=== PATIENT | female | born 1995 | race Caucasian/White ===

== ENCOUNTER 2023-03-14 11:54 | Emergency (ER) | payer OTHER, SELFPAY ==
[2023-03-14 11:55] VITALS: BP 116/66; PULSE 100; RESP 16; TEMP 36.4; O2SAT 100; BMI 26.6
--- NOTE | 2023-03-14 12:27 | CT_ITS ---
STUDY: CT ABDOMEN AND PELVIS WITH CONTRAST REASON FOR EXAM: Female, 28 years old. Right lower quadrant pain RADIATION DOSAGE (If Supplied By Facility): CTDIvol = ( 10.32 ) mGy, DLP = ( 720.09 ) mGycm TECHNIQUE: IV 100mL Isovue-370 was administered. Transaxial images were obtained from the dome of the diaphragm to the symphysis pubis. Multiplanar coronal and sagittal images were reformatted. Individualized Dose Optimization Techniques Were Used For This CT. COMPARISON: No relevant prior comparison study available FINDINGS: The visualized lung bases are unremarkable. The visualized portions of the heart are within normal limits. Normal liver. Normal gallbladder and extrahepatic biliary system. Normal spleen. Normal pancreas. Normal bilateral adrenal glands. Normal visualized stomach. Nonspecific fluid-filled small bowel loops. Mildly dilated bowel loop in the left upper abdomen. No evidence of bowel obstruction. Mild sigmoid diverticulosis without evidence of acute diverticulitis. The appendix is visualized and appears normal. Normal abdominal aorta. No retroperitoneal adenopathy. No evidence of hydronephrosis. Right ureter is slightly prominent without evidence of ureteral stones. Normal urinary bladder. IUD in place. Normal abdominal wall. Unremarkable osseous structures. CT/Abdomen/Pelvis W IV Cont ONLY IMPRESSION: 1. Nonspecific fluid-filled small bowel loops without evidence of bowel obstruction. Enteritis is possible. 2. Otherwise no focal acute inflammatory process. 3. IUD in place. Electronically Signed: Bal Gillis MD at 13:59 EST ,
--- NOTE | 2023-03-14 12:28 | ED.VIS.GI ---
HPI HPI - GI History of Present Illness Chief Complaint: Abd Pain Narrative Narrative: 28-year-old female with history of IBS presenting with right lower quadrant abdominal pain. States started yesterday. States is been pretty constant. Describes it as sharp and aching. Yesterday she had some nausea and vomiting today she has not. She admits to diarrhea today. No fevers or chills at home. Patient states her only abdominal surgery was a suction. Patient states she just finished her menstrual cycle and does not believe she is . No history of abdominal trauma. Denies urinary or vaginal complaints. Patient also notes she is having some tingling in the bilateral hands and around her mouth. Denies history of anxiety. PFSH PFS Medical History (Updated 03/14/23 @ 12:40 by Monisha Robb RN) Gastroenteritis IBS (irritable bowel syndrome) Von Willebrand disease Home Medications alprazolam 0.5 mg tablet (Xanax) 0.5 mg PO TID PRN abdominal pain 3 days #12 tabs 03/14/23 [Rx Last Taken Unknown] dicyclomine 20 mg tablet 20 mg PO TID PRN abdominal pain #30 tabs 03/14/23 [Rx Last Taken Unknown] ondansetron 4 mg disintegrating tablet 4 mg PO Q8H PRN PRN Nausea #14 tabs 03/14/23 [Rx Last Taken Unknown] ondansetron 8 mg disintegrating tablet 8 mg PO Q12H PRN nausea and vomiting 03/14/23 [History Last Taken Unknown] venlafaxine 37.5 mg capsule,extended release 24 hr 37.5 mg PO DAILY 03/14/23 [History Last Taken 03/14/23] Allergy/AdvReac Type Severity Reaction Status Date / Time aspirin AdvReac Severe Bleeding Verified 02/10/21 11:13 ibuprofen AdvReac Severe Bleeding Verified 02/10/21 11:13 naproxen AdvReac Severe Bleeding Verified 02/10/21 11:13 Surgical History (Updated 03/14/23 @ 12:40 by Monisha Robb RN) Hx of section Hx of tonsillectomy Social History Smoking Status: Never smoker ROS ROS ED Review of Systems ROS Unobtainable: Denies due to encephalopathy Constitutional Constitutional ED: Denies chills or fever(s) ENT ENT ED: Denies rhinorrhea or sore throat Cardiovascular Cardiovascular: Denies chest pain or palpitations Respiratory/Chest Respiratory/Chest: Denies cough or dyspnea Gastrointestinal Gastrointestinal: Reports abdominal pain, diarrhea, nausea and vomiting Genitourinary Genitourinary ED: Denies dysuria or hematuria Musculoskeletal Musculoskeletal: Denies arthralgias Integumentary Denies abscess or Abrasions Neurologic Neurologic: Denies headache(s) Psychiatric Psychiatric: Denies anxiety or depression EXAM Physical Exam Const Vital Signs: 03/14/23 11:55 Temperature 97.5 F L Temperature Source Temporal Pulse Rate 100 Respiratory Rate 16 Blood Pressure 116/66 Blood Pressure Mean 82 Pulse Ox 100 Oxygen Delivery Method Room Air Positive well nourished General Appearance ED: NAD; Negative for pallor HEENT Reports moist mucous membranes normocephalic and atraumatic Eyes PERRL and EOMs intact bilaterally Resp normal respiratory effort Effort and Inspection: Negative for respiratory distress Cardio regular rate and regular rhythm GI Palpation: tender RLQ Back/Spine no CVA tenderness Neuro CN's II-XII intact bilaterally Psych mental status grossly normal and thought process normal Skin no wounds General Skin Exam: Negative for jaundice or pallor MDM MDM MDM Narrative Medical decision making narrative: Patient presenting with right flank pain. Differential includes colitis, diverticulitis, gastritis, pancreatitis, acute cholecystitis, constipation, appendicitis, UTI, pyelonephritis, calculi, ureteral calculi, obstruction, malignancy, dehydration, electrolyte abnormalities, ovarian torsion, ovarian cyst, ectopic . CBC will be obtained to assess white blood cell count, hemoglobin, platelets. CMP to assess liver function, renal function, electrolytes. Lipase to assess for pancreatitis. Urinalysis to assess for UTI. hCG to assess for . Medicated with morphine, Zofran, IV fluids. CBC shows no leukocytosis. Hemoglobin stable at 14.8. Platelet count normal at 277. Renal function and electrolytes within normal limits. LFTs are normal. Lipase is normal. hCG is negative. Urinalysis negative. CT of the abdomen pelvis with IV contrast was obtained and shows nonspecific enteritis. Patient had return of pain after been given morphine initially. She states that she does see a GI doctor where she is at [facility] and has had recent endoscopy. She states has been on venlafaxine amitriptyline therapy without any relief. She states she is treated by her primary care physician because her GI doctor is not helpful in her mind. Discussed with Dr. Mcmillan who is on-call who recommended that if the patient is still having this kind of pain to give her a dose of Ativan here in the ED. She will be put on Xanax 0.5 mg 3 times daily per GI. He stated that he does have openings in GI office that may become available this week if the patient calls the office. Patient also given ZoanHenryyl for home. Return precautions were discussed. Impression: 1. 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 2. History of IBS 3. Enteritis Lab Data Attestation: I reviewed the patient's lab results. Labs: Laboratory Results - last 24 hr 03/14/23 03/14/23 12:35 13:10 WBC 8.2 RBC 5.29 Hgb 15.8 H Hct 45.5 MCV 86.0 MCH 29.9 MCHC 34.7 RDW Std Deviation 37.0 RDW Coeff of Johnny 11.8 Plt Count 277 MPV 11.0 Immature Gran % (Auto) 0.200 Neut % (Auto) 64.3 Lymph % (Auto) 26.0 [place] % (Auto) 7.1 Eos % (Auto) 2.0 Baso % (Auto) 0.4 Absolute Neuts (auto) 5.3 Absolute Lymphs (auto) 2.13 Nucleated RBC % 0 Sodium 139 Potassium 3.2 L Chloride 103 Carbon Dioxide 29.0 Anion Gap 7 BUN 8 Creatinine 0.91 Estim Creat Clear Calc 76.82 Est GFR (MDRD) Af Amer 95 Est GFR (MDRD) Non-Af 79 BUN/Creatinine Ratio 8.8 L Glucose 93 Calcium 9.6 Total Bilirubin 0.70 Direct Bilirubin 0.19 AST 13 L ALT 16 Alkaline Phosphatase 66 Total Protein 8.6 H Albumin 4.4 Globulin 4.2 Lipase 57 Serum , Qual NEGATIVE Urine Color Yellow Urine Clarity Clear Urine pH 8.0 Ur Specific [place] 1.010 Urine Protein Negative Urine Glucose (UA) Normal Urine Ketones 15 H Urine Occult Blood Negative Urine Nitrite Negative Urine Bilirubin Negative Urine Urobilinogen Normal Ur Leukocyte Esterase Negative Urine RBC 0 SEEN Urine WBC 0 SEEN Ur Squamous Epith Cells 0-5 SEEN Urine Bacteria 0 SEEN Urine Mucus 0 SEEN Radiography Diagnostic Testing: Clinical Impression(s) from Imaging Studies Abdomen/Pelvis CT 03/14/23 12:27 IMPRESSION: 1. Nonspecific fluid-filled small bowel loops without evidence of bowel obstruction. Enteritis is possible. 2. Otherwise no focal acute inflammatory process. 3. IUD in place. Electronically Signed: Bal Gillis MD at 13:59 EST , Discharge Plan Triage Chief Complaint: Abd Pain ED Provider: Ventura Bah Dx/Rx/DC Orders Instructions: ED Abdominal Pain Unkn Cause Fem Prescriptions: New dicyclomine 20 mg tablet 20 mg PO TID PRN (Reason: abdominal pain) Qty: 30 0RF ondansetron 4 mg tablet,disintegrating 4 mg PO Q8H PRN PRN (Reason: Nausea) Qty: 14 0RF alprazolam [Xanax] 0.5 mg tablet 0.5 mg PO TID PRN (Reason: abdominal pain) 3 Days Qty: 12 0RF No Action venlafaxine 37.5 mg capsule,extended release 24hr 37.5 mg PO DAILY ondansetron 8 mg tablet,disintegrating 8 mg PO Q12H PRN (Reason: nausea and vomiting) Primary Care Provider: Marlene Lara Referrals: Jagjit Mcmillan DO [Med Staff - Active Staff] - As soon as possible Marlene Lara MD [Primary Care Provider] - Disposition Disposition: Home, Self Care
[2023-03-14] MEDS: Ondansetron 4 MG/2 ML Vial IV (12:43)
[2023-03-14] MEDS: 0.9% Normal Saline (1000mL) 1,000 ML 1000 ML IV (12:43)
[2023-03-14] MEDS: Morphine 4 MG/ML Syringe IV (12:45)
[2023-03-14 12:51] LABS: Internal QC Validated? YES +Cl - CLEAR BKGD; Pregnancy, Serum, hCG Quali. NEGATIVE Negative
[2023-03-14 12:52] LABS: Absolute Lymphocyte Count 2.13 X10^3/uL (0.83-4.51); Absolute Neutrophil Count 5.3 X10^3/uL (2.0-7.7); Basophil# 0.03 X10^3/uL; Basophil% 0.4 % (0-1); Eosinophil# 0.16 X10^3/uL; Hematocrit 45.5 % (37-47); Hemoglobin 15.8 g/dL (12.0-15.0); Lymphocyte # 2.13 X10^3/ul (0.83-4.51); Mean Corp Hgb Conc 34.7 g/dL (32-36); Mean Corpuscular Hgb 29.9 pg (27.0-32.0); Monocyte# 0.58 X10^3/uL; Monocyte% 7.1 % (0-10); NRBC Flagged by Analyzer 0 % (0-5); Neutrophil # 5.28 X10^3/uL (2.7-7.7); Neutrophil % 64.3 % (47-70); Platelet Count 277 K/mm3 (150-450); RBC Distribution Width CV 11.8 % (11.6-14.6); Red Blood Count 5.29 M/mm3 (4.2-5.4); White Blood Count 8.2 K/mm3 (4.4-11.0)
[2023-03-14 12:59] LABS: AST(SGOT) 13 U/L (15-37); Alanine Aminotransfer ALT/SGPT 16 U/L (13-56); Albumin, Serum 4.4 g/dL (3.2-5.0); Alkaline Phosphatase 66 U/L (45-117); Anion Gap 7 (5-15); BUN 8 mg/dL (7-18); BUN/Creat Ratio 8.8 RATIO (10-20); Bilirubin, Direct 0.19 mg/dL (0.00-0.30); Calcium,Total 9.6 mg/dL (8.5-10.1); Chloride 103 mmol/L (98-107); Creatinine, Serum 0.91 mg/dL (0.55-1.02); EST Glomerular Filtration Rate 79 mL/min (>60); Est Glom Filt Rate - Afr Amer 95 mL/min (>60); Estimated Creatinine Clearance 76.82 ml/min; Globulin 4.2 g/dL (2.2-4.2); Glucose 93 mg/dL (74-106); Lipase 57 U/L (13-75); Potassium 3.2 mmol/L (3.5-5.1); Protein, Total 8.6 g/dL (6.4-8.2); Sodium Level 139 mmol/L (136-145)
[2023-03-14 13:15] LABS: Bacteria 0 SEEN /hpf (None Seen); Mucous, Urine 0 SEEN /hpf (<or=2+); Red Blood Cells-Urine 0 SEEN /hpf (0-5); White Blood Cells 0 SEEN /hpf (0-5)
[2023-03-14 13:25] LABS: Color, Urine Yellow (Yellow); Glucose, Dipstick Normal (Normal); Ketone-Dipstick 15 mg/dl (Negative); Leukocyte Esterase-Dipstick Negative /ul (Negative); Nitrite-Dipstick Negative (Negative); Occult Blood-Urine Negative /ul (Negative); Protein-Dipstick Negative (Negative); Urine Bilirubin Dipstick Negative (Negative); Urine Clarity Clear (Clear); Urine Urobilinogen Normal (Normal)
[2023-03-14 13:36] LABS: Squamous Epithelial Cells - UA 0-5 SEEN /hpf (5-10)
[2023-03-14 16:00] VITALS: BP 116/64; PULSE 86; RESP 16; O2SAT 99
[2023-03-14] MEDS: LORazepam 2 MG/ML Syringe 0.5 MG IV (16:12)
[2023-03-14 16:19] VITALS: BP 116/64; PULSE 86; RESP 16; O2SAT 99
== END 2023-03-14 16:30 | disposition home or self-care (01) ==
PROVIDERS: Emergency Provider Student in an Organized Health Care Education/Training Program; PCP Family Medicine; Visit Provider Student in an Organized Health Care Education/Training Program
DX: K52.9 Noninfective gastroenteritis and colitis, unspecified (principal); Z87.19 Personal history of other diseases of the digestive system
CPT/HCPCS: 74177; 80048; 80076; 81001; 83690; 84703; 85025; 96361; 96374; 96375; 99283; J7030; Q9967; A4216; J2405

== ENCOUNTER 2023-06-16 11:04 | Emergency (ER) | payer OTHER, SELFPAY ==
[2023-06-16 11:04] VITALS: BP 119/85; PULSE 135; RESP 18; TEMP 36.3; O2SAT 100; BMI 28.2
[2023-06-16] MEDS: 0.9% Normal Saline (1000mL) 1,000 ML 1000 ML IV (11:30)
--- NOTE | 2023-06-16 11:56 | ED.VIS.GI ---
HPI HPI - GI History of Present Illness Chief Complaint: Abd Pain Detail of Chief Complaint: Nausea, vomiting and diarrhea. Informant: patient Abdominal Pain/Flank Pain Onset: Month(s) Context: Gradual Onset Timing: Intermittent Location: Epigastric Current Severity: Mild Maximum Severity: Mild Worsened by: Nothing Nausea/Vomiting/Emesis GI Symptom: Positive for Nausea and Vomiting Onset: Days and Month(s) Severity: Mild Diarrhea/Melena/Hematochezia GI Symptom: Positive for Diarrhea; Negative for Melena or Hematochezia Onset: Today Stool Quality: Positive for Watery Severity: Moderate Associated Symptoms Associated Symptoms: Negative for Dysuria, Frequency, Hematuria or Urgency Narrative Narrative: 28-year-old female history of IBS has had extensive workup by GI doctors at the [facility] and also currently seeing GI at [facility]. She had a CAT scan here in February that showed enteritis. She has had upper and lower endoscopy through the [facility] but was unremarkable with a biopsy. She had a recent gastric emptying study at [facility] which was negative and has a pending HIDA scan next week. Patient states she has had nausea and vomiting since Wednesday as her diarrhea today. No fever. Over the last 6 months she has had a 53 pound weight loss. She has Zofran at home and Phenergan for nausea. Her only prior abdominal surgery was ureter reimplantation at a very young age and a prior 7 years ago. Prior similar symptoms: Yes Recent Illness/Hospitalization: No PFSH [facility] Medical History Gastroenteritis IBS (irritable bowel syndrome) Von Willebrand disease Home Medications alprazolam 0.5 mg tablet (Xanax) 0.5 mg PO TID PRN abdominal pain 3 days #12 tabs 03/14/23 [Rx Last Taken Unknown] dicyclomine 20 mg tablet 20 mg PO TID PRN abdominal pain #30 tabs 03/14/23 [Rx Last Taken Unknown] ondansetron 4 mg disintegrating tablet 4 mg PO Q8H PRN PRN Nausea #14 tabs 03/14/23 [Rx Last Taken Unknown] ondansetron 8 mg disintegrating tablet 8 mg PO Q12H PRN nausea and vomiting 03/14/23 [History Last Taken Unknown] venlafaxine 37.5 mg capsule,extended release 24 hr 37.5 mg PO DAILY 03/14/23 [History Last Taken 03/14/23] Allergy/AdvReac Type Severity Reaction Status Date / Time dicyclomine Allergy Mild palpitation Verified 06/16/23 12:03 s aspirin AdvReac Severe Bleeding Verified 06/16/23 11:06 ibuprofen AdvReac Severe Bleeding Verified 06/16/23 11:06 naproxen AdvReac Severe Bleeding Verified 06/16/23 11:06 Surgical History Hx of section Hx of tonsillectomy Social History Smoking Status: Never smoker ROS ROS ED ROS Narrative Nausea, vomiting and diarrhea. Abdominal cramping. Review of Systems ROS Unobtainable: Denies due to encephalopathy Constitutional Constitutional ED: Denies chills or fever(s) ENT ENT ED: Denies ear pain Cardiovascular Cardiovascular: Denies chest pain Respiratory/Chest Respiratory/Chest: Denies cough or dyspnea Gastrointestinal Gastrointestinal: Reports abdominal pain, constipation, diarrhea, nausea and vomiting; Denies melena Genitourinary Genitourinary ED: Denies dysuria or hematuria Musculoskeletal Musculoskeletal: Denies arthralgias Integumentary Denies abscess Neurologic Neurologic: Denies headache(s) Psychiatric Psychiatric: Denies anxiety Endocrine Endocrinology: Denies polydipsia Hematologic/Lymphatic Hematologic/Lymphatic: Denies easy bleeding Allergic/Immunologic Allergic/Immunologic ED: Denies tongue swelling or urticaria EXAM Physical Exam Narrative Exam Narrative: Well-appearing 28-year-old female. Vital signs stable she is tachycardic 135. H EENT exam unremarkable. Moist with membranes. Neck nontender. Lungs clear to auscultation bilaterally. Heart tachycardic rate about 110 on my exam no murmur. Chest wall nontender. Abdomen soft, nontender nondistended normal bowel sounds no peritoneal signs. No hernia or mass. No obstruction. No right upper or right lower quadrant tenderness. Extremities moves all 4. Nontender no edema. Neurologically awake alert no focal motor deficits. Back nontender. Neurologically she is awake and alert. She is a very benign exam. She has a totally benign abdominal exam. She is already received almost a liter of IV normal saline. Const Vital Signs: 06/16/23 11:04 06/16/23 12:11 Temperature 97.4 F L Temperature Source Temporal Pulse Rate 135 H 89 Respiratory Rate 18 18 Blood Pressure 119/85 H 115/65 Blood Pressure Mean 96 81 Pulse Ox 100 100 Oxygen Delivery Method Room Air Room Air Positive well nourished and well developed; Negative for cachectic, contractures or unkempt General Appearance ED: well developed; Negative for unkempt, cachectic, contractures or pallor Nutritional Appearance: Negative for cachectic HEENT Reports moist mucous membranes; Denies dry mucous membranes normocephalic and atraumatic; Negative for trauma or tenderness Mouth ED: No dry mucous membranes Mouth: No dry mucous membranes Eyes PERRL and EOMs intact bilaterally General Eye ED: Negative for pale conjunctiva, scleral icterus or other Neck supple and no JVD General: Negative for tenderness Carotids: Negative for other Lymph Lymphatic: Negative for other Resp normal respiratory effort and clear to auscultation bilaterally Effort and Inspection: Negative for respiratory distress Auscultation: Negative for rales, rhonchi or wheezes Cardio regular rhythm, S1 normal heart sound, S2 normal heart sound and no murmurs; Negative for regular rate Rate: tachycardic GI non-tender, non-distended and no masses Inspection: Negative for abdominal distention Auscultation: normoactive bowel sounds Palpation: soft; Negative for tender, guarding or rebound tenderness present Back/Spine no CVA tenderness General Back: Negative for CVA tenderness Cervical Spine: Negative for cervical spine tenderness Thoracic Spine / Upper Back: Negative for thoracic spinal tenderness Lumbar Spine / Lower Back: Negative for lumbar spinal tenderness Coccyx: Negative for other Extremity full ROM General Extremety ED: Negative for edema, tenderness or other findings General Extremity: Negative for edema or other findings Neuro CN's II-XII intact bilaterally and moves all extremities Sensorium / Orientation: alert, oriented to person, oriented to place and oriented to time; Negative for orientation impaired, confused, lethargic or stuporous Motor Exam: strength 5/5 throughout Psych mental status grossly normal and thought process normal Appearance: Negative for unkempt Attitude: No agitated Mood & Affect: Negative for depressed, anxious or tearful Skin no wounds General Skin Exam: Negative for jaundice or pallor Lesions: no lesions Rashes: no rashes Trauma: Negative for abrasion Nails: Negative for discolored MDM MDM MDM Narrative Medical decision making narrative: Well-appearing 28-year-old female history of IBS and undergoing significant workup through GI at 2 other hospitals that currently has not found any other diagnoses. Complaining of nausea vomiting and diarrhea today. Treated with IV fluids. Screening labs to be obtained. She understands that we probably will not make any new diagnoses today. Continue outpatient follow-up. She will be given Zofran for nausea and Bentyl for pain. Patient was initially written for Bentyl which she said it does not help her and did not want to take it. She was given 4 mg IV morphine. Repeat exam she is doing well at 1:43 PM. She will be discharged to home. Follow-up with her primary care physician and her GI doctors at [facility]. History & Record Review Discussion w/independent historian: Patient Additional record(s) reviewed:: Prior inpatient record, Prior outpatient record, Prior ED visit and Prior labs Lab Data Attestation: I reviewed the patient's lab results. Lab results narrative: CBC normal. White count 10. H&H 15 and 44. Platelets 260. Electrolytes show sodium 139 gap of 2. Normal BUN and creatinine. Liver enzymes unremarkable. Lipase normal at 26. Labs: Laboratory Results - last 24 hr 06/16/23 11:20 WBC 10.2 RBC 5.00 Hgb 15.2 H Hct 44.7 MCV 89.4 MCH 30.4 MCHC 34.0 RDW Std Deviation 38.6 RDW Coeff of Johnny 11.9 Plt Count 260 MPV 10.9 Immature Gran % (Auto) 0.400 Neut % (Auto) 74.1 H Lymph % (Auto) 16.4 L [place] % (Auto) 5.7 Eos % (Auto) 2.8 Baso % (Auto) 0.6 Absolute Neuts (auto) 7.5 Absolute Lymphs (auto) 1.66 Nucleated RBC % 0 Sodium 139 Potassium 3.6 Chloride 108 H Carbon Dioxide 29.0 Anion Gap 2 L BUN 9 Creatinine 0.65 Estim Creat Clear Calc 114.49 Est GFR (MDRD) Af Amer 140 Est GFR (MDRD) Non-Af 116 BUN/Creatinine Ratio 13.8 Glucose 86 Calcium 8.9 Total Bilirubin 0.50 AST 18 ALT 21 Alkaline Phosphatase 68 Total Protein 7.6 Albumin 3.8 Globulin 3.8 Albumin/Globulin Ratio 1.0 Lipase 26 Discharge Plan Triage Chief Complaint: Abd Pain ED Provider: Branden Huang Dx/Rx/DC Orders Clinical Impression: Nausea, vomiting, and diarrhea, History of IBS, History of von Willebrand's disease, 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 Instructions: ED Abdominal Pain Unkn Cause Fem Prescriptions: No Action venlafaxine 37.5 mg capsule,extended release 24hr 37.5 mg PO DAILY ondansetron 8 mg tablet,disintegrating 8 mg PO Q12H PRN (Reason: nausea and vomiting) dicyclomine 20 mg tablet 20 mg PO TID PRN (Reason: abdominal pain) Qty: 30 0RF ondansetron 4 mg tablet,disintegrating 4 mg PO Q8H PRN PRN (Reason: Nausea) Qty: 14 0RF alprazolam [Xanax] 0.5 mg tablet 0.5 mg PO TID PRN (Reason: abdominal pain) 3 Days Qty: 12 0RF Primary Care Provider: Marlene Lara Referrals: Marlene Lara MD [Primary Care Provider] - As Needed Activity Restrictions/Additional Instructions: Use your nausea medication at home as needed. Plenty of fluids and rest. Follow-up with your GI doctors at [facility] for further evaluation and your HIDA scan next week. Disposition Disposition: Home, Self Care
[2023-06-16] MEDS: Ondansetron 4 MG/2 ML Vial IV (12:03)
[2023-06-16 12:11] VITALS: BP 115/65; PULSE 89; RESP 18; O2SAT 100
[2023-06-16 12:22] LABS: Absolute Lymphocyte Count 1.66 X10^3/uL (0.83-4.51); Absolute Neutrophil Count 7.5 X10^3/uL (2.0-7.7); Basophil# 0.06 X10^3/uL; Basophil% 0.6 % (0-1); Eosinophil# 0.28 X10^3/uL; Eosinophils% 2.8 % (0-5); Hematocrit 44.7 % (37-47); Hemoglobin 15.2 g/dL (12.0-15.0); Lymphocyte # 1.66 X10^3/ul (0.83-4.51); Lymphocyte % 16.4 % (19-41); Mean Corpuscular Hgb 30.4 pg (27.0-32.0); Mean Corpuscular Volume 89.4 fL (81-99); Mean Platelet Vol. 10.9 fl (6.2-12.0); Monocyte# 0.58 X10^3/uL; Monocyte% 5.7 % (0-10); NRBC Flagged by Analyzer 0 % (0-5); Neutrophil # 7.53 X10^3/uL (2.7-7.7); Neutrophil % 74.1 % (47-70); Platelet Count 260 K/mm3 (150-450); RBC Distribution Width CV 11.9 % (11.6-14.6); RBC Distribution Width SD 38.6 fl (35.1-43.9); White Blood Count 10.2 K/mm3 (4.4-11.0)
[2023-06-16 12:23] LABS: AST(SGOT) 18 U/L (15-37); Alanine Aminotransfer ALT/SGPT 21 U/L (13-56); Albumin, Serum 3.8 g/dL (3.2-5.0); Alkaline Phosphatase 68 U/L (45-117); Anion Gap 2 (5-15); BUN 9 mg/dL (7-18); BUN/Creat Ratio 13.8 RATIO (10-20); Calcium,Total 8.9 mg/dL (8.5-10.1); Chloride 108 mmol/L (98-107); Creatinine, Serum 0.65 mg/dL (0.55-1.02); EST Glomerular Filtration Rate 116 mL/min (>60); Est Glom Filt Rate - Afr Amer 140 mL/min (>60); Estimated Creatinine Clearance 114.49 ml/min; Globulin 3.8 g/dL (2.2-4.2); Glucose 86 mg/dL (74-106); Lipase 26 U/L (13-75); Potassium 3.6 mmol/L (3.5-5.1); Protein, Total 7.6 g/dL (6.4-8.2); Sodium Level 139 mmol/L (136-145)
[2023-06-16] MEDS: Morphine 4 MG/ML Syringe IV (13:10)
[2023-06-16 13:54] VITALS: BP 115/65; PULSE 89; RESP 18; TEMP 36.3; O2SAT 100
== END 2023-06-16 14:02 | disposition home or self-care (01) ==
PROVIDERS: Emergency Provider Emergency Medicine; PCP Family Medicine; Visit Provider Emergency Medicine
DX: R11.2 Nausea with vomiting, unspecified (principal); D68.00 Von Willebrand disease, unspecified; Z87.19 Personal history of other diseases of the digestive system; K59.00 Constipation, unspecified; R19.7 Diarrhea, unspecified; R10.9 Unspecified abdominal pain
CPT/HCPCS: 80053; 83690; 85025; 96361; 96374; 96375; 99283; J7030; A4216; J2405

== ENCOUNTER 2024-05-31 09:03 | Emergency (ER) | payer OTHER, SELFPAY ==
[2024-05-31 09:04] VITALS: BP 118/84; PULSE 98; RESP 18; TEMP 37.2; O2SAT 99; BMI 30.2
--- NOTE | 2024-05-31 09:18 | ED.VIS.GI ---
HPI HPI - GI History of Present Illness Chief Complaint: Abd Pain Narrative Narrative: History of irritable syndrome status post cholecystectomy August 2023 presents with nausea vomiting diarrhea for last couple days. She does have history of von Willebrand's disease. Intermittent bloody stools. Pain across her upper abdomen. No urinary symptoms. No fevers. States had 3 loose stools today. She has been vomiting only in the mornings. She has seen GI with upper and lower scopes along with gastric emptying test has been negative. She was doing better post her cholecystectomy. No recent antibiotics. Zofran taken at 4 in the morning, still currently nauseated. Last menstrual period the 17th of last month, she does have an IUD. Prior similar symptoms: Yes PFSH PFSH Medical History IBS (irritable bowel syndrome) Von Willebrand disease Gastroenteritis Home Medications ?Medication ?Instructions ?Recorded ?Last Taken ?Type alprazolam 0.5 mg tablet (Xanax) 0.5 mg PO TID PRN abdominal pain 3 03/14/23 Unknown Rx days #12 tabs dicyclomine 20 mg tablet 20 mg PO TID PRN abdominal pain 03/14/23 Unknown Rx #30 tabs ondansetron 4 mg disintegrating 4 mg PO Q8H PRN PRN Nausea #14 tabs 03/14/23 Unknown Rx tablet ondansetron 8 mg disintegrating 8 mg PO Q12H PRN nausea and 03/14/23 Unknown History tablet vomiting venlafaxine 37.5 mg 37.5 mg PO DAILY 03/14/23 03/14/23 History capsule,extended release 24 hr fluconazole 150 mg tablet 150 mg PO X1 PRN yeast 2 doses #2 05/31/24 Unknown Rx tabs nitrofurantoin 100 mg PO Q12 #10 CAPSULES 05/31/24 Unknown Rx monohydrate/macrocrystals 100 mg capsule Allergy/AdvReac Type Severity Reaction Status Date / Time dicyclomine Allergy Mild palpitation Verified 05/31/24 09:04 s aspirin AdvReac Severe Bleeding Verified 05/31/24 09:04 ibuprofen AdvReac Severe Bleeding Verified 05/31/24 09:04 naproxen AdvReac Severe Bleeding Verified 05/31/24 09:04 Family History no significant family his Surgical History Hx of section Hx of tonsillectomy Social History Smoking Status: Former smoker ROS ROS ED Constitutional Constitutional ED: Denies chills, fever(s) or sweats ENT ENT ED: Denies sore throat Cardiovascular Cardiovascular: Denies chest pain, leg edema, palpitations or racing heartbeat Respiratory/Chest Respiratory/Chest: Denies cough, dyspnea or dyspnea on exertion Gastrointestinal Gastrointestinal: Reports abdominal pain, diarrhea, nausea and vomiting Genitourinary Genitourinary ED: Denies dysuria, hematuria or urinary frequency Musculoskeletal Musculoskeletal: Denies back pain, extremity pain or neck pain Integumentary Denies rash or wounds Neurologic Neurologic: Denies headache(s), paresthesias or weakness EXAM Physical Exam Const Vital Signs: 05/31/24 09:04 05/31/24 11:03 05/31/24 13:00 Temperature 98.9 F Temperature Source Oral Pulse Rate 98 77 72 Respiratory Rate 18 18 Blood Pressure 118/84 H 109/65 107/59 L Blood Pressure Mean 95 79 75 Pulse Ox 99 100 100 Oxygen Delivery Method Room Air Room Air Room Air 05/31/24 13:51 Temperature Temperature Source Pulse Rate Respiratory Rate Blood Pressure 107/59 L Blood Pressure Mean 75 Pulse Ox Oxygen Delivery Method Positive well nourished and well developed General Appearance ED: well developed and NAD HEENT Reports moist mucous membranes normocephalic and atraumatic Eyes General Eye ED: Yes normal appearance of both eyes Neck full ROM Chest Wall Chest: Negative for tenderness Resp normal respiratory effort and normal air movement Effort and Inspection: symmetric chest movement; Negative for respiratory distress Cardio regular rate, regular rhythm and no murmurs Peripheral Pulses: pulses 2+ throughout GI normal to inspection, nondistended, normoactive bowel sounds GI Narrative: Minimal mid abdominal tenderness. Negative Nava's or McBurney's tenderness. No guarding or rebound. Palpation: Negative for guarding or rebound tenderness present Extremity normal to inspection General Extremety ED: Negative for edema or tenderness General Extremity: Negative for edema Neuro oriented x3 and no sensory deficits noted Sensorium / Orientation: awake and alert Skin no rashes or lesions noted and no wounds MDM MDM MDM Narrative Medical decision making narrative: Interventions / MDM: Differential diagnosis: Vomiting diarrhea, abdominal pain, history of IBS, UTI Diagnosis considered but do not suspect: Bowel obstruction however CT negative. No clinical ileus. C. difficile however labs normal. My EKG interpretation: N/A Imaging independently reviewed and interpreted by myself: CT abdomen pelvis: Questionable ileus per radiology. External documents reviewed: N/A Test considered but not ordered:N/A ED course: Vital stable nonsurgical abdomen. IV established for labs urine will be sent. Will give fluids and Zofran. Stool studies ordered. Will reevaluate. 1110: Abdominal labs normal. Nausea improved however still complains of abdominal pain. She cannot do Bentyl due to palpitations. Will dose IV Pepcid. Discussed further workup with CT scan for which she would like to pursue. She did give us stool samples which is being sent to the lab at this time. 1345: C. difficile negative culture pending. Urine did note leukocytes 2+ bacteria 5-10 squamous cells. For patient history of ureteral reflux repair as a child she states any signs of infection she is treated as it can lead to pyelonephritis. Her CT scan possible ileus per radiology however she is having loose stools, therefore less likely ileus concerns. She is able tolerate p.o. fluids, oral antibiotics was started. She has Pepcid Zofran at home to use. Prescription antibiotics and Diflucan sent to her pharmacy. Return precautions. All questions were answered. Re-evaluation: stable Disposition discussed with patient/family/significant other: Patient Case discussed with consulting clinician: N/A This note was generated with [employer] dictation software. It may contain incorrect words, spelling, and punctuation that were not noted in checking the note before signing. Lab Data Attestation: I reviewed the patient's lab results. Labs: Laboratory Results - last 24 hr 05/31/24 05/31/24 09:10 09:22 WBC 7.7 RBC 4.99 Hgb 15.3 H Hct 44.6 MCV 89.4 MCH 30.7 MCHC 34.3 RDW Std Deviation 38.7 RDW Coeff of Johnny 11.9 Plt Count 250 MPV 10.2 Immature Gran % (Auto) 0.500 Neut % (Auto) 53.2 Lymph % (Auto) 29.5 [place] % (Auto) 8.4 Eos % (Auto) 7.6 H Baso % (Auto) 0.8 Absolute Neuts (auto) 4.1 Absolute Lymphs (auto) 2.26 Nucleated RBC % 0 Sodium 138 Potassium 3.5 Chloride 105 Carbon Dioxide 27.0 Anion Gap 6 BUN 8 Creatinine 0.71 Estim Creat Clear Calc 111.87 Est GFR (MDRD) Af Amer 125 Est GFR (MDRD) Non-Af 103 BUN/Creatinine Ratio 11.2 Glucose 88 Calcium 9.0 Total Bilirubin 0.60 Direct Bilirubin 0.11 AST 17 ALT 22 Alkaline Phosphatase 63 Total Protein 7.7 Albumin 3.8 Globulin 3.9 Albumin/Globulin Ratio 1.0 Lipase 24 Urine Color Yellow Urine Clarity Sl. Cloudy Urine pH 7.0 Ur Specific [place] 1.010 Urine Protein 15 H Urine Glucose (UA) Normal Urine Ketones Negative Urine Occult Blood 25 H Urine Nitrite Negative Urine Bilirubin Negative Urine Urobilinogen Normal Ur Leukocyte Esterase 25 H Urine RBC 0-5 SEEN Urine WBC 0-5 SEEN Ur Squamous Epith Cells 5-10 SEEN Urine Bacteria 2+ Urine Mucus 0 SEEN Urine Test Negative Radiography Diagnostic Testing: Clinical Impression(s) from Imaging Studies Abdomen/Pelvis CT 05/31/24 11:06 IMPRESSION: Mild distended fluid-filled small bowel loops in left upper quadrant. Fluid and fecal material seen in the right hemicolon. The patient is status post cholecystectomy. One or more dose reduction techniques were used (e.g., Automated exposure control, adjustment of the mA and/or kV according to patient size, use of iterative reconstruction technique). Reading Location: [place] [address] Discharge Plan Triage Chief Complaint: Abd Pain ED Provider: Alonzo Argueta Dx/Rx/DC Orders Clinical Impression: Vomiting, Diarrhea, 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, History of IBS, UTI (urinary tract infection) Instructions: Abdominal Pain, ED Diarrhea, Unknown Cause, ED Vomiting (Adult) Prescriptions: New nitrofurantoin monohyd/m-cryst 100 mg capsule 100 mg PO Q12 Qty: 10 0RF fluconazole 150 mg tablet 150 mg PO X1 PRN (Reason: yeast) Qty: 2 0RF Rx Instructions: take if you develop yeast, repeat in 1 week if needed No Action venlafaxine 37.5 mg capsule,extended release 24hr 37.5 mg PO DAILY ondansetron 8 mg tablet,disintegrating 8 mg PO Q12H PRN (Reason: nausea and vomiting) dicyclomine 20 mg tablet 20 mg PO TID PRN (Reason: abdominal pain) Qty: 30 0RF ondansetron 4 mg tablet,disintegrating 4 mg PO Q8H PRN PRN (Reason: Nausea) Qty: 14 0RF alprazolam [Xanax] 0.5 mg tablet 0.5 mg PO TID PRN (Reason: abdominal pain) 3 Days Qty: 12 0RF Stand Alone Forms: ED Work / School Excuse Primary Care Provider: Marlene Lara Referrals: Marlene Lara MD [Primary Care Provider] - Activity Restrictions/Additional Instructions: C. difficile negative. Stool culture pending results. Urine with signs of bacteria with cultures pending. You are started on antibiotic. Your CT abdomen pelvis possible ileus, clinically no ileus as you are having diarrhea. Continue oral fluids for hydration. Continue your Zofran and Pepcid. Use Diflucan as needed if you develop yeast. Follow-up with your doctor. You develop worsening symptoms not controlled medications, return to ED for reevaluation. Print Language: Serbian Disposition Disposition: Home, Self Care
[2024-05-31 09:25] LABS: Mucous, Urine 0 SEEN /hpf (<or=2+)
[2024-05-31 09:31] LABS: Absolute Lymphocyte Count 2.26 X10^3/uL (0.83-4.51); Absolute Neutrophil Count 4.1 X10^3/uL (2.0-7.7); Basophil# 0.06 X10^3/uL; Basophil% 0.8 % (0-1); Eosinophil# 0.58 X10^3/uL; Eosinophils% 7.6 % (0-5); Hematocrit 44.6 % (37-47); Hemoglobin 15.3 g/dL (12.0-15.0); Lymphocyte # 2.26 X10^3/ul (0.83-4.51); Lymphocyte % 29.5 % (19-41); Mean Corp Hgb Conc 34.3 g/dL (32-36); Mean Corpuscular Hgb 30.7 pg (27.0-32.0); Mean Corpuscular Volume 89.4 fL (81-99); Mean Platelet Vol. 10.2 fl (6.2-12.0); Monocyte# 0.64 X10^3/uL; Monocyte% 8.4 % (0-10); NRBC Flagged by Analyzer 0 % (0-5); Neutrophil # 4.07 X10^3/uL (2.7-7.7); Neutrophil % 53.2 % (47-70); Platelet Count 250 K/mm3 (150-450); RBC Distribution Width CV 11.9 % (11.6-14.6); RBC Distribution Width SD 38.7 fl (35.1-43.9); Red Blood Count 4.99 M/mm3 (4.2-5.4); White Blood Count 7.7 K/mm3 (4.4-11.0)
[2024-05-31 09:38] LABS: Color, Urine Yellow (Yellow); Glucose, Dipstick Normal (Normal); Ketone-Dipstick Negative (Negative); Leukocyte Esterase-Dipstick 25 /ul (Negative); Nitrite-Dipstick Negative (Negative); Occult Blood-Urine 25 /ul (Negative); Protein-Dipstick 15 mg/dl (Negative); Urine Bilirubin Dipstick Negative (Negative); Urine Clarity Sl. Cloudy (Clear); Urine Urobilinogen Normal (Normal)
[2024-05-31] MEDS: Ondansetron 4 MG/2 ML Vial IV (09:39)
[2024-05-31] MEDS: 0.9% Normal Saline (1000mL) 1,000 ML 1000 ML IV (09:40)
[2024-05-31 09:45] LABS: Bacteria 2+ /hpf (None Seen); Squamous Epithelial Cells - UA 5-10 SEEN /hpf (5-10)
[2024-05-31 09:46] LABS: Internal QC Validated? YES +Cl - CLEAR BKGD; Pregnancy, Urine Negative Negative; Red Blood Cells-Urine 0-5 SEEN /hpf (0-5); White Blood Cells 0-5 SEEN /hpf (0-5)
[2024-05-31 09:51] LABS: AST(SGOT) 17 U/L (15-37); Alanine Aminotransfer ALT/SGPT 22 U/L (13-56); Albumin, Serum 3.8 g/dL (3.2-5.0); Alkaline Phosphatase 63 U/L (45-117); Anion Gap 6 (5-15); BUN 8 mg/dL (7-18); BUN/Creat Ratio 11.2 RATIO (10-20); Bilirubin, Direct 0.11 mg/dL (0.00-0.30); Chloride 105 mmol/L (98-107); Creatinine, Serum 0.71 mg/dL (0.55-1.02); EST Glomerular Filtration Rate 103 mL/min (>60); Est Glom Filt Rate - Afr Amer 125 mL/min (>60); Estimated Creatinine Clearance 111.87 ml/min; Globulin 3.9 g/dL (2.2-4.2); Glucose 88 mg/dL (74-106); Potassium 3.5 mmol/L (3.5-5.1); Protein, Total 7.7 g/dL (6.4-8.2); Sodium Level 138 mmol/L (136-145)
[2024-05-31 10:35] LABS: Lipase 24 U/L (13-75)
[2024-05-31 11:03] VITALS: BP 109/65; PULSE 77; O2SAT 100
--- NOTE | 2024-05-31 11:06 | CT_ITS ---
PROCEDURE: ABDOMEN/PELVIS W IV CONT ONLY REASON FOR EXAM: Nausea and vomiting and diarrhea since Wednesday. TECHNIQUE: Abdomen and pelvis CT with intravenous contrast. Oral contrast was also used. IV CONTRAST: 100 cc of Isovue-300. COMPARISON: Comparison is made with prior study dated March 14, 2023. FINDINGS: Lung bases: Clear Liver: Unremarkable. Gallbladder: Surgically absent. Spleen: Unremarkable. Pancreas: Unremarkable. Adrenals: Unremarkable. Kidneys: Unremarkable. Bladder: Unremarkable. Reproductive Organs: IUD is seen within the uterus. Bowel: Fluid and fecal material seen in the right hemicolon. Mildly distended fluid-filled small bowel loops in the left upper quadrant. This may represent localized ileus. Appendix: Normal. Lymph nodes: No suspicious lymph node enlargement. Vasculature: Major vascular structures are unremarkable. Peritoneum / Retroperitoneum: No ascites. No free air. Bones: Unremarkable. CT/Abdomen/Pelvis W IV Cont ONLY IMPRESSION: Mild distended fluid-filled small bowel loops in left upper quadrant. Fluid and fecal material seen in the right hemicolon. The patient is status post cholecystectomy. One or more dose reduction techniques were used (e.g., Automated exposure contr ol, adjustment of the mA and/or kV according to patient size, use of iterative reconstruction technique). Reading Location: [place] [address]
[2024-05-31] MEDS: Famotidine 200 MG/20 ML MDV 20 MG in 0.9% Normal Saline (Pres. free 8 ML 300 MG IV (11:42)
[2024-05-31 13:00] VITALS: BP 107/59; PULSE 72; RESP 18; O2SAT 100
[2024-05-31] MEDS: Nitrofurantoin Macrocrystals 100 MG Capsule PO (13:30)
[2024-05-31 13:51] VITALS: BP 107/59
== END 2024-05-31 14:23 | disposition home or self-care (01) ==
PROVIDERS: Emergency Provider Emergency Medicine; PCP Family Medicine; Visit Provider Emergency Medicine
DX: R11.2 Nausea with vomiting, unspecified (principal); D68.00 Von Willebrand disease, unspecified; R00.2 Palpitations; Z87.891 Personal history of nicotine dependence; Z90.49 Acquired absence of other specified parts of digestive tract; R19.7 Diarrhea, unspecified; R10.9 Unspecified abdominal pain; N39.0 Urinary tract infection, site not specified; K58.9 Irritable bowel syndrome, unspecified
CPT/HCPCS: 74177; 80053; 80076; 81001; 81025; 83690; 85025; 87086; 87088; 87493; 87506; 96361; 96374; 96375; 99283; Q9967; A4216; J2405

== ENCOUNTER 2024-08-31 13:35 | Emergency (ER) | payer OTHER, SELFPAY ==
[2024-08-31 13:36] VITALS: BP 116/79; PULSE 109; RESP 15; TEMP 36.9; O2SAT 97; BMI 31.8
[2024-08-31 14:18] LABS: Absolute Lymphocyte Count 3.11 X10^3/uL (0.83-4.51); Absolute Neutrophil Count 5.7 X10^3/uL (2.0-7.7); Basophil# 0.07 X10^3/uL; Basophil% 0.7 % (0-1); Eosinophil# 0.28 X10^3/uL; Eosinophils% 2.8 % (0-5); Hematocrit 44.4 % (37-47); Hemoglobin 15.7 g/dL (12.0-15.0); Lymphocyte # 3.11 X10^3/ul (0.83-4.51); Lymphocyte % 31.1 % (19-41); Mean Corp Hgb Conc 35.4 g/dL (32-36); Mean Corpuscular Hgb 30.4 pg (27.0-32.0); Mean Platelet Vol. 10.5 fl (6.2-12.0); Monocyte# 0.83 X10^3/uL; Monocyte% 8.3 % (0-10); NRBC Flagged by Analyzer 0 % (0-5); Neutrophil # 5.69 X10^3/uL (2.7-7.7); Neutrophil % 56.8 % (47-70); Platelet Count 260 K/mm3 (150-450); RBC Distribution Width CV 11.8 % (11.6-14.6); RBC Distribution Width SD 37.3 fl (35.1-43.9); Red Blood Count 5.16 M/mm3 (4.2-5.4)
[2024-08-31 14:30] LABS: Internal QC Validated? YES +Cl - CLEAR BKGD; Pregnancy, Serum, hCG Quali. NEGATIVE Negative; Record Kit Lot#, Serum Preg. 929381
[2024-08-31 14:35] LABS: ALB/GLOB Ratio 1.4 RATIO (0.9-2.4); AST(SGOT) 24 U/L (<=31); Alanine Aminotransfer ALT/SGPT 18 U/L (<=34); Albumin, Serum 4.6 g/dL (3.5-5.0); Alkaline Phosphatase 68 U/L (35-104); Anion Gap 11 (5-15); BUN 7 mg/dL (4-19); BUN/Creat Ratio 9.1 RATIO (10-20); Calcium,Total 9.2 mg/dL (7.6-11.0); Carbon Dioxide 26.4 mmol/L (21.0-32.0); Chloride 101 mmol/L (98-108); Creatinine, Serum 0.72 mg/dL (0.70-1.20); EST Glomerular Filtration Rate 117 (>60); Estimated Creatinine Clearance 113.18 ml/min (50-250); Globulin 3.3 g/dL (2.2-4.2); Glucose 80 mg/dL (70-99); Lipase 253 U/L (13-75); Potassium 3.4 mmol/L (3.3-5.1); Protein, Total 7.9 g/dL (5.9-8.4); Sodium Level 138 mmol/L (133-145); Total Bilirubin 0.59 mg/dL (0.00-1.30)
[2024-08-31 15:35] VITALS: BP 103/63; PULSE 89; O2SAT 98
--- NOTE | 2024-08-31 15:47 | ED.VIS.GI ---
HPI HPI - GI History of Present Illness Chief Complaint: GI Bleed Detail of Chief Complaint: 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 and rectal bleeding Informant: patient Narrative Narrative: Patient presents with abdominal pain and rectal bleeding that started 2 days ago. She also has history of IBS and history of of von Willebrand's disease type I. She called her lab courier 2 days ago who told her to take her DDAVP which she did in the bleeding seemed to slow down a little bit. Patient also complaining of a headache which she states is a side effect of taking the DDAVP. She has had watery stools that have been bloody. She states that her last colonoscopy was about a year ago and she was told she had diverticulosis and some inflammation of the colon but not totally consistent with Crohn's. Patient denies any fevers. She denies urinary symptoms. She has had no nausea or vomiting. [facility] Medical History IBS (irritable bowel syndrome) Von Willebrand disease Gastroenteritis Home Medications ?Medication ?Instructions ?Recorded ?Last Taken ?Type alprazolam 0.5 mg tablet (Xanax) 0.5 mg PO TID PRN abdominal pain 3 03/14/23 Unknown Rx days #12 tabs ondansetron 8 mg disintegrating 8 mg PO Q12H PRN nausea and 03/14/23 Unknown History tablet vomiting alprazolam 0.5 mg tablet (Xanax) 0.5 mg PO BID PRN anxiety #10 tabs 08/31/24 Unknown Rx amoxicillin 875 mg-potassium 1 tab PO BID #20 tabs 08/31/24 Unknown Rx clavulanate 125 mg tablet escitalopram oxalate 20 mg tablet 20 mg PO QHS 08/31/24 08/30/24 History hyoscyamine sulfate 0.125 mg 0.125 - 0.25 mg sublingual TID PRN 08/31/24 Unknown History sublingual tablet dyspepsia promethazine 12.5 mg tablet 12.5 mg PO TID PRN nausea and 08/31/24 Unknown History vomiting Allergy/AdvReac Type Severity Reaction Status Date / Time dicyclomine Allergy Mild palpitation Verified 08/31/24 13:41 s aspirin AdvReac Severe Bleeding Verified 08/31/24 13:41 ibuprofen AdvReac Severe Bleeding Verified 08/31/24 13:41 naproxen AdvReac Severe Bleeding Verified 08/31/24 13:41 Family History no significant family his Surgical History Hx of section Hx of tonsillectomy Social History Smoking Status: Former smoker ROS ROS ED Review of Systems ROS Unobtainable: other Constitutional Constitutional ED: Reports lethargy; Denies chills, fever(s), sweats or weight loss Eyes Eyes: Denies blurry vision, change in vision or diplopia ENT ENT ED: Denies rhinorrhea or sore throat Cardiovascular Cardiovascular: Denies chest pain, orthopnea or racing heartbeat Respiratory/Chest Respiratory/Chest: Denies cough, dyspnea, dyspnea on exertion, orthopnea or sputum Gastrointestinal Gastrointestinal: Reports abdominal pain and other Details: Bright red blood per rectum ; Denies diarrhea, nausea or vomiting Genitourinary Genitourinary ED: Denies dysuria, hematuria or urinary frequency Musculoskeletal Musculoskeletal: Denies arthralgias, back pain, myalgias or neck pain Integumentary Denies abscess, Abrasions or rash Neurologic Neurologic: Denies headache(s) or weakness Psychiatric Psychiatric: Denies anxiety, depression or suicidal thoughts Endocrine Endocrinology: Denies polydipsia, polyphagia or polyuria Hematologic/Lymphatic Hematologic/Lymphatic: Denies easy bleeding, easy bruising or lymphadenopathy Allergic/Immunologic Allergic/Immunologic ED: Denies mouth swelling, tongue swelling or urticaria EXAM Physical Exam Const Vital Signs: 08/31/24 13:36 08/31/24 15:35 08/31/24 16:36 Temperature 98.4 F Temperature Source Oral Pulse Rate 109 H 89 Pulse Rate [Lying] 87 Pulse Rate [Sitting (for 1 minute prior to obtaining)] 90 Pulse Rate [Standing (for 1 minute prior to obtaining)] 106 H Respiratory Rate 15 Blood Pressure 116/79 103/63 Blood Pressure [Lying] 103/63 Blood Pressure [Sitting (for 1 minute prior to obtaining)] 110/74 Blood Pressure [Standing (for 1 minute prior to obtaining)] 107/68 Blood Pressure Mean 91 76 Blood Pressure Mean [Lying] 76 Blood Pressure Mean [Sitting (for 1 minute prior to obtaining)] 86 Blood Pressure Mean [Standing (for 1 minute prior to obtaining)] 81 Pulse Ox 97 98 Oxygen Delivery Method Room Air 08/31/24 17:00 08/31/24 17:03 Temperature 98.7 F Temperature Source Oral Pulse Rate 89 Pulse Rate [Lying] Pulse Rate [Sitting (for 1 minute prior to obtaining)] Pulse Rate [Standing (for 1 minute prior to obtaining)] Respiratory Rate 16 Blood Pressure 127/79 H 127/79 H Blood Pressure [Lying] Blood Pressure [Sitting (for 1 minute prior to obtaining)] Blood Pressure [Standing (for 1 minute prior to obtaining)] Blood Pressure Mean 95 95 Blood Pressure Mean [Lying] Blood Pressure Mean [Sitting (for 1 minute prior to obtaining)] Blood Pressure Mean [Standing (for 1 minute prior to obtaining)] Pulse Ox 95 Oxygen Delivery Method Room Air Positive well nourished and well developed General Appearance ED: well developed and NAD HEENT Reports TM's clear and moist mucous membranes normocephalic and atraumatic; Negative for trauma or tenderness Tympanic Membrane ED: Yes TM's clear Eyes PERRL and EOMs intact bilaterally General Eye ED: Negative for pale conjunctiva or scleral icterus Neck no lymphadenopathy, supple and no JVD General: Negative for tenderness Chest Wall inspection of chest normal and palpation of chest normal Chest: Negative for tenderness Resp normal respiratory effort and clear to auscultation bilaterally Effort and Inspection: Negative for respiratory distress or pain with movement Auscultation: Negative for rhonchi, wheezes or diminished lung sounds Cardio regular rate, regular rhythm, S1 normal heart sound, S2 normal heart sound and no murmurs Peripheral Pulses: pulses 2+ throughout GI normal to inspection, nondistended, normoactive bowel sounds, soft to palpation, non-distended and no masses GI Narrative: Mild diffuse tenderness. There is no rebound, rigidity, peritoneal signs. No mass palpated. Rectal exam-patient refused rectal exam and understands I cannot rule out fissure or hemorrhoid or rectal masses. Patient is adamant that there is no such issue going on in does not want to have a rectal exam performed. Back/Spine no CVA tenderness and no thoracic nor lumbar tenderness Extremity normal to inspection General Extremety ED: Negative for edema General Extremity: Negative for edema Neuro oriented x3, CN's II-XII intact bilaterally, no sensory deficits noted and gait normal Sensorium / Orientation: awake, alert, oriented to person, oriented to place and oriented to time Motor Exam: strength 5/5 throughout and strength abnormal Psych mental status grossly normal Skin no rashes or lesions noted and no wounds MDM MDM MDM Narrative Medical decision making narrative: Patient presents with rectal bleeding and history of von Willebrand type I. Clinically looks well. Patient refused rectal exam. Understands I cannot rule out fissure or hemorrhoid or rectal mass or other process. I will establish. CBC with differential obtained showed white count of 10.0 with hemoglobin 15.7 and platelet count of 260. Chemistries unremarkable. Lactate was less than 1. LFTs were normal. hCG was negative. CT scan of the abdomen pelvis obtained showed descending and rectosigmoid colon wall thickening with mild submucosal hyperemia and mesenteric soft tissue stranding concerning for acute infectious colitis. Patient was medicated with morphine and Zofran initially. Discussed case with GI Dr. Mcmillan. Will start patient on Augmentin. Will also write a prescription for a few Xanax as she states sometimes this helps her more than narcotic pain medication for the pain she will follow-up with Dr. Mcmillan's office. Lab Data Attestation: I reviewed the patient's lab results. Labs: Laboratory Results - last 24 hr 08/31/24 08/31/24 14:05 17:00 WBC 10.0 RBC 5.16 Hgb 15.7 H Hct 44.4 MCV 86.0 MCH 30.4 MCHC 35.4 RDW Std Deviation 37.3 RDW Coeff of Johnny 11.8 Plt Count 260 MPV 10.5 Immature Gran % (Auto) 0.300 Neut % (Auto) 56.8 Lymph % (Auto) 31.1 [place] % (Auto) 8.3 Eos % (Auto) 2.8 Baso % (Auto) 0.7 Absolute Neuts (auto) 5.7 Absolute Lymphs (auto) 3.11 Nucleated RBC % 0 Sodium 138 Potassium 3.4 Chloride 101 Carbon Dioxide 26.4 Anion Gap 11 BUN 7 Creatinine 0.72 Estim Creat Clear Calc 113.18 Est GFR (MDRD) Non-Af 117 BUN/Creatinine Ratio 9.1 L Glucose 80 Lactic Acid < 1.0 Calcium 9.2 Total Bilirubin 0.59 AST 24 ALT 18 Alkaline Phosphatase 68 Total Protein 7.9 Albumin 4.6 Globulin 3.3 Albumin/Globulin Ratio 1.4 Lipase 253 H Serum , Qual NEGATIVE Radiography Diagnostic Testing: Clinical Impression(s) from Imaging Studies Abdomen/Pelvis CT 08/31/24 15:58 IMPRESSION: Descending and rectosigmoid colon, wall thickening, mild submucosal hyperemia and mesenteric soft tissue stranding, concerning for acute infectious colitis. [facility] T[facility] Chief Complaint: GI Bleed ED Provider: Tom Garcia Dx/Rx/DC Orders Clinical Impression: Colitis, Acute lower GI bleeding Instructions: ED Understanding Colitis, ED Lower GI Bleeding (Stable) Prescriptions: New alprazolam [Xanax] 0.5 mg tablet 0.5 mg PO BID PRN (Reason: anxiety) Qty: 10 0RF amoxicillin-pot clavulanate 875-125 mg tablet 1 tab PO BID Qty: 20 0RF No Action ondansetron 8 mg tablet,disintegrating 8 mg PO Q12H PRN (Reason: nausea and vomiting) alprazolam [Xanax] 0.5 mg tablet 0.5 mg PO TID PRN (Reason: abdominal pain) 3 Days Qty: 12 0RF hyoscyamine sulfate 0.125 mg tablet, sublingual 0.125 - 0.25 mg sublingual TID PRN (Reason: dyspepsia) escitalopram oxalate 20 mg tablet 20 mg PO QHS promethazine 12.5 mg tablet 12.5 mg PO TID PRN (Reason: nausea and vomiting) Primary Care Provider: Marlene Lara Referrals: Jagjit Mcmillan DO [Med Staff - Active Staff] - 3-5 Days Marlene Lara MD [Primary Care Provider] - Print Language: Armenian Disposition Disposition: Home, Self Care
--- NOTE | 2024-08-31 15:58 | CT_ITS ---
PROCEDURE: ABDOMEN/PELVIS W IV CONT ONLY 08/31/2024 REASON FOR EXAM: ABDOMINAL PAIN, RECTAL BLEEDING TECHNIQUE: Abdomen and pelvis CT with intravenous contrast. Coronal and Sagittal reconstruction series were provided. PATIENT PREPARATION: Per protocol ORAL CONTRAST TYPE: None. AMOUNT: mL CONTRAST: Omnipaque 350 VOLUME: 100 mL Not Provided Gauge IV One or more dose reduction techniques were used (e.g., Automated exposure control, adjustment of the mA and/or kV according to patient size, use of iterative reconstruction technique. COMPARISON: CT abdomen and pelvis 05/31/2019 FINDINGS: Lung bases: Unremarkable Liver: Normal size. No mass. Gallbladder: Surgically absent. No ductal dilation. Spleen: Normal size. Pancreas: Normal size without evidence of mass surrounding inflammation or ductal dilation. Adrenals: Unremarkable. Kidneys: Normal renal sizes. No hydronephrosis. Bladder: Urinary bladder is unremarkable. Reproductive Organs: IUD is noted a normal position. Bowel: Stomach is unremarkable. No bowel dilation. Descending and rectosigmoid wall thickening with mild submucosal hyperemia and surrounding mesenteric soft tissue stranding. Findings concerning for infectious colitis.. Appendix: Normal appendix. Lymph nodes: No suspicious lymph node enlargement. Vasculature: The abdominal aorta and IVC are normal. Peritoneum / Retroperitoneum: No ascites. No pneumoperitoneum. Bones: Unremarkable. CT/Abdomen/Pelvis W IV Cont ONLY IMPRESSION: Descending and rectosigmoid colon, wall thickening, mild submucosal hyperemia a nd mesenteric soft tissue stranding, concerning for acute infectious colitis. Reading Location: [facility]
[2024-08-31] MEDS: Ondansetron 4 MG/2 ML Vial IV (16:30)
[2024-08-31] MEDS: Morphine 4 MG/ML Syringe IV (16:32)
[2024-08-31 16:36] VITALS: BP 103/63; BP 107/68; BP 110/74; PULSE 106; PULSE 87; PULSE 90
[2024-08-31 17:00] VITALS: BP 127/79
[2024-08-31 17:03] VITALS: BP 127/79; PULSE 89; RESP 16; TEMP 37.1; O2SAT 95
[2024-08-31 17:50] LABS: Lactic Acid < 1.0 mmol/L (0.0-2.0)
[2024-08-31] MEDS: Amox/Clavulanate 875 MG Tablet PO (18:47)
[2024-08-31] MEDS: ALPRAZolam 0.5 MG Tablet PO (18:48)
[2024-08-31 18:49] VITALS: BP 117/73; PULSE 84; RESP 16; TEMP 37.1; O2SAT 97
== END 2024-08-31 18:54 | disposition home or self-care (01) ==
PROVIDERS: Emergency Provider Emergency Medicine; PCP Family Medicine; Referring Provider Emergency Medicine; Visit Provider Emergency Medicine
DX: K52.9 Noninfective gastroenteritis and colitis, unspecified (principal); D68.01 Von Willebrand disease, type 1; Z87.891 Personal history of nicotine dependence; R51.9 Headache, unspecified
CPT/HCPCS: 74177; 80053; 83605; 83690; 84703; 85025; 96374; 99284; Q9967; A4216; J2405

== ENCOUNTER 2024-10-23 06:48 | Day surgery (SDC) | payer OTHER, SELFPAY ==
--- NOTE | 2024-10-20 13:55 | PAT.ANE_ITS ---
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 When Was Last Pacemaker Check QUESTION #4 FULL TEXT: You/Your Family Experience fever (hyperthermia) with Anesthesia Last Oral Intake Last Oral intake: Last Oral Intake NPO since Meds taken in AM with sips of water? Meds patient instructed to take am of surgery PONV PONV - call centre supervisor: PONV - call centre supervisor Female Yes 10/20/24 10:36 HX of Motion Sickness Yes 10/20/24 10:36 HX of N/V After Surgery Yes 10/20/24 10:36 Non-Smoker Yes 10/20/24 10:36 Duration of Surgery greater No 10/20/24 10:36 than 60 minutes Number of Risk Factors 4 10/20/24 10:36 PONV Score Severe Risk 10/20/24 10:36 Height & Weight Height & Weight: Anesthesia: Height & Weight Height 5 ft 2 in 08/31/24 13:36 Respiratory Assessment Respiratory Assessment - call centre supervisor: Respiratory Tract Infection Hx - call centre supervisor Hx Respiratory Tract Infection No 10/20/24 10:36 STOP Sleep Apnea STOP Sleep Apnea - call centre supervisor: STOP Sleep Apnea - call centre supervisor Hx Hypertension No 10/20/24 10:36 Hx Sleep Apnea No 10/20/24 10:36 CPAP BIPAP Do you snore loudly (louder No 10/20/24 10:36 than talking or can be heard Do you often feel tired/ Yes 10/20/24 10:36 fatigued/ sleepy during daytime? Has anyone observed you stop No 10/20/24 10:36 breathing during sleep? STOP Results Negative 10/20/24 10:36 QUESTION #5 FULL TEXT : Do you snore loudly (louder than talking or can be heard through closed doors)? 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 confused, unrespo /Reproduction History /Reproductive History - call centre supervisor: /Reproductive Hx- call centre supervisor Hx Now No 10/20/24 10:36 Gestational Age (in weeks): EDC: Hx Hx Para Hx Section SAB No 10/20/24 10:36 Active Medications Active Medications: Current Medications Generic Name Dose Route Start Last Admin Trade Name Freq PRN Reason Stop Dose Admin Desmopressin Acetate 20 mcg 10/23/24 07:00 Desmopressin Acetate 40 Mcg/10 Ml Vial IV 10/23/24 07:01 PREOP ONE Tranexamic Acid 2,000 mg/ 120 mls @ 280 mls/hr 10/23/24 07:00 Sodium Chloride IV X1 MARYLU PFSH Medical History (Updated 10/20/24 @ 10:51 by Alyx Membreno) PTSD (post-traumatic stress disorder) Anxiety Marijuana use Anemia Dietary restriction History of GI bleed History of diverticulitis Gastric reflux Former smoker Tachycardia Vesico-ureteral reflux IBS (irritable bowel syndrome) Von Willebrand disease Gastroenteritis Home Medications ?Medication ?Instructions ?Recorded ?Last Taken ?Type ondansetron 8 mg disintegrating 8 mg PO Q12H PRN nause a and 03/14/23 Unknown History tablet vomiting escitalopram oxalate 20 mg tablet 20 mg PO QHS 5 08/30/24 History hyoscyamine sulfate 0.125 mg 0.125 - 0.25 mg sublingua l TID PRN 08/31/24 Unknown History sublingual tablet dyspepsia promethazine 12.5 mg tablet 12.5 mg PO TID PRN nausea and 08/31/24 Unknown History vomiting alprazolam 0.5 mg tablet (Xanax) 0.5 mg PO ONCE PRN an xiety 09/04/24 Unknown History aminocaproic acid 250 mg/mL (25 %) 5,000 mg PO Q6H PRN PRN FOR 10/20/24 Unknown History oral solution BLEEDING Allergy/AdvReac Type Severity Reaction Status Date / Time acetaminophen (From Vicodin) Allergy Intermediate Hives Verified 10/20/24 10:33 hydrocodone (From Vicodin) Allergy Intermediate Hives Verified 10/20/24 10:33 dicyclomine Allergy Mild palpitation Verified 10/20/24 10:33 s aspirin AdvReac Severe Bleeding Verified 10/20/24 10:33 ibuprofen AdvReac Severe Bleeding Verified 10/20/24 10:33 naproxen AdvReac Severe Bleeding Verified 10/20/24 10:33 Surgical History (Updated 10/20/24 @ 10:51 by Alyx Membreno) History of esophagogastroduodenoscopy (EGD) Hx of nevus excision Hx laparoscopic cholecystectomy H/O adenoidectomy Hx of section Hx of tonsillectomy Social History Smoking Status: Former smoker Audit: Pertinent Findings Pertinent Findings Additional pertinent findings: Patient has von Willebrand's disease. Dr. Mcmillan has ordered transischemic acid and desmopressin to be given IV preop. Recommendation Anesthesia Recommendation Anesthesia recommendation: OPTIMIZED for anesthesia
--- NOTE | 2024-10-20 13:55 | PAT.ANE_ITS ---
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 When Was Last Pacemaker Check QUESTION #4 FULL TEXT: You/Your Family Experience fever (hyperthermia) with Anesthesia Last Oral Intake Last Oral intake: Last Oral Intake NPO since Meds taken in AM with sips of water? Meds patient instructed to take am of surgery PONV PONV - autocad technician: PONV - autocad technician Female Yes 10/20/24 10:36 HX of Motion Sickness Yes 10/20/24 10:36 HX of N/V After Surgery Yes 10/20/24 10:36 Non-Smoker Yes 10/20/24 10:36 Duration of Surgery greater No 10/20/24 10:36 than 60 minutes Number of Risk Factors 4 10/20/24 10:36 PONV Score Severe Risk 10/20/24 10:36 Height & Weight Height & Weight: Anesthesia: Height & Weight Height 5 ft 2 in 08/31/24 13:36 Respiratory Assessment Respiratory Assessment - autocad technician: Respiratory Tract Infection Hx - autocad technician Hx Respiratory Tract Infection No 10/20/24 10:36 STOP Sleep Apnea STOP Sleep Apnea - autocad technician: STOP Sleep Apnea - autocad technician Hx Hypertension No 10/20/24 10:36 Hx Sleep Apnea No 10/20/24 10:36 CPAP BIPAP Do you snore loudly (louder No 10/20/24 10:36 than talking or can be heard Do you often feel tired/ Yes 10/20/24 10:36 fatigued/ sleepy during daytime? Has anyone observed you stop No 10/20/24 10:36 breathing during sleep? STOP Results Negative 10/20/24 10:36 QUESTION #5 FULL TEXT : Do you snore loudly (louder than talking or can be heard through closed doors)? 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 confused, unrespo /Reproduction History /Reproductive History - autocad technician: /Reproductive Hx- autocad technician Hx Now No 10/20/24 10:36 Gestational Age (in weeks): EDC: Hx Hx Para Hx Section SAB No 10/20/24 10:36 Active Medications Active Medications: Current Medications Generic Name Dose Route Start Last Admin Trade Name Freq PRN Reason Stop Dose Admin Desmopressin Acetate 20 mcg 10/23/24 07:00 Desmopressin Acetate 40 Mcg/10 Ml Vial IV 10/23/24 07:01 PREOP ONE Tranexamic Acid 2,000 mg/ 120 mls @ 280 mls/hr 10/23/24 07:00 Sodium Chloride IV X1 MARYLU PFSH Medical History (Updated 10/20/24 @ 10:51 by Alyx Membreno) PTSD (post-traumatic stress disorder) Anxiety Marijuana use Anemia Dietary restriction History of GI bleed History of diverticulitis Gastric reflux Former smoker Tachycardia Vesico-ureteral reflux IBS (irritable bowel syndrome) Von Willebrand disease Gastroenteritis Home Medications ?Medication ?Instructions ?Recorded ?Last Taken ?Type ondansetron 8 mg disintegrating 8 mg PO Q12H PRN nause a and 03/14/23 Unknown History tablet vomiting escitalopram oxalate 20 mg tablet 20 mg PO QHS 5 08/30/24 History hyoscyamine sulfate 0.125 mg 0.125 - 0.25 mg sublingua l TID PRN 08/31/24 Unknown History sublingual tablet dyspepsia promethazine 12.5 mg tablet 12.5 mg PO TID PRN nausea and 08/31/24 Unknown History vomiting alprazolam 0.5 mg tablet (Xanax) 0.5 mg PO ONCE PRN an xiety 09/04/24 Unknown History aminocaproic acid 250 mg/mL (25 %) 5,000 mg PO Q6H PRN PRN FOR 10/20/24 Unknown History oral solution BLEEDING Allergy/AdvReac Type Severity Reaction Status Date / Time acetaminophen (From Vicodin) Allergy Intermediate Hives Verified 10/20/24 10:33 hydrocodone (From Vicodin) Allergy Intermediate Hives Verified 10/20/24 10:33 dicyclomine Allergy Mild palpitation Verified 10/20/24 10:33 s aspirin AdvReac Severe Bleeding Verified 10/20/24 10:33 ibuprofen AdvReac Severe Bleeding Verified 10/20/24 10:33 naproxen AdvReac Severe Bleeding Verified 10/20/24 10:33 Surgical History (Updated 10/20/24 @ 10:51 by Alyx Membreno) History of esophagogastroduodenoscopy (EGD) Hx of nevus excision Hx laparoscopic cholecystectomy H/O adenoidectomy Hx of section Hx of tonsillectomy Social History Smoking Status: Former smoker Audit: Pertinent Findings Pertinent Findings Additional pertinent findings: Patient has von Willebrand's disease. Dr. Mcmillan has ordered transischemic acid and desmopressin to be given IV preop. Recommendation Anesthesia Recommendation Anesthesia recommendation: OPTIMIZED for anesthesia
[2024-10-23] VITALS (8 sets, daily range): BP systolic 84–104; BP diastolic 56–70; PULSE 86–94; RESP 16; TEMP 36.3–37.6; O2SAT 97–100; BMI 32.2
--- OUTSIDE RECORDS SUMMARY | 2024-10-23 06:52 | XMS RPT_ITS | CCD ---
Author Organization [facility] CliniSyme Care Team Providers Care Tooler Name Role Phone REHMUS, MIKAYLA H Unavailable Unavailable IMCA Unavailable Unavailable LINNEADACIA M Unavailable Unavailable [facility] Unavailable Unavailable [facility] Unavailable Unavailable LINNEA, DACIA M Unavailable Unavailable [facility] Unavailable Unavailable DEPERRO, GORDON J Unavailable Unavailable REHMUS, MIKAYLA H Unavailable Unavailable REHMUS, MIKAYLA H Unavailable Unavailable DEPERRO, GORDON J Unavailable Unavailable Deperro, Gordon Unavailable Unavailable Deperro, Gordon Unavailable Unavailable Fannie Ordonez Unavailable Unavailable Deperro, Gordon Unavailable Unavailable Deperro, Gordon Unavailable Unavailable Ramses Motta Unavailable Unavailable Deperro, Gordon Unavailable Unavailable Deperro, Gordon Unavailable Unavailable Rowdy Redding Unavailable Unavailable Nur, Gordon Fernandez Unavailable [phone] Gordon Nur Primary Care Provider [phone] Gordon Nur Sr. Unavailable uNnu Cortez MD Primary Care Provider Jeff Purvis MD Unavailable Nunu Cortez MD Primary Care Provider Jeff Purvis MD Unavailable Nunu Cortez MD Primary Care Provider NO PRIMARY CARE, Primary Care Unavailable JARVIS CASAS Attending Unavailable REFERRED, SELF Referring Unavailable Bakari Silva MD Unavailable Jeff Purvis MD Unavailable Bakari Silva MD Unavailable Melvin Posey Unavailable [phone] Nunu Cortez MD Primary Care Provider MELVIN POSEY Attending Unavailable MELVIN POSEY Admitting Unavailable CORTEZ, NUNU Primary Care Unavailable CORTEZ, NUNU Primary Care Unavailable FORESTER, MARIO Attending Unavailable FORESTER, MARIO Referring Unavailable CORTEZ, NUNU Primary Care Unavailable FORESTER, MARIO Attending Unavailable FORESTER, MARIO Referring Unavailable CORTEZ, NUNU Primary Care Unavailable CORTEZ, NUNU Primary Care Unavailable BJ, REBECCA Attending Unavailable COCIERSON Arshad Attending Unavailable BJ, REBECCA Referring Unavailable CORTEZ, NUNU Primary Care Unavailable MELVIN POSEY Attending Unavailable JOSE JACINTO Referring Unavailable CORTEZ, NUNU Primary Care Unavailable MELVIN POSEY Attending Unavailable CORTEZ, NUNU Primary Care Unavailable BJ, REBECCA Attending Unavailable BJ, REBECCA Referring Unavailable CORTEZ, NUNU Primary Care Unavailable COCIERSON Arshad Attending Unavailable COCIERU, SON Referring Unavailable CORTEZ, NUNU Primary Care Unavailable BAKARI SILVA Referring Unavailable CORTEZ, NUNU N Primary Care Unavailable DMITRY GALVAN Referring Unavailable CORTEZ, NUNU N Primary Care Unavailable CORTEZ, NUNU N Primary Care Unavailable Cortez Dr. AL Nunu Primary Care Provider Dr. Alonzo Argueta DO Attending Provider Dr. Alonzo Argueta DO Emergency Provider Dr. Tom Garcia DO Referring Provider [phone] Dr. Tom Garcia DO Emergency Provider Tom Garcia Attending Unavailable UngTom bueno Referring Unavailable Cortez, Nunu Primary Care Unavailable OOTDR SERGIO Attending Unavailable OOTDR SERGIO Referring Unavailable Cortez, Nunu Primary Care Unavailable Mayra Reno Attending Unavailable Cortez, Nunu Primary Care Unavailable Cortez, Nunu Referring Unavailable RowdyMayra casey Attending Unavailable Cortez, Nunu Referring Unavailable Cortez, Nunu Primary Care Unavailable Hipolito, Jagjit Attending Unavailable Cortez, Nunu Referring Unavailable Cortez, Nunu Primary Care Unavailable Alonzo Argueta Attending Unavailable Cortez, Nunu Primary Care Unavailable Allergies Allergy Classification Reported Allergen(s) Allergy Type Date of Onset Reaction(s) Facility (20 sources) acetaminophen / HYDROcodone; Translations: [HYDROCODONE-ACET AMINOPHEN] Drug Allergy 3 Unknown, Itching [facility] (20 sources) aspirin; Translations: [ASPIRIN] Drug Allergy 2 Other: See Comments, Other [facility] (20 sources) NSAIDs; Translations: [NSAIDS (NON-STEROIDAL ANTI-INFLAMMATORY DRUG)] Propensity to adverse reactions (disorder) 3 Other: See Comments [facility] (20 sources) Ibuprofen; Translations: [IBUPROFEN] Drug Allergy 2 Other, Unknown, Other: See Comments [facility] (20 sources) Non-steroidal anti-inflammatory agent; Translations: [NSAIDS] Drug Allergy 3 Other [facility] (20 sources) Aluminum aspirin; Translations: [ALUMINUM ASPIRIN] Drug Allergy 2 Other: See Comments [facility] (20 sources) Dicyclomine; Translations: [DICYCLOMINE] Drug Allergy 4 Palpitations, Other: See Comments [facility] (20 sources) Naproxen Drug Allergy [address] [facility] (7 sources) HYDROcodone Drug Allergy 4 Itching [facility] (1 source) Acetaminophen Drug Allergy 5 [facility] (1 source) Dicyclomine Drug Allergy 5 [facility] (1 source) HYDROcodone Drug Allergy 5 [facility] (1 source) Ibuprofen Drug Allergy 5 [facility] (1 source) Naproxen Drug Allergy 5 [facility] Medications Current Medications Medication Drug Class(es) Dates Sig (Normalized) Sig (Original) 6-aminocaproic acid 250 mg/ml oral solution (20 sources) Antifibrinolytic Agent Start: 09-26-2024 take 5 g by mouth every six hours as needed aminocaproic acid (AMICAR) 250 mg/mL (25 %) solution Take 20 mL by mouth every 6 hours as needed (bleeding). 473 mL 5 09/26/2024 Active Start: 10-08-2022 End: 09-26-2024 take 5 g by mouth every six hours as needed aminocaproic acid (AMICAR) 250 mg/mL (25 %) solution Take 20 mL by mouth every 6 hours as needed (bleeding). 473 mL 1 06/22/2024 09/26/2024 Discontinued Start: 09-22-2022 End: 09-29-2022 take 20 mL by mouth every six hours as needed aminocaproic acid (AMICAR) 250 mg/mL (25 %) solution Indications: Von Willebrand disease (HCC) Take 20 mL by mouth every 6 hours as needed for up to 7 days. 560 mL 0 09/22/2022 09/29/2022 Active Start: 02-22-2018 End: 09-22-2022 take 20 mL by mouth every hour aminocaproic acid (AMIC AR) 250 mg/mL (25 %) solution Indications: Von Willebrand disease (HCC) Take 20 mL by mouth every hour for 8 doses. 160 mL 0 02/22/2018 09/22/2022 Discontinued Comment on above: Take 20 mL by mouth every hour for 8 doses. Take 20 mL by mouth every 6 hours as needed for up to 7 days. Take 20 mL by mouth every 6 hours as needed (bleeding). [id number] 200 actuat albuterol 0.09 mg/actuat metered dose inhaler (5 sources) beta2-Adrenergic Agonist Start: 04-10-20 take 2 puff(s) by inhalation every six hours as needed for wheezing albuterol HFA (PROVENTIL HFA, VENTOLIN HFA) 90 mcg/actuation inhaler Inhale 2 Puffs as instructed every 6 hours as needed for wheezing/shortness of breath. 8 g 04/10/2024 Active ALPRAZolam 0.5 mg oral tablet (20 sources) Benzodiazepine Start: 09-01-19 take 1 tablet by mouth twice daily as needed for anxiety Alprazolam (Xanax) 0.5 mg tablet Active 0.5 mg PO TWICE A DAY as needed for anxiety August 31, 2024 12:00am Start: 09-03-2023 End: 09-04-2023 take 1 tablet by mouth every twenty-four hours as needed for anxiety 0.25 mg, Oral, Daily PRN, anxiety, Starting on Wed09/03/23 at 1403, Phase II/On Unit Start: 07-01-2023 take 1 tablet by [facility] once daily as needed for anxiety Xanax 0.25 MG tablet 1 tablet Orally daily prn anxiety for 30 days 07/01/2023 Active Start: 03-14-2023 take 1 tablet by [facility] th three times daily as needed for pain Alprazolam (Xanax) 0.5 mg tablet Active 0.5 mg PO THREE TIMES A DAY as needed for abdominal pain 12 March 14, 2023 1:00am aluminum chloride 200 mg/ml topical solution (20 sources) Start: 02-16-2022 aluminum chloride (DRYSOL) 20 % external solution 02/16/2022 Active amoxicillin 875 mg / clavulanate 125 mg oral tablet (1 source) Penicillin-class Antibacterial Start: 08-31-2024 Amoxicillin-Pot Clavulanate 875-125 mg tablet Active 1 {tbl} PO TWICE A DAY August 31, 2024 12:00am doxycycline hyclate 100 mg oral capsule (6 sources) Tetracycline-class Drug Start: 04-05-2024 take 1 capsule by mouth every twelve hours doxycycline hyclate (VIBRAMYCIN) 100 mg capsule Take 1 capsule by mouth every 12 hours. 04/05/2024 Active escitalopram 20 mg oral tablet (7 sources) Serotonin Reuptake Inhibitor Start: 08-31-2024 take 1 tablet by mouth at bedtime Escitalopram Oxalate 20 mg tablet Active 20 mg PO AT BEDTIME August 31, 2024 12:00am Start: 03-15-2024 take 1 tablet by mouth once es citalopram oxalate (LEXAPRO) 20 mg tablet Take 1 tablet by mouth every afternoon. 03/15/2024 Active hyoscyamine sulfate 0.125 mg sublingual tablet (20 sources) Start: 08-31-2024 take 0.125-0.25 mg under the tongue three times daily as needed Hyoscyamine Sulfate 0.125 mg tablet, sublingual Active 0.125 - 0.25 mg SL THREE TIMES A DAY as needed for dyspepsia August 31, 2024 12:00am Start: 06-09-2022 take 1 tablet under the tongue every four hours as needed hyoscyamine sublingual (LEVSIN/SL) 0.125 mg Indications: Generalized abdominal pain , Diarrhea, unspecified type Dissolve 1 tablet under the tongue every 4 hours as needed. 60 tablet 2 06/09/2022 Active Start: 06-09-2022 End: 07-05-2023 hyoscyamine (Levsin) 0.125 M G SL tablet DISSOLVE 1 TABLET UNDER THE TONGUE EVERY 4 HOURS NEEDED. 0 06/09/2022 07/05/2023 Discontinued (Therapy completed) Comment on above: Dissolve 1 tablet un keenan the tongue every 4 hours as needed. levonorgestrel 0.481812 mg/hr intrauterine system (3 sources) Progestin, Progestin-containing Intrauterine Device levonorgestrel (Maribell na, 52 MG,) 20 MCG/DAY IUD 1 each by IntraUTERine route Once. Active Multiple Vitamin (multivitamin) capsule (20 sources) take 1 capsule by mouth once daily Multiple Vitamin (multivitamin) capsule Take 1 capsule by mouth daily. Active take 1 capsule by mouth once dick ly Multiple Vitamin (multivitamin) capsule Take 1 capsule by mouth daily. 0 Active omeprazole 20 mg delayed release oral capsule (14 sources) Proton Pump Inhibitor Start: 10-01-2022 take 1 capsule by mouth once daily omeprazole (PRILOSEC) 20 mg capsule Indications: Nausea , Bilateral upper abdominal pain , Bilious vomiting with nausea Take 1 capsule by mouth once daily. 30 capsule 2 10/01/2022 Active Comment on above: Take 1 capsule by [facility] once daily. promethazine hydrochloride 12.5 mg oral tablet (20 sources) Phenothiazine Start: 08-31-2024 take 1 tablet by mouth three times daily as needed for nausea and vomiting Promethazine 12.5 mg tablet Active 12.5 mg PO THREE TIMES A DAY as needed for nausea and vomiting August 31, 2024 12:00am Start: 09-03-2023 End: 09-04-2023 take 1 tablet by mouth every six hours as needed for nausea and vomiting promethazine (Phenergan) tablet 12.5 mg Start: 07-06-2022 End: 07-06-2022 promethazine (Phenergan) inj ection 25 mg Start: 07-06-2022 End: 07-09-2022 take 25 mg rectal route every six hours as needed for nausea and vomiting promethazine (Phenergan) 25 MG suppository Insert 1 suppository (25 mg) into the rectum every 6 hours as needed for nausea or vomiting for up to 3 days. 12 suppository 0 07/06/2022 07/09/2022 Active Start: 06-09-2022 take 1 tablet by [facility] every six hours as needed promethazine (PHENERGAN) 12.5 mg tablet Indications: Bilious vomiting with nausea Take 1 tablet by mouth every 6 hours as needed. 60 tablet 1 06/09/2022 Active Comment on above: Take 1 tablet by [facility] every 6 hours as needed. tranexamic acid 650 mg oral tablet (13 sources) Antifibrinolytic Agent Start: 09-23-19 End: 09-30-19 take 2 tablets by mouth every eight hours as needed, then take 2 tablets by mouth every eight hours as needed tranexamic acid (LYSTEDA) 650 mg tablet Take 2 tablets by mouth every 8 hours for 3 days, THEN 2 tablets every 8 hours as needed (Visible GI bleeding) for up to 4 days. 13 tablet 09/22/2022 Active Comment on above: Take 2 tablets by mo [facility] every 8 hours for 3 days, THEN 2 tablets every 8 hours as needed (Visible GI bleeding) for up to 4 days. 24 hr venlafaxine 150 mg extended release oral capsule (20 sources) Serotonin and Norepinephrine Reuptake Inhibitor Start: 05-08-19 venlafaxine ER (EFFEXOR XR) 150 mg 24 hr capsule 05/08/2023 Active Start: 05-08-2023 End: 09-04-2023 venlafaxine XR (Effexor XR) 150 MG 24 hr capsule Nightly. 05/08/2023 Active Start: 03-14-2023 End: 05-31-2024 take 1 capsule by mouth once daily Venlafaxine 37.5 mg capsule,extended release 24hr Discontinued 37.5 mg PO DAILY March 14, 2023 1:00am May 31, 2024 3:22pm take 1 capsule by mo [facility] every twenty-four hours venlafaxine ER (EFFEXOR XR) 37.5 mg 24 hr capsule Take 37.5 mg by mouth. Active Comment on above: Take 37.5 mg by mout h. Completed/Discontinued Medications Medication Drug Class(es) Dates Sig (Normalized) Sig (Original) acetaminophen 500 mg oral tablet (20 sources) Start: 09-03-2023 End: 09-04-2023 take 1 tablet by mouth every eight hours as needed for pain 1,000 mg, Oral, Every 8 hours PRN, mild pain (1-3), Starting on Wed09/03/23 at 1403, Phase II/On Unit, Maximum dose of acetaminophen is 4000 mg from all sources in 24 hours. acetaminophen (T YLENOL) 325 mg tablet Take by mouth as directed. Active Comment on above: Take by mouth as dir ected. acetaminophen 300 mg / codeine phosphate 30 mg oral tablet (2 sources) Opioid Agonist Start: End: take 1 tablet by mouth every four hours as needed acetaminophen-codeine (TYLENOL-COD #3) 300-30 mg per tablet Take 1 tablet by mouth every 4 hours as needed. 5 tablet 0 04/05/2017 06/02/2022 Discontinued Comment on above: Take 1 tablet by [facility] every 4 hours as needed. amoxicillin 500 mg oral capsule (2 sources) Penicillin-class Antibacterial End: take 1 capsule by mouth twice daily amoxicillin (POLYMOX, AMOXIL) 500 mg capsule Take 500 mg by mouth twice daily. 0 06/02/2022 Discontinued Comment on above: Take 500 mg by mouth twice daily. calcium chloride 0.0014 meq/ml / potassium chloride 0.004 meq/ml / sodium chloride 0.103 meq/ml / sodium lactate 0.028 meq/ml injectable solution (2 sources) Start: End: lactated Ringer's (LR) infusion cyclobenzaprine hydrochloride 10 mg oral tablet (2 sources) Muscle Relaxant Start: 013 End: take 5 mg by mouth every eight hours as needed cyclobenzaprine 10 mg tablet Take 0.5 tablets by mouth every 8 hours as needed for Muscle Spasm (or pain). 10 tablet 0 12/05/2012 06/02/2022 Discontinued Comment on above: Take 0.5 tablets by mouth every 8 hours as needed for Muscle Spasm (or pain). dicyclomine hydrochloride 20 mg oral tablet (20 sources) Anticholinergic Start: End: take 1 tablet by mouth three times daily as needed for pain Dicyclomine 20 mg tablet Discontinued 20 mg PO THREE TIMES A DAY as needed for abdominal pain March 14, 2023 4:33pm August 31, 2024 6:12pm Start: 02-10-2021 End: 03-14-2023 take 1 capsule by mouth twice daily as needed Dicyclomine 10 mg capsule Discontinued 10 mg PO TWICE A DAY as needed for abdominal cramping February 10, 2021 12:00am March 14, 2023 1:41pm Comment on above: Take 1 tablet by [facility] th three times daily. 1 ml diphenhydrAMINE hydrochloride 50 mg/ml cartridge (2 sources) Histamine-1 Receptor Antagonist Start: 06-25-2023 End: 06-25-2023 diphenhydrAMINE (BENADryl) injection 25 mg factor viii, human 1 unt / von willebrand factor, human 1 unt injection (2 sources) Human Antihemophilic Factor, Human Blood Coagulation Factor Start: 09-04-2023 End: 09-04-2023 antihemophilic factor-vwf (AlphaNATE) injection (dosed in VWF) 1,920 VWF:RCo Units Start: 09-04-2023 End: 09-04-2023 antihemophilic factor-vwf (A lphaNATE) injection (dosed in VWF) 1,920 VWF:RCo Units fluconazole 150 mg oral tablet (1 source) Azole Antifungal Start: 05-31-2024 End: 08-31-2024 take 1 tablet by mouth once as needed Fluconazole 150 mg tablet Discontinued 150 mg PO ONE TIME as needed for yeast May 31, 2024 2:56pm August 31, 2024 6:13pm take if you develop yeast, repeat in 1 week if needed gabapentin 100 mg oral capsule (2 sources) Anti-epileptic Agent Start: 09-03-2023 End: 09-03-2023 gabapentin (Neurontin) capsule 100 mg gadobutrol (Gadavist) injection 7 mL (2 sources) Start: 07-28-2023 End: 07-28-2023 gadobutrol (Gadavist) injection 7 mL gadobutrol (Gadavist) injection 7.6 mL (2 sources) Start: 12-07-2022 End: 12-07-2022 gadobutrol (Gadavist) injection 7.6 mL 1 ml HYDROmorphone hydrochloride 1 mg/ml cartridge (4 sources) Opioid Agonist Start: 09-03-2023 End: 09-03-2023 HYDROmorphone (Dilaudid) injection 0.5 mg Start: 09-03-2023 End: 09-03-2023 HYDROmorphone (Dilaudid) 1 M G/ML injection - Pyxis ADS Override Pull HYDROmorphone (Dilaudid) injection 0.25 mg (2 sources) Start: 09-03-2023 End: 09-04-2023 HYDROmorphone (Dilaudid) injection 0.25 mg iopamidol (Isovue-370) 76 % injection 100 mL (2 sources) Start: 06-24-2023 End: 06-24-2023 iopamidol (Isovue-370) 76 % injection 100 mL LEVONORGESTREL-ETH ESTRADIOL (SEASONALE CONTRACEPTIVE ORAL) (2 sources) End: 06-02-2022 LEVONORGESTREL-ETH ESTRADIOL (SEASONALE CONTRACEPTIVE ORAL) Take by mouth. 0 06/02/2022 Discontinued LEVONORGESTREL-E TH ESTRADIOL (SEASONALE CONTRACEPTIVE ORAL) Take by mouth. 0 Active Comment on above: Take by mouth. 1 ml LORazepam 2 mg/ml injection (2 sources) Benzodiazepine Start: End: LORazepam (Ativan) injection 0.5 mg 2 ml metoclopramide 5 mg/ml prefilled syringe (2 sources) Dopamine-2 Receptor Antagonist Start: End: metoclopramide (Reglan) injection 10 mg 1 ml morphine sulfate 4 mg/ml cartridge (2 sources) Opioid Agonist Start: End: morphine injection 4 mg mupirocin 0.02 mg/mg topical ointment (20 sources) RNA Synthetase Inhibitor Antibacterial Start: End: mupirocin (Bactroban) 2 % ointment every 12 hours. 0 01/05/2022 09/15/2023 Discontinued 1 ml naloxone hydrochloride 0.4 mg/ml injection (2 sources) Opioid Antagonist Start: End: naloxone (Narcan) injection 0.4 mg nitrofurantoin, macrocrystals 25 mg / nitrofurantoin, monohydrate 75 mg oral capsule (1 source) Nitrofuran Antibacterial Start: End: take 1 capsule by mouth every twelve hours Nitrofurantoin Monohyd/M-Cryst 100 mg capsule Discontinued 100 mg PO EVERY 12 HOURS May 31, 2024 1:00am August 31, 2024 6:13pm ondansetron 4 mg oral tablet (20 sources) Serotonin-3 Receptor Antagonist Start: End: take 2 tablets by mouth every eight hours as needed for nausea and vomiting ondansetron (Zofran) 4 MG tablet Take 2 tablets (8 mg) by mouth every 8 hours as needed for nausea or vomiting for up to 7 days. 20 tablet 0 09/04/2023 09/17/2023 Discontinued (Therapy completed) Start: 09-03-2023 End: 09-03-2023 ondansetron (Zofran) injecti on 4 mg Start: 06-24-2023 End: 06-24-2023 ondansetron (Zofran) injecti on 4 mg Start: 03-14-2023 End: 05-31-2024 take 1 tablet by mouth every eight hours as needed for nausea Ondansetron 4 mg tablet,disintegrating Discontinued 4 mg PO EVERY 8 HOURS NEEDED as needed for Nausea March 14, 2023 1:00am May 31, 2024 3:22pm Start: 07-06-2022 End: 07-06-2022 ondansetron (Zofran) injecti on 4 mg Start: 06-02-2022 End: 10-01-2022 take 1 tablet by mouth every eight hours as needed for nausea ondansetron orally disintegrating (ZOFRAN ODT) 8 mg disintegrating tablet Indications: Nausea , Bilious vomiting with nausea Take 1 tablet by mouth every 8 hours as needed for nausea/vomiting. 60 tablet 1 10/01/2022 Active Start: 06-02-2022 take 1 tablet by [facility] th every twelve hours as needed for nausea and vomiting Ondansetron 8 mg tablet,disintegrating Active 8 mg PO Q12H as needed for nausea and vomiting March 14, 2023 1:00am Start: 01-24-2022 End: 06-09-2022 ondansetron (ZOFRAN) 4 mg ta blet Comment on above: Take 1 tablet by [facility] th every 8 hours as needed for nausea/vomiting. ondansetron ODT (Zofran-ODT) disintegrating tablet 4 mg (2 sources) Start: End: take 1 tablet by mouth every eight hours as needed for nausea and vomiting ondansetron ODT (Zofran-ODT) disintegrating tablet 4 mg oxyCODONE hydrochloride 5 mg oral tablet (5 sources) Opioid Agonist Start: End: take 1 tablet by mouth every six hours as needed for pain oxyCODONE (Roxicodone) 5 MG immediate release tablet Indications: Epigastric pain Take 1 tablet (5 mg) by mouth every 6 hours as needed for severe pain (7-10) for up to 5 days. 10 tablet 0 09/04/2023 09/17/2023 Discontinued (Therapy completed) Start: 09-03-2023 End: 09-04-2023 take 1 tablet by mouth every four hours as needed for pain oxyCODONE (Roxicodone) immediate release tablet 5 mg penicillin v potassium 500 m g oral tablet (2 sources) Start: 11-19-2016 End: 06-02-2022 penicillin V potassium (V-CILLIN, VEETIDS) 500 mg tablet sincalide (Kinevac) 1.4 mcg in sodium chloride 0.9 % 100 mL infusion (2 sources) Start: 06-23-2023 End: 06-23-2023 sincalide (Kinevac) 1.4 mcg in sodium chloride 0.9 % 100 mL infusion 50 ml sodium chloride 9 mg/m l injection (4 sources) Start: 06-24-2023 End: 06-24-2023 sodium chloride 0.9 % bolus 1,000 mL Start: 07-06-2022 End: 07-06-2022 sodium chloride 0.9 % bolus 1,000 mL technetium Tc-99m mebrofenin (Choletec) radio-isotope injection 3.5 millicurie (2 sources) Start: 06-23-2023 End: 06-23-2023 technetium Tc-99m mebrofenin (Choletec) radio-isotope injection 3.5 millicurie technetium Tc-99m sulfur col loid (Nycomed-SC) radio-isotope solution 1.1 millicurie (2 sources) Start: 06-08-2023 End: 06-08-2023 technetium Tc-99m sulfur colloid (Nycomed-SC) radio-isotope solution 1.1 millicurie Problems Active Problems Problem Classification Problem Date Documented Da te Episodic/Chronic Allergic reactions (4 sources) Allergy status to analgesic agent status; Translations: [Allergy status to narcotic agent status] Onset: 04-26-2018 Episodic Anxiety disorders (7 sources) Anxiety about treatment; Translations: [Generalized anxiety disorder] Onset: 08-30-2023 08-30-2023 Chronic Coagulation and hemorrhagic disorders (20 sources) Von Willebrand's disease; Translations: [Von Willebrand's disease] Onset: 04-14-2012 02-24-2017 Chronic Disorders of teeth and jaw (2 sources) Other specified disorders of teeth and supporting structures; Translations: [Other specified disorders of teeth and supporting structures] Onset: 01-12-2018 Gastrointestinal hemorrhage (7 sources) Rectal hemorrhage; Translations: [Hemorrhage of anus and rectum] Episodic Nausea and vomiting (20 sources) Bilious vomiting; Translations: [Bilious vomiting] Onset: 05-04-2012 Resolved: 09-17-2023 Episodic Noninfectious gastroenteritis (20 sources) Gastroenteritis; Translations: [Noninfective gastroenteritis and colitis, unspecified] Onset: 06-30-2023 02-10-2021 Episodic Other aftercare (1 source) Postoperative visit; Translations: [Encounter for other specified surgical aftercare] 09-17-2023 Episodic Other gastrointestinal disorders (1 source) Irritable bowel syndrome; Translations: [Mixed irritable bowel syndrome] 05-26-2023 Chronic Other gastrointestinal disorders (9 sources) Diarrhea; Translations: [Diarrhea, unspecified] Episodic Other gastrointestinal disorders (3 sources) History of irritable bowel syndrome; Translations: [Personal history of other diseases of the digestive system] 06-16-2023 Episodic Other hematologic conditions (2 sources) H/O: blood disorder; Translations: [Personal history of diseases of the blood and blood-forming organs and certain disorders involving the immune mechanism] 06-16-2023 Episodic Other liver diseases (7 sources) High lipase level in serum; Translations: [Abnormal levels of other serum enzymes] 06-24-2023 Episodic Other lower respiratory disease (2 sources) Cough; Translations: [Cough] Onset: 04-26-2018 Episodic Other lower respiratory disease (1 source) Cough; Translations: [Acute cough] 04-10-2024 Episodic Other nervous system disorders (2 sources) Other chronic pain; Translations: [Other chronic pain] Onset: 06-24-2023 Chronic Other nervous system disorders (3 sources) Anesthesia of skin; Translations: [Anesthesia of skin] 12-07-2022 Episodic Other nervous system disorders (3 sources) Paresthesia; Translations: [Paresthesia of skin] 12-07-2022 Episodic Other nutritional; endocrine; and metabolic disorders (1 source) Unintentional weight loss; Translations: [Abnormal weight loss] 05-26-2023 Episodic Other nutritional; endocrine; and metabolic disorders (2 sources) Weight loss; Translations: [Abnormal weight loss] 07-05-2023 Episodic Other upper respiratory infections (2 sources) Acute upper respiratory infection, unspecified; Translations: [Acute upper respiratory infection, unspecified] Onset: 04-26-2018 Episodic Substance-related disorders (2 sources) Nicotine dependence, cigarettes, uncomplicated; Translations: [Nicotine dependence, cigarettes, uncomplicated] Onset: 01-12-2018 Chronic Unclassified (1 source) Unknown / UNK(Unknown) Onset: 02-24-2017 Unclassified (2 sources) Post-op; Translations: [Post-op] Onset: 09-15-2023 Unclassified (1 source) Von Willebrand disease, unspecified (HCC); Translations: [Von Willebrand disease, unspecified (HCC)] Onset: 06-30-2023 Unclassified (1 source) Von Willebrand disease (HCC); Translations: [Von Willebrand disease (HCC)] Onset: 09-22-2022 Unclassified (1 source) Acute cough; Translations: [Acute cough] Onset: 04-10-2024 Urinary tract infections (1 source) Urinary tract infectious disease; Translations: [Urinary tract infection, site not specified] 06-08-2024 Episodic Past or Other Problems Problem Classification Problem Date Documented Date Episodic/Chronic 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 (20 sources) Generalized abdominal pain; Translations: [Generalized abdominal pain] Onset: 03-19-2023 Resolved: 09-17-2023 Episodic Cardiac dysrhythmias (20 sources) Tachycardia, unspecified; Translations: [Palpitations] Onset: 06-18-2016 02-05-2022 Episodic Disorders of teeth and jaw (4 sources) Dental caries, unspecified; Translations: [Periapical abscess without sinus] Onset: 01-12-2018 Episodic Fluid and electrolyte disorders (4 sources) Hypokalemia; Translations: [Dehydration] Onset: 04-26-2018 Episodic Headache; including migraine (20 sources) Chronic daily headache; Translations: [Chronic daily headache] Onset: 03-20-2013 06-30-2023 Episodic Other diseases of kidney and ureters (2 sources) Vesicoureteral-reflux , unspecified; Translations: [Vesicoureteral-reflu x, unspecified] Onset: 01-12-2018 Episodic Other diseases of kidney and ureters (20 sources) Vesicoureteric reflux; Translations: [Vesicoureteral-reflu x, unspecified] Onset: 11-20-2015 02-05-2022 Episodic Other liver diseases (2 sources) Abnormal levels of other serum enzymes; Translations: [Abnormal levels of other serum enzymes] Onset: 06-24-2023 Episodic Other nutritional; endocrine; and metabolic disorders (2 sources) Abnormal weight loss; Translations: [Abnormal weight loss] Onset: 07-05-2023 Episodic Pancreatic disorders (not diabetes) (7 sources) Disorder of pancreas; Translations: [Disease of pancreas, unspecified] Onset: 07-07-2023 07-05-2023 Episodic Screening and history of mental health and substance abuse codes (2 sources) Personal history of nicotine dependence; Translations: [Personal history of nicotine dependence] Onset: 12-24-2017 Episodic Skin and subcutaneous tissue infections (2 sources) Cellulitis of face; Translations: [Cellulitis of face] Onset: 01-12-2018 Episodic Skull and face fractures (2 sources) Fracture of tooth (traumatic), initial encounter for open fracture; Translations: [Fracture of tooth (traumatic), init encntr for open fracture] Onset: 01-12-2018 Episodic Unclassified (1 source) Von Willebrand disease, unspecified (HCC); Translations: [Von Willebrand disease, unspecified (HCC)] Onset: 09-03-2023 Viral infection (20 sources) Genital warts; Translations: [Anogenital (venereal) warts] Onset: 04-09-2016 02-05-2022 Episodic Results Test Name Value Interpretation Reference Range Facility /YUMIon 10-20-2024 MR/PAT.SANNA RAMÍREZ [facility] Medical Records Department [address] [place] [address] PAT - Anesthesia 10/20/24 1355 MR#: [id number] Acct: [id number] Name: JERRICA SUGGS Rep #: [id number] : 1995 29 From: Kwame Donaldson MD PCP: Dr. 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 - core blower: Anesthesia History - core blower Hx Hospitalization No 10/20/24 10:36 Any Problems With Anesthesia Yes: N,V 10/20/24 10:36 Cholinesterase deficiency No 10/20/24 10:36 You/Your Family Experience No 10/20/24 10:36 fever (hyperthermia) with Relationship Recent Exposure to Contagious Disease Does patient have nerve No 10/20/24 10:36 stimulator Patient instructed to have device shut off --Does patient have Pacemaker or ICD? When Was Last Pacemaker Check QUESTION #4 FULL TEXT: You/Your Family Experience fever (hyperthermia) with Anesthesia Last Oral Intake Last Oral intake: Last Oral Intake NPO since Meds taken in AM with sips of water? Meds patient instructed to take am of surgery PONV PONV - core blower: PONV - core blower Female Yes 10/20/24 10:36 HX of Motion Sickness Yes 10/20/24 10:36 HX of N/V After Surgery Yes 10/20/24 10:36 Non-Smoker Yes 10/20/24 10:36 Duration of Surgery greater No 10/20/24 10:36 than 60 minutes Number of Risk Factors 4 10/20/24 10:36 PONV Score Severe Risk 10/20/24 10:36 Height Weight Height Weight: Anesthesia: Height Weight Height 5 ft 2 in 08/31/24 13:36 Respiratory Assessment Respiratory Assessment - core blower: Respiratory Tract Infection Hx - core blower Hx Respiratory Tract Infection No 10/20/24 10:36 STOP Sleep Apnea STOP Sleep Apnea - core blower: STOP Sleep Apnea - core blower Hx Hypertension No 10/20/24 10:36 Hx Sleep Apnea No 10/20/24 10:36 CPAP BIPAP Do you snore loudly (louder No 10/20/24 10:36 than talking or can be heard Do you often feel tired/ Yes 10/20/24 10:36 fatigued/ sleepy during daytime? Has anyone observed you stop No 10/20/24 10:36 breathing during sleep? STOP Results Negative 10/20/24 10:36 QUESTION #5 FULL TEXT : Do you snore loudly (louder than talking or can be heard through closed doors)? Tobacco Use History Tobacco Use History - core blower: Tobacco Use History - core blower Tobacco Use Smoking Status Former smoker 10/20/24 10:36 Hx Tobacco Use No 10/20/24 10:36 Years Smoking Packs Smoked per Day Smoking Cessation Date was Yes - quit smoking within 15 10/20/24 10:36 within the last 15 years years Hx Smoking Cessation Date 04/26/21 10/20/24 10:36 Hx Smoking Cessation No 10/20/24 10:36 Counseling Hematologic Medial History Hematologic Hx - core blower: Hematologic Medical Hx - manager case management Hx of Blood Transfusion No 10/20/24 10:36 Hx of Transfusion in last 3 No 10/20/24 10:36 Months Date of Last Transfusion (if within last 3 months) Ever experience any problems No 10/20/24 10:36 with transfusion(s)? Specify any problems Hx of Preganancy in last 3 No 10/20/24 10:36 Months Nurse Filling Out Transfusion DSCHRIBER 10/20/24 10:36 Questions: Date: 10/20/24 10/20/24 10:36 Time: 10:38 10/20/24 10:36 Patient unable to answer at this time (ie. confused, unrespo /Reproduction History /Reproductive History - core blower: /Reproductive Hx- core blower Hx Now No 10/20/24 10:36 Gestational Age (in weeks): EDC: Hx Hx Para Hx Section SAB No 10/20/24 10:36 Active Medications Active Medications: Current Medications Generic Name Dose Route Start Last Admin Trade Name Freq PRN Reason Stop Dose Admin Desmopressin Acetate 20 mcg 10/23/24 07:00 Desmopressin Acetate 40 Mcg/10 Ml Vial IV 10/23/24 07:01 PREOP ONE Tranexamic Acid 2,000 mg/ 120 mls @ 280 mls/hr 10/23/24 07:00 Sodium Chloride IV X1 MARYLU PFSH Medical History (Updated 10/20/24 @ 10:51 by Alyx Membreno) PTSD (post-traumatic stress disorder) Anxiety Marijuana use Anemia Dietary restriction History of GI bleed History of diverticulitis Gastric reflux Former smoker Tachycardia Vesico-ureteral reflux IBS (irritable bowel syndrome) Von Willebrand disease Gastroenteritis Home Medications ???Medication ???Instructions ???Recorded ???Last Taken ???Type ondansetron 8 mg disintegrating 8 mg PO Q12H PRN nausea and Unknown History (more content not included)... Normal [facility] CNCOon 09-26-2024 CNCO Letter Text Normal [facility] CNPNon 09-26-2024 CNPN Telephone (HEMAPOB) JERRICA SUGGS ([id number]) 1995 F Date Time Provider Department 09/26/24 BAKARI SILVA HEMAPOB During your visit today, we recorded the following information about you: Bakari Silva MD 09/26/2024 7:06 AM Signed Jerrica called the Answering Service and explained that she has had rectal bleeding since yesterday. I will prescribe Amicar again. She still has DDAVP. She will call the GI office today for an appointment. Bushra Zamora RN 09/26/2024 12:41 PM Signed [facility] made aware. NEYMAR Randle Kristine 10/03/2024 11:49 AM Signed Received faxed clearance for scheduled 10/23/2024 colonoscopy with MAC sedation at [facility]. Allergies As of Date: 09/26/2024 Noted Allergy Reaction ALUMINUM ASPIRIN 03/25/2012 14 - Other: See Comments IBUPROFEN 03/25/2012 16 - Unknown 14 - Other: See Comments Comments: Due to having a bleeding disorder ASPIRIN 12/05/2012 14 - Other: See Comments Comments: Bleeding disorder HYDROCODONE-ACETAMINOPHEN 02/15/2017 16 - Unknown NSAIDS (NON-STEROIDAL ANTI-INFLAM*12/05/2012 14 - Other: See Comments Comments: Bleeding disorder DICYCLOMINE 06/16/2023 14 - Other: See Comments Date Reviewed: 04/10/2024 Reviewed by: Dmitry Galvan APRN.CHILD DAY CARE TEACHER - Fully Assessed Order(s):aminocaproic acid (AMICAR) 250 mg/mL (25 %) solutionTake 20 mL by mouth every 6 hours as needed (bleeding).Disp: 473 mLRfl: 5 Prescriptions as of 10/03/2024 - aminocaproic acid (AMICAR) 250 mg/mL (25 %) solution Take 20 mL by mouth every 6 hours as needed (bleeding). - doxycycline hyclate (VIBRAMYCIN) 100 mg capsule Take 1 capsule by mouth every 12 hours. - escitalopram oxalate (LEXAPRO) 20 mg tablet Take 1 tablet by mouth every afternoon. - albuterol HFA (PROVENTIL HFA, VENTOLIN HFA) 90 mcg/actuation inhaler Inhale 2 Puffs as instructed every 6 hours as needed for wheezing/shortness of breath. - venlafaxine ER (EFFEXOR XR) 150 mg 24 hr capsule - venlafaxine ER (EFFEXOR XR) 37.5 mg 24 hr capsule Take 37.5 mg by mouth. - omeprazole (PRILOSEC) 20 mg capsule Take 1 capsule by mouth once daily. - ondansetron orally disintegrating (ZOFRAN ODT) 8 mg disintegrating tablet Take 1 tablet by mouth every 8 hours as needed for nausea/vomiting. - tranexamic acid (LYSTEDA) 650 mg tablet Take 2 tablets by mouth every 8 hours for 3 days, THEN 2 tablets every 8 hours as needed (Visible GI bleeding) for up to 4 days. - acetaminophen (TYLENOL) 325 mg tablet Take by mouth as directed. - aluminum chloride (DRYSOL) 20 % external solution - hyoscyamine sublingual (LEVSIN/SL) 0.125 mg Dissolve 1 tablet under the tongue every 4 hours as needed. - promethazine (PHENERGAN) 12.5 mg tablet Take 1 tablet by mouth every 6 hours as needed. Problem List As Of Date 09/26/2024 Noted Resolved Von Willebrand disease Type I [D68.00] Encounter for preoperative assessment [Z01.818] 09/04/2022 Prescriptions ordered this encounter Disp Refills Start End AMINOCAPROIC ACID 250 MG/ML (25 %) O* 473 * 5 09/26/2024 Route: PO Sig: Take 20 mL by mouth every 6 hours as needed (bleeding). Medications Discontinued During This Encounter Prescriptions - aminocaproic acid (AMICAR) 250 mg/mL (25 %) solution (Discontinued) Take 20 mL by mouth every 6 hours as needed (bleeding). Encounter Status:Closed by BAKARI SILVA on 09/26/24 Normal [facility] CBC (INCLUDES DIFF/PLT)on Basophils (Bld) [#/Vol] 0.052 10*3/uL Normal 0-200 [facility] Comment on above: Performed By: #### 6 399, [id number] #### [facility] [place] [address] Machine Oiler: Rafael Lundberg MD Basophils/100 WBC (Bld) 0.6 % Normal [facility] Comment on above: Performed By: #### 6 399, [id number] #### [facility] [place] [address] Machine Oiler: Rafael Lundberg MD Eosinophils (Bld) [#/Vol] 0.461 10*3/uL Normal 15-500 [facility] Comment on above: Performed By: #### 6 399, [id number] #### [facility] [place] [address] Machine Oiler: Rafael Lundberg MD Eosinophils/100 WBC (Bld) 5.3 % Normal [facility] Comment on above: Performed By: #### 6 399, 26867 #### [facility] [place] [address] Machine Oiler: Rafael Lundberg MD Erythrocyte distribution width (RBC) [Ratio] 12.8 % Normal 11.0-15.0 [facility] Comment on above: Performed By: #### 6 399, 93207 #### [facility] of [address], [address] [place] [address] Machine Oiler: Rafael Lundberg MD Hematocrit (Bld) [Volume fraction] 44.3 % Normal 35.0-45.0 [facility] Comment on above: Performed By: #### 6 399, 64173 #### [facility] of [address], [address] [place] [address] Machine Oiler: Rafael Lundberg MD Hemoglobin (Bld) [Mass/Vol] 14.6 g/dL Normal 11.7-15.5 [facility] Comment on above: Performed By: #### 6 399, 19119 #### [facility] of [address], [address] [place] [address] Machine Oiler: Rafael Lundberg MD Lymphocytes (Bld) [#/Vol] 2.488 10*3/uL Normal 850-3900 [facility] Comment on above: Performed By: #### 6 399, 03742 #### [facility] of [address], [address] [place] [address] Machine Oiler: Rafael Lundberg MD Lymphocytes/100 WBC (Bld) 28.6 % Normal [facility] Comment on above: Performed By: #### 6 399, 37593 #### [facility] of [address], [address] [place] [address] Machine Oiler: Rafael Lundberg MD MCH (RBC) [Entitic mass] 30.6 pg Normal 27.0-33.0 [facility] Comment on above: Performed By: #### 6 399, 64229 #### [facility] of [place] [address] Machine Oiler: Rafael Lundberg MD MCHC (RBC) [Mass/Vol] 33.0 g/dL Normal 32.0-36.[address] [facility] Comment on above: Result Comment: For adults, a slight decrease in the calculated MCHC value (in the range of 30 to 32 g/dL) is most likely not clinically significant; however, it should be interpreted with caution in correlation with other red cell parameters and the patient's clinical condition. Performed By: #### 6 399, 68671 #### [facility] of [place] [address] Machine Oiler: Rafael Lundberg MD MCV (RBC) [Entitic vol] 92.9 fL Normal 80.0-100.0 [facility] Comment on above: Performed By: #### 6 399, 52741 #### [facility] of [address], [address] [place] [address] Machine Oiler: Rafael Lundberg MD Monocytes (Bld) [#/Vol] 0.609 10*3/uL Normal 200-950 [facility] Comment on above: Performed By: #### 6 399, 97631 #### [facility] of [place] [address] Machine Oiler: Rafael Lundberg MD Monocytes/100 WBC (Bld) 7.0 % Normal [facility] Comment on above: Performed By: #### 6 399, 31060 #### [facility] of [place] [address] Machine Oiler: Rafael Lundberg MD Neutrophils (Bld) [#/Vol] 5.09 10*3/uL Normal 0865-5966 [facility] Comment on above: Performed By: #### 6 399, 43753 #### [facility] of [place] [address] Machine Oiler: Rafael Lundberg MD Neutrophils/100 WBC (Bld) 58.5 % Normal [facility] Comment on above: Performed By: #### 6 399, 55999 #### [facility] of [place] [address] Machine Oiler: Rafael Lundberg MD Platelet mean volume (Bld) [Entitic vol] 10.9 fL Normal 7.5-12.5 [facility] Comment on above: Performed By: #### 6 399, 50493 #### [facility] of [address] [place] [address] Machine Oiler: Rafael Lundberg MD Platelets (Bld) [#/Vol] 270 10*3/uL Normal 140-400 [facility] Comment on above: Performed By: #### 6 399, 24956 #### [facility] of [address], [address] [place] [address] Machine Oiler: Rafael Lundberg MD RBC (Bld) [#/Vol] 4.77 10*6/uL Normal 3.80-5.10 [facility] Comment on above: Performed By: #### 6 399, 73331 #### [facility] of [address], [address] [place] [address] Machine Oiler: Rafael Lundberg MD WBC (Bld) [#/Vol] 8.7 10*3/uL Normal 3.8-10.8 [facility] Comment on above: Performed By: #### 6 399, 44012 #### [facility] of [address], [address] [place] [address] Machine Oiler: Rafael Lundberg MD [facility] METABOLIC [facility] 09-16-2024 ALBUMIN Normal [facility] Comment on above: Order Comment: 0; 0; 0 FASTING:NO FASTING: NO Performed By: #### 6 399, 37503 #### [facility] of [address], [address] [place] [address] Machine Oiler: Rafael Lundberg MD ALBUMIN/GLOBULIN RATIO Normal [facility] Comment on above: Order Comment: 0; 0; 0 FASTING:NO FASTING: NO Performed By: #### 6 399, 54867 #### [facility] of [address], [address] [place] [address] Machine Oiler: Rafael Lundberg MD ALKALINE PHOSPHATASE [facility] Comment on above: Order Comment: 0; 0; 0 FASTING:NO FASTING: NO Performed By: #### 6 399, 24943 #### [facility] of [place] [address] Machine Oiler: Rafael Lundberg MD ALT Normal [facility] Comment on above: Order Comment: 0; 0; 0 FASTING:NO FASTING: NO Performed By: #### 6 399, 96155 #### [facility] of [place] [address] Machine Oiler: Rafael Lundberg MD AST Normal [facility] Comment on above: Order Comment: 0; 0; 0 FASTING:NO FASTING: NO Performed By: #### 6 399, 83318 #### [facility] of [place] [address] Machine Oiler: Rafael Lundberg MD BILIRUBIN, TOTAL Normal [facility] Comment on above: Order Comment: 0; 0; 0 FASTING:NO FASTING: NO Performed By: #### 6 399, 45662 #### [facility] of [place] [address] Machine Oiler: Rafael Lundberg MD BUN/CREATININE RATIO [facility] Comment on above: Order Comment: 0; 0; 0 FASTING:NO FASTING: NO Performed By: #### 6 399, 25059 #### [facility] of [address], [address] [place] [address] Machine Oiler: Rafael Lundberg MD CALCIUM Normal [facility] Comment on above: Order Comment: 0; 0; 0 FASTING:NO FASTING: NO Performed By: #### 6 399, 45313 #### [facility] of [place] [address] Machine Oiler: Rafeal Lundberg MD CARBON DIOXIDE Normal [facility] Comment on above: Order Comment: 0; 0; 0 FASTING:NO FASTING: NO Performed By: #### 6 399, 35392 #### [facility] of [place] [address] Machine Oiler: Rafael Lundberg MD CHLORIDE Normal [facility] Comment on above: Order Comment: 0; 0; 0 FASTING:NO FASTING: NO Performed By: #### 6 399, 02399 #### [facility] of [address], [address] [place] [address] Machine Oiler: Rafael Lundberg MD CREATININE Normal [facility] Comment on above: Order Comment: 0; 0; 0 FASTING:NO FASTING: NO Performed By: #### 6 399, 78237 #### [facility] of [address], [address] [place] [address] Machine Oiler: Rafael Lundberg MD EGFR Normal [facility] Comment on above: Order Comment: 0; 0; 0 FASTING:NO FASTING: NO Performed By: #### 6 399, 54798 #### [facility] of [address], [address] [place] [address] Machine Oiler: Rafael Lundberg MD GLOBULIN Normal [facility] Comment on above: Order Comment: 0; 0; 0 FASTING:NO FASTING: NO Performed By: #### 6 399, 06376 #### [facility] of [address], [address] [place] [address] Machine Oiler: Rafael Lundberg MD GLUCOSE Normal [facility] Comment on above: Order Comment: 0; 0; 0 FASTING:NO FASTING: NO Performed By: #### 6 399, 60352 #### [facility] of [address], [address] [place] [address] Machine Oiler: Rafael Lundberg MD POTASSIUM Normal [facility] Comment on above: Order Comment: 0; 0; 0 FASTING:NO FASTING: NO Performed By: #### 6 399, 48748 #### [facility] of [address], [address] [place] [address] Machine Oiler: Rafael Lundberg MD PROTEIN, TOTAL Normal [facility] Comment on above: Order Comment: 0; 0; 0 FASTING:NO FASTING: NO Performed By: #### 6 399, 78487 #### [facility] of [address], [address] [place] [address] Machine Oiler: Rafael Lundberg MD SODIUM Normal [facility] Comment on above: Order Comment: 0; 0; 0 FASTING:NO FASTING: NO Performed By: #### 6 399, 47577 #### [facility] of [address], [address] [place] [address] Machine Oiler: Rafael Lundberg MD UREA NITROGEN (BUN) Normal [facility] Comment on above: Order Comment: 0; 0; 0 FASTING:NO FASTING: NO Performed By: #### 6 399, 42862 #### [facility] [address] [place] [address], [address] Machine Oiler: Rafael Lundberg MD LIPASEon 09-16-2024 LIPASE Normal [facility] Comment on above: Performed By: #### 6 399, 09359 #### [facility] [address], [address] [place] [address] Machine Oiler: Rafael Lundberg MD Gastroenterology Visit [facility] 09-04-[address] [facility] [address] [place] [address] OFFICE VISIT Date of Service: 09/04/24 MR#: [id number] Acct: [id number] Name: JERRICA SUGGS Rep #: [id number] : 1995 Provider: SANDRA delarosa Age/Sex: 29/F Location: [facility] Status: Signed Intake Vital Signs 08/31/24 13:36 09/04/24 13:18 Height 5 ft 2 in Weight: 176 lb 6 oz BP 113/76 Blood Pressure Location Lt brachial Position Sitting Respiration 17 Pulse 92 Pulse Source Monitor Pulse Oximetry (%) 97 Oxygen Delivery Method room air Intake Visit Reasons: ER FU-IBS DIARRHEA/VONMOLBRANS Chief Complaint: ER F/U Allergies dicyclomine Allergy (Mild, Verified 09/04/24 13:21) palpitations aspirin Adverse Reaction (Severe, Verified 09/04/24 13:21) Bleeding ibuprofen Adverse Reaction (Severe, Verified 09/04/24 13:21) Bleeding naproxen Adverse Reaction (Severe, Verified 09/04/24 13:21) Bleeding Medications ???Medication ???Instructions ???Recorded ???Confirmed ???Type ondansetron 8 mg disintegrating 8 mg PO Q12H PRN nausea and 09/04/24 History tablet vomiting amoxicillin 875 mg-potassium 1 tab PO BID #20 tabs 08/31/2404/19 Rx clavulanate 125 mg tablet escitalopram oxalate 20 mg tablet 20 mg PO QHS 08/31/24 09/04/24 Hi story hyoscyamine sulfate 0.125 mg 0.125 - 0.25 mg sublingual TID PRN 08/31/24 09/04/24 History sublingual tablet dyspepsia promethazine 12.5 mg tablet 12.5 mg PO TID PRN nausea and 12/1809/04/24 History vomiting alprazolam 0.5 mg tablet (Xanax) 0.5 mg PO ONCE PRN anxiety 5 History Nurse's Note: Pt states she was referred here from the hospital. She had her gallbladder removed and was told it would solve all of her issues. Recently its all started back up and she has Colitis. She was told it could potentially be IBS but then the doctor who talked to was told it wasn't. Abdomen pain and nausea vomiting. PFSH Medical History Vesico-ureteral reflux IBS (irritable bowel syndrome) Von Willebrand disease Gastroenteritis Surgical History H/O adenoidectomy Hx of section Hx of tonsillectomy Social History Smoking Status: Former smoker HPI HPI Chief Complaint: ER F/U Details: JERRICA SUGGS, is a 29 F who presents to the office today for 29-year-old female presents for initial consultation after being seen in the emergency department on 08/31/2024 with complaints of abdominal pain and rectal bleeding. PMH is significant for IBS and von Willebrand's disease type I. She did speak with her chrome polisher who told her to take DDAVP which she did and the bleeding seemed to slow down a bit. Labs reveal normal WBC, hemoglobin of 15.7, normal transaminases and lipase 253. CT scan with IV contrast revealed descending and rectosigmoid wall thickening with mild submucosal hyperemia and surrounding mesenteric soft tissue stranding. Findings concerning for infectious colitis. No stool studies were performed. She was prescribed Augmentin twice daily for 10 days and Xanax 0.5 mg twice daily as needed anxiety. ED workup included: Labs: WBC normal, hemoglobin 15.7, normal transaminases, lipase elevated 253 CT abdomen and pelvis with IV contrast revealed wall thickening of the descending and rectosigmoid colon, mild to moderate submucosal hyperemia, and mesenteric soft tissue stranding, concerning for infectious colitis No stool studies performed Treatment initiated: Augmentin twice daily x 10 days Xanax 0.5 mg twice daily as needed for anxiety HISTORICAL IMAGING: CT 05/31/2024 Mild distended fluid-filled small bowel loops in left upper quadrant. Fluid and fecal material seen in the right hemicolon. CT 03/14/2023 1. Nonspecific fluid-filled small bowel loops without evidence of bowel obstruction. Enteritis is possible. CT 07/02/2023 1.2 cm ovoid hypodense nodule inferior to the mid pancreatic body - she is in [employer] - Wednesday when at school she had BRB - left school and called chrome polisher took DDAVP - reports her stomach has been hurting bad worse than normal - seen in ED on 08/31 - reports she was laying on the bathroom floor due to pain - has chronic pain, comes in waves of intensity, can double her over - prior to onset of bleeding she did not have any onset of severe pain, cramping - reports she typically has soft/loose stools, several times a day - diarrhea is no worse post CCX - pain never resolved with CCX - hyoscyamine PRN - does not slow down stools, slightly decreases abdominal pain to a more tolerable level - Xanax is the only thi (more content not included)... Normal [facility] Abdomen/Pelvis W IV Cont ONL Yon 08-31-2024 Abdomen/Pelvis W IV Cont ONLY [facility] Imaging Services [address], [place] [id number] Abdomen/Pelvis W IV Cont ONLY MR#: [id number] Acct: [id number] Name: JERRICA SUGGS Rep #: [id number] : 1995 F 29 From: Quincy hernandez MD PCP: Dr. Nunu Cortez MD Status: REG ER Study: Abdomen/Pelvis W IV Cont ONLY Date of Exam: Exam# [id number] Ordering Dr: Tom Garcia DO PROCEDURE: ABDOMEN/PELVIS W IV CONT ONLY 08/31/2024 REASON FOR EXAM: ABDOMINAL PAIN, RECTAL BLEEDING TECHNIQUE: Abdomen and pelvis CT with intravenous contrast. Coronal and Sagittal reconstruction series were provided. PATIENT PREPARATION: Per protocol ORAL CONTRAST TYPE: None. AMOUNT: mL CONTRAST: Omnipaque 350 VOLUME: 100 mL Not Provided Gauge IV One or more dose reduction techniques were used (e.g., Automated exposure control, adjustment of the mA and/or kV according to patient size, use of iterative reconstruction technique. COMPARISON: CT abdomen and pelvis 05/31/2019 FINDINGS: Lung bases: Unremarkable Liver: Normal size. No mass. Gallbladder: Surgically absent. No ductal dilation. Spleen: Normal size. Pancreas: Normal size without evidence of mass surrounding inflammation or ductal dilation. Adrenals: Unremarkable. Kidneys: Normal renal sizes. No hydronephrosis. Bladder: Urinary bladder is unremarkable. Reproductive Organs: IUD is noted a normal position. Bowel: Stomach is unremarkable. No bowel dilation. Descending and rectosigmoid wall thickening with mild submucosal hyperemia and surrounding mesenteric soft tissue stranding. Findings concerning for infectious colitis.. Appendix: Normal appendix. Lymph nodes: No suspicious lymph node enlargement. Vasculature: The abdominal aorta and IVC are normal. Peritoneum / Retroperitoneum: No ascites. No pneumoperitoneum. Bones: Unremarkable. CT/Abdomen/Pelvis W IV Cont ONLY IMPRESSION: Descending and rectosigmoid colon, wall thickening, mild submucosal hyperemia and mesenteric soft tissue stranding, concerning for acute infectious colitis. Reading Location: [facility] CC: Dr. Nunu Cortez MD; Dr. Tom Garcia DO Roll Tension Tester: Signed Normal [facility] Absolute lymphocyte countOrd ered By: ED PROVIDER on 08-31-2024 Lymphocytes Auto (Unsp spec) [#/Vol] 3.11 10*3/uL 0.83-4.51 [facility] Absolute neutrophil countOrd ered By: ED PROVIDER on 08-31-2024 Neutrophils (Bld) [#/Vol] 5.7 10*3/uL 2.0-7.7 [facility] Anion gap in Serum or Plasma Ordered By: ED PROVIDER on 08-31-2024 Anion gap [Moles/Vol] 11 mmol/L 5-15 [facility] Automated lymphocyte count a s percentage of total leukocytesOrdered By: ED PROVIDER on 08-31-2024 Lymphocytes/100 WBC Auto (Unsp spec) 31.1 % 19-41 [facility] BUN/creatinine ratioOrdered By: ED PROVIDER on 08-31-2024 Urea nitrogen/Creatinine [Mass ratio] 9.1 mg/mg Low 10-20 [facility] Basophil percentageOrdered B y: ED PROVIDER on 08-31-2024 Basophils/100 WBC (Bld) 0.7 % 0-1 [facility] Bilirubin, totalOrdered By: ED PROVIDER on 08-31-2024 Bilirubin [Mass/Vol] 0.59 mg/dL 0.00-1.30 [facility] CBC W/Diff, Automatedon Absolute Lymph 3.11 X10 3/uL Normal 0.83-4.51 [facility] Comment on above: Performed By: #### L 100.0100, L501.2450, L500.4050, L700.6800 #### [facility] [address] [place], [address] Absolute Neut 5.7 X10 3/uL Normal 2.0-7.7 [facility] Comment on above: Performed By: #### L 100.0100, L501.2450, L500.4050, L700.6800 #### [facility] [address] [place], [address] Basophils/100 WBC (Bld) 0.7 % Normal 0-1 [facility] Comment on above: Performed By: #### L 100.0100, L501.2450, L500.4050, L700.6800 #### [facility] [address] [place], [address] Eosinophils/100 WBC (Bld) 2.8 % Normal 0-5 [facility] Comment on above: Performed By: #### L 100.0100, L501.2450, L500.4050, L700.6800 #### [facility] [address] [place], [address] Erythrocyte distribution width (RBC) [Ratio] 11.8 % Normal 11.6-14.6 [facility] Comment on above: Performed By: #### L 100.0100, L501.2450, L500.4050, L700.6800 #### [facility] [address] [place], [address] Hematocrit (Bld) [Volume fraction] 44.4 % Normal 37-47 [facility] Comment on above: Performed By: #### L 100.0100, L501.2450, L500.4050, L700.6800 #### [facility] [address] [place], [address] Hemoglobin (Bld) [Mass/Vol] 15.7 g/dL High 12.0-15.0 [facility] Comment on above: Performed By: #### L 100.0100, L501.2450, L500.4050, L700.6800 #### [facility] [address] [place], [address] IG% 0.300 Normal 0.0-0.9 [facility] Comment on above: Result Comment: IG% - Immature Granulocytes (promyelocytes, myelocytes and metamyelocytes) > 1% indicates that a LEFT SHIFT is Present. Performed By: #### L 100.0100, L501.2450, L500.4050, L700.6800 #### [facility] [address] [place], [address] Lymphocytes/100 WBC (Bld) 31.1 % Normal 19-41 [facility] Comment on above: Performed By: #### L 100.0100, L501.2450, L500.4050, L700.6800 #### [facility] [address] [place], [address] MCH (RBC) [Entitic mass] 30.4 pg Normal 27.0-32.0 [facility] Comment on above: Performed By: #### L 100.0100, L501.2450, L500.4050, L700.6800 #### [facility] [address] [place], [address] MCHC (RBC) [Mass/Vol] 35.4 g/dL Normal 32-36 [facility] Comment on above: Performed By: #### L 100.0100, L501.2450, L500.4050, L700.6800 #### [facility] [address] [place], [address] MCV (RBC) [Entitic vol] 86.0 fL Normal 81-99 [facility] Comment on above: Performed By: #### L 100.0100, L501.2450, L500.4050, L700.6800 #### [facility] [address] [place], [address] Monocytes/100 WBC (Bld) 8.3 % Normal 0-10 [facility] Comment on above: Performed By: #### L 100.0100, L501.2450, L500.4050, L700.6800 #### [facility] [address] [place], [address] Neutrophils/100 WBC (Bld) 56.8 % Normal 47-70 [facility] Comment on above: Performed By: #### L 100.0100, L501.2450, L500.4050, L700.6800 #### [facility] [address] [place], [address] Nucleated RBC (Bld) [#/Vol] 0 10*3/uL Normal 0-5 [facility] Comment on above: Performed By: #### L 100.0100, L501.2450, L500.4050, L700.6800 #### [facility] [address] [place], [address] Platelet mean volume (Bld) [Entitic vol] 10.5 fL Normal 6.2-12.0 [facility] Comment on above: Performed By: #### L 100.0100, L501.2450, L500.4050, L700.6800 #### [facility] [address] [place], [address] Platelets (Bld) [#/Vol] 260 10*3/uL Normal 150-450 [facility] Comment on above: Performed By: #### L 100.0100, L501.2450, L500.4050, L700.6800 #### [facility] [address] [place], [address] RBC (Bld) [#/Vol] 5.16 10*6/uL Normal 4.2-5.4 [facility] Comment on above: Performed By: #### L 100.0100, L501.2450, L500.4050, L700.6800 #### [facility] [address] [place], [address] RDW SD 37.3 fl Normal 35.1-43.9 [facility] Comment on above: Performed By: #### L 100.0100, L501.2450, L500.4050, L700.6800 #### [facility] [address] [place], [address] WBC (Bld) [#/Vol] 10.0 10*3/uL Normal 4.4-11.0 [facility] Comment on above: Performed By: #### L 100.0100, L501.2450, L500.4050, L700.6800 #### [facility] [address] [place], [address] Carbon dioxide, total [Moles /volume] in Central venous bloodOrdered By: ED PROVIDER on 08-31-2024 CO2 [Moles/Vol] 26.4 mmol/L 21.0-32.0 [facility] Chloride assayOrdered By: ED PROVIDER on 08-31-2024 Chloride [Moles/Vol] 101 mmol/L 98-108 [facility] Comprehensive Metabolic Prof ilon 08-31-2024 Albumin [Mass/Vol] 4.6 g/dL Normal 3.5-5.0 [facility] Comment on above: Performed By: #### M 100.637, M100.96 #### [facility] [address] [place], [address] Albumin/Globulin [Mass ratio] 1.4 {ratio} Normal 0.9-2.4 [facility] Comment on above: Performed By: #### M 100.637, M1.96 #### [facility] [address] [place], [address] ALK PHOS 68 U/L Normal 35-104 [facility] Comment on above: Performed By: #### M 100.637, M100.96 #### [facility] [address] [place], [address] ALT [Catalytic activity/Vol] 18 U/L Normal <=34 [facility] Comment on above: Performed By: #### M 100.637, M100.96 #### [facility] [address] [place], [address] AST [Catalytic activity/Vol] 24 U/L Normal <=31 [facility] Comment on above: Performed By: #### M 100.637, M100.6796 #### [facility] [address] [place], [address] Bilirubin [Mass/Vol] 0.59 mg/dL Normal 0.00-1.30 [facility] Comment on above: Performed By: #### M 100.637, M100.96 #### [facility] [address] [place], [address] BUN/CRE 9.1 RATIO Low 10-20 [facility] Comment on above: Performed By: #### M 100.637, M1.96 #### [facility] [address] [place], [address] Calcium [Mass/Vol] 9.2 mg/dL Normal 7.6-11.0 [facility] Comment on above: Performed By: #### M 100.637, M1.96 #### [facility] [address] [place], [address] Chloride [Moles/Vol] 101 mmol/L Normal 98-108 [facility] Comment on above: Performed By: #### M 100.637, M1.96 #### [facility] [address] [place], [address] CO2 [Moles/Vol] 26.4 mmol/L Normal 21.0-32.0 [facility] Comment on above: Performed By: #### M 100.637, M1.96 #### [facility] [address] [place], [address] Creatinine [Mass/Vol] 0.72 mg/dL Normal 0.70-1.20 [facility] Comment on above: Performed By: #### M 100.637, M1.96 #### [facility] [address] [place], [address] ECRCL 113.18 ml/min Normal 50-250 [facility] Comment on above: Performed By: #### M 100.637, M1.96 #### [facility] [address] [place], [address] GAP 11 Normal 5-15 [facility] Comment on above: Performed By: #### M 100.637, M1.96 #### [facility] [address] [place], [address] GFR/1.73 sq M.predicted among non-blacks MDRD (S/P/Bld) [Vol rate/Area] 117 mL/min/{1.73_m2} Normal >60 [facility] Comment on above: Result Comment: mL/m in/1.73m2 CKD-EPI Creatinine Equation (2020) Performed By: #### M 100.637, M1.96 #### [facility] [address] [place], [address] Globulin (S) [Mass/Vol] 3.3 g/dL Normal 2.2-4.2 [facility] Comment on above: Performed By: #### M 100.637, .96 #### [facility] [address] [place], [address] Glucose [Mass/Vol] 80 mg/dL Normal 70-99 [facility] Comment on above: Performed By: #### M 100.637, M1.96 #### [facility] [address] [place], [address] Potassium [Moles/Vol] 3.4 mmol/L Normal 3.3-5.1 [facility] Comment on above: Performed By: #### M 100.637, M1.96 #### [facility] [address] [place], [address] Sodium [Moles/Vol] 138 mmol/L Normal 133-145 [facility] Comment on above: Performed By: #### M 100.637, M1.96 #### [facility] [address] [place], [address] T PROT 7.9 g/dL Normal 5.9-8.4 [facility] Comment on above: Performed By: #### M 100.637, M100.6796 #### [facility] [address] [place], [address] Urea nitrogen [Mass/Vol] 7 mg/dL Normal 4-19 [facility] Comment on above: Performed By: #### M 100.637, M100.6796 #### [facility] [address] [place], [address] Emergency Department Summary on 08-31-2024 Emergency Department Summary [facility] Medical Records Department [address] [place] [address] Emergency Department Summary 08/31/24 MR#: [id number] Acct: [id number] Name: JERRICA SUGGS Rep #: [id number] : 1995 29 From: Tom Garcia DO PCP: Dr. Nunu Cortez MD Status:DEP ER Location: ED HPI HPI - GI History of Present Illness Chief Complaint: GI Bleed Detail of Chief Complaint: 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 and rectal bleeding Informant: patient Narrative Narrative: Patient presents with abdominal pain and rectal bleeding that started 2 days ago. She also has history of IBS and history of of von Willebrand's disease type I. She called her chrome polisher 2 days ago who told her to take her DDAVP which she did in the bleeding seemed to slow down a little bit. Patient also complaining of a headache which she states is a side effect of taking the DDAVP. She has had watery stools that have been bloody. She states that her last colonoscopy was about a year ago and she was told she had diverticulosis and some inflammation of the colon but not totally consistent with Crohn's. Patient denies any fevers. She denies urinary symptoms. She has had no nausea or vomiting. [facility] Medical History IBS (irritable bowel syndrome) Von Willebrand disease Gastroenteritis Home Medications ???Medication ???Instructions ???Recorded ???Last Taken ???Type alprazolam 0.5 mg tablet (Xanax) 0.5 mg PO TID PRN abdominal pain 3 03/14/23 Unknown Rx days #12 tabs ondansetron 8 mg disintegrating 8 mg PO Q12H PRN nausea and Unknown History tablet vomiting alprazolam 0.5 mg tablet (Xanax) 0.5 mg PO BID PRN anxiety #10 tabs 08/31/24 Unknown Rx amoxicillin 875 mg-potassium 1 tab PO BID #20 tabs 08/31/24 Unk nown Rx clavulanate 125 mg tablet escitalopram oxalate 20 mg tablet 20 mg PO QHS 08/31/24 08/30/24 Hi story hyoscyamine sulfate 0.125 mg 0.125 - 0.25 mg sublingual TID PRN 08/31/24 Unknown History sublingual tablet dyspepsia promethazine 12.5 mg tablet 12.5 mg PO TID PRN nausea and 12/18 Unknown History vomiting Allergy/AdvReac Type Severity Reaction Status Date / Time dicyclomine Allergy Mild palpitation Verified 08/31/24 13:41 s aspirin AdvReac Severe Bleeding Verified 08/31/24 13:41 ibuprofen AdvReac Severe Bleeding Verified 08/31/24 13:41 naproxen AdvReac Severe Bleeding Verified 08/31/24 13:41 Family History no significant family his Surgical History Hx of section Hx of tonsillectomy Social History Smoking Status: Former smoker ROS ROS ED Review of Systems ROS Unobtainable: other Constitutional Constitutional ED: Reports lethargy; Denies chills, fever(s), sweats or weight loss Eyes Eyes: Denies blurry vision, change in vision or diplopia ENT ENT ED: Denies rhinorrhea or sore throat Cardiovascular Cardiovascular: Denies chest pain, orthopnea or racing heartbeat Respiratory/Chest Respiratory/Chest: Denies cough, dyspnea, dyspnea on exertion, orthopnea or sputum Gastrointestinal Gastrointestinal: Reports abdominal pain and other Details: Bright red blood per rectum ; Denies diarrhea, nausea or vomiting Genitourinary Genitourinary ED: Denies dysuria, hematuria or urinary frequency Musculoskeletal Musculoskeletal: Denies arthralgias, back pain, myalgias or neck pain Integumentary Denies abscess, Abrasions or rash Neurologic Neurologic: Denies headache(s) or weakness Psychiatric Psychiatric: Denies anxiety, depression or suicidal thoughts Endocrine Endocrinology: Denies polydipsia, polyphagia or polyuria Hematologic/Lymphatic Hematologic/Lymphatic: Denies easy bleeding, easy bruising or lymphadenopathy Allergic/Immunologic Allergic/Immunologic ED: Denies mouth swelling, tongue swelling or urticaria EXAM Physical Exam Const Vital Signs: 08/31/24 13:36 08/31/24 15:35 08/31/24 16:36 Temperature 98.4 F Temperature Source Oral Pulse Rate 109 H 89 Pulse Rate [Lying] 87 Pulse Rate [Sitting (for 1 minute prior to obtaining)] 90 Pulse Rate [Standing (for 1 minute prior to obtaining)] 106 H Respiratory Rate 15 Blood Pressure 116/79 103/63 Blood Pressure [Lying] 103/63 Blood Pressure [Sitting (for 1 minute prior to obtaining)] 110/74 Blood Pressure [Standing (for 1 minute prior to obtaining)] 107/68 Blood Pressure Mean 91 76 Blood Pressure Mean [Lying] 76 Blood Pressure Mean [Sitting (for 1 minute prior to obtaining)] 86 Blood Pressure Mean [Standing (for 1 minute prior to obtaining)] 81 Pulse Ox 97 98 Oxygen Delivery Method Room Air 08/31/24 17:00 08/31/24 17:03 Temperature 98.7 F (more content not included)... Normal [facility] Eosinophil percentageOrdered By: ED PROVIDER on 08-31-2024 Eosinophils/100 WBC (Bld) 2.8 % 0-5 [facility] Erythrocyte distribution wid th ratioOrdered By: ED PROVIDER on 08-31-2024 Erythrocyte distribution width (RBC) [Ratio] 11.8 % 11.6-14.6 [facility] Erythrocyte distribution wid th standard deviationOrdered By: ED PROVIDER on 08-31-2024 Erythrocyte distribution width (RBC) [Ratio] 37.3 fl 35.1-43.9 [facility] Glomerular filtration rate ( GFR) estimation/1.73 sq m using serum, plasma, or whole bOrdered By: ED PROVIDER on 08-31-2024 GFR/1.73 sq M.predicted among non-blacks MDRD (S/P/Bld) [Vol rate/Area] 117 mL/min/{1.73_m2} >60 [facility] Comment on above: mL/min/1.73m2 CKD-EP I Creatinine Equation (2020) Hematocrit Auto (Bld) [Volum e fraction]Ordered By: ED PROVIDER on 08-31-2024 Hematocrit (Bld) [Volume fraction] 44.4 % 37-47 [facility] Hemoglobin measurementOrdere d By: ED PROVIDER on 08-31-2024 Hemoglobin (Bld) [Mass/Vol] 15.7 g/dL High 12.0-15.0 [facility] Immature granulocytes/100 WB C Auto (Bld)Ordered By: ED PROVIDER on 08-31-2024 Immature granulocytes/100 WBC (Bld) 0.300 % 0.0-0.9 [facility] Comment on above: IG% - Immature Granu locytes (promyelocytes, myelocytes and metamyelocytes) > 1% indicates that a LEFT SHIFT is Present. Laboratory - Chemistry and C hemistry - challengeOrdered By: ED PROVIDER on 08-31-2024 AST [Catalytic activity/Vol] 24 U/L <32 [facility] Lactic acid measurementOrder ed By: Tom Garcia on 08-31-2024 Lactate [Moles/Vol] mmol/L Normal 0.0-2.0 [facility] Comment on above: Order Comment: Y Performed By: #### L 503.6005 #### [facility] [address] [place], [address] Lipaseon 08-31-2024 Lipase [Catalytic activity/Vol] 253 U/L High 13-75 [facility] Comment on above: Result Comment: Lorraine marmolejo note: LIPASE revised reference range effective 22. New Lipase methodology. Expected to produce lower values than the previous assay method. NEW Reference Range: 13 - 75 U/L Performed By: #### M 100.637, M100.6796 #### [facility] [address] [place], [place], [address] Lipase measurementOrdered By : ED PROVIDER on 08-31-2024 Lipase [Catalytic activity/Vol] 253 U/L High 13-75 [facility] Comment on above: Please note:LIPASE r evised reference range effective 22. New Lipase methodology. Expected to produce lower values than the previous assay method. NEW Reference Range: 13 - 75 U/L MCV (mean corpuscular volume ) determinationOrdered By: ED PROVIDER on 08-31-2024 MCV (RBC) [Entitic vol] 86.0 fL 81-99 [facility] Mean corpuscular hemoglobin (MCH) determinationOrdered By: ED PROVIDER on 08-31-2024 MCH (RBC) [Entitic mass] 30.4 pg 27.0-32.0 [facility] Mean corpuscular hemoglobin concentration (MCHC) determinationOrdered By: ED PROVIDER on 08-31-2024 MCHC (RBC) [Mass/Vol] 35.4 g/dL 32-36 [facility] Mean platelet volume determi nationOrdered By: ED PROVIDER on 08-31-2024 Platelet mean volume (Bld) [Entitic vol] 10.5 fL 6.2-12.0 [facility] Monocyte percentageOrdered B y: ED PROVIDER on 08-31-2024 Monocytes/100 WBC (Bld) 8.3 % 0-10 [facility] Neutrophil percentageOrdered By: ED PROVIDER on 08-31-2024 Neutrophils/100 WBC (Bld) 56.8 % 47-70 [facility] Nucleated red blood cell per centageOrdered By: ED PROVIDER on 08-31-2024 Nucleated RBC/100 WBC (Bld) [Ratio] 0 % 0-5 [facility] Platelet countOrdered By: ED PROVIDER on 08-31-2024 Platelets (Bld) [#/Vol] 260 10*3/uL 150-450 [facility] Potassium measurement (mass/ volume)Ordered By: ED PROVIDER on 08-31-2024 Potassium (Unsp spec) [Mass/Vol] 3.4 mmol/L 3.3-5.1 [facility] ,Serum,hCG Quali.on 08-31-2024 HCG, SERUM QUAL Negative Normal [facility] Comment on above: Performed By: #### L 100.0100, L501.2450, L500.4050, L700.6800 #### [facility] [place], [address] RBC Auto (Bld) [#/Vol]Ordere d By: ED PROVIDER on 08-31-2024 RBC (Bld) [#/Vol] 5.16 10*6/uL 4.2-5.4 [facility] Serum beta-hCG test, qualita tiveOrdered By: ED PROVIDER on 08-31-2024 Beta HCG ( test) Ql Negative [facility] Serum creatinine measurement (mass/volume)Ordered By: ED PROVIDER on 08-31-2024 Creatinine [Mass/Vol] 0.72 mg/dL 0.70-1.20 [facility] Serum globulin measurementOr dered By: ED PROVIDER on 08-31-2024 Globulin (S) [Mass/Vol] 3.3 g/dL 2.2-4.2 [facility] Serum glucose measurement (m ass/volume)Ordered By: ED PROVIDER on 08-31-2024 Glucose [Mass/Vol] 80 mg/dL 70-99 [facility] Serum or plasma alanine gtz otransferase (ALT) measurementOrdered By: ED PROVIDER on 08-31-2024 ALT [Catalytic activity/Vol] 18 U/L <35 [facility] Serum or plasma albumin eran urement (mass/volume)Ordered By: ED PROVIDER on 08-31-2024 Albumin [Mass/Vol] 4.6 g/dL 3.5-5.0 [facility] Serum or plasma albumin/glob ulin mass ratioOrdered By: ED PROVIDER on 08-31-2024 Albumin/Globulin [Mass ratio] 1.4 {ratio} 0.9-2.4 [facility] Serum or plasma alkaline demetrius sphatase measurementOrdered By: ED PROVIDER on 08-31-2024 ALP [Catalytic activity/Vol] 68 U/L 35-104 [facility] Serum or plasma calcium eran urement (mass/volume)Ordered By: ED PROVIDER on 08-31-2024 Calcium [Mass/Vol] 9.2 mg/dL 7.6-11.0 [facility] Serum or plasma urea nitroge n measurement (mass/volume)Ordered By: ED PROVIDER on 08-31-2024 Urea nitrogen [Mass/Vol] 7 mg/dL 4-19 [facility] Sodium levelOrdered By: PASCUAL SIMS on 08-31-2024 Sodium [Moles/Vol] 138 mmol/L 133-145 [facility] Total proteinOrdered By: ED PROVIDER on 08-31-2024 Protein [Mass/Vol] 7.9 g/dL 5.9-8.4 [facility] White blood cell (WBC) count Ordered By: ED PROVIDER on 08-31-2024 WBC (Bld) [#/Vol] 10.0 10*3/uL [facility] CNCOon 08-30-2024 CNCO Letter Text Normal [facility] CNPNon 08-30-2024 CNPN Telephone (HEMAPOB) JERRICA SUGGS ([id number]) 1995 F Date Time Provider Department 08/30/24 BAKARI SILVA HEMANG During your visit today, we recorded the following information about you: Tamie Whitney MA 08/30/2024 9:54 AM Signed 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 She states that she will go home and dose her DDAVP to help control this but it gives her massive headaches and unable to drive while doing this. Can we get a letter for today, since Dr Silva is out of office this week? UZMA Castellon Sherry L, PA-C 08/30/2024 10:09 AM Signed I sent letter to your inbox. Thanks Tamie Whitney MA 08/30/2024 10:46 AM Signed Letter sent to patients MyChart via her request. UZMA Castellon Katelyn, RN 08/31/2024 8:49 AM Signed Patient called in, she took the DDAVP and the bleeding has lessened but not stopped. She said its still a decent amount of blood when she is having diarrhea, she has had 5 bouts in the last 24 hours. What are the next steps? NEYMAR Randle Sherry L, PA-C 08/31/2024 9:26 AM Signed Addended by: JANET FERRELL on: 08/31/2024 09:26 AM Modules accepted: Orders Janet Ferrell PA-C 08/31/2024 9:28 AM Signed I discussed with Dr Oconnor and we reviewed her panel from May that was normal. Lets have her get another panel drawn, orders have placed. She needs to follow up with [facility] and please give her an appointment to see Dr Silva in about 2 weeks when the panel will be reported. thanks Bushra Zamora RN 08/31/2024 10:18 AM Addendum Patient said that she has spoke with GI about this and they say its just irritation from IBS causing the bleeding. She is concerned about waiting to see Dr. Oconnor d/t the bleeding that she continues to have. 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 Patient needs to get blood work done at [facility], faxed lab order fo [phone] NEYMAR Randle Sherry L, PA-C 08/31/2024 10:36 AM Signed Again, her last levels were normal. We have to wait for her new levels to come back, if they are abnormal then we may have to give her IV infusion here but we can not make that decision without the labs. This is per Bushra Kasper RN 08/31/2024 10:44 AM Signed Can you write her another excuse note for school.? NEYMAR Randle Sherry L, PA-C 08/31/2024 11:24 AM Signed How many days does she need? Bushra Zamora RN 08/31/2024 11:26 AM Signed She said for today and tomorrow. NEYMAR Randle Sherry L, PA-C 08/31/2024 11:58 AM Signed I sent the letter to your inbox. Allergies As of Date: 08/30/2024 Noted Allergy Reaction ALUMINUM ASPIRIN 03/25/2012 14 - Other: See Comments IBUPROFEN 03/25/2012 16 - Unknown 14 - Other: See Comments Comments: Due to having a bleeding disorder ASPIRIN 12/05/2012 14 - Other: See Comments Comments: Bleeding disorder HYDROCODONE-ACETAMINOPHEN 02/15/2017 16 - Unknown NSAIDS (NON-STEROIDAL ANTI-INFLAM*12/05/2012 14 - Other: See Comments Comments: Bleeding disorder DICYCLOMINE 06/16/2023 14 - Other: See Comments Date Reviewed: 04/10/2024 Reviewed by: Dmitry Galvan APRN.CHILD DAY CARE TEACHER - Fully Assessed Primary Visit Diagnosis:Von Willebrand disease (HCC) [D68.00] Other Visit Diagnosis:Rectal bleeding [K62.5] Order(s):VON WILLEBRAND DX PANEL [SQVWFPN] Order #: [id number] FUTURE Prescriptions as of 08/31/2024 - aminocaproic acid (AMICAR) 250 mg/mL (25 %) solution Take 20 mL by mouth every 6 hours as needed (bleeding). - doxycycline hyclate (VIBRAMYCIN) 100 mg capsule Take 1 capsule by mouth every 12 hours. - escitalopram oxalate (LEXAPRO) 20 mg tablet Take 1 tablet by mouth every afternoon. - albuterol HFA (PROVENTIL HFA, VENTOLIN HFA) 90 mcg/actuation inhaler Inhale 2 Puffs as instructed every 6 hours as needed for wheezing/shortness of breath. - venlafaxine ER (EFFEXOR XR) 150 mg 24 hr capsule - venlafaxine ER (EFFEXOR XR) 37.5 mg 24 hr capsule Take 37.5 mg by mouth. - omeprazole (PRILOSEC) 20 mg capsule Take 1 capsule by mouth once daily. - ondansetron orally disintegrating (ZOFRAN ODT) 8 mg disintegrating tablet Take 1 tablet by mouth every 8 hours as needed for nausea/vomiting. - tranexamic acid (LYSTEDA) 650 mg tablet Take 2 tablets by mouth every 8 hours for 3 days, THEN 2 tablets every 8 hours as needed (Visible GI bleeding) for up to 4 days. - acetaminophen (TYLENOL) 325 mg tablet Take by mouth as directed. - aluminum chloride (DRYSOL) 20 % external solution - hyoscyamine sublingual (LEVSIN/SL) 0.125 mg Dissolve 1 tablet under the tongue every 4 hours as needed. - promethazine (PHENERGAN) 12.5 mg tablet Take 1 (more content not included)... Normal [facility] CULTURE, URINE, ROUTINEon CULTURE, URINE, ROUTINE SEE NOTE Normal [facility] Comment on above: Order Comment: 0 Result Comment: CULTURE, URINE, ROUTINE Micro Number: [id number] Test Status: Final Specimen Source: Urine, clean catch Specimen Quality: Adequate Result: No Growth Performed By: #### 3 95 #### [facility] [address] [place] [address], [address] [place] [address] Machine Oiler: Rafael Austin 07-06-2024 TREVN Telephone (AGGASTW) JERRICA SUGGS ([id number]) 1995 F Date Time Provider Department 07/06/24 ESTEBAN SARMIENTO AGGASTRobert During your visit today, we recorded the following information about you: Hiren Mendez 07/06/2024 2:33 PM Signed Called to get pt booked based on referral pt wants near [facility] lives Hiren Mendez Allergies As of Date: 07/06/2024 Noted Allergy Reaction ALUMINUM ASPIRIN 03/25/2012 14 - Other: See Comments IBUPROFEN 03/25/2012 16 - Unknown 14 - Other: See Comments Comments: Due to having a bleeding disorder ASPIRIN 12/05/2012 14 - Other: See Comments Comments: Bleeding disorder HYDROCODONE-ACETAMINOPHEN 02/15/2017 16 - Unknown NSAIDS (NON-STEROIDAL ANTI-INFLAM*12/05/2012 14 - Other: See Comments Comments: Bleeding disorder DICYCLOMINE 06/16/2023 14 - Other: See Comments Date Reviewed: 04/10/2024 Reviewed by: Dmitry Galvan APRN.CHILD DAY CARE TEACHER - Fully Assessed Reason for Visit: Appointment [186] Prescriptions as of 07/06/2024 - aminocaproic acid (AMICAR) 250 mg/mL (25 %) solution Take 20 mL by mouth every 6 hours as needed (bleeding). - doxycycline hyclate (VIBRAMYCIN) 100 mg capsule Take 1 capsule by mouth every 12 hours. - escitalopram oxalate (LEXAPRO) 20 mg tablet Take 1 tablet by mouth every afternoon. - albuterol HFA (PROVENTIL HFA, VENTOLIN HFA) 90 mcg/actuation inhaler Inhale 2 Puffs as instructed every 6 hours as needed for wheezing/shortness of breath. - venlafaxine ER (EFFEXOR XR) 150 mg 24 hr capsule - venlafaxine ER (EFFEXOR XR) 37.5 mg 24 hr capsule Take 37.5 mg by mouth. - omeprazole (PRILOSEC) 20 mg capsule Take 1 capsule by mouth once daily. - ondansetron orally disintegrating (ZOFRAN ODT) 8 mg disintegrating tablet Take 1 tablet by mouth every 8 hours as needed for nausea/vomiting. - tranexamic acid (LYSTEDA) 650 mg tablet Take 2 tablets by mouth every 8 hours for 3 days, THEN 2 tablets every 8 hours as needed (Visible GI bleeding) for up to 4 days. - acetaminophen (TYLENOL) 325 mg tablet Take by mouth as directed. - aluminum chloride (DRYSOL) 20 % external solution - hyoscyamine sublingual (LEVSIN/SL) 0.125 mg Dissolve 1 tablet under the tongue every 4 hours as needed. - promethazine (PHENERGAN) 12.5 mg tablet Take 1 tablet by mouth every 6 hours as needed. Problem List As Of Date 07/06/2024 Noted Resolved Von Willebrand disease Type I [D68.00] Encounter for preoperative assessment [Z01.818] 09/04/2022 Encounter Status:Closed by HIREN MENDEZ on 07/06/24 [facility] CBC W Auto Differential pane l (Bld)on 06-19-2024 Basophils (Bld) [#/Vol] 0.05 10*3/uL [facility] Basophils/100 WBC (Bld) 0.7 % [facility] Differential cell count method Nom (Bld) Auto [facility] Eosinophils (Bld) [#/Vol] 0.66 10*3/uL High [facility] Eosinophils/100 WBC (Bld) 8.8 % [facility] Erythrocyte distribution width (RBC) [Ratio] 11.9 % 11.5 - 15.0 % [facility] Hematocrit (Bld) [Volume fraction] 42.1 % 36.0 - 46.0 % [facility] Hemoglobin (Bld) [Mass/Vol] 14.4 g/dL 11.5 - 15.5 g/dL [facility] Immature granulocytes (Bld) [#/Vol] [facility] Immature granulocytes/100 WBC (Bld) 0.3 % [facility] Interpretation and review of laboratory results Abnormal [facility] Lymphocytes (Bld) [#/Vol] 2.34 10*3/uL [facility] Lymphocytes/100 WBC (Bld) 31 % [facility] MCH (RBC) [Entitic mass] 30 pg 26.0 - 34.0 pg [facility] MCHC (RBC) [Mass/Vol] 34.2 g/dL 30.5 - 36.0 g/dL [facility] MCV (RBC) [Entitic vol] 87.7 fL 80.0 - 100.0 fL [facility] Monocytes (Bld) [#/Vol] 0.6 10*3/uL [facility] Monocytes/100 WBC (Bld) 8 % [facility] Neutrophils (Bld) [#/Vol] 3.87 10*3/uL [facility] Neutrophils/100 WBC (Bld) 51.2 % [facility] Nucleated RBC (Bld) [#/Vol] [facility] Nucleated RBC/100 WBC (Bld) [Ratio] 0 % /100 WBC [facility] Platelet mean volume (Bld) [Entitic vol] 10.4 fL 9.0 - 12.7 fL [facility] Platelets (Bld) [#/Vol] 279 10*3/uL [facility] RBC (Bld) [#/Vol] 4.8 10*6/uL 3.90 - 5.20 m/uL [facility] WBC (Bld) [#/Vol] 7.54 10*3/uL [facility] Basophils (Bld) [#/Vol] 0.05 10*3/uL Normal <0.11 [facility] Comment on above: Order Comment: Speci men Type: BLOOD SPECIMEN Ordering Facility: [facility] Address: [address] [place] [address] Performed By: #### 5 7021-8 #### [facility] CLIA [id number] [address] [place] [address] [place] Basophils/100 WBC (Bld) 0.7 % Normal [facility] Comment on above: Order Comment: Speci men Type: BLOOD SPECIMEN Ordering Facility: [facility] Address: [address] [place] [address] Performed By: #### 5 7021-8 #### [facility] CLIA [id number] [address] [place] [address] [place] Differential cell count method Nom (Bld) Auto Normal [facility] Comment on above: Order Comment: Speci men Type: BLOOD SPECIMEN Ordering Facility: [facility] Address: [address] [place] [address] Performed By: #### 5 7021-8 #### [facility] CLIA [id number] [address] [place] [address] [place] Eosinophils (Bld) [#/Vol] 0.66 10*3/uL High <0.46 [facility] Comment on above: Order Comment: Speci men Type: BLOOD SPECIMEN Ordering Facility: [facility] Address: [address] [place] [address] Performed By: #### 5 7021-8 #### [facility] CLIA [id number] [address] [place] [address] [place] Eosinophils/100 WBC (Bld) 8.8 % Normal [facility] Comment on above: Order Comment: Speci men Type: BLOOD SPECIMEN Ordering Facility: [facility] Address: [address] [place] [address] Performed By: #### 5 7021-8 #### [facility] CLIA [id number] [address] [place] [address] [place] Erythrocyte distribution width (RBC) [Ratio] 11.9 % Normal 11.5-15.0 [facility] Comment on above: Order Comment: Speci men Type: BLOOD SPECIMEN Ordering Facility: [facility] Address: [address] [place] [address] Performed By: #### 5 7021-8 #### [facility] CLIA [id number] [address] [place] [address] [place] Hematocrit (Bld) [Volume fraction] 42.1 % Normal 36.0-46.0 [facility] Comment on above: Order Comment: Speci men Type: BLOOD SPECIMEN Ordering Facility: [facility] Address: [address] [place] [address] Performed By: #### 5 7021-8 #### [facility] CLIA [id number] [address] [place] [address] [place] Hemoglobin (Bld) [Mass/Vol] 14.4 g/dL Normal 11.5-15.5 [facility] Comment on above: Order Comment: Speci men Type: BLOOD SPECIMEN Ordering Facility: [facility] Address: [address] [place] [address] Performed By: #### 5 7021-8 #### [facility] CLIA [id number] [address] [place] [address] [place] Immature granulocytes (Bld) [#/Vol] 10*3/uL Normal <0.10 [facility] Comment on above: Order Comment: Speci men Type: BLOOD SPECIMEN Ordering Facility: [facility] Address: [address] [place] [address] Performed By: #### 5 7021-8 #### [facility] CLIA [id number] [address] [place] [address] [place] Immature granulocytes/100 WBC (Bld) 0.3 % Normal [facility] Comment on above: Order Comment: Speci men Type: BLOOD SPECIMEN Ordering Facility: [facility] Address: [address] [place] [address] Performed By: #### 5 7021-8 #### [facility] CLIA [id number] [address] [place] [address] [place] Lymphocytes (Bld) [#/Vol] 2.34 10*3/uL Normal 1.00-4.00 [facility] Comment on above: Order Comment: Speci men Type: BLOOD SPECIMEN Ordering Facility: [facility] Address: [address] [place] [address] Performed By: #### 5 7021-8 #### [facility] CLIA [id number] [address] [place] [address] [place] Lymphocytes/100 WBC (Bld) 31.0 % Normal [facility] Comment on above: Order Comment: Speci men Type: BLOOD SPECIMEN Ordering Facility: [facility] Address: [address] [place] [address] Performed By: #### 5 7021-8 #### [facility] CLIA [id number] [address] [place] [address] [place] MCH (RBC) [Entitic mass] 30.0 pg Normal 26.0-34.0 [facility] Comment on above: Order Comment: Speci men Type: BLOOD SPECIMEN Ordering Facility: [facility] Address: [address] [place] [address] Performed By: #### 5 7021-8 #### [facility] CLIA [id number] [address] [place] [address] [place] MCHC (RBC) [Mass/Vol] 34.2 g/dL Normal 30.5-36.0 [facility] Comment on above: Order Comment: Speci men Type: BLOOD SPECIMEN Ordering Facility: [facility] Address: [address] [place] [address] Performed By: #### 5 7021-8 #### [facility] CLIA [id number] [address] [place] [address] [place] MCV (RBC) [Entitic vol] 87.7 fL Normal 80.0-100.0 [facility] Comment on above: Order Comment: Speci men Type: BLOOD SPECIMEN Ordering Facility: [facility] Address: [address] [place] [address] Performed By: #### 5 7021-8 #### [facility] CLIA [id number] [address] [place] [address] [place] Monocytes (Bld) [#/Vol] 0.60 10*3/uL Normal <0.87 [facility] Comment on above: Order Comment: Speci men Type: BLOOD SPECIMEN Ordering Facility: [facility] Address: [address] [place] [address] Performed By: #### 5 7021-8 #### [facility] CLIA [id number] [address] [place] [address] [place] Monocytes/100 WBC (Bld) 8.0 % Normal [facility] Comment on above: Order Comment: Speci men Type: BLOOD SPECIMEN Ordering Facility: [facility] Address: [address] [place] [address] Performed By: #### 5 7021-8 #### [facility] CLIA [id number] [address] [place] [address] [place] Neutrophils (Bld) [#/Vol] 3.87 10*3/uL Normal 1.45-7.50 [facility] Comment on above: Order Comment: Speci men Type: BLOOD SPECIMEN Ordering Facility: [facility] Address: [address] [place] [address] Performed By: #### 5 7021-8 #### [facility] CLIA [id number] [address] [place] [address] [place] Neutrophils/100 WBC (Bld) 51.2 % Normal [facility] Comment on above: Order Comment: Speci men Type: BLOOD SPECIMEN Ordering Facility: [facility] Address: [address] [place] [address] Performed By: #### 5 7021-8 #### [facility] CLIA [id number] [address] [place] [address] [place] Nucleated RBC (Bld) [#/Vol] 10*3/uL Normal <0.01 [facility] Comment on above: Order Comment: Speci men Type: BLOOD SPECIMEN Ordering Facility: [facility] Address: [address] [place] [address] Performed By: #### 5 7021-8 #### [facility] CLIA [id number] [address] [place] [address] [place] Nucleated RBC/100 WBC (Bld) [Ratio] 0.0 /100 WBC Normal [facility] Comment on above: Order Comment: Speci men Type: BLOOD SPECIMEN Ordering Facility: [facility] Address: [address] [place] [address] Performed By: #### 5 7021-8 #### [facility] CLIA [id number] [address] [place] [address] [place] Platelet mean volume (Bld) [Entitic vol] 10.4 fL Normal 9.0-12.7 [facility] Comment on above: Order Comment: Speci men Type: BLOOD SPECIMEN Ordering Facility: [facility] Address: [address] [place] [address] Performed By: #### 5 7021-8 #### [facility] CLIA [id number] [address] [place] [address] [place] Platelets (Bld) [#/Vol] 279 10*3/uL Normal 150-400 [facility] Comment on above: Order Comment: Speci men Type: BLOOD SPECIMEN Ordering Facility: [facility] Address: [address] [place] [address] Performed By: #### 5 7021-8 #### [facility] CLIA [id number] [address] [place] [address] [place] RBC (Bld) [#/Vol] 4.80 10*6/uL Normal 3.90-5.20 [facility] Comment on above: Order Comment: Speci men Type: BLOOD SPECIMEN Ordering Facility: [facility] Address: [address] [place] [address] Performed By: #### 5 7021-8 #### [facility] CLIA [id number] [address] [place] [address] [place] WBC (Bld) [#/Vol] 7.54 10*3/uL Normal 3.70-11.00 [facility] Comment on above: Order Comment: Speci men Type: BLOOD SPECIMEN Ordering Facility: [facility] Address: [address] [place] [address] Performed By: #### 5 7021-8 #### [facility] CLIA [id number] [address] [place] [address] [place] CNCOon 06-19-2024 CNCO Letter Text Normal [facility] CNPNon 06-19-2024 CNPN Telephone (HEMAGRE) JERRICA SUGGS ([id number]) 1995 F Date Time Provider Department 06/19/24 BAKARI SILVA During your visit today, we recorded the following information about you: Bushra Zamora, RN 06/19/2024 10:42 AM Signed patient called in this morning reporting rectal bleeding, bright red, she said its a decent amount of blood. happens with and without bowel movements. she [place] PCP [place], please advise (she is sending a picture of the toilet in a min, its a pic from yesterday) she does not have a GI doctor either. Message sent to Dr. Silva on bubble chat. NEYMAR Randle Judy, MD 06/19/2024 10:31 AM Signed From a hematological perspective, I have ordered repeat von willebrand levels and CBC which I would advise her to have drawn. If the levels are low, we can arrange for factor infusion, but not before the results come back. Would she like a refill of Amicar or Lysteda to take as needed for bleeding? Even if PCP is out of state, there should be a PCP covering- please advise to see if she can see the covering provider in the interim. I can refer her to GI but the wait time will be weeks before she can see someone for endoscopic evaluation. She was seen by GI (see note 10/01/22) previously , can she call them for a follow-up? How long has she had rectal bleeding for, and when was the last time she experienced bleeding before this episode? Last I heard about rectal bleeding from Jerrica was in 09/2022. Bushra Zamora RN 06/19/2024 10:42 AM Signed Called patient, she will get lab work drawn, she would like medication for bleeding and GI consult. NEYMAR Randle Judy, MD 06/22/2024 6:40 AM Signed I cannot tell based on the last note in this message thread whether she prefers Amicar or Lysteda, so I will renew the latest which was Amicar. Please let patient know that a GI consult has been placed. Please let her know that her labs show normal von Willebrand level, so I would not prescribe factors at this time. Please make sure to ask the questions I mentioned on 06/19- when was the last rectal bleeding episode before this week? The GI referral will be back to the group at [facility]- is she able to call them also to expedite (a follow-up appointment may be easier to obtain than a new referral)? Bushra Zamora RN 06/22/2024 8:34 AM Addendum She started with the rectal bleeding last Wednesday and last episode was yesterday. She will reach out to GI to schedule. She will also miner pick the amicar. GI consult faxed. Bushra Zamora RN Allergies As of Date: 06/19/2024 Noted Allergy Reaction ALUMINUM ASPIRIN 03/25/2012 14 - Other: See Comments IBUPROFEN 03/25/2012 16 - Unknown 14 - Other: See Comments Comments: Due to having a bleeding disorder ASPIRIN 12/05/2012 14 - Other: See Comments Comments: Bleeding disorder HYDROCODONE-ACETAMINOPHEN 02/15/2017 16 - Unknown NSAIDS (NON-STEROIDAL ANTI-INFLAM*12/05/2012 14 - Other: See Comments Comments: Bleeding disorder DICYCLOMINE 06/16/2023 14 - Other: See Comments Date Reviewed: 04/10/2024 Reviewed by: Dmitry Galvan APRN.CHILD DAY CARE TEACHER - Fully Assessed Primary Visit Diagnosis:Von Willebrand disease (HCC) [D68.00] Other Visit Diagnosis:Rectal bleeding [K62.5] Order(s):VON WILLEBRAND DX PANEL [SQVWFPN] Order #: [id number] FUTURE COMPLETE BLOOD COUNT AND DIFFERENTIAL [SQCBCDIF] Order #: [id number] FUTURE VON WILLEBRAND DX PNL (LIMITED) [SQVWFPR] Order #: [id number] FUTURE aminocaproic acid (AMICAR) 250 mg/mL (25 %) solutionTake 20 mL by mouth every 6 hours as needed (bleeding).Disp: 473 mLRfl: 1 CONSULT TO GASTROENTEROLOGY [9010] Order #: [id number]: 1 FUTURE Prescriptions as of 06/22/2024 - aminocaproic acid (AMICAR) 250 mg/mL (25 %) solution Take 20 mL by mouth every 6 hours as needed (bleeding). - doxycycline hyclate (VIBRAMYCIN) 100 mg capsule Take 1 capsule by mouth every 12 hours. - escitalopram oxalate (LEXAPRO) 20 mg tablet Take 1 tablet by mouth every afternoon. - albuterol HFA (PROVENTIL HFA, VENTOLIN HFA) 90 mcg/actuation inhaler Inhale 2 Puffs as instructed every 6 hours as needed for wheezing/shortness of breath. - venlafaxine ER (EFFEXOR XR) 150 mg 24 hr capsule - venlafaxine ER (EFFEXOR XR) 37.5 mg 24 hr capsule Take 37.5 mg by mouth. - omeprazole (PRILOSEC) 20 mg capsule Take 1 capsule by mouth once daily. - ondansetron orally disintegrating (ZOFRAN ODT) 8 mg disintegrating tablet Take 1 tablet by mouth every 8 hours as needed for nausea/vomiting. - tranexamic acid (LYSTEDA) 650 mg tablet Take 2 tablets by mouth every 8 hours for 3 days, THEN 2 tablets every 8 hours as needed (Visible GI bleeding) for up to 4 days. - acetaminophen (TYLENOL) 325 mg tablet Take by mouth as directed. - aluminum chloride (DRYSOL) 20 % external solution - hyoscyamine sublingual (more content not included)... [facility] [facility] PT panel Coag (PPP)on 2024 INR Coag (PPP) [Relative time] 1.0 {INR} Normal 0.9-1.3 [facility] Comment on above: Order Comment: Speci men Type: BLOOD SPECIMEN Ordering Facility: [facility] Address: [address] [place] [address] Result Comment: Dea min K Antagonist (VKA) Therapeutic Range: INR 2 to 3 (Target INR of 2.5) Note: For patients treated with VKA drugs, such as warfarin, the [place] [employer] 2012 Guideline recommends a therapeutic INR range of 2 to 3 (target INR of 2.5). This recommendation includes high-risk patients with antiphospholipid syndrome with previous arterial or venous thromboembolism, current-generation mechanical or bioprosthetic aortic heart valve replacement. Note: Patients with mechanical aortic valve replacement and additional risk factors for thromboembolic events (atrial fibrillation, previous thromboembolism, LV dysfunction, hypercoagulable conditions) or an older generation mechanical AVR (i.e., ball in-Cage) or any mechanical MVR should have a INR therapeutic range of 2.5 to 3.5 (target INR of 3). Ramonita GH, et al. Chest 2012, 141:7S-47S Brant RA, et al. JAC 2017, 70: 252-289 Performed By: #### 3 4528-0, 75387-4 #### [facility] CLIA [id number] [address] [place] [address] [place] PT Coag (PPP) [Time] 11.0 s Normal 9.7-13.0 [facility] Comment on above: Order Comment: Gian cornell Type: BLOOD SPECIMEN Ordering Facility: [facility] Address: [address] [place] [address] Performed By: #### 3 4528-0, 46049-6 #### [facility] CLIA [id number] [address] [place] [address] [place] VON WILLEBRAND DX PNL REFon 06-19-2024 Bound rFVIII/vWf Ag IA (P) [Relative ratio] 0.8 Normal >=0.5 [facility] Comment on above: Order Comment: Gian cornell Type: BLOOD SPECIMEN Ordering Facility: [facility] Address: [address] [place] [address] Performed By: #### V CAROLINE, [id number] #### [facility] CLIA [id number] [address] [place] [address] [place] Coagulation factor VIII activity actual/normal Coag (PPP) [Relative time] 60 % Normal 50-173 [facility] Comment on above: Order Comment: Gian cornell Type: BLOOD SPECIMEN Ordering Facility: [facility] Address: [address] [place] [address] Performed By: #### Kenrick VELAZQUEZ, [id number] #### [facility] CLIA [id number] [address] [place] [address] [place] GPIBM ACTIVITY 72 % Normal 44-156 [facility] Comment on above: Order Comment: Gian cornell Type: BLOOD SPECIMEN Ordering Facility: [facility] Address: [address] [place] [address] Result Comment: This test was developed, and its performance characteristics determined by the [facility] Department of Pathology and Laboratory Medicine. It has not been cleared or approved by the FDA. The [facility] Department of Pathology and Laboratory Medicine is regulated under CLIA as qualified to perform high-complexity testing. This test is used for clinical purposes. It should not be regarded as investigational or for research. Performed By: #### V OLIVERP, [id number] #### [facility] CLIA [id number] [address] [place] [address] [place] vWf Ag actual/normal IA (PPP) [Relative mass conc] 74 % Normal 50-173 [facility] Comment on above: Order Comment: Speci kraig Type: BLOOD SPECIMEN Ordering Facility: [facility] Address: [address] [place] [address] Performed By: #### Kenrick VELAZQUEZ [id number] #### [facility] CLIA [id number] [address] [place] [address] [place] vWf multimers Ql (PPP) Normal [facility] Comment on above: Order Comment: Speci men Type: BLOOD SPECIMEN Ordering Facility: [facility] Address: [address] [place] [address] Result Comment: Assa y of von Willebrand multimers was performed by an agarose gel electrophoresis followed by immunofixation with anti-von Willebrand factor antiserum. There is a normal multimer distribution with low intensity of bands. Reviewed by Lalita Figueroa M.D., Ph.D. This test was developed, and its performance characteristics determined by the [facility] Department of Pathology and Laboratory Medicine. It has not been cleared or approved by the FDA. The [facility] Department of Pathology and Laboratory Medicine is regulated under CLIA as qualified to perform high-complexity testing. This test is used for clinical purposes. It should not be regarded as investigational or for research. Performed By: #### Kenrick VELAZQUEZ [id number] #### [facility] CLIA [id number] [address] [place] [address] [place] vWf ristocetin cofactor act/vWf Ag (PPP) [Ratio] 1.0 Normal >=0.5 [facility] Comment on above: Order Comment: Speci kraig Type: BLOOD SPECIMEN Ordering Facility: [facility] Address: [address] [place] [address] Performed By: #### Kenrick VELAZQUEZ [id number] #### [facility] CLIA [id number] [address] [place] [address] [place] vWf.collagen binding activity actual/normal IA (PPP) [Relative ratio] 60 % Normal 41-161 [facility] Comment on above: Order Comment: Gian cornell Type: BLOOD SPECIMEN Ordering Facility: [facility] Address: [address] [place] [address] Result Comment: This test was developed, and its performance characteristics determined by the [facility] Department of Pathology and Laboratory Medicine. It has not been cleared or approved by the FDA. The [facility] Department of Pathology and Laboratory Medicine is regulated under CLIA as qualified to perform high-complexity testing. This test is used for clinical purposes. It should not be regarded as investigational or for research. Performed By: #### Kenrick VELAZQUEZ, [id number] #### [facility] CLIA [id number] [address] [place] [address] [place] vWf.collagen binding activity/vWf Ag IA (PPP) [Ratio] 0.8 Normal >=0.6 [facility] Comment on above: Order Comment: Gian cornell Type: BLOOD SPECIMEN Ordering Facility: [facility] Address: [address] [place] [address] Performed By: #### Kenrick VELAZQUEZ, [id number] #### [facility] CLIA [id number] [address] [place] [address] [place] VWF DX PNL (VWFPR) INTERPon 06-19-2024 Pathologist name Reviewed by Elidia lane DO, MPH Normal [facility] Comment on above: Order Comment: Gian cornell Type: BLOOD SPECIMEN Ordering Facility: [facility] Address: [address] [place] [address] Performed By: #### Kenrick BOYDP, [id number] #### [facility] CLIA [id number] [address] [place] [address] [place] von Willebrand evaluation (PPP) [Interp] Normal [facility] Comment on above: Order Comment: Gian cornell Type: BLOOD SPECIMEN Ordering Facility: [facility] Address: [address] [place] [address] Result Comment: Godfrey al - see comment below. Laboratory testing was performed to evaluate the presence of von Willebrand disease. The PT and APTT values are both within the normal range. VON WILLEBRAND TESTING: The von Willebrand factor (VWF) antigen, VWF functional activity (GpIbM and collagen binding activity) and factor VIII results are normal and proportional. The von Willebrand multimer assay was performed by an agarose gel electrophoresis followed by immunofixation with anti-von Willebrand factor antiserum. There is a normal multimer distribution with low intensity of bands. SUMMARY: There is no laboratory evidence for von Willebrand disease at this time. If there is a high clinical suspicion for Von Willebrand Disease, suggest repeating the von Willebrand panel in one to two months, as VWF levels may fluctuate. Corrected results: Previously reported on 06/27/2024 at 7:04 AM EST. Performed By: #### V [facility], [id number] #### [facility] CLIA [id number] [address] [place] [address] [place] aPTT PPPon 06-19-2024 aPTT Coag (PPP) [Time] 31.9 s Normal 23.0-32.4 [facility] Comment on above: Order Comment: Speci men Type: BLOOD SPECIMEN Ordering Facility: [facility] Address: [address] [place] [address] Result Comment: Froz en Plasma Aliquot Performed By: #### 3 4528-0, 66142-9 #### [facility] CLIA [id number] [address] [place] [address] [place] CULTURE, URINE, ROUTINEon CULTURE, URINE, ROUTINE SEE NOTE Normal [facility] Comment on above: Order Comment: 0 Result Comment: CULTURE, URINE, ROUTINE Micro Number: [id number] Test Status: Final Specimen Source: Urine Specimen Quality: Adequate Result: No Growth Performed By: #### 3 95 #### [facility] [address] [place] [address], [address] [place] [address] Machine Oiler: Rafael Lundberg MD 36on 06-05-2024 36 S: Patient spoke wit h CAC nurse regarding Flank Pain, low grade fever, Frequent urination -Callback B: Onset of symptoms/concern Unknown A: No answer upon callback. Message left for patient to return call to office for further questions or concerns. R: No contact call. RN will send TE to office for follow up. Reason for Disposition Message left on unidentified voice mail. Phone number verified. Protocols used: No Contact or Duplicate Contact Oygq-CFHGI-YD [facility] Urine Cultureon 06-02-2024 [facility] Mixed Gram Positive Organisms Perry Count 11,000-25,000 MIXC Mixed contaminants. Submit a new specimen if indicated. Normal [facility] Comment on above: Performed By: #### M 100.2200 #### [facility] [address] [facility] [address] [place], [place], [address] Abdomen/Pelvis W IV Cont ONL Yon 05-31-2024 Abdomen/Pelvis W IV Cont ONLY [facility] Services [address] [place], [place] [address] Abdomen/Pelvis W IV Cont ONLY MR#: [id number] Acct: [id number] Name: JERRICA SUGGS Rep #: [id number] : 1995 F 29 From: Saroj deal MD PCP: Dr. Nunu Cortez MD Status: REG ER Study: Abdomen/Pelvis W IV Cont ONLY Date of Exam: Exam# [id number] Ordering Dr: Alonzo Argueta DO PROCEDURE: ABDOMEN/PELVIS W IV CONT ONLY REASON FOR EXAM: Nausea and vomiting and diarrhea since Wednesday. TECHNIQUE: Abdomen and pelvis CT with intravenous contrast. Oral contrast was also used. IV CONTRAST: 100 cc of Isovue-300. COMPARISON: Comparison is made with prior study dated March 14, 2023. FINDINGS: Lung bases: Clear Liver: Unremarkable. Gallbladder: Surgically absent. Spleen: Unremarkable. Pancreas: Unremarkable. Adrenals: Unremarkable. Kidneys: Unremarkable. Bladder: Unremarkable. Reproductive Organs: IUD is seen within the uterus. Bowel: Fluid and fecal material seen in the right hemicolon. Mildly distended fluid-filled small bowel loops in the left upper quadrant. This may represent localized ileus. Appendix: Normal. Lymph nodes: No suspicious lymph node enlargement. Vasculature: Major vascular structures are unremarkable. Peritoneum / Retroperitoneum: No ascites. No free air. Bones: Unremarkable. CT/Abdomen/Pelvis W IV Cont ONLY IMPRESSION: Mild distended fluid-filled small bowel loops in left upper quadrant. Fluid and fecal material seen in the right hemicolon. The patient is status post cholecystectomy. One or more dose reduction techniques were used (e.g., Automated exposure control, adjustment of the mA and/or kV according to patient size, use of iterative reconstruction technique). Reading Location: [place] [address] CC: Dr. Nunu Cortez MD; Dr. Alonzo Argueta DO Roll Tension Tester: Signed Normal [facility] Absolute lymphocyte countOrd ered By: Alonzo Argueta on 05-31-2024 Lymphocytes Auto (Unsp spec) [#/Vol] 2.26 10*3/uL 0.83-4.51 [facility] Absolute neutrophil countOrd ered By: Alonzo Argueta on 05-31-2024 Neutrophils (Bld) [#/Vol] 4.1 10*3/uL 2.0-7.7 [facility] Albumin to globulin ratioOrd ered By: Alonzo Argueta on 05-31-2024 Albumin/Globulin [Mass ratio] 1.0 {ratio} 0.9-2.4 [facility] Automated lymphocyte count a s percentage of total leukocytesOrdered By: Alonzo Argueta on 05-31-2024 Lymphocytes/100 WBC Auto (Unsp spec) 29.5 % 19-41 [facility] Basophil percentageOrdered B y: Alonzo Argueta on 05-31-2024 Basophils/100 WBC (Bld) 0.8 % 0-1 [facility] Bilirubin Test strip Ql (U)O rdered By: Alonzo Argueta on 05-31-2024 Bilirubin Ql (U) Negative Negative [facility] Bilirubin directOrdered By: Alonzo Argueta on 05-31-2024 Bilirubin.direct [Mass/Vol] 0.11 mg/dL 0.00-0.30 [facility] Bilirubin, totalOrdered By: Alonzo Argueta on 05-31-2024 Bilirubin [Mass/Vol] 0.60 mg/dL 0.20-1.00 [facility] Comment on above: For patients on eltr ombopag therapy, use of Dimension [place] TBIL is not recommended. Blood urea nitrogen (BUN)/cr eatinine ratioOrdered By: Alonzo Argueta on 05-31-2024 Urea nitrogen/Creatinine [Mass ratio] 11.2 mg/mg 10-20 [facility] CBC W/Diff, Automatedon Absolute Lymph 2.26 X10 3/uL Normal 0.83-4.51 [facility] Comment on above: Performed By: #### M 100.637, M1.96 #### [facility] [address] [place], [address] Absolute Neut 4.1 X10 3/uL Normal 2.0-7.7 [facility] Comment on above: Performed By: #### M 100.637, M196 #### [facility] [address] [place], [address] Basophils/100 WBC (Bld) 0.8 % Normal 0-1 [facility] Comment on above: Performed By: #### M 100.637, M1.96 #### [facility] [address] [place], [address] Eosinophils/100 WBC (Bld) 7.6 % High 0-5 [facility] Comment on above: Performed By: #### M 100.637, M1.96 #### [facility] [address] [place], [address] Erythrocyte distribution width (RBC) [Ratio] 11.9 % Normal 11.6-14.6 [facility] Comment on above: Performed By: #### M 100.637, M1.96 #### [facility] [address] [place], [address] Hematocrit (Bld) [Volume fraction] 44.6 % Normal 37-47 [facility] Comment on above: Performed By: #### M 100.637, M196 #### [facility] [address] [place], [address] Hemoglobin (Bld) [Mass/Vol] 15.3 g/dL High 12.0-15.0 [facility] Comment on above: Performed By: #### M 100.637, 96 #### [facility] [address] [place], [address] IG% 0.500 Normal 0.0-0.9 [facility] Comment on above: Result Comment: IG% - Immature Granulocytes (promyelocytes, myelocytes and metamyelocytes) > 1% indicates that a LEFT SHIFT is Present. Performed By: #### M 100.637, #### [facility] [address] [place], [address] Lymphocytes/100 WBC (Bld) 29.5 % Normal 19-41 [facility] Comment on above: Performed By: #### M 100.637, #### [facility] [address] [place], [address] MCH (RBC) [Entitic mass] 30.7 pg Normal 27.0-32.0 [facility] Comment on above: Performed By: #### M 100.637, #### [facility] [address] [place], [address] MCHC (RBC) [Mass/Vol] 34.3 g/dL Normal 32-36 [facility] Comment on above: Performed By: #### M 100.637, 96 #### [facility] [address] [place], [address] MCV (RBC) [Entitic vol] 89.4 fL Normal 81-99 [facility] Comment on above: Performed By: #### M 100.637, #### [facility] [address] [place], [address] Monocytes/100 WBC (Bld) 8.4 % Normal 0-10 [facility] Comment on above: Performed By: #### M 100.637, 96 #### [facility] [address] [place], [address] Neutrophils/100 WBC (Bld) 53.2 % Normal 47-70 [facility] Comment on above: Performed By: #### M 100.637, 96 #### [facility] [address] [place], [address] Nucleated RBC (Bld) [#/Vol] 0 10*3/uL Normal 0-5 [facility] Comment on above: Performed By: #### M 100.637, #### [facility] [address] [place], [address] Platelet mean volume (Bld) [Entitic vol] 10.2 fL Normal 6.2-12.0 [facility] Comment on above: Performed By: #### M 100.637, 96 #### [facility] [address] [place], [address] Platelets (Bld) [#/Vol] 250 10*3/uL Normal 150-450 [facility] Comment on above: Performed By: #### M 100.637, 96 #### [facility] [address] [place], [address] RBC (Bld) [#/Vol] 4.99 10*6/uL Normal 4.2-5.4 [facility] Comment on above: Performed By: #### M 100.637, 96 #### [facility] [address] [place], [address] RDW SD 38.7 fl Normal 35.1-43.9 [facility] Comment on above: Performed By: #### M 100.637, M100.96 #### [facility] [address] [place], [address] WBC (Bld) [#/Vol] 7.7 10*3/uL Normal 4.4-11.0 [facility] Comment on above: Performed By: #### M 100.637, M1.96 #### [facility] [address] [place], [address] CDIFF (PCR)on 05-31-2024 CDIFF Is the patient recei ving laxatives? N New/unexplained onset of 3 or more stools in past 24 hrs? Y Pending 027 027 NAP1-B1 Presumptive Negative *for epidemiolologic???use C. Diff PCR Negative- No toxigenic C. Diff Detected Normal [facility] Comment on above: Performed By: #### M 100.637, M196 #### [facility] [address] [place], [address] Carbon dioxide measurementOr dered By: Alonzo Argueta on 05-31-2024 CO2 [Moles/Vol] 27.0 mmol/L 21.0-32.0 [facility] Chloride measurementOrdered By: Alonzo Argueta on 05-31-2024 Chloride [Moles/Vol] 105 mmol/L 98-107 [facility] Clostridium difficile detect ion by polymerase chain reactionOrdered By: Alonzo Argueta on 05-31-2024 C. difficile DNA MACIEL+probe Ql (Unsp spec) [facility] Comprehensive Metabolic Prof ilon 05-31-2024 Albumin/Globulin [Mass ratio] 1.0 {ratio} Normal 0.9-2.4 [facility] Comment on above: Performed By: #### M 100.637, M100.6796 #### [facility] [address] [place], [address] BUN/CRE 11.2 RATIO Normal 10-20 [facility] Comment on above: Performed By: #### M 100.637, M1.96 #### [facility] [address] [place], [address] CA,Total 9.0 mg/dL Normal 8.5-10.1 [facility] Comment on above: Performed By: #### M 100.637, M1.96 #### [facility] [address] [place], [address] Chloride [Moles/Vol] 105 mmol/L Normal 98-107 [facility] Comment on above: Performed By: #### M 100.637, M196 #### [facility] [address] [place], [address] CO2 [Moles/Vol] 27.0 mmol/L Normal 21.0-32.0 [facility] Comment on above: Performed By: #### M 100.637, 96 #### [facility] [address] [place], [address] Creatinine [Mass/Vol] 0.71 mg/dL Normal 0.55-1.02 [facility] Comment on above: Result Comment: The validity of the calculated GFR GFRAA in patients over 70 years has not been determined. Clinical correlation is essential. Performed By: #### M 100.637, 96 #### [facility] [address] [place], [address] ECRCL 111.87 ml/min Normal [facility] Comment on above: Performed By: #### M 100.637, M196 #### [facility] [address] [place], [address] EST GFR - AA 125 mL/min Normal >60 [facility] Comment on above: Result Comment: Afri can [place] GFR Calc Performed By: #### M 100.637, M196 #### [facility] [address] [place], [address] GAP 6 Normal 5-15 [facility] Comment on above: Performed By: #### M 100.637, M1.96 #### [facility] [address] [place], [address] GFR/1.73 sq M.predicted among non-blacks MDRD (S/P/Bld) [Vol rate/Area] 103 mL/min/{1.73_m2} Normal >60 [facility] Comment on above: Result Comment: Non- GFR Calc Performed By: #### M 100.637, M1.96 #### [facility] [address] [place], [address] Glucose [Mass/Vol] 88 mg/dL Normal 74-106 [facility] Comment on above: Performed By: #### M 100.637, M1.96 #### [facility] [address] [place], [address] Potassium [Moles/Vol] 3.5 mmol/L Normal 3.5-5.1 [facility] Comment on above: Performed By: #### M 100.637, M100.96 #### [facility] [address] [place], [address] Sodium [Moles/Vol] 138 mmol/L Normal 136-145 [facility] Comment on above: Performed By: #### M 100.637, M1.96 #### [facility] [address] [place], [address] Urea nitrogen [Mass/Vol] 8 mg/dL Normal 7-18 [facility] Comment on above: Performed By: #### M 100.637, M100.6796 #### [facility] [address] [place], [address] ENTERIC PATHOGEN PANEL STOOL on 02-05-2025 EP PANEL Is the patient recei ving laxatives? N New/unexplained onset of 3 or more stools in past 24 hrs? Y Normal Reference Range = Not Detected Nucleic acid amplification test method Not detected for Campylobacter group, Salmonella species, Shigella species, Vibrio Group, Yersinia enterocolitica, EHEC (Shiga Toxin 1, Shiga Toxin 2), Norovirus Gl/Gll, and Rotavirus A. Other common stool pathogens are not detected on this panel include: Aeromonas/Plesiomonas or parasites. Order testing for these organisms separately if suspected. This is an amplified DNA test which makes it both specific and sensitive. CAMPYLOBACTER Not Detected Norovirus Not Detected Rotavirus Not Detected Salmonella Not Detected Shiga Toxin Not Detected Shigella sp. Not Detected VIBRIO Not Detected Yersinia Not Detected Normal [facility] Comment on above: Performed By: #### M 100.637, M100.6796 #### [facility] [address] [facility], [address] Emergency Department Summary on 05-31-2024 Emergency Department Summary [facility] Medical Records Department [address] [place] [address] Emergency Department Summary 05/31/24 MR#: [id number] Acct: [id number] Name: JERRICA SUGGS Rep #: [id number] : 1995 29 From: Alonzo [place] PCP: Dr. Nunu Cortez MD Status:REG ER Location: ED HPI HPI - GI History of Present Illness Chief Complaint: Abd Pain Narrative Narrative: History of irritable syndrome status post cholecystectomy August 2023 presents with nausea vomiting diarrhea for last couple days. She does have history of von Willebrand's disease. Intermittent bloody stools. Pain across her upper abdomen. No urinary symptoms. No fevers. States had 3 loose stools today. She has been vomiting only in the mornings. She has seen GI with upper and lower scopes along with gastric emptying test has been negative. She was doing better post her cholecystectomy. No recent antibiotics. Zofran taken at 4 in the morning, still currently nauseated. Last menstrual period the 17th of last month, she does have an IUD. Prior similar symptoms: Yes PFSH PFS Medical History IBS (irritable bowel syndrome) Von Willebrand disease Gastroenteritis Home Medications ???Medication ???Instructions ???Recorded ???Last Taken ???Type alprazolam 0.5 mg tablet (Xanax) 0.5 mg PO TID PRN abdominal pain 3 03/14/23 Unknown Rx days #12 tabs dicyclomine 20 mg tablet 20 mg PO TID PRN abdominal pain Unknown Rx #30 tabs ondansetron 4 mg disintegrating 4 mg PO Q8H PRN PRN Nausea #14 tab s 03/14/23 Unknown Rx tablet ondansetron 8 mg disintegrating 8 mg PO Q12H PRN nausea and Unknown History tablet vomiting venlafaxine 37.5 mg 37.5 mg PO DAILY 03/14/23 03/14/23 History capsule,extended release 24 hr fluconazole 150 mg tablet 150 mg PO X1 PRN yeast 2 doses #2 05/31/24 Unknown Rx tabs nitrofurantoin 100 mg PO Q12 #10 CAPSULES 5 Unknown Rx monohydrate/macrocrystals 100 mg capsule Allergy/AdvReac Type Severity Reaction Status Date / Time dicyclomine Allergy Mild palpitation Verified 05/31/24 09:04 s aspirin AdvReac Severe Bleeding Verified 05/31/24 09:04 ibuprofen AdvReac Severe Bleeding Verified 05/31/24 09:04 naproxen AdvReac Severe Bleeding Verified 05/31/24 09:04 Family History no significant family his Surgical History Hx of section Hx of tonsillectomy Social History Smoking Status: Former smoker ROS ROS ED Constitutional Constitutional ED: Denies chills, fever(s) or sweats ENT ENT ED: Denies sore throat Cardiovascular Cardiovascular: Denies chest pain, leg edema, palpitations or racing heartbeat Respiratory/Chest Respiratory/Chest: Denies cough, dyspnea or dyspnea on exertion Gastrointestinal Gastrointestinal: Reports abdominal pain, diarrhea, nausea and vomiting Genitourinary Genitourinary ED: Denies dysuria, hematuria or urinary frequency Musculoskeletal Musculoskeletal: Denies back pain, extremity pain or neck pain Integumentary Denies rash or wounds Neurologic Neurologic: Denies headache(s), paresthesias or weakness EXAM Physical Exam Const Vital Signs: 05/31/24 09:04 05/31/24 11:03 05/31/24 13:00 Temperature 98.9 F Temperature Source Oral Pulse Rate 98 77 72 Respiratory Rate 18 18 Blood Pressure 118/84 H 109/65 107/59 L Blood Pressure Mean 95 79 75 Pulse Ox 99 100 100 Oxygen Delivery Method Room Air Room Air Room Air 05/31/24 13:51 Temperature Temperature Source Pulse Rate Respiratory Rate Blood Pressure 107/59 L Blood Pressure Mean 75 Pulse Ox Oxygen Delivery Method Positive well nourished and well developed General Appearance ED: well developed and NAD HEENT Reports moist mucous membranes normocephalic and atraumatic Eyes General Eye ED: Yes normal appearance of both eyes Neck full ROM Chest Wall Chest: Negative for tenderness Resp normal respiratory effort and normal air movement Effort and Inspection: symmetric chest movement; Negative for respiratory distress Cardio regular rate, regular rhythm and no murmurs Peripheral Pulses: pulses 2+ throughout GI normal to inspection, nondistended, normoactive bowel sounds GI Narrative: Minimal mid abdominal tenderness. Negative Nava's or McBurney's tenderness. No guarding or rebound. Palpation: Negative for guarding or rebound tenderness present Extremity normal to inspection General Extremety ED: Negative for edema or tenderness General Extremity: Negative for edema Neuro oriented x3 and no sensory deficits noted Sensorium / Orientation: awake and alert Skin (more content not included)... Normal [facility] Eosinophil percentageOrdered By: Alonzo Argueta on 05-31-2024 Eosinophils/100 WBC (Bld) 7.6 % High 0-5 [facility] Erythrocyte distribution wid th ratioOrdered By: Alonzo Argueta on 05-31-2024 Erythrocyte distribution width (RBC) [Ratio] 11.9 % 11.6-14.6 [facility] Erythrocyte distribution wid th standard deviationOrdered By: Alonzo Argueta on 05-31-2024 Erythrocyte distribution width (RBC) [Ratio] 38.7 fl 35.1-43.9 [facility] Glomerular filtration rate ( GFR) estimationOrdered By: Alonzo Argueta on 05-31-2024 GFR/1.73 sq M.predicted among non-blacks MDRD (S/P/Bld) [Vol rate/Area] 103 mL/min/{1.73_m2} >60 [facility] Comment on above: Non- GFR Calc Glucose measurementOrdered B y: Alonzo Ellie on 05-31-2024 Glucose [Mass/Vol] 88 mg/dL 74-106 [facility] Hematocrit Auto (Bld) [Volum e fraction]Ordered By: Alonzo Argueta on 05-31-2024 Hematocrit (Bld) [Volume fraction] 44.6 % 37-47 [facility] Hemoglobin measurementOrdere d By: Alonzo Argueta on 05-31-2024 Hemoglobin (Bld) [Mass/Vol] 15.3 g/dL High 12.0-15.0 [facility] Immature granulocytes/100 WB C Auto (Bld)Ordered By: Alonzo Argueta on 05-31-2024 Immature granulocytes/100 WBC (Bld) 0.500 % 0.0-0.9 [facility] Comment on above: IG% - Immature Granu locytes (promyelocytes, myelocytes and metamyelocytes) > 1% indicates that a LEFT SHIFT is Present. Ketones Test strip Ql (U)Ord ered By: Alonzo Argueta on 05-31-2024 Ketones Ql (U) Negative Negative [facility] - Chemistry and C hemistry - challengeOrdered By: Alonzo Argueta on 05-31-2024 AST [Catalytic activity/Vol] 17 U/L 15-37 [facility] Lipaseon 05-31-2024 Lipase [Catalytic activity/Vol] 24 U/L Normal 13-75 [facility] Comment on above: Result Comment: Lorraine marmolejo note: LIPASE revised reference range effective 22. New Lipase methodology. Expected to produce lower values than the previous assay method. NEW Reference Range: 13 - 75 U/L Performed By: #### M 100.637, M100.6796 #### [facility] [address] [place], [address] Lipase measurementOrdered By : Alonzo Argueta on 05-31-2024 Lipase [Catalytic activity/Vol] 24 U/L 13-75 [facility] Comment on above: Please note:LIPASE r evised reference range effective 22. New Lipase methodology. Expected to produce lower values than the previous assay method. NEW Reference Range: 13 - 75 U/L Liver Profileon 05-31-2024 Albumin [Mass/Vol] 3.8 g/dL Normal 3.2-5.0 [facility] Comment on above: Performed By: #### M 100.637, M100.96 #### [facility] [address] [place], [address] ALK P 63 U/L Normal 45-117 [facility] Comment on above: Performed By: #### M 100.637, M1.96 #### [facility] [address] [place], [address] ALT [Catalytic activity/Vol] 22 U/L Normal 13-56 [facility] Comment on above: Performed By: #### M 100.637, M1.96 #### [facility] [address] [place], [address] AST [Catalytic activity/Vol] 17 U/L Normal 15-37 [facility] Comment on above: Performed By: #### M 100.637, M1.96 #### [facility] [address] [place], [address] Bilirubin [Mass/Vol] 0.60 mg/dL Normal 0.20-1.00 [facility] Comment on above: Result Comment: For patients on eltrombopag therapy, use of Dimension [place] TBIL is not recommended. Performed By: #### M 100.637, M1.96 #### [facility] [address] [place], [address] Bilirubin.direct [Mass/Vol] 0.11 mg/dL Normal 0.00-0.30 [facility] Comment on above: Performed By: #### M 100.637, M100.6796 #### [facility] [address] [place], [address] Globulin (S) [Mass/Vol] 3.9 g/dL Normal 2.2-4.2 [facility] Comment on above: Performed By: #### M 100.637, M100.6796 #### [facility] [address] [place], [address] T PROT 7.7 g/dL Normal 6.4-8.2 [facility] Comment on above: Performed By: #### M 100.637, M100.6796 #### [facility] [address] [place], [address] MCV (mean corpuscular volume ) determinationOrdered By: Alonzo Argueta on 05-31-2024 MCV (RBC) [Entitic vol] 89.4 fL 81-99 [facility] Mean corpuscular hemoglobin (MCH) determinationOrdered By: Alonzo Argueta on 05-31-2024 MCH (RBC) [Entitic mass] 30.7 pg 27.0-32.0 [facility] Mean corpuscular hemoglobin concentration (MCHC) determinationOrdered By: Alonzo Argueta on 05-31-2024 MCHC (RBC) [Mass/Vol] 34.3 g/dL 32-36 [facility] Mean platelet volume determi nationOrdered By: Alonzo Argueta on 05-31-2024 Platelet mean volume (Bld) [Entitic vol] 10.2 fL 6.2-12.0 [facility] Microscopic analysis of urin e for red blood cells (RBC)Ordered By: Alonzo Argueta on 05-31-2024 Microscopic analysis of urine for red blood cells (RBC) 0-5 SEEN /hpf 0-5 [facility] Monocyte percentageOrdered B y: Alonzo Argueta on 05-31-2024 Monocytes/100 WBC (Bld) 8.4 % 0-10 [facility] Mucus LM Ql (Urine sed)Order ed By: Alonzo Argueta on 05-31-2024 Mucus Ql (Urine sed) 0 SEEN /hpf [facility] Neutrophil percentageOrdered By: Alonzo Argueta on 05-31-2024 Neutrophils/100 WBC (Bld) 53.2 % 47-70 [place] [facility] Nitrite Test strip Ql (U)Ord ered By: Alonzo Argueta on 05-31-2024 Nitrite Ql (U) Negative Negative [facility] Nucleated red blood cell per centageOrdered By: Alonzo Argueta on 05-31-2024 Nucleated RBC/100 WBC (Bld) [Ratio] 0 % 0-5 [facility] Platelet countOrdered By: Lele Argueta on 05-31-2024 Platelets (Bld) [#/Vol] 250 10*3/uL 150-450 [facility] Potassium measurementOrdered By: Alonzo Argueta on 05-31-2024 Potassium [Moles/Vol] 3.5 mmol/L 3.5-5.1 [facility] ,Urineon 05-31-2024 Beta HCG ( test) Ql (U) Negative Normal [facility] Comment on above: Order Comment: Result Comment: Very dilute urine specimens, as indicated by a low specific gravity, may not contain contact representative levels of hCG. If is still suspected, a first morning urine specimen should be collected 48 hours later and tested. Performed By: #### M 100.637, M100.6796 #### [facility] [address] [place] [address]. [place], [address] Protein Test strip Ql (U)Ord ered By: Alonzo Argueta on 05-31-2024 Protein Ql (U) 15 mg/dl High Negative [facility] RBC Auto (Bld) [#/Vol]Ordere d By: Alonzo Argueta on 05-31-2024 RBC (Bld) [#/Vol] 4.99 10*6/uL 4.2-5.4 [facility] Serum anion gap measurementO rdered By: Alonzo Argueta on 05-31-2024 Anion gap [Moles/Vol] 6 mmol/L 5-15 [facility] Serum globulin measurementOr dered By: Alonzo Argueta on 05-31-2024 Globulin (S) [Mass/Vol] 3.9 g/dL 2.2-4.2 [facility] Serum or plasma alanine gtz otransferase (ALT) measurementOrdered By: Alonzo Argueta on 05-31-2024 ALT [Catalytic activity/Vol] 22 U/L 13-56 [facility] Serum or plasma albumin eran urement (mass/volume)Ordered By: Alonzo Argueta on 05-31-2024 Albumin [Mass/Vol] 3.8 g/dL 3.2-5.0 [facility] Serum or plasma alkaline demetrius sphatase measurementOrdered By: Alonzo Argueta on 05-31-2024 ALP [Catalytic activity/Vol] 63 U/L 45-117 [facility] Serum or plasma calcium eran urement (mass/volume)Ordered By: Alonzo Argueta on 05-31-2024 Calcium [Mass/Vol] 9.0 mg/dL 8.5-10.1 [facility] Serum or plasma creatinine m easurement (mass/volume)Ordered By: Alonzo Argueta on 05-31-2024 Creatinine [Mass/Vol] 0.71 mg/dL 0.55-1.02 [facility] Comment on above: The validity of the calculated GFR & GFRAA in patients over 70 years has not been determined. Clinical correlation is essential. Serum or plasma urea nitroge n measurement (mass/volume)Ordered By: Alonzo Argueta on 05-31-2024 Urea nitrogen [Mass/Vol] 8 mg/dL 7-18 [facility] Sodium levelOrdered By: Alonzo Argueta on 05-31-2024 Sodium [Moles/Vol] 138 mmol/L 136-145 [facility] Squamous epithelial cells de tection in urine sediment by light microscopyOrdered By: Alonzo Argueta on 05-31-2024 Epithelial cells.squamous LM Ql (Urine sed) 5-10 SEEN /hpf 5-10 [facility] Total proteinOrdered By: Dong Argueta on 05-31-2024 Protein [Mass/Vol] 7.7 g/dL 6.4-8.2 [facility] Urinalysis, Completeon 05-31 RBC 0-5 SEEN Normal 0-5 [facility] Comment on above: Order Comment: CLEAN CATCH Performed By: #### M 100.637, M100.7082 #### [facility] [address] [place], [address] WBC 0-5 SEEN Normal 0-5 [facility] Comment on above: Order Comment: CLEAN CATCH Performed By: #### M 100.637, [id number] #### [facility] [address] [place], [address] BACTERIA 2+ /hpf Normal None Seen [facility] Comment on above: Order Comment: CLEAN CATCH Performed By: #### M 100.637, [id number] #### [facility] [address] [place], [address] EPI,SQUAMOUS 5-10 SEEN Normal 5-10 [facility] Comment on above: Order Comment: CLEAN CATCH Performed By: #### M 100.637, [id number] #### [facility] [address] [place], [address] Mucus Ql (Urine sed) 0 SEEN Normal [facility] Comment on above: Order Comment: CLEAN CATCH Performed By: #### M 100.637, [id number] #### [facility] [address] [place], [address] Urine clarityOrdered By: Dong Argueta on 05-31-2024 Clarity (U) Sl. Cloudy Clear [facility] Urine color determinationOrd ered By: Alonzo Argueta on 05-31-2024 Color (U) Yellow Yellow [facility] Urine cultureOrdered By: Dong Argueta on 05-31-2024 Bacteria identified Cx Nom (U) Positive Abnormal [facility] Urine glucose detectionOrder ed By: Alonzo Argueta on 05-31-2024 Glucose Ql (U) Normal mg/dl Normal [facility] Urine leukocyte esterase det ection by dipstickOrdered By: Alonzo Argueta on 05-31-2024 Leukocyte esterase Test strip Ql (U) 25 /ul High Negative [facility] Urine pHOrdered By: Alonzo Argueta on 05-31-2024 pH (U) 7.0 [pH] 5.0 - 8.0 [facility] Urine testOrdered By: Alonzo Argueta on 05-31-2024 HCG ( test) Ql (U) Negative [facility] Comment on above: Very dilute urine sp ecimens, as indicated by a low specificgravity, may not contain contact representative levels of hCG. If is still suspected, a first morning urinespecimen should be collected 48 hours later and tested. Urine sediment bacteria coun t by microscopy (number/high power field)Ordered By: Alonzo Argueta on 05-31-2024 Bacteria LM.HPF (Urine sed) [#/Area] 2 /[HPF] None Seen [facility] Urine specific gravity measu rementOrdered By: Alonzo Argueta on 05-31-2024 Specific gravity (U) [Rel density] 1.010 1.002-1.[address] [facility] Urine urobilinogen measureme ntOrdered By: Alonzo Argueta on 05-31-2024 Urobilinogen Ql (U) Normal mg/dl Normal [facility] White blood cell (WBC) count Ordered By: Alonzo Argueta on 05-31-2024 WBC (Bld) [#/Vol] 7.7 10*3/uL 4.4-11.0 [facility] White blood cell countOrdere d By: Alonzo Argueta on 05-31-2024 White blood cell count 0-5 SEEN /hpf 0-5 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 Duration of symptoms 1 week. Associated symptoms cough chest congestion body aches chills wheezing headache sore throat. Most prominent symptom today is cough. Cough is productive. Is on day 5 of doxycycline from PCP. Does not feel like this is improving. 2 negative home COVID test. Denies any hemoptysis pleuritic pain chest pain. Denies chance of . Is not breast-feeding. Past medical history prescription medications allergies reviewed. BP 122/72 Pulse 93 Temp 36.9 ?C (98.5 ?F) Resp 16 Wt 77.5 kg (170 lb 13.7 oz) LMP 08/02/2023 (Exact Date) SpO2 98% BMI 31.76 kg/m? .Patient presents with: Sinus Problem: sinus pressure, drainage, wheezing, headache and sore throat on doxycycline x 6 days PAST MEDICAL HISTORY Diagnosis Date Encounter for preoperative assessment 09/04/2022 H/O removal of cyst from back of head Ureteral reflux with re-implantation at 9 months Vesico-ureteral reflux Von Willebrand disease Type I diagnosed at age 17. PAST SURGICAL HISTORY Procedure Laterality Date COLONOSCOPY 09/22/2022 EGD W/O BRSH SPEC VARICIES INJ 09/22/2022 OTHER ureteral-reimplantation TONSILLECTOMY HX TOOTH EXTRACTION ALLERGIES Aluminum Aspirin, Ibuprofen, Aspirin, Hydrocodone-Acetaminophen, Nsaids (Non-Steroidal Anti-Inflammatory Drug), and Dicyclomine MEDICATIONS doxycycline hyclate (VIBRAMYCIN) 100 mg capsule Take 1 capsule by mouth every 12 hours. escitalopram oxalate (LEXAPRO) 20 mg tablet Take 1 tablet by mouth every afternoon. aminocaproic acid (AMICAR) 250 mg/mL (25 %) solution Take 20 mL by mouth every 6 hours as needed (bleeding). ondansetron orally disintegrating (ZOFRAN ODT) 8 mg disintegrating tablet Take 1 tablet by mouth every 8 hours as needed for nausea/vomiting. acetaminophen (TYLENOL) 325 mg tablet Take by mouth as directed. promethazine (PHENERGAN) 12.5 mg tablet Take 1 tablet by mouth every 6 hours as needed. venlafaxine ER (EFFEXOR XR) 150 mg 24 hr capsule (Patient not taking: Reported on 04/10/2024) venlafaxine ER (EFFEXOR XR) 37.5 mg 24 hr capsule Take 37.5 mg by mouth. (Patient not taking: Reported on 04/10/2024) omeprazole (PRILOSEC) 20 mg capsule Take 1 capsule by mouth once daily. tranexamic acid (LYSTEDA) 650 mg tablet Take 2 tablets by mouth every 8 hours for 3 days, THEN 2 tablets every 8 hours as needed (Visible GI bleeding) for up to 4 days. aluminum chloride (DRYSOL) 20 % external solution hyoscyamine sublingual (LEVSIN/SL) 0.125 mg Dissolve 1 tablet under the tongue every 4 hours as needed. FAMILY HISTORY Problem Relation Age of Onset other (MS) Mother other (Diverticulosis) Mother other (Other) Father Multiple Sclerosis Paternal Grandmother other (Limted information; brother; mother, grandmother don't want to be tested.) Other Social History Tobacco Use Smoking status: Former Smokeless tobacco: Never Vaping Use Vaping status: Never Used Substance Use Topics Alcohol use: No Drug use: No Review of Systems Constitutional: Positive for malaise/fatigue. Negative for chills and fever. HENT: Positive for congestion and sore throat. Negative for ear discharge, ear pain and sinus pain. Eyes: Negative for blurred vision, pain, discharge and redness. Respiratory: Positive for cough and sputum production. Negative for hemoptysis, shortness of breath, wheezing and stridor. Cardiovascular: Negative for chest pain. Gastrointestinal: Negative for abdominal pain, diarrhea, nausea and vomiting. Musculoskeletal: Positive for myalgias. Skin: Negative for itching and rash. Neurological: Positive for headaches. Negative for dizziness. Objective Physical Exam Constitutional: General: She is not in acute distress. Appearance: She is not diaphoretic. HENT: Head: Normocephalic. Jaw: No trismus, tenderness, swelling or pain on movement. Mouth/Throat: Mouth: Mucous membranes are moist. Pharynx: Oropharynx is clear. Uvula midline. No pharyngeal swelling, oropharyngeal exudate, posterior oropharyngeal erythema or uvula swelling. Eyes: Conjunctiva/sclera: Conjunctivae normal. Pupils: Pupils are equal, round, and reactive to light. Cardiovascular: Rate and Rhythm: Normal rate and regular rhythm. Heart sounds: Normal heart sounds. Pulmonary: Effort: Pulmonary effort is normal. No tachypnea, accessory muscle usage or respiratory dist (more content not included)... Normal [facility] XR CHEST 2V FRONTAL/LATon XR CHEST 2V FRONTAL/LAT * * *Final Report* * * DATE OF EXAM: Apr 10 2024 8:55AM WOX [id number] - XR CHEST 2V FRONTAL/LAT / PROCEDURE REASON: Acute cough * * * * Physician Interpretation * * * * EXAMINATION: CHEST RADIOGRAPH (2 VIEW FRONTAL and LATERAL) PATIENT/TECHNOLOGIST PROVIDED HISTORY: Acute cough CLINICAL HISTORY: 29 years old Female with Acute cough MQ: XC2_6 EXAM DATE/TIME: 04/10/2024 8:55 AM COMPARISON: Chest radiograph(s) dated 12/05/2012 RESULT: Lines, tubes, and devices: None. Lungs and pleura: Patchy anterior RIGHT upper lobe opacities best seen on the lateral radiograph which project in the RIGHT hilar region on the frontal radiograph suggestive of pneumonia. No pleural effusion or pneumothorax. Cardiomediastinal silhouette: Normal cardiomediastinal silhouette. Bones and soft tissues: Unremarkable. IMPRESSION: Patchy anterior RIGHT upper lobe opacities suggestive of pneumonia. Roll Tension Tester: GURPREET Transcribe Date/Time: Apr 10 2024 8:56A Dictated by : MARK JUAREZ DO This examination was interpreted and the report reviewed and electronically signed by: MARK JUAREZ DO on Apr 10 2024 9:02AM EST [id number] Normal [facility] XR Chest PA and Lateralon IMPRESSION: Patchy anterior RIGHT upper lobe opacities suggestive of pneumonia. Roll Tension Tester: GURPREET Transcribe Date/Time: Apr 10 2024 8:56A Dictated by : MARK JUAREZ DO This examination was interpreted and the report reviewed and electronically signed by: MARK JUAREZ DO on Apr 10 2024 9:02AM EST DIVISION OF RADIOLOGY * * *Final Report* * * DATE OF EXAM: Apr 10 2024 8:55AM WOX [id number] - XR CHEST 2V FRONTAL/LAT / PROCEDURE REASON: Acute cough * * * * Physician Interpretation * * * * EXAMINATION: CHEST RADIOGRAPH (2 VIEW FRONTAL & LATERAL) PATIENT/TECHNOLOGIST PROVIDED HISTORY: Acute cough CLINICAL HISTORY: 29 years old Female with Acute cough MQ: XC2_6 EXAM DATE/TIME: 04/10/2024 8:55 AM COMPARISON: Chest radiograph(s) dated 12/05/2012 RESULT: Lines, tubes, and devices: None. Lungs and pleura: Patchy anterior RIGHT upper lobe opacities best seen on the lateral radiograph which project in the RIGHT hilar region on the frontal radiograph suggestive of pneumonia. No pleural effusion or pneumothorax. Cardiomediastinal silhouette: Normal cardiomediastinal silhouette. Bones and soft tissues: Unremarkable. DIVISION OF RADIOLOGY Provider, Pan Brown [facility] - 04/10/2024 * * *Final Report* * * DATE OF EXAM: Apr 10 2024 8:55AM WOX [id number] - XR CHEST 2V FRONTAL/LAT / PROCEDURE REASON: Acute cough * * * * Physician Interpretation * * * * EXAMINATION: CHEST RADIOGRAPH (2 VIEW FRONTAL & LATERAL) PATIENT/TECHNOLOGIST PROVIDED HISTORY: Acute cough CLINICAL HISTORY: 29 years old Female with Acute cough MQ: XC2_6 EXAM DATE/TIME: 04/10/2024 8:55 AM COMPARISON: Chest radiograph(s) dated 12/05/2012 RESULT: Lines, tubes, and devices: None. Lungs and pleura: Patchy anterior RIGHT upper lobe opacities best seen on the lateral radiograph which project in the RIGHT hilar region on the frontal radiograph suggestive of pneumonia. No pleural effusion or pneumothorax. Cardiomediastinal silhouette: Normal cardiomediastinal silhouette. Bones and soft tissues: Unremarkable. IMPRESSION IMPRESSION: Patchy anterior RIGHT upper lobe opacities suggestive of pneumonia. Roll Tension Tester: GURPREET Transcribe Date/Time: Apr 10 2024 8:56A Dictated by : MARK JUAREZ DO This examination was interpreted and the report reviewed and electronically signed by: MARK JUAREZ DO on Apr 10 2024 9:02AM EST [facility] Radiology Study observation (narrative) [facility] XR Chest PA and LateralOrder ed By: [facility] Provider on 04-10-2024 [facility] 36on 12-17-2023 36 Jerrica called in re garding appointment scheduled 12/20/23 for her vaccination. States she was unaware while scheduling appointment it was being scheduled in [place] office opposed to [place]. Asked if it was possible to be completed in [place]. Please advise. Normal [facility] Office Visiton 09-15-2023 Follow-up visit [id number] Shelli Suggs 1995 F Date Provider Department Center 09/15/2023 [id number] [facility] ALS None Family History Problem Relation Age of Onset High Blood Pressure Mother Multiple sclerosis Mother Cancer Paternal Grandmother Family Status - Relation Status Age at Mother Alive Father Alive Maternal Grandmother Alive Maternal Grandfather Paternal Grandmother Paternal Grandfather Alive Level of Service:25572 [place] POSTOP FOLLOW UP VISIT RELATED TO ORIGINAL PX Reason for Visit and Comments: Post-op [483] - ALS PO LAP HUYEN 09/03/23 Normal [facility] Progress Noteon 09-15-2023 Progress Note [facility] Laparoscopic Surgery Patient Name: Jerrica Suggs Date: 09/17/23 S: Jerrica Suggs follows up for a post operative visit after undergoing a laparoscopic cholecystectomy with Dr. Posey on 09/03/23. She is doing well without any major postoperative complications. Her pain control is well controlled and she is not asking for narcotic refills. Her bowel function has returned to normal without constipation or diarrhea. Her appetite is returning to normal and she does not report any dysphagia, nausea or vomiting. Overall, she states that she's doing well. Had no issues with postop bleeding with her von Willebrand disease. States that she still has some mild RUQ discomfort, but improved. Denies significant issues with PO intake or bowel movements. Otherwise, no major concerns today. Allergies Allergen Reactions Aspirin Other Due to having a bleeding disorder Other reaction(s): Bleeding Ibuprofen Other Due to having a bleeding disorder Nsaids Other Due to bleeding disorder. Hydrocodone Itching OKAY TO TAKE JUST TYLENOL Naproxen Due to bleeding disorder Dicyclomine Palpitations Current Outpatient Medications Medication Sig Dispense Refill acetaminophen (Tylenol) 325 MG tablet Take by mouth every 4 hours as needed. levonorgestrel (Mirena, 52 MG,) 20 MCG/DAY IUD 1 each by IntraUTERine route Once. Multiple Vitamin (multivitamin) capsule Take 1 capsule by mouth daily. ondansetron ODT (Zofran-ODT) 8 MG disintegrating tablet every 8 hours as needed. promethazine (Phenergan) 12.5 MG tablet Take 12.5 mg by mouth every 6 hours as needed. venlafaxine XR (Effexor XR) 150 MG 24 hr capsule Nightly. venlafaxine XR (Effexor XR) 37.5 MG 24 hr capsule Take 37.5 mg by mouth Nightly. Do not crush or chew. Xanax 0.25 MG tablet 1 tablet Orally daily prn anxiety for 30 days No current facility-administered medications for this visit. Past Medical History: Diagnosis Date Acid reflux Disease of blood and blood forming organ IBS (irritable bowel syndrome) Vesicoureteral reflux Von Willebrand disease (HCC) Past Surgical History: Procedure Laterality Date SECTION (HISTORICAL) 2017 CHOLECYSTECTOMY 09/03/2023 Taty; lap KIDNEY SURGERY re implanted ureters at the age of 9 months old TONSILLECTOMY (HISTORICAL) O: BP 102/59 (BP Location: Right arm, Patient Position: Sitting, BP Cuff Size: Adult) Pulse 107 Temp 36.6 ?C (97.8 ?F) (Temporal) Ht 5' 2 (1.575 m) Wt 161 lb (73 kg) LMP 08/09/2023 Comment: MIRENA IUD BMI 29.45 kg/m? Physical Exam: The wounds are healing well. There is no evidence of infection, seroma, erythema or hernia; abdomen soft, non-tender Pathology: Final Diagnosis GALLBLADDER, CHOLECYSTECTOMY: - MILD CHRONIC CHOLECYSTITIS WITH CHOLESTEROLOSIS Assessment/Plan Jerrica was seen today for post-op. Diagnoses and all orders for this visit: Encounter for postoperative care (Primary) Jerrica Suggs is a 28 y.o. female presenting for postoperative evaluation after undergoing laparoscopic cholecystectomy on 09/03/23. She may advance diet as tolerated. She may increase their activity to a normal level yet refrain from lifting greater than 15# for one month after surgery. Follow-up PRN. The patient was seen and examined independently and relevant data reviewed by myself. A full chart review was performed. Patient Care Team: Nunu Cortez MD as PCP - General (Family Medicine) Bakari Silva MD (Hematology and Oncology) [facility] BASIC METABOLIC PANELon 05- Anion gap [Moles/Vol] 10 mmol/L Normal 3-13 [facility] Comment on above: Performed By: #### L [id number] ####Machine Oiler: ALEXX JAY ([id number])[facility] [place] [address] Calcium [Mass/Vol] 9.5 mg/dL Normal 8.4-10.4 [facility] Comment on above: Performed By: #### L [id number] ####Machine Oiler: ALEXX JAY ([id number])[facility] ([facility])[address] [place] [address] Chloride [Moles/Vol] 105 mmol/L Normal 98-107 [facility] Comment on above: Performed By: #### L [id number] ####Machine Oiler: ALEXX JAY ([id number])[facility] ([facility])[address] [place] [address] CO2 [Moles/Vol] 22 mmol/L Normal 22-30 [facility] Comment on above: Performed By: #### L [id number] ####Machine Oiler: ALEXX JAY ([id number])[facility] ([facility])[address] [place] [address] Creatinine [Mass/Vol] 0.52 mg/dL Normal 0.52-1.04 [facility] Comment on above: Performed By: #### L [id number] ####Machine Oiler: ALEXX JAY ([id number])[facility])[address] [place] [address] GLOMERULAR FILTRATION RATE ML/MIN/1.73 SQ M.PREDICTED >90.0 Normal >60.0 [facility] Comment on above: Result Comment: Calc ulation based on the Chronic Kidney Disease Epidemiology Collaboration (CKD-EPI) equation refit without adjustment for race Performed By: #### L [id number] ####Machine Oiler: ALEXX JAY ([id number])[facility] ([facility])[address] [place] [address] [place] Glucose [Mass/Vol] 156 mg/dL High 70-100 [facility] Comment on above: Performed By: #### L [id number] ####Machine Oiler: ALEXX JAY ([id number])[facility] ([facility])[address] [place] [address] [place] Potassium [Moles/Vol] 4.4 mmol/L Normal 3.5-5.1 [facility] Comment on above: Performed By: #### L [id number] ####Machine Oiler: ALEXX JAY ([id number])[facility] ([facility])[address] [place] [address] Sodium [Moles/Vol] 137 mmol/L Normal 135-145 [facility] Comment on above: Performed By: #### L [id number] ####Machine Oiler: ALEXX JAY ([phone])[facility] ([facility])[address] [place] [address] Urea nitrogen [Mass/Vol] 5 mg/dL Low 7-17 [facility] Comment on above: Performed By: #### L [id number] ####Machine Oiler: ALEXX JAY ([id number])[facility] ([facility])[address] [place] [address] Basic metabolic 1998 panelon 09-04-2023 Anion gap [Moles/Vol] 10 mmol/L 3 - 13 mmol/L [facility] Calcium [Mass/Vol] 9.5 mg/dL 8.4 - 10. 4 mg/dL [facility] Chloride [Moles/Vol] 105 mmol/L 98 - 10 7 mmol/L [facility] CO2 [Moles/Vol] 22 mmol/L 22 - 30 mmol/L [facility] Creatinine [Mass/Vol] 0.52 mg/dL 0.52 - 1.04 mg/dL [facility] GFR/1.73 sq M.predicted MDRD (S/P/Bld) [Vol rate/Area] - PINF [facility] Comment on above: Calculation based on the Chronic Kidney Disease Epidemiology Collaboration (CKD-EPI) equation refit without adjustment for race Glucose [Mass/Vol] 156 mg/dL High 70 - 100 mg/dL [facility] Interpretation and review of laboratory results Abnormal [facility] Potassium [Moles/Vol] 4.4 mmol/L 3.5 - 5.1 mmol/L [facility] Sodium [Moles/Vol] 137 mmol/L 135 - 145 mmol/L [facility] Urea nitrogen [Mass/Vol] 5 mg/dL Low 7 - 17 mg/dL [facility] CBC W Auto Differential pane l (Bld)on 09-04-2023 Basophils (Bld) [#/Vol] 0.0 10*3/uL 0.0 - 0.2 10*3/uL [facility] Basophils/100 WBC (Bld) 0.2 % 0.0 - 2.0 % [facility] Eosinophils (Bld) [#/Vol] 0.0 10*3/uL 0.0 - 0.5 10*3/uL [facility] Eosinophils/100 WBC (Bld) 0.0 % 0.0 - 6.0 % [facility] Erythrocyte distribution width (RBC) [Ratio] 11.7 % 11.5 - 15.0 % [facility] Hematocrit (Bld) [Volume fraction] 42.3 % 35.0 - 47.0 % [facility] Hemoglobin (Bld) [Mass/Vol] 14.5 g/dL 11.7 - 16.0 g/dL [facility] Immature granulocytes (Bld) [#/Vol] 0.1 10*3/uL High NINF - 0.1 10*3/uL [facility] Immature granulocytes/100 WBC (Bld) 0.5 % 0.0 - 2.0 % [facility] Interpretation and review of laboratory results Abnormal [facility] Lymphocytes (Bld) [#/Vol] 0.9 10*3/uL Low 1.0 - 4.3 10*3/uL [facility] Lymphocytes/100 WBC (Bld) 6.8 % Low 15.0 - 45.0 % [facility] MCH (RBC) [Entitic mass] 30.1 pg 26.0 - 34.0 pg [facility] MCHC (RBC) [Mass/Vol] 34.3 % 30.5 - 36.0 % [facility] MCV (RBC) [Entitic vol] 87.8 fL 77.0 - 99.0 fL [facility] Monocytes (Bld) [#/Vol] 0.7 10*3/uL 0.0 - 0.9 10*3/uL [facility] Monocytes/100 WBC (Bld) 5.1 % 5.0 - 13.0 % [facility] Neutrophils (Bld) [#/Vol] 11.3 10*3/uL High 1.8 - 7.5 10*3/uL [facility] Neutrophils/100 WBC (Bld) 87.4 % High 38.0 - 82.0 % [facility] Nucleated RBC/100 WBC (Bld) [Ratio] 0.0 % [facility] Platelet mean volume (Bld) [Entitic vol] 10.7 fL 9.0 - 12.7 fL [facility] Platelets (Bld) [#/Vol] 260 10*3/uL 140 - 440 10*3/uL [facility] RBC (Bld) [#/Vol] 4.82 10*6/uL 3.80 - 5.20 10*6/uL [facility] WBC (Bld) [#/Vol] 12.9 10*3/uL High 3.6 - 10.7 10*3/uL [facility] CBC WITH AUTO DIFFERENTIALon 09-04-2023 Basophils (Bld) [#/Vol] 0.0 10*3/uL Normal 0.0-0.2 [facility] Comment on above: Performed By: #### L [id number] ####Machine Oiler: ALEXX JAY ([id number])[facility])[address] [place] [address] Basophils/100 WBC (Bld) 0.2 % Normal 0.0-2.0 [facility] Comment on above: Performed By: #### L [id number] ####Machine Oiler: ALEXX JAY ([id number])[facility])[address] [place] [address] Eosinophils (Bld) [#/Vol] 0.0 10*3/uL Normal 0.0-0.5 [facility] Comment on above: Performed By: #### L [id number] ####Machine Oiler: ALEXX JAY ([id number])[facility])[address] [place] [address] Eosinophils/100 WBC (Bld) 0.0 % Normal 0.0-6.0 [facility] Comment on above: Performed By: #### L [id number] ####Machine Oiler: ALEXX JAY ([id number])[facility])[address] [place] [address] Erythrocyte distribution width (RBC) [Ratio] 11.7 % Normal 11.5-15.0 [facility] Comment on above: Performed By: #### L [id number] ####Machine Oiler: ALEXX JAY ([id number])[facility])[address] [place] [address] Hematocrit (Bld) [Volume fraction] 42.3 % Normal 35.0-47.0 [facility] Comment on above: Performed By: #### L [id number] ####Machine Oiler: ALEXX JAY ([id number])[facility])[address] [place] [address] Hemoglobin (Bld) [Mass/Vol] 14.5 g/dL Normal 11.7-16.0 [facility] Comment on above: Performed By: #### L [id number] ####Machine Oiler: ALEXX JAY ([id number])[facility])[address] [place] [address] IMMATURE GRANS % 0.5 % Normal 0.0-2.0 [facility] Comment on above: Performed By: #### L [id number] ####Machine Oiler: ALEXX JAY ([id number])[facility])[address] [place] [address] IMMATURE GRANS ABSOLUTE 0.1 10*3/uL High <0.1 [facility] Comment on above: Performed By: #### L [id number] ####Machine Oiler: ALEXX JAY ([id number])[facility])[address] [place] [address] Lymphocytes (Bld) [#/Vol] 0.9 10*3/uL Low 1.0-4.3 [facility] Comment on above: Performed By: #### L [id number] ####Machine Oiler: ALEXX JAY ([id number])[facility])[address] [place] [address] Lymphocytes/100 WBC (Bld) 6.8 % Low 15.0-45.0 [facility] Comment on above: Performed By: #### L [id number] ####Machine Oiler: ALEXX JAY ([id number])[facility])[address] [place] [address] MCH (RBC) [Entitic mass] 30.1 pg Normal 26.0-34.0 [facility] Comment on above: Performed By: #### L [id number] ####Machine Oiler: ALEXX JAY ([id number])[facility])[address] [place] [address] MCHC 34.3 % Normal 30.5-36.0 [facility] Comment on above: Performed By: #### L [id number] ####Machine Oiler: ALEXX JAY ([id number])[facility])[address] [place] [address] MCV (RBC) [Entitic vol] 87.8 fL Normal 77.0-99.0 [facility] Comment on above: Performed By: #### L [id number] ####Machine Oiler: ALEXX JAY ([id number])[facility])[address] [place] [address] Monocytes (Bld) [#/Vol] 0.7 10*3/uL Normal 0.0-0.9 [facility] Comment on above: Performed By: #### L [id number] ####Machine Oiler: ALEXX JYA ([id number])[facility])[address] [place] [address] Monocytes/100 WBC (Bld) 5.1 % Normal 5.0-13.0 [facility] Comment on above: Performed By: #### L [id number] ####Machine Oiler: ALEXX JAY ([id number])[facility])[address] [place] [address] NEUTROPHILS ABSOLUTE 11.3 10*3/uL High 1.8-7.5 [facility] Comment on above: Performed By: #### L [id number] ####Machine Oiler: ALEXX JAY ([id number])[facility] [place] [address] Neutrophils/100 WBC (Bld) 87.4 % High 38.0-82.0 [facility] Comment on above: Performed By: #### L [id number] ####Machine Oiler: ALEXX JAY ([id number])[facility] ([facility])[address] [place] [address] NRBC 0.0 /100 WBCs Normal 0.0-2.0 [facility] Comment on above: Performed By: #### L [id number] ####Machine Oiler: ALEXX JAY ([id number])[facility] ([facility])[address] [place] [address] Platelet mean volume (Bld) [Entitic vol] 10.7 fL Normal 9.0-12.7 [facility] Comment on above: Performed By: #### L [id number] ####Machine Oiler: ALEXX JAY ([id number])[facility] ([facility])[address] [place] [address] Platelets (Bld) [#/Vol] 260 10*3/uL Normal 140-440 [facility] Comment on above: Performed By: #### L [id number] ####Machine Oiler: ALEXX JAY ([id number])[facility] ([facility])[address] [place] [address] RBC (Bld) [#/Vol] 4.82 10*6/uL Normal 3.80-5.20 [facility] Comment on above: Performed By: #### L [id number] ####Machine Oiler: ALEXX JAY ([id number])[facility] ([facility])[address] [place] [address] WBC (Bld) [#/Vol] 12.9 10*3/uL High 3.6-10.7 [facility] Comment on above: Performed By: #### L [id number] ####Machine Oiler: ALEXX JAY ([id number])[facility] ([facility])[address] [place] [address] Laboratory - Coagulationon 0 09-04-2023 aPTT Coag (PPP) [Time] 28.0 s 20.0 - 30.5 s [facility] INR Coag (PPP) [Relative time] 1.0 {INR} 0.9 - 1.1 [facility] Comment on above: Recommended Anticoag ulant Therapy: SEE BELOW ----- INR of 2.0 - 3.0 : - Prophylaxis of Venous Thrombosis (high-risk surgery) - Treatment of Venous Thrombosis - Treatment of Pulmonary Embolism (Includes tissue heart valves, Acute Myocardial Infarction to prevent systemic embolism, Valvular Heart Disease, and Atrial Fibrillation) ----- INR of 2.5 - 3.5 : - Mechanical Prosthetic Valves (high risk) - If oral anticoagulant therapy is used to prevent Myocardial Infarction PT Coag (Bld) [Time] 11.1 s 9.0 - 1 2.0 s [facility] No Panel Informationon 09-03 Interpretation and review of laboratory results Normal [facility] PROTIME AND APTTon aPTT Coag (Bld) [Time] 28.0 s Normal 20.0-30.5 [facility] Comment on above: Performed By: #### Rickey [id number] #### Machine Oiler: ALEXX JAY ([id number]) [address] INR Coag (PPP) [Relative time] 1.0 {INR} Normal 0.9-1.1 [facility] Comment on above: Result Comment: Bharathi mmended Anticoagulant Therapy: SEE BELOW ----- INR of 2.0 - 3.0 : - Prophylaxis of Venous Thrombosis (high-risk surgery) - Treatment of Venous Thrombosis - Treatment of Pulmonary Embolism (Includes tissue heart valves, Acute Myocardial Infarction to prevent systemic embolism, Valvular Heart Disease, and Atrial Fibrillation) ----- INR of 2.5 - 3.5 : - Mechanical Prosthetic Valves (high risk) - If oral anticoagulant therapy is used to prevent Myocardial Infarction Performed By: #### L [id number] #### Machine Oiler: ALEXX JAY ([id number]) [facility] ([facility]) [address] [place] [address] PT Coag (PPP) [Time] 11.1 s Normal 9.0-12.0 [facility] Comment on above: Performed By: #### L [id number] #### Machine Oiler: ALEXX JAY ([id number]) [facility] ([facility]) [address] [place] [address] HCG ( test) Ql (U)o n 09-03-2023 Beta HCG ( test) Ql (U) [id number] [facility] Interpretation and review of laboratory results Normal [facility] NEGATIVE QC Pass [facility] POSITIVE QC Pass [facility] Preg Test, Ur Negative Negative [facility] Radiology Study observation (narrative) [facility] IDNon 09-03-2023 IDN Problem: Knowledge D eficit Goal: Patient/family/caregiver demonstrates understanding of disease process, treatment plan, medications, and discharge instructions 09/03/2023 1430 by Kyara Gaines RN Outcome: Progressing 09/03/2023 1430 by Kyara Gaines RN Outcome: Progressing Problem: Potential for Compromised Skin Integrity Goal: Skin Integrity is Maintained or Improved 09/03/2023 1430 by Kyara Gaines RN Outcome: Progressing 09/03/2023 1430 by Kyara Gaines RN Outcome: Progressing Goal: Nutritional status is improving 09/03/2023 1430 by Kyara Gaines RN Outcome: Progressing 09/03/2023 1430 by Kyara Gaines RN Outcome: Progressing Problem: Urinary Incontinence Goal: Perineal skin integrity is maintained or improved 09/03/2023 1430 by Kyara Gaines RN Outcome: Progressing 09/03/2023 1430 by Kyara Gaines RN Outcome: Progressing The patient is Moderately Stable - Low risk of patient condition declining or worsening Normal [facility] Nursing Noteon 09-03-2023 Nursing Note Called report to H5 RN. Called and updated patient's mother. Normal [facility] Nursing Note Mother updated and a waiting a room assignment Normal [facility] Op Noteon 09-03-2023 Op Note Date: 09/03/2023 Loca tion: [facility] OR Name: Jerrica Suggs, : 1995, Diagnosis Pre-op Diagnosis * Epigastric pain [R10.13] Post-op Diagnosis * Epigastric pain [R10.13] Procedures LAPAROSCOPIC CHOLECYSTECTOMY 75695 - [place] LAPAROSCOPY SURG CHOLECYSTECTOMY Surgeons * Melvin Posey - Primary Procedure Summary Anesthesia: General ASA: II Estimated Blood Loss: 5 mL Drains: * None in log * Specimens ID Source Type Tests Collected By Collected At Frozen? Priority Lab ID 1 Gallbladder Tissue TISSUE EXAM Melvin Posey MD 09/03/23 1111 No Routine Description: GALLBLADDER Staff: Head Athletic Trainer: Brenda Thompson RN Relief Head Athletic Trainer: Sayra Najera RN Scrub Person: Andreea Fantasmasusiekaiden Findings: chronic cholecystitis Complications: None; patient tolerated the procedure well. Specimens Collected: Order Name Source Comment Collection Info Order Time POTASSIUM WITH MG REFLEX For patients on dialysis to draw potassium day of surgery 09/03/2023 9:44 AM PROTHROMBIN TIME If patient on coumadin within 4 days prior. 09/03/2023 9:44 AM TISSUE EXAM Gallbladder Pre-op diagnosis: EPIGASTRIC PAIN Collected By: Melvin Posey MD 09/03/2023 11:11 AM Wound Class: Class II: Clean-Contaminated Blood Products: None Prophylactic Antibiotics: Procedure appropriate prophylactic antibiotic(s) given within 1 hour of surgical incision (two hours if receiving Vancomycin or flouroquinolone) Normal [facility] Op Note MELVIN POSEY MD , F [facility] MINIMALLY INVASIVE & METABOLIC / BARIATRIC SURGERY [facility] OPERATIVE REPORT 09/03/2023 PATIENT: Jerrica Suggs DATE OF : 1995 PROCEDURE: 1. LAPAROSCOPIC CHOLECYSTECTOMY (95255) SURGEON: Melvin Posey MD GYN PHYSICIAN: Tawny Leija MD PRE-OPERATIVE DIAGNOSES: Chronic cholecystitis Right upper quadrant pain POST-OPERATIVE DIAGNOSES: Same ANESTHESIA: General endotracheal Transversus Abdominis plane block FLUIDS: Crystalloid ESTIMATED BLOOD LOSS: Minimal URINE OUTPUT: Not recorded PREOPERATIVE MEDICATIONS: Pre-operative IV antibiotics INDICATIONS FOR PROCEDURE: The patient is a 28 y.o. female with symptomatic gallbladder disease. The patient was evaluated and laparoscopic cholecystectomy was recommended. The risks, benefits and options of the procedure and additional possible interventions were reviewed and all questions were answered to the patient's satisfaction. DESCRIPTION OF PROCEDURE: The patient was transported to the operating room and identified by name and number. The patient was placed on the operating room table in the supine position and general endotracheal anesthesia was administered by members of the anesthesia team. Following placement of sequential compression devices, the patients extremities were positioned and protected. The abdomen was prepped and draped in standard surgical fashion. An operating room team time out was performed confirming the identity of the patient and the planned procedure. The abdominal cavity was accessed in the left upper quadrant at John's point using a 5-mm optical trocar. Pneumoperitoneum was established and a brief exploration of the abdominal cavity was performed. Additional trocars were carefully placed under direct visualization. Two 5-mm trocars were placed in the right upper quadrant and one 10-mm trocar near the umbilicus. Graspers were introduced, and the gallbladder was grasped and retracted cephalad and laterally exposing the triangle of Calot. Careful dissection using L-hook electrocautery and [place] dissectors was performed isolating the cystic duct and the cystic artery. These structures were clipped twice on the patient side and once on the specimen side and divided using the laparoscopic scissors. The remainder of the gallbladder was carefully taken off the liver bed using L-hook electrocautery. Following this, it was placed in a specimen bag and removed through the periumbilical incision. At the end of the operation, the trocars were carefully removed under direct visualization and the pneumoperitoneum was evacuated. Fascial defect were closed using 0-Vycril suture for 10-mm trocar sites and the skin incisions were closed using 4-0 Vycril suture in subcuticular fashion. This was followed by steri strips and sterile dressings. The needle, sponge and instrument counts were correct. The patient tolerated the procedure and the anesthesia well without any major complications. The patients was transported to the post-anesthesia care unit in stable condition. I was present for the entire duration of the procedure. Normal [facility] 36on 08-31-[address] Silva's note on 08/27/23. Discussed with Drs. Posey, Jorge, Oniel, Timmy. - We discussed plan for potential von willebrand factor replacement prior to surgery, and repeating the factor infusion every 24 hours out of caution, as patient carries a prior diagnosis of VWD. - Please infuse 50 VWF:RCo IU/kg on the morning of surgery (09/03/23), then infuse a second dose at 30 VWF: RCo IU/kg on POD #2 (09/04/23). - If unexpected/ significant bleeding is seen, the VWF can be repeated at 30 VWF: RCo IU /kg every 12 to 24 hours, and IV DDAVP can also be administered at 20 mcg daily x 2 days - Please make available aminocaproic acid or tranexamic acid 25 mg/kg PO every 6 hours as needed for bleeding post-surgery - I would recommend repeating CBC with differential on POD#2 to ensure hemodynamic stability, as well as monitoring PTT and PT. Note patient's PTT at baseline is elevated. Normal [facility] [id number] 08-30-2023 [id number] Labs obtained on 1 a ttempt with 22 gauge needle at [facility] site. Patient tolerated well, site benign. Normal [facility] HEPATIC FUNCTION PANELon Albumin [Mass/Vol] 4.5 g/dL Normal 3.5-5.0 [facility] Comment on above: Performed By: #### L AB20 ####Machine Oiler: ALEXX JAY ([id number])[facility] ([facility])[address] [place] [address] ALP [Catalytic activity/Vol] 59 U/L Normal 38-126 [facility] Comment on above: Performed By: #### L AB20 ####Machine Oiler: ALEXX JAY ([id number])[facility] ([facility])[address] [place] [address] ALT [Catalytic activity/Vol] 21 U/L Normal 0-34 [facility] Comment on above: Performed By: #### L AB20 ####Machine Oiler: ALEXX JAY ([id number])[facility])[address] [place] [address] AST [Catalytic activity/Vol] 32 U/L Normal 15-46 [facility] Comment on above: Performed By: #### L AB20 ####Machine Oiler: ALEXX JAY ([id number])[facility])[address] [place] [address] Bilirubin [Mass/Vol] 0.4 mg/dL Normal 0.2-1.3 [facility] Comment on above: Performed By: #### L AB20 ####Machine Oiler: ALEXX JAY ([id number])[facility])[address] [place] [address] Bilirubin.indirect [Mass/Vol] 0.0 mg/dL Normal 0.0-0.3 [facility] Comment on above: Performed By: #### L AB20 ####Machine Oiler: ALEXX JAY ([id number])[facility])[address] [place] [address] Protein [Mass/Vol] 7.7 g/dL Normal 6.3-8.2 [facility] Comment on above: Performed By: #### L AB20 ####Machine Oiler: ALEXX JAY ([id number])[address] PREPROCINSon 08-30-2023 PREPROCINS Medication List Accurate as of August 30, 2023 1:18 PM. Always use your most recent med list. acetaminophen 325 MG tablet Commonly known as: Tylenol Medication Adjustments for Surgery: Take morning of surgery Notes to patient: IF NEEDED * Effexor XR 150 MG 24 hr capsule Generic drug: venlafaxine XR Medication Adjustments for Surgery: Take night before surgery * venlafaxine XR 37.5 MG 24 hr capsule Commonly known as: Effexor XR Medication Adjustments for Surgery: Take night before surgery Mirena (52 MG) 20 MCG/DAY IUD Generic drug: levonorgestrel multivitamin capsule Medication Adjustments for Surgery: Hold morning of surgery mupirocin 2 % ointment Commonly known as: Bactroban Medication Adjustments for Surgery: Other (Comment) Notes to patient: Pt states, no longer using this medication ondansetron ODT 8 MG disintegrating tablet Commonly known as: Zofran-ODT Medication Adjustments for Surgery: Take morning of surgery Notes to patient: IF NEEDED promethazine 12.5 MG tablet Commonly known as: Phenergan Medication Adjustments for Surgery: Take night before surgery Xanax 0.25 MG tablet Generic drug: ALPRAZolam Medication Adjustments for Surgery: Take morning of surgery Notes to patient: IF NEEDED * This list has 2 medication(s) that are the same as other medications prescribed for you. Read the directions carefully, and ask your doctor or other care provider to review them with you. Additional Instructions: You may take your prescription pain medication. You may take Tylenol for pain. NO Motrin, ibuprofen or Advil for 24 hours prior to surgery or longer if instructed by your surgeon. NO Aleve or Naprosyn for 5 days prior to surgery or longer if instructed by your surgeon. IF YOU TAKE BLOOD THINNERS OR ASPIRIN: DO NOT TAKE ASPIRIN OR ANY MEDICATIONS THAT MAY CONTAIN ASPIRIN 5 DAYS PRIOR TO SURGERY. Follow any instructions given to you by Dr. TATY Massey with an antibacterial soap such as Dial or Safeguard or shower kit provided to you before coming to the hospital. No makeup, lotion, powder, deodorant or body spays. No hair products. Remove all jewelry and leave it at home. Wear loose comfortable clothing to go home in. You may brush your teeth morning of surgery. Do not wear contacts day of surgery. No marijuana (THC), smoking or alcohol for 24 hours prior to surgery. Please arrange for a responsible adult to drive you home after your surgery and that there is a responsible adult with you for 24 hours post discharge. If you have specific questions, please call your surgeon. You will receive a call the day before your surgery to verify your arrival time and date. You will be asked to arrive at least two hours prior to your scheduled surgery time. Please bring your [facility] Surgical folder and medication list with you day of surgery. We encourage you to write down any questions you may have for the surgeon, anesthesiologist, or other members of the surgical team and bring it with you the day of surgery. Please bring photo ID and insurance information. Pre-operative information - Control and Anesthesia Drug Interactions During your upcoming anesthesia care, you may receive one of a few drugs that may reduce the effectiveness of your control medications. Possible medications given may include Emend? and/or Sugammadex. You need to be aware of this if you are on any type of hormonal contraceptive control medication as this could be affected. If you have any further questions about this information, including which type of control is best for you, please speak with your MINE UTILITY OPERATOR provider. [facility] PREPROCINS Medication List Accurate as of August 30, 2023 1:13 PM. Always use your most recent med list. acetaminophen 325 MG tablet Commonly known as: Tylenol Medication Adjustments for Surgery: Take morning of surgery Notes to patient: IF NEEDED * Effexor XR 150 MG 24 hr capsule Generic drug: venlafaxine XR Medication Adjustments for Surgery: Take night before surgery * venlafaxine XR 37.5 MG 24 hr capsule Commonly known as: Effexor XR Medication Adjustments for Surgery: Take night before surgery Mirena (52 MG) 20 MCG/DAY IUD Generic drug: levonorgestrel multivitamin capsule Medication Adjustments for Surgery: Hold morning of surgery mupirocin 2 % ointment Commonly known as: Bactroban Medication Adjustments for Surgery: Other (Comment) Notes to patient: Pt states, no longer using this medication ondansetron ODT 8 MG disintegrating tablet Commonly known as: Zofran-ODT Medication Adjustments for Surgery: Take morning of surgery Notes to patient: IF NEEDED promethazine 12.5 MG tablet Commonly known as: Phenergan Medication Adjustments for Surgery: Take night before surgery Xanax 0.25 MG tablet Generic drug: ALPRAZolam Medication Adjustments for Surgery: Take morning of surgery Notes to patient: IF NEEDED * This list has 2 medication(s) that are the same as other medications prescribed for you. Read the directions carefully, and ask your doctor or other care provider to review them with you. Additional Instructions: You may take your prescription pain medication. You may take Tylenol for pain. NO Motrin, ibuprofen or Advil for 24 hours prior to surgery or longer if instructed by your surgeon. NO Aleve or Naprosyn for 5 days prior to surgery or longer if instructed by your surgeon. IF YOU TAKE BLOOD THINNERS OR ASPIRIN: DO NOT TAKE ASPIRIN OR ANY MEDICATIONS THAT MAY CONTAIN ASPIRIN 5 DAYS PRIOR TO SURGERY. Follow any instructions given to you by Dr. TATY Massey with an antibacterial soap such as Dial or Safeguard or shower kit provided to you before coming to the hospital. No makeup, lotion, powder, deodorant or body spays. No hair products. Remove all jewelry and leave it at home. Wear loose comfortable clothing to go home in. You may brush your teeth morning of surgery. Do not wear contacts day of surgery. No marijuana (THC), smoking or alcohol for 24 hours prior to surgery. Please arrange for a responsible adult to drive you home after your surgery and that there is a responsible adult with you for 24 hours post discharge. If you have specific questions, please call your surgeon. You will receive a call the day before your surgery to verify your arrival time and date. You will be asked to arrive at least two hours prior to your scheduled surgery time. Please bring your [facility] Surgical folder and medication list with you day of surgery. We encourage you to write down any questions you may have for the surgeon, anesthesiologist, or other members of the surgical team and bring it with you the day of surgery. Please bring photo ID and insurance information. Normal [facility] Progress Noteon 08-30-2023 Progress Note ADVANCED CARE PLANMEI QUANG Suggs : 1995 Primary Care Physician: Nunu Cortez MD The patient and/or family/surrogate voluntarily agreed to participate in ACP services. Patient?s cognitive capacity: A+Ox3 Code Status: [x] [FULL CODE - Continue all advanced life support: CPR,intubation,invasive procedures] [_] [DNR-CCA - DO NOT do CPR, intubation] [_] [DNR-STUNNER - Comfort care only] [_] DNR form [was/was not] signed Summary of discussion: The patient health care POA/ surrogate is the following: not assigned. [Condition that instigated the ACP on this DOS, relevant PMH, functional status, goals of care, and whom this was discussed with including names and relationship to the patient, and any relevant advance care documentation discussion] I answered all the patient/family questions that I could within the range and scope of the current medical situation. We discussed the medical conditions, risks, benefits, outcomes, and goals of care at this time for the patient's medical issues at hand in the face of the patient's chronic issues and current presentation. Total time spent: 5 minutes were spent discussing the patient's resuscitation status, advance care planning, and end of life care, with patient and/or family/surrogate. Nasima Honeycutt APRN - CHILD DAY CARE TEACHER Acute care [facility] 08/30/2023, 1:[address] 08-27-[address] Silva's office updating of patient's schedule lap huyen on 09/02 with plans to keep her for observation. Requesting specific preop medications and dosing and specific postop recommendations for blood work/treatment. I spoke to our hematology department who recommends orders from patient's primary chrome polisher and would only recommend referral to our hematology in light of concerns or complications. LVM requesting callback to office with recommendations. [address] 08-13-[address] Posey and Dr. Umaña - plan will be to keep patient in the hospital for observation. I will contact Dr. Silva next week for specific instructions regarding preop dosing, etc. Spoke to patient and relayed the plan. She states that she required further treatment after a colonoscopy and is comfortable staying overnight in the hospital for obs. [address] 08-12-2023 36 I will contact her o nce I have a plan from hematology. [facility] 36 Patient called . She spoke to Dr Luke and is confused. She states the Dr Luke told her that we wanted her to see a [facility]. And that this may prolong her surgery date. I read the notes to her but she wants to speak to [place] to get a clear picture of what the game plan is. She wants surgery soon and does not want for it to be prolonged [address] 08-10-2023 36 Call from patient - concerned with note in this call She needs to have repeated MRI for surveillance of pancreatic cyst in 1 year- cancer be with her PCP if she does not want to travel for office visits. Patient states she was unaware of any concern for cancer. Explained to patient that cancer was a typo- should read CAN be with her PCP. Patient expressed understanding. [place] [address] Called and lvm statt ing that we are waiting on a surgery date from Dr Posey [facility] 36 Jo, please conta ct patient and schedule lap huyen. I am still coordinating with heme/onc regarding perioperative management, but this should not prohibit scheduling. Thanks. [place] [address] Name of caller: Ginger griffin Contact phone number: [phone] Relationship to Patient: patient Provider: Dr. Posey Practice: [facility] Chief Complaint/Reason for Call: Patient states that she has been waiting to hear from the office and noticed a note in her Mychart stating Patient would like a call back with status of surgery and admission. Please call patient. Patient states that she would like to receive a call back to discuss scheduling. Please advise. Best time of day caller can be reached: Any Patient advised that office/PCP has 24-48 business hours to return their call: No [place] [id number] 36 Patient would like a call back with status of surgery and admission. Please call patient [place] [address]on 08-05-[address] Posey's desk for date [place] [address] Dr[address] Silva's office no te - received and in your box for review. [place] [address]on 08-04-[address] Silva's office note - please obtain for review. Spoke to Dr. Posey. Will plan to place her as first case of the day to allow for longer stay for repeat testing postop. Hopefully this will not result in an overnight stay, but we can keep her overnight if needed. Will plan to treat preop and consult hematology for postop evaluation. Please let the patient know and work with Dr. Posey to schedule. Thanks! [place] [address] Rosario 's recommendations. Patient expressed understanding. Requests for Dr. Rosario to see her again if her PCP is unable to order testing. Patient instructed to call with any future questions. [place] [address] Son Rosario MD Y ou She is cleared to have surgery. 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 [facility] 36on 08-03-2023 36 Call from patient. Javier gr she already saw results and unclear why she needs to come in for appointment with Dr. Rosario when it says it is benign. Patient states she lives far away (30 minutes). Patient would just like clearance to have surgery with Dr. Posey. [facility] 36 Spoke with patient. Scheduled appt for 08/04/2023 [facility] MD Astrid Coe MA Let see her in clinic. [facility] ----- Message from A kylee Rosario MD sent at 08/02/2023 11:58 AM EDT ----- Let see her in clinic. [facility] 36on 08-02-2023 36 Patient called in the medical center that her Dr Bakari Silva [facility] spoke with her regarding surgery with us. Due to her bleeding disorder Dr Silva asked her to ask us if she could stay for an overnight observation for her surgery (Lap Huyen w Dr Posey) for medication purposes. Patient also was in question about if she may have to have a Hematology Dr here at [facility] since her other is at [facility] if problems arise. DP [facility] No Panel InformationOrdered By: Anthony Ratliff on 07-16-2023 Ao prox AP 79.4 cm [facility] Work Phone: Ao prox PSV 79.4 cm/s [facility] Work Phone: Celiac Artery Inspiration PSV 223.1 cm/s [facility] Phone: Celiac PSV 225.1 cm/s [facility] Work Phone: Common Hepatic PSV 161.9 cm/s [facility] Work Phone: BUZZ PSV 100.2 cm/s [facility] Work Phone: Mid SMA PSV 57.4 cm/s [facility] Work Phone: Origin SMA PSV 220.0 cm/s [facility] Work Phone: Prox SMA PSV 176.0 cm/[facility] Work Phone: Splenic PSV 43.2 cm/s [facility] Work Phone: No Panel Informationon 07-15 Mesenteric arteries are without evidence of significant stenosis. Limitations as described below. Mesenteric Mesenteric arteries are without evidence of significant stenosis. Music Box Mechanic Details A hassan scale, color Doppler imaging and spectral Doppler analysis ultrasound was performed. During the study longitudinal and transverse views were obtained. Pulsed wave doppler was performed. The exam was performed with the patient in the supine and decubitus position. Overall the study quality was technically difficult. Study was technically difficult due to: bowel gas. CV CPACS Office Visiton 07-07-2023 Follow-up visit [id number] Shelli Suggs michael Hernandez 1995 F Date Provider Department Center 07/07/2023 [id number], SON MG ACH HEP None Family History Problem Relation Age of Onset High Blood Pressure Mother Multiple sclerosis Mother Cancer Paternal Grandmother Family Status - Relation Status Age at Mother Alive Father Alive Maternal Grandmother Alive Maternal Grandfather Paternal Grandmother Paternal Grandfather Alive Level of Service:94990 [place] OFFICE/OUTPATIENT NEW MODERATE MDM 45 MINUTES Reason for Visit and Comments: abdominal mass [Other] - Abdominal mass Normal [facility] Office Visiton 07-05-2023 Follow-up visit [id number] Shelli Suggs michael Hernandez 1995 F Date Provider Department Center 07/05/2023 [id number] SANDERS MG ACH ALS None Family History Problem Relation Age of Onset High Blood Pressure Mother Multiple sclerosis Mother Cancer Paternal Grandmother Family Status - Relation Status Age at Mother Alive Father Alive Maternal Grandmother Alive Maternal Grandfather Paternal Grandmother Paternal Grandfather Alive Level of Service:59105 [place] OFFICE/OUTPATIENT NEW LOW MDM 30 MINUTES Reason for Visit and Comments: 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 female who presents to our general surgery office today for evaluation of chronic postprandial epigastric pain that radiates to the RUQ. She states that she suffered from significant heartburn & nausea while in 2017. After giving , her heartburn persisted and has worsened into postprandial epigastric pain. Attributed this to lactose intolerance, however pain occurs with all PO intake at this time. Has suffered from associated diarrhea until a few month ago, and is now experiencing constipation. Additionally, she she experiences her severe abdominal pain, she also experiences numbness/tingling of her fingers and face, as well as locking of herfingers & hands, which resolves after a short period of time and massaging. Has been evaluated by ER, MRI with no obvious findings. Also reports associated ~40# weight loss over the past few years with these symptoms. Has undergone workup as below. Of note, she did have provoked abdominal cramping and hand cramping during her HIDA scan. PMH significant for von Willebrand's - follows with Dr. Silva at [facility]. FHx significant for MS in her mother and paternal grandmother, who also of pancreatic cancer. PSH significant for open anti-ureteral reflux surgery at 9 months old, . Former smoker. Notes Reviewed: - ER, 06/24/23 - Charlee Fernando APRN, 05/26/23 Data reviewed: - CT abd/pel, 06/24/23: personally interpreted, 1.2cm peripancreatic hypodense focus stable since 06/2022 - Abd US, 06/24/23: unremarkable - HIDA, 06/24/23: EF 80%, severe reproduction of symptoms - GES, 06/08/23: normal gastric emptying - EGD w/ Dr. Begum, 09/22/22: unremarkable, small bowel biopsies unremarkable - Colonoscopy w/ Dr. 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 IBS (irritable bowel syndrome) Vesicoureteral reflux Von Willebrand disease (HCC) Past Surgical History: Procedure Laterality Date SECTION (HISTORICAL) 2017 KIDNEY SURGERY TONSILLECTOMY (HISTORICAL) Family History Problem Relation Name Age of Onset High Blood Pressure Mother Multiple sclerosis Mother Cancer Paternal Grandmother Social History Tobacco Use Smoking status: Former Packs/day: .5 Types: Cigarettes Quit date: 2018 Years since quittin.1 Smokeless tobacco: Never Substance Use Topics Alcohol use: No Current Outpatient Medications Medication Sig Dispense Refill acetaminophen (Tylenol) 325 MG tablet Take by mouth. mupirocin (Bactroban) 2 % ointment every 12 hours. ondansetron ODT (Zofran-ODT) 8 MG disintegrating tablet promethazine (Phenergan) 12.5 MG tablet Take 12.5 mg by mouth every 6 hours as needed. venlafaxine XR (Effexor XR) 150 MG 24 hr capsule venlafaxine XR (Effexor XR) 37.5 MG 24 hr capsule Take 37.5 mg by mouth daily. Do not crush or chew. Xanax 0.25 MG tablet 1 tablet Orally daily prn anxiety for 30 days No current facility-administered medications for this visit. Allergies Allergen Reactions Aspirin Other Due to having a bleeding disorder Other reaction(s): Bleeding Ibuprofen Other Due to having a bleeding disorder Nsaids Other Due to bleeding disorder. Hydrocodone-Acetaminophen Itching Makes face itch. Naproxen Dicyclomine Palpitations PHYSICAL EXAM BP 107/75 (BP Location: Left arm, Patient Position: Sitting, BP Cuff Size: Adult) Pulse (!) 116 Temp 36.9 ?C (98.5 ?F) (Temporal) Ht 5' 2 (1.575 m) Wt 151 lb (68.5 kg) LMP 06/13/2023 (Exact Date) BMI 27.62 kg/m? Physical Exam Constitutional: Appearance: Normal appearance. Not ill-appearing. Pulmonary: Effort: Pulmonary effort is normal. Breath sounds: Grossly normal breath sounds. No stridor. Chest: Chest wall: No tenderness. Abdominal: General: There is no distension. Palpation: Abdomen is soft. There is no mass. Tenderness: There is no rebound. Hernia: no obvious hernia on exam Musculoskeletal: General: No tenderness. Normal range of motion. Right lower leg: No edema. Skin: General: Skin is warm and dry. ASSESSMENT 1. Postprandial epigastric pain 2. Elevated lipase 3. Pancreatic lesion 4. Weight loss Based on today's evaluation, the patient is a candidate for laparoscopic cholecystectomy. PLAN I have recommended referral to Dr. Rosario for evaluation of pancreatic le (more content not included)... [facility] Progress Note Vascular US Mesenter ic Artery Duplex Complete is scheduled for: Date: 07/14/2023 Time: 8:20 am Location: [place] Information relayed to patient via mail, phone and [employer]. Orders in EPIC. Auth NAN [facility] CT ABDOMEN PELVIS W CONTRAST on 07-02-2023 CT ABDOMEN PELVIS W CONTRAST Patient Name: JERRICA SUGGS : 1995 Exam Date/Time: 06/24/2023 23:57 Procedure: CT ABDOMEN PELVIS W CONTRAST Ordering Provider: FONSECA DANIEL Reason For Exam: Pancreatitis, acute, severe --------ADDENDUM #1 -------- Addendum: Recommend 6 month follow up MRCP exam to assess the stability of 1.2 cm peripancreatic hypodense focus. This hypodensity favors a benign process i.e. peripancreatic cyst, enteric cyst or lymph node. Report Dictated on Electronically Signed By: Esvin Brower DO Electronically Signed Date/Time: 07/02/2023 8:51 AM EST --------ORIGINAL REPORT -------- CT ABDOMEN AND PELVIS WITH CONTRAST CLINICAL INDICATION: 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. Leg paresthesias. TECHNIQUE: Multi-axial 3mm sections through the abdomen and pelvis following 75 mL of Isoview contrast media. No oral contrast was administered. Coronal and sagittal reconstructions were reviewed. Dose reduction was employed with automated exposure control. COMPARISON: 07/06/2022. Correlation is made with HIDA scan dated 06/15/2023 FINDINGS: Lung bases: Minimal bibasilar atelectasis Liver: Normal size and contours. No focal lesion. Biliary tree: The gallbladder is unremarkable. No biliary dilatation. Spleen: Normal. Adrenals: Normal. Pancreas: Normal. 1.2 cm ovoid hypodense nodule inferior to the mid pancreatic body, unchanged from prior exam. Kidneys: Symmetric contrast enhancement without evidence of hydronephrosis. No focal renal lesion is identified. Free air or fluid: None. Mesenteric/retroperitoneal: No adenopathy or inflammation. Aorta: Normal caliber. Bowel: Appendix is normal in caliber . No dilatation is noted. Abdominal wall: No ventral hernia is evident. Pelvic organs/viscera: No mass identified. Uterus is anteverted and contains IUD in the uterine endometrial fundus/body. Inguinal lymphadenopathy: None. Osseous structures: No osseous abnormality. IMPRESSION: No acute abdominal or pelvic findings to explain symptoms. 1.2 cm ovoid hypodense focus inferior to the mid pancreatic body, unchanged from prior exam. This may represent a prominent lymph node or peripancreatic cyst. Report Dictated on Electronically Signed By: Esvin Brower DO Electronically Signed Date/Time: 06/25/2023 12:15 AM EST [facility] 1995 [id number] Exam Date/Time: 06/24/2023 23:57 Procedure: CT ABDOMEN PELVIS W CONTRAST Ordering Provider: FONSECA DANIEL Reason For Exam: Pancreatitis, acute, severe CT ABDOMEN AND PELVIS WITH CONTRAST CLINICAL INDICATION: 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. Leg paresthesias. TECHNIQUE: Multi-axial 3mm sections through the abdomen and pelvis following 75 mL of Isoview contrast media. No oral contrast was administered. Coronal and sagittal reconstructions were reviewed. Dose reduction was employed with automated exposure control. COMPARISON: 07/06/2022. Correlation is made with HIDA scan dated 06/15/2023 FINDINGS: Lung bases: Minimal bibasilar atelectasis Liver: Normal size and contours. No focal lesion. Biliary tree: The gallbladder is unremarkable. No biliary dilatation. Spleen: Normal. Adrenals: Normal. Pancreas: Normal. 1.2 cm ovoid hypodense nodule inferior to the mid pancreatic body, unchanged from prior exam. Kidneys: Symmetric contrast enhancement without evidence of hydronephrosis. No focal renal lesion is identified. Free air or fluid: None. Mesenteric/retroperitoneal: No adenopathy or inflammation. Aorta: Normal caliber. Bowel: Appendix is normal in caliber . No dilatation is noted. Abdominal wall: No ventral hernia is evident. Pelvic organs/viscera: No mass identified. Uterus is anteverted and contains IUD in the uterine endometrial fundus/body. Inguinal lymphadenopathy: None. Osseous structures: No osseous abnormality. IMPRESSION: No acute abdominal or pelvic findings to explain symptoms. 1.2 cm ovoid hypodense focus inferior to the mid pancreatic body, unchanged from prior exam. This may represent a prominent lymph node or peripancreatic cyst. Report Dictated on Electronically Signed By: Esvin Brower DO Electronically Signed Date/Time: 06/25/2023 12:15 AM EST Patient presents to the ED due to abdominal pain and other strange symptoms after having a HIDA scan at [facility] yesterday. Patient states that since the scan her extremities have been falling asleep. Patient is mostly complaining of abdominal pain, but wants to get the other strange symptoms checked out. Patient also states I feel like I have been getting electrocuted through my body today and that started this morning. Patient ambulatory through triage. [facility] CT ABDOMEN PELVIS WO IV CONT [facility] 07-02-2023 CT ABDOMEN PELVIS WO IV CONTRAST Patient Name: JERRICA SUGGS : 1995 Exam Date/Time: 07/06/2022 16:24 Procedure: CT ABDOMEN PELVIS WO IV CONTRAST Ordering Provider: DAVE GREGORY Reason For Exam: 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, acute, nonlocalized --------ADDENDUM #1 -------- Examination from 06/24/2023 reviewed. 1.2 cm ovoid hypodense lesion is unchanged compared to 07/06/2022. Findings again could relate either to a prominent lymph node or peripancreatic cyst. Report Dictated on Electronically Signed By: Mendez Mathis MD Electronically Signed Date/Time: 07/02/2023 5:54 PM EST --------ORIGINAL REPORT -------- EXAMINATION: CT of the abdomen and pelvis without contrast. EXAM DATE AND TIME: 07/06/2022 4:24 PM EDT INDICATION: 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, acute, nonlocalized ADDITIONAL INFORMATION: 27-year-old female with acute abdominal pain presents for evaluation COMPARISON: None LIMITATIONS: Evaluation of the vasculature as well as the solid and hollow viscera is limited due to the lack of intravenous and oral contrast. TECHNIQUE: Contiguous multiplanar 3 mm images were obtained from the levels of the lung bases through the pelvis without contrast. Images were reformatted in coronal and sagittal projections using the raw CT data and were interpreted in conjunction with the axial images to render the findings listed below. Dose reduction was employed with automated exposure control. FINDINGS: Included images of the lower thorax: No focal lung consolidation or pleural effusion. Hepatobiliary: Unremarkable liver without biliary dilation evident. Gallbladder appears normal. Spleen: Unremarkable. Pancreas: Unremarkable. Adrenal glands: Unremarkable. Kidneys, ureters and bladder: No hydronephrosis or nephrolithiasis. The urinary bladder is unremarkable in appearance. Abdominal and pelvic vasculature: Unremarkable. Gastrointestinal: No evidence of obstruction. The appendix is within normal limits. Peritoneum, retroperitoneum and mesentery: No inflammatory change, pneumoperitoneum, free fluid or abnormal mass is shown. Lymph nodes: No abdominal or pelvic lymphadenopathy is evident. Solid pelvic viscera: An IUD is present within the endometrium. Visualized musculoskeletal structures: No acute fracture or destructive osseous lesion is identified. Some soft tissue stranding is present in the right gluteal region. A couple of small specks of gas are noted in this area as well (series 2, image 107). IMPRESSION: 1. No acute intra-abdominal process. 2. Soft tissue stranding and some specks of gas noted in the right gluteal region. Clinical correlation for a history of injection is recommended. Report Dictated on Electronically Signed By: Mendez Mathis Electronically Signed Date/Time: 07/06/2022 4:38 PM EDT Patient Name: [facility] SUGG[facility] 1995 [id number] Exam Date/Time: 07/06/2022 16:24 Procedure: CT ABDOMEN PELVIS WO IV CONTRAST Ordering Provider: DAVE GREGORY Reason For Exam: 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, acute, nonlocalized EXAMINATION: CT of the abdomen and pelvis without contrast. EXAM DATE AND TIME: 07/06/2022 4:24 PM EDT INDICATION: 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, acute, nonlocalized ADDITIONAL INFORMATION: 27-year-old female with acute abdominal pain presents for evaluation COMPARISON: None LIMITATIONS: Evaluation of the vasculature as well as the solid and hollow viscera is limited due to the lack of intravenous and oral contrast. TECHNIQUE: Contiguous multiplanar 3 mm images were obtained from the levels of the lung bases through the pelvis without contrast. Images were reformatted in coronal and sagittal projections using the raw CT data and were interpreted in conjunction with the axial images to render the findings listed below. Dose reduction was employed with automated exposure control. FINDINGS: Included images of the lower thorax: No focal lung consolidation or pleural effusion. Hepatobiliary: Unremarkable liver without biliary dilation evident. Gallbladder appears normal. Spleen: Unremarkable. Pancreas: Unremarkable. Adrenal glands: Unremarkable. Kidneys, ureters and bladder: No hydronephrosis or nephrolithiasis. The urinary bladder is unremarkable in appearance. Abdominal and pelvic vasculature: Unremarkable. Gastrointestinal: No evidence of obstruction. The appendix is within normal limits. Peritoneum, retroperitoneum and mesentery: No inflammatory change, pneumoperitoneum, free fluid or abnormal mass is shown. Lymph nodes: No abdominal or pelvic lymphadenopathy is evident. Solid pelvic viscera: An IUD is present within the endometrium. Visualized musculoskeletal structures: No acute fracture or destructive osseous lesion is identified. Some soft tissue stranding is present in the right gluteal region. A couple of small (more content not included)... Normal [facility] 36on 06-28-2023 36 Pt seen a results vi a MyChart Thank you Normal [facility] 36 ----- Message from Home Jacinto PA-C sent at 06/23/2023 2:40 PM EST ----- HIDA scan shows normal biliary function in response to CCK. Normal [facility] CT Abdomen and Pelvis W cont rast Heather 06-25-2023 No acute abdominal o r pelvic findings to explain symptoms. 1.2 cm ovoid hypodense focus inferior to the mid pancreatic body, unchanged from prior exam. This may represent a prominent lymph node or peripancreatic cyst. Report Dictated on Electronically Signed By: Esvin Brower DO Electronically Signed Date/Time: 06/25/2023 12:15 AM [facility] RADIOLOGY SYSTEM Patient Name: JERRICA CEE : 1995 Exam Date/Time: 06/24/2023 23:57 Procedure: CT ABDOMEN PELVIS W CONTRAST Ordering Provider: FONSECA DANIEL Reason For Exam: Pancreatitis, acute, severe CT ABDOMEN AND PELVIS WITH CONTRAST CLINICAL INDICATION: 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. Leg paresthesias. TECHNIQUE: Multi-axial 3mm sections through the abdomen and pelvis following 75 mL of Isoview contrast media. No oral contrast was administered. Coronal and sagittal reconstructions were reviewed. Dose reduction was employed with automated exposure control. COMPARISON: 07/06/2022. Correlation is made with HIDA scan dated 06/15/2023 FINDINGS: Lung bases: Minimal bibasilar atelectasis Liver: Normal size and contours. No focal lesion. Biliary tree: The gallbladder is unremarkable. No biliary dilatation. Spleen: Normal. Adrenals: Normal. Pancreas: Normal. 1.2 cm ovoid hypodense nodule inferior to the mid pancreatic body, unchanged from prior exam. Kidneys: Symmetric contrast enhancement without evidence of hydronephrosis. No focal renal lesion is identified. Free air or fluid: None. Mesenteric/retroperitoneal: No adenopathy or inflammation. Aorta: Normal caliber. Bowel: Appendix is normal in caliber . No dilatation is noted. Abdominal wall: No ventral hernia is evident. Pelvic organs/viscera: No mass identified. Uterus is anteverted and contains IUD in the uterine endometrial fundus/body. Inguinal lymphadenopathy: None. Osseous structures: No osseous abnormality. [facility] RADIOLOGY SYSTEM Esvin Brower DO - 06/25/2023 Patient Name: JERRICA SUGGS : 1995 Exam Date/Time: 06/24/2023 23:57 Procedure: CT ABDOMEN PELVIS W CONTRAST Ordering Provider: FONSECA DANIEL Reason For Exam: Pancreatitis, acute, severe CT ABDOMEN AND PELVIS WITH CONTRAST CLINICAL INDICATION: 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. Leg paresthesias. TECHNIQUE: Multi-axial 3mm sections through the abdomen and pelvis following 75 mL of Isoview contrast media. No oral contrast was administered. Coronal and sagittal reconstructions were reviewed. Dose reduction was employed with automated exposure control. COMPARISON: 07/06/2022. Correlation is made with HIDA scan dated 06/15/2023 FINDINGS: Lung bases: Minimal bibasilar atelectasis Liver: Normal size and contours. No focal lesion. Biliary tree: The gallbladder is unremarkable. No biliary dilatation. Spleen: Normal. Adrenals: Normal. Pancreas: Normal. 1.2 cm ovoid hypodense nodule inferior to the mid pancreatic body, unchanged from prior exam. Kidneys: Symmetric contrast enhancement without evidence of hydronephrosis. No focal renal lesion is identified. Free air or fluid: None. Mesenteric/retroperitoneal: No adenopathy or inflammation. Aorta: Normal caliber. Bowel: Appendix is normal in caliber . No dilatation is noted. Abdominal wall: No ventral hernia is evident. Pelvic organs/viscera: No mass identified. Uterus is anteverted and contains IUD in the uterine endometrial fundus/body. Inguinal lymphadenopathy: None. Osseous structures: No osseous abnormality. IMPRESSION: No acute abdominal or pelvic findings to explain symptoms. 1.2 cm ovoid hypodense focus inferior to the mid pancreatic body, unchanged from prior exam. This may represent a prominent lymph node or peripancreatic cyst. Report Dictated on Electronically Signed By: Esvin Brower DO Electronically Signed Date/Time: 06/25/2023 12:15 AM EST [employer] CT Abdomen and Pelvis W cont rast IVOrdered By: Esvin Brower on 06-25-2023 [employer] Work Phone: 36on 06-24-2023 36 Called and spoke wit h patient. She has already reached out to [facility] and was told someone will call her with 48hrs. Thank you Normal [employer] [facility] 36 Name of caller: Ginger griffin Contact phone number: [phone] (V) Relationship to Patient: patient Provider: Dr. Posey Practice: [facility] Chief Complaint/Reason for Call: Jerrica is requesting a call back to schedule a new patient appointment with 06/24/23 referral for Dx: Postprandial RUQ pain. Please contact Jerrica and advise. Best time of day caller can be reached: Any Patient advised that office/PCP has 24-48 business hours to return their call: Yes Normal [employer] [facility] CBC (HEMOGRAM)on 06-24-2023 Erythrocyte distribution width (RBC) [Ratio] 11.9 % Normal 11.5-15.0 [facility] Comment on above: Performed By: #### L [id number] ####Machine Oiler: RADHA ANDRECER ([id number])[facility] (SBHLAB)[address] Hematocrit (Bld) [Volume fraction] 43.0 % Normal 35.0-47.0 [facility] Comment on above: Performed By: #### L [id number] ####Machine Oiler: RADHA CLAIRE ([id number])[facility] (SBAB)[address] Hemoglobin (Bld) [Mass/Vol] 14.6 g/dL Normal 11.7-16.0 [facility] Comment on above: Performed By: #### L [id number] ####Machine Oiler: RADHA CLAIRE ([id number])[facility] (SBAB)[address] MCH (RBC) [Entitic mass] 30.4 pg Normal 26.0-34.0 [facility] Comment on above: Performed By: #### L [id number] ####Machine Oiler: RADHA MCLEANMARÍA ELENA ([id number])[facility] EL[facility] (SBHLAB)[address] [place] [address] MCHC 34.0 % Normal 30.5-36.0 [facility] Comment on above: Performed By: #### L AB294 ####Machine Oiler: RADHA CLAIRE ([id number])[facility] (SBHLAB)[address] MCV (RBC) [Entitic vol] 89.6 fL Normal 77.0-99.0 [facility] Comment on above: Performed By: #### L AB294 ####Machine Oiler: RADHA CLAIRE ([id number])[facility] (SBAB)[address] Platelet mean volume (Bld) [Entitic vol] 10.1 fL Normal 9.0-12.7 [facility] Comment on above: Performed By: #### L AB294 ####Machine Oiler: RADHA CLAIRE ([id number])[facility]ITALIla PIPERDIGN[facility] (SBHLAB)[address] Platelets (Bld) [#/Vol] 259 10*3/uL Normal 140-440 [facility] Comment on above: Performed By: #### L AB294 ####Machine Oiler: RADHA CLAIRE ([id number])[facility] ([facility] RBC (Bld) [#/Vol] 4.80 10*6/uL Normal 3.80-5.20 [facility] Comment on above: Performed By: #### L AB294 ####Machine Oiler: RADHA CLAIRE ([id number])[facility] ([facility] [place] [address] WBC (Bld) [#/Vol] 8.7 10*3/uL Normal 3.6-10.7 [facility] Comment on above: Performed By: #### L AB294 ####Machine Oiler: RADHA CLAIRE ([id number])[facility] ([facility])[address] [place] [address] CBC panel Auto (Bld)on Erythrocyte distribution width (RBC) [Ratio] 11.9 % 11.5 - 15.0 % [facility] Hematocrit (Bld) [Volume fraction] 43.0 % 35.0 - 47.0 % [facility] Hemoglobin (Bld) [Mass/Vol] 14.6 g/dL 11.7 - 16.0 g/dL [facility] Interpretation and review of laboratory results Normal [facility] MCH (RBC) [Entitic mass] 30.4 pg 26.0 - 34.0 pg [facility] MCHC (RBC) [Mass/Vol] 34.0 % 30.5 - 36.0 % [facility] MCV (RBC) [Entitic vol] 89.6 fL 77.0 - 99.0 fL [facility] Platelet mean volume (Bld) [Entitic vol] 10.1 fL 9.0 - 12.7 fL [facility] Platelets (Bld) [#/Vol] 259 10*3/uL 140 - 440 10*3/uL [facility] RBC (Bld) [#/Vol] 4.80 10*6/uL 3.80 - 5.20 10*6/uL [facility] WBC (Bld) [#/Vol] 8.7 10*3/uL 3.6 - 10.7 10*3/uL [facility] COMPLETE URINALYSISon 2023 BILIRUBIN, TOTAL PRESENCE IN URINE Negative Normal Negative [facility] Comment on above: Performed By: #### L [id number] ####Machine Oiler: RADHA CLAIRE ([id number])[facility] ([facility])[address] [place] [address] Clarity (U) Clear Normal Clear [facility] Comment on above: Performed By: #### L AB347 ####Machine Oiler: RADHA CLAIRE ([id number])[facility] ([facility])[address] [place] [address] [place] Color (U) Light Yellow Normal Lt. Yellow [facility] Comment on above: Performed By: #### L AB347 ####Machine Oiler: RADHA CLAIRE ([id number])[facility] ([facility] [place] [address] [place] GLUCOSE (MG/DL) IN URINE Normal Normal Normal (<70) [facility] Comment on above: Performed By: #### L AB347 ####Machine Oiler: RADHA CLAIRE ([id number])[facility] ([facility] [place] [address] HEMOGLOBIN PRESENCE IN URINE Negative Normal Negative [facility] Comment on above: Performed By: #### L AB347 ####Machine Oiler: RADHA CLAIRE ([id number])[facility] (SBHLAB)[address] Ketones Ql (U) Negative Normal Negative [facility] Comment on above: Performed By: #### L AB347 ####Machine Oiler: RADHA CLAIRE ([id number])[facility]ITAL[facility]la MABRYRafal (SBHLAB)[address] LEUKOCYTE ESTERASE PRESENCE IN URINE BY TEST STRIP Negative Normal Negative [facility] Comment on above: Performed By: #### L AB347 ####Machine Oiler: RADHA CLAIRE ([id number])[facility] (SBHLAB)[address] NITRITE PRESENCE IN URINE Negative Normal Negative [facility] Comment on above: Performed By: #### L AB347 ####Machine Oiler: RADHA MCLEANMARÍA ELENA ([id number])[facility] ([facility] pH (U) 7.0 [pH] Normal 5.0-8.0 [facility] Comment on above: Performed By: #### L AB347 ####Machine Oiler: RADHA CLAIRE ([id number])[facility] ([facility] Protein (U) [Mass/Vol] Negative Normal Negative [facility] Comment on above: Performed By: #### L AB347 ####Machine Oiler: RADHA CLAIRE ([id number])[facility] ([facility])[address] Specific gravity (U) [Rel density] 1.014 Normal 1.005-1.03 0 [facility] Comment on above: Performed By: #### L AB347 ####Machine Oiler: RADHA CLAIRE ([id number])[facility] ([facility])[address] UROBILINOGEN (MG/DL) IN URINE Normal Normal Normal (0-1) [facility] Comment on above: Performed By: #### L [id number] ####Machine Oiler: RADHA CLAIRE ([id number])[facility]ITALA [facility] (SBHLAB)[address] COMPREHENSIVE METABOLIC PANE Ray 06-24-2023 Albumin [Mass/Vol] 4.0 g/dL Normal 3.5-5.0 [facility] Comment on above: Performed By: #### L AB143, LAB17, [id number], LAB99 ####Machine Oiler: RADHA CLAIRE ([id number])[facility]ITALA [place] (SBHLAB)[address] ALP [Catalytic activity/Vol] 70 U/L Normal 38-126 [facility] Comment on above: Performed By: #### L AB143, LAB17, [id number], LAB99 ####Machine Oiler: RADHA CLAIRE ([id number])[facility] (SBHLAB)[address] ALT [Catalytic activity/Vol] 36 U/L High 0-34 [facility] Comment on above: Performed By: #### L AB143, LAB17, UNC341, LAB99 ####Machine Oiler: RADHA CLAIRE ([id number])[facility] (SBHLAB)[address] Anion gap [Moles/Vol] 9 mmol/L Normal 3-13 [facility] Comment on above: Performed By: #### L AB143, LAB17, OZF048, LAB99 ####Machine Oiler: RADHA CLAIRE ([id number])[facility] [place] (SBHLAB)[address] AST [Catalytic activity/Vol] 30 U/L Normal 15-46 [facility] Comment on above: Performed By: #### L AB143, LAB17, OFG116, LAB99 ####Machine Oiler: RADHA CLAIRE ([id number])[facility]ELIZDIGN[facility] (SBHLAB)[address] Bilirubin [Mass/Vol] 0.1 mg/dL Low 0.2-1.3 [facility] Comment on above: Performed By: #### L AB143, LAB17, EQU900, LAB99 ####Machine Oiler: RADHA MCLEANMARÍA ELENA ([id number])[facility]ITAL[facility]la MABRYN (SBHLAB)[address] Calcium [Mass/Vol] 9.2 mg/dL Normal 8.4-10.4 [facility] Comment on above: Performed By: #### L AB143, LAB17, GGJ076, LAB99 ####Machine Oiler: RADHA CLAIRE ([id number])[facility]ITAL[facility] MABRYN (SBHLAB)[address] Chloride [Moles/Vol] 102 mmol/L Normal 98-107 [facility] Comment on above: Performed By: #### Rickey AB143, LAB17, NCK458, LAB99 ####Machine Oiler: RADHA CLAIRE ([id number])[facility]ITAL[facility] [place] (SBHLAB)[address] CO2 [Moles/Vol] 28 mmol/L Normal 22-30 [facility] Comment on above: Performed By: #### L AB143, LAB17, WTM724, LAB99 ####Machine Oiler: RADHA CLAIRE ([id number])[facility]ITAL[facility] MABRYN (SBHLAB)[address] Creatinine [Mass/Vol] 0.74 mg/dL Normal 0.52-1.04 [facility] Comment on above: Performed By: #### L AB143, LAB17, OHV480, LAB99 ####Machine Oiler: RADHA CLAIRE ([id number])[facility]ITAL[facility] [place] (SBHLAB)[address] GLOMERULAR FILTRATION RATE ML/MIN/1.73 SQ M.PREDICTED >90.0 Normal >60.0 [facility] Comment on above: Result Comment: Calc ulation based on the Chronic Kidney Disease Epidemiology Collaboration (CKD-EPI) equation refit without adjustment for race Performed By: #### L AB143, LAB17, GZH567, LAB99 ####Machine Oiler: RADHA CLAIRE ([id number])[facility]ITAL[facility] [place] (SBHLAB)[address] Glucose [Mass/Vol] 123 mg/dL High 70-100 [facility] Comment on above: Performed By: #### L AB143, LAB17, MDT147, LAB99 ####Machine Oiler: RADHA CLAIRE ([id number])[facility]ITALIla PIPERDIGNITY [facility] (SBHLAB)[address] Potassium [Moles/Vol] 3.5 mmol/L Normal 3.5-5.1 [facility] Comment on above: Performed By: #### L AB143, LAB17, PVF395, LAB99 ####Machine Oiler: RADHA MCLEANMARÍA ELENA ([id number])[facility] ([facility]HLAB)[address] Protein [Mass/Vol] 7.1 g/dL Normal 6.3-8.2 [facility] Comment on above: Performed By: #### L [id number], LAB17, [id number], LAB99 ####Machine Oiler: RADHA CLAIRE ([id number])[facility] ([facility])[address] Sodium [Moles/Vol] 139 mmol/L Normal 135-145 [facility] Comment on above: Performed By: #### L [id number], LAB17, [id number], LAB99 ####Machine Oiler: RADHA CLAIRE ([id number])[facility] (SB[facility]AB)155 [place] [address] [place] Urea nitrogen [Mass/Vol] 8 mg/dL Normal 7-17 [facility] Comment on above: Performed By: #### L AB143, LAB17, [id number], LAB99 ####Machine Oiler: RADHA CLAIRE ([id number])[facility] ([facility])[address] Abdomen and Pelvis W cont rast Heather 06-24-2023 Radiology Study observation (narrative) [facility] Comprehensive metabolic 1998 panelon 06-24-2023 Albumin [Mass/Vol] 4.0 g/dL 3.5 - 5.0 g/dL [facility] ALP [Catalytic activity/Vol] 70 U/L 38 - 126 U/L [facility] ALT [Catalytic activity/Vol] 36 U/L High 0 - 34 U/L [facility] Anion gap [Moles/Vol] 9 mmol/L 3 - 13 mmol/L [facility] AST [Catalytic activity/Vol] 30 U/L 15 - 46 U/L [facility] Bilirubin [Mass/Vol] 0.1 mg/dL Low 0.2 - 1 .3 mg/dL [facility] Calcium [Mass/Vol] 9.2 mg/dL 8.4 - 10. 4 mg/dL [facility] Chloride [Moles/Vol] 102 mmol/L 98 - 10 7 mmol/L [facility] CO2 [Moles/Vol] 28 mmol/L 22 - 30 mmol/L [facility] Creatinine [Mass/Vol] 0.74 mg/dL 0.52 - 1.04 mg/dL [facility] GFR/1.73 sq M.predicted MDRD (S/P/Bld) [Vol rate/Area] - PINF [facility] Comment on above: Calculation based on the Chronic Kidney Disease Epidemiology Collaboration (CKD-EPI) equation refit without adjustment for race Glucose [Mass/Vol] 123 mg/dL High 70 - 100 mg/dL [facility] Potassium [Moles/Vol] 3.5 mmol/L 3.5 - 5.1 mmol/L [facility] Protein [Mass/Vol] 7.1 g/dL 6.3 - 8.2 g/dL [facility] Sodium [Moles/Vol] 139 mmol/L 135 - 145 mmol/L [facility] Urea nitrogen [Mass/Vol] 8 mg/dL 7 - 17 mg/dL [facility] ED Nursing Noteon 06-24-2023 ED Nursing Note Per ED reg, patient states that the doctor is trying to poison her. Anyi Ruelas RN 06/24/23 2200 Normal [facility] ED Nursing Note Patient presents to the ED due to abdominal pain and other strange symptoms after having a HIDA scan at [facility] yesterday. Patient states that since the scan her extremities have been falling asleep. Patient is mostly complaining of abdominal pain, but wants to get the other strange symptoms checked out. Patient also states I feel like I have been getting electrocuted through my body today and that started this morning. Patient ambulatory through triage. [facility] ED Provider Noteon ED Provider Note EMERGENCY DEPARTMENT ENCOUNTER Pt Name: Jerrica Suggs Birthdate 1995 Date of evaluation: 06/24/2023 ED Provider: Ayad Fonseca APRN - CHILD DAY CARE TEACHER I have evaluated this patient on my own, per my scope of practice with an attending physician available for consultation. CHIEF COMPLAINT Chief Complaint Patient presents with Abdominal Pain HISTORY OF PRESENT ILLNESS (Location/Symptom, Timing/Onset, Context/Setting, Quality, Duration, Modifying Factors, Severity) Note limiting factors. I wore appropriate PPE for the entirety of this encounter. HPI Jerrica Suggs is a 28 y.o. who presents to the emergency department with chief complaint of with a year and a half of abdominal pain patient states worsening symptoms since getting a HIDA scan 2 days ago. She complains of right upper quadrant abdominal pain states pain waxes and wanes in severity states when he gets severe her hands will cramp up and she will get muscle spasming in various locations. She has had an extensive workup as an outpatient that showed normal HIDA scan, she had an ultrasound over a year ago she had an EGD and a colonoscopy that were normal. Nursing Notes were reviewed. Limitations to history: None Outside historians: None REVIEW OF SYSTEMS Review of Systems Constitutional: Negative for activity change, appetite change, chills and fever. HENT: Negative for congestion, nosebleeds, sinus pain and trouble swallowing. Eyes: Negative for pain and visual disturbance. Respiratory: Negative for cough, chest tightness and shortness of breath. Cardiovascular: Negative for chest pain and palpitations. Gastrointestinal: Positive for abdominal pain. Negative for abdominal distention, blood in stool, diarrhea, nausea and vomiting. Genitourinary: Negative for dysuria, hematuria, pelvic pain, vaginal bleeding, vaginal discharge and vaginal pain. Musculoskeletal: Negative for arthralgias, back pain and myalgias. Skin: Negative for rash and wound. Neurological: Negative for syncope, weakness, light-headedness and headaches. Hematological: Negative for adenopathy. Psychiatric/Behavioral: Negative for agitation and confusion. All other systems reviewed and are negative. Pertinent positives and negatives as per HPI. 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 DICYCLOMINE (BENTYL) 20 MG TABLET HYOSCYAMINE (LEVSIN) 0.125 MG SL TABLET DISSOLVE 1 TABLET UNDER THE TONGUE EVERY 4 HOURS NEEDED. MUPIROCIN (BACTROBAN) 2 % OINTMENT every 12 hours. ONDANSETRON ODT (ZOFRAN-ODT) 8 MG DISINTEGRATING TABLET PROMETHAZINE (PHENERGAN) 12.5 MG TABLET Take 12.5 mg by mouth every 6 hours as needed. VENLAFAXINE XR (EFFEXOR XR) 150 MG 24 HR CAPSULE ALLERGIES Aspirin, Ibuprofen, Nsaids, Hydrocodone-acetaminophen, and Dicyclomine FAMILY HISTORY Family History Problem Relation Name Age of Onset High Blood Pressure Mother Multiple sclerosis Mother Cancer Paternal Grandmother SOCIAL HISTORY Social History Socioeconomic History Marital status: Tobacco Use Smoking status: Former Packs/day: .5 Types: Cigarettes Quit date: 2019 Years since quittin.1 Smokeless tobacco: Never Vaping Use Vaping Use: Never used Substance and Sexual Activity Alcohol use: No Drug use: No SCREENINGS PHYSICAL EXAM ED Triage Vitals [06/24/238] Temp Heart Rate Resp BP 36.9 ?C (98.5 ?F) 110 18 125/84 SpO2 Temp Source Heart Rate Source Patient Position 100 % Temporal Monitor -- BP Location FiO2 (%) -- -- Physical Exam Vitals and nursing note reviewed. Constitutional: General: She is not in acute distress. Appearance: Normal appearance. She is normal weight. She is not ill-appearing or toxic-appearing. HENT: Head: Normocephalic and atraumatic. Right Ear: External ear normal. Left Ear: External ear normal. Mouth/Throat: Mouth: Mucous membranes are moist. Pharynx: Oropharynx is clear. Eyes: Extraocular Movements: Extraocular movements intact. Conjunctiva/sclera: Conjunctivae normal. Pupils: Pupils are equal, round, and reactive to light. Cardiovascular: Comments: Regular rate and rhythm, normal S1-S2, no murmurs noted. Radial pulses 2+ and symmetric. Pulmonary: Effort: Pulmonary effort is normal. No respiratory distress. Breath sounds: Normal breath sounds. No stridor. No wheezing or rhonchi. Abdominal: Comments: Abdomen is soft and nondistended there is tenderness in the right upper quadrant without guarding or rebound tenderness, bowel sounds are normal. M (more content not included)... Normal [facility] HCG QUANTITATIVE BLOODon HCG QUANTITATIVE <2 Normal Females <=5 [facility] Comment on above: Result Comment: ORDE R COMMENTS: Values in should double every 2 to 3 days for the first 6 weeks. Elevated concentrations of human chorionic gonadotropin (hCG) measured in the first trimester of are observed in normal , but may serve as an indication of chorionic carcinoma, hydatiform mole, or multiple . Decreasing hCG concentrations indicate threatened or missed , recent termination of , ectopic , gestosis or intrauterine . Tyra- and postmenopausal females may have detectable hCG concentrations (< or = to 14 mIU/mL) due to pituitary production of hCG. Serum follicle-stimulating hormone measurement may aid in ruling-out in this population. Cutoffs of greater than 20 to 45 mIU/mL have been suggested and are method dependent. False-elevations (called phantom human chorionic gonadotropin: hCG) may occur with patients who have human antianimal or heterophilic antibodies. Some specimens may not dilute linearly due to abnormal forms of hCG. Elevated hCG concentrations not associated with are found in patients with other diseases such as tumors of the germ cells, ovaries, bladder, pancreas, stomach, lungs, and liver. This test is not intended to detect or monitor tumors or gestational trophoblastic disease. Performed By: #### L AB143, LAB17, [id number], LAB99 ####Machine Oiler: RADHA CLAIRE ([id number])[facility] ([facility])[address] [place] [address] LACTIC ACID WITH REFLEXon Lactate [Moles/Vol] 1.5 mmol/L Normal 0.7-2.0 [facility] Comment on above: Performed By: #### L [id number] ####Machine Oiler: RADHA CLAIRE ([id number])[facility] ([facility])[address] LIPASEon 06-24-2023 Lipase [Catalytic activity/Vol] 405 U/L High 23-300 [facility] Comment on above: Performed By: #### L AB143, LAB17, [id number], LAB99 ####Machine Oiler: RADHA CLAIRE ([id number])[facility] ([facility])[address] Laboratory - Chemistry and C hemistry - challengeon 06-24-2023 HCG.beta subunit Qn Females <=5 mIU/mL [facility] Lipase [Catalytic activity/Vol] 405 U/L High 23 - 300 U/L [facility] Magnesium [Mass/Vol] 1.9 mg/dL 1.6 - 2 .3 mg/dL [facility] Lactate [Moles/Vol] 1.5 mmol/L 0.7 - 2. 0 mmol/L [facility] MAGNESIUMon 06-24-2023 Magnesium [Mass/Vol] 1.9 mg/dL Normal 1.6-2.3 [facility] Comment on above: Performed By: #### L AB143, LAB17, [id number], LAB99 ####Machine Oiler: RADHA CLAIRE ([id number])[facility] ([facility])[address] [place] [address] Magnesium [Mass/Vol]on Interpretation and review of laboratory results Normal [facility] No Panel Informationon Values in should double every 2 to 3 days for the first 6 weeks. Elevated concentrations of human chorionic gonadotropin (hCG) measured in the first trimester of are observed in normal , but may serve as an indication of chorionic carcinoma, hydatiform mole, or multiple . Decreasing hCG concentrations indicate threatened or missed , recent termination of , ectopic , gestosis or intrauterine . Tyra- and postmenopausal females may have detectable hCG concentrations (< or = to 14 mIU/mL) due to pituitary production of hCG. Serum follicle-stimulating hormone measurement may aid in ruling-out in this population. Cutoffs of greater than 20 to 45 mIU/mL have been suggested and are method dependent. False-elevations (called phantom human chorionic gonadotropin: hCG) may occur with patients who have human antianimal or heterophilic antibodies. Some specimens may not dilute linearly due to abnormal forms of hCG. Elevated hCG concentrations not associated with are found in patients with other diseases such as tumors of the germ cells, ovaries, bladder, pancreas, stomach, lungs, and liver. This test is not intended to detect or monitor tumors or gestational trophoblastic disease. [facility] Interpretation and review of laboratory results Abnormal [facility] Interpretation and review of laboratory results Normal [facility] US ABDOMEN LIMITEDon 024 US ABDOMEN LIMITED Patient Name: JERRICA CEE : 1995 Exam Date/Time: 06/24/2023 22:55 Procedure: US ABDOMEN LIMITED Ordering Provider: FONSECA DANIEL Reason For Exam: RUQ pain ULTRASOUND OF THE RIGHT UPPER QUADRANT CLINICAL INDICATION: RUQ pain TECHNIQUE: Real-time ultrasound of the right upper quadrant of the abdomen. COMPARISON: None FINDINGS: Mid and distal abdominal aorta are normal caliber. IVC appears patent. Proximal aorta not seen. Pancreas is obscured by bowel gas. Normal liver, gallbladder, and biliary tree. Common bile duct is normal at 3 mm. Normal right kidney measuring 9.2 x 4.8 x 4.3 cm. Negative Nava sign. IMPRESSION: 1. No abnormality seen. Report Dictated on Electronically Signed By: Jeff James MD Electronically Signed Date/Time: 06/24/2023 11:03 PM EST Normal [facility] US Abdomen limitedon 024 1. No abnormality seen. Report Dictated on Electronically Signed By: Jeff James MD Electronically Signed Date/Time: 06/24/2023 11:03 PM EST [facility] EMERGENCY DEPARTMENT RADIOLOGY SYSTEM Patient Name: JERRICA CEE : 1995 Exam Date/Time: 06/24/2023 22:55 Procedure: US ABDOMEN LIMITED Ordering Provider: FONSECA DANIEL Reason For Exam: RUQ pain ULTRASOUND OF THE RIGHT UPPER QUADRANT CLINICAL INDICATION: RUQ pain TECHNIQUE: Real-time ultrasound of the right upper quadrant of the abdomen. COMPARISON: None FINDINGS: Mid and distal abdominal aorta are normal caliber. IVC appears patent. Proximal aorta not seen. Pancreas is obscured by bowel gas. Normal liver, gallbladder, and biliary tree. Common bile duct is normal at 3 mm. Normal right kidney measuring 9.2 x 4.8 x 4.3 cm. Negative Nava sign. [facility] Jeff James MD - 06/24/2023 [facility] 1995 [id number] Exam Date/Time: 06/24/2023 22:55 Procedure: US ABDOMEN LIMITED Ordering Provider: FONSECA DANIEL Reason For Exam: RUQ pain ULTRASOUND OF THE RIGHT UPPER QUADRANT CLINICAL INDICATION: RUQ pain TECHNIQUE: Real-time ultrasound of the right upper quadrant of the abdomen. COMPARISON: None FINDINGS: Mid and distal abdominal aorta are normal caliber. IVC appears patent. Proximal aorta not seen. Pancreas is obscured by bowel gas. Normal liver, gallbladder, and biliary tree. Common bile duct is normal at 3 mm. Normal right kidney measuring 9.2 x 4.8 x 4.3 cm. Negative Nava sign. IMPRESSION: 1. No abnormality seen. Report Dictated on Electronically Signed By: Jeff Jmaes MD Electronically Signed Date/Time: 06/24/2023 11:03 PM EST [facility] Radiology Study observation (narrative) [facility] US Abdomen limitedOrdered By : Jeff James on 06-24-2023 [employer] Work Phone: Urinalysis complete panel (U )on 06-24-2023 Bilirubin Ql (U) Negative Negative mg/dL [facility] Clarity (U) Clear Clear [employer] Color (U) Light Yellow Lt. Yellow [facility] Glucose Ql (U) Normal Normal (<70) mg/dL [facility] Hemoglobin Ql (U) Negative Negative mg/dL [facility] Interpretation and review of laboratory results Normal [facility] Ketones (U) [Mass/Vol] Negative Negative mg/dL [facility] Leukocyte esterase Test strip Ql (U) Negative Negative Jeimy/uL [facility] Nitrite Ql (U) Negative Negative [facility] th pH (U) 7.0 [pH] 5.0 - 8.0 pH [facility] Protein (U) [Mass/Vol] Negative Negative mg/dL [facility] Specific gravity (U) [Rel density] 1.014 1.005 - 1.030 [facility] Urobilinogen (U) [Mass/Vol] Normal Normal (0-1) mg/dL [facility] 36on 06-23-2023 36 Please advise Normal [facility] 36 Name of caller: Ginger griffin Contact phone number: [phone] Relationship to Patient: patient Provider: TREV Fernando [place] [facility] Chief Complaint/Reason for Call: Pt states that she saw on My Chart that from [facility] Jacinto that HIDA scan shows normal biliary function. Pt states that she would like to know if she can speak to someone in the office regarding this. Pt states of the last 30 minutes of the scan she felt severe pain, numbness, tingling, locked joints and that she had slurred speech. Pt states she looked at the results of the scan and would like to discuss the possibility of hyperkinetic gallbladder due to ejection fraction . Please advise. Best time of day caller can be reached: any Patient advised that office/PCP has 24-48 business hours to return their call: No Normal [facility] NM Gallbladder Views W huyen cystokinin and W radionuclide Heather 06-23-2023 Normal biliary funct ion in response to CCK. Report Dictated on Electronically Signed By: Jeff Hart MD Electronically Signed Date/Time: 06/23/2023 2:33 PM [facility] EMERGENCY DEPARTMENT RADIOLOGY SYSTEM Patient Name: JERRICA CEE : 1995 Exam Date/Time: 06/23/2023 11:43 Procedure: NM HEPATOBILIARY SCAN WITH PHARM AGENT W/CCK Ordering Provider: FERNANDO MOIRA Reason For Exam: Biliary colic, recurrent, gallbladder dyskinesia suspected Study: HEPATOBILIARY SCANwith CCK CLINICAL INDICATION: abdominal pain TECHNIQUE: Following the intravenous administration of 3.5 mCi Tc-99m Choletec a hepatobiliary study was performed. Images were then acquired over the abdomen in the anterior projection for approximately one hour. COMPARISON: None FINDINGS: Normal radiopharmaceutical uptake is demonstrated within the liver, with excretion into the biliary tree. Activity is demonstrated within the gallbladder within 60 minutes. Tracer also passes into the small bowel. The gallbladder ejection fraction is 80 percent. The normal range is 35 percent or greater. [facility] Jeff Hart MD - 06/23/2023 Patient Name: [facility]GGS [facility] 1995 [id number] Exam Date/Time: 06/23/2023 11:43 Procedure: NM HEPATOBILIARY SCAN WITH PHARM AGENT W/CCK Ordering Provider: FERNANDO MOIRA Reason For Exam: Biliary colic, recurrent, gallbladder dyskinesia suspected Study: HEPATOBILIARY SCANwith CCK CLINICAL INDICATION: abdominal pain TECHNIQUE: Following the intravenous administration of 3.5 mCi Tc-99m Choletec a hepatobiliary study was performed. Images were then acquired over the abdomen in the anterior projection for approximately one hour. COMPARISON: None FINDINGS: Normal radiopharmaceutical uptake is demonstrated within the liver, with excretion into the biliary tree. Activity is demonstrated within the gallbladder within 60 minutes. Tracer also passes into the small bowel. The gallbladder ejection fraction is 80 percent. The normal range is 35 percent or greater. IMPRESSION: Normal biliary function in response to CCK. Report Dictated on Electronically Signed By: Jeff Hart MD Electronically Signed Date/Time: 06/23/2023 2:33 PM EST [facility] Radiology Study observation (narrative) [facility] NM Gallbladder Views W huyen cystokinin and W radionuclide IVOrdered By: Jeff Hart on 06-23-2023 [employer] Work Phone: Progress Noteon 06-23-2023 Progress Note HIDA scan shows norm al biliary function in response to CCK. Normal [facility] Absolute lymphocyte countOrd ered By: Branden Huang on 06-16-2023 Lymphocytes Auto (Unsp spec) [#/Vol] 1.66 10*3/uL 0.83-4.51 [facility] Automated lymphocyte count a s percentage of total leukocytesOrdered By: Branden Huang on 06-16-2023 Lymphocytes/100 WBC Auto (Unsp spec) 16.4 % 19-41 [facility] Basophil percentageOrdered B y: Branden Huang on 06-16-2023 Basophils/100 WBC (Bld) 0.6 % 0-1 [facility] Bilirubin [Mass/Vol] 0.50 mg/dL 0.20-1.00 [facility] Comment on above: For patients on eltr ombopag therapy, use of Dimension [place] TBIL is not recommended. Chloride [Moles/Vol] 108 mmol/L 98-107 [facility] Eosinophils/100 WBC (Bld) 2.8 % 0-5 [facility] Glucose [Mass/Vol] 86 mg/dL 74-106 [facility] Hemoglobin (Bld) [Mass/Vol] 15.2 g/dL 12.0-15.0 [facility] Monocytes/100 WBC (Bld) 5.7 % 0-10 [facility] Neutrophils (Bld) [#/Vol] 7.5 10*3/uL 2.0-7.7 [facility] Neutrophils/100 WBC (Bld) 74.1 % 47-70 [facility] Potassium [Moles/Vol] 3.6 mmol/L 3.5-5.1 [facility] Protein [Mass/Vol] 7.6 g/dL 6.4-8.2 [facility] Sodium [Moles/Vol] 139 mmol/L 136-145 [facility] WBC (Bld) [#/Vol] 10.2 10*3/uL 4.4-11.0 [facility] Determination of erythrocyte mean corpuscular volume (MCV)Ordered By: Branden Huang on 06-16-2023 MCV (RBC) [Entitic vol] 89.4 fL 81-99 [facility] Erythrocyte distribution wid th ratioOrdered By: Branden Huang on 06-16-2023 Erythrocyte distribution width (RBC) [Ratio] 11.9 % 11.6-14.6 [facility] Erythrocyte distribution wid th standard deviationOrdered By: Branden Huang on 06-16-2023 Erythrocyte distribution width (RBC) [Entitic vol] 38.6 fL 35.1-43.9 [facility] Hematocrit Auto (Bld) [Volum e fraction]Ordered By: Branden Huang on 06-16-2023 Hematocrit (Bld) [Volume fraction] 44.7 % 37-47 [facility] Immature granulocytes/100 WB C Auto (Bld)Ordered By: Branden Huang on 06-16-2023 Immature granulocytes/100 WBC (Bld) 0.400 % 0.0-0.9 [facility] Comment on above: IG% - Immature Granu locytes (promyelocytes, myelocytes and metamyelocytes) > 1% indicates that a LEFT SHIFT is Present. Laboratory - Chemistry and C hemistry - challengeOrdered By: Branden Huang on 06-16-2023 Albumin/Globulin [Mass ratio] 1.0 {ratio} 0.9-2.4 [facility] ALP [Catalytic activity/Vol] 68 U/L 45-117 [facility] ALT [Catalytic activity/Vol] 21 U/L 13-56 [facility] CO2 [Moles/Vol] 29.0 mmol/L 21.0-32.0 [facility] Globulin (S) [Mass/Vol] 3.8 g/dL 2.2-4.2 [facility] Lipase [Catalytic activity/Vol] 26 U/L 13-75 [facility] Comment on above: Please note:LIPASE r evised reference range effective 22. New Lipase methodology. Expected to produce lower values than the previous assay method. NEW Reference Range: 13 - 75 U/L Urea nitrogen/Creatinine [Mass ratio] 13.8 mg/mg 10-20 [facility] Laboratory - Hematology and Cell countsOrdered By: Branden Huang on 06-16-2023 MCH (RBC) [Entitic mass] 30.4 pg 27.0-32.0 [facility] MCHC (RBC) [Mass/Vol] 34.0 g/dL 32-36 [facility] Nucleated RBC/100 WBC (Bld) [Ratio] 0 % 0-5 [facility] Platelet mean volume (Bld) [Entitic vol] 10.9 fL 6.2-12.0 [facility] Platelets (Bld) [#/Vol] 260 10*3/uL 150-450 [facility] No Panel InformationOrdered By: Branden Huang on 06-16-2023 Estimated Creatinine Clearance Calc 114.49 ml/min [facility] Estimated GFR (MDRD) Amer 140 mL/min >60 [facility] Comment on above: GFR Calc Estimated GFR (MDRD) Non-Af Amer 116 mL/min >60 [facility] Comment on above: Non- GFR Calc RBC Auto (Bld) [#/Vol]Ordere d By: Branden Huang on 06-16-2023 RBC (Bld) [#/Vol] 5.00 10*6/uL 4.2-5.4 [facility] Serum or plasma calcium eran urement (mass/volume)Ordered By: Branden Huang on 06-16-2023 Calcium [Mass/Vol] 8.9 mg/dL 8.5-10.1 [facility] Serum or plasma creatinine m easurement (mass/volume)Ordered By: Branden Huang on 06-16-2023 Creatinine [Mass/Vol] 0.65 mg/dL 0.55-1.02 [facility] Comment on above: The validity of the calculated GFR & GFRAA in patients over 70 years has not been determined. Clinical correlation is essential. Serum or plasma urea nitroge n measurement (mass/volume)Ordered By: Branden Huang on 06-16-2023 Urea nitrogen [Mass/Vol] 9 mg/dL 7-18 [facility] Thin prep Papanicolaou smear with manual screeningOrdered By: Branden Huang on 06-16-2023 Thin prep Papanicolaou smear with manual screening 3.8 g/dL 3.2-5.0 [facility] Thin prep Papanicolaou smear with manual screening 18 U/L 15-37 [facility] Thin prep Papanicolaou smear with manual screening 2 5-15 [facility] NM Stomach Views for gastric emptying solid phase W radionuclide Justino 06-08-2023 Normal gastric emptying with solid meal. Report Dictated on Electronically Signed By: Jose Hurst MD Electronically Signed Date/Time: 06/08/2023 12:38 PM [facility] [employer] SYSTEM Patient Name: JERRICA CEE : 1995 Exam Date/Time: 06/08/2023 12:21 Procedure: NM GASTRIC EMPTYING SOLID Ordering Provider: FERNANDO MOIRA Reason For Exam: Gastroparesis suspected SOLID PHASE GASTRIC EMPTYING STUDY CLINICAL INDICATION: Gastroparesis suspected The patient was given a standard meal of 1.1 millicurie of technetium-99m sulfur colloid prepared with egg. Anterior and posterior images over the abdomen were obtained up to four hours after ingestion. ALANA activity curves over the stomach were then calculated. COMPARISON: None FINDINGS: At one hour, there is 71 percent of original activity within the stomach (normal between 30-90% retention). At two hours after ingestion, 33 percent of original activity remains within the stomach (normal 60% or less). At four hours after ingestion, 3 percent of original activity remains within the stomach (normal 10 percent or less). [facility] Jose Hurst MD - 06/08/2023 Patient Name: JERRICA SUGGS : 1995 Exam Date/Time: 06/08/2023 12:21 Procedure: NM GASTRIC EMPTYING SOLID Ordering Provider: FERNANDO MOIRA Reason For Exam: Gastroparesis suspected SOLID PHASE GASTRIC EMPTYING STUDY CLINICAL INDICATION: Gastroparesis suspected The patient was given a standard meal of 1.1 millicurie of technetium-99m sulfur colloid prepared with egg. Anterior and posterior images over the abdomen were obtained up to four hours after ingestion. ALANA activity curves over the stomach were then calculated. COMPARISON: None FINDINGS: At one hour, there is 71 percent of original activity within the stomach (normal between 30-90% retention). At two hours after ingestion, 33 percent of original activity remains within the stomach (normal 60% or less). At four hours after ingestion, 3 percent of original activity remains within the stomach (normal 10 percent or less). IMPRESSION: Normal gastric emptying with solid meal. Report Dictated on Electronically Signed By: Jose Hurst MD Electronically Signed Date/Time: 06/08/2023 12:38 PM EST [facility] Radiology Study observation (narrative) [facility] NM Stomach Views for gastric emptying solid phase W radionuclide POOrdered By: Jose Hrust on 06-08-2023 [facility] Absolute lymphocyte countOrd ered By: Ventura Bah on 03-14-2023 Lymphocytes Auto (Unsp spec) [#/Vol] 2.13 10*3/uL 0.83-4.51 [facility] Basophil percentageOrdered B y: Ventura Bah on 03-14-2023 Basophil percentage 0 SEEN /hpf 0-5 [facility] Basophils/100 WBC (Bld) 0.4 % 0-1 [facility] Bilirubin [Mass/Vol] 0.70 mg/dL 0.20-1.00 [facility] Comment on above: For patients on eltr ombopag therapy, use of Dimension [place] TBIL is not recommended. Chloride [Moles/Vol] 103 mmol/L 98-107 [facility] Eosinophils/100 WBC (Bld) 2.0 % 0-5 [facility] Glucose [Mass/Vol] 93 mg/dL 74-106 [facility] Neutrophils (Bld) [#/Vol] 5.3 10*3/uL 2.0-7.7 [facility] Neutrophils/100 WBC (Bld) 64.3 % 47-70 [facility] Potassium [Moles/Vol] 3.2 mmol/L 3.5-5.1 [facility] Protein [Mass/Vol] 8.6 g/dL 6.4-8.2 [facility] Sodium [Moles/Vol] 139 mmol/L 136-145 [facility] WBC (Bld) [#/Vol] 8.2 10*3/uL 4.4-11.0 [facility] Beta hCG serum qualOrdered B y: Ventura Bah on 03-14-2023 Beta HCG ( test) Ql Negative [facility] Bilirubin Test strip Ql (U)O rdered By: Ventura Bah on 03-14-2023 Bilirubin Ql (U) Negative Negative [facility] Blood erythrocytes count (nu mber/volume)Ordered By: Ventura Bah on 03-14-2023 RBC (Bld) [#/Vol] 5.29 10*6/uL 4.2-5.4 [facility] Blood hemoglobin measurement (mass/volume)Ordered By: Ventura Bah on 03-14-2023 Hemoglobin (Bld) [Mass/Vol] 15.8 g/dL 12.0-15.0 [facility] Blood lymphocytes/100 leukoc ytesOrdered By: Ventura Bah on 03-14-2023 Lymphocytes/100 WBC (Bld) 26.0 % 19-41 [facility] Blood monocytes/100 leukocyt esOrdered By: Ventura Bah on 03-14-2023 Monocytes/100 WBC (Bld) 7.1 % 0-10 [facility] Blood platelet mean volumeOr dered By: Ventura Bah on 03-14-2023 Platelet mean volume (Bld) [Entitic vol] 11.0 fL 6.2-12.0 [facility] Determination of erythrocyte mean corpuscular volume (MCV)Ordered By: Ventura Bah on 03-14-2023 MCV (RBC) [Entitic vol] 86.0 fL 81-99 [facility] Direct bilirubinOrdered By: Ventura Bah on 03-14-2023 Bilirubin.direct [Mass/Vol] 0.19 mg/dL 0.00-0.30 [facility] Hematocrit Auto (Bld) [Volum e fraction]Ordered By: Ventura Bah on 03-14-2023 Hematocrit (Bld) [Volume fraction] 45.5 % 37-47 [facility] Ketones Test strip Ql (U)Ord ered By: Ventura Bah on 03-14-2023 Ketones Ql (U) 15 mg/dl Negative [facility] Laboratory - Chemistry and C hemistry - challengeOrdered By: Ventura Bah on 03-14-2023 ALP [Catalytic activity/Vol] 66 U/L 45-117 [facility] ALT [Catalytic activity/Vol] 16 U/L 13-56 [facility] CO2 [Moles/Vol] 29.0 mmol/L 21.0-32.0 [facility] Globulin (S) [Mass/Vol] 4.2 g/dL 2.2-4.2 [facility] Lipase [Catalytic activity/Vol] 57 U/L 13-75 [facility] Comment on above: Please note:LIPASE r evised reference range effective 22. New Lipase methodology. Expected to produce lower values than the previous assay method. NEW Reference Range: 13 - 75 U/L Urea nitrogen/Creatinine [Mass ratio] 8.8 mg/mg 10-20 [facility] - Hematology and Cell countsOrdered By: Ventura Bah on 03-14-2023 Erythrocyte distribution width (RBC) [Entitic vol] 37.0 fL 35.1-43.9 [facility] Erythrocyte distribution width (RBC) [Ratio] 11.8 % 11.6-14.6 [facility] Immature granulocytes/100 WBC (Bld) 0.200 % 0.0-0.9 [facility] Comment on above: IG% - Immature Granu locytes (promyelocytes, myelocytes and metamyelocytes) > 1% indicates that a LEFT SHIFT is Present. MCH (RBC) [Entitic mass] 29.9 pg 27.0-32.0 [facility] Nucleated RBC/100 WBC (Bld) [Ratio] 0 % 0-5 [facility] MCHC Auto (RBC) [Mass/Vol]Or dered By: Ventura Bah on 03-14-2023 MCHC (RBC) [Mass/Vol] 34.7 g/dL 32-36 [facility] Mucus LM Ql (Urine sed)Order ed By: Ventura Bah on 03-14-2023 Mucus Ql (Urine sed) 0 SEEN /hpf [facility] Nitrite Test strip Ql (U)Ord ered By: Ventura Bah on 03-14-2023 Nitrite Ql (U) Negative Negative [facility] No Panel InformationOrdered By: Ventura Bah on 03-14-2023 Estimated Creatinine Clearance Calc 76.82 ml/min [facility] Estimated GFR (MDRD) Amer 95 mL/min >60 [facility] Comment on above: GFR Calc Estimated GFR (MDRD) Non-Af Amer 79 mL/min >60 [facility] Comment on above: Non- GFR Calc Platelets bldOrdered By: Vernon Bah on 03-14-2023 Platelets (Bld) [#/Vol] 277 10*3/uL 150-450 [facility] Protein Test strip Ql (U)Ord ered By: Ventura Bah on 03-14-2023 Protein Ql (U) Negative Negative [facility] Serum or plasma albumin eran urement (mass/volume)Ordered By: Ventura Bah on 03-14-2023 Albumin [Mass/Vol] 4.4 g/dL 3.2-5.0 [facility] Serum or plasma calcium eran urement (mass/volume)Ordered By: Ventura Bah on 03-14-2023 Calcium [Mass/Vol] 9.6 mg/dL 8.5-10.1 [facility] Serum or plasma creatinine m easurement (mass/volume)Ordered By: Ventura Bah on 03-14-2023 Creatinine [Mass/Vol] 0.91 mg/dL 0.55-1.02 [facility] Comment on above: The validity of the calculated GFR & GFRAA in patients over 70 years has not been determined. Clinical correlation is essential. Serum or plasma urea nitroge n measurement (mass/volume)Ordered By: Ventura Bah on 03-14-2023 Urea nitrogen [Mass/Vol] 8 mg/dL 7-18 [facility] Squamous epithelial cells de tection in urine sediment by light microscopyOrdered By: Ventura Bah on 03-14-2023 Epithelial cells.squamous LM Ql (Urine sed) 0-5 SEEN /hpf 5-10 [facility] Thin prep Papanicolaou smear with manual screeningOrdered By: Ventura Bah on 03-14-2023 Thin prep Papanicolaou smear with manual screening 13 U/L 15-37 [facility] Thin prep Papanicolaou smear with manual screening 7 5-15 [facility] Urine blood detectionOrdered By: Ventura Bah on 03-14-2023 RBC Ql (U) Negative Negative [facility] RBC Ql (U) 0 SEEN /hpf 0-5 [facility] Urine clarityOrdered By: Vernon Bah on 03-14-2023 Clarity (U) Clear Clear [facility] Urine color determinationOrd ered By: Ventura Bah on 03-14-2023 Color (U) Yellow Yellow [facility] Urine glucose detectionOrder ed By: Ventura Bah on 03-14-2023 Glucose Ql (U) Normal mg/dl Normal [facility] Urine leukocyte esterase det ection by dipstickOrdered By: Ventura Bah on 11-19-2023 Leukocyte esterase Test strip Ql (U) Negative Negative [facility] Urine pHOrdered By: Ventura solitario on 03-14-2023 pH (U) 8.0 [pH] 5.0 - 8.0 [facility] Urine sediment bacteria coun t by microscopy (number/high power field)Ordered By: Ventura Bah on 03-14-2023 Bacteria LM.HPF (Urine sed) [#/Area] 0 /[HPF] None Seen [facility] Urine specific gravity measu rementOrdered By: Ventura Bah on 03-14-2023 Specific gravity (U) [Rel density] 1.010 1.002-1.[address] [facility] Urobilinogen Auto test strip Ql (U)Ordered By: Ventura Bah on 03-14-2023 Urobilinogen Ql (U) Normal mg/dl Normal [facility] MR Brain WO and W contrast I Von 12-07-2022 Normal MRI examinati on of the brain. Report Dictated on Electronically Signed By: Surya Mathis MD Electronically Signed Date/Time: 12/07/2022 2:25 PM EDT [facility] EMERGENCY DEPARTMENT [employer] SYSTEM [facility] 1995 [id number] Exam Date/Time: 12/07/2022 11:38 Procedure: MR BRAIN W AND WO CONTRAST Ordering Provider: CORTEZ RACHEL Reason For Exam: r20.0 r20.2 MRI BRAIN WITHOUT AND WITH CONTRAST: CLINICAL INDICATION: Headaches, paresthesias TECHNIQUE: Multiplanar multi sequential MRI images of the brain were obtained pre and post intravenous administration of 10.6ml gadolinium based contrast. COMPARISON: None. FINDINGS: Ventricular system and Extra-axial spaces: Normal in size and morphology for the patient's age. No extracerebral collection with mass effect. Cerebral and cerebellar parenchyma: Normal. No focus of restricted diffusion. Brainstem: Normal. Sella turcica and pituitary: Normal. Vascular system: Normal signal void is noted within the major intracranial vessels. Paranasal sinuses: Mucosal polyp versus retention cyst noted in the inferior posterior right maxillary sinus.. Mastoid air cells: Normal. Orbits: Normal. [facility] EMERGENCY DEPARTMENT [employer] SYSTEM Surya Mathis MD - 12/07/2022 Patient Name: [facility]ERRICA SUGGS [facility] 1995 [id number] Exam Date/Time: 12/07/2022 11:38 Procedure: MR BRAIN W AND WO CONTRAST Ordering Provider: CORTEZ RACHEL Reason For Exam: r20.0 r20.2 MRI BRAIN WITHOUT AND WITH CONTRAST: CLINICAL INDICATION: Headaches, paresthesias TECHNIQUE: Multiplanar multi sequential MRI images of the brain were obtained pre and post intravenous administration of 10.6ml gadolinium based contrast. COMPARISON: None. FINDINGS: Ventricular system and Extra-axial spaces: Normal in size and morphology for the patient's age. No extracerebral collection with mass effect. Cerebral and cerebellar parenchyma: Normal. No focus of restricted diffusion. Brainstem: Normal. Sella turcica and pituitary: Normal. Vascular system: Normal signal void is noted within the major intracranial vessels. Paranasal sinuses: Mucosal polyp versus retention cyst noted in the inferior posterior right maxillary sinus.. Mastoid air cells: Normal. Orbits: Normal. IMPRESSION: Normal MRI examination of the brain. Report Dictated on Electronically Signed By: Surya Mathis MD Electronically Signed Date/Time: 12/07/2022 2:25 PM EDT [facility] Radiology Study observation (narrative) [facility] MR Brain WO and W contrast I VOrdered By: Surya Mathis on 12-07-2022 [facility] Work Phone: CBC W Auto Differential pane l (Bld)on 09-23-2022 Basophils (Bld) [#/Vol] <0.11 k/uL [facility] Basophils/100 WBC (Bld) 0.3 % [facility] Differential cell count method Nom (Bld) Auto [facility] Eosinophils (Bld) [#/Vol] 0.27 10*3/uL <0.46 k/uL [facility] Eosinophils/100 WBC (Bld) 3.4 % [facility] Erythrocyte distribution width (RBC) [Ratio] 11.7 % 11.5 - 15.0 % [facility] Hematocrit (Bld) [Volume fraction] 43.3 % 36.0 - 46.0 % [facility] Hemoglobin (Bld) [Mass/Vol] 15.3 g/dL 11.5 - 15.5 g/dL [facility] Immature granulocytes (Bld) [#/Vol] <0.10 k/uL [facility] Immature granulocytes/100 WBC (Bld) 0.3 % [facility] Lymphocytes (Bld) [#/Vol] 2.06 10*3/uL 1.00 - 4.00 k/uL [facility] Lymphocytes/100 WBC (Bld) 26.1 % [facility] MCH (RBC) [Entitic mass] 30.9 pg 26.0 - 34.0 pg [facility] MCHC (RBC) [Mass/Vol] 35.3 g/dL 30.5 - 36.0 g/dL [facility] MCV (RBC) [Entitic vol] 87.5 fL 80.0 - 100.0 fL [facility] Monocytes (Bld) [#/Vol] 0.61 10*3/uL <0.87 k/uL [facility] Monocytes/100 WBC (Bld) 7.7 % [facility] Neutrophils (Bld) [#/Vol] 4.92 10*3/uL 1.45 - 7.50 k/uL [facility] Neutrophils/100 WBC (Bld) 62.2 % [facility] Nucleated RBC (Bld) [#/Vol] <0.01 k/uL [facility] Nucleated RBC/100 WBC (Bld) [Ratio] 0.0 /100 WBC [facility] Platelet mean volume (Bld) [Entitic vol] 10.7 fL 9.0 - 12.7 fL [facility] Platelets (Bld) [#/Vol] 228 10*3/uL 150 - 400 k/uL [facility] RBC (Bld) [#/Vol] 4.95 10*6/uL 3.90 - 5.20 m/uL [facility] WBC (Bld) [#/Vol] 7.90 10*3/uL 3.70 - 11.00 k/uL [facility] Comprehensive metabolic 2000 panelon 09-23-2022 Albumin [Mass/Vol] 4.8 g/dL 3.9 - 4.9 g/dL [facility] ALP [Catalytic activity/Vol] 59 U/L 34 - 123 U/L [facility] ALT With P-5'-P [Catalytic activity/Vol] 16 U/L 7 - 38 U/L [facility] Anion gap [Moles/Vol] 13 mmol/L 9 - 18 mmol/L [facility] AST With P-5'-P [Catalytic activity/Vol] 20 U/L 13 - 35 U/L [facility] Bilirubin [Mass/Vol] 0.7 mg/dL 0.2 - 1 .3 mg/dL [facility] Calcium [Mass/Vol] 9.6 mg/dL 8.5 - 10. 2 mg/dL [facility] Chloride [Moles/Vol] 100 mmol/L 97 - 10 5 mmol/L [facility] CO2 [Moles/Vol] 25 mmol/L 22 - 30 mmol/L [facility] Creatinine [Mass/Vol] 0.78 mg/dL 0.58 - 0.96 mg/dL [facility] Estimated Glomerular Filtration Rate 108 mL/min/1.73m >=60 mL/min/1.7 3m [facility] Glucose [Mass/Vol] 104 mg/dL High 74 - 99 mg/dL [facility] Potassium [Moles/Vol] 3.3 mmol/L Low 3.7 - 5.1 mmol/L [facility] Protein [Mass/Vol] 7.9 g/dL 6.3 - 8.0 g/dL [facility] Sodium [Moles/Vol] 138 mmol/L 136 - 144 mmol/L [facility] Urea nitrogen [Mass/Vol] 7 mg/dL 7 - 21 mg/dL [facility] PLATELET FUNCTION SCon 09-23 Platelet function (closure time) collagen+ADP induced (Bld) [Time] 100 CT (seconds) <118 CT (seconds) [facility] Platelet function (closure time) collagen+EPINEPHrine induced (Bld) [Time] 122 CT (seconds) <194 CT (seconds) [facility] HCG ( test) Ql (U)o n 09-22-2022 Specific gravity (U) [Rel density] 1.025 1.005 - 1.030 [facility] HCG QUAL URon 09-22-2022 HCG ( test) Ql (U) Negative Negative [facility] ACTIVATED PTTon 08-28-2022 aPTT Coag (PPP) [Time] 36.1 s High 23.0 - 32.4 sec [facility] CBC W Auto Differential pane l (Bld)on 08-28-2022 Basophils (Bld) [#/Vol] 0.05 10*3/uL <0.11 k/uL [facility] Basophils/100 WBC (Bld) 0.6 % [facility] Differential cell count method Nom (Bld) Auto [facility] Eosinophils (Bld) [#/Vol] 0.52 10*3/uL High <0.46 k/uL [facility] Eosinophils/100 WBC (Bld) 5.8 % [facility] Erythrocyte distribution width (RBC) [Ratio] 11.8 % 11.5 - 15.0 % [facility] Hematocrit (Bld) [Volume fraction] 44.6 % 36.0 - 46.0 % [facility] Hemoglobin (Bld) [Mass/Vol] 15.5 g/dL 11.5 - 15.5 g/dL [facility] Immature granulocytes (Bld) [#/Vol] <0.10 k/uL [facility] Immature granulocytes/100 WBC (Bld) 0.2 % [facility] Lymphocytes (Bld) [#/Vol] 2.67 10*3/uL 1.00 - 4.00 k/uL [facility] Lymphocytes/100 WBC (Bld) 29.7 % [facility] MCH (RBC) [Entitic mass] 30.9 pg 26.0 - 34.0 pg [facility] MCHC (RBC) [Mass/Vol] 34.8 g/dL 30.5 - 36.0 g/dL [facility] MCV (RBC) [Entitic vol] 88.8 fL 80.0 - 100.0 fL [facility] Monocytes (Bld) [#/Vol] 0.61 10*3/uL <0.87 k/uL [facility] Monocytes/100 WBC (Bld) 6.8 % [facility] Neutrophils (Bld) [#/Vol] 5.12 10*3/uL 1.45 - 7.50 k/uL [facility] Neutrophils/100 WBC (Bld) 56.9 % [facility] Nucleated RBC (Bld) [#/Vol] <0.01 k/uL [facility] Nucleated RBC/100 WBC (Bld) [Ratio] 0.0 /100 WBC [facility] Platelet mean volume (Bld) [Entitic vol] 10.4 fL 9.0 - 12.7 fL [facility] Platelets (Bld) [#/Vol] 233 10*3/uL 150 - 400 k/uL [facility] RBC (Bld) [#/Vol] 5.02 10*6/uL 3.90 - 5.20 m/uL [facility] WBC (Bld) [#/Vol] 8.99 10*3/uL 3.70 - 11.00 k/uL [facility] Comprehensive metabolic 2000 panelon 08-28-2022 Albumin [Mass/Vol] 4.7 g/dL 3.9 - 4.9 g/dL [facility] ALP [Catalytic activity/Vol] 62 U/L 34 - 123 U/L [facility] ALT With P-5'-P [Catalytic activity/Vol] 13 U/L 7 - 38 U/L [facility] Anion gap [Moles/Vol] 10 mmol/L 9 - 18 mmol/L [facility] AST With P-5'-P [Catalytic activity/Vol] 19 U/L 13 - 35 U/L [facility] Bilirubin [Mass/Vol] 0.5 mg/dL 0.2 - 1 .3 mg/dL [facility] Calcium [Mass/Vol] 9.7 mg/dL 8.5 - 10. 2 mg/dL [facility] Chloride [Moles/Vol] 101 mmol/L 97 - 10 5 mmol/L [facility] CO2 [Moles/Vol] 28 mmol/L 22 - 30 mmol/L [facility] Creatinine [Mass/Vol] 0.74 mg/dL 0.58 - 0.96 mg/dL [facility] Estimated Glomerular Filtration Rate 115 mL/min/1.73m >=60 mL/min/1.7 3m [facility] Glucose [Mass/Vol] 93 mg/dL 74 - 99 mg/dL [facility] Potassium [Moles/Vol] 3.8 mmol/L 3.7 - 5.1 mmol/L [facility] Protein [Mass/Vol] 7.6 g/dL 6.3 - 8.0 g/dL [facility] Sodium [Moles/Vol] 139 mmol/L 136 - 144 mmol/L [facility] Urea nitrogen [Mass/Vol] 7 mg/dL 7 - 21 mg/dL [facility] FIBRINOGENon 08-28-2022 Fibrinogen Coag (PPP) [Mass/Vol] 285 mg/dL 200 - 400 mg/dL [facility] PT panel Coag (PPP)on 2022 INR Coag (PPP) [Relative time] 1.0 {INR} 0.9 - 1.3 [facility] PT Coag (PPP) [Time] 10.7 s 9.7 - 1 3.0 sec [facility] CBC W Auto Differential pane l (Bld)on 07-06-2022 Basophils (Bld) [#/Vol] 0.0 10*3/uL 0.0 - 0.2 10*3/uL [facility] Basophils/100 WBC (Bld) 0.4 % 0.0 - 2.0 % [facility] Eosinophils (Bld) [#/Vol] 0.2 10*3/uL 0.0 - 0.5 10*3/uL [facility] Eosinophils/100 WBC (Bld) 2.6 % 1.0 - 6.0 % [facility] Erythrocyte distribution width (RBC) [Ratio] 11.6 % 11.5 - 14.5 % [facility] Hematocrit (Bld) [Volume fraction] 42.7 % 35.0 - 47.0 % [facility] Hemoglobin (Bld) [Mass/Vol] 15.3 g/dL 11.7 - 16.0 g/dL [facility] Immature granulocytes (Bld) [#/Vol] 0.0 10*3/uL NINF - 0.0 10*3/uL [facility] Immature granulocytes/100 WBC (Bld) 0.3 % High NINF - 0.0 % [facility] Interpretation and review of laboratory results Abnormal [facility] Lymphocytes (Bld) [#/Vol] 2.6 10*3/uL 1.0 - 4.3 10*3/uL [facility] Lymphocytes/100 WBC (Bld) 27.8 % 20.0 - 40.0 % [facility] MCH (RBC) [Entitic mass] 30.9 pg 26.0 - 34.0 pg [facility] MCHC (RBC) [Mass/Vol] 35.8 % 32.0 - 36.0 % [facility] MCV (RBC) [Entitic vol] 86.3 fL 80.0 - 98.0 fL [facility] Monocytes (Bld) [#/Vol] 0.6 10*3/uL 0.0 - 0.8 10*3/uL [facility] Monocytes/100 WBC (Bld) 6.8 % 2.0 - 10.0 % [facility] Neutrophils (Bld) [#/Vol] 5.7 10*3/uL 1.8 - 7.0 10*3/uL [facility] Neutrophils/100 WBC (Bld) 62.1 % 40.0 - 80.0 % [facility] Platelet mean volume (Bld) [Entitic vol] 10.4 fL 7.4 - 12.4 fL [facility] Comment on above: MPV is a calculated measurement using platelet volume ratio Platelets (Bld) [#/Vol] 248 10*3/uL 140 - 440 10*3/uL [facility] RBC (Bld) [#/Vol] 4.95 10*6/uL 3.8 - 5.20 10*6/uL [facility] WBC (Bld) [#/Vol] 9.2 10*3/uL 3.6 - 10.7 10*3/uL [facility] CT Abdomen WO contraston 1. No acute intra-ab dominal process. 2. Soft tissue stranding and some specks of gas noted in the right gluteal region. Clinical correlation for a history of injection is recommended. Report Dictated on Electronically Signed By: Mendez Mathis Electronically Signed Date/Time: 07/06/2022 4:38 PM EDT [facility] EMERGENCY DEPARTMENT RADIOLOGY SYSTEM Patient Name: [facility]EE [facility] 1995 [id number] Exam Date/Time: 07/06/2022 16:24 Procedure: CT ABDOMEN PELVIS WO IV CONTRAST Ordering Provider: DAVE GREGORY Reason For Exam: 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, acute, nonlocalized EXAMINATION: CT of the abdomen and pelvis without contrast. EXAM DATE & TIME: 07/06/2022 4:24 PM EDT INDICATION: 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, acute, nonlocalized ADDITIONAL INFORMATION: 27-year-old female with acute abdominal pain presents for evaluation COMPARISON: None LIMITATIONS: Evaluation of the vasculature as well as the solid and hollow viscera is limited due to the lack of intravenous and oral contrast. TECHNIQUE: Contiguous multiplanar 3 mm images were obtained from the levels of the lung bases through the pelvis without contrast. Images were reformatted in coronal and sagittal projections using the raw CT data and were interpreted in conjunction with the axial images to render the findings listed below. Dose reduction was employed with automated exposure control. FINDINGS: Included images of the lower thorax: No focal lung consolidation or pleural effusion. Hepatobiliary: Unremarkable liver without biliary dilation evident. Gallbladder appears normal. Spleen: Unremarkable. Pancreas: Unremarkable. Adrenal glands: Unremarkable. Kidneys, ureters and bladder: No hydronephrosis or nephrolithiasis. The urinary bladder is unremarkable in appearance. Abdominal and pelvic vasculature: Unremarkable. Gastrointestinal: No evidence of obstruction. The appendix is within normal limits. Peritoneum, retroperitoneum and mesentery: No inflammatory change, pneumoperitoneum, free fluid or abnormal mass is shown. Lymph nodes: No abdominal or pelvic lymphadenopathy is evident. Solid pelvic viscera: An IUD is present within the endometrium. Visualized musculoskeletal structures: No acute fracture or destructive osseous lesion is identified. Some soft tissue stranding is present in the right gluteal region. A couple of small specks of gas are noted in this area as well (series 2, image 107). [facility] EMERGENCY DEPARTMENT RADIOLOGY SYSTEM Mendez Mathis MD - 07/06/2022 [facility] 1995 [id number] Exam Date/Time: 07/06/2022 16:24 Procedure: CT ABDOMEN PELVIS WO IV CONTRAST Ordering Provider: DAVE GREGORY Reason For Exam: 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, acute, nonlocalized EXAMINATION: CT of the abdomen and pelvis without contrast. EXAM DATE & TIME: 07/06/2022 4:24 PM EDT INDICATION: 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, acute, nonlocalized ADDITIONAL INFORMATION: 27-year-old female with acute abdominal pain presents for evaluation COMPARISON: None LIMITATIONS: Evaluation of the vasculature as well as the solid and hollow viscera is limited due to the lack of intravenous and oral contrast. TECHNIQUE: Contiguous multiplanar 3 mm images were obtained from the levels of the lung bases through the pelvis without contrast. Images were reformatted in coronal and sagittal projections using the raw CT data and were interpreted in conjunction with the axial images to render the findings listed below. Dose reduction was employed with automated exposure control. FINDINGS: Included images of the lower thorax: No focal lung consolidation or pleural effusion. Hepatobiliary: Unremarkable liver without biliary dilation evident. Gallbladder appears normal. Spleen: Unremarkable. Pancreas: Unremarkable. Adrenal glands: Unremarkable. Kidneys, ureters and bladder: No hydronephrosis or nephrolithiasis. The urinary bladder is unremarkable in appearance. Abdominal and pelvic vasculature: Unremarkable. Gastrointestinal: No evidence of obstruction. The appendix is within normal limits. Peritoneum, retroperitoneum and mesentery: No inflammatory change, pneumoperitoneum, free fluid or abnormal mass is shown. Lymph nodes: No abdominal or pelvic lymphadenopathy is evident. Solid pelvic viscera: An IUD is present within the endometrium. Visualized musculoskeletal structures: No acute fracture or destructive osseous lesion is identified. Some soft tissue stranding is present in the right gluteal region. A couple of small specks of gas are noted in this area as well (series 2, image 107). IMPRESSION: 1. No acute intra-abdominal process. 2. Soft tissue stranding and some specks of gas noted in the right gluteal region. Clinical correlation for a history of injection is recommended. Report Dictated on Electronically Signed By: Mendez Mathis Electronically Signed Date/Time: 07/06/2022 4:38 PM EDT [facility] Radiology Study observation (narrative) [facility] CT Abdomen WO contrastOrdere d By: Mendez Mathis on 07-06-2022 [facility] Work Phone: Comprehensive metabolic 1998 panelon 07-06-2022 Albumin [Mass/Vol] 4.6 g/dL 3.5 - 5.0 g/dL [facility] ALP [Catalytic activity/Vol] 64 U/L 38 - 126 U/L [facility] ALT [Catalytic activity/Vol] 30 U/L 0 - 34 U/L [facility] Anion gap [Moles/Vol] 5 mmol/L 3 - 13 mmol/L [facility] AST [Catalytic activity/Vol] 35 U/L 15 - 46 U/L [facility] Bilirubin [Mass/Vol] 0.6 mg/dL 0.2 - 1 .3 mg/dL [facility] Calcium [Mass/Vol] 9.3 mg/dL 8.4 - 10. 4 mg/dL [facility] Chloride [Moles/Vol] 104 mmol/L 98 - 10 7 mmol/L [facility] CO2 [Moles/Vol] 29 mmol/L 22 - 30 mmol/L [facility] Creatinine [Mass/Vol] 0.70 mg/dL 0.52 - 1.04 mg/dL [facility] GFR/1.73 sq M.predicted MDRD (S/P/Bld) [Vol rate/Area] - PINF [facility] Comment on above: Calculation based on the Chronic Kidney Disease Epidemiology Collaboration (CKD-EPI) equation refit without adjustment for race Glucose [Mass/Vol] 80 mg/dL 70 - 100 mg/dL [facility] Interpretation and review of laboratory results Abnormal [facility] Potassium [Moles/Vol] 3.4 mmol/L Low 3.5 - 5.1 mmol/L [facility] Protein [Mass/Vol] 8.2 g/dL 6.3 - 8.2 g/dL [facility] Sodium [Moles/Vol] 139 mmol/L 135 - 145 mmol/L [facility] Urea nitrogen [Mass/Vol] 11 mg/dL 7 - 17 mg/dL [facility] Laboratory - Chemistry and C hemistry - challengeon 07-06-2022 Lipase [Catalytic activity/Vol] 38 U/L 23 - 300 U/L [facility] Laboratory - Chemistry and C hemistry - challengeOrdered By: Michelle Martell on 07-06-2022 Beta HCG ( test) Ql Negative Negative [facility] Comment on above: Please note: Very di lute urine specimens, as indicated by a low specific gravity, may not contain contact representative levels of hCG. If is still suspected, a first morning urine specimen should be collected 48 hours later and tested. Beta HCG ( test) Ql (U) is the most common reason for HCG in urine, although choriocarcinoma, hydatidiform mole, and certain nontrophoblastic malignancies also result in detectable urinary HCG levels. Sensitivity = 20mIU/mL. [facility] Lipase [Catalytic activity/V ol]on 07-06-2022 Interpretation and review of laboratory results Normal [facility] No Panel Informationon 07-06 [facility] No Panel InformationOrdered By: Michelle Martell on 07-06-2022 [facility] Urinalysis complete panel (U )on 07-06-2022 Bacteria LM.HPF (Urine sed) [#/Area] Negative Negative /HPF [facility] Bilirubin Ql (U) Negative Negative mg/dL [facility] Clarity (U) Clear Clear [facility] Color (U) Yellow Lt. Yellow [facility] Epithelial cells.squamous LM.HPF (Urine sed) [#/Area] 0-2 [facility] Glucose Ql (U) Normal Normal (<70) mg/dL [facility] Hemoglobin Ql (U) Negative Negative mg/dL [facility] Interpretation and review of laboratory results Abnormal [facility] Ketones (U) [Mass/Vol] mg/dL Abnormal Negative mg/dL [facility] Leukocyte esterase Test strip Ql (U) Negative Negative Jeimy/uL [facility] Nitrite Ql (U) Negative Negative [facility] th pH (U) 6.0 [pH] 5.0 - 8.0 pH [facility] Protein (U) [Mass/Vol] 20 mg/dL Abnormal Negative [facility] RBC LM.HPF (Urine sed) [#/Area] Negative [facility] Specific gravity (U) [Rel density] 1.028 1.005 - 1.030 [facility] Urobilinogen (U) [Mass/Vol] Normal Normal (0-1) mg/dL [facility] Volume, Urine 12 mL [facility] WBC LM.HPF (Urine sed) [#/Area] 0-2 [facility] US ABD RT UPPER QUADRANTon 0 06-10-2022 [facility] VWF GP1bM ACTIVITYon 021 VWF GP1bM ACTIVITY 76 IU/dL Normal 52 - 180 [facility] Comment on above: Result Comment: Inte rpretation and Comments The VWF GPIbM activity result is above the level that the NHLBI expert panel associated with increased bleeding risk. Correlation with Factor VIII activity, other VWF assays and clinical history is suggested. Interpretive Comments: VWF and Factor VIII are acute phase reactants. Levels will be elevated postoperatively, with inflammation, stress, physical activity, , estrogen therapy and hyperthyroidism. Levels vary with ABO blood group (group O individuals having approximately 25% lower levels)#, but ABO group is not taken into account for diagnosis of von Willebrand disease (VWD). VWF levels may be artifactually reduced as a consequence of improper sample handling. If any of these factors are felt to be obscuring a diagnosis of VWD, repeat testing should be considered. The NHLBI guidelines indicate that clinical history of bleeding (in both the patient and family) should be incorporated into the diagnostic criteria for VWD. Quantitative VWF levels less than 50 IU/dL are associated with increased bleeding risk, while levels less than 30 IU/dL are more likely to indicate VWD. These recommendations allow treatment of patients with VWF levels between 30 and 50 IU/dL who are at increased risk for bleeding. The VWF GPIbM activity assay is a measure of VWF activity, quantifying the interaction of VWF with recombinant platelet GPIb without using ristocetin to drive that interaction. Unlike the VWF ristocetin cofactor assay, the VWF GPIbM assay does not report falsely low values in individuals who possess the common [id number] polymorphism, and may report higher levels than the VWF ristocetin cofactor assay in patients with type 2B VWD. # Saeed DELAROSA, et al. Haemophilia 2008; 14:171-232 This test was developed and its performance characteristics determined by [employer]. It has not been cleared or approved by the [place] Food and Drug Administration. This test is used for clinical purposes. It should not be regarded as investigational or for research. This laboratory is certified under the Clinical Laboratory Improvement Amendments (CLIA) as qualified to perform high complexity clinical laboratory testing. Performed By: #### V WF #### [employer] [address] [address] [place], [place] [id number] RISTOCETIN COFACTORon 2020 RISTOCETIN COFACTOR 57 % Normal 50-200 [facility] Comment on above: Performed By: #### R ISTC #### [facility] [place], [place] [id number] PLATELET AGGREGATIONon 07-27 ADP 20 :ATP RELEASE 1.0 nM Normal 0.2 - 1.6 [facility] Comment on above: Performed By: #### P LAGG ####[id number] [address] ADP 20 MAX AGGREG 85 % MAX Normal 70 - 100 [facility] Comment on above: Performed By: #### P LAGG ####[id number] [id number], [place] [address] ADP MAX AGGREG 47 % MAX Low 70 - 100 [facility] Comment on above: Performed By: #### P LAGG ####[id number] [id number], [place] [address] ADP:ATP RELEASE 0.2 nM Normal 0.2 - 1.6 [facility] Comment on above: Performed By: #### P LAGG ####[id number] [id number], [place] [address] ARACH MAX AGGREG 89 % MAX Normal 66 - 100 [facility] Comment on above: Performed By: #### P LAGG ####[id number] [id number], [place] [address] ARACH:ATP RELEASE 1.90 nM High 0.00 - 1.30 [facility] Comment on above: Performed By: #### P LAGG ####[id number] [id number], [place] [address] COLLAGEN MAX AGGREG 98 % MAX Normal 70 - 100 [facility] Comment on above: Performed By: #### P LAGG ####[id number] [address] COLLAGEN:ATP RELEASE 1.30 nM Normal 0.40 - 1.90 [facility] Comment on above: Performed By: #### P LAGG ####[id number] [id number], [place] [address] EPINEPH 100 MAX AGGREG 9 % MAX Low 67 - 95 [facility] Comment on above: Performed By: #### P LAGG ####[id number] [id number], [place] [address] EPINEPH 100:ATP RELEASE 0.00 nM Low 0.30 - 1.70 [facility] Comment on above: Performed By: #### P LAGG ####[id number] [id number], [place] [address] EPINEPH MAX AGGREG 10 % MAX Low 67 - 95 [facility] Comment on above: Performed By: #### P LAGG ####[id number] [id number], [place] [address] EPINEPH:ATP RELEASE 0.00 nM Low 0.30 - 1.70 [facility] Comment on above: Performed By: #### P LAGG ####[facility] [place], [place] [address] [address] [address] INTERPRETATION ABNORMAL Normal [facility] Comment on above: Result Comment: SIGN IFICANT FINDINGS: 1) DECREASED PLATELET AGGREGATION RESPONSE TO LOW DOSE ADP (5 uM) AND EPINEPHRINE (10 AND 100 uM) 2) DECREASED DENSE GRANULE RELEASE WITH EPINEPHRINE (10 AND 100 uM) A LABORATORY STUDY OF PLATELET AGGREGATION AND STIMULATED GRANULE RELEASE WAS PERFORMED. THE PLATELET COUNT AND PLATELET MORPHOLOGY IS NORMAL. THE PLATELET AGGREGATION STUDY IS ABNORMAL. THE PLATELET AGGREGATION RESPONSE TO LOW DOSE ADP (5 uM) AND EPINEPHRINE (10 AND 100 uM) IS DECREASED. THE AGGREGATION RESPONSE WHIT HIGH DOSE ADP (20 uM) COLLAGEN AND ARACHIDONIC ACID A IS NORMAL. THE ATP GRANULE RELEASE WITH EPINEPHRINE ((10 AND 100 uM) IS ESSENTIALLY ABSENT WHEREAS REMAINING AGENTS (COLLAGEN, ARACHIDONIC ACID, ADP) ARE NORMAL. THE RISTOCETIN INDUCED PLATELET AGGREGATION AT 600, 900 AND 1500 ug/mL SHOWS A NORMAL DOSE RESPONSE. SUMMARY: THE PATTERN OF PLATELET REACTIVITY IS NONSPECIFIC, BUT THERE IS A HISTORY OF VWD TYPE 1 PER OUR ELECTRONIC MEDICAL RECORD SYSTEM. THESE FINDINGS ARE COMPATIBLE WITH THAT HISTORY, BUT NOT CONFIRMATORY OF A DIAGNOSIS OF TYPE 1 VWD. IF VON WILLEBRAND DISEASE EVALUATION IS INDICATED, SUGGEST ORDERING A VON WILLEBRAND PANEL FOR FURTHER EVALUATION. THIS INTERPRETATION IS RENDERED IN THE ABSENCE OF A MEDICATION HISTORY. PLEASES CORRELATE THESE LABORATORY RESULTS WITH CLINICAL FINDINGS AND MEDICATION HISTORY Performed By: #### P LAGG ####[id number] [address] PLT AGGREG REVIEW SEE BELOW Normal [facility] Comment on above: Result Comment: PERF ORMING PATHOLOGIST: DR KAE SILVA, Performed By: #### P LAGG ####[id number] [facility] [address] [address] RISTO 1200 MAX AGG Canceled Normal [facility] Comment on above: Performed By: #### P LAGG ####[id number] [address] RISTO 1500 MAX AGG 87.0 % MAX Normal 75.0 - 100.0 [facility] Comment on above: Performed By: #### P LAGG ####[id number] [id number], [place] [address] RISTO 600 MAX AGG 5.0 % MAX Normal 0.0 - 26.0 [facility] Comment on above: Performed By: #### P LAGG ####[id number] [id number], [place] [address] RISTO 900 MAX AGG 83.0 % MAX Normal 0.0 - 90.0 [facility] Comment on above: Performed By: #### P LAGG ####[id number] [place] [address] FACTOR VIIon 07-26-2020 FACTOR VII 101 % Normal 50 - 150 [facility] Comment on above: Performed By: #### F AC7 #### [facility] [address] [place] [address] VON WILLEBRAND ANTIGENon VON WILLEBRAND ANTIGEN 76 % Normal 50 - 220 [facility] Comment on above: Performed By: #### V WFAC ####[id number] [place] [address] Clinic Note - Heme Onc-Benig n Heme New Visiton 07-25-2020 Clinic Note - Heme Onc-Benign Heme New Visit Patient Visit Information: Visit Type: Benign Heme New Visit History of Present Illness: ID Statement: JERRICA HERNANDEZ is a 25 year old Female Chief Complaint: Von Willebrand's Dx Type 1 Interval History: She was referred to benign hematology for consultation of VWD dx at age 17. She has seen Dr. Martinez from [facility] and [facility] for her VWD. Diagnosed with Von Willebrand's dx Type 1 at age 17 at [facility]. Was getting pre-op labs for T&A with abnormal coags. Bleeding history - bruised easily. As child broken bones (4) and multiple stitches from small accidents like falling off bike, got Pinky toe caught in door. Heavy periods and prolonged (one over a month). For T&A surgery was given Amicar and Stimate (DDAVP) - had hard time healing and Amicar (old formula) caused vomiting. In 2017, for was given Humate P. Normally uses Stimate 2-4 times a year. Normally for accidents and used to take for heavy menses before IUD. Has IUD now which regulates periods and no longer heavy. Takes Amicar as needed for dental work. Needs dental work again - does not know what exactly yet as she has not make an appt but has a couple broken teeth. Also, talking about having another child in the future though has an IUD in place. Family History: son with vonWillebrands Review of Systems: Review of Systems: System Review-All other systems including Neurologic, Cardiac, Gastrointestinal, Endocrine, Dermatologic, ENT, Respiratory, Infectious, Urologic, Musculoskeletal have been reviewed and are negative for complaint outside of events noted below and within the assessment. Lauren IUD -- didn't help initially. Now it's better DDAVP is not used regularly for menstrual issues. Some dental bleeding NO nose bleeds. Still has bruising. She has slow healing. She is in the midst of dental work -- hoping to have this done before she has another baby Uses both DDAvp and amicar before dental work. No recent issues with renal status. Allergies and Intolerances: Allergies: aspirin: Drug, Bleeding, Active Outpatient Medication Profile: * Patient Currently Takes Medications as of 25-Jul-2020 19:31 documented in Structured Notes Stimate 0.15 mg/inh nasal spray: 1 spray(s) nasal each nostril before dental procedures, Start Date: 25-Jul-2020 aminocaproic acid 1000 mg oral tablet: 5 tab(s) orally every 6 hours , Start Date: 25-Jul-2020 Medical History: Bruising: ICD-10: T14.8XXA, Status: Active Von Willebrand disease, type 1a: ICD-10: D68.0, Status: Active Family History: Family history of von Willebrand disease: ICD-10: Z83.2, Status: Active, Relationship to Patient: Son (Age at Diagnosis: Age Unknown) Family History: Family history of von Willebrand disease (Son Age Unknown) Social History: Social Substance History Smoking Statusformer smoker Tobacco Usedenies Alcohol Useoccasionally Drug Usedenies Additional History Lives with spouse and 4 yo son Performance: ECOG Performance Status: 0 Fully Active Vitals and Measurements: Vitals: Temp: 36.5 HR: 99 RR: 18 BP: 134/90 SPO2%: 100 Measurements: HT(cm): 158.2 WT(kg): 92.8 BSA: 2.01 BMI: 37 Last 3 Weights & Heights: Date: Weight/Scale Type:Height: 25-Jul-2020 08:4092.8 kg / standing sxuuj783.2 cm 04-Jul-2020 10:0391.5 kg / standing mudtk010.2 cm Physical Exam: Constitutional: Looks well. awake/alert/oriented x3, no distress, cooperative Eyes: PER clear sclera Head/Neck: Neck supple, no apparent injury, thyroid without mass or tenderness, No JVD, trachea midline, Respiratory/Thorax: Patent airways, normal breath sounds with good chest expansion, thorax symmetric No wheezing, rhonchi or rales. Cardiovascular: Regular, rate and rhythm, normal S 1and S 2 .no significant murmurs Gastrointestinal: soft, non-tender, no rebound tenderness or guarding, no masses palpable, no organomegaly, +BS, Extremities: normal extremities, no edema, no contusions or wounds, no clubbing Neurological: alert and oriented x3, normal gait Lymphatic: No significant lymphadenopathy Psychological: Appropriate mood and behavior Skin: Warm and dry, no lesions, no rashes resolving ecchymoses UE. Lab Results Results I have reviewed these laboratory results: Comprehensive Metabolic Panel 04-Jul-2020 10:50:00 ResultValue Glucose, Serum 96 NA 137 K 4.5 CL 106 Bicarbonate, Serum 28 Anion Gap, Serum 8 L BUN 7 CREAT 0.63 GFR-Non >60 GFR- >60 Calcium, Serum 9.2 ALB 4.4 ALKP 62 T Pro 6.9 T Bili 0.3 Alanine Aminotransferase, Serum 17 Aspartate Transaminase, Serum 17 Complete Blood Count + Differential 04-Jul-2020 10:50:00 ResultValue White Blood Cell Count 8.6 Red Blood Cell Count 5.08 HGB 15.3 HCT 46.1 H MCV 91 MCHC 33.2 PLT 236 RDW-CV 12.5 Neutrophil % 57.1 Lymphocyte (more content not included)... Normal [facility] Clinic Note - Intakeon 07-25 Clinic Note - Intake Patient Visit Infor mation: Visit TypeFollow Up Visit Source of Informationpatient Admission Information: Admission Since Last VisitNo Vital Signs: Temp (degrees C)36.5 degrees C Temperaturecore Heart Rate (beats/min)99 beats per minute Respiration (breaths/min)18 breath per minute BP Systolic (mm Hg)134 mmHg BP Diastolic (mm Hg)90 mmHg BP Mean (mm Hg)104 mmHg Height in cm158.2 centimeter(s) Height Methodstated per last note Heightstanding Weight in kg92.8 kilogram(s) Weight Methodstanding scale BMI (kg/m2)37 kg/M2 BSA (m2)2.01 M2 Last 3 Weights & HeightsDate: Weight/Scale Type:Height: 04-Jul-2020 10:0391.5 kg / standing .2 cm SpO2 (%)100 % SpO2 Patient Onroom air Pain Screening: Patient States Painno (0) Allergies: aspirin: Drug, Bleeding, Active Outpatient Medication Profile: * No Current Medications as of 25-Jul-2020 09:07 documented in Structured Notes Notification: NotificationsAll annual screens currently due. Travel History: COVID-19 Screening Completedno exposure or symptoms Falls: Have you fallen in the last 6 monthsno Do you have a fear of fallingno Do you feel you need assistanceno Is the patient using an assistive deviceno Not a falls riskimplement environmental risk factors interventions Electronic Signatures: Nola Harvey) (Signed 25-Jul-2020 09:07) Authored: Patient Visit Information, Vital Signs, Allergies, Outpatient Medication Profile, Notification, Travel History, Falls Last Updated: 25-Jul-2020 09:07 by Nola Harvey) Normal [facility] COMPREHENSIVE PANELon 2020 Albumin [Mass/Vol] 4.4 g/dL Normal 3.4 - 5.0 [facility] Comment on above: Performed By: #### C MP #### [facility] [address] [place] [address] ALP [Catalytic activity/Vol] 62 U/L Normal 33 - 110 [facility] Comment on above: Performed By: #### C MP #### [facility] [address] [place] [address] ALT [Catalytic activity/Vol] 17 U/L Normal 7 - 45 [facility] Comment on above: Result Comment: Joann ents treated with Sulfasalazine may generate falsely decreased results for ALT. Performed By: #### C MP #### [facility] [address] [place] [address] Anion gap [Moles/Vol] 8 mmol/L Low 10 - 20 [facility] Comment on above: Performed By: #### C MP #### [facility] [address] [place] [address] AST [Catalytic activity/Vol] 17 U/L Normal 9 - 39 [facility] Comment on above: Performed By: #### C MP #### [facility] [address] [place] [address] Bilirubin [Mass/Vol] 0.3 mg/dL Normal 0.0 - 1.2 [facility] Comment on above: Performed By: #### C MP #### [facility] [address] [place] [address] Calcium [Mass/Vol] 9.2 mg/dL Normal 8.6 - 10.6 [facility] Comment on above: Performed By: #### C MP #### [facility] [address] [place] [address] Chloride [Moles/Vol] 106 mmol/L Normal 98 - 107 [facility] Comment on above: Performed By: #### C MP #### [facility] [address] [place] [address] Creatinine [Mass/Vol] 0.63 mg/dL Normal 0.50 - 1.05 [facility] Comment on above: Performed By: #### C MP #### [facility] [address] [place] [address] GFR- AM. >60 Normal >60 [facility] Comment on above: Result Comment: CALC ULATIONS OF ESTIMATED GFR ARE PERFORMED USING THE MDRD STUDY EQUATION FOR THE IDMS-TRACEABLE CREATININE METHODS. CLIN CHEM 2007;53:766-72 Performed By: #### C MP #### [facility] [address] [place] [address] GFR-NON AM. >60 Normal >60 [facility] Comment on above: Performed By: #### C MP #### [facility] [address] [place] [address] Glucose [Mass/Vol] 96 mg/dL Normal 74 - 99 [facility] Comment on above: Performed By: #### C MP #### [facility] [address] [place] [address] HCO3 (Bld) [Moles/Vol] 28 mmol/L Normal 21 - 32 [facility] Comment on above: Performed By: #### C MP #### [facility] [address] [place] [address] Potassium [Moles/Vol] 4.5 mmol/L Normal 3.5 - 5.3 [facility] Comment on above: Performed By: #### C MP #### [facility] [address] [place] [address] Protein [Mass/Vol] 6.9 g/dL Normal 6.4 - 8.2 [facility] Comment on above: Performed By: #### C MP #### [facility] [address] [place] [address] Sodium [Moles/Vol] 137 mmol/L Normal 136 - 145 [facility] Comment on above: Performed By: #### C MP #### [facility] [address] [place] [address] Urea nitrogen [Mass/Vol] 7 mg/dL Normal 6 - 23 [facility] Comment on above: Performed By: #### C MP #### [facility] [address] [place] [address] FERRITINon 07-05-2020 FERRITIN 43 ug/L Normal 8 - 150 [facility] Comment on above: Performed By: #### F ERRI #### [facility] [address] [place] [address] IRON + TIBCon 07-05-2020 % SATURATION 21 % Low 25 - 45 [facility] Comment on above: Performed By: #### I RONT #### [facility] [address] [place] [address] Iron [Mass/Vol] 71 ug/dL Normal 35 - 150 [facility] Comment on above: Performed By: #### I SANTA #### [facility] [address] [place] [address] TIBC 336 ug/dL Normal 240 - 445 [facility] Comment on above: Performed By: #### I SANTA #### [facility] [address] [place] [address] CBC AND DIFFERENTIALon 07-04 Basophils (Bld) [#/Vol] 0.04 10*3/uL Normal 0.00 - 0.10 [facility] Comment on above: Performed By: #### C BCDF #### [address] [address] Basophils/100 WBC (Bld) 0.5 % Normal 0.0 - 2.0 [facility] Comment on above: Performed By: #### C BCDF #### [address] [address] Eosinophils (Bld) [#/Vol] 0.35 10*3/uL Normal 0.00 - 0.70 [facility] Comment on above: Performed By: #### C BCDF #### [address] [address] Eosinophils/100 WBC (Bld) 4.1 % Normal 0.0 - 6.0 [facility] Comment on above: Performed By: #### C BCDF #### [address] [address] Erythrocyte distribution width (RBC) [Ratio] 12.5 % Normal 11.5 - 14.5 [facility] Comment on above: Performed By: #### C BCDF #### [address] [address] Hematocrit (Bld) [Volume fraction] 46.1 % High 36.0 - 46.0 [facility] Comment on above: Performed By: #### C BCDF #### [address] [address] Hemoglobin (Bld) [Mass/Vol] 15.3 g/dL Normal 12.0 - 16.0 [facility] Comment on above: Performed By: #### C BCDF #### [address] [address] Lymphocytes (Bld) [#/Vol] 2.59 10*3/uL Normal 1.20 - 4.80 [facility] Comment on above: Performed By: #### C BCDF #### [address] [address] Lymphocytes/100 WBC (Bld) 30.0 % Normal 13.0 - 44.0 [facility] Comment on above: Performed By: #### C BCDF #### [address] [address] MCHC (RBC) [Mass/Vol] 33.2 g/dL Normal 32.0 - 36.0 [facility] Comment on above: Performed By: #### C BCDF #### [address] [address] MCV (RBC) [Entitic vol] 91 fL Normal 80 - 100 [facility] Comment on above: Performed By: #### C BCDF #### [address] [address] Monocytes (Bld) [#/Vol] 0.72 10*3/uL Normal 0.10 - 1.00 [facility] Comment on above: Performed By: #### C BCDF #### [address] [address] Monocytes/100 WBC (Bld) 8.3 % Normal 2.0 - 10.0 [facility] Comment on above: Performed By: #### C BCDF #### [address] [address] Neutrophils (Bld) [#/Vol] 4.94 10*3/uL Normal 1.20 - 7.70 [facility] Comment on above: Result Comment: Perc ent differential counts (%) should be interpreted in the context of the absolute cell counts (cells/L). Performed By: #### C BCDF #### [address] [address] Neutrophils/100 WBC (Bld) 57.1 % Normal 40.0 - 80.0 [facility] Comment on above: Performed By: #### C BCDF #### [address] [address] Platelets (Bld) [#/Vol] 236 10*3/uL Normal 150 - 450 [facility] Comment on above: Performed By: #### C BCDF #### [address] [address] RBC 5.08 x10E12/L Normal 4.00 - 5.20 [facility] Comment on above: Performed By: #### C BCDF #### [address] [address] WBC (Bld) [#/Vol] 8.6 10*3/uL Normal 4.4 - 11.3 [facility] Comment on above: Performed By: #### C BCDF #### [address] [address] Clinic Note - Heme Onc-Benig n Heme New Visiton 07-04-2020 Clinic Note - Heme Onc-Benign Heme New Visit Patient Visit Information: Visit Type: Benign Heme New Visit, Consult History of Present Illness: ID Statement: JERRICA HERNANDEZ is a 25 year old Female Chief Complaint: Von Willebrand's Dx Type 1 Interval History: Patient is a 25 yo female with a PMH of VWD, iron def, menorrhagia, Vessico uretal reflux and was referred to benign hematology for consultation of VWD. She self-referred. Used to see Dr. Martinez from [facility] and [facility] for her VWD. Sees Dr Chávez with [facility] for kidney issues. Today, patient presents for initial consultation. Diagnosed with Von Willebrand's dx Type 1 at age 17 at [facility]. Was getting pre-op labs for T&A. Bleeding history - bruised easily. As child broken bones (4) and multiple stitches from small accidents like falling off bike, got Pinky toe caught in door. Heavy periods and prolonged (one over a month). For T&A surgery was given Amicar and Stimate (DDAVP) - had hard time healing and Amicar (old formula) caused vomiting. In 2016, for was given Humate P. Normally uses Stimate 2-4 times a year. Normally for accidents and used to take for heavy menses before IUD. Has IUD now which regulates periods and no longer heavy. Takes Amicar as needed for dental work. Needs dental work again - does not know what exactly yet as she has not make an appt but has a couple broken teeth. Also, talking about having another child in the future. Denies abnormal weight loss, night sweats, fever. Denies fatigue, chills, sob, cp, n/v/d, n/t. No PICA. Denies any current abnormal bleeding or bruising. No recurrent infections or lymphadenopathy. No joint/body pain. Never had blood/blood products. Denies NSAID use. SH: . Diet - regular, Tobacco - no, ETOH - rarely, Rec drug use - no. . Age 5 son PSH: ureter reimplantation 1996, T&A 2012, 2016 FH: VWD (her son has it), Multiple Sclerosis, Both grandmothers had bleeding issues (menstrual) Meds: IUD- Mirena. Stimate Review of Systems: Review of Systems: 10 point review of systems negative except as state in HPI. Allergies and Intolerances: Allergies: aspirin: Drug, Bleeding, Active Outpatient Medication Profile: * No Current Medications as of 04-Jul-2020 10:09 documented in Structured Notes Family History: No Family History items are recorded in the problem list. Social History: Social Substance History: Smoking Statusnever smoker Tobacco Usedenies Alcohol Useoccasionally Drug Usedenies Vitals and Measurements: Vitals: Temp: 36.6 HR: 96 RR: 18 BP: NA/NA SPO2%: 100 Measurements: HT(cm): 158.2 WT(kg): 91.5 BSA: 2 BMI: 36.5 Last 3 Weights & Heights: Date: Weight/Scale Type:Height: 04-Jul-2020 10:0391.5 kg / standing rihwp106.2 cm Physical Exam: Constitutional: Well developed, awake/alert/oriented x3, no distress, alert and cooperative Eyes: PERRL, EOMI, clear sclera ENMT: mucous membranes moist, no apparent injury, no lesions seen Head/Neck: Neck supple, no apparent injury, trachea midline Respiratory/Thorax: Patent airways, CTAB, normal breath sounds with good chest expansion, thorax symmetric Cardiovascular: Regular, rate and rhythm, no murmurs, 2+ equal pulses of the extremities, normal S 1and S 2 Gastrointestinal: Abdomen soft nontender, nondistended, + bowel sounds. No organomegaly Musculoskeletal: ROM intact, no joint swelling, normal strength Extremities: normal extremities, no cyanosis, no clubbing, no edema Neurological: Patient is alert and oriented x3. Nonfocal exam. No myoclonus Lymphatic: No significant lymphadenopathy Psychological: Pleasant, appropriate, and easily engaged Skin: Warm and dry, no lesions, no rashes Lab Results: Results CBC date/time WBC HGB HCT PLT Neut 04-Jul-2020 10:50 8.6 15.3 46.1(H) 236 4.94 BMP date/time NA K CL CO2 BUN CREAT 24-Jul-2012 18:48 141 3.9 103 N/A 6 0.70 I have reviewed these laboratory results: Complete Blood Count + Differential 04-Jul-2020 10:50:00 ResultValue White Blood Cell Count 8.6 Red Blood Cell Count 5.08 HGB 15.3 HCT 46.1 H MCV 91 MCHC 33.2 PLT 236 RDW-CV 12.5 Neutrophil % 57.1 Lymphocyte % 30.0 Monocyte % 8.3 Eosinophil % 4.1 Basophil % 0.5 Neutrophil Count 4.94 Lymphocyte Count 2.59 Monocyte Count 0.72 Eosinophil Count 0.35 Basophil Count 0.04 Assessment and Plan: Assessment and Plan: Assessment: Patient is a 25 yo female with a PMH of VWD, iron def, menorrhagia, Vessico uretal reflux and was referred to benign hematology for consultation of VWD. She self-referred. Used to see Dr. Martinez from [facility] and [facility] for her VWD. Sees Dr Chávez with [facility] for kidney issues. Today, patient presents for initial consultation/to establish care. Diagnosed with Von Willebrand's dx Type 1 at age 17 at [facility]. I reviewed patient's chart including bu (more content not included)... Normal [facility] Clinic Note - Intakeon 07-04 Clinic Note - Intake Patient Visit Infor mation: Visit TypeNew Visit Patient StatesNPV Source of Informationpatient Admission Information: Admission Since Last VisitNo Vital Signs: Temp (degrees C)36.6 degrees C Temperaturecore Heart Rate (beats/min)96 beats per minute Respiration (breaths/min)18 breath per minute Height in cm158.2 centimeter(s) Height Methodmeasured 07/04/20 BAREFOOT Heightstanding Weight in kg91.5 kilogram(s) Weight Methodstanding scale BMI (kg/m2)36.5 kg/M2 BSA (m2)2 M2 SpO2 (%)100 % SpO2 Patient Onroom air Pain Screening: Patient States Painno (0) Allergies: aspirin: Drug, Bleeding, Active Outpatient Medication Profile: * No Current Medications as of 04-Jul-2020 10:09 documented in Structured Notes Notification: NotificationsAll annual screens currently due. Travel History: COVID-19 Screening Completedno exposure or symptoms Falls: Have you fallen in the last 6 monthsno Do you have a fear of fallingno Do you feel you need assistanceno Is the patient using an assistive deviceno Electronic Signatures: Wandy Mathews) (Signed 04-Jul-2020 10:10) Authored: Patient Visit Information, Vital Signs, Allergies, Notification, Travel History, Falls Last Updated: 04-Jul-2020 10:10 by Wandy Mathews) Normal [facility] Add on test from HISon 04-27 Add on test from HIS Accepted Normal [facility] Comment on above: Result Comment: Spec imen available & acceptable for analysis. Performed By: #### H EMDF, BMP3, QWAL ####[facility] [place] [address] Add on test from HIS Accepted Normal [facility] Comment on above: Result Comment: Spec imen available & acceptable for analysis. Performed By: #### H EMDF, BMP3, QWAL ####[facility] [place] [address] Basic Metabolic Panelon Calcium mass conc 10.1 mg/dL Normal 8.4-10.4 [facility] Comment on above: Performed By: #### B MP3, QWAL, HEMDF, MDIFF, MG3, TSH5, TROPN ####[facility] [place] [address] Glucose mass conc 159 mg/dL High 70-100 [facility] Comment on above: Performed By: #### B MP3, QWAL, HEMDF, MDIFF, MG3, TSH5, TROPN ####[facility] [address] [place] [facility] [place] [address] Urea nitrogen mass conc 6 mg/dL Low 7-20 [facility] Comment on above: Performed By: #### B MP3, QWAL, HEMDF, MDIFF, MG3, TSH5, TROPN ####[place] [address] [place] [address] Anion gap 3 molar conc 16 Normal [facility] Comment on above: Performed By: #### B MP3, QWAL, HEMDF, MDIFF, MG3, TSH5, TROPN ####[place] [address] [place] [address] CO2 molar conc 25 mmol/L Normal 22-30 [facility] Comment on above: Performed By: #### B MP3, QWAL, HEMDF, MDIFF, MG3, TSH5, TROPN ####[facility] [place] [address] [place] [address] Creatinine mass conc 0.62 mg/dL Normal 0.52-1.25 [facility] Comment on above: Performed By: #### B MP3, QWAL, HEMDF, MDIFF, MG3, TSH5, TROPN ####[place] [address] [place] [facility] [place] [address] GFR/1.73 sq M predicted among blacks MDRD vol rate/area (S/P/Bld) mL/min/{1.73_m2} Normal >60 [facility] Comment on above: Performed By: #### B MP3, QWAL, HEMDF, MDIFF, MG3, TSH5, TROPN ####[facility] [address] [place] [address] GFR/1.73 sq M predicted among non-blacks MDRD vol rate/area (S/P/Bld) mL/min/{1.73_m2} Normal >60 [facility] Comment on above: Result Comment: Sour ce- MDRD equation with creatinine calibration to IDMS(NKDEP) eGFR not recommended for drug dose adjustment Performed By: #### B MP3, QWAL, HEMDF, MDIFF, MG3, TSH5, TROPN ####[facility] [facility] [place] [address] Potassium molar conc 2.9 mmol/L Low 3.5-5.1 [facility] Comment on above: Performed By: #### B MP3, QWAL, HEMDF, MDIFF, MG3, TSH5, TROPN ####[facility] [place] [address] Chloride molar conc 101 mmol/L Normal 98-107 [facility] Comment on above: Performed By: #### B MP3, QWAL, HEMDF, MDIFF, MG3, TSH5, TROPN ####[facility] [facility] [place] [address] Sodium molar conc 142 mmol/L Normal 135-145 [facility] Comment on above: Performed By: #### B MP3, QWAL, HEMDF, MDIFF, MG3, TSH5, TROPN ####[facility] [address] CR Chest PA/LATon 04-27-2018 CR Chest PA/LAT Patient Name: JERRICA HERNANDEZ Diagnostic Radiology Exam Date/Time 04/26/2018 22:59:53 EST Exam CR Chest PA/LAT Ordering Physician KRYS DUMONT RYAN Accession Number [id number] CPT4 Codes 61376 () Reason For Exam cough Report CHEST X-RAY TWO VIEWS CLINICAL INDICATION: cough TECHNIQUE: Frontal and lateral views of the chest. COMPARISON: None FINDINGS: Lungs are clear. No pleural effusion or pneumothorax. No vascular congestion. Heart size normal. IMPRESSION: 1. No acute finding. Report Dictated on Final Dictating Physician: MD JAMES JOHN R Signed Date and Time: 04/26/2018 11:06 pm Signed by: MD JAMES JOHN R Transcribed Date and Time: 04/26/2018 11:07 Normal [facility] D-Dimer, Innovanceon 04-27-2 019 D-Dimer, Innovance 0.33 mg/L Normal 0.00-0.50 [facility] Comment on above: Result Comment: Inno hong D-Dimer values of <0.50 mg/L FEU can be used incombination with a pre-test probability model (e.g. Well's)to exclude pulmonary embolism (PE) disease, as well as dario in the diagnosis of deep vein thrombosis (DVT). Performed By: #### H EMDF, BMP3, QWAL ####[place] [address] [place] [address] Drugs of Abuseon 04-27-2018 Phencyclidine (PCP), Ur Negative Normal [facility] Comment on above: Result Comment: The expected value for all of the drugs listedabove is Negative.The following drugs or drug groups have been screenedfor by Immunoassay at the following thresholds:Amphetamine class (1000 ng/mL), Barbiturates (200 ng/mL),Benzodiazepines (200 ng/mL), Cocaine (300 ng/mL),Methadone (300 ng/mL), Opiates (300 ng/mL),Oxycodone (100 ng/mL), and PCP (25 ng/mL).NOTE: These results are for medical treatment only.Analysis performed using non-forensic procedures.POSITIVE results are NOT confirmed by a more specificalternative method unless requested. If confirmation isneeded, request confirmation under separate order. Performed By: #### H EMDF, BMP3, QWAL ####[place] [address] [place] [address] Cocaine, Ur Negative Normal [facility] Comment on above: Performed By: #### H EMDF, BMP3, QWAL ####[facility] [place] [address] Opiates, Ur Negative Normal [facility] Comment on above: Performed By: #### H EMDF, BMP3, QWAL ####[place] [address] [place] [address] Amphetamines, Ur Negative Normal [facility] Comment on above: Performed By: #### H EMDF, BMP3, QWAL ####[place] [address] [place] [address] Methadone, Ur Negative Normal [facility] Comment on above: Performed By: #### H EMDF, BMP3, QWAL ####[place] [address] [place] [address] Benzodiazepines, Ur Negative Normal [facility] Comment on above: Performed By: #### H EMDF, BMP3, QWAL ####[place] [address] [place] [address] Barbiturates, Ur Negative Normal [facility] Comment on above: Performed By: #### H EMDF, BMP3, QWAL ####[place] [address] [place] [address] Oxycodone/Oxymorphine ,Ur Negative Normal [facility] Comment on above: Performed By: #### H EMDF, BMP3, QWAL ####[address] [place] [address] Hemogram w/ Autodiffon 04-27 Erythrocyte distribution width Auto Ratio (RBC) 13.1 % Normal 11.5-14.5 [facility] Comment on above: Performed By: #### B MP3, QWAL, HEMDF, MDIFF, MG3, TSH5, TROPN ####[address] [place] [address] Hematocrit Auto Volume Fraction (Bld) 45.8 % Normal 35.0-47.0 [facility] Comment on above: Performed By: #### B MP3, QWAL, HEMDF, MDIFF, MG3, TSH5, TROPN ####[address] [place] [address] Hemoglobin mass conc (Bld) 15.5 g/dL Normal 11.7-16.0 [facility] Comment on above: Performed By: #### B MP3, QWAL, HEMDF, MDIFF, MG3, TSH5, TROPN ####[address] [place] [address] MCH Auto Entitic mass (RBC) 29.4 pg Normal 26.0-34.0 [facility] Comment on above: Performed By: #### B MP3, QWAL, HEMDF, MDIFF, MG3, TSH5, TROPN ####[place] [address] [place] [address] MCHC Auto mass conc (RBC) 33.9 % Normal 32.0-36.0 [facility] Comment on above: Performed By: #### B MP3, QWAL, HEMDF, MDIFF, MG3, TSH5, TROPN ####[address] [place] [address] MCV Auto Entitic volume (RBC) 86.7 fL Normal 79.0-98.0 [facility] Comment on above: Performed By: #### B MP3, QWAL, HEMDF, MDIFF, MG3, TSH5, TROPN ####[address] [place] [address] Platelet mean volume Auto Entitic volume (Bld) 9.5 fL Normal 7.4-10.4 [facility] Comment on above: Performed By: #### B MP3, QWAL, HEMDF, MDIFF, MG3, TSH5, TROPN ####[address] [place] [address] Platelets Auto #/vol (Bld) 246 10*3/uL Normal 140-440 [facility] Comment on above: Performed By: #### B MP3, QWAL, HEMDF, MDIFF, MG3, TSH5, TROPN ####[address] [place] [address] RBC Auto #/vol (Bld) 5.28 10*6/uL High 3.80-5.20 [facility] Comment on above: Performed By: #### B MP3, QWAL, HEMDF, MDIFF, MG3, TSH5, TROPN ####[address] [place] [address] WBC Auto #/vol (Bld) 13.9 10*3/uL High 3.6-10.7 [facility] Comment on above: Performed By: #### B MP3, QWAL, HEMDF, MDIFF, MG3, TSH5, TROPN ####[address] [place] [address] Magnesiumon 04-27-2018 Magnesium mass conc 1.9 mg/dL Normal 1.6-2.3 [facility] Comment on above: Performed By: #### H EMDF, BMP3, QWAL ####[place] [address] [place] [address] Manual Diffon 04-27-2018 Bands 0 % Normal 0-3 [facility] Comment on above: Performed By: #### H EMDF, BMP3, QWAL ####[place] [address] [place] [address] Cells counted 100 Normal [facility] Comment on above: Performed By: #### H EMDF, BMP3, QWAL ####[facility] [place] [address] [place] [address] Abs Baso Cnt 0.1 10*3/uL Normal 0.0-0.2 [facility] Comment on above: Performed By: #### H EMDF, BMP3, QWAL ####[facility] [place] [address] [place] [address] Abs Eosin Cnt 0.0 10*3/uL Normal 0.0-0.5 [facility] Comment on above: Performed By: #### H EMDF, BMP3, QWAL ####[facility] [place] [address] [place] [address] Abs Lymph Cnt 1.1 10*3/uL Normal 1.1-4.5 [facility] Comment on above: Performed By: #### H EMDF, BMP3, QWAL ####[facility] [place] [address] [place] [address] Abs Monocyte Cnt 0.7 10*3/uL Normal 0.2-1.1 [facility] Comment on above: Performed By: #### H EMDF, BMP3, QWAL ####[facility] [place] [address] [place] [address] Abs Neutrophile Cnt 11.4 10*3/uL High 2.2-8.2 [facility] Comment on above: Performed By: #### H EMDF, BMP3, QWAL ####[facility] [place] [address] [place] [address] Atypical Lymphocytes 3 % Abnormal <1 [facility] Comment on above: Performed By: #### H EMDF, BMP3, QWAL ####[facility] [address] [facility] [place] [place] [address] Basophils 1 % Normal 0-2 [facility] Comment on above: Performed By: #### H EMDF, BMP3, QWAL ####[facility] [id number] [address] Eosinophils 0 % Low 1-6 [facility] Comment on above: Performed By: #### H EMDF, BMP3, QWAL ####[facility] [address] [facility] [place] [address] Lymphocytes 8 % Low 20-40 [facility] Comment on above: Performed By: #### H EMDF, BMP3, QWAL ####[facility] [address] [place] [address] Metamyelocytes 1 % Abnormal <1 [facility] Comment on above: Performed By: #### H EMDF, BMP3, QWAL ####[facility] [address] [place] [address] Monocytes 5 % Normal 2-10 [facility] Comment on above: Performed By: #### H EMDF, BMP3, QWAL ####[facility] [address] [place] [address] RBC Morphology NORMAL Normal [facility] Comment on above: Performed By: #### H EMDF, BMP3, QWAL ####[facility] [id number] [place] [address] Seg Neutrophils 82 % High 40-80 [facility] Comment on above: Performed By: #### H EMDF, BMP3, QWAL ####[facility] Center[facility] [address] [place] [address] RESPIRATORY PCR PANELon RESPIRATORY PCR PANEL RESPIRATORY PCR PA JAYCE --> Status: FPOSITIVE: Respiratory Syncytial Virus DETECTED.The [employer] Upper Respiratory Pathogens PCR Panel detects thefollowing targets:AdenovirusCoronavir us 229ECoronavirus NFZ5Ggfgpunqpnx KS73Kzstvapjnbu KA30Ynwxi MetapneumovirusHuman Rhinovirus/EnterovirusInflu dallas AInfluenza BParainfluenza Virus 1Parainfluenza Virus 2Parainfluenza Virus 3Parainfluenza Virus 4Respiratory Syncytial VirusBordetella pertussisBordetella parapertussisChlamydia pneumoniaeMycoplasma pneumoniaeThe [employer] Upper Respiratory Pathogens PCR Panel detects thefollowing targets:AdenovirusCoronavir us 229ECoronavirus KXA4Njnhwcwrflk PD22Gfwjzzzdoif UA70Suthh MetapneumovirusHuman Rhinovirus/EnterovirusInflu dallas AInfluenza BParainfluenza Virus 1Parainfluenza Virus 2Parainfluenza Virus 3Parainfluenza Virus 4Respiratory Syncytial VirusBordetella pertussisBordetella parapertussisChlamydia pneumoniaeMycoplasma pneumoniae Abnormal [facility] Comment on above: Order Comment: Speci men Source Comment:Nasopharyngeal Performed By: #### H EMDF, BMP3, QWAL ####[facility] CenterSa[facility] [address] [facility] [place] [address] Rapid Flu A AND B, RNAon Rapid Influenza A Not Detected Normal Not Detected [facility] Comment on above: Performed By: #### H EMDF, BMP3, QWAL ####[facility] Center[facility] [address] [place] [address] Rapid Influenza B Not Detected Normal Not Detected [facility] Comment on above: Performed By: #### H EMDF, BMP3, QWAL ####[facility] Center[facility] [address] [place] [address] Thyroid Stim. Hormoneon Thyroid Stim. Hormone 0.547 u[IU]/mL Normal 0.46 5-4.68 0 [facility] Comment on above: Performed By: #### H EMDF, BMP3, QWAL ####[facility] Center[facility] [address] [place] [address] Troponin Ion 04-27-2018 Troponin I.cardiac mass conc ng/mL Normal 0.000-0.03 4 [facility] Comment on above: Result Comment: 0.04 6 - 0.400 = Indeterminate> 0.400 = Consider Myocardial Injury Performed By: #### H EMDF, BMP3, QWAL ####[employer] [address] [place] [address] hCG Qual Pregon 04-27-2018 hCG Qual Preg Negative Normal [employer] Comment on above: Result Comment: REF RANGE:Negative .... < 3Questionable Rpt 48-72 HrPositive ..... > 10 Performed By: #### B MP3, QWAL, HEMDF, MDIFF, MG3, TSH5, TROPN ####[facility] [address] [place] [address] ED Provider Noteon 9 Protein mass conc [facility]Patient: Jerrica HernandezMRN: [id number]: 1995Date of Evaluation: 04/26/2018ED Supervising Physician: KANIKA Pastrana independently examined and evaluated Jerrica Hernandez.In brief, she is a 23 y.o. female that presented to the ED. Says 4 days ago shewoke up with sour throat. She woke up the following day with cough and chestcongestion. Since then, symptoms have worsening. She is feeling short of breathand has pleuritic chest pain. She has been coughing a lot. Cough isnonproductive. She has been taking decongestants and other OTCs without relief.No urinary symptoms. No vaginal symptoms. No diarrhea, constipation, abdominalpain. No headache. No fever, headache, nausea, vomiting.Focused exam:Appears stated age. Nontoxic. Polite. Cooperative.MM parched. Uvula midline. No nuchal rigidity. TMs NML.Lungs clear. Nonlabored breathing.Reproducible left rib pain w/o overlying rash.Abd S/NT/ND/BS+Tachycardic w/o MRG on heart auscultation. NML radial and PT pulses.Brief ED course/MDM:? Nursing notes were reviewed. Patient was evaluated. Orders placed as below.? EKG (Per Emergency Physician): sinus tachycardia, borderline repolarizationabnoramlity, no STEMI, normal intervals.? Labs reviewed. Nonspecific leukocytosis. Otherwise unremarkable.? Imaging reviewed.? Patient monitored in the ED. Tachycardia markedly improved with IVF andextended period of observation in the ED. I suspect most of this is related todecongestant use and viral syndrome. Less likely pneumonia. Discussed sendingoff a respiratory panel for further evaluation with which she was agreeable.? She is ambulatory and eating [employer] without issues.? Extensive conversation had regarding antiviral treatment for flu. Given timingof symptoms, this treatment would not likely work. I discussed this with her andwith shared decision making, it was decided this treatment would not be started.Following this emergency department visit, I have a very low suspicion for acutecoronary syndrome, pulmonary embolism, pneumothorax, hemothorax, acute cardiactamponade, pneumonia, esophageal rupture, aortic dissection, periapical abscess,peritonsillar abscess, retropharyngeal abscess, other suppurative complication,lemierre's disease, Ludgwig's angina, epiglotitis, carotid dissection, foreignbody, or similar, emergent process. I discussed this with Jerrica Hernandez anddiscussed symptoms that would warrant return to the emergency department. Idiscussed that she needs to replete her potassium and that this could be doneeating foods rich in potassium. This was reviewed on google with the patient. Iunderscored the importance of following up with Gordonrafal Orlando DO. Jerrica Kraus understood and was agreeable.Medicationsalbute rol (PROVENTIL) nebulizer solution 2.5 mg (2.5 mg Nebulization Given04/26/188)sodium chloride flush 0.9 % injection 3 mL (not administered)0.9 % sodium chloride bolus (not administered)predniSONE (DELTASONE) tablet 60 mg (60 mg Oral Given 04/26/18 2319)0.9 % sodium chloride bolus (0 mLs Intravenous Stopped 04/27/18 0033)potassium chloride (KLOR-CON M) extended release tablet 40 mEq (40 mEq OralGiven 04/27/18 0200)0.9 % sodium chloride bolus (0 mLs Intravenous Stopped 04/27/18 0250)acetaminophen (TYLENOL) tablet 650 mg (650 mg Oral Given 04/27/18 0200)Orders Placed This EncounterProcedures? Rapid influenza A/B antigens? Respiratory Virus PCR Panel? XR CHEST STANDARD (2 VW)? Hemogram (CBC) w/Auto Diff? Basic Metabolic Panel? HCG Qualitative, Serum? Manual Differential? TSH without Reflex? Add On Lab Test? Magnesium? TSH without Reflex? Magnesium? D-Dimer, Quantitative? Add On Lab Test? Urine Drug Screen? Troponin? Add On Lab Test? Troponin? Urinalysis? Vital signs per Policy? EKG 12 Lead - Chest Pain? Saline lock IVCritical Care: 0 minutes, excluding separately reportable procedures were spentdirectly caring for patient, interpreting testing, consulting, and documentingcare. There was a high probability of clinically significant/life threateningdeterioration in the patient's condition which required my urgent intervention.Impression:1. Viral URI with cough2. Tachycardia3. HypokalemiaAll diagnostic, treatment, and disposition decisions were made by myself inconjunction with the JACKELYN. For all further details of the patient's emergencydepartment visit, please see their documentation.(Please note that portions of this note may have been completed with a voicerecognition program. Efforts were made to edit the dictations but occasionallywords are mis-transcribed.)Rowdy Redding MD Acute Care SolutionsRowdy Redding MD04/27/18 0525 [facility] Protein mass conc SH[facility] DUGLAS Gupta [facility] dEPARTMENT eNCOUnterPt Name: Jerrica HernandezMRN: [id number] 1995Date of evaluation: 04/26/2018Provider: CHRIS Espinal have evaluated this patient on my own, per my scope of practice with attendingphysician available for consultationCHIEF COMPLAINTChief ComplaintPatient presents with? Cough? Nasal Congestion? OtalgiaHISTORY OF PRESENT ILLNESS(Location/Symptom, Timing/Onset,Context/Settin g, Quality, Duration, ModifyingFactors, Severity) Note limiting factors.HPIJerrica Hernandez is a 23 y.o. female who presents to the emergency departmentWith complaints of URI symptoms and a cough. Symptoms have been occurring forthe past several days. She states she was recently exposed to her nephew whohave similar illness. She describes her cough is dry and nonproductive. Deniesany fevers, chills nausea, vomiting, and pain, chest pain, shortness of breath,weakness or diaphoresis. No prior treatment for symptoms.Nursing Notes were reviewed.REVIEW OFSYSTEMS(2+ for level 4; 10+ for level 5)Review of SystemsConstitutional: Negative for chills, fatigue and fever.HENT: Positive for congestion, rhinorrhea and sinus pain. Negative for sorethroat.Eyes: Negative for redness.Respiratory: Positive for cough and wheezing. Negative for chest tightness andshortness of breath.Cardiovascular: Negative for chest pain.Gastrointestinal: Negative for abdominal pain, nausea and vomiting.Genitourinary: Negative for dysuria and flank pain.Musculoskeletal: Negative for arthralgias, back pain and myalgias.Skin: Negative for rash.Allergic/Immunologic: Negative for environmental allergies.Neurological: Negative for dizziness, weakness and headaches.Psychiatric/Behav ioral: Negative for confusion and hallucinations.PAST MEDICAL HISTORYPast Medical History:Diagnosis Date? Disease of blood and blood forming organ? ? Vesicoureteral reflux? Von Willebrand disease (HCC)SURGICAL HISTORYPast Surgical History:Procedure Laterality Date? SECTION? KIDNEY SURGERY? TONSILLECTOMYCURRENT MEDICATIONSPrevious Medications No medications on fileALLERGIESAspirin; Ibuprofen; Nsaids; and Vicodin [hydrocodone-acetaminophen] FAMILY HISTORYFamily HistoryProblem Relation Age of Onset? Mult Sclerosis Mother? High Blood Pressure MotherSOCIAL HISTORYSocial HistorySocial History? Marital status: Spouse name: N/A? Number of children: N/A? Years of education: N/ASocial History Main Topics? Smoking status: Current Every Day Smoker Packs/day: 0.50 Types: Cigarettes Last attempt to quit: 09/2015? Smokeless tobacco: Never Used? Alcohol use No? Drug use: No Comment: very little caffeine? Sexual activity: Yes Partners: MaleOther Topics Concern? NoneSocial History Narrative? NoneSCREENINGSPHYSICAL EXAM(up to 7 for level 4, 8 or more for level 5)ED Triage Vitals [04/26/18 2215]BP Temp Temp Source Pulse Resp SpO2 Height Weight(!) 147/89 98 ?F (36.7 ?C) Temporal 148 16 97 % -- 195 lb (88.5 kg)Physical ExamConstitutional: She is oriented to person, place, and time. She appearswell-developed and well-nourished. Non-toxic appearance. No distress.HENT:Head: Normocephalic and atraumatic.Eyes: Conjunctivae are normal. Right eye exhibits no discharge. Left eyeexhibits no discharge.Neck: Normal range of motion. Neck supple.Cardiovascular: Regular rhythm, normal heart sounds and intact distal pulses.Tachycardia present.Pulmonary/Chest: Effort normal. No stridor. No respiratory distress. She haswheezes.Musculoskeletal: Normal range of motion. She exhibits no edema.Lymphadenopathy: She has no cervical adenopathy.Neurological: She is alert and oriented to person, place, and time. GCS eyesubscore is 4. GCS verbal subscore is 5. GCS motor subscore is 6.Skin: Skin is warm and dry. Capillary refill takes less than 2 seconds. She isnot diaphoretic.Psychiatric: She has a normal mood and affect. Her behavior is normal. Judgmentand thought content normal.Nursing note and vitals reviewed.DIAGNOSTIC RESULTSEKG (Per Emergency Physician):RADIOLOGY (Per Emergency Physician):Interpretation per the Radiologist below, if available at the time ofthis note:Xr Chest Standard (2 Vw)Result Date: 04/26/2018Patient Name: JERRICA HERNANDEZ ---DiagnosticRadiology--- Exam Date/Time 04/26/2018 22:59:53 EST ExamCR Chest PA/LAT Ordering Physician KRYS DUMONT RYANAccession Number [id number] CPT4 Codes 17276 () ReasonFor Exam cough Report CHEST X-RAY TWO VIEWS CLINICAL INDICATION: coughTECHNIQUE: Frontal and lateral views of the chest. COMPARISON: None FINDINGS:Lungs are clear. No pleural effusion or pneumothorax. No vascular congestion.Heart size normal. IMPRESSION: 1. No acute finding. Report Dictated onWorkstation: [id number] --- Final --- Dictating Physician: MD JAMES JOHNR Signed Date and Time: 04/26/2018 11:06 pm Signed by: MD JAMES JOHN RTranscribed Date and Time: 04/26/2018 11:07ED BEDSIDE ULTRASOUND:Performed by ED Physician - noneLABS:Labs ReviewedCBC WITH AUTO DIFFERENTIAL - Abnormal; Notable for the following: Result Value WBC 13.9 (*) RBC 5.28 (*) All other components within normal limits Narrative: Test Performed by [facility], [address] [place], [place], [id number] METABOLIC PANEL - Abnormal; Notable for the following: Potassium 2.9 (*) Glucose 159 (*) BUN 6 (*) All other components within normal limits Narrative: Test Performed by [facility], [address] [place] [id number] DIFFERENTIAL - Abnormal; Notable for the following: Seg Neutrophils 82 (*) Lymphocytes 8 (*) Atypical Lymphocytes 3 (*) Eosinophils 0 (*) Metamyelocytes 1 (*) Absolute Neut # 11.4 (*) All other components within normal limits Narrative: Test Performed by [facility], [address] [place] [id number] INFLUENZA A/B ANTIGENS Narrative: Test Performed by [facility], [address] [place] [id number] VIRUS PCR PANELHCG, SERUM, QUALITATIVE Narrative: Test Performed by [facility], [address] [place] [id number] ON LAB TEST Narrative: Test Performed by [facility], [address] [place] [id number] WITHOUT REFLEX Narrative: Test Performed by [facility], [address] [place] [id number] Narrative: Test Performed by [facility], [address] [place] [id number], QUANTITATIVE Narrative: Test Performed by [facility], [address] [place] [id number] Narrative: Test Performed by [facility], [address] [place] [id number] WITHOUT REFLEXMAGNESIUMADD ON LAB TEST Narrative: CHECK COMMENTS FOR ORDERED TESTURINE DRUG SCREENTROPONINADD ON LAB TESTAll other labs were within normal range or not returned as of this dictation.EMERGENCY DEPARTMENT COURSE and DIFFERENTIAL DIAGNOSIS/MDM:Vitals:Vitals : 04/26/18 2215 04/26/18 2252 04/27/18 0022 04/27/18 0234BP: (!) 147/89 110/84 103/61Pulse: 148 142 138 120Resp: 16 18 20 20Temp: 98 ?F (36.7 ?C)TempSrc: Temporal TemporalSpO2: 97% 96% 97% 97%Weight: 88.5 kg (195 lb)Medicationsalbuterol (PROVENTIL) nebulizer solution 2.5 mg (2.5 mg Nebulization Given04/26/182307)sodium chloride flush 0.9 % injection 3 mL (not administered)potassium chloride (KLOR-CON M) extended release tablet 40 mEq (notadministered)acetaminop hen (TYLENOL) tablet 650 mg (not administered)predniSONE (DELTASONE) tablet 60 mg (60 mg Oral Given 04/26/182318)0.9 % sodium chloride bolus (0 mLs Intravenous Stopped 04/27/1832)0.9 % sodium chloride bolus (1,000 mLs Intravenous New Bag 04/27/1832)MDM.Patient is a 23-year-old female presenting with URI symptoms and cough. Oninitial evaluation she was found to be extremely tachycardic in the upper 140sis not having any chest pain. She did have some shortness of breath and wasdiffusely wheezy. She is given aerosols and steroids and improved. She is givenIV hydration, we obtain basic labs and chest x-ray. Pertinent abnormal labsincluded WBC 13.9, potassium 2.9, glucose 159. Chest x-ray is negative asinterpreted by radiology. After IV fluids she did remain tachycardic. She isgiven further fluids we obtained further testing, all of which was essentiallynegative. Patient remained tachycardic in the mid 120s. This is of unclearetiology. She does have a history of von Willebrand's, pulmonary and was monthsunlikely, we did obtain a d-dimer which is normal. Do not feel CTA of the chestis warranted at this time. Influenza test negative. Urine drug screen pending atthis time however patient denies any illicit drug use. She does appear to have aviral respiratory infection, testing is pending and patient is pending furthertreatments, she was signed out to ED physician, Dr. Redding at approximately2:46 AM. She likely will need to be admitted for further evaluation of thistachycardia oversee his note for further details and disposition status.REVAL:CRITICAL CARE TIMETotal Critical Care time was 0 minutes, excluding separately reportableprocedures.There was a high probability of clinically significant/life threateningdeteriorationin the patient's condition which required my urgent intervention.CONSULTS:NoneP ROCEDURES:Unless otherwise noted below, noneProceduresFINAL IMPRESSION1. Viral URI with cough2. Tachycardia3. HypokalemiaDISPOSITION/PLAN DISPOSITIONPATIENT REFERRED TO:No follow-up provider specified.DISCHARGE MEDICATIONS:New Prescriptions No medications on file(Please note: Portions of this note were completed with a voice recognitionprogram. Efforts were made to edit the dictations but occasionally words andphrases are mis-transcribed.)Form [id number] Dumont APRN - CHILD DAY CARE TEACHER (electronically signed)Emergency Medicine ProviderAttila Dumont APRN - TREV04/27/18 [address] [facility] [address] Maxillofacial w/ Contrast on 02-03-2018 CT Maxillofacial w/ Contrast Patient Name: JERRICA HERNANDEZ CT Exam Date/Time 01/12/2018 02:45:[address] Maxillofacial w/ Contrast Ordering Physician CAROLYNN NEVAREZ CHARLES G Accession Number [id number] CPT4 Codes 43051 (), Q9967 () Reason For Exam facial swelling (right low) Addendum Addendum: CT FACIAL BONES WITH CONTRAST: CONTRAST: 75 mL of Isovue-370. No abnormal enhancement is seen within the administration of contrast. Report Dictated on Final Addendum Addendum Dictating Physician: DO MEJIA ALFRED Signed Date and Time: 02/03/2018 1:38 pm Signed by: DO MEJIA ALFRED Transcribed Date and Time: 02/03/2018 1:[address] FACIAL BONES WITHOUT CONTRAST: INDICATION: Facial swelling, dental caries COMPARISON: No previous studies are available for comparison. TECHNIQUE: Transaxial sequence through the facial bones. Multiplanar reconstruction imaging was performed along with three-dimensional imaging by the radiologist on an independent workstation. Evaluation of the facial bones and orbits demonstrates osseous structures appear intact. The nasal bones to the extent of visualization are intact. The paranasal sinuses are clear without evidence of mucosal thickening nor air fluid levels. There is mild nasal septal deviation to the right. Extensive dental caries is noted. The mandible appears to be grossly intact without evidence of osseous erosions. There is extensive soft tissue swelling to the right of and inferior to the mandible. The facial soft tissues are unremarkable. A review of the orbits demonstrates no evidence of orbital mass or fluid collection. The globes exhibit a normal appearance. IMPRESSION: Dental caries. No osseous erosions. Soft tissue swelling and infiltration to the right of and inferior to the mandible . Report Dictated on Workstation: [id number] Final Dictating Physician: DO MEJIA ALFRED Signed Date and Time: 01/12/2018 3:26 am Signed by: DO MEJIA ALFRED Transcribed Date and Time: 01/12/2018 3:28 Normal [facility] Add on test from HISon 01-12 Add on test from HIS Accepted Normal [facility] Comment on above: Result Comment: Spec imen available & acceptable for analysis. Performed By: #### A DDON ####[place] [address] [facility] [place] [address] Basic Metabolic Panelon 12-25 Anion gap 3 molar conc 9 Normal [facility] Comment on above: Performed By: #### H EMDF, BMP3, QWAL ####[place] [address] [facility] [place] [address] Calcium mass conc 9.2 mg/dL Normal 8.4-10.4 [facility] Comment on above: Performed By: #### H EMDF, BMP3, QWAL ####[place] [address] [facility] [place] [address] CO2 molar conc 25 mmol/L Normal 22-30 [facility] Comment on above: Performed By: #### H EMDF, BMP3, QWAL ####[place] [address] [place] [address] Glucose mass conc 100 mg/dL Normal 70-100 [facility] Comment on above: Performed By: #### H EMDF, BMP3, QWAL ####[place] [address] [facility] [place] [address] Urea nitrogen mass conc 12 mg/dL Normal 7-20 [facility] Comment on above: Performed By: #### H EMDF, BMP3, QWAL ####[place] [address] [place] [facility] [place] [address] Creatinine mass conc 0.67 mg/dL Normal 0.52-1.25 [facility] Comment on above: Performed By: #### H MINERVA WILSON3, QWAL ####[facility] Center[facility] [place] [address] [place] [address] GFR/1.73 sq M predicted among blacks MDRD vol rate/area (S/P/Bld) mL/min/{1.73_m2} Normal >60 [facility] Comment on above: Performed By: #### H MINERVA WILSON3, QWAL ####[employer] [place] [address] [place] [address] GFR/1.73 sq M predicted among non-blacks MDRD vol rate/area (S/P/Bld) mL/min/{1.73_m2} Normal >60 [facility] Comment on above: Result Comment: Sour ce- MDRD equation with creatinine calibration to IDMS(NKDEP) eGFR not recommended for drug dose adjustment Performed By: #### H MINERVA WILSON3, QWAL ####[facility] Center[facility] [place] [address] [place] [address] Chloride molar conc 104 mmol/L Normal 98-107 [facility] Comment on above: Performed By: #### H MINERVA WILSON3, QWAL ####[facility] [address] [place] [address] Potassium molar conc 4.1 mmol/L Normal 3.5-5.1 [facility] Comment on above: Performed By: #### H MINERVA WILSON3, QWAL ####[facility] [address] [address] Sodium molar conc 139 mmol/L Normal 137-145 [facility] Comment on above: Performed By: #### H MINERVA WILSON3, QWAL ####[facility] [address] [address] ED Provider Noteon 8 Protein mass conc WENDIEB DUGLAS Gupta GENCY dEPARTMENT eNCOUnterPt Name: Jerrica HernandezMRN: [id number] 1995Date of evaluation: 01/11/2018Provider: Octavio SOMMER was seen with and under the supervision of Dr. Poole COMPLAINTChief ComplaintPatient presents with? Dental PainHISTORY OF PRESENT ILLNESS(Location/Symptom, Timing/Onset, Context/Setting, Quality, Duration, ModifyingFactors, Severity) Note limiting factors.Raad Hernandez is a 22 y.o. female who presents to the emergency departmentWith a chief complaint of right-sided facial swelling that started earliertoday. Patient had a problem with a tooth in the lower aspect of her RIGHT jawand she went into dental services for it. Patient has von Willebrand disease andis on multiple medications for that. Patient states that she was concerned abouthaving the tooth pulled given the von Willebrand's. Patient was discharged homeon amoxicillin but has had continued swelling worse over the last 24 hours.Patient states this is 10 out of 10 painful in her lower RIGHT jaw withoutradiation states that she has been taking the antibiotics without fail andwithout relief. She notes that speaking or motion of her mouth aggravates herpain she notes no alleviating factors states pain is burning and worsening.Nursing Notes were reviewed.REVIEW OF SYSTEMS(2+ for level 4; 10+ for level 5)Review of SystemsConstitutional: Negative for diaphoresis and fever.HENT: Positive for dental problem and facial swelling. Negative for congestion,ear pain, mouth sores, postnasal drip, sore throat, trouble swallowing and voicechange.Eyes: Negative for discharge.Respiratory: Negative for cough, shortness of breath, wheezing and stridor.Cardiovascular: Negative for chest pain, palpitations and leg swelling.Gastrointestinal: Negative for abdominal pain, constipation, diarrhea, nauseaand vomiting.Genitourinary: Negative for dysuria and hematuria.Musculoskeletal: Negative for gait problem and neck pain.Skin: Negative for color change.Neurological: Negative for light-headedness and headaches.Psychiatric/Behav ioral: Negative for behavioral problems, confusion and sleepdisturbance.PAST MEDICAL HISTORYPast Medical History:Diagnosis Date? Disease of blood and blood forming organ? ? Vesicoureteral reflux? Von Willebrand disease (HCC)SURGICAL HISTORYPast Surgical History:Procedure Laterality Date? SECTION? KIDNEY SURGERY? TONSILLECTOMYCURRENT MEDICATIONSPrevious Medications FERROUS SULFATE 325 (65 FE) MG TABLET Take 325 mg by mouth 2 times daily METHYLERGONOVINE (METHERGINE) 0.2 MG TABLET Take 1 tablet by mouth 3 timesdaily VIT-FE FUMARATE-FA ( VITAMINS PLUS) 27-1 MG TABS TABLET Take1 tablet by mouth daily PROPRANOLOL (INDERAL LA) 60 MG EXTENDED RELEASE CAPSULE Take 1 capsule bymouth dailyALLERGIESAspirin; Ibuprofen; Nsaids; and Vicodin [hydrocodone-acetaminophen] FAMILY HISTORYFamily HistoryProblem Relation Age of Onset? Mult Sclerosis Mother? High Blood Pressure MotherSOCIAL HISTORYSocial HistorySocial History? Marital status: Spouse name: N/A? Number of children: N/A? Years of education: N/ASocial History Main Topics? Smoking status: Current Every Day Smoker Packs/day: 0.50 Types: Cigarettes Last attempt to quit: 09/2015? Smokeless tobacco: Never Used? Alcohol use No? Drug use: No Comment: very little caffeine? Sexual activity: Yes Partners: MaleOther Topics Concern? NoneSocial History Narrative? NoneSCREENINGSPHYSICAL EXAM(up to 7 for level 4, 8 or more for level 5)ED Triage Vitals [01/11/18 2225]BP Temp Temp Source Pulse Resp SpO2 Height Kwjxlo664/83 98.2 ?F (36.8 ?C) Temporal 114 18 100 % -- --Physical ExamConstitutional: She is oriented to person, place, and time. She appearswell-developed and well-nourished.HENT:Head: Normocephalic and atraumatic.Right Ear: Hearing, tympanic membrane, external ear and ear canal normal.Left Ear: Hearing, tympanic membrane, external ear and ear canal normal.Nose: No rhinorrhea. No epistaxis.Mouth/Throat: Mucous membranes are not pale and not dry. Abnormal dentition. Nooropharyngeal exudate, posterior oropharyngeal edema, posterior oropharyngealerythema or tonsillar abscesses.Tooth 28 is fractured on the mesial labile aspect with exposure of the nervepulp. There is moderate nonfluctuant swelling below this tooth near the angle ofthe jaw without overlying erythema. Airway patent.Eyes: Pupils are equal, round, and reactive to light. Conjunctivae are normal.Neck: Normal range of motion. Neck supple. No tracheal deviation present.Cardiovascular: Normal rate and regular rhythm.Pulmonary/Chest: No respiratory distress.Musculoskeletal: Normal range of motion.Neurological: She is alert and oriented to person, place, and time.Skin: Skin is warm and dry.Psychiatric: She has a normal mood and affect. Judgment and thought contentnormal.DIAGNOSTIC RESULTSEKG (Per Emergency Physician):RADIOLOGY (Per Emergency Physician):Interpretation per the Radiologist below, if available at the time of this note:No results found.ED BEDSIDE ULTRASOUND:Performed by ED Physician - noneLABS:Labs ReviewedCBC WITH AUTO DIFFERENTIAL - Abnormal; Notable for the following: Result Value Lymphocyte % 15.6 (*) Absolute Neut # 7.5 (*) Absolute [place] # 0.9 (*) All other components within normal limits Narrative: Test Performed by [facility], [address] [place] [id number] METABOLIC PANEL Narrative: Test Performed by [facility], [address] [place] [id number] ON LAB TEST Narrative: Test Performed by [facility], [address] [place] [id number], SERUM, QUALITATIVE Narrative: [facility], [address] [place] [id number] other labs were within normal range or not returned as of this dictation.EMERGENCY DEPARTMENT COURSE and DIFFERENTIAL DIAGNOSIS/MDM:Vitals:Vitals : 01/11/18 2225BP: 137/83Pulse: 114Resp: 18Temp: 98.2 ?F (36.8 ?C)TempSrc: TemporalSpO2: 100%Medicationsampicillin-s ulbactam(UNASYN) 1.5gm IVPB 100ml add-vantage NS (0 g IntravenousStopped 01/12/18 0155)morphine (PF) injection 4 mg (4 mg Intravenous Given 01/12/18 0106)ondansetron (ZOFRAN) injection 4 mg (4 mg Intravenous Given 01/12/18 010)iopamidol (ISOVUE-370) 76 % injection 75 mL (75 mLs Intravenous Given )MDM.My attending attempted to daniele this abscess but was unsuccessful given patientparticipation and no real return of pus. Basic labs were drawn and there is nosign of leukocytosis. Patient is having maxillofacial CAT scan and we awaitresults. Patient care transitioned to my attending at shift change.REVAL:CRITICAL CARE TIMETotal Critical Care time was 0 minutes, excluding separately reportableprocedures.There was a high probability of clinically significant/life threateningdeterioration in the patient's condition which required my urgent intervention.CONSULTS:NoneP ROCEDURES:Unless otherwise noted below, noneProceduresFINAL IMPRESSION1. Dental abscessDISPOSITION/PLANDISP OSITIONPATIENT REFERRED TO:No follow-up provider specified.DISCHARGE MEDICATIONS:New Prescriptions No medications on file(Please note: Portions of this note were completed with a voice recognitionprogram. Efforts were made to edit the dictations but occasionally words andphrases are mis-transcribed.)Form [id number] REDDY (electronically signed)Emergency Medicine ProviderChaCAROLYNN Moser01/12/18 0250 Normal [facility] Hemogram w/ Autodiffon 01-12 Abs Baso Cnt 0.0 10*3/uL Normal 0.0-0.2 [facility] Comment on above: Performed By: #### H EMDF, BMP3, QWAL ####[facility] [place] [address] Abs Neutrophile Cnt 7.5 10*3/uL High 1.8-7.0 [facility] Comment on above: Performed By: #### H EMDF, BMP3, QWAL ####[facility] [place] [address] Basophils/100 WBC Auto (Bld) 0.4 % Normal 0.0-2.0 [facility] Comment on above: Performed By: #### H EMDF, BMP3, QWAL ####[facility] [place] [address] Eosinophils Auto #/vol (Bld) 0.3 10*3/uL Normal 0.0-0.5 [facility] Comment on above: Performed By: #### H EMDF, BMP3, QWAL ####[facility] [place] [address] Eosinophils/100 WBC Auto (Bld) 2.6 % Normal 1.0-6.0 [facility] Comment on above: Performed By: #### H EMDF, BMP3, QWAL ####[place] [address] [place] [address] Erythrocyte distribution width Auto Ratio (RBC) 13.7 % Normal 11.5-14.5 [facility] Comment on above: Performed By: #### H EMDF, BMP3, QWAL ####[place] [address] [place] [address] Granulocytes/100 WBC (Bld) 72.5 % Normal 40.0-80.0 [facility] Comment on above: Performed By: #### H EMDF, BMP3, QWAL ####[place] [address] [place] [address] Hematocrit Auto Volume Fraction (Bld) 42.2 % Normal 35.0-47.0 [facility] Comment on above: Performed By: #### H EMDF, BMP3, QWAL ####[place] [address] [place] [address] Hemoglobin mass conc (Bld) 14.3 g/dL Normal 11.7-16.0 [facility] Comment on above: Performed By: #### H EMDF, BMP3, QWAL ####[place] [address] [place] [address] Lymphocytes Auto #/vol (Bld) 1.6 10*3/uL Normal 1.0-4.3 [facility] Comment on above: Performed By: #### H EMDF, BMP3, QWAL ####[place] [address] [place] [address] Lymphocytes/100 WBC Auto (Bld) 15.6 % Low 20.0-40.0 [facility] Comment on above: Performed By: #### H EMDF, BMP3, QWAL ####[place] [address] [place] [address] MCH Auto Entitic mass (RBC) 29.8 pg Normal 26.0-34.0 [facility] Comment on above: Performed By: #### H EMDF, BMP3, QWAL ####[place] [address] [place] [address] MCHC Auto mass conc (RBC) 34.0 % Normal 32.0-36.0 [facility] Comment on above: Performed By: #### H EMDF, BMP3, QWAL ####[place] [address] [place] [address] MCV Auto Entitic volume (RBC) 87.5 fL Normal 79.0-98.0 [facility] Comment on above: Performed By: #### H EMDF, BMP3, QWAL ####[place] [address] [place] [address] Monocytes Auto #/vol (Bld) 0.9 10*3/uL High 0.0-0.8 [facility] Comment on above: Performed By: #### H EMDF, BMP3, QWAL ####[address] [place] [address] Monocytes/100 WBC Auto (Bld) 8.9 % Normal 2.0-10.0 [facility] Comment on above: Performed By: #### H EMDF, BMP3, QWAL ####[address] [place] [address] Platelet mean volume Auto Entitic volume (Bld) 9.1 fL Normal 7.4-10.4 [facility] Comment on above: Performed By: #### H EMDF, BMP3, QWAL ####[address] [place] [address] Platelets Auto #/vol (Bld) 206 10*3/uL Normal 140-440 [facility] Comment on above: Performed By: #### H EMDF, BMP3, QWAL ####[place] [address] [place] [address] RBC Auto #/vol (Bld) 4.82 10*6/uL Normal 3.80-5.20 [facility] Comment on above: Performed By: #### H EMDF, BMP3, QWAL ####[place] [address] [place] [address] WBC Auto #/vol (Bld) 10.4 10*3/uL Normal 3.6-10.7 [facility] Comment on above: Performed By: #### H EMDF, BMP3, QWAL ####[facility] [place] [address] hCG Qual Pregon 01-12-2018 hCG Qual Preg Negative Normal [facility] Comment on above: Result Comment: REF RANGE:Negative .... < 3Questionable Rpt 48-72 HrPositive ..... > 10 Performed By: #### H EMDF, BMP3, QWAL ####[facility] [place] [address] TOE AP/LAT/OBL RIGHTon 04-05 TOE AP/LAT/OBL RIGHT Performed at [facility] APPROVED BY: Demetrio Lawton MD EXAM TITLE: TOE AP/LAT/OBL RIGHT DATE: 04/05/2017 17:49 COMPARISON: None. CLINICAL INDICATION/HISTORY: Injury, pain and bruising of the right second toe TECHNIQUE: AP, lateral and oblique views of the right second toe FINDINGS:As seen only on the lateral view, there appears to be a small fracture involving the volar base of the second middle phalanx. Correlate to the patient's region of pain. No other suspected fracture is identified. No dislocation, bone destruction or significant arthritic change. No bony erosion. IMPRESSION: There appears to be a small fracture along the volar base of the second middle phalanx as seen on the lateral view only. Normal [facility] Factor VIII Assayon 02-26-20 Factor VIII Interp See below Normal [facility] Comment on above: Performed By: #### F VIII ####[address] [address] Interp. by: See below Normal [facility] Comment on above: Result Comment: Ale Ritter M.D., PathologistNormal factor VIII activity. Performed By: #### F VIII ####[address] [address] von Willebrand Agon 02-26-20 17 von Willebrand Ag SEE BELOW Normal [facility] Comment on above: Result Comment: von Willebrand Ag 68 50-173 %Performing Laboratory:[facility] [place] [address] Performed By: #### V WAGX ####[address] [place] [address] Factor VIII Assayon 02-25-20 17 Factor VIII Assay 94.3 %Activity Normal 50.0-150.0 [facility] Comment on above: Performed By: #### F VIII ####[address] [address] Oncology Hemogram/Diffon Basophils Auto #/vol (Bld) 0.03 thou/cmm Normal 0.00-0.08 [facility] Comment on above: Result Comment: Test ing performed at: [facility], [address] [place] [address] Performed By: #### O CBCD ####[address] [address] Basophils/100 WBC Auto (Bld) 0.3 % Normal [facility] Comment on above: Performed By: #### O CBCD ####[address] [address] Eosinophils 0.24 thou/cmm Normal 0.00-0.36 [facility] Comment on above: Performed By: #### O CBCD ####[address] [address] Eosinophils/100 leukocytes 2.7 % Normal [facility] Comment on above: Performed By: #### O CBCD ####[address] [address] Erythrocyte distribution width Auto Ratio (RBC) 13.8 % Normal 11.8-14.5 [facility] Comment on above: Performed By: #### O CBCD ####[address] [address] Erythrocytes (RBC) 5.10 mil/cmm High 3.79-4.93 [facility] Comment on above: Performed By: #### O CBCD ####[address] [address] Hematocrit (HCT) 42.2 % Normal 34.7-43.3 [facility] Comment on above: Performed By: #### O CBCD ####[address] [address] Hemoglobin mass conc (Bld) 14.1 g/dL Normal 11.7-14.7 [facility] Comment on above: Performed By: #### O CBCD ####[facility] [place], [place] [address] Lymphocytes 2.72 thou/cmm Normal 0.68-2.93 [facility] Comment on above: Performed By: #### O CBCD ####[address] [address] Lymphocytes/100 leukocytes 30.2 % Normal [facility] Comment on above: Performed By: #### O CBCD ####[place] [address] MCH 27.6 pg Normal 27.4-32.8 [facility] Comment on above: Performed By: #### O CBCD ####[place] [address] MCHC mass conc (RBC) 33.4 % Normal 31.9-35.6 [facility] Comment on above: Performed By: #### O CBCD ####[place] [address] MCV 82.7 fL Normal 82.1-97.4 [facility] Comment on above: Performed By: #### O CBCD ####[address] [address] Monocytes 0.79 thou/cmm Normal 0.19-0.80 [facility] Comment on above: Performed By: #### O CBCD ####[place] [address] Monocytes/100 leukocytes 8.8 % Normal [facility] Comment on above: Performed By: #### O CBCD ####[place] [address] Platelet mean volume (PMV) 10.8 fL Normal 8.8-12.1 [facility] Comment on above: Performed By: #### O CBCD ####[place] [address] Platelets 259 thou/cmm Normal 150-370 [facility] Comment on above: Performed By: #### O CBCD ####[facility] [place], [place] [address] Seg Neutrophil 58.0 % Normal [facility] Comment on above: Performed By: #### O CBCD ####[facility] [place], [place] [address] Seg. Neut.# 5.22 thou/cmm Normal 1.35-7.21 [facility] Comment on above: Performed By: #### O CBCD ####[facility] [place], [place] [address] WBC (Leukocytes) 9.0 thou/cmm Normal 4.4-9.7 [facility] Comment on above: Performed By: #### O CBCD ####[address] [address] Vital Signs Date Time Vital Sign Value Performing Clinician Facility 08-31-2024 18:49-0400 Body temperature 98.7 [degF] Dr. Nunu Cortez MD Work Phone: [facility] 08-31-2024 18:49-0400 Diastolic blood pressure 73 mm[Hg] Dr. Nunu Cortez MD Work Phone: [facility] 08-31-2024 18:49-0400 Heart rate 84 /min Dr. Nunu Cortez MD Work Phone: [facility] 08-31-2024 18:49-0400 Respiratory rate 16 /min Dr. Nunu Cortez MD Work Phone: [facility] 08-31-2024 18:49-0400 SaO2% (BldA) [Mass fraction] 97 % Dr. Nunu Cortez MD Work Phone: [facility] 08-31-2024 18:49-0400 Systolic blood pressure 117 mm[Hg] Dr. Nunu Cortez MD Work Phone: [facility] 08-31-2024 13:36-0400 Body height 157.[address] Nunu Cortez MD Work Phone: [facility] 08-31-2024 13:36-0400 Body mass index (BMI) [Ratio] 31.8 kg/m2 Dr. Nunu Cortez MD Work Phone: [facility] 08-31-2024 13:36-0400 Body weight 78.[address] Nunu Cortez MD Work Phone: [facility] 05-31-2024 13:51-0500 Diastolic blood pressure 59 mm[Hg] Dr. Nunu Cortez MD Work Phone: [facility] 05-31-2024 13:51-0500 Systolic blood pressure 107 mm[Hg] Dr. Nunu Cortez MD Work Phone: [facility] 05-31-2024 13:00-0500 Heart rate 72 /min Dr. Nunu Cortez MD Work Phone: [facility] 05-31-2024 13:00-0500 Respiratory rate 18 /min Dr. Nunu Cortez MD Work Phone: [facility] 05-31-2024 13:00-0500 SaO2% (BldA) [Mass fraction] 100 % Dr. Nunu Cortez MD Work Phone: [facility] 05-31-2024 09:04-0500 Body mass index (BMI) [Ratio] 30.2 kg/m2 Dr. Nunu Cortez MD Work Phone: [facility] 05-31-2024 09:04-0500 Body temperature 98.9 [degF] Dr. Nunu Cortez MD Work Phone: [facility] 05-31-2024 09:04-0500 Body weight 75.[address] Nunu Cortez MD Work Phone: [facility] 09-15-2023 10:49-0400 Body height 157.5 cm Rebecca Lorenzo PA-C Work Phone: [employer] 09-15-2023 10:49-0400 Body mass index (BMI) [Ratio] 29.45 kg/m2 Rebecca Bj PA-C Work Phone: [facility] 09-15-2023 10:49-0400 Body temperature 97.81 [degF] Rebecca Bj PA-C Work Phone: [facility] 09-15-2023 10:49-0400 Body weight 73.03 kg Rebecca Bj PA-C Work Phone: [facility] 09-15-2023 10:49-0400 Diastolic blood pressure 59 mm[Hg] Rebecca Bj PA-C Work Phone: [facility] 09-15-2023 10:49-0400 Heart rate 107 /min Rebecca Bj PA-C Work Phone: [facility] 09-15-2023 10:49-0400 Systolic blood pressure 102 mm[Hg] Rebecca Bj PA-C Work Phone: [facility] 09-04-2023 09:31-0400 Body temperature 98.8 [degF] Melvin Posey MD Work Phone: [facility] 09-04-2023 09:31-0400 Diastolic blood pressure 80 mm[Hg] Melvin Posey MD Work Phone: [facility] 09-04-2023 09:31-0400 Heart rate 90 /min Melvin Posey MD Work Phone: [facility] 09-04-2023 09:31-0400 Respiratory rate 14 /min Melvin Posey MD Work Phone: [facility] 09-04-2023 09:31-0400 SaO2% (BldA) [Mass fraction] 96 % Melvin Posey MD Work Phone: [facility] 09-04-2023 09:31-0400 Systolic blood pressure 117 mm[Hg] Melvin Posey MD Work Phone: [facility] 09-03-2023 14:32-0400 Body height 157.5 cm Melvin Posey MD Work Phone: [facility] 09-03-2023 14:32-0400 Body mass index (BMI) [Ratio] 28.53 kg/m2 Melvin Posey MD Work Phone: [facility] 09-03-2023 14:32-0400 Body weight 70.76 kg Melvin Posey MD Work Phone: [facility] 08-02-2023 11:17-0400 Body height 156.2 cm Bakari Silva MD Work Phone: [facility] 08-02-2023 11:17-0400 Body temperature 97.2 [degF] Bakari Silva MD Work Phone: [facility] 08-02-2023 11:17-0400 Body weight 69.85 kg Bakari Silva MD Work Phone: [facility] 08-02-2023 11:17-0400 Diastolic blood pressure 72 mm[Hg] Bakari Silva MD Work Phone: [facility] 08-02-2023 11:17-0400 Heart rate 72 /min Bakari Silva MD Work Phone: [facility] 08-02-2023 11:17-0400 Respiratory rate 16 /min Bakari Silva MD Work Phone: [facility] 08-02-2023 11:17-0400 SaO2% (BldA) [Mass fraction] 100 % Bakari Silva MD Work Phone: [facility] 08-02-2023 11:17-0400 Systolic blood pressure 112 mm[Hg] Bakari Silva MD Work Phone: [facility] 07-05-2023 12:59-0400 Body height 157.5 cm Melvin Posey MD Work Phone: [facility] 07-05-2023 12:59-0400 Body mass index (BMI) [Ratio] 27.62 kg/m2 Melvin Posey MD Work Phone: [facility] 07-05-2023 12:59-0400 Body temperature 98.49 [degF] Melvin Posey MD Work Phone: [facility] 07-05-2023 12:59-0400 Body weight 68.49 kg Melvin Posey MD Work Phone: [facility] 07-05-2023 12:59-0400 Diastolic blood pressure 75 mm[Hg] Melvin Posey MD Work Phone: [facility] 07-05-2023 12:59-0400 Heart rate 116 /min Melvin Posey MD Work Phone: [facility] 07-05-2023 12:59-0400 Systolic blood pressure 107 mm[Hg] Melvin Posey MD Work Phone: [facility] 06-25-2023 00:02-0500 Diastolic blood pressure 58 mm[Hg] Jeff Purvis MD Work Phone: [facility] 06-25-2023 00:02-0500 Heart rate 106 /min Jeff Purvis MD Work Phone: [facility] 06-25-2023 00:02-0500 SaO2% (BldA) [Mass fraction] 97 % Jeff Purvis MD Work Phone: [facility] 06-25-2023 00:02-0500 Systolic blood pressure 106 mm[Hg] Jeff Purvis MD Work Phone: [facility] 06-24-2023 21:28-0500 Body temperature 98.49 [degF] Jeff Purvis MD Work Phone: [facility] 06-24-2023 21:28-0500 Respiratory rate 18 /min Jeff Purvis MD Work Phone: [facility] 06-23-2023 09:55-0500 Body height 160 cm [place] [employer] Work Phone: [facility] 06-23-2023 09:55-0500 Body mass index (BMI) [Ratio] 26.58 kg/m2 [place] [employer] Work Phone: [facility] 06-23-2023 09:55-0500 Body weight 68.04 kg [place] Scotter [employer]IV[employer] INVESTIGATOR - CHILD DAY CARE TEACHER Work Phone: [facility] 06-16-2023 13:54-0500 Body temperature 97.4 [degF] [facility] 06-16-2023 13:54-0500 Diastolic blood pressure 65 mm[Hg] [facility] 06-16-2023 13:54-0500 Heart rate 89 /min [facility] 06-16-2023 13:54-0500 Respiratory rate 18 /min [facility] 06-16-2023 13:54-0500 SaO2% (BldA) [Mass fraction] 100 % [facility] 06-16-2023 13:54-0500 Systolic blood pressure 115 mm[Hg] [facility] 06-16-2023 11:04-0500 Body height 154.94 cm [facility] 06-16-2023 11:04-0500 Body mass index (BMI) [Ratio] 28.2 kg/m2 [facility] 06-16-2023 11:04-0500 Body weight 67.76 kg [facility] 05-26-2023 09:57-0500 Body height 154.9 cm [place] Tylerer [employer]IV[employer]S INVESTIGATOR - CHILD DAY CARE TEACHER Work Phone: [facility] 05-26-2023 09:57-0500 Body mass index (BMI) [Ratio] 28 kg/m2 [facility] [employer] INVESTIGATOR - CHILD DAY CARE TEACHER Work Phone: [facility] 05-26-2023 09:57-0500 Body weight 67.22 kg [place] Forester [employer]IVIL [employer]S INVESTIGATOR - CHILD DAY CARE TEACHER Work Phone: [facility] 05-26-2023 09:57-0500 Diastolic blood pressure 73 mm[Hg] [place] Forester [employer]IVIL [employer] INVESTIGATOR - CHILD DAY CARE TEACHER Work Phone: [facility] 05-26-2023 09:57-0500 Heart rate 73 /min [place] Tylerer [employer]IVIL [employer]S INVESTIGATOR - CHILD DAY CARE TEACHER Work Phone: [facility] 05-26-2023 09:57-0500 Systolic blood pressure 104 mm[Hg] [place] Tylerer [employer]IV[employer] INVESTIGATOR - CHILD DAY CARE TEACHER Work Phone: [facility] 03-14-2023 16:19-0500 Diastolic blood pressure 64 mm[Hg] [facility] 03-14-2023 16:19-0500 Heart rate 86 /min [facility] 03-14-2023 16:19-0500 Respiratory rate 16 /min [facility] 03-14-2023 16:19-0500 SaO2% (BldA) [Mass fraction] 99 % [facility] 03-14-2023 16:19-0500 Systolic blood pressure 116 mm[Hg] [facility] 03-14-2023 11:55-0500 Body mass index (BMI) [Ratio] 26.6 kg/m2 [facility] 03-14-2023 11:55-0500 Body temperature 97.5 [degF] [facility] 03-14-2023 11:55-0500 Body weight 68.22 kg [facility] 09-23-2022 10:56-0400 Body temperature 97 [degF] [facility] 09-23-2022 10:56-0400 Body weight 73.85 kg [facility] 09-23-2022 10:56-0400 Diastolic blood pressure 71 mm[Hg] [facility] 09-23-2022 10:56-0400 Heart rate 121 /min [facility] 09-23-2022 10:56-0400 Respiratory rate 18 /min [facility] 09-23-2022 10:56-0400 Systolic blood pressure 126 mm[Hg] [facility] 09-22-2022 11:26-0400 Diastolic blood pressure 82 mm[Hg] Lyubov Begum MD Work Phone: [facility] 09-22-2022 11:26-0400 Heart rate 89 /min Lyubov Begum MD Work Phone: [facility] 09-22-2022 11:26-0400 Respiratory rate 20 /min Lyubov Begum MD Work Phone: [facility] 09-22-2022 11:26-0400 SaO2% (BldA) [Mass fraction] 100 % Lyubov Begum MD Work Phone: [facility] 09-22-2022 11:26-0400 Systolic blood pressure 121 mm[Hg] Lyubov Begum MD Work Phone: [facility] 09-22-2022 11:01-0400 Body temperature 97.3 [degF] Lyubov Begum MD Work Phone: [facility] 09-22-2022 07:39-0400 Body height 157.5 cm Lyubov Begum MD Work Phone: [facility] 09-22-2022 07:39-0400 Body weight 72.58 kg Lyubov Begum MD Work Phone: [facility] 08-24-2022 10:53-0400 Body height 157.5 cm Bakari Silva MD Work Phone: [facility] 08-24-2022 10:53-0400 Body temperature 98.8 [degF] Bakari Silva MD Work Phone: [facility] 08-24-2022 10:53-0400 Body weight 76.66 kg Bakari Silva MD Work Phone: [facility] 08-24-2022 10:53-0400 Diastolic blood pressure 75 mm[Hg] Bakari Silva MD Work Phone: [facility] 08-24-2022 10:53-0400 Heart rate 93 /min Bakari Silva MD Work Phone: [facility] 08-24-2022 10:53-0400 SaO2% (BldA) [Mass fraction] 99 % Bakari Silva MD Work Phone: [facility] 08-24-2022 10:53-0400 Systolic blood pressure 112 mm[Hg] Bakari Silva MD Work Phone: [facility] 07-06-2022 17:50-0400 Diastolic blood pressure 68 mm[Hg] Jay Dave MD Work Phone: [facility] 07-06-2022 17:50-0400 Heart rate 88 /min Jay Dave MD Work Phone: [employer] 07-06-2022 17:50-0400 Respiratory rate 14 /min Jay Dave MD Work Phone: [facility] 07-06-2022 17:50-0400 SaO2% (BldA) [Mass fraction] 100 % Jay Dave MD Work Phone: [facility] 07-06-2022 17:50-0400 Systolic blood pressure 104 mm[Hg] Jay Dave MD Work Phone: [facility] 07-06-2022 14:18-0400 Body temperature 99 [degF] Jay Dave MD Work Phone: [facility] 06-23-2022 11:17-0500 Body height 158.8 cm Jeff Purvis MD Work Phone: [employer] 06-23-2022 11:17-0500 Body mass index (BMI) [Ratio] 31.23 kg/m2 Jeff Purvis MD Work Phone: [employer] 06-23-2022 11:17-0500 Body temperature 96.8 [degF] Jeff Purvis MD Work Phone: [employer] 06-23-2022 11:17-0500 Body weight 78.7 kg Jeff Purvis MD Work Phone: [employer] 06-23-2022 11:17-0500 Diastolic blood pressure 73 mm[Hg] Jeff Purvis MD Work Phone: [employer] 06-23-2022 11:17-0500 Heart rate 90 /min Jeff Purvis MD Work Phone: [employer] 06-23-2022 11:17-0500 SaO2% (BldA) [Mass fraction] 100 % Jeff Purvis MD Work Phone: [employer] 06-23-2022 11:17-0500 Systolic blood pressure 116 mm[Hg] Jeff Purvis MD Work Phone: [employer] 06-02-2022 11:04-0500 Body height 157.5 cm Danyell Glenn PA-C Work Phone: [facility] 06-02-2022 11:04-0500 Body weight 74.84 kg Danyell Glenn PA-C Work Phone: [facility] 06-02-2022 11:04-0500 Diastolic blood pressure 78 mm[Hg] Danyell Glenn PA-C Work Phone: [facility] 06-02-2022 11:04-0500 Heart rate 104 /min Danyell Glenn PA-C Work Phone: [facility] 06-02-2022 11:04-0500 Systolic blood pressure 118 mm[Hg] Danyell Glenn PA-C Work Phone: [facility] Encounters Encounter Date Encounter Type Care Provider Facility Start: 10-23-2024 ambulatory [facility] Facility :[facility] Start: 10-20-2024 Encounter for other preprocedural examination [facility] Start: 09-26-2024 End: 09-26-2024 Telephone encounter Bakari Silva MD Work Phone: [facility] Start: 09-25-2024 End: 09-26-2024 ambulatory Bakari Silva MD Work Phone: [facility] Comment on above: GI Bleed Start: 09-20-2024 ambulatory Mayra Saeed ty:LEELA Start: 09-04-2024 End: 09-04-2024 ambulatory Mayra Reno Facility:[facility] Start: 09-01-2024 ambulatory MIKE HILL Facility:[facility] Start: 08-31-2024 End: 08-31-2024 Emergency department patient visit Dr. Nunu Cortez MD Work Phone: -Emergency Department Work Phone: Start: 08-30-2024 End: 08-30-2024 Telephone encounter Bakari Silva MD Work Phone: [facility] Start: 07-06-2024 End: 07-06-2024 Telephone encounter Esteban Sarmiento MD Work Phone: [facility] Comment on above: Appointment Start: 06-19-2024 End: 06-22-2024 Telephone encounter Bakari Silva MD Work Phone: [facility] Start: 06-19-2024 End: 06-19-2024 ambulatory BAKARI SILVA Facility:[facility] Start: 06-05-2024 End: 06-05-2024 [facility] Start: 06-05-2024 End: 06-05-2024 Patient encounter procedure [facility] Start: 05-31-2024 End: 05-31-2024 Emergency department patient visit Dr. Alonzo [place] -Emergency Department Work Phone: Start: 04-10-2024 End: 04-10-2024 Subsequent hospital visit by physician Izzy [facility] Ursula Work Phone: Radiology Comment on above: Acute cough [R05.1] Start: 04-10-2024 End: 04-10-2024 ambulatory NUNU Rafal [facility] Facility:[facility] Start: 12-17-2023 End: 12-17-2023 Telephone encounter Nunu Cortez MD Work Phone: [facility] Clinical Communication Comment on above: Appointment Start: 09-15-2023 End: 09-15-2023 ambulatory NUNU [facility] Start: 09-15-2023 End: 09-15-2023 Postop follow up visit related to original px Rebecca Lorenzo PA-C Work Phone: [facility] Advanced Laproscopic Surgery Comment on above: Encounter for postop erative care (Primary Dx) Start: 09-03-2023 End: 09-04-2023 Subsequent hospital visit by physician Melvin Posey MD Work Phone: [facility] Medical Surgical Unit MSU H5 Comment on above: Epigastric pain (Geri tray Dx); Von Willebrand disease (HCC) Start: 09-03-2023 End: 09-04-2023 Unknown MELVIN POSEY [facility] Start: 08-30-2023 End: 08-30-2023 ambulatory MELVIN POSEY [facility] Start: 08-27-2023 End: 08-27-2023 ambulatory Bakari Silva MD Work Phone: [facility] Hematology/Oncology Comment on above: Von Willebrand disea se Type I (Primary Dx); Encounter for preoperative assessment Start: 08-27-2023 End: 08-27-2023 Patient encounter status Bakari Silva MD Work Phone: [facility] Start: 08-27-2023 End: 08-27-2023 Telemedicine consultation with patient Bakari Silva MD Work Phone: [facility] Hematology/Oncology Start: 08-27-2023 Telephone encounter Bakari Silva MD Work Phone: [facility] General Hematology and Oncology Start: 08-18-2023 Admission to [facility] Rebecca Lorenzo PA-C Work Phone: [facility] Advanced Laproscopic Surgery Comment on above: Preop testing (Prima ry Dx) Start: 08-18-2023 ambulatory Rebecca kauffman PA-C Work Phone: [facility] Advanced Laproscopic Surgery Start: 08-18-2023 Patient encounter status Rebecca Lorenzo PA-C Work Phone: [facility] Work Phone: Start: 08-10-2023 ambulatory Bakari Silva MD Work Phone: [facility] General Hematology and Oncology Start: 08-10-2023 Patient encounter procedure Bakari Silva MD Work Phone: [facility] Hematology and Oncology Comment on above: Pre OP blood work Start: 08-10-2023 Patient encounter status Bakari Silva MD Work Phone: [facility] Start: 08-10-2023 Telephone encounter Melvin muniz MD Work Phone: [facility] Advanced Laproscopic Surgery Comment on above: Appointment Start: 08-03-2023 Telephone encounter Son ma MD Work Phone: [facility] General Surgery Comment on above: Results (MRI) Start: 08-02-2023 Telephone encounter Alyx Thorpe [facility] Advanced Laproscopic Surgery Comment on above: Question Start: 08-02-2023 End: 08-02-2023 ambulatory Bakari Silva MD Work Phone: [facility] Hematology and Oncology Comment on above: Von Willebrand disea se (HCC) (Primary Dx) Start: 08-02-2023 End: 08-02-2023 Patient encounter procedure Bakari Silva MD Work Phone: [facility] Start: 07-28-2023 End: 07-28-2023 Subsequent hospital visit by physician Son Rosario MD Work Phone: [facility] [address] MRI Comment on above: Postprandial epigast stewart pain; Elevated lipase; Pancreatic lesion Start: 07-28-2023 End: 07-28-[facility] Start: 07-19-[facility]23 ambulatory Bakari Silva MD Work Phone: [facility] Hematology/Oncology Comment on above: Gallbladder removal Start: 07-16-2023 End: 07-16-2023 Subsequent hospital visit by physician Rebecca Lorenzo PA-C Work Phone: [facility] Vascular Lab Comment on above: Postprandial epigast stewart pain Start: 07-16-2023 End: 07-16-2023 ambulatory REBECCA LORENZO [facility] Start: 07-07-2023 End: 07-07-2023 Office outpatient new 45 minutes Son Rosario MD Work Phone: [facility] General Surgery Comment on above: Postprandial epigast stewart pain; Elevated lipase; Pancreatic lesion Start: 07-07-2023 End: 07-07-2023 [facility] Start: 07-05-2023 End: 07-05-2023 Office outpatient new 30 minutes Melvin Posey MD Work Phone: [facility] Advanced Laproscopic Surgery Comment on above: Postprandial epigast stewart pain (Primary Dx); Elevated lipase; Pancreatic lesion; Weight loss Start: 07-05-2023 End: 07-05-2023 ambulatory MELVIN POSEY [facility] Start: 06-24-2023 End: 06-25-2023 Emergency department patient visit NUNU CORTEZ [facility] ED Comment on above: 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, 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, 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); Elevated lipase; Nausea and vomiting, unspecified vomiting type Start: 06-24-2023 Telephone encounter Melvin muniz MD Work Phone: [facility] Advanced Laproscopic Surgery Comment on above: Appointment Request (06/24/23 referral for Dx: Postprandial RUQ pain) Start: 06-23-2023 End: 06-23-2023 Subsequent hospital visit by physician Mario Fernando APRN - [employer] Work Phone: [facility] Nuclear Medicine Comment on above: Postprandial RUQ kati n Start: 06-23-2023 End: 06-23-2023 ambulatory [facility] Start: 06-18-2023 Telephone encounter Bakari Silva MD Work Phone: [facility] Hematology/Oncology Start: 06-16-2023 End: 06-16-2023 Emergency department patient visit [facility]Emergency Department Work Phone: Start: 06-08-2023 End: 06-08-2023 Subsequent hospital visit by physician Mario Fernando APRN - [employer] Work Phone: [facility] Nuclear Medicine Comment on above: Nausea and vomiting, unspecified vomiting type Start: 06-08-2023 End: 06-08-2023 ambulatory [facility] Start: 06-01-2023 Telephone encounter Mi Thorpe [facility] Gastroenterology Comment on above: Release of Informati on Start: 05-26-2023 End: 05-26-2023 Office outpatient new 45 minutes Mario Emmettnimo CIVIL RIGHTS INVESTIGATOR - [employer] Work Phone: [facility] Gastroenterology Comment on above: Nausea and vomiting, unspecified vomiting type (Primary Dx); Postprandial RUQ pain; Irritable bowel syndrome with both constipation and diarrhea; Unintentional weight loss Start: 04-22-2023 Telephone encounter Mario hodges CIVIL RIGHTS INVESTIGATOR - CHILD DAY CARE TEACHER Work Phone: [facility] Gastroenterology Comment on above: New Patient (New Pt appt scheduled for 05/26 at [facility] with Mignon Fernando. ) Start: 03-14-2023 End: 03-14-2023 Emergency department patient visit [facility]Emergency Department Work Phone: Start: 03-13-2023 ambulatory Jeanine Ring RN [facility] Clinical Communication Start: 03-13-2023 Patient encounter procedure Jeanine Ring RN [facility] Communication Start: 02-13-2023 ambulatory Alyssa Covington RN [facility] Communication Start: 02-13-2023 Patient encounter procedure Alyssa Covington RN [facility] Clinical Communication Start: 02-03-2023 ambulatory Bakari Silva MD Work Phone: [facility] Hematology/Oncology Comment on above: Future Dental Work Start: 01-25-2023 End: 01-25-2023 ambulatory MD NO PRIMARY CARE [facility] Start: 01-25-2023 Telephone encounter Morenita HERNANDEZ [facility] Clinical Communication Comment on above: Records Start: 12-07-2022 End: 12-07-2022 Subsequent hospital visit by physician Nunu Cortez MD Work Phone: [facility] MRI Comment on above: Canceled (Other: Eloise m/Resource Maintenance) Start: 12-07-2022 End: 12-07-2022 Subsequent hospital visit by physician Nunu Cortez MD Work Phone: [facility] MRI Comment on above: Anesthesia of skin; Paresthesia of skin Start: 11-26-2022 Transcribe Orders uNnu Cortez MD Work Phone: [facility] Scheduling Comment on above: Anesthesia of skin ( Primary Dx); Paresthesia of skin Start: 09-23-2022 End: 09-23-2022 ambulatory Chair 1 [facility] Hematology/Oncology Comment on above: Von Willebrand disea se (HCC) (Primary Dx); Encounter for preoperative assessment; Von Willebrand disease Type I Von Willebrand disea se Type I (Primary Dx) Start: 09-23-2022 End: 09-23-2022 Patient encounter procedure Bakari Silva MD Work Phone: [facility] Start: 09-23-2022 End: 09-23-2022 Patient encounter status Chair [place] [facility] Start: 09-22-2022 Telephone encounter Bakari Silva MD Work Phone: [facility] Hematology/Oncology Comment on above: Patient Update Start: 09-22-2022 End: 09-22-2022 Subsequent hospital visit by physician Lyubov Begum MD Work Phone: [facility] Comment on above: Bilious vomiting wit hout nausea [R11.14] Start: 09-04-2022 Preoperative state Xr Ursula Work Phone: [facility] Start: 09-04-2022 End: 09-04-2022 ambulatory Bakari Silva MD Work Phone: [facility] Hematology/Oncology Comment on above: Encounter for preope rative assessment; Von Willebrand disease Type I Start: 09-04-2022 End: 09-04-2022 Patient encounter status Bakari Silva MD Work Phone: [facility] Hematology/Oncology Start: 09-04-2022 End: 09-04-2022 Telemedicine consultation with patient Bakari Silva MD Work Phone: [facility] Start: 08-24-2022 Telephone encounter Bakrai Silva MD Work Phone: [facility] Hematology and Oncology Comment on above: Appointment; Orders Start: 08-24-2022 End: 08-24-2022 ambulatory Bakari Silva MD Work Phone: [facility] Hematology and Oncology Comment on above: Von Willebrand disea se Type I Start: 08-24-2022 End: 08-24-2022 Patient encounter procedure Bakari Silva MD Work Phone: [facility] Start: 08-05-2022 Telephone encounter Danyell Elizabeth PA-C Work Phone: [facility] [place] Comment on above: Orders; Patient Ques tion Start: 07-23-2022 E-mail encounter chelle lion caregiver Danyell Elizabeth PA-C Work Phone: [facility] Start: 07-23-2022 Follow-up encounter Danyell Elizabeth PA-C Work Phone: [facility] Comment on above: Follow up Start: 07-07-2022 End: 07-07-2022 Office outpatient visit 15 minutes Jeff Purvis MD Work Phone: [facility] Oncology Comment on above: Von Willebrand disea se (Primary Dx) Start: 07-06-2022 End: 07-06-2022 Subsequent hospital visit by physician 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 Purvis's office at [facility] regarding scheduling patient for EGD & colon after IV infusion of DDAVP for Von Willebrand. Dr. Purvis's office will call to coordinate schedules.) Start: 06-29-2022 Telephone encounter Danyell Elizabeth PA-C Work Phone: [facility] Comment on above: Orders OTHER Start: 06-25-2022 Refill Danyell lyles PA-C Work Phone: [facility] Comment on above: Refill Request Start: 06-23-2022 End: 06-23-2022 Office outpatient new 60 minutes Jeff Purvis MD Work Phone: [facility] Oncology Comment on above: Von Willebrand disea se (Primary Dx) Start: 06-10-2022 End: 06-10-2022 Subsequent hospital visit by physician [facility] [employer] [facility] Work Phone: Radiology Comment on above: Bilious vomiting wit h nausea [R11.14] Start: 06-08-2022 ambulatory Dnayell Baig rafal PERSON Work Phone: [facility] [place] Comment on above: New medicines Start: 06-02-2022 End: 06-02-2022 Patient encounter procedure Danyell Glenn PERSON [facility] [place] Comment on above: Bilious vomiting wit h nausea (Primary Dx); Generalized abdominal pain; Diarrhea, unspecified type; Rectal bleeding Start: 01-15-2020 End: 01-15-2020 Telephone encounter Dacia Mignon (Machine Designer Working Second Hand) Linnea Work Phone: [facility] Hematology/Oncology Comment on above: Trauma Start: 04-26-2018 Emergency department patient visit [facility] Start: 01-12-2018 Emergency department patient visit [facility] Start: 12-24-2017 Emergency department patient visit [facility] Start: 09-27-2017 Ambulatory MIKAYLA H REHMUS Facilit y:[facility] Start: 04-05-2017 End: 04-05-2017 Emergency department patient visit GORDON BANUELOS Facility:[facility] Start: 02-24-2017 End: 02-25-2017 Ambulatory DACIA YARBROUGH Facility:[facility] Start: 02-19-2017 Ambulatory MIKAYLA H REHMUS Facilit y:[facility] Procedures Date Procedure Procedure Detail Performing Clinician Start: 08-31-2024 Computed tomography of abdomen and pelvis with intravenous contrast Dr. Nunu Cortez MD Work Phone: Start: 08-31-[address] Nunu Cortez MD Work Phone: Start: 05-31-20[address] e detection Dr. Nunu Cortez MD Work Phone: Start: 05-31-[address] Nunu Cortez MD Work Phone: Start: 05-31-[address] Rosy Cortez MD Work Phone: Start: 05-31-2024 Computed tomography of abdomen and pelvis with intravenous contrast Dr. Nunu Cortez MD Work Phone: Start: 05-31-2024 End: 05-31-2024 Iadna-dna/rna gi pthgn multiplex probe tq 6-11 Dr. Nunu Cortez MD Work Phone: Start: 05-31-[address] Nunu Cortez MD Work Phone: Start: 05-31-2024 Measurement of renal function Dr. Nunu Cortez MD Work Phone: Comment on above: GFR Calc Start: 04-10-2024 Radiologic exam ches t 2 views Dmitry Galvan CIVIL RIGHTS INVESTIGATOR.CHILD DAY CARE TEACHER Work Phone: Start: 09-04-2023 Basic metabolic pane l calcium total Tawny Leija MD Work Phone: Start: 09-03-2023 End: 09-03-2023 Laparoscopy surg cholecystectomy Melvin Posey MD Work Phone: Start: 09-03-2023 Urine test visual color cmprsn meths Pushpa Capone CIVIL RIGHTS INVESTIGATOR - CHILD DAY CARE TEACHER Work Phone: Start: 07-16-2023 Dup-scan artl nirmala abdl/pel/scrot&/rpr orgn lmt Rebecca Lorenzo PA-C Work Phone: Start: 06-24-2023 Ct abdomen & pelvis w/contrast material Ayad Fonseca CIVIL RIGHTS INVESTIGATOR - CHILD DAY CARE TEACHER Work Phone: Start: 06-24-2023 Us abdominal real ti me w/image limited Ayad Fonseca CIVIL RIGHTS INVESTIGATOR - CHILD DAY CARE TEACHER Work Phone: Start: 06-24-2023 Urinalysis complete panel - Urine Ayad Fonseca CIVIL RIGHTS INVESTIGATOR - CHILD DAY CARE TEACHER Work Phone: Start: 06-24-2023 Urnls dip stick/tabl et rgnt auto w/o microscopy Ayad Fonseca CIVIL RIGHTS INVESTIGATOR - CHILD DAY CARE TEACHER Work Phone: Start: 06-24-2023 Comprehensive metabo lic panel Ayad Fonseca CIVIL RIGHTS INVESTIGATOR - [facility] Work Phone: Start: 06-23-2023 Hepatobil syst imag inc gb w/pharma intervenj Mario Fernando CIVIL RIGHTS INVESTIGATOR - [facility] Work Phone: Start: 06-08-2023 [facility]astric [facility]ying buzz [facility] Work [facility]: Start: 03-14-2023 Computed tomography of abdomen and pelvis with intravenous contrast Start: 12-07-2022 Mri brain brain stem w/o w/contrast material Nunu Cortez MD Work Phone: Start: 09-23-2022 Blood count complete auto&auto difrntl wbc Bakari Silva MD Work Phone: Start: 09-22-2022 Urine test visual color cmprsn meths Anthony Mitchell MD Work Phone: Start: 07-06-2022 Ct abdomen & pelvis w/o contrast material Jay Dave MD Work Phone: Start: 07-06-2022 Comprehensive metabo lic panel Jay Dave MD Work Phone: Start: 07-06-2022 Urinalysis complete panel - Urine Jay Dave MD Work Phone: Start: 07-06-2022 Urine test visual color cmprsn meths Jay Dave MD Work Phone: Start: 07-06-2022 Urnls dip stick/tabl et reagent auto microscopy Jay Dave MD Work Phone: Start: 06-10-2022 Us abdominal real ti me w/image limited Danyell Gann PA-C Work Phone: Start: 05-02-2012 H/O: surgery S/P T&A (statu s post tonsillectomy and adenoidectomy) Melvin Posey MD Work Phone: Plan of Treatment Date Care Activity Detail Author Start: 01-31-2071 RSV Immunization for Adults (1 - 1-dose 75+ series) RSV Immunization for Adults (1 - 1-dose 75+ series) [facility] Start: 2056 RSV Immunization aged 60 or older (1 - 1-dose 60+ series) RSV Immunization aged 60 or older (1 - 1-dose 60+ series) [facility] Start: 01-31-2046 Zoster Vaccines (1 of 2) Zoster Vaccines (1 of 2) [facility] Start: 05-11-2026 DTaP/Tdap/Td Vaccines (2 - Td or Tdap) DTaP/Tdap/Td Vaccines (2 - Td or Tdap) [facility] Start: 05-11-2026 Urine microalbumin profile DTaP,Tdap,Td Vaccine (2 - Td or Tdap) [facility] Start: 12-25-2024 Influenza vaccination Influenza Vaccine (Season Ended) [facility] Start: 06-19-2024 End: 09-18-2024 VON WILLEBRAND DX PANEL VON WILLEBRAND DX PANEL Lab Routine Von Willebrand disease (HCC) Expected: 06/19/2024, Expires: 09/18/2024 [facility] Work Phone: Comment on above: Expected: 06/19/2024, Expires: Start: 06-19-2024 End: 09-18-2024 VON WILLEBRAND DX PNL (LIMITED) [facility] Comment on above: Expected: 06/19/2024, Expires: Start: 05-31-2024 [facility] Start: 05-31-[address] [facility] Start: 12-26-2023 Covid-19 Vaccine ( season) Covid-19 Vaccine ( season) [facility] Start: 12-26-2023 Influenza vaccination Influenza Vaccine (#1) [facility] Start: 09-15-2023 End: 09-15-2023 Patient encounter procedure 09/15/2023 1:30 PM EDT Office Visit [facility] Advanced Laproscopic Surgery [address] [place] [address] [facility]roscopic [facility] Start: 09-03-2023 End: 09-03-2023 Admission to same day surgery center 09/03/2023 11:30 AM EDT - 09/03/2023 1:00 PM EDT Surgery [facility] MAIN [place] [address] [place] [id number] Melvin Posey MD [address] [facility] [address] [place], [place] [id number] LAPAROSCOPIC CHOLECYSTECTOMY POSSIBLE OPEN [40880 (CPT )] [facility] Comment on above: LAPAROSCOPIC CHOLECYSTECTOMY POSSIBLE OP EN [43983 (CPT )] Start: 09-03-2023 End: 09-03-2023 Anesthesia consultation 09/03/2023 11:30 AM EDT Anesthesia Event [facility] [address] [place] [id number] Nasima Honeycutt, CIVIL RIGHTS INVESTIGATOR - CHILD DAY CARE TEACHER [address] [place] [address] [facility] OR Start: 09-03-2023 End: 09-03-2023 Laparoscopy surg cholecystectomy LAPAROSCOPIC CHOLECYSTECTOMY Epigastric pain 09/03/2023 11:30 AM EDT [facility] Operating Room Start: 09-03-2023 Subsequent hospital visit by physician 09/03/2023 9:30 AM EDT Hospital Encounter [facility] MA[facility] OR [address] [place] [phone] Melvin Posey MD [address] [place] [phone] [facility] MA[facility] OR Start: 08-30-2023 End: 08-30-2023 Admission to establishment [facility] Pre-Admit Testing Start: 08-27-2023 End: 08-27-2023 ambulatory 08/27/2023 2:15 PM EDT Visit (SP) Office [facility] [address] [place], [place] [phone] Bakari Silva MD [address], [address] [place], [place] [id number] pre surgical, results labs [facility] Comment on above: pre surgical, results labs Start: 08-20-2023 End: 11-19-2023 CBC W Auto Differential panel - Blood COMPLETE BLOOD COUNT AND DIFFERENTIAL Lab STAT Von Willebrand disease (HCC) Encounter for preoperative assessment Expected: 08/20/2023, Expires: 11/19/2023 [facility] Comment on above: Expected: 08/20/2023, Expires: Start: 08-20-2023 End: 11-19-2023 VON WILLEBRAND DX PANEL VON WILLEBRAND DX PANEL Lab Routine Von Willebrand disease (HCC) Encounter for preoperative assessment Expected: 08/20/2023, Expires: 11/19/2023 [facility] Work Phone: Comment on above: Expected: 08/20/2023, Expires: Start: 08-18-2023 End: 08-17-2024 Hepatic function 2000 panel - Serum or Plasma Hepatic function panel Lab Routine Preop testing Expected: 08/18/2023 (Approximate), Expires: 08/17/2024 [facility] Work Phone: Comment on above: Expected: 08/18/2023 (Approximate), Expi res: 08/17/2024 Start: 08-04-2023 End: 08-04-2023 Patient encounter procedure 08/04/2023 11:00 AM EDT Office Visit [facility] [address] [place] [phone] Son Rosario MD [address] [place] [id number] [facility] Start: 08-02-2023 End: 11-01-2023 CBC W Auto Differential panel - Blood CBC + DIFF Lab STAT Von Willebrand disease (HCC) Expected: 08/02/2023, Expires: 11/01/2023 [facility] Work Phone: Comment on above: Expected: 08/02/2023, Expires: Start: 08-02-2023 End: 11-01-2023 VON WILLEBRAND DX PANEL VON WILLEBRAND DX PANEL Lab Routine Von Willebrand disease (HCC) Expected: 08/02/2023, Expires: 11/01/2023 [facility] Work Phone: Comment on above: Expected: 08/02/2023, Expires: Start: 07-28-2023 End: 07-28-2023 Patient encounter procedure 07/28/2023 2:00 PM EDT Appointment [facility] [address] [place] [phone] Son Rosario MD [address] [place] [address] [facility] [address] Start: 07-16-2023 End: 07-16-2023 Patient encounter procedure 07/16/2023 9:20 AM EDT Appointment [facility] Vascular Lab [address] [place] [phone] Rebecca Lorenzo PA-C [address] [place] [address] [facility] Start: 07-14-2023 End: 07-14-2023 Patient encounter procedure 07/14/2023 8:20 AM EDT Appointment [facility] Lab [address] [place] [phone] Rebecca Lorenzo PA-C [address] [address] [place] [address] [facility] Start: 07-07-2023 End: 07-06-2024 MR Abdomen WO and W contrast IV MR abdomen w and wo contrast Imaging Routine Postprandial epigastric pain Elevated lipase Pancreatic lesion Expected: 07/07/2023 (Approximate), Expires: 07/06/2024 [facility] Work Phone: Comment on above: Expected: 07/07/2023 (Approximate), Expi res: 07/06/2024 Start: 06-23-2023 End: 06-23-2023 Patient encounter procedure 06/23/2023 9:30 AM EST Appointment [facility] Nuclear Medicine [address] [place] [phone] Mario Fernando APRN - CNP [address] [place] [address] [facility] Nuclear Medicine Start: 06-16-2023 [facility] Start: 06-08-2023 End: 06-08-2023 Patient encounter procedure 06/08/2023 8:00 AM EST Appointment [facility] Nuclear Medicine [address] [place] [phone] Mario Fernando APRN - CHILD DAY CARE TEACHER [address] [facility] [facility] [address] [place] [address] [facility] Nuclear Medicine Start: 05-26-2023 End: 05-26-2024 NM Gallbladder Views W cholecystokinin and W radionuclide IV NM hepatobiliary scan with pharm agent w/cck Imaging Routine Postprandial RUQ pain Expected: 05/26/2023, Expires: 05/26/2024 [facility] Comment on above: Expected: 05/26/2023, Expires: Start: 05-26-2023 End: 05-26-2024 NM Stomach Views for gastric emptying solid phase W radionuclide PO NM gastric emptying solid Imaging Routine Nausea and vomiting, unspecified vomiting type Expected: 05/26/2023, Expires: 05/26/2024 [facility] Work Phone: Comment on above: Expected: 05/26/2023, Expires: 5 Start: 05-26-2023 End: 05-26-2023 Patient encounter procedure 05/26/2023 10:00 AM EST Office Visit [facility] [address] [place] [address] Mario Fernando, CIVIL RIGHTS INVESTIGATOR - CHILD DAY CARE TEACHER [address] [place] [address] [facility] Start: 04-26-2023 Behavioral Health Screening Behavioral Health Screening [facility] Start: 04-26-2023 Depression Assessment Depression Assessment [facility] Start: 03-14-2023 [facility] Start: 12-25-2022 Covid-19 Vaccine ( season) Covid-19 Vaccine ( season) [facility] Start: 12-25-2022 Influenza vaccination [facility] Start: 07-07-2022 End: 07-07-2022 Patient encounter procedure 07/07/2022 Office Visit Hematology and Oncology Jeff Purvis MD [address] [address] [facility] Start: 04-26-2022 DEPRESSION ASSESSMENT DEPRESSION ASSESSMENT [facility] Start: 11-20-2020 COVID-19 VACCINE (3 - Booster for Moderna series) COVID-19 VACCINE (3 - Booster for Moderna series) [facility] Start: 11-20-2020 COVID-19 VACCINE (3 - Moderna series) COVID-19 VACCINE (3 - Moderna series) [facility] Start: 12-26-2019 Influenza vaccination INFLUENZA (#1) [facility] Start: 01-31-2017 PAP TESTING PAP TESTING [facility] Start: 01-31-2017 Screening for malignant neoplasm of cervix [facility] Start: 01-31-2015 Hepatitis B Vaccine (1 of 3 - 19+ 3-dose series) Hepatitis B Vaccine (1 of 3 - 19+ 3-dose series) [facility] Start: 01-31-2015 Hepatitis B Vaccines (1 of 3 - 19+ 3-dose series) Hepatitis B Vaccines (1 of 3 - 19+ 3-dose series) [facility] Start: 01-31-2015 Urine microalbumin profile [facility] Start: 01-31-2014 Anxiety Screening Anxiety Screening [facility] Start: 01-31-2014 CHLAMYDIA SCREENING (18-24) CHLAMYDIA SCREENING (18-24) [facility] Start: 01-31-2014 Depression Screening Depression Screening [facility] Start: 01-31-2014 GC (GONORRHEA) SCREENING (18-24) GC (GONORRHEA) SCREENING (18-24) [facility] Start: 01-31-2014 HEPATITIS C SCREENING HEPATITIS C SCREENING [facility] Start: 01-31-2014 Hepatitis C screening Hepatitis C Screening [facility] Start: 01-31-2014 HIV SCREENING HIV SCREENING [facility] Start: 01-31-2014 HIV screening HIV Screening [facility] Start: 01-31-2010 PEDS TO ADULT TRANSITION ANNUAL ASSESSMENT PEDS TO ADULT TRANSITION ANNUAL ASSESSMENT [facility] Start: 01-31-2009 Varicella vaccination Varicella Vaccines (1 of 2 - 13+ 2-dose series) [facility] Start: 2008 Depression Screening Depression Screening [facility] Start: 2008 PEDS TO ADULT TRANSITION INITIAL DISCUSSION PEDS TO ADULT TRANSITION INITIAL DISCUSSION [facility] Start: 01-31-2007 HPV VACCINE (1 - 2-dose series) HPV VACCINE (1 - 2-dose series) [facility] Start: 01-31-2007 HPV Vaccines (1 - 2-dose series) HPV Vaccines (1 - 2-dose series) [facility] Start: 01-31-2006 Diabetic foot examination Diabetes: Foot Exam [facility] Start: 01-31-2006 Glaucoma screening Diabetes: Retinopathy Screening [facility] Start: 01-31-2006 Preventive dental service Diabetes: Dental Exam [facility] Start: 01-31-2005 HPV VACCINE (1 - 2-dose series) HPV VACCINE (1 - 2-dose series) [facility] Start: 01-31-1997 MMR Vaccines (1 of 1 - Standard series) MMR Vaccines (1 of 1 - Standard series) [facility] Start: 01-31-1997 Varicella vaccination Varicella Vaccines (1 of 2 - 2-dose childhood series) [facility] Start: 1996 Hemoglobin A1c measurement Diabetes: Hemoglobin A1C [facility] Start: 1996 HEPATITIS B (1 of 3 - 3-dose series) HEPATITIS B (1 of 3 - 3-dose series) [facility] Start: 1996 Hepatitis B Vaccine (1 of 3 - 3-dose series) Hepatitis B Vaccine (1 of 3 - 3-dose series) [facility] Start: 1996 Hepatitis B Vaccines (1 of 3 - 3-dose series) Hepatitis B Vaccines (1 of 3 - 3-dose series) [facility] Start: 1996 HIV screening HIV Screening [facility] Start: 1996 Lipid panel Lipid Panel [facility] aPTT in Platelet poo r plasma by Coagulation assay ACTIVATED PTT Lab STAT Von Willebrand disease (HCC) 09/23/2022 11:09 AM EDT [facility] Work Phone: Calprotectin [Mass/mass] in Stool CALPROTECTIN,FECAL Lab Routine Generalized abdominal pain Diarrhea, unspecified type Ordered: 06/09/2022 [facility] Work Phone: Comment on above: Ordered: 06/09/2022 Clostridioides difficile toxin genes [Presence] in Stool by MACIEL with probe detection C. DIFFICILE PCR Lab Routine Generalized abdominal pain Diarrhea, unspecified type Ordered: 06/09/2022 [facility] Work Phone: Comment on above: Ordered: 06/09/2022 End: 06-02-2023 COLONOSCOPY DIAGNOSTIC COLONOSCOPY DIAGNOSTIC Endoscopy Routine Generalized abdominal pain Diarrhea, unspecified type Rectal bleeding 1 Occurrences starting 06/02/2022 until 06/02/2023 [facility] Work Phone: Comment on above: 1 Occurrences starting 06/02/2022 until 06/02/2023 End: 06-30-2023 COLONOSCOPY DIAGNOSTIC COLONOSCOPY DIAGNOSTIC Endoscopy Routine Generalized abdominal pain Diarrhea, unspecified type Rectal bleeding 1 Occurrences starting 06/29/2022 until 06/30/2023 [facility] Work Phone: Comment on above: 1 Occurrences starting 06/29/2022 until 06/30/2023 End: 08-25-2023 COLONOSCOPY DIAGNOSTIC COLONOSCOPY DIAGNOSTIC Endoscopy Routine Generalized abdominal pain Diarrhea, unspecified type Rectal bleeding 1 Occurrences starting 08/24/2022 until 08/25/2023 [facility] Work Phone: Comment on above: 1 Occurrences starting 08/24/2022 until 08/25/2023 End: 09-22-2022 COLONOSCOPY DIAGNOSTIC COLONOSCOPY DIAGNOSTIC Endoscopy Routine Generalized abdominal pain Diarrhea, unspecified type Rectal bleeding 1 Occurrences starting 09/22/2022 until 09/22/2022 [facility] Work Phone: Comment on above: 1 Occurrences starting 09/22/2022 until 09/22/2022 End: 06-02-2023 EGD DIAGNOSTIC EGD DIAGNOSTIC Endoscopy Routine Bilious vomiting with nausea Generalized abdominal pain 1 Occurrences starting 06/02/2022 until 06/02/2023 [facility] Work Phone: Comment on above: 1 Occurrences starting 06/02/2022 until 06/02/2023 End: 06-30-2023 EGD DIAGNOSTIC EGD DIAGNOSTIC Endoscopy Routine Generalized abdominal pain Bilious vomiting with nausea 1 Occurrences starting 06/29/2022 until 06/30/2023 [facility] Work Phone: Comment on above: 1 Occurrences starting 06/29/2022 until 06/30/2023 End: 08-25-2023 EGD DIAGNOSTIC EGD DIAGNOSTIC Endoscopy Routine Bilious vomiting without nausea Generalized abdominal pain 1 Occurrences starting 08/24/2022 until 08/25/2023 [facility] Work Phone: Comment on above: 1 Occurrences starting 08/24/2022 until 08/25/2023 End: 09-22-2022 EGD DIAGNOSTIC EGD DIAGNOSTIC Endoscopy Routine Bilious vomiting without nausea Generalized abdominal pain 1 Occurrences starting 09/22/2022 until 09/22/2022 [facility] Work Phone: Comment on above: 1 Occurrences starting 09/22/2022 until 09/22/2022 ENTERIC BACTERIAL PA JAYCE BY PCR ENTERIC BACTERIAL PANEL BY PCR Lab Routine Generalized abdominal pain Diarrhea, unspecified type Ordered: 06/09/2022 [facility] Work Phone: Comment on above: Ordered: 06/09/2022 Giardia lamblia+Cryptosporidium sp Ag [Presence] in Stool by Immunoassay CRYPTOSPORIDIUM AND GIARDIA ANTIGENS BY EIA Microbiology Routine Generalized abdominal pain Diarrhea, unspecified type Ordered: 06/09/2022 [facility] Work Phone: Comment on above: Ordered: 06/09/2022 End: 07-28-2023 MR Abdomen WO and W contrast IV [facility] Work Phone: Comment on above: Once for 1 Occurrences starting 07/28/19 24 until 07/28/2023 OUTSIDE PROCEDURE SCAN OUTSIDE P ROCEDURE SCAN Procedures Ordered: 12/04/2022 [facility] Comment on above: Ordered: 12/04/2022 PANC ELASTASE, FECAL PANC ELASTA SE, FECAL Lab Routine Generalized abdominal pain Diarrhea, unspecified type Ordered: 06/09/2022 [facility] Work Phone: Comment on above: Ordered: 06/09/2022 Patient Education [facility] Work Phone: Patient referral [facility] Work Phone: PT panel - Platelet poor plasma by Coagulation assay PROTHROMBIN TIME/PT Lab STAT Von Willebrand disease (HCC) 09/23/2022 11:09 AM EDT [facility] Work Phone: SURGICAL PATHOLOGY [facility] Work Phone: Comment on above: Release Upon Ordering for 1 Occurrences starting 09/22/2022, 1 completed Tissue exam [facility] Work Phone: Comment on above: Release Upon Ordering for 1 Occurrences starting 09/03/2023 End: 07-02-2023 Us abdominal real time w/image limited US ABD RT UPPER QUADRANT Radiology Routine Bilious vomiting with nausea Generalized abdominal pain Diarrhea, unspecified type 1 Occurrences starting 06/02/2022 until 07/02/2023 [facility] Work Phone: Comment on above: 1 Occurrences starting 06/02/2022 until 07/02/2023 VON WILLEBRAND DX PANEL VON WILL EBRAND DX PANEL Lab STAT Von Willebrand disease (HCC) 09/23/2022 11:09 AM EDT [facility] Work Phone: VON WILLEBRAND PNL (VWFPN) VON WILLEBRAND PNL (VWFPN) Lab STAT Von Willebrand disease (HCC) 09/23/2022 11:09 AM EDT [facility] Work Phone: VWF PANEL (VWFPN) INTERP VWF PANEL (VWFPN) INTERP Lab STAT Von Willebrand disease (HCC) 09/23/2022 11:09 AM T [facility] Work Phone: [facility] Immunizations Immunization Date Immunization Notes Care Provider [facility] 01-25-2023 Influenza, injectabl e, quadrivalent, preservative free Melvin Posey MD Work Phone: [facility] 01-25-2023 influenza virus vacc ine, unspecified formulation Nunu Cortez MD Work Phone: [facility] 02-16-2022 Influenza, injectabl e, quadrivalent, preservative free Melvin Posey MD Work Phone: [facility] 02-16-2022 influenza virus vacc ine, unspecified formulation Nunu Cortez MD Work Phone: [facility] 01-03-2020 Influenza, injectabl e, Ruddy Lopez Canine Kidney, preservative free, quadrivalent Melvin Posey MD Work Phone: [facility] 02-24-2017 influenza, injectabl e, quadrivalent, preservative free [facility] 05-11-2016 tetanus toxoid, redu gabino diphtheria toxoid, and acellular pertussis vaccine, adsorbed Jeff Purvis MD Work Phone: [facility] 03-05-2016 Influenza, injectabl e, quadrivalent, preservative free Melvin Posey MD Work Phone: [facility] 02-19-2013 influenza, seasonal, injectable Melvin Posey MD Work Phone: [facility] 04-05-2003 influenza, seasonal, injectable Melvin Posey MD Work Phone: [facility] Payers Date Payer Category Payer Self-pay [id number] 2022 Commercial Managed [facility] [id number] 2022 Private Health Insurance [id number] 2022 Private Health Insurance [id number] 2017 Medicaid [employer] [id number] 2017-Present Medicaid [id number] 1996 Unknown [id number] 1996 Unknown [id number] 1996 Unknown [id number] 1996 Unknown [id number] Medicaid [id number] Private Health Insurance [employer] [id number] Unknown Unknown [id number] Unknown [id number] Unknown [id number] Unknown [id number] Unknown [id number] Unknown [id number] Unknown [id number] Social History Date Type Detail Facility Start: 04-05-2017 End: 06-02-2022 Tobacco smoking status NHIS Former smoker [facility] Start: 04-05-2017 End: 06-02-2022 Tobacco use and exposure Never used [facility] Start: 04-05-2017 End: 04-10-2024 Alcohol intake Current non-drinker of alcohol (finding) [facility] Start: 1995 Sex Assigned At Not on file [facility] Start: 04-26-2016 End: 04-26-2018 History of tobacco use Current smoker [facility] Start: 1995 Sex Assigned At Female [facility] Start: 04-26-2016 End: 04-26-2018 History of tobacco use Cigarette Smoker [facility] Start: 06-23-2022 End: 09-04-2022 Cigarettes smoked current (pack per day) - Reported 0.5 [facility] Start: 06-26-2022 End: 07-06-2022 Exposure to SARS-CoV-2 (event) Not sure [facility] Start: 06-23-2022 End: 09-04-2022 Tobacco use panel [facility] Adult Depression Screening Assessment 0 [facility] Start: 06-01-2022 Gender identity Identifies as female gender (finding) [facility] Start: 06-01-2022 Sexual orientation Heterosexual (fin ding) [facility] Start: 06-16-2023 Tobacco smoking stat us NHIS Unknown if ever smoked [facility] Has the electric, [employer], oil, or water company threatened to shut off services in your home in past 12Mo No [facility] (I/We) worried wheth er (my/our) food would run out before (I/we) got money to buy more. Never true [facility] Start: 11-24-2021 Sex Female (finding) [facility] Clinical Notes 06-02-2022 to 09-26-2024 Telephone Encounter - Bakari Sivla MD - 09/26/2024 7:06 AM EDTTelephone Encounter - Bakari Silva MD - 09/26/2024 7:06 AM EDTTelephone Encounter - Bakari Silva MD - 09/26/2024 7:01 AM EDTAttachments Note Date & Type Note Facility 09-26-2024 Telephone encounter Note I spoke to Jerrica in the morning of 09/26/24 (see separate phone encounter). Oncology staff, please write a letter for Jerrica excusing her from school for 09/25 and 09/26/24. Thank you. [facility] 09-26-2024 Miscellaneous Notes I spoke to Jerrica in the morning of 09/26/24 (see separate phone encounter). Oncology staff, please write a letter for Jerrica excusing her from school for 09/25 and 09/26/24. Thank you. documented in this encounter [facility] 09-26-2024 Telephone encounter Note Jerrica called the Answering Service and explained that she has had rectal bleeding since yesterday. I will prescribe Amicar again. She still has DDAVP. She will call the GI office today for an appointment. [facility] 09-26-2024 Miscellaneous Notes Jerrica called the Answering Service and explained that she has had rectal bleeding since yesterday. I will prescribe Amicar again. She still has DDAVP. She will call the GI office today for an appointment. documented in this encounter [facility] 08-31-2024 Radiology Diagnostic study note [facility] Imaging Services [address] [place] [id number] Abdomen/Pelvis W IV Cont ONLY MR#: [id number] Acct: [id number] Name: JERRICA SUGGS Rep #: [id number] : 1995 F 29 From: [place] Carlson MD PCP: Dr. Nunu Cortez MD Status: REG E R Study:Abdomen/Pelvis W IV Cont ONLY Date of E xam: 08/31/24 Exam# [id number] Ordering Dr: Bettina Garcia DO PROCEDURE: ABDOMEN/PELVIS W IV CONT ONLY 08/31/2024 REASON FOR EXAM: ABDOMINAL PAIN, RECTAL BLEEDING TECHNIQUE: Abdomen and pelvis CT with intravenous contrast. Coronal and Sagittal reconstruction series were provided. PATIENT PREPARATION: Per protocol ORAL CONTRAST TYPE: None. AMOUNT: mL CONTRAST: Omnipaque 350 VOLUME: 100 mL Not Provided Gauge IV One or more dose reduction techniques were used (e.g., Automated exposure control, adjustment of the mA and/or kV according to patient size, use of iterative reconstruction technique. COMPARISON: CT abdomen and pelvis 05/31/2019 FINDINGS: Lung bases: Unremarkable Liver: Normal size. No mass. Gallbladder: Surgically absent. No ductal dilation. Spleen: Normal size. Pancreas: Normal size without evidence of mass surrounding inflammation or ductal dilation. Adrenals: Unremarkable. Kidneys: Normal renal sizes. No hydronephrosis. Bladder: Urinary bladder is unremarkable. Reproductive Organs: IUD is noted a normal position. Bowel: Stomach is unremarkable. No bowel dilation. Descending and rectosigmoidwall thickening with mild submucosal hyperemia and surrounding mesenteric soft tissue stranding. Findings concerning for infectious colitis.. Appendix: Normal appendix. Lymph nodes: No suspicious lymph node enlargement. Vasculature: The abdominal aorta and IVC are normal. Peritoneum / Retroperitoneum: No ascites. No pneumoperitoneum. Bones: Unremarkable. CT/Abdomen/Pelvis W IV Cont ONLY IMPRESSION: Descending and rectosigmoid colon, wall thickening, mild submucosal hyperemia and mesenteric soft tissue stranding, concerning for acute infectious colitis. [facility] CC: Dr. Nunu Cortez MD; Dr. Tom Garcia, DO ~ Roll Tension Tester: Signed [facility] 08-30-2024 Telephone encounter Note Letter sent to patients [facility] via her request. Tamie Whitney MA [facility] 08-30-2024 Miscellaneous Notes Letter sent to patients [facility] via her request. Tamie Whitney MA I sent letter to your inbox. 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 She states that she will go home and dose her DDAVP to help control this but it gives her massive headaches and unable to drive while doing this. Can we get a letter for today, since Dr Silva is out of office this week? Tamie Whitney MA documented in this encounter [facility] 08-30-2024 Telephone encounter Note I sent letter to your inbox. 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 She states that she will go home and dose her DDAVP to help control this but it gives her massive headaches and unable to drive while doing this. Can we get a letter for today, since Dr Silva is out of office this week? Tamie Whitney MA [facility] 07-06-2024 Telephone encounter Note Called to get pt booked based on referral pt wants near [facility] where lives Hiren Mendez [facility] [facility] Miscellaneous Notes Called to get pt booked based on referral pt wants near [facility] where lives Hiren Irene documented in this encounter [facility] 06-22-2024 Miscellaneous Notes She started with the rectal bleeding last Wednesday and last episode was yesterday. She will reach out to GI to schedule. She will also miner pick the amicar. GI consult faxed. Bushra Zamora RN I cannot tell based on the last note in this message thread whether she prefers Amicar or Lysteda, so I will renew the latest which was Amicar. Please let patient know that a GI consult has been placed. Please let her know that her labs show normal von Willebrand level, so I would not prescribe factors at this time. Please make sure to ask the questions I mentioned on 06/19- when was the last rectal bleeding episode before this week? The GI referral will be back to the group at [facility]- is she able to call them also to expedite (a follow-up appointment may be easier to obtain than a new referral)? Called patient, she will get lab work drawn, she would like medication for bleeding and GI consult. Bushra Zamora RN From a hematological perspective, I have ordered repeat von willebrand levels and CBC which I would advise her to have drawn. If the levels are low, we can arrange for factor infusion, but not before the results come back. Would she like a refill of Amicar or Lysteda to take as needed for bleeding? Even if PCP is out of state, there should be a PCP covering- please advise to see if she can see the covering provider in the interim. I can refer her to GI but the wait time will be weeks before she can see someone for endoscopic evaluation. She was seen by GI (see note 10/01/22) previously , can she call them for a follow-up? How long has she had rectal bleeding for, and when was the last time she experienced bleeding before this episode? Last I heard about rectal bleeding from Jerrica was in 09/2022. patient called in this morning reporting rectal bleeding, bright red, she said its a decent amount of blood. happens with and without bowel movements. she called her PCP she is out of the state, please advise (she is sending a picture of the toilet in a min, its a pic from yesterday) she does not have a GI doctor either. Message sent to Dr. Silva on [employer] chat. Bushra Zamora RN documented in this encounter [facility] 06-22-2024 Telephone encounter Note She started with the rectal bleeding last Wednesday and last episode was yesterday. She will reach out to GI to schedule. She will also miner pick the amicar. GI consult faxed. Bushra Zamora RN [facility] 06-22-2024 Telephone encounter Note I cannot tell based on the last note in this message thread whether she prefers Amicar or Lysteda, so I will renew the latest which was Amicar. Please let patient know that a GI consult has been placed. Please let her know that her labs show normal von Willebrand level, so I would not prescribe factors at this time. Please make sure to ask the questions I mentioned on 06/19- when was the last rectal bleeding episode before this week? The GI referral will be back to the group at [facility]- is she able to call them also to expedite (a follow-up appointment may be easier to obtain than a new referral)? [facility] 06-19-2024 Telephone encounter Note Called patient, she will get lab work drawn, she would like medication for bleeding and GI consult. Bushra Zamora RN [facility] 06-19-2024 Telephone encounter Note From a hematological perspective, I have ordered repeat von willebrand levels and CBC which I would advise her to have drawn. If the levels are low, we can arrange for factor infusion, but not before the results come back. Would she like a refill of Amicar or Lysteda to take as needed for bleeding? Even if PCP is out of state, there should be a PCP covering- please advise to see if she can see the covering provider in the interim. I can refer her to GI but the wait time will be weeks before she can see someone for endoscopic evaluation. She was seen by GI (see note 10/01/22) previously , can she call them for a follow-up? How long has she had rectal bleeding for, and when was the last time she experienced bleeding before this episode? Last I heard about rectal bleeding from Jerrica was in 09/2022. [facility] 06-19-2024 Telephone encounter Note patient called in this morning reporting rectal bleeding, bright red, she said its a decent amount of blood. happens with and without bowel movements. she called her PCP she is out of the state, please advise (she is sending a picture of the toilet in a min, its a pic from yesterday) she does not have a GI doctor either. Message sent to Dr. Silva on [employer] chat. Bushra Zamora RN [facility] 06-05-2024 Telephone encounter Note S: Patient spoke with CAC nurse regarding Flank Pain, low grade fever, Frequent urination -Callback B: Onset of symptoms/concern Unknown A: No answer upon callback. Message left for patient to return call to office for further questions or concerns. R: No contact call. RN will send TE to office for follow up. Reason for Disposition Message left on unidentified voice mail. Phone number verified. Protocols used: No Contact or Duplicate Contact [id number] [facility] 06-05-2024 Miscellaneous Notes S: Patient spoke with CAC nurse regarding Flank Pain, low grade fever, Frequent urination -Callback B: Onset of symptoms/concern Unknown A: No answer upon callback. Message left for patient to return call to office for further questions or concerns. R: No contact call. RN will send TE to office for follow up. Reason for Disposition Message left on unidentified voice mail. Phone number verified. Protocols used: No Contact or Duplicate Contact [id number] documented in this encounter [facility] 04-10-2024 History of Presen t illness Narrative Radiology Service Progress Note PATIENT NAME: Jerrica Suggs DATE OF SERVICE: April 10, 2024 TIME: 8:48 AM PATIENT IDENTITY VERIFICATION COMPLETED USING TWO (2) IDENTIFIERS: Name and Date of confirmed by patient verbally. FALL SCREENING: Has the patient had 2 falls in the last year or 1 fall with injury or currently using an Ambulatory Assistive Device (Walker, Cane, Wheelchair, Crutches, etc.)? No PATIENT GENDER DATA: Female. status: : No status: NO. PATIENT RELEVANT IMPLANT DATA REVIEWED: Yes PATIENT PRESENTS WITH AN IMPLANTABLE OR ATTACHED CLINICAL DATA RESEARCH: No RADIOLOGY DEPARTMENT: General X-ray: Exam(s) Completed: Chest X-Ray PERIPHERAL IV DATA: Not applicable SIGNED BY: RT Wanda(R) April 10, 2024 8:48 AM documented in this encounter [facility] 04-10-2024 Note HNO ID: [id number] Author: GAGE CARABALLO RT(R) Service: ? Author Type: Securities Vault Supervisor Type: Progress Notes Filed: 04/10/2024 08:55 Note Text: Radiology Service Progress Note PATIENT NAME: Jerrica Suggs DATE OF SERVICE: April 10, 2024 TIME: 8:48 AM PATIENT IDENTITY VERIFICATION COMPLETED USING TWO (2) IDENTIFIERS: Name and Date of confirmed by patient verbally. FALL SCREENING: Has the patient had 2 falls in the last year or 1 fall with injury or currently using an Ambulatory Assistive Device (Walker, Cane, Wheelchair, Crutches, etc.)? No PATIENT GENDER DATA: Female. status: : No status: NO. PATIENT RELEVANT IMPLANT DATA REVIEWED: Yes PATIENT PRESENTS WITH AN IMPLANTABLE OR ATTACHED CLINICAL DATA RESEARCH: No RADIOLOGY DEPARTMENT: General X-ray: Exam(s) Completed: Chest X-Ray PERIPHERAL IV DATA: Not applicable SIGNED BY: RT Wanda(Gil) April 10, 2024 8:48 AM [facility] 04-10-2024 Note HNO ID: [id number] Author: DMITRY GALVAN APRN.CHILD DAY CARE TEACHER Service: ? Author Type: Nurse Practitioner Type: Progress Notes Filed: 04/10/2024 09:18 Note Text: Subjective HPI Nontoxic appearing female presents urgent care chief plaint cough chest congestion. Duration of symptoms 1 week. Associated symptoms cough chest congestion body aches chills wheezing headache sore throat. Most prominent symptom today is cough. Cough is productive. Is on day 5 of doxycycline from PCP. Does not feel like this is improving. 2 negative home COVID test. Denies any hemoptysis pleuritic pain chest pain. Denies chance of . Is not breast-feeding. Past medical history prescription medications allergies reviewed. BP 122/72 Pulse 93 Temp 36.9 ?C (98.5 ?F) Resp 16 Wt 77.5 kg (170 lb 13.7 oz) LMP 08/02/2023 (Exact Date) SpO2 98% BMI 31.76 kg/m? .Patient presents with: Sinus Problem: sinus pressure, drainage, wheezing, headache and sore throat on doxycycline x 6 days PAST MEDICAL HISTORY Diagnosis Date Encounter for preoperative assessment 09/04/2022 H/O removal of cyst from back of head Ureteral reflux with re-implantation at 9 months Vesico-ureteral reflux Von Willebrand disease Type I diagnosed at age 17. PAST SURGICAL HISTORY Procedure Laterality Date COLONOSCOPY 09/22/2022 EGD W/O BRSH SPEC VARICIES INJ 09/22/2022 OTHER ureteral-reimplantation TONSILLECTOMY HX TOOTH EXTRACTION ALLERGIES Aluminum Aspirin, Ibuprofen, Aspirin, Hydrocodone-Acetaminophen, Nsaids (Non-Steroidal Anti-Inflammatory Drug), and Dicyclomine MEDICATIONS doxycycline hyclate (VIBRAMYCIN) 100 mg capsule Take 1 capsule by mouth every 12 hours. escitalopram oxalate (LEXAPRO) 20 mg tablet Take 1 tablet by mouth every afternoon. aminocaproic acid (AMICAR) 250 mg/mL (25 %) solution Take 20 mL by mouth every 6 hours as needed (bleeding). ondansetron orally disintegrating (ZOFRAN ODT) 8 mg disintegrating tablet Take 1 tablet by mouth every 8 hours as needed for nausea/vomiting. acetaminophen (TYLENOL) 325 mg tablet Take by mouth as directed. promethazine (PHENERGAN) 12.5 mg tablet Take 1 tablet by mouth every 6 hours as needed. venlafaxine ER (EFFEXOR XR) 150 mg 24 hr capsule (Patient not taking: Reported on 04/10/2024) venlafaxine ER (EFFEXOR XR) 37.5 mg 24 hr capsule Take 37.5 mg by mouth. (Patient not taking: Reported on 04/10/2024) omeprazole (PRILOSEC) 20 mg capsule Take 1 capsule by mouth once daily. tranexamic acid (LYSTEDA) 650 mg tablet Take 2 tablets by mouth every 8 hours for 3 days, THEN 2 tablets every 8 hours as needed (Visible GI bleeding) for up to 4 days. aluminum chloride (DRYSOL) 20 % external solution hyoscyamine sublingual (LEVSIN/SL) 0.125 mg Dissolve 1 tablet under the tongue every 4 hours as needed. FAMILY HISTORY Problem Relation Age of Onset other (MS) Mother other (Diverticulosis) Mother other (Other) Father Multiple Sclerosis Paternal Grandmother other (Limted information; brother; mother, grandmother don't want to be tested.) Other Social History Tobacco Use Smoking status: Former Smokeless tobacco: Never Vaping Use Vaping status: Never Used Substance Use Topics Alcohol use: No Drug use: No Review of Systems Constitutional: Positive for malaise/fatigue. Negative for chills and fever. HENT: Positive for congestion and sore throat. Negative for ear discharge, ear pain and sinus pain. Eyes: Negative for blurred vision, pain, discharge and redness. Respiratory: Positive for cough and sputum production. Negative for hemoptysis, shortness of breath, wheezing and stridor. Cardiovascular: Negative for chest pain. Gastrointestinal: Negative for abdominal pain, diarrhea, nausea and vomiting. Musculoskeletal: Positive for myalgias. Skin: Negative for itching and rash. Neurological: Positive for headaches. Negative for dizziness. Objective Physical Exam Constitutional: General: She is not in acute distress. Appearance: She is not diaphoretic. HENT: Head: Normocephalic. Jaw: No trismus, tenderness, swelling or pain on movement. Mouth/Throat: Mouth: Mucous membranes are moist. Pharynx: Oropharynx is clear. Uvula midline. No pharyngeal swelling, oropharyngeal exudate, posterior oropharyngeal erythema or uvula swelling. Eyes: Conjunctiva/sclera: Conjunctivae normal. Pupils: Pupils are equal, round, and reactive to light. Cardiovascular: Rate and Rhythm: Normal rate and regular rhythm. Heart sounds: Normal heart sounds. Pulmonary: Effort: Pulmonary effort is normal. No tachypnea, accessory muscle usage or respiratory distress. Breath sounds: No stridor. Wheezing and rhonchi present. No rales. Abdominal: General: There is no distension. Palpations: Abdomen is soft. Tenderness: There is no abdominal tenderness. There is no guarding or rebound. Musculoskeletal: Cervical back: Normal range of motion and (more content not included)... [facility] 12-17-2023 Telephone encounter Note Jerrica called in regarding appointment scheduled 12/20/23 for her vaccination. States she was unaware while scheduling appointment it was being scheduled in [place] office opposed to [place]. Asked if it was possible to be completed in [place]. Please advise. [facility] 12-17-2023 Miscellaneous Notes Jerrica called in regarding appointment scheduled 12/20/23 for her vaccination. States she was unaware while scheduling appointment it was being scheduled in [place] office opposed to [place]. Asked if it was possible to be completed in [place]. Please advise. documented in this encounter [facility] 09-15-2023 History of Presen t illness Narrative Images from the original note were not included. [facility] Laparoscopic Surgery Patient Name: Jerrica Suggs Date: 09/17/23 S: Jerrica Suggs follows up for a post operative visit after undergoing a laparoscopic cholecystectomy with Dr. Posey on 09/03/23. She is doing well without any major postoperative complications. Her pain control is well controlled and she is not asking for narcotic refills. Her bowel function has returned to normal without constipation or diarrhea. Her appetite is returning to normal and she does not report any dysphagia, nausea or vomiting. Overall, she states that she's doing well. Had no issues with postop bleeding with her von Willebrand disease. States that she still has some mild RUQ discomfort, but improved. Denies significant issues with PO intake or bowel movements. Otherwise, no major concerns today. Allergies Allergen Reactions Aspirin Other Due to having a bleeding disorder Other reaction(s): Bleeding Ibuprofen Other Due to having a bleeding disorder Nsaids Other Due to bleeding disorder. Hydrocodone Itching OKAY TO TAKE JUST TYLENOL Naproxen Due to bleeding disorder Dicyclomine Palpitations Current Outpatient Medications Medication Sig Dispense Refill acetaminophen (Tylenol) 325 MG tablet Take by mouth every 4 hours as needed. levonorgestrel (Mirena, 52 MG,) 20 MCG/DAY IUD 1 each by IntraUTERine route Once. Multiple Vitamin (multivitamin) capsule Take 1 capsule by mouth daily. ondansetron ODT (Zofran-ODT) 8 MG disintegrating tablet every 8 hours as needed. promethazine (Phenergan) 12.5 MG tablet Take 12.5 mg by mouth every 6 hours as needed. venlafaxine XR (Effexor XR) 150 MG 24 hr capsule Nightly. venlafaxine XR (Effexor XR) 37.5 MG 24 hr capsule Take 37.5 mg by mouth Nightly. Do not crush or chew. Xanax 0.25 MG tablet 1 tablet Orally daily prn anxiety for 30 days No current facility-administered medications for this visit. Past Medical History: Diagnosis Date Acid reflux Disease of blood and blood forming organ IBS (irritable bowel syndrome) Vesicoureteral reflux Von Willebrand disease (HCC) Past Surgical History: Procedure Laterality Date SECTION (HISTORICAL) 2017 CHOLECYSTECTOMY 09/03/2023 Taty; lap KIDNEY SURGERY re implanted ureters at the age of 9 months old TONSILLECTOMY (HISTORICAL) O: BP 102/59 (BP Location: Right arm, Patient Position: Sitting, BP Cuff Size: Adult) Pulse 107 Temp 36.6 C (97.8 F) (Temporal) Ht 5' 2 (1.575 m) Wt 161 lb (73 kg) LMP 08/09/2023 Comment: MIRENA IUD BMI 29.45 kg/m Physical Exam: The wounds are healing well. There is no evidence of infection, seroma, erythema or hernia; abdomen soft, non-tender Pathology: Final Diagnosis GALLBLADDER, CHOLECYSTECTOMY: - MILD CHRONIC CHOLECYSTITIS WITH CHOLESTEROLOSIS Assessment/Plan Jerrica was seen today for post-op. Diagnoses and all orders for this visit: Encounter for postoperative care (Primary) Jerrica Suggs is a 28 y.o. female presenting for postoperative evaluation after undergoing laparoscopic cholecystectomy on 09/03/23. She may advance diet as tolerated. She may increase their activity to a normal level yet refrain from lifting greater than 15# for one month after surgery. Follow-up PRN. The patient was seen and examined independently and relevant data reviewed by myself. A full chart review was performed. Patient Care Team: Nunu Cortez MD as PCP - General (Family Medicine) Bakari Silva MD (Hematology and Oncology) documented in this encounter [facility] 09-04-2023 Note Discharge Summary Jerrica Suggs : 1995 ADMIT DATE: 09/03/2023 DISCHARGE DATE: 09/04/2023 PRIMARY CARE PHYSICIAN: Nunu Cortez VISIT STATUS: Observation CODE STATUS: Full Code DISCHARGE DIAGNOSES: Principal Problem: Epigastric pain HOSPITAL COURSE: Jerrica Suggs underwent laparoscopic cholecystectomy on 09/03/2023 and tolerated the procedure well. She has a hx of von willebrand's disease so her chrome polisher's recommendations were followed, given pre-op vWF and post op was well. She was discharged home on 09/04/23 in good condition. SIGNIFICANT DIAGNOSTIC STUDIES: Pathology CONSULTANTS: Heme/onc RECOMMENDED NEXT STEPS: Follow up DISCHARGE MEDICATIONS: Medication List START taking these medications ondansetron 4 MG tablet Commonly known as: Zofran Take 2 tablets (8 mg) by mouth every 8 hours as needed for nausea or vomiting for up to 7 days. oxyCODONE 5 MG immediate release tablet Commonly known as: Roxicodone Take 1 tablet (5 mg) by mouth every 6 hours as needed for severe pain (7-10) for up to 5 days. CONTINUE taking these medications acetaminophen 325 MG tablet Commonly known as: Tylenol * Effexor XR 150 MG 24 hr capsule Generic drug: venlafaxine XR * venlafaxine XR 37.5 MG 24 hr capsule Commonly known as: Effexor XR Mirena (52 MG) 20 MCG/DAY IUD Generic drug: levonorgestrel multivitamin capsule mupirocin 2 % ointment Commonly known as: Bactroban ondansetron ODT 8 MG disintegrating tablet Commonly known as: Zofran-ODT promethazine 12.5 MG tablet Commonly known as: Phenergan Xanax 0.25 MG tablet Generic drug: ALPRAZolam * This list has 2 medication(s) that are the same as other medications prescribed for you. Read the directions carefully, and ask your doctor or other care provider to review them with you. Where to Get Your Medications These medications were sent to [facility]/pharmacy #[id number] - [place] [phone] ondansetron 4 MG tablet oxyCODONE 5 MG immediate release tablet DIET: Adult diet Regular ACTIVITY: No heavy lifting. COMPLEXITY OF FOLLOW UP: [] Moderate Complexity: follow up within 7-14 calendar days (51675) [] Severe Complexity: follow up within 7 calendar days (78408) FOLLOW UP TESTING, PENDING RESULTS OR REFERRALS AT TRANSITIONAL CARE VISIT: [] Yes [] No PENDING STUDIES: Pathology DISPOSITION: Home FACILITY/HOME CARE AGENCY NAME: n/a Follow up with Melvin Posey MD [address] [place] [address] [address] [facility] [address] Follow up in 2 week(s) INSTRUCTIONS TO MA/SW: Please call patient on day after discharge (must document patient contacted within 2 business days of discharge). FOLLOW UP QUESTIONS FOR MA/SW: 1. Did you get medications filled and taking them as instructed from discharge? 2. Are you following your discharge instructions from your hospital stay? 3. Please confirm patient is scheduled for a follow up appointment within the above time frame. DISCHARGE TIME: > 30 minutes SIGNED: Angelica Warner MD 09/04/2023, 9:15 AM [facility] 09-04-2023 Hospital Discharg e instructions Angelica Warner MD - 09/04/2023 9:07 AM EDT Discharge Instructions Call your surgeon in 1 to 2 days to schedule a follow-up appointment in 1-2 weeks. OK to shower. OK for activity as tolerated. No lifting over 10 pounds. Wound Care: keep wound clean and dry, reinforce dressing PRN and ice to area for comfort. If you have steri-strips, you may remove them 5 days after your surgery. If your steri-strips fall off sooner, you may leave them off. If you have lyndsay, they can be removed in 14 days after your surgery by your surgeon or PCP. If you have a drain, please record daily output amounts and bring the recordings with you to your office follow up. No driving while taking narcotic/sedating medications. You may take an over the counter stool softener while on narcotics for constipation as needed (colace, miralax, etc). Continue your diet as currently ordered. Call your Physician or return to the Emergency Room if you experience: -New or increased pain. -New or increased bleeding. -Nausea & vomitting. -Fever & chills. -Shortness of breath. -Chest pain. -Abdominal distention. Post-Operative Pain Reduction Strategy to Minimize Opioid Use Please take acetaminophen (Tylenol) and/or NSAIDS (Advil, Motrin) for postoperative pain control before taking opioid prescriptions for pain. You can alternate between the two or stagger them to achieve a more durable pain control regimen. -Do not exceed more than 4g (4000 mg) of acetaminophen within 24 hours -Do not exceed more than 3200 mg NSAIDs in 24 hours -Do not take NSAIDs or acetaminophen if you have any contraindications to them, such as ulcers, liver disease, or bleeding. If your pain is not controlled by acetaminophen and/or NSAIDS, please take your opioid prescription ([place]/vicodin/percocet have tylenol in them) as needed for pain relief and try to use the minimum amount necessary for adequate pain relief. Opioid narcotics can suppress your respiratory drive and decrease your level of alertness. It can also cause your bowel function to slow down and potentially make you constipated. -Do not drive or operate heavy machinery while on narcotic medications. -You can take Colace or MiraLAX over the counter as needed for constipation. Please properly dispose your excess opioid medications at the appropriate facility/location. An EXAMPLE schedule of how to take these medications is below. It is not necessary to wake yourself from sleep to take pain medication. 6am: 1000 mg tylenol and 1-2 oxycodone (5mg) tablets if needed 9am: 800 mg ibuprofen 12pm: 1000 mg tylenol and 1-2 oxycodone (5mg) tablets if needed 3pm: 800 mg ibuprofen 6pm: 1000 mg tylenol and 1-2 oxycodone (5mg) tablets if needed 9pm: 800 mg ibuprofen 12am: 1000 mg tylenol and 1-2 oxycodone (5mg) tablets if needed 3am: 800 mg ibuprofen 6am: 1000 mg tylenol and 1-2 oxycodone (5mg) tablets if needed documented in this encounter [facility] 09-04-2023 Note Department of [facility] l Surgery Daily Progress Note ADMIT DATE: 09/03/2023 TODAY'S DATE: 09/04/2023 SUBJECTIVE: No acute events overnight. Pain well controlled. No bleeding noted from incisions. Tolerating diet. OBJECTIVE: VITALS: BP 111/74 (BP Location: Left arm) Pulse 111 Temp 37.2 ?C (98.9 ?F) (Temporal) Resp 18 Ht 1.575 m (5' 2) Wt 70.8 kg (156 lb) SpO2 95% BMI 28.53 kg/m? INTAKE/OUTPUT: @IODETAILS@ I/O last 3 completed shifts: In: 500 (7.1 mL/kg) [I.V.:500 (7.1 mL/kg)] Out: 5 (0.1 mL/kg) [Blood:5] Weight: 70.8 kg I/O this shift: In: 250 [P.O.:250] Out: - PHYSICAL EXAM: Gen: NAD, A&Ox3, pain well controlled Heart: RRR, well perfused Lungs: symmetric chest rise, normal work of breathing, breath sounds b/l Abd: soft, appropriately ttp, incisions covered with bandaids Ext: no c/c/e no gross deformities Skin: warm, well perfused, <2 cm cap refill, no obvious rashes, cellulitis or gross discoloration LABS No results found for: CBCDIF, BMPR1A Current Inpatient Medications Scheduled Meds:antihemophilic factor-vwf, 2,070 VWF:RCo Units, IntraVENous, Once venlafaxine XR, 150 mg, Oral, Nightly venlafaxine XR, 37.5 mg, Oral, Nightly Continuous Infusions:lactated Ringer's, 50 mL/hr, Last Rate: Stopped (09/03/23 1116) PRN Meds:PRN medications: acetaminophen, ALPRAZolam, HYDROmorphone OR HYDROmorphone, naloxone, ondansetron ODT OR ondansetron, oxyCODONE OR oxyCODONE, promethazine ASSESSMENT AND PLAN: 28 y.o. female with vWD, s/p lap huyen 09/02 - Regular diet - Transfuse vWF per heme/onc - PRN pain meds - anticipate discharge home today - Will d/w Dr. Taty Warner MD General Surgery PGY-5 [facility] 09-03-2023 Consult note Formatting of th is note is different from the original. Images from the original note were not included. [facility] Hematology Oncology Inpatient Consultation [facility] Jerrica Suggs : 1995(28 y.o.) Date: September 03, 2023 Attending: Dr. Purvis Reason for consult: vWD S/P lap huyen. Consulting - Melvin Posey MD Primary Care Physician - Nunu Cortez MD Date of Admission - 09/03/2023 9:26 AM Subjective: No chief complaint on file. HPI Jerrica Suggs is a 28 y.o. woman with Type 1 Von Willebrand disease, pancreatic cyst, IBS, tonsillectomy, and who presented for an elective lap cholecystectomy. She received a dose of Alphanate 3,330 units prior to surgery as per Dr. Silva. Doing well post op. Has nausea and abdominal pain. Discussed plan per Dr. Silva. Oncology HPI: Von Willebrand disease type I, diagnosed at age 17 at [facility], when prolonged PTT was noted in preparation for tonsillectomy. In 02/2012, patient was characterized as a DDAVP responder. - In 2012, for tonsillectomy, patient recalls having been prescribed Humate-P and Amicar. - In 2016, for her son's delivery, patient recalls having used Humate before and after delivery, and Stimate as well. Jerrica declines nasal DDAVP for her procedures in 2022 due to concern for adverse effects. - On 09/22/22, Jerrica received IV DDAVP 20 mcg prior to EGD and colonoscopy, and IV tranexamic acid 1000 mg prior to discharge. She was provided with a prescription for tranexamic acid 1300 mg PO every 8 hours (due to unavailability of aminocaproic acid 5000 mg PO q6h) for a 7-day course, which she can discontinue in a few days if no persistent bleeding. She was given a second dose of IV DDAVP 20 mcg on day 2 of the procedure. 08/23/23 Von Willebrand Panel: Ristocetin Co-Factor 76% Collagen Binding (CBA) 54% Factor VIII:C Assay 53% Von Willebrand Ag 78% RistoCetin/VWF Ratio 1.0 CBA/VWF Ratio 0.7 FVIII/VWF Ratio 0.7 Normal multimer intensity with normal distribution of multimer sizes. Platelet function screen normal. PTT 36.[address] Silva with hematology/oncology [facility] and plan is per below: - Please infuse 50 VWF:RCo IU/kg on the morning of surgery (09/03/23), then infuse a second dose at 30 VWF: RCo IU/kg on POD #2 (09/04/23). 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 IBS (irritable bowel syndrome) Vesicoureteral reflux Von Willebrand disease (HCC) Past Surgical History: Procedure Laterality Date SECTION (HISTORICAL) 2017 KIDNEY SURGERY re implanted ureters at the age of 9 months old TONSILLECTOMY (HISTORICAL) Family History Problem Relation Name Age of Onset High Blood Pressure Mother Multiple sclerosis Mother Cancer Paternal Grandmother Social History Socioeconomic History Marital status: Spouse name: Not on file Number of children: Not on file Years of education: Not on file Highest education level: Not on file Occupational History Not on file Tobacco Use Smoking status: Former Packs/day: 0.50 Years: 2.00 Additional pack years: 0.00 Total pack years: 1.00 Types: Cigarettes Quit date: 2019 Years since quittin.3 Smokeless tobacco: Never Vaping Use Vaping Use: Never used Substance and Sexual Activity Alcohol use: No Drug use: No Sexual activity: Not on file Other Topics Concern Not on file Social History Narrative Not on file Social Determinants of Health Financial Resource Strain: Not on file Food Insecurity: Not on file Transportation Needs: Not on file Physical Activity: Not on file Stress: Not on file Social Connections: Not on file Intimate Partner Violence: Not on file Housing Stability: Not on file Allergies Allergen Reactions Aspirin Other Due to having a bleeding disorder Other reaction(s): Bleeding Ibuprofen Other Due to having a bleeding disorder Nsaids Other Due to bleeding disorder. Hydrocodone Itching OKAY TO TAKE JUST TYLENOL Naproxen Due to bleeding disorder Dicyclomine Palpitations Prior to Admission medications Medication Sig Start Date End Date Taking? Authorizing Provider acetaminophen (Tylenol) 325 MG tablet Take by mouth every 4 hours as needed. Yes Historical Provider, ondansetron ODT (Zofran-ODT) 8 MG disintegrating tablet every 8 hours as needed. 06/02/22 Yes Historical Provider, promethazine (Phenergan) 12.5 MG tablet Take 12.5 mg by mouth every 6 hours as needed. 06/09/22 Yes Historical Provider, venlafaxine XR (Effexor XR) 150 MG 24 hr capsule Nightly. 05/08/23 Yes Historical Provider, venlafaxine XR (Effexor XR) 37.5 MG 24 hr capsule Take 37.5 mg by mouth Nightly. Do not crush or chew. Yes Historical Provider, Xanax 0.25 MG tablet 1 tablet Orally daily prn anxiety for 30 days 07/01/23 Yes Historical Provider, levonorgestrel (Mirena, 52 MG,) 20 MCG/DAY IUD 1 each by IntraUTERine route Once. Historical Provider, Multiple Vitamin (multivitamin) capsule Take 1 capsule by mouth daily. Historical Provider, mupirocin (Bactroban) 2 % ointment every 12 hours. 01/05/22 Historical Provider, Review of Systems Constitutional: Negative for activity change, appetite change, chills, diaphoresis, fatigue, fever and unexpected weight change. HENT: Negative for dental problem, facial swelling, mouth sores, nosebleeds, trouble swallowing and voice change. Eyes: Negative for photophobia and visual disturbance. Respiratory: Negative for cough, shortness of breath and wheezing. Cardiovascular: Negative for chest pain and leg swelling. Gastrointestinal: Positive for abdominal pain. Negative for abdominal distention, blood in stool, constipation, diarrhea, nausea and vomiting. IBS Endocrine: Negative for polydipsia, polyphagia and polyuria. Genitourinary: Negative for difficulty urinating and dysuria. Musculoskeletal: Negative for arthralgias, back pain and gait problem. Skin: Negative for color change, rash and wound. Neurological: Negative for dizziness, seizures, speech difficulty, weakness and headaches. Hematological: Negative for adenopathy. Bruises/bleeds easily. Psychiatric/Behavioral: Negative for agitation and confusion. The patient is nervous/anxious. Objective: ECOG PS: 0/1 Vitals: 09/03/23 1245 09/03/23 1300 09/03/23 1315 09/03/23 1330 BP: 123/79 124/74 92/75 117/81 BP Location: Patient Position: Pulse: 89 86 94 86 Resp: 16 15 15 15 Temp: 36.3 C (97.3 F) TempSrc: Temporal SpO2: 99% 97% 98% 97% Weight: Height: Wt Readings from Last 3 Encounters: 09/03/23 71.6 kg (157 lb 13.6 oz) 08/30/23 71.6 kg (157 lb 14.4 oz) 07/05/23 68.5 kg (151 lb) Physical Exam Constitutional: Appearance: Normal appearance. She is not toxic-appearing or diaphoretic. HENT: Head: Normocephalic and atraumatic. Right Ear: External ear normal. Left Ear: External ear normal. Nose: Nose normal. No rhinorrhea. Mouth/Throat: Mouth: Mucous membranes are moist. Pharynx: No oropharyngeal exudate or posterior oropharyngeal erythema. Eyes: General: Right eye: No discharge. Left eye: No discharge. Conjunctiva/sclera: Conjunctivae normal. Pupils: Pupils are equal, round, and reactive to light. Cardiovascular: Rate and Rhythm: Normal rate and regular rhythm. Pulses: Normal pulses. Heart sounds: Normal heart sounds. No friction rub. No gallop. Pulmonary: Effort: Pulmonary effort is normal. No respiratory distress. Breath sounds: Normal breath sounds. No wheezing, rhonchi or rales. Chest: Chest wall: No tenderness. Abdominal: General: Bowel sounds are normal. There is no distension. Palpations: Abdomen is soft. There is no mass. Tenderness: There is abdominal tenderness. There is no guarding. Comments: Lap sites, covered Musculoskeletal: General: No swelling, tenderness or signs of injury. Cervical back: Neck supple. Right lower leg: No edema. Left lower leg: No edema. Lymphadenopathy: Cervical: No cervical adenopathy. Skin: General: Skin is warm and dry. Capillary Refill: Capillary refill takes less than 2 seconds. Coloration: Skin is pale. Skin is not jaundiced. Findings: No erythema or rash. Neurological: Mental Status: She is alert and oriented to person, place, and time. Cranial Nerves: No cranial nerve deficit. Psychiatric: Mood and Affect: Mood normal. Dr. Purvis deferred physical exam. INTAKE/OUTPUT: Intake/Output Summary (Last 24 hours) at 09/03/2023 1430 Last data filed at 09/03/2023 1120 Gross per 24 hour Intake 500 ml Output 5 ml Net 495 ml Labs Lab Results Component Value Date NA 139 06/24/2023 K 3.5 06/24/2023 CL 102 06/24/2023 CO2 28 06/24/2023 BUN 8 06/24/2023 CREATININE 0.74 06/24/2023 GLUCOSE 123 (H) 06/24/2023 CALCIUM 9.2 06/24/2023 PROT 7.7 08/30/2023 BILITOT 0.4 08/30/2023 ALKPHOS 59 08/30/2023 AST 32 08/30/2023 ALT 21 08/30/2023 Lab Results Component Value Date WBC 8.7 06/24/2023 HGB 14.6 06/24/2023 HCT 43.0 06/24/2023 MCV 89.6 06/24/2023 PLT 259 06/24/2023 Imaging No results found. Assessment and Plan: Von Willebrand disease Type 1. Underwent laparoscopic cholecystectomy this morning. Received 50 VWF:RCo IU/kg prior to surgery. Will order 30 VWF: RCo IU/kgfor tomorrow. Monitor for bleeding. Check CBC 09/03. Per Dr Silva-If unexpected/ significant bleeding is seen, the VWF can be repeated at 30 VWF: RCo IU /kg every 12 to 24 hours, and IV DDAVP can also be administered at 20 mcg daily x 2 days. S/P lap huyen. Surgery following. Please refer to Dr. Purvis's addendum for final recommendations. The patient was given the opportunity to ask questions and all questions were answered to the best of my ability. The patient agrees with the above noted plan. Thank you for allowing us to participate in this patient's care. Please call with any questions. I have spent 25 minutes preparing to see the patient, reviewing previous notes and test results, completing clinical documentation as well as with [id number] patient care, performing a medically appropriate examination, counseling / educating the patient/family/caregiver, and ordering medications, tests, or procedures. Electronically signed by CHRIS Rico CNP I have personally performed a face to face diagnostic evaluation on this patient. I have reviewed and agree with the care plan. My assessment/plan is the above Agree with plan. Pt will FU with Dr. Silva at [facility]. Dr. Daniel Rivera construction plumber for hematology team this weekend. 45 minutes reviewing previous notes, test results and face to face with the patient discussing the diagnosis and importance of compliance with the treatment plan as well as documenting on the day of the visit. [facility] Work Phone: 09-03-2023 Note [facility] Hematology Oncology Inpatient Consultation [facility] Jerrica Suggs : 1995(28 y.o.) Date: September 03, 2023 Attending: Dr. Purvis Reason for consult: vWD S/P lap huyen. Consulting - Melvin Posey MD Primary Care Physician - Nunu Cortez MD Date of Admission - 09/03/2023 9:26 AM Subjective: No chief complaint on file. HPI Jerrica Suggs is a 28 y.o. woman with Type 1 Von Willebrand disease, pancreatic cyst, IBS, tonsillectomy, and who presented for an elective lap cholecystectomy. She received a dose of Alphanate 3,330 units prior to surgery as per Dr. Silva. Doing well post op. Has nausea and abdominal pain. Discussed plan per Dr. Silva. Oncology HPI: Von Willebrand disease type I, diagnosed at age 17 at [facility], when prolonged PTT was noted in preparation for tonsillectomy. In 02/2012, patient was characterized as a DDAVP responder. - In 2012, for tonsillectomy, patient recalls having been prescribed Humate-P and Amicar. - In 2016, for her son's delivery, patient recalls having used Humate before and after delivery, and Stimate as well. Jerrica declines nasal DDAVP for her procedures in 2022 due to concern for adverse effects. - On 09/22/22, Jerrica received IV DDAVP 20 mcg prior to EGD and colonoscopy, and IV tranexamic acid 1000 mg prior to discharge. She was provided with a prescription for tranexamic acid 1300 mg PO every 8 hours (due to unavailability of aminocaproic acid 5000 mg PO q6h) for a 7-day course, which she can discontinue in a few days if no persistent bleeding. She was given a second dose of IV DDAVP 20 mcg on day 2 of the procedure. 08/23/23 Von Willebrand Panel: Ristocetin Co-Factor 76% Collagen Binding (CBA) 54% Factor VIII:C Assay 53% Von Willebrand Ag 78% RistoCetin/VWF Ratio 1.0 CBA/VWF Ratio 0.7 FVIII/VWF Ratio 0.7 Normal multimer intensity with normal distribution of multimer sizes. Platelet function screen normal. PTT 36.[address] Silva with hematology/oncology [facility] and plan is per below: - Please infuse 50 VWF:RCo IU/kg on the morning of surgery (09/03/23), then infuse a second dose at 30 VWF: RCo IU/kg on POD #2 (09/04/23). 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 IBS (irritable bowel syndrome) Vesicoureteral reflux Von Willebrand disease (HCC) Past Surgical History: Procedure Laterality Date SECTION (HISTORICAL) 2017 KIDNEY SURGERY re implanted ureters at the age of 9 months old TONSILLECTOMY (HISTORICAL) Family History Problem Relation Name Age of Onset High Blood Pressure Mother Multiple sclerosis Mother Cancer Paternal Grandmother Social History Socioeconomic History Marital status: Spouse name: Not on file Number of children: Not on file Years of education: Not on file Highest education level: Not on file Occupational History Not on file Tobacco Use Smoking status: Former Packs/day: 0.50 Years: 2.00 Additional pack years: 0.00 Total pack years: 1.00 Types: Cigarettes Quit date: 2018 Years since quittin.3 Smokeless tobacco: Never Vaping Use Vaping Use: Never used Substance and Sexual Activity Alcohol use: No Drug use: No Sexual activity: Not on file Other Topics Concern Not on file Social History Narrative Not on file Social Determinants of Health Financial Resource Strain: Not on file Food Insecurity: Not on file Transportation Needs: Not on file Physical Activity: Not on file Stress: Not on file Social Connections: Not on file Intimate Partner Violence: Not on file Housing Stability: Not on file Allergies Allergen Reactions Aspirin Other Due to having a bleeding disorder Other reaction(s): Bleeding Ibuprofen Other Due to having a bleeding disorder Nsaids Other Due to bleeding disorder. Hydrocodone Itching OKAY TO TAKE JUST TYLENOL Naproxen Due to bleeding disorder Dicyclomine Palpitations Prior to Admission medications Medication Sig Start Date End Date Taking? Authorizing Provider acetaminophen (Tylenol) 325 MG tablet Take by mouth every 4 hours as needed. Yes Historical Provider, ondansetron ODT (Zofran-ODT) 8 MG disintegrating tablet every 8 hours as needed. 06/02/22 Yes Historical Provider, promethazine (Phenergan) 12.5 MG tablet Take 12.5 mg by mouth every 6 hours as needed. 06/09/22 Yes Historical Provider, venlafaxine XR (Effexor XR) 150 MG 24 hr capsule Nightly. 05/08/23 Yes Historical Provider, venlafaxine XR (Effexor XR) 37.5 MG 24 (more content not included)... [facility] 09-03-2023 Plan of care note Problem: Knowledge Deficit Goal: Patient/family/caregiver demonstrates understanding of disease process, treatment plan, medications, and discharge instructions 09/03/20231429 by Kyara Gaines RN Outcome: Progressing 09/03/2023 143 by Kyara Gaines RN Outcome: Progressing Problem: Potential for Compromised Skin Integrity Goal: Skin Integrity is Maintained or Improved 09/03/2023 1430 by Kyara Gaines RN Outcome: Progressing 09/03/2023 1430 by Kyara Gaines RN Outcome: Progressing Goal: Nutritional status is improving 09/03/2023 1430 by Kyara Gaines RN Outcome: Progressing 09/03/2023 1430 by Kyara Gaines RN Outcome: Progressing Problem: Urinary Incontinence Goal: Perineal skin integrity is maintained or improved 09/03/2023 1430 by Kyara Gaines RN Outcome: Progressing 09/03/2023 1430 by Kyara Gaines RN Outcome: Progressing The patient is Moderately Stable - Low risk of patient condition declining or worsening [facility] 09-03-2023 Consult note Formatting of th is note is different from the original. Images from the original note were not included. [facility] Hematology Oncology Inpatient Consultation [facility] Jerrica Suggs : 1995(28 y.o.) Date: September 03, 2023 Attending: Dr. Purvis Reason for consult: vWD S/P lap huyen. Consulting - Melvin Posey MD Primary Care Physician - Nunu Cortez MD Date of Admission - 09/03/2023 9:26 AM Subjective: No chief complaint on file. HPI Jerrica Suggs is a 28 y.o. woman with Type 1 Von Willebrand disease, pancreatic cyst, IBS, tonsillectomy, and who presented for an elective lap cholecystectomy. She received a dose of Alphanate 3,330 units prior to surgery as per Dr. Silva. Doing well post op. Has nausea and abdominal pain. Discussed plan per Dr. Silva. Oncology HPI: Von Willebrand disease type I, diagnosed at age 17 at [facility], when prolonged PTT was noted in preparation for tonsillectomy. In 02/2012, patient was characterized as a DDAVP responder. - In 2012, for tonsillectomy, patient recalls having been prescribed Humate-P and Amicar. - In 2016, for her son's delivery, patient recalls having used Humate before and after delivery, and Stimate as well. Jerrica declines nasal DDAVP for her procedures in 2022 due to concern for adverse effects. - On 09/22/22, Jerrica received IV DDAVP 20 mcg prior to EGD and colonoscopy, and IV tranexamic acid 1000 mg prior to discharge. She was provided with a prescription for tranexamic acid 1300 mg PO every 8 hours (due to unavailability of aminocaproic acid 5000 mg PO q6h) for a 7-day course, which she can discontinue in a few days if no persistent bleeding. She was given a second dose of IV DDAVP 20 mcg on day 2 of the procedure. 08/23/23 Von Willebrand Panel: Ristocetin Co-Factor 76% Collagen Binding (CBA) 54% Factor VIII:C Assay 53% Von Willebrand Ag 78% RistoCetin/VWF Ratio 1.0 CBA/VWF Ratio 0.7 FVIII/VWF Ratio 0.7 Normal multimer intensity with normal distribution of multimer sizes. Platelet function screen normal. PTT 36.[address] Silva with hematology/oncology [facility] and plan is per below: - Please infuse 50 VWF:RCo IU/kg on the morning of surgery (09/03/23), then infuse a second dose at 30 VWF: RCo IU/kg on POD #2 (09/04/23). 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 IBS (irritable bowel syndrome) Vesicoureteral reflux Von Willebrand disease (HCC) Past Surgical History: Procedure Laterality Date SECTION (HISTORICAL) 2017 KIDNEY SURGERY re implanted ureters at the age of 9 months old TONSILLECTOMY (HISTORICAL) Family History Problem Relation Name Age of Onset High Blood Pressure Mother Multiple sclerosis Mother Cancer Paternal Grandmother Social History Socioeconomic History Marital status: Spouse name: Not on file Number of children: Not on file Years of education: Not on file Highest education level: Not on file Occupational History Not on file Tobacco Use Smoking status: Former Packs/day: 0.50 Years: 2.00 Additional pack years: 0.00 Total pack years: 1.00 Types: Cigarettes Quit date: 2018 Years since quittin.3 Smokeless tobacco: Never Vaping Use Vaping Use: Never used Substance and Sexual Activity Alcohol use: No Drug use: No Sexual activity: Not on file Other Topics Concern Not on file Social History Narrative Not on file Social Determinants of Health Financial Resource Strain: Not on file Food Insecurity: Not on file Transportation Needs: Not on file Physical Activity: Not on file Stress: Not on file Social Connections: Not on file Intimate Partner Violence: Not on file Housing Stability: Not on file Allergies Allergen Reactions Aspirin Other Due to having a bleeding disorder Other reaction(s): Bleeding Ibuprofen Other Due to having a bleeding disorder Nsaids Other Due to bleeding disorder. Hydrocodone Itching OKAY TO TAKE JUST TYLENOL Naproxen Due to bleeding disorder Dicyclomine Palpitations Prior to Admission medications Medication Sig Start Date End Date Taking? Authorizing Provider acetaminophen (Tylenol) 325 MG tablet Take by mouth every 4 hours as needed. Yes Historical Provider, ondansetron ODT (Zofran-ODT) 8 MG disintegrating tablet every 8 hours as needed. 06/02/22 Yes Historical Provider, promethazine (Phenergan) 12.5 MG tablet Take 12.5 mg by mouth every 6 hours as needed. 06/09/22 Yes Historical Provider, venlafaxine XR (Effexor XR) 150 MG 24 hr capsule Nightly. 05/08/23 Yes Historical Provider, venlafaxine XR (Effexor XR) 37.5 MG 24 hr capsule Take 37.5 mg by mouth Nightly. Do not crush or chew. Yes Historical Provider, Xanax 0.25 MG tablet 1 tablet Orally daily prn anxiety for 30 days 07/01/23 Yes Historical Provider, levonorgestrel (Mirena, 52 MG,) 20 MCG/DAY IUD 1 each by IntraUTERine route Once. Historical Provider, Multiple Vitamin (multivitamin) capsule Take 1 capsule by mouth daily. Historical Provider, mupirocin (Bactroban) 2 % ointment every 12 hours. 01/05/22 Historical Provider, Review of Systems Constitutional: Negative for activity change, appetite change, chills, diaphoresis, fatigue, fever and unexpected weight change. HENT: Negative for dental problem, facial swelling, mouth sores, nosebleeds, trouble swallowing and voice change. Eyes: Negative for photophobia and visual disturbance. Respiratory: Negative for cough, shortness of breath and wheezing. Cardiovascular: Negative for chest pain and leg swelling. Gastrointestinal: Positive for abdominal pain. Negative for abdominal distention, blood in stool, constipation, diarrhea, nausea and vomiting. IBS Endocrine: Negative for polydipsia, polyphagia and polyuria. Genitourinary: Negative for difficulty urinating and dysuria. Musculoskeletal: Negative for arthralgias, back pain and gait problem. Skin: Negative for color change, rash and wound. Neurological: Negative for dizziness, seizures, speech difficulty, weakness and headaches. Hematological: Negative for adenopathy. Bruises/bleeds easily. Psychiatric/Behavioral: Negative for agitation and confusion. The patient is nervous/anxious. Objective: ECOG PS: 0/1 Vitals: 09/03/23 1245 09/03/23 1300 09/03/23 1315 09/03/23 1330 BP: 123/79 124/74 92/75 117/81 BP Location: Patient Position: Pulse: 89 86 94 86 Resp: 16 15 15 15 Temp: 36.3 C (97.3 F) TempSrc: Temporal SpO2: 99% 97% 98% 97% Weight: Height: Wt Readings from Last 3 Encounters: 09/03/23 71.6 kg (157 lb 13.6 oz) 08/30/23 71.6 kg (157 lb 14.4 oz) 07/05/23 68.5 kg (151 lb) Physical Exam Constitutional: Appearance: Normal appearance. She is not toxic-appearing or diaphoretic. HENT: Head: Normocephalic and atraumatic. Right Ear: External ear normal. Left Ear: External ear normal. Nose: Nose normal. No rhinorrhea. Mouth/Throat: Mouth: Mucous membranes are moist. Pharynx: No oropharyngeal exudate or posterior oropharyngeal erythema. Eyes: General: Right eye: No discharge. Left eye: No discharge. Conjunctiva/sclera: Conjunctivae normal. Pupils: Pupils are equal, round, and reactive to light. Cardiovascular: Rate and Rhythm: Normal rate and regular rhythm. Pulses: Normal pulses. Heart sounds: Normal heart sounds. No friction rub. No gallop. Pulmonary: Effort: Pulmonary effort is normal. No respiratory distress. Breath sounds: Normal breath sounds. No wheezing, rhonchi or rales. Chest: Chest wall: No tenderness. Abdominal: General: Bowel sounds are normal. There is no distension. Palpations: Abdomen is soft. There is no mass. Tenderness: There is abdominal tenderness. There is no guarding. Comments: Lap sites, covered Musculoskeletal: General: No swelling, tenderness or signs of injury. Cervical back: Neck supple. Right lower leg: No edema. Left lower leg: No edema. Lymphadenopathy: Cervical: No cervical adenopathy. Skin: General: Skin is warm and dry. Capillary Refill: Capillary refill takes less than 2 seconds. Coloration: Skin is pale. Skin is not jaundiced. Findings: No erythema or rash. Neurological: Mental Status: She is alert and oriented to person, place, and time. Cranial Nerves: No cranial nerve deficit. Psychiatric: Mood and Affect: Mood normal. Dr. Purvis deferred physical exam. INTAKE/OUTPUT: Intake/Output Summary (Last 24 hours) at 09/03/2023 1430 Last data filed at 09/03/2023 1120 Gross per 24 hour Intake 500 ml Output 5 ml Net 495 ml Labs Lab Results Component Value Date NA 139 06/24/2023 K 3.5 06/24/2023 CL 102 06/24/2023 CO2 28 06/24/2023 BUN 8 06/24/2023 CREATININE 0.74 06/24/2023 GLUCOSE 123 (H) 06/24/2023 CALCIUM 9.2 06/24/2023 PROT 7.7 08/30/2023 BILITOT 0.4 08/30/2023 ALKPHOS 59 08/30/2023 AST 32 08/30/2023 ALT 21 08/30/2023 Lab Results Component Value Date WBC 8.7 06/24/2023 HGB 14.6 06/24/2023 HCT 43.0 06/24/2023 MCV 89.6 06/24/2023 PLT 259 06/24/2023 Imaging No results found. Assessment and Plan: Von Willebrand disease Type 1. Underwent laparoscopic cholecystectomy this morning. Received 50 VWF:RCo IU/kg prior to surgery. Will order 30 VWF: RCo IU/kgfor tomorrow. Monitor for bleeding. Check CBC 09/03. Per Dr Silva-If unexpected/ significant bleeding is seen, the VWF can be repeated at 30 VWF: RCo IU /kg every 12 to 24 hours, and IV DDAVP can also be administered at 20 mcg daily x 2 days. S/P lap huyen. Surgery following. Please refer to Dr. Purvis's addendum for final recommendations. The patient was given the opportunity to ask questions and all questions were answered to the best of my ability. The patient agrees with the above noted plan. Thank you for allowing us to participate in this patient's care. Please call with any questions. I have spent 25 minutes preparing to see the patient, reviewing previous notes and test results, completing clinical documentation as well as with [id number] patient care, performing a medically appropriate examination, counseling / educating the patient/family/caregiver, and ordering medications, tests, or procedures. Electronically signed by CHRIS Rico CNP I have personally performed a face to face diagnostic evaluation on this patient. I have reviewed and agree with the care plan. My assessment/plan is the above Agree with plan. Pt will FU with Dr. Silva at [facility]. Dr. Daniel iRvera construction plumber for hematology team this weekend. 45 minutes reviewing previous notes, test results and face to face with the patient discussing the diagnosis and importance of compliance with the treatment plan as well as documenting on the day of the visit. documented in this encounter [facility] 09-03-2023 Miscellaneous Notes Problem: Knowledge Deficit Goal: Patient/family/caregiver demonstrates understanding of disease process, treatment plan, medications, and discharge instructions 09/03/2023 1430 by Kyaar Gaines RN Outcome: Progressing 09/03/2023 1430 by Kyara Gaines RN Outcome: Progressing Problem: Potential for Compromised Skin Integrity Goal: Skin Integrity is Maintained or Improved 09/03/2023 1430 by Kyara Gaines RN Outcome: Progressing 09/03/2023 1430 by Kyara Gaines RN Outcome: Progressing Goal: Nutritional status is improving 09/03/2023 1430 by Kyara Gaines RN Outcome: Progressing 09/03/2023 1430 by Kyara Gaines RN Outcome: Progressing Problem: Urinary Incontinence Goal: Perineal skin integrity is maintained or improved 09/03/2023 1430 by Kyara Gaines RN Outcome: Progressing 09/03/2023 1430 by Kyara Gaines RN Outcome: Progressing The patient is Moderately Stable - Low risk of patient condition declining or worsening Called report to H5 RN. Called and updated patient's mother. Mother updated and awaiting a room assignment Images from the original note were not included. MELVIN POSEY MD , FACS, [facility] MINIMALLY INVASIVE & METABOLIC / BARIATRIC SURGERY [facility] OPERATIVE REPORT 09/03/2023 PATIENT: Jerrica Suggs DATE OF : 1995 - PROCEDURE: 1. LAPAROSCOPIC CHOLECYSTECTOMY ([id number]) SURGEON: Melvin Posey MD GYN PHYSICIAN: Tawny Leija MD PRE-OPERATIVE DIAGNOSES: Chronic cholecystitis Right upper quadrant pain POST-OPERATIVE DIAGNOSES: Same ANESTHESIA: General endotracheal Transversus Abdominis plane block FLUIDS: Crystalloid ESTIMATED BLOOD LOSS: Minimal URINE OUTPUT: Not recorded PREOPERATIVE MEDICATIONS: Pre-operative IV antibiotics INDICATIONS FOR PROCEDURE: The patient is a 28 y.o. female with symptomatic gallbladder disease. The patient was evaluated and laparoscopic cholecystectomy was recommended. The risks, benefits and options of the procedure and additional possible interventions were reviewed and all questions were answered to the patient's satisfaction. DESCRIPTION OF PROCEDURE: The patient was transported to the operating room and identified by name and number. The patient was placed on the operating room table in the supine position and general endotracheal anesthesia was administered by members of the anesthesia team. Following placement of sequential compression devices, the patients extremities were positioned and protected. The abdomen was prepped and draped in standard surgical fashion. An operating room team time out was performed confirming the identity of the patient and the planned procedure. The abdominal cavity was accessed in the left upper quadrant at John's point using a 5-mm optical trocar. Pneumoperitoneum was established and a brief exploration of the abdominal cavity was performed. Additional trocars were carefully placed under direct visualization. Two 5-mm trocars were placed in the right upper quadrant and one 10-mm trocar near the umbilicus. Graspers were introduced, and the gallbladder was grasped and retracted cephalad and laterally exposing the triangle of Calot. Careful dissection using L-hook electrocautery and [place] dissectors was performed isolating the cystic duct and the cystic artery. These structures were clipped twice on the patient side and once on the specimen side and divided using the laparoscopic scissors. The remainder of the gallbladder was carefully taken off the liver bed using L-hook electrocautery. Following this, it was placed in a specimen bag and removed through the periumbilical incision. At the end of the operation, the trocars were carefully removed under direct visualization and the pneumoperitoneum was evacuated. Fascial defect were closed using 0-Vycril suture for 10-mm trocar sites and the skin incisions were closed using 4-0 Vycril suture in subcuticular fashion. This was followed by steri strips and sterile dressings. The needle, sponge and instrument counts were correct. The patient tolerated the procedure and the anesthesia well without any major complications. The patients was transported to the post-anesthesia care unit in stable condition. I was present for the entire duration of the procedure. documented in this encounter [facility] 09-03-2023 Note Formatting of this n ote might be different from the original. Called report to H5 RN. Called and updated patient's mother. [facility] 09-03-2023 Note Formatting of this n ote might be different from the original. Called report to H5 RN. Called and updated patient's mother. [facility] 09-03-2023 Note Formatting of this n ote might be different from the original. Mother updated and awaiting a room assignment [facility] 09-03-2023 Note Formatting of this n ote might be different from the original. Mother updated and awaiting a room assignment [facility] 09-03-2023 Note Patient: Jerrica woodward Procedure Summary Date: 09/03/23 Room / Location: [address] Operating Room Anesthesia Start: 1031 Anesthesia Stop: 113 Procedure: LAPAROSCOPIC CHOLECYSTECTOMY (Abdomen) Diagnosis: Epigastric pain (EPIGASTRIC PAIN) Surgeons: Melvin Posey MD Responsible Provider: John Huang MD Anesthesia Type: general, regional ASA Status: 2 Anesthesia Type: general, regional Vitals Value Taken Time BP 126/88 09/03/23 1145 Temp 36.6 ?C (97.8 ?F) 09/03/23 1134 Pulse 92 09/03/23 1148 Resp 20 09/03/23 1134 SpO2 100 % 09/03/23 1148 Vitals shown include unfiled device data. Anesthesia Post Evaluation Patient location during evaluation: PACU Patient participation: complete - patient participated Level of consciousness: awake and alert Pain management: satisfactory to patient Airway patency: patent Dental Injury: no Cardiovascular status: acceptable, blood pressure returned to baseline and hemodynamically stable Respiratory status: acceptable and spontaneous ventilation Hydration status: euvolemic Nausea/Vomiting: controlled No notable events documented. Patient can be discharged once all PACU criteria has been met. [facility] 09-03-2023 Note Patient: Jerrica woodward Procedure Summary Date: 09/03/23 Room / Location: [facility] OR [address] [place] [address] Operating Room Anesthesia Start: 1031 Anesthesia Stop: 113 Procedure: LAPAROSCOPIC CHOLECYSTECTOMY (Abdomen) Diagnosis: Epigastric pain (EPIGASTRIC PAIN) Surgeons: Melvin Posey MD Responsible Provider: John Huang MD Anesthesia Type: general, regional ASA Status: 2 Anesthesia Type: general, regional Vitals Value Taken Time BP 126/88 09/03/23 1145 Temp 36.6 ?C (97.8 ?F) 09/03/23 1134 Pulse 92 09/03/23 1148 Resp 20 09/03/23 1134 SpO2 100 % 09/03/23 1148 Vitals shown include unfiled device data. Anesthesia Post Evaluation Patient location during evaluation: PACU Patient participation: complete - patient participated Level of consciousness: awake and alert Pain management: satisfactory to patient Multimodal analgesia pain management approach Airway patency: patent Two or more strategies used to mitigate risk of obstructive sleep apnea Cardiovascular status: acceptable and hemodynamically stable Respiratory status: acceptable Hydration status: acceptable No notable events documented. MIPS #430 PONV Patient received an inhalational anesthetic (4554F) Patient exhibits three or more risk factors for PONV (4556F) Patient received at aset 2 prophylactic Rx PONV anti-emtic agents of different classes preop and/or intraop (G9775) MIPS # 424 Perioperative Temperature Management Anesthesia time was 60 minutes or longer (4255F) Anesthesai administered was General (inhalational or TIVA) or Neuraxial block (X0424) At least one body temperature greater than 95.8F/35.5C achieved within the 30 mins immediately prior to or the 15 minutes immediately following anesthesia end time (G9771) MIPS #477 Multimodal Pain Management Not emergent case Patient was administered multimodal pain management (two or more drugs and/or interventions excluding systemic opioids) in the periopeartive period occurring at some time between 6 hours prior to anesthesia start time until discharged from PACU (G2148) MIPS #404 Anesthesiology Smoking Abstinence The patient is not a current smoker (e.g. cigarette, cigar, pipe, e-cigarette/vaping/marijuana) If no stop here (XX404) I completed my handoff to the receiving clinician during which we: 1. Identified the patient 2. Identified the responsible provider 3. Reviewed the pertinent medical history 4. Discussed the surgical course 5. Reviewed intra-op anesthesia management and issues during anesthesia 6. Set expectations for post-procedure period 7. Allowed opportunity for questions and acknowledgement of understanding. [facility] 09-03-2023 Note Airway Date/Time: 09/03/2023 10:39 AM Urgency: scheduled Airway not difficult General Information and Staff Patient location during procedure: Procedural Resident/REGULATORY INTERNSHIP: Marco Antonio Stewart CRNA Performed: REGULATORY INTERNSHIP Indications and Patient Condition Indications for airway management: airway protection and anesthesia Sedation level: Asleep Preoxygenated: yes Patient position: sniffing MILS maintained throughout Mask difficulty assessment: 1 - vent by mask Final Airway Details Final airway type: endotracheal airway Successful airway: ETT Cuffed: yes Successful intubation technique: direct laryngoscopy Endotracheal tube insertion site: oral Blade: Bustamante Blade size: #3 ETT size (mm): 7.0 Cormack-Lehane Classification: grade I - full view of glottis Placement verified by: capnometry Measured from: lips ETT to lips (cm): 21 Number of attempts at approach: 1 [facility] 09-03-2023 Note Peripheral Block Time Out: 09/03/2023 10:35 AM Patient location during procedure: Procedural Start time: 09/03/2023 10:35 AM End time: 09/03/2023 10:40 AM Reason for block: at surgeon's request and post-op pain management Staffing Performed: REGULATORY INTERNSHIP Resident/REGULATORY INTERNSHIP: CHRIS Durbin CRNA Preanesthetic Checklist Completed: patient identified, IV checked, site marked, risks and benefits discussed, surgical consent, monitors and equipment checked, pre-op evaluation and timeout performed Region: [place] Primary: TAP (Bupivacaine 0.375%/ Epi 1:200,000/ Dex 0.1mg/mL 40ml divided evenly bilateral) Secondary: Upper rectus (Bupivacaine 0.375%/ Epi 1:200,000/ Dex 0.1mg/mL 20ml divided evenly bilateral) Peripheral Block Patient position: supine Prep: ChloraPrep Patient monitoring: heart rate, shelter monitor, continuous pulse ox and continuous capnometry O2: ETT/LMA Laterality: bilateral Injection technique: single-shot Guidance: ultrasound guided -image retained in chart, tip of the needle identified by ultraound during injection. Needle Needle: 21G X 110 mm Additional Notes 09/03/2023 10:35 AM Assessment Injection assessment: negative aspiration for heme, no paresthesia on injection and incremental injection Heart rate change: no Slow fractionated injection: yes Required Documentation: Relevant anatomy identified (Nerves, Vessels, Muscles), Negative for blood on aspiration, Local anesthetic injected incrementally with intermittent aspiration every 5 mL, Normal resistance with injection, No EKG changes noted, No symptoms of toxicity, Local anesthetic spread visualized around nerves or plane. and Local anesthetic injected without difficultyMedications cqlAAHCIttlew-zmigxibswxa-grshgq hrine (TAP) syringe - Injection 60 mL - 09/03/2023 10:35:00 AM [facility] 09-03-2023 Note Formatting of this n ote might be different from the original. Images from the original note were not included. MELVIN POSEY MD , FACS, [facility] MINIMALLY INVASIVE & METABOLIC / BARIATRIC SURGERY [facility] OPERATIVE REPORT 09/03/2023 PATIENT: Jerrica Suggs DATE OF : 1995 - PROCEDURE: 1. LAPAROSCOPIC CHOLECYSTECTOMY ([id number]) SURGEON: Melvin Posey MD GYN PHYSICIAN: Tawny Leija MD PRE-OPERATIVE DIAGNOSES: Chronic cholecystitis Right upper quadrant pain POST-OPERATIVE DIAGNOSES: Same ANESTHESIA: General endotracheal Transversus Abdominis plane block FLUIDS: Crystalloid ESTIMATED BLOOD LOSS: Minimal URINE OUTPUT: Not recorded PREOPERATIVE MEDICATIONS: Pre-operative IV antibiotics INDICATIONS FOR PROCEDURE: The patient is a 28 y.o. female with symptomatic gallbladder disease. The patient was evaluated and laparoscopic cholecystectomy was recommended. The risks, benefits and options of the procedure and additional possible interventions were reviewed and all questions were answered to the patient's satisfaction. DESCRIPTION OF PROCEDURE: The patient was transported to the operating room and identified by name and number. The patient was placed on the operating room table in the supine position and general endotracheal anesthesia was administered by members of the anesthesia team. Following placement of sequential compression devices, the patients extremities were positioned and protected. The abdomen was prepped and draped in standard surgical fashion. An operating room team time out was performed confirming the identity of the patient and the planned procedure. The abdominal cavity was accessed in the left upper quadrant at John's point using a 5-mm optical trocar. Pneumoperitoneum was established and a brief exploration of the abdominal cavity was performed. Additional trocars were carefully placed under direct visualization. Two 5-mm trocars were placed in the right upper quadrant and one 10-mm trocar near the umbilicus. Graspers were introduced, and the gallbladder was grasped and retracted cephalad and laterally exposing the triangle of Calot. Careful dissection using L-hook electrocautery and [place] dissectors was performed isolating the cystic duct and the cystic artery. These structures were clipped twice on the patient side and once on the specimen side and divided using the laparoscopic scissors. The remainder of the gallbladder was carefully taken off the liver bed using L-hook electrocautery. Following this, it was placed in a specimen bag and removed through the periumbilical incision. At the end of the operation, the trocars were carefully removed under direct visualization and the pneumoperitoneum was evacuated. Fascial defect were closed using 0-Vycril suture for 10-mm trocar sites and the skin incisions were closed using 4-0 Vycril suture in subcuticular fashion. This was followed by steri strips and sterile dressings. The needle, sponge and instrument counts were correct. The patient tolerated the procedure and the anesthesia well without any major complications. The patients was transported to the post-anesthesia care unit in stable condition. I was present for the entire duration of the procedure. T [facility] 09-03-2023 Note Formatting of this n ote might be different from the original. Images from the original note were not included. MELVIN POSEY MD , FACS, [facility] MINIMALLY INVASIVE & METABOLIC / BARIATRIC SURGERY [facility] OPERATIVE REPORT 09/03/2023 PATIENT: Jerrica Suggs DATE OF : 1995 - PROCEDURE: 1. LAPAROSCOPIC CHOLECYSTECTOMY ([id number]) SURGEON: Melvin Posey MD GYN PHYSICIAN: Tawny Leija MD PRE-OPERATIVE DIAGNOSES: Chronic cholecystitis Right upper quadrant pain POST-OPERATIVE DIAGNOSES: Same ANESTHESIA: General endotracheal Transversus Abdominis plane block FLUIDS: Crystalloid ESTIMATED BLOOD LOSS: Minimal URINE OUTPUT: Not recorded PREOPERATIVE MEDICATIONS: Pre-operative IV antibiotics INDICATIONS FOR PROCEDURE: The patient is a 28 y.o. female with symptomatic gallbladder disease. The patient was evaluated and laparoscopic cholecystectomy was recommended. The risks, benefits and options of the procedure and additional possible interventions were reviewed and all questions were answered to the patient's satisfaction. DESCRIPTION OF PROCEDURE: The patient was transported to the operating room and identified by name and number. The patient was placed on the operating room table in the supine position and general endotracheal anesthesia was administered by members of the anesthesia team. Following placement of sequential compression devices, the patients extremities were positioned and protected. The abdomen was prepped and draped in standard surgical fashion. An operating room team time out was performed confirming the identity of the patient and the planned procedure. The abdominal cavity was accessed in the left upper quadrant at John's point using a 5-mm optical trocar. Pneumoperitoneum was established and a brief exploration of the abdominal cavity was performed. Additional trocars were carefully placed under direct visualization. Two 5-mm trocars were placed in the right upper quadrant and one 10-mm trocar near the umbilicus. Graspers were introduced, and the gallbladder was grasped and retracted cephalad and laterally exposing the triangle of Calot. Careful dissection using L-hook electrocautery and [place] dissectors was performed isolating the cystic duct and the cystic artery. These structures were clipped twice on the patient side and once on the specimen side and divided using the laparoscopic scissors. The remainder of the gallbladder was carefully taken off the liver bed using L-hook electrocautery. Following this, it was placed in a specimen bag and removed through the periumbilical incision. At the end of the operation, the trocars were carefully removed under direct visualization and the pneumoperitoneum was evacuated. Fascial defect were closed using 0-Vycril suture for 10-mm trocar sites and the skin incisions were closed using 4-0 Vycril suture in subcuticular fashion. This was followed by steri strips and sterile dressings. The needle, sponge and instrument counts were correct. The patient tolerated the procedure and the anesthesia well without any major complications. The patients was transported to the post-anesthesia care unit in stable condition. I was present for the entire duration of the procedure. [facility] 09-03-2023 Attending History and physical note H&P reviewed. The patient was examined and there are no changes to the H&P. Discussed with anesthesia personnel administration of blood products per hematology Source Note - Nasima Honeycutt APRN - CHILD DAY CARE TEACHER - 08/30/2023 1:00 PM EDT Comprehensive Pre Surgical History and Physical ? Name: Jerrica Suggs : 1995 (Age-28 y.o.) Date of Service: Pt seen/examined on 08/30/2023 Procedure Information Date/Time: 09/03/23 1130 Procedure: LAPAROSCOPIC CHOLECYSTECTOMY POSSIBLE OPEN (Abdomen) - 90 MIN Location: [facility] OR Operating Room Surgeons: Melvin Posey MD Chief Complaint: EPIGASTRIC PAIN ASSESSMENT/PLAN: Patient is considered low/intermediate risk for this intermediate level 1 risk procedure/surgery () with no reducible risk factors. Based on the above evaluation, the benefits of the planned procedure likely exceed the risks. The patient is medically optimized to proceed with the planned procedure without any further cardiopulmonary testing. 1) EPIGASTRIC PAIN - Managed per surgery Phenergan Zofran 2) Anxiety/ depression Xanax prn Effexor 3) Hx Von Willebrand Has needed Factor 5 and Amicar in the past after surgery Reviewed recent CBC Hepatic panel drawn per surgeon's orders in PAT Visit Type: Pre-Admission Testing Visit Labs Ordered: As ordered by surgeon Sleep Referral Ordered: NO - NEGATIVE SCREEN PER SLEEP REFERRAL PROTOCOL Total time spent (which include face to face and non face to face encounters) : 30 minutes Toxic drug monitoring/narrow therapeutic index drug monitoring : # Drug name : na # Route administered : na # Method of monitoring : na PAT Protocol referenced includes: 1. Anesthesia Lab Protocol Orders 2. Perioperative Cardiovascular Risk Assessment 3. Anesthesia Assessment 4. Pain Assessment and Acute Pain Service Consult (if appropriate) 5. Medical Clearance/Consult from Internal Medicine (IMS) 6. Shower/Wash Order (for designated surgeries) 7. ELIZABETH Screen and Sleep Clinic Referral (if appropriate) Patient did not name a surrogate decision-maker or provide an advance care plan History Of Present Illness: 28 y.o. female who we are asked to see/evaluate by Dr. Posey for pre-operative evaluation prior to above procedure . Do you have a history of chronic opioid use? NO ? Denies history of NM, CAD, CHF, TIA, CVA Past Medical History: Past Medical History: No date: Acid reflux No date: Disease of blood and blood forming organ No date: IBS (irritable bowel syndrome) No date: No date: Vesicoureteral reflux No date: Von Willebrand disease (HCC) Past Surgical History: Past Surgical History: No date: SECTION (HISTORICAL) Comment: 2016 No date: KIDNEY SURGERY Comment: re implanted ureters at the age of 9 months old No date: TONSILLECTOMY (HISTORICAL) Medications Prior to Admission: Prior to Admission medications Medication Sig Start Date End Date Taking? Authorizing Provider acetaminophen (Tylenol) 325 MG tablet Take by mouth. Historical Provider, Multiple Vitamin (multivitamin) capsule Take 1 capsule by mouth daily. Historical Provider, mupirocin (Bactroban) 2 % ointment every 12 hours. 01/05/22 Historical Provider, ondansetron ODT (Zofran-ODT) 8 MG disintegrating tablet 06/02/22 Historical ProviderMD promethazine (Phenergan) 12.5 MG tablet Take 12.5 mg by mouth every 6 hours as needed. 06/09/22 Historical Provider, venlafaxine XR (Effexor XR) 150 MG 24 hr capsule 05/08/23 Historical Provider, venlafaxine XR (Effexor XR) 37.5 MG 24 hr capsule Take 37.5 mg by mouth daily. Do not crush or chew. Historical Provider, Xanax 0.25 MG tablet 1 tablet Orally daily prn anxiety for 30 days 07/01/23 Historical Provider, CHRONIC NARCOTIC USE: No Allergies: Aspirin, Ibuprofen, Nsaids, Hydrocodone, Naproxen, and Dicyclomine If patient has opioid allergy, is it okay to take Acetaminophen: Yes Social History: TOBACCO: reports that she quit smoking about 5 years ago. Her smoking use included cigarettes. She has a 1 pack-year smoking history. She has never used smokeless tobacco. ETOH: reports no history of alcohol use. Social History Substance and Sexual Activity Drug Use No Family History: Family History Problem Relation Name Age of Onset High Blood Pressure Mother Multiple sclerosis Mother Cancer Paternal Grandmother REVIEW OF SYSTEMS: Review of Systems Constitutional: Negative for chills and fever. HENT: Negative for trouble swallowing. Respiratory: Negative for cough and shortness of breath. Cardiovascular: Negative for chest pain and leg swelling. Gastrointestinal: Negative for abdominal pain, nausea and vomiting. Skin: Negative for rash. Neurological: Negative for seizures and weakness. Physical Exam: Physical Exam Constitutional: Appearance: Normal appearance. HENT: Head: Normocephalic and atraumatic. Mouth/Throat: Mouth: Mucous membranes are moist. Pharynx: Oropharynx is clear. Eyes: Pupils: Pupils are equal, round, and reactive to light. Cardiovascular: Rate and Rhythm: Normal rate. Pulses: Normal pulses. Pulmonary: Effort: Pulmonary effort is normal. Abdominal: General: Bowel sounds are normal. Musculoskeletal: General: Normal range of motion. Cervical back: Normal range of motion. Skin: General: Skin is warm and dry. Capillary Refill: Capillary refill takes less than 2 seconds. Neurological: General: No focal deficit present. Mental Status: She is alert and oriented to person, place, and time. Psychiatric: Behavior: Behavior normal. Vitals: Vitals Value Taken Time BP 100/63 08/30/23 1304 Temp 36.6 C (97.8 F) 08/30/23 1304 Pulse 106 08/30/23 1304 Resp 16 08/30/23 1304 SpO2 97 % 08/30/23 1304 Labs: Collected in [facility] José Luis's Simple Cardiac Risk Index: JOSÉ LUIS'S SIMPLE CARDIAC RISK SCORE: 0 Interpretation: 0 Points Class I 0.5% 1 Point Class II 1.3% 2 Points Class III 3.6% 3+ Points Class IV 9.1% [facility] Pain Score: Pain Score: 5 - Moderate pain Postop Pain Management Plan (Pain consult ordered?): Pain consult not indicated at this time ? EKG: not indicated per [facility] protocol ECHO and EF:None on file No components found for: LVEF, LVEFMODE METS >4 Electronically signed by: CHRIS Hancock CNP Date: 08/30/2023 at 1:24 PM [facility]: 09-03-2023 Note H&P reviewed. The pa livan was examined and there are no changes to the H&P. Discussed with anesthesia personnel administration of blood products per hematology [facility] 09-03-2023 History and physical note H&P reviewed. The patient was examined and there are no changes to the H&P. Discussed with anesthesia personnel administration of blood products per hematology Source Note - CHIRS Hancock CNP - 08/30/2023 1:00 PM EDT Comprehensive Pre Surgical History and Physical ? Name: Jerrica Suggs : 1995 (Age-28 y.o.) Date of Service: Pt seen/examined on 08/30/2023 Procedure Information Date/Time: 09/03/23 1130 Procedure: LAPAROSCOPIC CHOLECYSTECTOMY POSSIBLE OPEN (Abdomen) - 90 MIN Location: [facility] OR Operating Room Surgeons: Melvin Posey MD Chief Complaint: EPIGASTRIC PAIN ASSESSMENT/PLAN: Patient is considered low/intermediate risk for this intermediate level 1 risk procedure/surgery () with no reducible risk factors. Based on the above evaluation, the benefits of the planned procedure likely exceed the risks. The patient is medically optimized to proceed with the planned procedure without any further cardiopulmonary testing. 1) EPIGASTRIC PAIN - Managed per surgery Phenergan Zofran 2) Anxiety/ depression Xanax prn Effexor 3) Hx Von Willebrand Has needed Factor 5 and Amicar in the past after surgery Reviewed recent CBC Hepatic panel drawn per surgeon's orders in PAT Visit Type: Pre-Admission Testing Visit Labs Ordered: As ordered by surgeon Sleep Referral Ordered: NO - NEGATIVE SCREEN PER SLEEP REFERRAL PROTOCOL Total time spent (which include face to face and non face to face encounters) : 30 minutes Toxic drug monitoring/narrow therapeutic index drug monitoring : # Drug name : na # Route administered : na # Method of monitoring : na PAT Protocol referenced includes: 1. Anesthesia Lab Protocol Orders 2. Perioperative Cardiovascular Risk Assessment 3. Anesthesia Assessment 4. Pain Assessment and Acute Pain Service Consult (if appropriate) 5. Medical Clearance/Consult from Internal Medicine (IMS) 6. Shower/Wash Order (for designated surgeries) 7. ELIZABETH Screen and Sleep Clinic Referral (if appropriate) Patient did not name a surrogate decision-maker or provide an advance care plan History Of Present Illness: 28 y.o. female who we are asked to see/evaluate by Dr. Posey for pre-operative evaluation prior to above procedure . Do you have a history of chronic opioid use? NO ? Denies history of NM, CAD, CHF, TIA, CVA Past Medical History: Past Medical History: No date: Acid reflux No date: Disease of blood and blood forming organ No date: IBS (irritable bowel syndrome) No date: No date: Vesicoureteral reflux No date: Von Willebrand disease (HCC) Past Surgical History: Past Surgical History: No date: SECTION (HISTORICAL) Comment: 2016 No date: KIDNEY SURGERY Comment: re implanted ureters at the age of 9 months old No date: TONSILLECTOMY (HISTORICAL) Medications Prior to Admission: Prior to Admission medications Medication Sig Start Date End Date Taking? Authorizing Provider acetaminophen (Tylenol) 325 MG tablet Take by mouth. Historical Provider, Multiple Vitamin (multivitamin) capsule Take 1 capsule by mouth daily. Historical Provider, mupirocin (Bactroban) 2 % ointment every 12 hours. 01/05/22 Historical Provider, ondansetron ODT (Zofran-ODT) 8 MG disintegrating tablet 06/02/22 Historical Provider, promethazine (Phenergan) 12.5 MG tablet Take 12.5 mg by mouth every 6 hours as needed. 06/09/22 Historical Provider, venlafaxine XR (Effexor XR) 150 MG 24 hr capsule 05/08/23 Historical Provider, venlafaxine XR (Effexor XR) 37.5 MG 24 hr capsule Take 37.5 mg by mouth daily. Do not crush or chew. Historical Provider, Xanax 0.25 MG tablet 1 tablet Orally daily prn anxiety for 30 days 07/01/23 Historical Provider, CHRONIC NARCOTIC USE: No Allergies: Aspirin, Ibuprofen, Nsaids, Hydrocodone, Naproxen, and Dicyclomine If patient has opioid allergy, is it okay to take Acetaminophen: Yes Social History: TOBACCO: reports that she quit smoking about 5 years ago. Her smoking use included cigarettes. She has a 1 pack-year smoking history. She has never used smokeless tobacco. ETOH: reports no history of alcohol use. Social History Substance and Sexual Activity Drug Use No Family History: Family History Problem Relation Name Age of Onset High Blood Pressure Mother Multiple sclerosis Mother Cancer Paternal Grandmother REVIEW OF SYSTEMS: Review of Systems Constitutional: Negative for chills and fever. HENT: Negative for trouble swallowing. Respiratory: Negative for cough and shortness of breath. Cardiovascular: Negative for chest pain and leg swelling. Gastrointestinal: Negative for abdominal pain, nausea and vomiting. Skin: Negative for rash. Neurological: Negative for seizures and weakness. Physical Exam: Physical Exam Constitutional: Appearance: Normal appearance. HENT: Head: Normocephalic and atraumatic. Mouth/Throat: Mouth: Mucous membranes are moist. Pharynx: Oropharynx is clear. Eyes: Pupils: Pupils are equal, round, and reactive to light. Cardiovascular: Rate and Rhythm: Normal rate. Pulses: Normal pulses. Pulmonary: Effort: Pulmonary effort is normal. Abdominal: General: Bowel sounds are normal. Musculoskeletal: General: Normal range of motion. Cervical back: Normal range of motion. Skin: General: Skin is warm and dry. Capillary Refill: Capillary refill takes less than 2 seconds. Neurological: General: No focal deficit present. Mental Status: She is alert and oriented to person, place, and time. Psychiatric: Behavior: Behavior normal. Vitals: Vitals Value Taken Time BP 100/63 08/30/23 1304 Temp 36.6 C (97.8 F) 08/30/23 1304 Pulse 106 08/30/23 1304 Resp 16 08/30/23 1304 SpO2 97 % 08/30/23 1304 Labs: Collected in [facility] José Luis's Simple Cardiac Risk Index: JOSÉ LUIS'S SIMPLE CARDIAC RISK SCORE: 0 Interpretation: 0 Points Class I 0.5% 1 Point Class II 1.3% 2 Points Class III 3.6% 3+ Points Class IV 9.1% [facility] Pain Score: Pain Score: 5 - Moderate pain Postop Pain Management Plan (Pain consult ordered?): Pain consult not indicated at this time ? EKG: not indicated per [facility] protocol ECHO and EF:None on file No components found for: LVEF, LVEFMODE METS >4 Electronically signed by: Nasima Honeycutt APRN - TREV Date: 08/30/2023 at 1:24 PM documented in this encounter [facility] 09-02-2023 Note Basic chart review c ompleted in preparation for upcoming procedure. Standard preoperative orders placed for DOS per anesthesia protocol. Allergies: Aspirin, Ibuprofen, Nsaids, Hydrocodone, Naproxen, and Dicyclomine Social History: TOBACCO: reports that she quit smoking about 5 years ago. Her smoking use included cigarettes. She has a 1 pack-year smoking history. She has never used smokeless tobacco. ETOH: reports no history of alcohol use. Social History Substance and Sexual Activity Drug Use No EK05/14/16 (Final) ECHO and EF: No results found for this or any previous visit. Labs: Lab Results Component Value Date WBC 8.7 06/24/2023 HGB 14.6 06/24/2023 HCT 43.0 06/24/2023 MCV 89.6 06/24/2023 PLT 259 06/24/2023 Lab Results Component Value Date NA 139 06/24/2023 K 3.5 06/24/2023 CL 102 06/24/2023 CO2 28 06/24/2023 BUN 8 06/24/2023 CREATININE 0.74 06/24/2023 GLUCOSE 123 (H) 06/24/2023 CALCIUM 9.2 06/24/2023 PROT 7.7 08/30/2023 BILITOT 0.4 08/30/2023 ALKPHOS 59 08/30/2023 AST 32 08/30/2023 ALT 21 08/30/2023 Past Medical History: Past Medical History: Diagnosis Date Acid reflux Disease of blood and blood forming organ IBS (irritable bowel syndrome) Vesicoureteral reflux Von Willebrand disease (HCC) Past Surgical History: Past Surgical History: Procedure Laterality Date SECTION (HISTORICAL) 2017 KIDNEY SURGERY re implanted ureters at the age of 9 months old TONSILLECTOMY (HISTORICAL) [facility] 09-02-2023 History of Presen t illness Narrative Basic chart review completed in preparation for upcoming procedure. Standard preoperative orders placed for DOS per anesthesia protocol. Allergies: Aspirin, Ibuprofen, Nsaids, Hydrocodone, Naproxen, and Dicyclomine Social History: TOBACCO: reports that she quit smoking about 5 years ago. Her smoking use included cigarettes. She has a 1 pack-year smoking history. She has never used smokeless tobacco. ETOH: reports no history of alcohol use. Social History Substance and Sexual Activity Drug Use No EK/19/17 (Final) ECHO and EF: No results found for this or any previous visit. Labs: Lab Results Component Value Date WBC 8.7 06/24/2023 HGB 14.6 06/24/2023 HCT 43.0 06/24/2023 MCV 89.6 06/24/2023 PLT 259 06/24/2023 Lab Results Component Value Date NA 139 06/24/2023 K 3.5 06/24/2023 CL 102 06/24/2023 CO2 28 06/24/2023 BUN 8 06/24/2023 CREATININE 0.74 06/24/2023 GLUCOSE 123 (H) 06/24/2023 CALCIUM 9.2 06/24/2023 PROT 7.7 08/30/2023 BILITOT 0.4 08/30/2023 ALKPHOS 59 08/30/2023 AST 32 08/30/2023 ALT 21 08/30/2023 Past Medical History: Past Medical History: Diagnosis Date Acid reflux Disease of blood and blood forming organ IBS (irritable bowel syndrome) Vesicoureteral reflux Von Willebrand disease (HCC) Past Surgical History: Past Surgical History: Procedure Laterality Date SECTION (HISTORICAL) 2017 KIDNEY SURGERY re implanted ureters at the age of 9 months old TONSILLECTOMY (HISTORICAL) documented in this encounter [facility] 08-31-2023 Telephone encounter Note Reviewed Dr. Silva's note on 08/27/23. Discussed with Jorge Roth, Oniel, Timmy. - We discussed plan for potential von willebrand factor replacement prior to surgery, and repeating the factor infusion every 24 hours out of caution, as patient carries a prior diagnosis of VWD. - Please infuse 50 VWF:RCo IU/kg on the morning of surgery (09/03/23), then infuse a second dose at 30 VWF: RCo IU/kg on POD #2 (09/04/23). - If unexpected/ significant bleeding is seen, the VWF can be repeated at 30 VWF: RCo IU /kg every 12 to 24 hours, and IV DDAVP can also be administered at 20 mcg daily x 2 days - Please make available aminocaproic acid or tranexamic acid 25 mg/kg PO every 6 hours as needed for bleeding post-surgery - I would recommend repeating CBC with differential on POD#2 to ensure hemodynamic stability, as well as monitoring PTT and PT. Note patient's PTT at baseline is elevated. [employer] Phone: 08-31-[address] Silva's note on 08/27/23: - We discussed plan for potential von willebrand factor replacement prior to surgery, and repeating the factor infusion every 24 hours out of caution, as patient carries a prior diagnosis of VWD. - Please infuse 50 VWF:RCo IU/kg on the morning of surgery (09/03/23), then infuse a second dose at 30 VWF: RCo IU/kg on POD #2 (09/04/23). - If unexpected/ significant bleeding is seen, the VWF can be repeated at 30 VWF: RCo IU /kg every 12 to 24 hours, and IV DDAVP can also be administered at 20 mcg daily x 2 days - Please make available aminocaproic acid or tranexamic acid 25 mg/kg PO every 6 hours as needed for bleeding post-surgery - I would recommend repeating CBC with differential on POD#2 to ensure hemodynamic stability, as well as monitoring PTT and PT. Note patient's PTT at baseline is elevated. LVM with Dr. Silva's office updating of patient's schedule lap huyen on 09/02 with plans to keep her for observation. Requesting specific preop medications and dosing and specific postop recommendations for blood work/treatment. I spoke to our hematology department who recommends orders from patient's primary chrome polisher and would only recommend referral to our hematology in light of concerns or complications. LVM requesting callback to office with recommendations. Spoke to Dr. Posey and Dr. Umaña - plan will be to keep patient in the hospital for observation. I will contact Dr. Silva next week for specific instructions regarding preop dosing, etc. Spoke to patient and relayed the plan. She states that she required further treatment after a colonoscopy and is comfortable staying overnight in the hospital for obs. I will contact her once I have a plan from hematology. Patient called . She spoke to Dr Luke and is confused. She states the Dr Luke told her that we wanted her to see a [facility]. And that this may prolong her surgery date. I read the notes to her but she wants to speak to Jessee to get a clear picture of what the game plan is. She wants surgery soon and does not want for it to be prolonged Called and lvm statting that we are waiting on a surgery date from Dr Posey Jo, please contact patient and schedule lap huyen. I am still coordinating with heme/onc regarding perioperative management, but this should not prohibit scheduling. Thanks. Name of caller: Jerrica Contact phone number: [phone] Relationship to Patient: patient Provider: Dr. Posey Practice: [facility] Chief Complaint/Reason for Call: Patient states that she has been waiting to hear from the office and noticed a note in her Mychart stating Patient would like a call back with status of surgery and admission. Please call patient. Patient states that she would like to receive a call back to discuss scheduling. Please advise. Best time of day caller can be reached: Any Patient advised that office/PCP has 24-48 business hours to return their call: No documented in this encounter [facility] 08-31-[address] Silva's note on 08/27/23. Discussed with Drs. Posey, Jorge, Oniel, Timmy. - We discussed plan for potential von willebrand factor replacement prior to surgery, and repeating the factor infusion every 24 hours out of caution, as patient carries a prior diagnosis of VWD. - Please infuse 50 VWF:RCo IU/kg on the morning of surgery (09/03/23), then infuse a second dose at 30 VWF: RCo IU/kg on POD #2 (09/04/23). - If unexpected/ significant bleeding is seen, the VWF can be repeated at 30 VWF: RCo IU /kg every 12 to 24 hours, and IV DDAVP can also be administered at 20 mcg daily x 2 days - Please make available aminocaproic acid or tranexamic acid 25 mg/kg PO every 6 hours as needed for bleeding post-surgery - I would recommend repeating CBC with differential on POD#2 to ensure hemodynamic stability, as well as monitoring PTT and PT. Note patient's PTT at baseline is elevated. LVM with Dr. Silva's office updating of patient's schedule lap huyen on 09/02 with plans to keep her for observation. Requesting specific preop medications and dosing and specific postop recommendations for blood work/treatment. I spoke to our hematology department who recommends orders from patient's primary chrome polisher and would only recommend referral to our hematology in light of concerns or complications. LVM requesting callback to office with recommendations. Spoke to Dr. Posey and Dr. Umaña - plan will be to keep patient in the hospital for observation. I will contact Dr. Silva next week for specific instructions regarding preop dosing, etc. Spoke to patient and relayed the plan. She states that she required further treatment after a colonoscopy and is comfortable staying overnight in the hospital for obs. I will contact her once I have a plan from hematology. Patient called . She spoke to Dr Luke and is confused. She states the Dr Luke told her that we wanted her to see a [facility]. And that this may prolong her surgery date. I read the notes to her but she wants to speak to Jessee to get a clear picture of what the game plan is. She wants surgery soon and does not want for it to be prolonged Called and lvm statting that we are waiting on a surgery date from Dr Posey Jo, please contact patient and schedule lap huyen. I am still coordinating with heme/onc regarding perioperative management, but this should not prohibit scheduling. Thanks. Name of caller: Jerrica Contact phone number: [phone] Relationship to Patient: patient Provider: Dr. Posey Practice: [facility] Chief Complaint/Reason for Call: Patient states that she has been waiting to hear from the office and noticed a note in her Mychart stating Patient would like a call back with status of surgery and admission. Please call patient. Patient states that she would like to receive a call back to discuss scheduling. Please advise. Best time of day caller can be reached: Any Patient advised that office/PCP has 24-48 business hours to return their call: No documented in this encounter [facility] 08-30-2023 Note Patient: Jerrica woodward Procedure Information Date/Time: 09/03/23 1130 Procedure: LAPAROSCOPIC CHOLECYSTECTOMY POSSIBLE OPEN (Abdomen) - 90 MIN Location: 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 Her smoking use included cigarettes. She has a 1 pack-year smoking history. She has never used smokeless tobacco. ETOH: reports no history of alcohol use. Social History Substance and Sexual Activity Drug Use No Family History: Family History Problem Relation Name Age of Onset High Blood Pressure Mother Multiple sclerosis Mother Cancer Paternal Grandmother Screening: Having periods Clinical information reviewed: Tobacco Allergies Meds Med Hx Surg Hx OB Status Fam Hx Soc Hx Physical Exam Airway Mallampati: III TM distance: >3 FB Neck ROM: full Mouth Open: normal Cardiovascular Dental Comments: Multiple broken, missing, and decayed. Nothing is loose dentition normal Pulmonary Abdominal Anesthesia Plan patient is NPO appropriate Any family history or previous problems with anesthesia no ASA 2 general and regional Any family history or previous problems with anesthesia no The patient is not a current smoker. Anesthetic plan and risks discussed with patient. Use of blood products discussed with who consented to blood products. Anesthesia Chow Considerations Hx Von Willebrand Per heme/onc note 08/27/23: - We discussed plan for potential von willebrand factor replacement prior to surgery, and repeating the factor infusion every 24 hours out of caution, as patient carries a prior diagnosis of VWD. - Please infuse 50 VWF:RCo IU/kg on the morning of surgery (09/03/23), then infuse a second dose at 30 VWF: RCo IU/kg on POD #2 (09/04/23). - If unexpected/ significant bleeding is seen, the VWF can be repeated at 30 VWF: RCo IU /kg every 12 to 24 hours, and IV DDAVP can also be administered at 20 mcg daily x 2 days - Please make available aminocaproic acid or tranexamic acid 25 mg/kg PO every 6 hours as needed for bleeding post-surgery - I would recommend repeating CBC with differential on POD#2 to ensure hemodynamic stability, as well as monitoring PTT and PT. Note patient's PTT at baseline is elevated. Patient to be admitted post-op ERAS Type Short ERAS ELIZABETH Screening negative Labs: Collected per surgeon's orders Pain Score: 5 - Moderate pain No echocardiogram results found for the past 14 days 05/14/16 (Final) [facility] 08-30-2023 Note Comprehensive Pre Small rgical History and Physical ? Name: Jerrica Suggs : 1995 (Age-28 y.o.) Date of Service: Pt seen/examined on 08/30/2023 Procedure Information Date/Time: 09/03/23 1130 Procedure: LAPAROSCOPIC CHOLECYSTECTOMY POSSIBLE OPEN (Abdomen) - 90 MIN Location: [facility] OR Operating Room Surgeons: Melvin Posey MD Chief Complaint: EPIGASTRIC PAIN ASSESSMENT/PLAN: Patient is considered low/intermediate risk for this intermediate level 1 risk procedure/surgery () with no reducible risk factors. Based on the above evaluation, the benefits of the planned procedure likely exceed the risks. The patient is medically optimized to proceed with the planned procedure without any further cardiopulmonary testing. 1) EPIGASTRIC PAIN - Managed per surgery Phenergan Zofran 2) Anxiety/ depression Xanax prn Effexor 3) Hx Von Willebrand Has needed Factor 5 and Amicar in the past after surgery Reviewed recent CBC Hepatic panel drawn per surgeon's orders in [facility] Visit Type: Pre-Admission Testing Visit Labs Ordered: As ordered by surgeon Sleep Referral Ordered: NO - NEGATIVE SCREEN PER SLEEP REFERRAL PROTOCOL Total time spent (which include face to face and non face to face encounters) : 30 minutes Toxic drug monitoring/narrow therapeutic index drug monitoring : # Drug name : na # Route administered : na # Method of monitoring : na PAT Protocol referenced includes: 1. Anesthesia Lab Protocol Orders 2. Perioperative Cardiovascular Risk Assessment 3. Anesthesia Assessment 4. Pain Assessment and Acute Pain Service Consult (if appropriate) 5. Medical Clearance/Consult from Internal Medicine (IM[facility]) 6. Shower/Wash Order (for designated surgeries) 7. ELIZABETH Screen and Sleep Clinic Referral (if appropriate) Patient did not name a surrogate decision-maker or provide an advance care plan History Of Present Illness: 28 y.o. female who we are asked to see/evaluate by Dr. Posey for pre-operative evaluation prior to above procedure . Do you have a history of chronic opioid use? NO ? Denies history of NM, CAD, CHF, TIA, CVA Past Medical History: Past Medical History: No date: Acid reflux No date: Disease of blood and blood forming organ No date: IBS (irritable bowel syndrome) No date: No date: Vesicoureteral reflux No date: Von Willebrand disease (HCC) Past Surgical History: Past Surgical History: No date: SECTION (HISTORICAL) Comment: 2016 No date: KIDNEY SURGERY Comment: re implanted ureters at the age of 9 months old No date: TONSILLECTOMY (HISTORICAL) Medications Prior to Admission: Prior to Admission medications Medication Sig Start Date End Date Taking? Authorizing Provider acetaminophen (Tylenol) 325 MG tablet Take by mouth. Historical Provider, Multiple Vitamin (multivitamin) capsule Take 1 capsule by mouth daily. Historical Provider, mupirocin (Bactroban) 2 % ointment every 12 hours. 01/05/22 Historical Provider, ondansetron ODT (Zofran-ODT) 8 MG disintegrating tablet 06/02/22 Historical Provider, promethazine (Phenergan) 12.5 MG tablet Take 12.5 mg by mouth every 6 hours as needed. 2/14/23 Historical Provider, venlafaxine XR (Effexor XR) 150 MG 24 hr capsule 05/08/23 Historical Provider, venlafaxine XR (Effexor XR) 37.5 MG 24 hr capsule Take 37.5 mg by mouth daily. Do not crush or chew. Historical Provider, Xanax 0.25 MG tablet 1 tablet Orally daily prn anxiety for 30 days 07/01/23 Historical Provider, CHRONIC NARCOTIC USE: No Allergies: Aspirin, Ibuprofen, Nsaids, Hydrocodone, Naproxen, and Dicyclomine If patient has opioid allergy, is it okay to take Acetaminophen: Yes Social History: TOBACCO: reports that she quit smoking about 5 years ago. Her smoking use included cigarettes. She has a 1 pack-year smoking history. She has never used smokeless tobacco. ETOH: reports no history of alcohol use. Social History Substance and Sexual Activity Drug Use No Family History: Family History Problem Relation Name Age of Onset High Blood Pressure Mother Multiple sclerosis Mother Cancer Paternal Grandmother REVIEW OF SYSTEMS: Review of Systems Constitutional: Negative for chills and fever. HENT: Negative for trouble swallowing. Respiratory: Negative for cough and shortness of breath. Cardiovascular: Negative for chest pain and leg swelling. Gastrointestinal: Negative for abdominal pain, nausea and vomiting. Skin: Negative for rash. Neurological: Negative for seizures and weakness. Physical Exam: Physical Exam Constitutional: Appearance: Normal appearance. HENT: Head: Normocephalic and atraumatic. Mouth/Throat: Mouth: Mucous membranes are moist. Pharynx: Oropharynx is clear. Eyes: Pupils: Pupils are equal, round, and reactive to light. (more content not included)... [facility] 08-30-2023 Note Comprehensive Pre Small rgical History and Physical ? Name: Jerrica Suggs : 1995 (Age-28 y.o.) Date of Service: Pt seen/examined on 08/30/2023 Procedure Information Date/Time: 09/03/23 1130 Procedure: LAPAROSCOPIC CHOLECYSTECTOMY POSSIBLE OPEN (Abdomen) - 90 MIN Location: [facility] OR Operating Room Surgeons: Melvin Posey MD Chief Complaint: EPIGASTRIC PAIN ASSESSMENT/PLAN: Patient is considered low/intermediate risk for this intermediate level 1 risk procedure/surgery () with no reducible risk factors. Based on the above evaluation, the benefits of the planned procedure likely exceed the risks. The patient is medically optimized to proceed with the planned procedure without any further cardiopulmonary testing. 1) EPIGASTRIC PAIN - Managed per surgery Phenergan Zofran 2) Anxiety/ depression Xanax prn Effexor 3) Hx Von Willebrand Has needed Factor 5 and Amicar in the past after surgery Reviewed recent CBC Hepatic panel drawn per surgeon's orders in [facility] Visit Type: Pre-Admission Testing Visit Labs Ordered: As ordered by surgeon Sleep Referral Ordered: NO - NEGATIVE SCREEN PER SLEEP REFERRAL PROTOCOL Total time spent (which include face to face and non face to face encounters) : 30 minutes Toxic drug monitoring/narrow therapeutic index drug monitoring : # Drug name : na # Route administered : na # Method of monitoring : na PAT Protocol referenced includes: 1. Anesthesia Lab Protocol Orders 2. Perioperative Cardiovascular Risk Assessment 3. Anesthesia Assessment 4. Pain Assessment and Acute Pain Service Consult (if appropriate) 5. Medical Clearance/Consult from Internal Medicine (IMS) 6. Shower/Wash Order (for designated surgeries) 7. ELIZABETH Screen and Sleep Clinic Referral (if appropriate) Patient did not name a surrogate decision-maker or provide an advance care plan History Of Present Illness: 28 y.o. female who we are asked to see/evaluate by Dr. Posey for pre-operative evaluation prior to above procedure . Do you have a history of chronic opioid use? NO ? Denies history of NM, CAD, CHF, TIA, CVA Past Medical History: Past Medical History: No date: Acid reflux No date: Disease of blood and blood forming organ No date: IBS (irritable bowel syndrome) No date: No date: Vesicoureteral reflux No date: Von Willebrand disease (HCC) Past Surgical History: Past Surgical History: No date: SECTION (HISTORICAL) Comment: 2016 No date: KIDNEY SURGERY Comment: re implanted ureters at the age of 9 months old No date: TONSILLECTOMY (HISTORICAL) Medications Prior to Admission: Prior to Admission medications Medication Sig Start Date End Date Taking? Authorizing Provider acetaminophen (Tylenol) 325 MG tablet Take by mouth. Historical Provider, Multiple Vitamin (multivitamin) capsule Take 1 capsule by mouth daily. Historical Provider, mupirocin (Bactroban) 2 % ointment every 12 hours. 01/05/22 Historical ProviderMD ondansetron ODT (Zofran-ODT) 8 MG disintegrating tablet 06/02/22 Historical ProviderMD promethazine (Phenergan) 12.5 MG tablet Take 12.5 mg by mouth every 6 hours as needed. 06/09/22 Historical ProviderMD venlafaxine XR (Effexor XR) 150 MG 24 hr capsule 05/08/23 Historical Provider, venlafaxine XR (Effexor XR) 37.5 MG 24 hr capsule Take 37.5 mg by mouth daily. Do not crush or chew. Historical Provider, Xanax 0.25 MG tablet 1 tablet Orally daily prn anxiety for 30 days 07/01/23 Historical Provider, CHRONIC NARCOTIC USE: No Allergies: Aspirin, Ibuprofen, Nsaids, Hydrocodone, Naproxen, and Dicyclomine If patient has opioid allergy, is it okay to take Acetaminophen: Yes Social History: TOBACCO: reports that she quit smoking about 5 years ago. Her smoking use included cigarettes. She has a 1 pack-year smoking history. She has never used smokeless tobacco. ETOH: reports no history of alcohol use. Social History Substance and Sexual Activity Drug Use No Family History: Family History Problem Relation Name Age of Onset High Blood Pressure Mother Multiple sclerosis Mother Cancer Paternal Grandmother REVIEW OF SYSTEMS: Review of Systems Constitutional: Negative for chills and fever. HENT: Negative for trouble swallowing. Respiratory: Negative for cough and shortness of breath. Cardiovascular: Negative for chest pain and leg swelling. Gastrointestinal: Negative for abdominal pain, nausea and vomiting. Skin: Negative for rash. Neurological: Negative for seizures and weakness. Physical Exam: Physical Exam Constitutional: Appearance: Normal appearance. HENT: Head: Normocephalic and atraumatic. Mouth/Throat: Mouth: Mucous membranes are moist. Pharynx: Oropharynx is clear. Eyes: Pupils: Pupils are equal, round, and reactive to light. (more content not included)... [facility] 08-28-2023 Telephone encounter Note Please fax my most recent note from 08/27/23 to the requesting office. [facility] 08-28-2023 Miscellaneous Notes Please fax my most recent note from 08/27/23 to the requesting office. CAROLYNN Tao from [facility] would like to get pre-op and post- op recommendations for medications, lab orders etc.. . She is having surgery on September [address] Posey. They will keep her for over night observation after her surgery on 09/02. Rebecca Lorenzo - [phone] documented in this encounter [facility] 08-27-2023 History of Presen t illness Narrative Images from the original note were not included. VIRTUAL VISIT PROGRESS NOTE This is a virtual visit using [employer] Zoom Video Visit. It required patient-provider interaction for the medical decision making as documented below. I have communicated my name and active licensure. The patient's identity and physical location were verified at the time of this visit. The patient has been informed of the risks and benefits of -- and alternatives to -- treatment through a remote evaluation and consents to proceed with the evaluation remotely. Name: Jerrica Suggs Date of : 1995 Date of Service: 08/27/23 Diagnosis: Von Willebrand disease type I, diagnosed at age 17 at [facility], when prolonged PTT was noted in preparation for tonsillectomy. In 02/2012, patient was characterized as a DDAVP responder. Jerrica's son has also been diagnosed with von Willebrand disease. Jerrica's mother has not presented for testing but is suspected to also have the disease. - In 2012, for tonsillectomy, patient recalls having been prescribed Humate-P and Amicar. - In 2016, for her son's delivery, patient recalls having used Humate before and after delivery, and Stimate as well. Jerrica declines nasal DDAVP for her procedures in 2022 due to concern for adverse effects. - On 09/22/22, Jerrica received IV DDAVP 20 mcg prior to EGD and colonoscopy, and IV tranexamic acid 1000 mg prior to discharge. She was provided with a prescription for tranexamic acid 1300 mg PO every 8 hours (due to unavailability of aminocaproic acid 5000 mg PO q6h) for a 7-day course, which she can discontinue in a few days if no persistent bleeding. She was given a second dose of IV DDAVP 20 mcg on day 2 of the procedure. History of Present Illness: Jerrica Suggs is a 28 year old woman with von Willebrand disease type I, previously followed by Dr. Martinez, who presents in follow-up in preparation for upcoming cholecystectomy by Dr. Posey. Her surgery is now scheduled for 09/03/23 at [facility]. Jerrica had her labs drawn on 08/23/23. Dr. Posey has kindly agreed to admit Jerrica overnight for observation, given her history of VWD. PAST MEDICAL HISTORY Diagnosis Date Encounter for preoperative assessment 09/04/2022 H/O removal of cyst from back of head Ureteral reflux with re-implantation at 9 months Vesico-ureteral reflux Von Willebrand disease Type I diagnosed at age 17. PAST SURGICAL HISTORY Procedure Laterality Date COLONOSCOPY 09/22/2022 EGD W/O [facility] SPEC VARICIES INJ 09/22/2022 OTHER ureteral-reimplantation TONSILLECTOMY HX TOOTH EXTRACTION Current Outpatient Medications Medication Sig Dispense Refill venlafaxine ER (EFFEXOR XR) 150 mg 24 hr capsule venlafaxine ER (EFFEXOR XR) 37.5 mg 24 hr capsule Take 37.5 mg by mouth. aminocaproic acid (AMICAR) 250 mg/mL (25 %) solution Take 20 mL by mouth every 6 hours as needed (bleeding). 473 mL 1 omeprazole (PRILOSEC) 20 mg capsule Take 1 capsule by mouth once daily. 30 capsule 2 ondansetron orally disintegrating (ZOFRAN ODT) 8 mg disintegrating tablet Take 1 tablet by mouth every 8 hours as needed for nausea/vomiting. 60 tablet 1 tranexamic acid (LYSTEDA) 650 mg tablet Take 2 tablets by mouth every 8 hours for 3 days, THEN 2 tablets every 8 hours as needed (Visible GI bleeding) for up to 4 days. 13 tablet 0 acetaminophen (TYLENOL) 325 mg tablet Take by mouth as directed. aluminum chloride (DRYSOL) 20 % external solution hyoscyamine sublingual (LEVSIN/SL) 0.125 mg Dissolve 1 tablet under the tongue every 4 hours as needed. 60 tablet 2 promethazine (PHENERGAN) 12.5 mg tablet Take 1 tablet by mouth every 6 hours as needed. 60 tablet 1 No current facility-administered medications for this visit. ALLERGIES Allergen Reactions Aluminum Aspirin Other: See Comments Ibuprofen Unknown, Other: See Comments Due to having a bleeding disorder Aspirin Other: See Comments Bleeding disorder Hydrocodone-Acetami* Unknown Nsaids (Non-Steroid* Other: See Comments Bleeding disorder Dicyclomine Other: See Comments FAMILY HISTORY Problem Relation Age of Onset other (MS) Mother other (Diverticulosis) Mother other (Other) Father Multiple Sclerosis Paternal Grandmother other (Limted information; brother; mother, grandmother don't want to be tested.) Other Social History Tobacco Use Smoking status: Former Smokeless tobacco: Never Vaping Use Vaping Use: Never used Substance Use Topics Alcohol use: No Drug use: No Review of Systems: With pertinent positives and/or negatives above. Laboratory Data: Latest Ref Rng & Units 08/28/2022 09/23/2022 08/23/2023 CBC WBC 3.70 - 11.00 k/uL 8.99 7.90 7.06 RBC 3.90 - 5.20 m/uL 5.02 4.95 4.80 Hemoglobin 11.5 - 15.5 g/dL 15.5 15.3 15.1 Hematocrit 36.0 - 46.0 % 44.6 43.3 43.6 MCV 80.0 - 100.0 fL 88.8 87.5 90.8 MCH 26.0 - 34.0 pg 30.9 30.9 31.5 MCHC 30.5 - 36.0 g/dL 34.8 35.3 34.6 RDW-CV 11.5 - 15.0 % 11.8 11.7 11.6 Platelet Count 150 - 400 k/uL 233 228 250 MPV 9.0 - 12.7 fL 10.4 10.7 10.6 Baso% % 0.6 0.3 0.6 Abs Neut (ANC) 1.45 - 7.50 k/uL 5.12 4.92 4.29 Abs Lymph 1.00 - 4.00 k/uL 2.67 2.06 1.89 Abs [place] <0.87 k/uL 0.61 0.61 0.46 Abs Eosin <0.46 k/uL 0.52 0.27 0.35 Abs Baso <0.11 k/uL 0.05 <0.03 0.04 NRBC /100 WBC 0.0 0.0 0.0 08/23/23 Von Willebrand Panel: Ristocetin Co-Factor 76% Collagen Binding (CBA) 54% Factor VIII:C Assay 53% Von Willebrand Ag 78% RistoCetin/VWF Ratio 1.0 CBA/VWF Ratio 0.7 FVIII/VWF Ratio 0.7 Normal multimer intensity with normal distribution of multimer sizes. Platelet function screen normal. PTT 36.3 PT 10.8 09/23/22 Repeat Von Willebrand Panel negative for VWD Platelet function screen normal PTT mildly prolonged; normal PT Factor IX:C assay 119% Factor XI: C assay 89% Factor XII:C assay 98% 08/28/22 Von Willebrand Panel: Ristocetin Co-Factor 72% Collagen Binding (CBA) 67% Factor VIII:C Assay 77% Von Willebrand Ag 79% RistoCetin/VWF Ratio 0.9 CBA/VWF Ratio 0.8 FVIII/VWF Ratio 1.0 Normal multimer intensity with normal distribution of multimer sizes. PT 10.7, PTT 36.1, fibrinogen 285 Assessment and Plan: Von Willebrand disease Type I - VWF panel with normal levels on 08/28/22, 09/23/22 and 08/23/23 - Platelet function screen panel normal on 09/23/22 and 08/23/23 - Despite prolonged PTT, normal factor IX, IX and XII levels on 09/23/22 - Characterized as DDAVP responder in the past - We discussed plan for potential von willebrand factor replacement prior to surgery, and repeating the factor infusion every 24 hours out of caution, as patient carries a prior diagnosis of VWD. - Please infuse 50 VWF:RCo IU/kg on the morning of surgery (09/03/23), then infuse a second dose at 30 VWF: RCo IU/kg on POD #2 (09/04/23). - If unexpected/ significant bleeding is seen, the VWF can be repeated at 30 VWF: RCo IU /kg every 12 to 24 hours, and IV DDAVP can also be administered at 20 mcg daily x 2 days - Please make available aminocaproic acid or tranexamic acid 25 mg/kg PO every 6 hours as needed for bleeding post-surgery - I would recommend repeating CBC with differential on POD#2 to ensure hemodynamic stability, as well as monitoring PTT and PT. Note patient's PTT at baseline is elevated. Follow-up As needed, pending outcome of surgery Bakari Silva MD Hematology and Oncology [facility], [facility] documented in this encounter [facility] 08-27-2023 Telephone encounter Note CAROLYNN Tao from [facility] would like to get pre-op and post- op recommendations for medications, lab orders etc.. . She is having surgery on September [address] Posey. They will keep her for over night observation after her surgery on 09/02. Rebecca Lorenzo - [phone] [facility] 08-27-2023 Telephone encounter Note LVM with Dr. Silva's office updating of patient's schedule lap huyen on 09/02 with plans to keep her for observation. Requesting specific preop medications and dosing and specific postop recommendations for blood work/treatment. I spoke to our hematology department who recommends orders from patient's primary chrome polisher and would only recommend referral to our hematology in light of concerns or complications. LVM requesting callback to office with recommendations. [facility] [employer] Work Phone: 08-27-2023 Miscellaneous Notes LVM with Dr. Silva's office updating of patient's schedule lap huyen on 09/02 with plans to keep her for observation. Requesting specific preop medications and dosing and specific postop recommendations for blood work/treatment. I spoke to our hematology department who recommends orders from patient's primary chrome polisher and would only recommend referral to our hematology in light of concerns or complications. LVM requesting callback to office with recommendations. Spoke to Dr. Posey and Dr. Umaña - plan will be to keep patient in the hospital for observation. I will contact Dr. Silva next week for specific instructions regarding preop dosing, etc. Spoke to patient and relayed the plan. She states that she required further treatment after a colonoscopy and is comfortable staying overnight in the hospital for obs. I will contact her once I have a plan from hematology. Patient called . She spoke to Dr Luke and is confused. She states the Dr Luke told her that we wanted her to see a [facility]. And that this may prolong her surgery date. I read the notes to her but she wants to speak to [facility] to get a clear picture of what the game plan is. She wants surgery soon and does not want for it to be prolonged Called and lvm statting that we are waiting on a surgery date from Dr Posey Jo, please contact patient and schedule lap huyen. I am still coordinating with heme/onc regarding perioperative management, but this should not prohibit scheduling. Thanks. Name of caller: Jerrica Contact phone number: [phone] Relationship to Patient: patient Provider: Dr. Posey Practice: [facility] Chief Complaint/Reason for Call: Patient states that she has been waiting to hear from the office and noticed a note in her Mychart stating Patient would like a call back with status of surgery and admission. Please call patient. Patient states that she would like to receive a call back to discuss scheduling. Please advise. Best time of day caller can be reached: Any Patient advised that office/PCP has 24-48 business hours to return their call: No documented in this encounter [facility] 08-20-2023 Telephone encounter Note Spoke with patient today. Lab work to be drawn Wednesday08/23/2023. Telemed visit scheduled 08/27/2023. [facility] 08-20-2023 Miscellaneous Notes Spoke with patient today. Lab work to be drawn Wednesday08/23/2023. Telemed visit scheduled 08/27/2023. Please schedule a virtual visit with patient (phone or video) about 3 business days after whenever patient will plan to undergo lab testing. Please offer to patient again my sincere apologies for the delay in getting back to her message. Pt calling today to ask exactly when her blood work needs completed before her gallbladder surgery by Dr. Posey on 09/03/23 at 11 am? Please advise. Shirley Parrish LPN documented in this encounter [facility] 08-20-2023 Telephone encounter Note Please schedule a virtual visit with patient (phone or video) about 3 business days after whenever patient will plan to undergo lab testing. Please offer to patient again my sincere apologies for the delay in getting back to her message. [facility] 08-17-2023 Telephone encounter Note Pt calling today to ask exactly when her blood work needs completed before her gallbladder surgery by Dr. Posey on 09/03/23 at 11 am? Please advise. Shirley aPrrish LPN [facility] 08-13-2023 Telephone encounter Note Spoke to Dr. Posey and Dr. Umaña - plan will be to keep patient in the hospital for observation. I will contact Dr. Silva next week for specific instructions regarding preop dosing, etc. Spoke to patient and relayed the plan. She states that she required further treatment after a colonoscopy and is comfortable staying overnight in the hospital for obs. [employer] Phone: 08-13-2023 Miscellaneous Notes Spoke to Dr. Posey and Dr. Umaña - plan will be to keep patient in the hospital for observation. I will contact Dr. Silva next week for specific instructions regarding preop dosing, etc. Spoke to patient and relayed the plan. She states that she required further treatment after a colonoscopy and is comfortable staying overnight in the hospital for obs. I will contact her once I have a plan from hematology. Patient called . She spoke to Dr Luke and is confused. She states the Dr Luke told her that we [facility]. And that this may prolong her surgery date. I read the notes to her but she wants to speak to [place] to get a clear picture of what the game plan is. She wants surgery soon and does not want for it to be prolonged Called and lvm statting that we are waiting on a surgery date from Dr Posey Jo, please contact patient and schedule lap huyen. I am still coordinating with heme/onc regarding perioperative management, but this should not prohibit scheduling. Thanks. Name of caller: Jerrica Contact phone number: [phone] Relationship to Patient: patient Provider: Dr. Posey Practice: [facility] Chief Complaint/Reason for Call: Patient states that she has been waiting to hear from the office and noticed a note in her Mychart stating Patient would like a call back with status of surgery and admission. Please call patient. Patient states that she would like to receive a call back to discuss scheduling. Please advise. Best time of day caller can be reached: Any Patient advised that office/PCP has 24-48 business hours to return their call: No documented in this encounter [employer] 08-12-2023 Telephone encounter Note I will contact her once I have a plan from hematology. [employer] Work Phone: 08-12-2023 Miscellaneous Notes I will contact her once I have a plan from hematology. Patient called . She spoke to Dr Luke and is confused. She states the Dr Luke told her that we wanted her [facility]. And that this may prolong her surgery date. I read the notes to her but she wants to speak to [place] to get a clear picture of what the game plan is. She wants surgery soon and does not want for it to be prolonged Called and lvm statting that we are waiting on a surgery date from Dr Posey Jo, please contact patient and schedule lap huyen. I am still coordinating with heme/onc regarding perioperative management, but this should not prohibit scheduling. Thanks. Name of caller: Jerrica Contact phone number: [phone] Relationship to Patient: patient Provider: Dr. Posey Practice: [facility] Chief Complaint/Reason for Call: Patient states that she has been waiting to hear from the office and noticed a note in her Mychart stating Patient would like a call back with status of surgery and admission. Please call patient. Patient states that she would like to receive a call back to discuss scheduling. Please advise. Best time of day caller can be reached: Any Patient advised that office/PCP has 24-48 business hours to return their call: No documented in this encounter [facility] 08-12-2023 Telephone encounter Note Patient called . She spoke to Dr Luke and is confused. She states the Dr Luke told her that we [facility] And that this may prolong her surgery date. I read the notes to her but she wants to speak to Jessee to get a clear picture of what the game plan is. She wants surgery soon and does not want for it to be prolonged [employer] 08-10-2023 Telephone encounter Note Call from patient - concerned with note in this call She needs to have repeated MRI for surveillance of pancreatic cyst in 1 year- cancer be with her PCP if she does not want to travel for office visits. Patient states she was unaware of any concern for cancer. Explained to patient that cancer was a typo- should read CAN be with her PCP. Patient expressed understanding. [employer] 08-10-2023 Miscellaneous Notes Call from patient - concerned with note in this call She needs to have repeated MRI for surveillance of pancreatic cyst in 1 year- cancer be with her PCP if she does not want to travel for office visits. Patient states she was unaware of any concern for cancer. Explained to patient that cancer was a typo- should read CAN be with her PCP. Patient expressed understanding. Reviewed Dr. Rosario's recommendations. Patient expressed understanding. Requests for Dr. Rosario to see her again if her PCP is unable to order testing. Patient instructed to call with any future questions. Images from the original note were not included. Son Rosario MD You She is cleared to have surgery. 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 Call from patient. States she already saw results and unclear why she needs to come in for appointment with Dr. Rosario when it says it is benign. Patient states she lives far away (30 minutes). Patient would just like clearance to have surgery with Dr. Posey. Spoke with patient. Scheduled appt for 08/04/2023 Images from the original note were not included. MD Casandra Coe MA Let see her in clinic. ----- Message from Son Rosario MD sent at 08/02/2023 11:58 AM EDT ----- Let see her in clinic. documented in this encounter [facility] 08-10-2023 Telephone encounter Note Called and lvm statting that we are waiting on a surgery date from Dr Posey [facility] 08-10-2023 Telephone encounter Note Jo, please contact patient and schedule lap huyen. I am still coordinating with heme/onc regarding perioperative management, but this should not prohibit scheduling. Thanks. [facility] 08-10-2023 Telephone encounter Note Name of caller: Jerrica Contact phone number: [phone] Relationship to Patient: patient Provider: Dr. Posey Practice: [facility] Chief Complaint/Reason for Call: Patient states that she has been waiting to hear from the office and noticed a note in her Mychart stating Patient would like a call back with status of surgery and admission. Please call patient. Patient states that she would like to receive a call back to discuss scheduling. Please advise. Best time of day caller can be reached: Any Patient advised that office/PCP has 24-48 business hours to return their call: No [employer] 08-06-2023 Telephone encounter Note Patient would like a call back with status of surgery and admission. Please call patient [employer] [facility] 08-06-2023 Miscellaneous Notes Patient would like a call back with status of surgery and admission. Please call patient Put on Dr Posey's desk for date Dr. Silva's office note - received and in your box for review. Awaiting Dr. Silva's office note - please obtain for review. Spoke to Dr. Posey. Will plan to place her as first case of the day to allow for longer stay for repeat testing postop. Hopefully this will not result in an overnight stay, but we can keep her overnight if needed. Will plan to treat preop and consult hematology for postop evaluation. Please let the patient know and work with Dr. Posey to schedule. Thanks! Spoke to Dr. Silva - progress note being faxed over. She states that patient reports bleeding with previous procedures. Recommend DDAVP or factor preop and 8-12 hours following procedure to recheck labs. She states that she can be kept outpatient, but would recommend consulting [facility]'s heme/onc to help coordinate f/u lab work. Otherwise, consider observation to ease f/u evaluation. Will discuss with Dr. Posey and let patient know POC. Called Dr. Silva's office and [facility] for medical records secretary, requesting recommendations for outpatient procedure, as patients usually do not require overnight stays. Please take message and let me know, thanks. Patient called in stating that her Dr Bakari Silva F Hematology Oncology spoke with her regarding surgery with us. Due to her bleeding disorder Dr Silva asked her to ask us if she could stay for an overnight observation for her surgery (Stevie Hollis w Dr Posey) for medication purposes. Patient also was in question about if she may have to have a Hematology Dr here at [facility] since her other is at [facility] if problems arise. DP documented in this encounter [facility] 08-05-2023 Telephone encounter Note Put on Dr Posey's desk for date [facility] 08-05-[address]isc[address] on Dr Posey's desk for date Dr. Silva's office note - received and in your box for review. Awaiting Dr. Silva's office note - please obtain for review. Spoke to Dr. Posey. Will plan to place her as first case of the day to allow for longer stay for repeat testing postop. Hopefully this will not result in an overnight stay, but we can keep her overnight if needed. Will plan to treat preop and consult hematology for postop evaluation. Please let the patient know and work with Dr. Posey to schedule. Thanks! Spoke to Dr. Silva - progress note being faxed over. She states that patient reports bleeding with previous procedures. Recommend DDAVP or factor preop and 8-12 hours following procedure to recheck labs. She states that she can be kept outpatient, but would recommend consulting [facility]'s heme/onc to help coordinate f/u lab work. Otherwise, consider observation to ease f/u evaluation. Will discuss with Dr. Posey and let patient know POC. Called Dr. Silva's office and [facility] for medical records secretary, requesting recommendations for outpatient procedure, as patients usually do not require overnight stays. Please take message and let me know, thanks. Patient called in stating that her Dr Bakari Silva [facility] Hematology Oncology spoke with her regarding surgery with us. Due to her bleeding disorder Dr Silva asked her to ask us if she could stay for an overnight observation for her surgery (Lap Huyen w Dr Posey) for medication purposes. Patient also was in question about if she may have to have a Hematology Dr here at [facility] since her other is at [facility] if problems arise. DP documented in this encounter [facility] 08-05-[address] Silva's office note - received and in your box for review. [facility] 08-04-2023 Telephone encounter Note Awaiting Dr. Silva's office note - please obtain for review. Spoke to Dr. Posey. Will plan to place her as first case of the day to allow for longer stay for repeat testing postop. Hopefully this will not result in an overnight stay, but we can keep her overnight if needed. Will plan to treat preop and consult hematology for postop evaluation. Please let the patient know and work with Dr. Posey to schedule. Thanks! [facility] Work Phone: 08-04-[address] Silva's office note - please obtain for review. Spoke to Dr. Posey. Will plan to place her as first case of the day to allow for longer stay for repeat testing postop. Hopefully this will not result in an overnight stay, but we can keep her overnight if needed. Will plan to treat preop and consult hematology for postop evaluation. Please let the patient know and work with Dr. Posey to schedule. Thanks! Spoke to Dr. Silva - progress note being faxed over. She states that patient reports bleeding with previous procedures. Recommend DDAVP or factor preop and 8-12 hours following procedure to recheck labs. She states that she can be kept outpatient, but would recommend consulting [facility]'s heme/onc to help coordinate f/u lab work. Otherwise, consider observation to ease f/u evaluation. Will discuss with Dr. Posey and let patient know POC. Called Dr. Silva's office and [facility] for medical records secretary, requesting recommendations for outpatient procedure, as patients usually do not require overnight stays. Please take message and let me know, thanks. Patient called in stating that her Dr Bakari Silva [facility] Hematology Oncology spoke with her regarding surgery with us. Due to her bleeding disorder Dr Silva asked her to ask us if she could stay for an overnight observation for her surgery (Lap Huyen w Dr Posey) for medication purposes. Patient also was in question about if she may have to have a Hematology Dr here at [facility] since her other is at [facility] if problems arise. DP documented in this encounter [facility] 08-04-2023 Telephone encounter Note Reviewed Dr. Rosario's recommendations. Patient expressed understanding. Requests for Dr. Rosario to see her again if her PCP is unable to order testing. Patient instructed to call with any future questions. [facility] 08-04-2023 Telephone encounter Note Images from the original note were not included. Son Rosario MD You She is cleared to have surgery. 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 [facility] 08-03-2023 Telephone encounter Note Call from patient. States she already saw results and unclear why she needs to come in for appointment with Dr. Rosario when it says it is benign. Patient states she lives far away (30 minutes). Patient would just like clearance to have surgery with Dr. Posey. [facility] 08-03-2023 Miscellaneous Notes Call from patient. States she already saw results and unclear why she needs to come in for appointment with Dr. Rosario when it says it is benign. Patient states she lives far away (30 minutes). Patient would just like clearance to have surgery with Dr. Posey. Spoke with patient. Scheduled appt for 08/04/2023 Images from the original note were not included. MD Casandra Coe MA Let see her in clinic. ----- Message from Son Rosario MD sent at 08/02/2023 11:58 AM EDT ----- Let see her in clinic. documented in this encounter [facility] 08-03-[address] uJju mccarty note being faxed over. She states that patient reports bleeding with previous procedures. Recommend DDAVP or factor preop and 8-12 hours following procedure to recheck labs. She states that she can be kept outpatient, but would recommend consulting [facility]'s heme/onc to help coordinate f/u lab work. Otherwise, consider observation to ease f/u evaluation. Will discuss with Dr. Posey and let patient know POC. [facility] 08-03-2023 Telephone encounter Note Spoke to Dr. Juju mccarty note being faxed over. She states that patient reports bleeding with previous procedures. Recommend DDAVP or factor preop and 8-12 hours following procedure to recheck labs. She states that she can be kept outpatient, but would recommend consulting [facility]'s heme/onc to help coordinate f/u lab work. Otherwise, consider observation to ease f/u evaluation. Will discuss with Dr. Posey and let patient know POC. [facility] 08-03-2023 Miscellaneous Notes I spoke to . Rebecca Bj regarding Jerrica, and discussed likely need for IV DDAVP or IV VWF prior to surgery. Because these infusions are typically repeated every 8 to 24 hours, it may be difficult, though not impossible, to coordinate care as outpatient. I also recommended referral to Hematology at [facility] so Hematology can be present within the same health care system as Dr. Posey, patient's surgeon, for factor or DDAVP replacement prior to and after surgery. I have asked our clinic staff to also fax my latest clinic note (from yesterday) to Ms. Lorenzo and Dr. Posey. Received call from [facility] Surgery department (Rebecca PRADHAN [phone]). Request to speak regarding upcoming lap huyen. Patients are not usually admitted. They can administer pre op DDAVP. Recommendation to repeat lab work prior. documented in this encounter [facility] 08-03-2023 Telephone encounter Note Spoke with patient. Scheduled appt for 08/04/2023 [facility] 08-03-2023 Telephone encounter Note Images from the original note were not included. MD Casandra Coe MA Let see her in clinic. [facility] 08-03-2023 Telephone encounter Note ----- Message from Son Rosario MD sent at 08/02/2023 11:58 AM EDT ----- Let see her in clinic. [facility] 08-02-[address] Silva's of [facility] and [facility] for medical records secretary, requesting recommendations for outpatient procedure, as patients usually do not require overnight stays. Please take message and let me know, thanks. [facility] 08-02-2023 Telephone encounter Note Called Dr. Silva's office and [facility] for medical records secretary, requesting recommendations for outpatient procedure, as patients usually do not require overnight stays. Please take message and let me know, thanks. [facility] Work Phone: 08-02-[address] Silva's office and [facility] for medical records secretary, requesting recommendations for outpatient procedure, as patients usually do not require overnight stays. Please take message and let me know, thanks. Patient called in stating that her Dr Bakari Silva [facility] Hematology Oncology spoke with her regarding surgery with us. Due to her bleeding disorder Dr Silva asked her to ask us if she could stay for an overnight observation for her surgery (Stevie Posey) for medication purposes. Patient also was in question about if she may have to have a Hematology Dr castillo at [facility] since her other is at [facility] if problems arise. DP documented in this encounter [facility] 08-02-2023 Telephone encounter Note Patient called in stating that her Dr Bakari Silva [facility] Hematology Oncology spoke with her regarding surgery with us. Due to her bleeding disorder Dr Silva asked her to ask us if she could stay for an overnight observation for her surgery (Stevie Posey) for medication purposes. Patient also was in question about if she may have to have a Hematology Dr here at [facility] since her other is at [facility] if problems arise. DP [facility] 08-02-2023 Instructions Bakari Silva MD - 08/02/2023 11:49 AM EDT Please let us know when your surgery is scheduled, and how the surgery will take place. If you are being admitted, it would be best to have levels rechecked prior to surgery and to see Hematology at [facility]. documented in this encounter [facility] 08-02-2023 History of Presen t illness Narrative Images from the original note were not included. Name: Jerrica Suggs Date of : 1995 Date of Service: 08/02/23 Diagnosis: Von Willebrand disease type I, diagnosed at age 17 at [facility], when prolonged PTT was noted in preparation for tonsillectomy. In 02/2012, patient was characterized as a DDAVP responder. Jerrica's son has also been diagnosed with von Willebrand disease. Jerrica's mother has not presented for testing but is suspected to also have the disease. - In 2012, for tonsillectomy, patient recalls having been prescribed Humate-P and Amicar. - In 2016, for her son's delivery, patient recalls having used Humate before and after delivery, and Stimate as well. Jerrica declines nasal DDAVP for her procedures in 2022 due to concern for adverse effects. - On 09/22/22, Jerrica received IV DDAVP 20 mcg prior to EGD and colonoscopy, and IV tranexamic acid 1000 mg prior to discharge. She was provided with a prescription for tranexamic acid 1300 mg PO every 8 hours (due to unavailability of aminocaproic acid 5000 mg PO q6h) for a 7-day course, which she can discontinue in a few days if no persistent bleeding. She was given a second dose of IV DDAVP 20 mcg on day 2 of the procedure. History of Present Illness: Jerrica Suggs is a 27 year old woman with von Willebrand disease type I, previously followed by Dr. Martinez, who presents in follow-up in preparation for upcoming cholecystectomy by Dr. Posey. Jerrica reports abdominal pain, which- after extensive workup- prompted decision by Dr. Posey and Dr. Rosario for potential cholecystectomy, pending MRI abdomen (not yet reviewed). Jerrica reports feeling well, without recent increase in menstrual bleeding or bruising. Her Mirena IUD remains in place. She has not needed to take tranexamic or aminocaproic acid since her EGD and colonoscopy. PAST MEDICAL HISTORY Diagnosis Date Encounter for preoperative assessment 09/04/2022 H/O removal of cyst from back of head Ureteral reflux with re-implantation at 9 months Vesico-ureteral reflux Von Willebrand disease Type I diagnosed at age 17. PAST SURGICAL HISTORY Procedure Laterality Date COLONOSCOPY 09/22/2022 EGD W/O [facility] SPEC VARICIES INJ 09/22/2022 OTHER ureteral-reimplantation TONSILLECTOMY HX TOOTH EXTRACTION Current Outpatient Medications Medication Sig Dispense Refill venlafaxine ER (EFFEXOR XR) 150 mg 24 hr capsule venlafaxine ER (EFFEXOR XR) 37.5 mg 24 hr capsule Take 37.5 mg by mouth. aminocaproic acid (AMICAR) 250 mg/mL (25 %) solution Take 20 mL by mouth every 6 hours as needed (bleeding). 473 mL 1 ondansetron orally disintegrating (ZOFRAN ODT) 8 mg disintegrating tablet Take 1 tablet by mouth every 8 hours as needed for nausea/vomiting. 60 tablet 1 acetaminophen (TYLENOL) 325 mg tablet Take by mouth as directed. promethazine (PHENERGAN) 12.5 mg tablet Take 1 tablet by mouth every 6 hours as needed. 60 tablet 1 omeprazole (PRILOSEC) 20 mg capsule Take 1 capsule by mouth once daily. 30 capsule 2 tranexamic acid (LYSTEDA) 650 mg tablet Take 2 tablets by mouth every 8 hours for 3 days, THEN 2 tablets every 8 hours as needed (Visible GI bleeding) for up to 4 days. 13 tablet 0 aluminum chloride (DRYSOL) 20 % external solution hyoscyamine sublingual (LEVSIN/SL) 0.125 mg Dissolve 1 tablet under the tongue every 4 hours as needed. 60 tablet 2 No current facility-administered medications for this visit. ALLERGIES Allergen Reactions Aluminum Aspirin Other: See Comments Ibuprofen Unknown, Other: See Comments Due to having a bleeding disorder Aspirin Other: See Comments Bleeding disorder Hydrocodone-Acetami* Unknown Nsaids (Non-Steroid* Other: See Comments Bleeding disorder Dicyclomine Other: See Comments FAMILY HISTORY Problem Relation Age of Onset other (MS) Mother other (Diverticulosis) Mother other (Other) Father Multiple Sclerosis Paternal Grandmother other (Limted information; brother; mother, grandmother don't want to be tested.) Other Social History Tobacco Use Smoking status: Former Smokeless tobacco: Never Vaping Use Vaping Use: Never used Substance Use Topics Alcohol use: No Drug use: No Review of Systems: With pertinent positives and/or negatives above. Laboratory Data: Latest Ref Rng & Units 02/24/2017 08/28/2022 09/23/2022 CBC WBC 3.70 - 11.00 k/uL 9.0 8.99 7.90 RBC 3.90 - 5.20 m/uL 5.10 5.02 4.95 HGB 11.7 - 14.7 g/dL 14.1 Hemoglobin 11.5 - 15.5 g/dL 15.5 15.3 Hematocrit 36.0 - 46.0 % 42.2 44.6 43.3 MCV 80.0 - 100.0 fL 82.7 88.8 87.5 MCH 26.0 - 34.0 pg 27.6 30.9 30.9 MCHC 30.5 - 36.0 g/dL 33.4 34.8 35.3 RDW 11.8 - 14.5 % 13.8 RDW-CV 11.5 - 15.0 % 11.8 11.7 Platelet Count 150 - 400 k/uL 259 233 228 MPV 9.0 - 12.7 fL 10.8 10.4 10.7 Baso% % 0.6 0.3 Abs Neut (ANC) 1.45 - 7.50 k/uL 5.12 4.92 Abs Lymph 1.00 - 4.00 k/uL 2.67 2.06 Abs [place] <0.87 k/uL 0.61 0.61 Abs Eosin <0.46 k/uL 0.52 0.27 Abs Baso <0.11 k/uL 0.05 <0.03 NRBC /100 WBC 0.0 0.0 09/23/22 Repeat Von Willebrand Panel negative for VWD Platelet function screen normal PTT mildly prolonged; normal PT Factor IX:C assay 119% Factor XI: C assay 89% Factor XII:C assay 98% 08/28/22 Von Willebrand Panel: Ristocetin Co-Factor 72% Collagen Binding (CBA) 67% Factor VIII:C Assay 77% Von Willebrand Ag 79% RistoCetin/VWF Ratio 0.9 CBA/VWF Ratio 0.8 FVIII/VWF Ratio 1.0 Normal multimer intensity with normal distribution of multimer sizes. PT 10.7, PTT 36.1, fibrinogen 285 Assessment and Plan: Von Willebrand disease Type I - VWF panel with normal levels on 08/28/22 and 09/23/22 - Platelet function screen panel normal on 09/23/22 - Despite prolonged PTT, normal factor IX, IX and XII levels on 09/23/22 - Characterized as DDAVP responder in the past - We discussed plan for potential von willebrand factor replacement prior to surgery, and repeating the factor infusion every 8 to 24 hours, pending her updated levels prior to surgery - It may be easiest to admit patient following cholecystectomy for overnight observation, in which case inpatient Hematology can follow patient at [facility]. If patient does not get admitted per Dr. Posey, she would benefit from outpatient referral to Hematology for VWF or DDAVP infusion prior to surgery, and close monitoring with potential additional infusions in the day(s) following surgery. - I have ordered repeat labs at this time, but Jerrica will defer until more specific plan for surgery is developed in the upcoming days to weeks. Bakari Silva MD Hematology and Oncology [facility], [facility] documented in this encounter [facility] 07-07-2023 History of Presen t illness Narrative Patient is referred for evaluation of a pancreatic lesion found incidentally on cross-sectional imaging. She is 28 years old female who is referred by another surgeon evaluating her for possible biliary dyskinesia. Patient complains of multiple GI symptoms including significant heartburn, nausea, epigastric abdominal pain, weight loss as well as ulcerating constipation and diarrhea. Patient states that had multiple studies including upper and lower GI endoscopy as well as CT scan and ultrasound which demonstrated no significant pathology and she was diagnosed with irritable bowel syndrome. She also had a HIDA scan which demonstrated normal ejection fraction however patient states that HIDA scan reproduced acute pain which she is periodically experiencing. She is being evaluated by MIS service for possible cholecystectomy as well as ruling out SMA syndrome. Small lesion along inferior border of the pancreatic body was noted on CT scan and interval MRI was recommended. [facility] 1995 [id number] Exam Date/Time: 06/24/2023 23:57 Procedure: CT ABDOMEN PELVIS W CONTRAST Ordering Provider: FONSECA DANIEL Reason For Exam: Pancreatitis, acute, severe --------ADDENDUM #1 -------- Addendum: Recommend 6 month follow up MRCP exam to assess the stability of 1.2 cm peripancreatic hypodense focus. This hypodensity favors a benign process i.e. peripancreatic cyst, enteric cyst or lymph node. Report Dictated on Electronically Signed By: Esvin Brower DO Electronically Signed Date/Time: 07/02/2023 8:51 AM EST --------ORIGINAL REPORT -------- CT ABDOMEN AND PELVIS WITH CONTRAST CLINICAL INDICATION: 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. Leg paresthesias. TECHNIQUE: Multi-axial 3mm sections through the abdomen and pelvis following 75 mL of Isoview contrast media. No oral contrast was administered. Coronal and sagittal reconstructions were reviewed. Dose reduction was employed with automated exposure control. COMPARISON: 07/06/2022. Correlation is made with HIDA scan dated 06/15/2023 FINDINGS: Lung bases: Minimal bibasilar atelectasis Liver: Normal size and contours. No focal lesion. Biliary tree: The gallbladder is unremarkable. No biliary dilatation. Spleen: Normal. Adrenals: Normal. Pancreas: Normal. 1.2 cm ovoid hypodense nodule inferior to the mid pancreatic body, unchanged from prior exam. Kidneys: Symmetric contrast enhancement without evidence of hydronephrosis. No focal renal lesion is identified. Free air or fluid: None. Mesenteric/retroperitoneal: No adenopathy or inflammation. Aorta: Normal caliber. Bowel: Appendix is normal in caliber . No dilatation is noted. Abdominal wall: No ventral hernia is evident. Pelvic organs/viscera: No mass identified. Uterus is anteverted and contains IUD in the uterine endometrial fundus/body. Inguinal lymphadenopathy: None. Osseous structures: No osseous abnormality. IMPRESSION: No acute abdominal or pelvic findings to explain symptoms. 1.2 cm ovoid hypodense focus inferior to the mid pancreatic body, unchanged from prior exam. This may represent a prominent lymph node or peripancreatic cyst. Report Dictated on Electronically Signed By: Esvin Brower DO Electronically Signed Date/Time: 06/25/2023 12:15 AM EST Addended by Esvin Brower DO on 07/02/2023 8:51 AM Study Result Narrative & Impression Patient Name: JERRICA SUGGS : 1995 Exam Date/Time: 06/24/2023 23:57 Procedure: CT ABDOMEN PELVIS W CONTRAST Ordering Provider: FONSECA DANIEL Reason For Exam: Pancreatitis, acute, severe CT ABDOMEN AND PELVIS WITH CONTRAST CLINICAL INDICATION: 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. Leg paresthesias. TECHNIQUE: Multi-axial 3mm sections through the abdomen and pelvis following 75 mL of Isoview contrast media. No oral contrast was administered. Coronal and sagittal reconstructions were reviewed. Dose reduction was employed with automated exposure control. COMPARISON: 07/06/2022. Correlation is made with HIDA scan dated 06/15/2023 FINDINGS: Lung bases: Minimal bibasilar atelectasis Liver: Normal size and contours. No focal lesion. Biliary tree: The gallbladder is unremarkable. No biliary dilatation. Spleen: Normal. Adrenals: Normal. Pancreas: Normal. 1.2 cm ovoid hypodense nodule inferior to the mid pancreatic body, unchanged from prior exam. Kidneys: Symmetric contrast enhancement without evidence of hydronephrosis. No focal renal lesion is identified. Free air or fluid: None. Mesenteric/retroperitoneal: No adenopathy or inflammation. Aorta: Normal caliber. Bowel: Appendix is normal in caliber . No dilatation is noted. Abdominal wall: No ventral hernia is evident. Pelvic organs/viscera: No mass identified. Uterus is anteverted and contains IUD in the uterine endometrial fundus/body. Inguinal lymphadenopathy: None. Osseous structures: No osseous abnormality. IMPRESSION: No acute abdominal or pelvic findings to explain symptoms. 1.2 cm ovoid hypodense focus inferior to the mid pancreatic body, unchanged from prior exam. This may represent a prominent lymph node or peripancreatic cyst. Diagnosis Date Disease of blood and blood forming organ IBS (irritable bowel syndrome) Vesicoureteral reflux Von Willebrand disease (HCC) Surgical History Past Surgical History: Procedure Laterality Date SECTION (HISTORICAL) 2017 KIDNEY SURGERY TONSILLECTOMY (HISTORICAL) Family History[]Expand by Default Family History Problem Relation Name Age of Onset High Blood Pressure Mother Multiple sclerosis Mother Cancer Paternal Grandmother Social History Tobacco Use Smoking status: Former Packs/day: .5 Types: Cigarettes Quit date: 2018 Years since quittin.1 Smokeless tobacco: Never Substance Use Topics Alcohol use: No Allergies Allergen Reactions Aspirin Other Due to having a bleeding disorder Other reaction(s): Bleeding Ibuprofen Other Due to having a bleeding disorder Nsaids Other Due to bleeding disorder. Hydrocodone-Acetaminophen Itching Makes face itch. Naproxen Dicyclomine Palpitations REVIEW OF SYSTEMS: Review of Systems Constitutional: Negative for chills and fever. HENT: Negative for trouble swallowing. Respiratory: Negative for cough and shortness of breath. Cardiovascular: Negative for chest pain and leg swelling. Gastrointestinal: Positive for abdominal pain, nausea and vomiting. Skin: Negative for rash. Neurological: Negative for seizures and weakness. Physical Exam: Physical Exam Constitutional: Appearance: Normal appearance. HENT: Head: Normocephalic and atraumatic. Mouth/Throat: Mouth: Mucous membranes are moist. Pharynx: Oropharynx is clear. Eyes: Pupils: Pupils are equal, round, and reactive to light. Cardiovascular: Rate and Rhythm: Normal rate. Pulses: Normal pulses. Pulmonary: Effort: Pulmonary effort is normal. Abdominal: General: Bowel sounds are normal. Musculoskeletal: General: Normal range of motion. Cervical back: Normal range of motion. Skin: General: Skin is warm and dry. Capillary Refill: Capillary refill takes less than 2 seconds. Neurological: General: No focal deficit present. Mental Status: She is alert and oriented to person, place, and time. Psychiatric: Behavior: Behavior normal. Impression: 28 years old female with multiple GI symptoms, currently being evaluated for possible biliary dyskinesia or SMA syndrome by MIS service who presents for evaluation of hypodense lesion inferior to the border of the pancreas. All imaging personally reviewed, lesion appears to be stable in the interim comparing to prior CT scan a year earlier. Differential includes pancreatic cysti lesion, lymph node or unrelated anatomic variation. Will proceed with pancreatic MRI to evaluate the area better. She is to continue workup for her symptoms with MIS's surgery and GI. Once MRI is done, we will contact patient with our recommendations. Patient is in agreement with the plan. All questions answered. Overall time for encounter including personal review of imaging and records was 45 minutes. documented in this encounter [facility] 07-07-2023 Note Patient is referred for evaluation of a pancreatic lesion found incidentally on cross-sectional imaging. She is 28 years old female who is referred by another surgeon evaluating her for possible biliary dyskinesia. Patient complains of multiple GI symptoms including significant heartburn, nausea, epigastric abdominal pain, weight loss as well as ulcerating constipation and diarrhea. Patient states that had multiple studies including upper and lower GI endoscopy as well as CT scan and ultrasound which demonstrated no significant pathology and she was diagnosed with irritable bowel syndrome. She also had a HIDA scan which demonstrated normal ejection fraction however patient states that HIDA scan reproduced acute pain which she is periodically experiencing. She is being evaluated by MIS service for possible cholecystectomy as well as ruling out SMA syndrome. Small lesion along inferior border of the pancreatic body was noted on CT scan and interval MRI was recommended. Patient Name[facility] 1995 [id number] Exam Date/Time: 06/24/2023 23:57 Procedure: CT ABDOMEN PELVIS W CONTRAST Ordering Provider: FONSECA DANIEL Reason For Exam: Pancreatitis, acute, severe --------ADDENDUM #1 -------- Addendum: Recommend 6 month follow up MRCP exam to assess the stability of 1.2 cm peripancreatic hypodense focus. This hypodensity favors a benign process i.e. peripancreatic cyst, enteric cyst or lymph node. Report Dictated on Electronically Signed By: Esvin Brower DO Electronically Signed Date/Time: 07/02/2023 8:51 AM EST --------ORIGINAL REPORT -------- CT ABDOMEN AND PELVIS WITH CONTRAST CLINICAL INDICATION: 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. Leg paresthesias. TECHNIQUE: Multi-axial 3mm sections through the abdomen and pelvis following 75 mL of Isoview contrast media. No oral contrast was administered. Coronal and sagittal reconstructions were reviewed. Dose reduction was employed with automated exposure control. COMPARISON: 07/06/2022. Correlation is made with HIDA scan dated 06/15/2023 FINDINGS: Lung bases: Minimal bibasilar atelectasis Liver: Normal size and contours. No focal lesion. Biliary tree: The gallbladder is unremarkable. No biliary dilatation. Spleen: Normal. Adrenals: Normal. Pancreas: Normal. 1.2 cm ovoid hypodense nodule inferior to the mid pancreatic body, unchanged from prior exam. Kidneys: Symmetric contrast enhancement without evidence of hydronephrosis. No focal renal lesion is identified. Free air or fluid: None. Mesenteric/retroperitoneal: No adenopathy or inflammation. Aorta: Normal caliber. Bowel: Appendix is normal in caliber . No dilatation is noted. Abdominal wall: No ventral hernia is evident. Pelvic organs/viscera: No mass identified. Uterus is anteverted and contains IUD in the uterine endometrial fundus/body. Inguinal lymphadenopathy: None. Osseous structures: No osseous abnormality. IMPRESSION: No acute abdominal or pelvic findings to explain symptoms. 1.2 cm ovoid hypodense focus inferior to the mid pancreatic body, unchanged from prior exam. This may represent a prominent lymph node or peripancreatic cyst. Report Dictated on Electronically Signed By: Esvin Brower DO Electronically Signed Date/Time: 06/25/2023 12:15 AM EST Addended by Esvin Brower DO on 07/02/2023 8:51 AM Study Result Narrative & Impression Patient Name: JERRICA SUGGS : 1995 Exam Date/Time: 06/24/2023 23:57 Procedure: CT ABDOMEN PELVIS W CONTRAST Ordering Provider: FONSECA DANIEL Reason For Exam: Pancreatitis, acute, severe CT ABDOMEN AND PELVIS WITH CONTRAST CLINICAL INDICATION: 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. Leg paresthesias. TECHNIQUE: Multi-axial 3mm sections through the abdomen and pelvis following 75 mL of Isoview contrast media. No oral contrast was administered. Coronal and sagittal reconstructions were reviewed. Dose reduction was employed with automated exposure control. COMPARISON: 07/06/2022. Correlation is made with HIDA scan dated 06/15/2023 FINDINGS: Lung bases: Minimal bibasilar atelectasis Liver: Normal size and contours. No focal lesion. Biliary tree: The gallbladder is unremarkable. No biliary dilatation. Spleen: Normal. Adrenals: Normal. Pancreas: Normal. 1.2 cm ovoid hypodense nodule inferior to the mid pancreatic body, unchanged from prior exam. Kidneys: Symmetric contrast enhancement without evidence of hydronephrosis. No focal renal lesion is identified. Free air or fluid: None. Mesenteric/retroperitoneal: No adenopathy or inflammation. Aorta: Normal caliber. Bowel: Appendix is normal in caliber . No dilatation is noted. Abdominal wall: No ventral hernia is evident. Pelvic organs/viscera: No mass identified. Uterus is anteverted and contains IUD in the [place] (more content not included)... [facility] 07-05-2023 History of Presen t illness Narrative Images from the original note were not included. MELVIN POSEY MD, FACS, [facility] ADVANCED LAPAROSCOPIC - ROBOTIC & BARIATRIC SURGERY [facility] HISTORY AND PHYSICAL 07/05/23 PATIENT: Jerrica Suggs DATE OF : 1995 CHIEF COMPLAINT Postprandial epigastric/RUQ pain, nausea, weight loss HISTORY OF PRESENT ILLNESS Jerrica Suggs is a 28 y.o. female who presents to our general surgery office today for evaluation of chronic postprandial epigastric pain that radiates to the RUQ. She states that she suffered from significant heartburn & nausea while in 2017. After giving , her heartburn persisted and has worsened into postprandial epigastric pain. Attributed this to lactose intolerance, however pain occurs with all PO intake at this time. Has suffered from associated diarrhea until a few month ago, and is now experiencing constipation. Additionally, she she experiences her severe abdominal pain, she also experiences numbness/tingling of her fingers and face, as well as locking of her fingers & hands, which resolves after a short period of time and massaging. Has been evaluated by ER, MRI with no obvious findings. Also reports associated ~40# weight loss over the past few years with these symptoms. Has undergone workup as below. Of note, she did have provoked abdominal cramping and hand cramping during her HIDA scan. PMH significant for von Willebrand's - follows with Dr. Silva at [facility]. FHx significant for MS in her mother and paternal grandmother, who also of pancreatic cancer. PSH significant for open anti-ureteral reflux surgery at 9 months old, . Former smoker. Notes Reviewed: - ER, 06/24/23 - Charlee Fernando C[employer]IL [employer] INVESTIGATOR, 05/26/23 Data reviewed: - CT abd/pel, 06/24/23: personally interpreted, 1.2cm peripancreatic hypodense focus stable since 06/2022 - Abd US, 06/24/23: unremarkable - HIDA, 06/24/23: EF 80%, severe reproduction of symptoms - GES, 06/08/23: normal gastric emptying - EGD w/ Dr. Begum, 09/22/22: unremarkable, small bowel biopsies unremarkable - Colonoscopy w/ Dr. 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 IBS (irritable bowel syndrome) Vesicoureteral reflux Von Willebrand disease (HCC) Past Surgical History: Procedure Laterality Date SECTION (HISTORICAL) 2017 KIDNEY SURGERY TONSILLECTOMY (HISTORICAL) Family History Problem Relation Name Age of Onset High Blood Pressure Mother Multiple sclerosis Mother Cancer Paternal Grandmother Social History Tobacco Use Smoking status: Former Packs/day: .5 Types: Cigarettes Quit date: 2019 Years since quittin.1 Smokeless tobacco: Never Substance Use Topics Alcohol use: No Current Outpatient Medications Medication Sig Dispense Refill acetaminophen (Tylenol) 325 MG tablet Take by mouth. mupirocin (Bactroban) 2 % ointment every 12 hours. ondansetron ODT (Zofran-ODT) 8 MG disintegrating tablet promethazine (Phenergan) 12.5 MG tablet Take 12.5 mg by mouth every 6 hours as needed. venlafaxine XR (Effexor XR) 150 MG 24 hr capsule venlafaxine XR (Effexor XR) 37.5 MG 24 hr capsule Take 37.5 mg by mouth daily. Do not crush or chew. Xanax 0.25 MG tablet 1 tablet Orally daily prn anxiety for 30 days No current facility-administered medications for this visit. Allergies Allergen Reactions Aspirin Other Due to having a bleeding disorder Other reaction(s): Bleeding Ibuprofen Other Due to having a bleeding disorder Nsaids Other Due to bleeding disorder. Hydrocodone-Acetaminophen Itching Makes face itch. Naproxen Dicyclomine Palpitations PHYSICAL EXAM BP 107/75 (BP Location: Left arm, Patient Position: Sitting, BP Cuff Size: Adult) Pulse (!) 116 Temp 36.9 C (98.5 F) (Temporal) Ht 5' 2 (1.575 m) Wt 151 lb (68.5 kg) LMP 06/13/2023 (Exact Date) BMI 27.62 kg/m Physical Exam Constitutional: Appearance: Normal appearance. Not ill-appearing. Pulmonary: Effort: Pulmonary effort is normal. Breath sounds: Grossly normal breath sounds. No stridor. Chest: Chest wall: No tenderness. Abdominal: General: There is no distension. Palpation: Abdomen is soft. There is no mass. Tenderness: There is no rebound. Hernia: no obvious hernia on exam Musculoskeletal: General: No tenderness. Normal range of motion. Right lower leg: No edema. Skin: General: Skin is warm and dry. ASSESSMENT 1. Postprandial epigastric pain 2. Elevated lipase 3. Pancreatic lesion 4. Weight loss Based on today's evaluation, the patient is a candidate for laparoscopic cholecystectomy. PLAN I have recommended referral to Dr. Rosario for evaluation of pancreatic lesion on CT. We also recommend proceeding with mesenteric duplex for further evaluation. Pending results and B plan of care, we discussed the option to proceed with laparoscopic cholecystectomy, however discussed that surgery may or may not improve her symptoms. She understands and will let us know if she'd like to proceed with surgical intervention after the above workup. Medical risk stratification: hematology, Dr. Silva and [facility] Additional work-up and pre-op testing: referral to HPB, mesenteric duplex Additional orders and instructions: None We reviewed the details of the recommended surgical procedure. The risks discussed included but were not limited to bleeding, infection, damage to surrounding organs, cardiovascular and pulmonary complications related to the anesthesia. We discussed the possibility of conversion from laparoscopic to an open procedure, the possible need for re-operative or endoscopic therapy and the potential for prolonged mechanical ventilation and tyra-operative . All questions were fully answered to the patient's satisfaction and they wished to proceed with surgery. ATTESTATION I personally interviewed and examined the patient. I have reviewed their past medical, surgical, medication, allergy, social and family histories. I have performed an independent physical examination and have reviewed all pertinent laboratory and imaging results. I have reviewed with the patient my assessment of their condition as well as the treatment recommendations and the associated risks, benefits and options. IN POSEY MD, FACS, [facility] - [facility] [place] [employer] [facility] - [facility] and Bariatric Surgery [facility] ---[facility]--- Patient Care Team: Nunu Cortez MD as PCP - General (Family Medicine) Bakari Silva MD (Hematology and Oncology) se documented in this encounter [facility] 07-05-2023 History of Presen t illness Narrative Images from the original note were not included. MELVIN POSEY MD, FACS, [facility] ADVANCED LAPAROSCOPIC - ROBOTIC & BARIATRIC SURGERY [facility] HISTORY AND PHYSICAL 07/05/23 PATIENT: Jerrica Suggs DATE OF : 1995 CHIEF COMPLAINT Postprandial epigastric/RUQ pain, nausea, weight loss HISTORY OF PRESENT ILLNESS Jerrica Suggs is a 28 y.o. female who presents to our general surgery office today for evaluation of chronic postprandial epigastric pain that radiates to the RUQ. She states that she suffered from significant heartburn & nausea while in 2017. After giving , her heartburn persisted and has worsened into postprandial epigastric pain. Attributed this to lactose intolerance, however pain occurs with all PO intake at this time. Has suffered from associated diarrhea until a few month ago, and is now experiencing constipation. Additionally, she she experiences her severe abdominal pain, she also experiences numbness/tingling of her fingers and face, as well as locking of her fingers & hands, which resolves after a short period of time and massaging. Has been evaluated by ER, MRI with no obvious findings. Also reports associated ~40# weight loss over the past few years with these symptoms. Has undergone workup as below. Of note, she did have provoked abdominal cramping and hand cramping during her HIDA scan. PMH significant for von Willebrand's - follows with Dr. Silva at [facility]. FHx significant for MS in her mother and paternal grandmother, who also of pancreatic cancer. PSH significant for open anti-ureteral reflux surgery at 9 months old, . Former smoker. Notes Reviewed: - ER, 06/24/23 - Charlee Fernando CIVIL RIGHTS INVESTIGATOR, 05/26/23 Data reviewed: - CT abd/pel, 06/24/23: personally interpreted, 1.2cm peripancreatic hypodense focus stable since 06/2022 - Abd US, 06/24/23: unremarkable - HIDA, 06/24/23: EF 80%, severe reproduction of symptoms - GES, 06/08/23: normal gastric emptying - EGD w/ Dr. Begum, 09/22/22: unremarkable, small bowel biopsies unremarkable - Colonoscopy w/ Dr. 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 IBS (irritable bowel syndrome) Vesicoureteral reflux Von Willebrand disease (HCC) Past Surgical History: Procedure Laterality Date SECTION (HISTORICAL) 2017 KIDNEY SURGERY TONSILLECTOMY (HISTORICAL) Family History Problem Relation Name Age of Onset High Blood Pressure Mother Multiple sclerosis Mother Cancer Paternal Grandmother Social History Tobacco Use Smoking status: Former Packs/day: .5 Types: Cigarettes Quit date: 2018 Years since quittin.1 Smokeless tobacco: Never Substance Use Topics Alcohol use: No Current Outpatient Medications Medication Sig Dispense Refill acetaminophen (Tylenol) 325 MG tablet Take by mouth. mupirocin (Bactroban) 2 % ointment every 12 hours. ondansetron ODT (Zofran-ODT) 8 MG disintegrating tablet promethazine (Phenergan) 12.5 MG tablet Take 12.5 mg by mouth every 6 hours as needed. venlafaxine XR (Effexor XR) 150 MG 24 hr capsule venlafaxine XR (Effexor XR) 37.5 MG 24 hr capsule Take 37.5 mg by mouth daily. Do not crush or chew. Xanax 0.25 MG tablet 1 tablet Orally daily prn anxiety for 30 days No current facility-administered medications for this visit. Allergies Allergen Reactions Aspirin Other Due to having a bleeding disorder Other reaction(s): Bleeding Ibuprofen Other Due to having a bleeding disorder Nsaids Other Due to bleeding disorder. Hydrocodone-Acetaminophen Itching Makes face itch. Naproxen Dicyclomine Palpitations PHYSICAL EXAM BP 107/75 (BP Location: Left arm, Patient Position: Sitting, BP Cuff Size: Adult) Pulse (!) 116 Temp 36.9 C (98.5 F) (Temporal) Ht 5' 2 (1.575 m) Wt 151 lb (68.5 kg) LMP 06/13/2023 (Exact Date) BMI 27.62 kg/m Physical Exam Constitutional: Appearance: Normal appearance. Not ill-appearing. Pulmonary: Effort: Pulmonary effort is normal. Breath sounds: Grossly normal breath sounds. No stridor. Chest: Chest wall: No tenderness. Abdominal: General: There is no distension. Palpation: Abdomen is soft. There is no mass. Tenderness: There is no rebound. Hernia: no obvious hernia on exam Musculoskeletal: General: No tenderness. Normal range of motion. Right lower leg: No edema. Skin: General: Skin is warm and dry. ASSESSMENT 1. Postprandial epigastric pain 2. Elevated lipase 3. Pancreatic lesion 4. Weight loss Based on today's evaluation, the patient is a candidate for laparoscopic cholecystectomy. PLAN I have recommended referral to Dr. Rosario for evaluation of pancreatic lesion on CT. We also recommend proceeding with mesenteric duplex for further evaluation. Pending results and HPB plan of care, we discussed the option to proceed with laparoscopic cholecystectomy, however discussed that surgery may or may not improve her symptoms. She understands and will let us know if she'd like to proceed with surgical intervention after the above workup. Medical risk stratification: hematology, Dr. Silva and [facility] clinic Additional work-up and pre-op testing: referral to HPB, mesenteric duplex Additional orders and instructions: None We reviewed the details of the recommended surgical procedure. The risks discussed included but were not limited to bleeding, infection, damage to surrounding organs, cardiovascular and pulmonary complications related to the anesthesia. We discussed the possibility of conversion from laparoscopic to an open procedure, the possible need for re-operative or endoscopic therapy and the potential for prolonged mechanical ventilation and tyra-operative . All questions were fully answered to the patient's satisfaction and they wished to proceed with surgery. ATTESTATION I personally interviewed and examined the patient. I have reviewed their past medical, surgical, medication, allergy, social and family histories. I have performed an independent physical examination and have reviewed all pertinent laboratory and imaging results. I have reviewed with the patient my assessment of their condition as well as the treatment recommendations and the associated risks, benefits and options. [place] MD, [facility], [facility] - [facility] [place] [facility] - [facility] and Bariatric Surgery Fellowship ---[facility]--- Patient Care Team: Nunu Cortez MD as PCP - General (Family Medicine) Bakari Silva MD (Hematology and Oncology) se Vascular US Mesenteric Artery Duplex Complete is scheduled for: Date: 07/14/2023 Time: 8:20 am Location: [place] Information relayed to patient via mail, phone and [employer]. Orders in EPIC. Auth NAN documented in this encounter [facility] 07-05-2023 Instructions Rebecca Lorenzo PA-C - 07/05/2023 1:00 PM EDT Referral to hepatobiliary - Dr. Rosario or Dr. Rodriguez Schedule Mesenteric Duplex US documented in this encounter [facility] 07-05-2023 Instructions Reebcca Lorenzo PA-C - 07/05/2023 1:00 PM EDT Referral to hepatobiliary - Dr. Rosario or Dr. Rodriguez Schedule Mesenteric Duplex US documented in this encounter [facility] 07-05-2023 Note Referral to hepatobi liary - Dr. Rosario or Dr. Rodriguez Schedule Mesenteric Duplex US [facility] 06-24-2023 Hospital Discharg e instructions CHRIS Butt CNP - 06/24/2023 11:17 PM EST Your lipase was slightly elevated above the normal but your CT scan does not show any reason this would be or abnormalities that explain your pain. Please follow up with your PCP and with your surgery referral. The following attachments cannot be sent through Care Everywhere.Abdominal Pain, Adult ED (Salvadorean)Nausea and Vomiting, Adult ED (Salvadorean)documented in this encounter [facility] 06-24-2023 Emergency department Note Per ED reg, patient states that the doctor is trying to poison her. Anyi Ruelas RN 06/24/232199 [facility] 06-24-2023 Emergency department Note Per ED reg, patient states that the doctor is trying to poison her. Anyi Ruelas RN 06/24/23 2200 EMERGENCY DEPARTMENT ENCOUNTER Pt Name: Jerrica Suggs Birthdate 1995 Date of evaluation: 06/24/2023 ED Provider: Ayad Fonseca APRN - TREV I have evaluated this patient on my own, per my scope of practice with an attending physician available for consultation. CHIEF COMPLAINT Chief Complaint Patient presents with Abdominal Pain HISTORY OF PRESENT ILLNESS (Location/Symptom, Timing/Onset, Context/Setting, Quality, Duration, Modifying Factors, Severity) Note limiting factors. I wore appropriate PPE for the entirety of this encounter. HPI Jerrica Suggs is a 28 y.o. who presents to the emergency department with chief complaint of with a year and a half of abdominal pain patient states worsening symptoms since getting a HIDA scan 2 days ago. She complains of right upper quadrant abdominal pain states pain waxes and wanes in severity states when he gets severe her hands will cramp up and she will get muscle spasming in various locations. She has had an extensive workup as an outpatient that showed normal HIDA scan, she had an ultrasound over a year ago she had an EGD and a colonoscopy that were normal. Nursing Notes were reviewed. Limitations to history: None Outside historians: None REVIEW OF SYSTEMS Review of Systems Constitutional: Negative for activity change, appetite change, chills and fever. HENT: Negative for congestion, nosebleeds, sinus pain and trouble swallowing. Eyes: Negative for pain and visual disturbance. Respiratory: Negative for cough, chest tightness and shortness of breath. Cardiovascular: Negative for chest pain and palpitations. Gastrointestinal: Positive for abdominal pain. Negative for abdominal distention, blood in stool, diarrhea, nausea and vomiting. Genitourinary: Negative for dysuria, hematuria, pelvic pain, vaginal bleeding, vaginal discharge and vaginal pain. Musculoskeletal: Negative for arthralgias, back pain and myalgias. Skin: Negative for rash and wound. Neurological: Negative for syncope, weakness, light-headedness and headaches. Hematological: Negative for adenopathy. Psychiatric/Behavioral: Negative for agitation and confusion. All other systems reviewed and are negative. Pertinent positives and negatives as per HPI. 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 DICYCLOMINE (BENTYL) 20 MG TABLET HYOSCYAMINE (LEVSIN) 0.125 MG SL TABLET DISSOLVE 1 TABLET UNDER THE TONGUE EVERY 4 HOURS NEEDED. MUPIROCIN (BACTROBAN) 2 % OINTMENT every 12 hours. ONDANSETRON ODT (ZOFRAN-ODT) 8 MG DISINTEGRATING TABLET PROMETHAZINE (PHENERGAN) 12.5 MG TABLET Take 12.5 mg by mouth every 6 hours as needed. VENLAFAXINE XR (EFFEXOR XR) 150 MG 24 HR CAPSULE ALLERGIES Aspirin, Ibuprofen, Nsaids, Hydrocodone-acetaminophen, and Dicyclomine FAMILY HISTORY Family History Problem Relation Name Age of Onset High Blood Pressure Mother Multiple sclerosis Mother Cancer Paternal Grandmother SOCIAL HISTORY Social History Socioeconomic History Marital status: Tobacco Use Smoking status: Former Packs/day: .5 Types: Cigarettes Quit date: 2018 Years since quittin.1 Smokeless tobacco: Never Vaping Use Vaping Use: Never used Substance and Sexual Activity Alcohol use: No Drug use: No SCREENINGS PHYSICAL EXAM ED Triage Vitals [06/24/232127] Temp Heart Rate Resp BP 36.9 C (98.5 F) 110 18 125/84 SpO2 Temp Source Heart Rate Source Patient Position 100 % Temporal Monitor -- BP Location FiO2 (%) -- -- Physical Exam Vitals and nursing note reviewed. Constitutional: General: She is not in acute distress. Appearance: Normal appearance. She is normal weight. She is not ill-appearing or toxic-appearing. HENT: Head: Normocephalic and atraumatic. Right Ear: External ear normal. Left Ear: External ear normal. Mouth/Throat: Mouth: Mucous membranes are moist. Pharynx: Oropharynx is clear. Eyes: Extraocular Movements: Extraocular movements intact. Conjunctiva/sclera: Conjunctivae normal. Pupils: Pupils are equal, round, and reactive to light. Cardiovascular: Comments: Regular rate and rhythm, normal S1-S2, no murmurs noted. Radial pulses 2+ and symmetric. Pulmonary: Effort: Pulmonary effort is normal. No respiratory distress. Breath sounds: Normal breath sounds. No stridor. No wheezing or rhonchi. Abdominal: Comments: Abdomen is soft and nondistended there is tenderness in the right upper quadrant without guarding or rebound tenderness, bowel sounds are normal. Musculoskeletal: General: No swelling, tenderness, deformity or signs of injury. Normal range of motion. Cervical back: Normal range of motion and neck supple. No rigidity or tenderness. Lymphadenopathy: Cervical: No cervical adenopathy. Skin: General: Skin is warm and dry. Capillary Refill: Capillary refill takes less than 2 seconds. Coloration: Skin is not jaundiced or pale. Findings: No bruising or erythema. Neurological: General: No focal deficit present. Mental Status: She is alert and oriented to person, place, and time. Mental status is at baseline. Cranial Nerves: No cranial nerve deficit. Sensory: No sensory deficit. Motor: No weakness. Coordination: Coordination normal. Psychiatric: Mood and Affect: Mood normal. DIAGNOSTIC RESULTS Procedures/EKG: EKG was reviewed by myself. Physician EKG interpretation can be found in [facility] RADIOLOGY (Per Emergency Physician): Interpretation per the Radiologist below, if available at the time of this note: CT abdomen pelvis w contrast Final Result No acute abdominal or pelvic findings to explain symptoms. 1.2 cm ovoid hypodense focus inferior to the mid pancreatic body, unchanged from prior exam. This may represent a prominent lymph node or peripancreatic cyst. Report Dictated on Electronically Signed By: Esvin Brower DO Electronically Signed Date/Time: 06/25/2023 12:15 AM EST US abdomen limited Final Result 1. No abnormality seen. Report Dictated on Electronically Signed By: Jeff James MD Electronically Signed Date/Time: 06/24/2023 11:03 PM EST ED BEDSIDE ULTRASOUND: Performed by ED Physician - none LABS: Labs Reviewed COMPREHENSIVE METABOLIC PANEL - Abnormal Result Value SODIUM 139 POTASSIUM 3.5 CHLORIDE 102 CARBON DIOXIDE 28 ANION GAP 9 UREA NITROGEN 8 CREATININE 0.74 GLUCOSE 123 (*) CALCIUM 9.2 AST (SGOT) 30 ALT 36 (*) ALKALINE PHOSPHATASE 70 ALBUMIN 4.0 BILIRUBIN, TOTAL 0.1 (*) TOTAL PROTEIN 7.1 eGFR >90.0 LIPASE - Abnormal LIPASE 405 (*) MAGNESIUM - Normal MAGNESIUM 1.9 CBC (HEMOGRAM) - Normal Auto WBC 8.7 RBC 4.80 Hemoglobin 14.6 Hematocrit 43.0 MCV 89.6 MCH 30.4 MCHC 34.0 RDW 11.9 Platelets 259 MPV 10.1 COMPLETE URINALYSIS - Normal Color, Urine Light Yellow Clarity, Urine Clear pH, Urine 7.0 Leukocytes, Urine Negative Nitrite, Urine Negative Protein, Urine Negative Glucose, Urine Normal Bilirubin, Urine Negative Ketones, Urine Negative Urobilinogen, Urine Normal Blood, Urine Negative SPECIFIC GRAVITY OF URINE (NUMERIC) 1.014 LACTIC ACID WITH REFLEX - Normal LACTIC ACID 1.5 COMPLETE URINALYSIS WITH REFLEX TO CULTURE Narrative: The following orders were created for panel order Urinalysis complete with reflex to Culture. Procedure Abnormality Status --------- ------ Complete Urinalysis[[id number]] Normal Final result Please view results for these tests on the individual orders. HCG QUANTITATIVE BLOOD HCG QUANTITATIVE <2 Narrative: Values in should double every 2 to 3 days for the first 6 weeks. Elevated concentrations of human chorionic gonadotropin (hCG) measured in the first trimester of are observed in normal , but may serve as an indication of chorionic carcinoma, hydatiform mole, or multiple . Decreasing hCG concentrations indicate threatened or missed , recent termination of , ectopic , gestosis or intrauterine . Tyra- and postmenopausal females may have detectable hCG concentrations (< or = to 14 mIU/mL) due to pituitary production of hCG. Serum follicle-stimulating hormone measurement may aid in ruling-out in this population. Cutoffs of greater than 20 to 45 mIU/mL have been suggested and are method dependent. False-elevations (called phantom human chorionic gonadotropin: hCG) may occur with patients who have human antianimal or heterophilic antibodies. Some specimens may not dilute linearly due to abnormal forms of hCG. Elevated hCG concentrations not associated with are found in patients with other diseases such as tumors of the germ cells, ovaries, bladder, pancreas, stomach, lungs, and liver. This test is not intended to detect or monitor tumors or gestational trophoblastic disease. All other labs were within normal range or not returned as of this dictation. EMERGENCY DEPARTMENT COURSE and DIFFERENTIAL DIAGNOSIS/MDM: Vitals: Vitals: 06/24/23 2347 06/24/23 2352 06/24/23 2357 06/25/23 0002 BP: 101/67 101/67 106/58 Pulse: 102 92 93 106 Resp: Temp: TempSrc: SpO2: 100% 100% 97% Diagnoses as of 06/25/23 0032 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, chronic, right upper quadrant Elevated lipase Nausea and vomiting, unspecified vomiting type The patient presented with chief complaint of with chief complaint of with a year and a half of abdominal pain patient states worsening symptoms since getting a HIDA scan 2 days ago. She complains of right upper quadrant abdominal pain states pain waxes and wanes in severity states when he gets severe her hands will cramp up and she will get muscle spasming in various locations. She has had an extensive workup as an outpatient that showed normal HIDA scan, she had an ultrasound over a year ago she had an EGD and a colonoscopy that were normal.. The differential diagnosis associated with this patient's presentation includes cholelithiasis, cholecystitis, pancreatitis, chronic abdominal pain. Our workup consisted of ordering/reviewing: CBC, CMP, lactate, lipase, urinalysis, hCG, magnesium, right upper quadrant ultrasound. Diagnostic tests considered but not performed: none To aid in management, I performed an independent interpretation of none. I also reviewed external records from reviewed patient's hepatobiliary scan done 2 days ago which was negative. I discussed their care with none. Consideration for escalation of care with: Likely discharged home, patient's lipase is only slightly elevated at 405 while her gallbladder appears normal and the rest of her labs are normal will obtain CT scan because the pancreas is obscured on the ultrasound by overlying bowel gas however if the CT is negative anticipate discharge home she can follow-up with her surgery referral and her PCP and I encouraged cessation of marijuana use. The patient will be discharged. Patient is in agreement with this plan. Medications sodium chloride 0.9 % bolus 1,000 mL (1,000 mL IntraVENous New Bag 06/24/232229) morphine injection 4 mg (4 mg IntraVENous Given 06/24/232234) ondansetron (Zofran) injection 4 mg (4 mg IntraVENous Given 06/24/232231) iopamidol (Isovue-370) 76 % injection 100 mL (75 mL IntraVENous Given 06/24/232355) metoclopramide (Reglan) injection 10 mg (10 mg IntraVENous Given 06/25/23 0017) diphenhydrAMINE (BENADryl) injection 25 mg (25 mg IntraVENous Given 06/25/23 0017) REVAL: CRITICAL CARE TIME None CONSULTS: None PROCEDURES: Unless otherwise noted below, none Procedures Patients symptoms are consistent with sepsis, severe sepsis, or septic shock (If yes use .sepsiscoremeasure): no FINAL IMPRESSION 1. 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, chronic, right upper quadrant 2. Elevated lipase 3. Nausea and vomiting, unspecified vomiting type DISPOSITION Discharge 06/25/2023 12:31:09 AM PATIENT REFERRED TO: Nunu Cortez MD [facility] Ernestine Roche [facility] [id number] Schedule an appointment as soon as possible for a visit in 1 week DISCHARGE MEDICATIONS: New Prescriptions No medications on file (Comment: Please note this report has been produced using speech recognition software and may contain errors related to that system including errors in grammar, punctuation, and spelling, as well as words and phrases that may be inappropriate. If there are any questions or concerns please feel free to contact the dictating provider for clarification.) CHRIS Butt CNP (electronically signed) Emergency Medicine Provider CHRIS Butt CNP 06/25/23 0032 Patient presents to the ED due to abdominal pain and other strange symptoms after having a HIDA scan at [facility] yesterday. Patient states that since the scan her extremities have been falling asleep. Patient is mostly complaining of abdominal pain, but wants to get the other strange symptoms checked out. Patient also states I feel like I have been getting electrocuted through my body today and that started this morning. Patient ambulatory through triage. documented in this encounter [facility] 06-24-2023 Emergency department Triage note Patient presents to the ED due to abdominal pain and other strange symptoms after having a HIDA scan at [facility] yesterday. Patient states that since the scan her extremities have been falling asleep. Patient is mostly complaining of abdominal pain, but wants to get the other strange symptoms checked out. Patient also states I feel like I have been getting electrocuted through my body today and that started this morning. Patient ambulatory through triage. [facility] 06-24-2023 Physician Emergency department Note EMERGENCY DEPARTMENT ENCOUNTER Pt Name: Jerrica Suggs Birthdate 1995 Date of evaluation: 06/24/2023 ED Provider: Ayad Fonseca APRN - TREV I have evaluated this patient on my own, per my scope of practice with an attending physician available for consultation. CHIEF COMPLAINT Chief Complaint Patient presents with Abdominal Pain HISTORY OF PRESENT ILLNESS (Location/Symptom, Timing/Onset, Context/Setting, Quality, Duration, Modifying Factors, Severity) Note limiting factors. I wore appropriate PPE for the entirety of this encounter. HPI Jerrica Suggs is a 28 y.o. who presents to the emergency department with chief complaint of with a year and a half of abdominal pain patient states worsening symptoms since getting a HIDA scan 2 days ago. She complains of right upper quadrant abdominal pain states pain waxes and wanes in severity states when he gets severe her hands will cramp up and she will get muscle spasming in various locations. She has had an extensive workup as an outpatient that showed normal HIDA scan, she had an ultrasound over a year ago she had an EGD and a colonoscopy that were normal. Nursing Notes were reviewed. Limitations to history: None Outside historians: None REVIEW OF SYSTEMS Review of Systems Constitutional: Negative for activity change, appetite change, chills and fever. HENT: Negative for congestion, nosebleeds, sinus pain and trouble swallowing. Eyes: Negative for pain and visual disturbance. Respiratory: Negative for cough, chest tightness and shortness of breath. Cardiovascular: Negative for chest pain and palpitations. Gastrointestinal: Positive for abdominal pain. Negative for abdominal distention, blood in stool, diarrhea, nausea and vomiting. Genitourinary: Negative for dysuria, hematuria, pelvic pain, vaginal bleeding, vaginal discharge and vaginal pain. Musculoskeletal: Negative for arthralgias, back pain and myalgias. Skin: Negative for rash and wound. Neurological: Negative for syncope, weakness, light-headedness and headaches. Hematological: Negative for adenopathy. Psychiatric/Behavioral: Negative for agitation and confusion. All other systems reviewed and are negative. Pertinent positives and negatives as per HPI. 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 DICYCLOMINE (BENTYL) 20 MG TABLET HYOSCYAMINE (LEVSIN) 0.125 MG SL TABLET DISSOLVE 1 TABLET UNDER THE TONGUE EVERY 4 HOURS NEEDED. MUPIROCIN (BACTROBAN) 2 % OINTMENT every 12 hours. ONDANSETRON ODT (ZOFRAN-ODT) 8 MG DISINTEGRATING TABLET PROMETHAZINE (PHENERGAN) 12.5 MG TABLET Take 12.5 mg by mouth every 6 hours as needed. VENLAFAXINE XR (EFFEXOR XR) 150 MG 24 HR CAPSULE ALLERGIES Aspirin, Ibuprofen, Nsaids, Hydrocodone-acetaminophen, and Dicyclomine FAMILY HISTORY Family History Problem Relation Name Age of Onset High Blood Pressure Mother Multiple sclerosis Mother Cancer Paternal Grandmother SOCIAL HISTORY Social History Socioeconomic History Marital status: Tobacco Use Smoking status: Former Packs/day: .5 Types: Cigarettes Quit date: 2019 Years since quittin.1 Smokeless tobacco: Never Vaping Use Vaping Use: Never used Substance and Sexual Activity Alcohol use: No Drug use: No SCREENINGS PHYSICAL EXAM ED Triage Vitals [06/24/232127] Temp Heart Rate Resp BP 36.9 C (98.5 F) 110 18 125/84 SpO2 Temp Source Heart Rate Source Patient Position 100 % Temporal Monitor -- BP Location FiO2 (%) -- -- Physical Exam Vitals and nursing note reviewed. Constitutional: General: She is not in acute distress. Appearance: Normal appearance. She is normal weight. She is not ill-appearing or toxic-appearing. HENT: Head: Normocephalic and atraumatic. Right Ear: External ear normal. Left Ear: External ear normal. Mouth/Throat: Mouth: Mucous membranes are moist. Pharynx: Oropharynx is clear. Eyes: Extraocular Movements: Extraocular movements intact. Conjunctiva/sclera: Conjunctivae normal. Pupils: Pupils are equal, round, and reactive to light. Cardiovascular: Comments: Regular rate and rhythm, normal S1-S2, no murmurs noted. Radial pulses 2+ and symmetric. Pulmonary: Effort: Pulmonary effort is normal. No respiratory distress. Breath sounds: Normal breath sounds. No stridor. No wheezing or rhonchi. Abdominal: Comments: Abdomen is soft and nondistended there is tenderness in the right upper quadrant without guarding or rebound tenderness, bowel sounds are normal. Musculoskeletal: General: No swelling, tenderness, deformity or signs of injury. Normal range of motion. Cervical back: Normal range of motion and neck supple. No rigidity or tenderness. Lymphadenopathy: Cervical: No cervical adenopathy. Skin: General: Skin is warm and dry. Capillary Refill: Capillary refill takes less than 2 seconds. Coloration: Skin is not jaundiced or pale. Findings: No bruising or erythema. Neurological: General: No focal deficit present. Mental Status: She is alert and oriented to person, place, and time. Mental status is at baseline. Cranial Nerves: No cranial nerve deficit. Sensory: No sensory deficit. Motor: No weakness. Coordination: Coordination normal. Psychiatric: Mood and Affect: Mood normal. DIAGNOSTIC RESULTS Procedures/EKG: EKG was reviewed by myself. Physician EKG interpretation can be found in [facility] RADIOLOGY (Per Emergency Physician): Interpretation per the Radiologist below, if available at the time of this note: CT abdomen pelvis w contrast Final Result No acute abdominal or pelvic findings to explain symptoms. 1.2 cm ovoid hypodense focus inferior to the mid pancreatic body, unchanged from prior exam. This may represent a prominent lymph node or peripancreatic cyst. Report Dictated on Electronically Signed By: Esvin Brower DO Electronically Signed Date/Time: 06/25/2023 12:15 AM EST US abdomen limited Final Result 1. No abnormality seen. Report Dictated on Electronically Signed By: Jeff James MD Electronically Signed Date/Time: 06/24/2023 11:03 PM EST ED BEDSIDE ULTRASOUND: Performed by ED Physician - none LABS: Labs Reviewed COMPREHENSIVE METABOLIC PANEL - Abnormal Result Value SODIUM 139 POTASSIUM 3.5 CHLORIDE 102 CARBON DIOXIDE 28 ANION GAP 9 UREA NITROGEN 8 CREATININE 0.74 GLUCOSE 123 (*) CALCIUM 9.2 AST (SGOT) 30 ALT 36 (*) ALKALINE PHOSPHATASE 70 ALBUMIN 4.0 BILIRUBIN, TOTAL 0.1 (*) TOTAL PROTEIN 7.1 eGFR >90.0 LIPASE - Abnormal LIPASE 405 (*) MAGNESIUM - Normal MAGNESIUM 1.9 CBC (HEMOGRAM) - Normal Auto WBC 8.7 RBC 4.80 Hemoglobin 14.6 Hematocrit 43.0 MCV 89.6 MCH 30.4 MCHC 34.0 RDW 11.9 Platelets 259 MPV 10.1 COMPLETE URINALYSIS - Normal Color, Urine Light Yellow Clarity, Urine Clear pH, Urine 7.0 Leukocytes, Urine Negative Nitrite, Urine Negative Protein, Urine Negative Glucose, Urine Normal Bilirubin, Urine Negative Ketones, Urine Negative Urobilinogen, Urine Normal Blood, Urine Negative SPECIFIC GRAVITY OF URINE (NUMERIC) 1.014 LACTIC ACID WITH REFLEX - Normal LACTIC ACID 1.5 COMPLETE URINALYSIS WITH REFLEX TO CULTURE Narrative: The following orders were created for panel order Urinalysis complete with reflex to Culture. Procedure Abnormality Status --------- ------ Complete Urinalysis[[id number]] Normal Final result Please view results for these tests on the individual orders. HCG QUANTITATIVE BLOOD HCG QUANTITATIVE <2 Narrative: Values in should double every 2 to 3 days for the first 6 weeks. Elevated concentrations of human chorionic gonadotropin (hCG) measured in the first trimester of are observed in normal , but may serve as an indication of chorionic carcinoma, hydatiform mole, or multiple . Decreasing hCG concentrations indicate threatened or missed , recent termination of , ectopic , gestosis or intrauterine . Tyra- and postmenopausal females may have detectable hCG concentrations (< or = to 14 mIU/mL) due to pituitary production of hCG. Serum follicle-stimulating hormone measurement may aid in ruling-out in this population. Cutoffs of greater than 20 to 45 mIU/mL have been suggested and are method dependent. False-elevations (called phantom human chorionic gonadotropin: hCG) may occur with patients who have human antianimal or heterophilic antibodies. Some specimens may not dilute linearly due to abnormal forms of hCG. Elevated hCG concentrations not associated with are found in patients with other diseases such as tumors of the germ cells, ovaries, bladder, pancreas, stomach, lungs, and liver. This test is not intended to detect or monitor tumors or gestational trophoblastic disease. All other labs were within normal range or not returned as of this dictation. EMERGENCY DEPARTMENT COURSE and DIFFERENTIAL DIAGNOSIS/MDM: Vitals: Vitals: 06/24/23 2347 06/24/23 2352 06/24/23 2357 06/25/23 0002 BP: 101/67 101/67 106/58 Pulse: 102 92 93 106 Resp: Temp: TempSrc: SpO2: 100% 100% 97% Diagnoses as of 06/25/23 0032 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, chronic, right upper quadrant Elevated lipase Nausea and vomiting, unspecified vomiting type The patient presented with chief complaint of with chief complaint of with a year and a half of abdominal pain patient states worsening symptoms since getting a HIDA scan 2 days ago. She complains of right upper quadrant abdominal pain states pain waxes and wanes in severity states when he gets severe her hands will cramp up and she will get muscle spasming in various locations. She has had an extensive workup as an outpatient that showed normal HIDA scan, she had an ultrasound over a year ago she had an EGD and a colonoscopy that were normal.. The differential diagnosis associated with this patient's presentation includes cholelithiasis, cholecystitis, pancreatitis, chronic abdominal pain. Our workup consisted of ordering/reviewing: CBC, CMP, lactate, lipase, urinalysis, hCG, magnesium, right upper quadrant ultrasound. Diagnostic tests considered but not performed: none To aid in management, I performed an independent interpretation of none. I also reviewed external records from reviewed patient's hepatobiliary scan done 2 days ago which was negative. I discussed their care with none. Consideration for escalation of care with: Likely discharged home, patient's lipase is only slightly elevated at 405 while her gallbladder appears normal and the rest of her labs are normal will obtain CT scan because the pancreas is obscured on the ultrasound by overlying bowel gas however if the CT is negative anticipate discharge home she can follow-up with her surgery referral and her PCP and I encouraged cessation of marijuana use. The patient will be discharged. Patient is in agreement with this plan. Medications sodium chloride 0.9 % bolus 1,000 mL (1,000 mL IntraVENous New Bag 06/24/232229) morphine injection 4 mg (4 mg IntraVENous Given 06/24/232234) ondansetron (Zofran) injection 4 mg (4 mg IntraVENous Given 06/24/232231) iopamidol (Isovue-370) 76 % injection 100 mL (75 mL IntraVENous Given 06/24/236) metoclopramide (Reglan) injection 10 mg (10 mg IntraVENous Given 06/25/23 0017) diphenhydrAMINE (BENADryl) injection 25 mg (25 mg IntraVENous Given 06/25/237) REVAL: CRITICAL CARE TIME None CONSULTS: None PROCEDURES: Unless otherwise noted below, none Procedures Patients symptoms are consistent with sepsis, severe sepsis, or septic shock (If yes use .sepsiscoremeasure): no FINAL IMPRESSION 1. 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, chronic, right upper quadrant 2. Elevated lipase 3. Nausea and vomiting, unspecified vomiting type DISPOSITION Discharge 06/25/2023 12:31:09 AM PATIENT REFERRED TO: Nunu Cortez MD [facility] [place] [address] Schedule an appointment as soon as possible for a visit in 1 week DISCHARGE MEDICATIONS: New Prescriptions No medications on file (Comment: Please note this report has been produced using speech recognition software and may contain errors related to that system including errors in grammar, punctuation, and spelling, as well as words and phrases that may be inappropriate. If there are any questions or concerns please feel free to contact the dictating provider for clarification.) CHRIS Butt CNP (electronically signed) Emergency Medicine Provider CHRIS Butt CNP 06/25/2331 [facility] 06-24-2023 Telephone encounter Note Name of caller: Jerrica Contact phone number: [phone] (J) Relationship to Patient: patient Provider: Dr. Posey Practice: [facility] Chief Complaint/Reason for Call: Jerrica is requesting a call back to schedule a new patient appointment with 06/24/23 referral for Dx: Postprandial RUQ pain. Please contact Jerrica and advise. Best time of day caller can be reached: Any Patient advised that office/PCP has 24-48 business hours to return their call: Yes [facility] 06-24-2023 Miscellaneous Notes Name of caller: Jerrica Contact phone number: [phone] (Q) Relationship to Patient: patient Provider: Dr. Posey Practice: [facility] Chief Complaint/Reason for Call: Jerrica is requesting a call back to schedule a new patient appointment with 06/24/23 referral for Dx: Postprandial RUQ pain. Please contact Jerrica and advise. Best time of day caller can be reached: Any Patient advised that office/PCP has 24-48 business hours to return their call: Yes documented in this encounter [facility] 06-24-2023 Note Talked with Jerrica. Wanting evaluation by surgeon as imaging as not found clear etiology of symptoms. Will place referral to ALS. [facility] 06-23-2023 Miscellaneous Notes HIDA scan shows normal biliary function in response to CCK. documented in this encounter [facility] 06-23-2023 Progress note Formatting of t his note might be different from the original. HIDA scan shows normal biliary function in response to CCK. [facility] Work Phone: 06-18-2023 Miscellaneous Notes Faxed clearance form. Will await dental extraction date and schedule DDAVP at [place]. The oral hygienist office ([facility]) sent a form requesting advice for management of Jerrica's von Willebrand disease in setting of upcoming dental extractions under IV sedation. I would recommend: Amicar 5 grams (20 mL) every 6 hours for 4 doses (1 day) starting as soon as dental procedure is done, and continuing every 6 hours for additional bleeding as needed would be reasonable. Intravenous DDAVP (desmopressin) 0.3 mcg/kg dose once prior to dental extraction. We can repeat the dose the next day if bleeding is severe. Would Jerrica like to be set up for IV DDAVP? Does she need a new prescription for Amicar? Would she like to come in for an in-person, or be scheduled for a video, visit? Thank you. documented in this encounter [facility] 06-16-2023 Discharge summary Note Date/Time June 16, 2023 12:03pm [facility] Medical Records Department [address] [place] [address] Emergency Department Summary 06/16/23 MR#: [id number] Acct: [id number] Name: JERRICA SUGGS Rep #:[id number] : 1995 28 From: Branden Huang MD PCP: Dr. Nunu Cortez MD Status:REG E R Location: ED HPI HPI - GI History of Present Illness Chief Complaint: Abd Pain Detail of Chief Complaint: Nausea, vomiting and diarrhea. Informant: patient Abdominal Pain/Flank Pain Onset: Month(s) Context: Gradual Onset Timing: Intermittent Location: Epigastric Current Severity: Mild Maximum Severity: Mild Worsened by: Nothing Nausea/Vomiting/Emesis GI Symptom: Positive for Nausea and Vomiting Onset: Days and Month(s) Severity: Mild Diarrhea/Melena/Hematochezia GI Symptom: Positive for Diarrhea; Negative for Melena or Hematochezia Onset: Today Stool Quality: Positive for Watery Severity: Moderate Associated Symptoms Associated Symptoms: Negative for Dysuria, Frequency, Hematuria or Urgency Narrative Narrative: 28-year-old female history of IBS has had extensive workup by GI doctors at the [facility] and also currently seeing GI at [facility]. She had a CAT scan herein February that showed enteritis. She has had upper and lower endoscopy through the [facility] but was unremarkable with a biopsy. She had a recent gastric emptying study at [facility] which was negative and has a pending HIDAscan next week. Patient states she has had nausea and vomiting since Wednesday as her diarrhea today. No fever. Over the last 6 months she has had a 53 pound weight loss. She has Zofran at home and Phenergan for nausea. Her only prior abdominal surgery was ureter reimplantation at a very young age and a prior 7 years ago. Prior similar symptoms: Yes Recent Illness/Hospitalization: No PFSH PFSH Medical History Gastroenteritis IBS (irritable bowel syndrome) Von Willebrand disease Home Medications alprazolam 0.5 mg tablet (Xanax) 0.5 mg PO TID PRN abdominal pain 3 days #12 tabs 03/14/23 [Rx Last Taken Unknown] dicyclomine 20 mg tablet 20 mg PO TID PRN abdominal pain #30 tabs 03/14/23 [Rx Last Taken Unknown] ondansetron 4 mg disintegrating tablet 4 mg PO Q8H PRN PRN Nausea #14 tabs 03/14/23 [Rx Last Taken Unknown] ondansetron 8 mg disintegrating tablet 8 mg PO Q12H PRN nausea and vomiting 03/14/23 [History Last Taken Unknown] venlafaxine 37.5 mg capsule,extended release 24 hr 37.5 mg PO DAILY 03/14/23 [History Last Taken 03/14/23] Allergy/AdvReac Type Severity Reaction Status Date / Time dicyclomine Allergy Mild palpitation Verified 06/16/23 12:03 s aspirin AdvReac Severe Bleeding Verified 06/16/23 11:06 ibuprofen AdvReac Severe Bleeding Verified 06/16/23 11:06 naproxen AdvReac Severe Bleeding Verified 06/16/23 11:06 Surgical History Hx of section Hx of tonsillectomy Social History Smoking Status: Never smoker ROS ROS ED ROS Narrative Nausea, vomiting and diarrhea. Abdominal cramping. Review of Systems ROS Unobtainable: Denies due to encephalopathy Constitutional Constitutional ED: Denies chills or fever(s) ENT ENT ED: Denies ear pain Cardiovascular Cardiovascular: Denies chest pain Respiratory/Chest Respiratory/Chest: Denies cough or dyspnea Gastrointestinal Gastrointestinal: Reports abdominal pain, constipation, diarrhea, nausea and vomiting; Denies melena Genitourinary Genitourinary ED: Denies dysuria or hematuria Musculoskeletal Musculoskeletal: Denies arthralgias Integumentary Denies abscess Neurologic Neurologic: Denies headache(s) Psychiatric Psychiatric: Denies anxiety Endocrine Endocrinology: Denies polydipsia Hematologic/Lymphatic Hematologic/Lymphatic: Denies easy bleeding Allergic/Immunologic Allergic/Immunologic ED: Denies tongue swelling or urticaria EXAM Physical Exam Narrative Exam Narrative: Well-appearing 28-year-old female. Vital signs stable she is tachycardic 135. H EENT exam unremarkable. Moist with membranes. Neck nontender. Lungs clear to auscultation bilaterally. Heart tachycardic rate about 110 on my exam no murmur. Chest wall nontender. Abdomen soft, nontender nondistended normal bowel sounds no peritoneal signs. No hernia or mass. No obstruction. No rightupper or right lower quadrant tenderness. Extremities moves all 4. Nontender no edema. Neurologically awake alert no focal motor deficits. Back nontender. Neurologically she is awake and alert. She is a very benign exam. She has a totally benign abdominal exam. She is already received almost a liter of IV normal saline. Const Vital Signs: 06/16/23 11:04 06/16/23 12:11 Temperature 97.4 F L Temperature Source Temporal Pulse Rate 135 H 89 Respiratory Rate 18 18 Blood Pressure 119/85 H 115/65 Blood Pressure Mean 96 81 Pulse Ox 100 100 Oxygen Delivery Method Room Air Room Air Positive well nourished and well developed; Negative for cachectic, contracturesor unkempt General Appearance ED: well developed; Negative for unkempt, cachectic, contractures or pallor Nutritional Appearance: Negative for cachectic HEENT Reports moist mucous membranes; Denies dry mucous membranes normocephalic and atraumatic; Negative for trauma or tenderness Mouth ED: No dry mucous membranes Mouth: No dry mucous membranes Eyes PERRL and EOMs intact bilaterally General Eye ED: Negative for pale conjunctiva, scleral icterus or other Neck supple and no JVD General: Negative for tenderness Carotids: Negative for other Lymph Lymphatic: Negative for other Resp normal respiratory effort and clear to auscultation bilaterally Effort and Inspection: Negative for respiratory distress Auscultation: Negative for rales, rhonchi or wheezes Cardio regular rhythm, S1 normal heart sound, S2 normal heart sound and no murmurs; Negative for regular rate Rate: tachycardic GI non-tender, non-distended and no masses Inspection: Negative for abdominal distention Auscultation: normoactive bowel sounds Palpation: soft; Negative for tender, guarding or rebound tenderness present Back/Spine no CVA tenderness General Back: Negative for CVA tenderness Cervical Spine: Negative for cervical spine tenderness Thoracic Spine / Upper Back: Negative for thoracic spinal tenderness Lumbar Spine / Lower Back: Negative for lumbar spinal tenderness Coccyx: Negative for other Extremity full ROM General Extremety ED: Negative for edema, tenderness or other findings General Extremity: Negative for edema or other findings Neuro CN's II-XII intact bilaterally and moves all extremities Sensorium / Orientation: alert, oriented to person, oriented to place and oriented to time; Negative for orientation impaired, confused, lethargic or stuporous Motor Exam: strength 5/5 throughout Psych mental status grossly normal and thought process normal Appearance: Negative for unkempt Attitude: No agitated Mood & Affect: Negative for depressed, anxious or tearful Skin no wounds General Skin Exam: Negative for jaundice or pallor Lesions: no lesions Rashes: no rashes Trauma: Negative for abrasion Nails: Negative for discolored MDM MDM MDM Narrative Medical decision making narrative: Well-appearing 28-year-old female history of IBS and undergoing significant workup through GI at 2 other hospitals that currently has not found any other diagnoses. Complaining of nausea vomiting and diarrhea today. Treated with IV fluids. Screening labs to be obtained. She understands that we probably will not make any new diagnoses today. Continue outpatient follow-up. She will be given Zofran for nausea and Bentyl for pain. Patient was initially written for Bentyl which she said it does not help her anddid not want to take it. She was given 4 mg IV morphine. Repeat exam she is doing well at 1:43 PM. She will be discharged to home. Follow-up with her primary care physician and her GI doctors at [facility]. History & Record Review Discussion w/independent historian: Patient Additional record(s) reviewed:: Prior inpatient record, Prior outpatient record,Prior ED visit and Prior labs Lab Data Attestation: I reviewed the patient's lab results. Lab results narrative: CBC normal. White count 10. H&H 15 and 44. Platelets 260. Electrolytes show sodium 139 gap of 2. Normal BUN and creatinine. Liver enzymes unremarkable. Lipase normal at 26. Labs: Laboratory Results - last 24 hr 06/16/23 11:20 WBC 10.2 RBC 5.00 Hgb 15.2 H Hct 44.7 MCV 89.4 MCH 30.4 MCHC 34.0 RDW Std Deviation 38.6 RDW Coeff of Johnny 11.9 Plt Count 260 MPV 10.9 Immature Gran % (Auto) 0.400 Neut % (Auto) 74.1 H Lymph % (Auto) 16.4 L [place] % (Auto) 5.7 Eos % (Auto) 2.8 Baso % (Auto) 0.6 Absolute Neuts (auto) 7.5 Absolute Lymphs (auto) 1.66 Nucleated RBC % 0 Sodium 139 Potassium 3.6 Chloride 108 H Carbon Dioxide 29.0 Anion Gap 2 L BUN 9 Creatinine 0.65 Estim Creat Clear Calc 114.49 Est GFR (MDRD) Af Amer 140 Est GFR (MDRD) Non-Af 116 BUN/Creatinine Ratio 13.8 Glucose 86 Calcium 8.9 Total Bilirubin 0.50 AST 18 ALT 21 Alkaline Phosphatase 68 Total Protein 7.6 Albumin 3.8 Globulin 3.8 Albumin/Globulin Ratio 1.0 Lipase 26 Discharge Plan Triage Chief Complaint: Abd Pain ED Provider: Branden Huang Dx/Rx/DC Orders Clinical Impression: Nausea, vomiting, and diarrhea, History of IBS, History of von Willebrand's disease, 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 Instructions: ED Abdominal Pain Unkn Cause Fem Prescriptions: No Action venlafaxine 37.5 mg capsule,extended release 24hr 37.5 mg PO DAILY ondansetron 8 mg tablet,disintegrating 8 mg PO Q12H PRN (Reason: nausea and vomiting) dicyclomine 20 mg tablet 20 mg PO TID PRN (Reason: abdominal pain) Qty: 30 0RF ondansetron 4 mg tablet,disintegrating 4 mg PO Q8H PRN PRN (Reason: Nausea) Qty: 14 0RF alprazolam [Xanax] 0.5 mg tablet 0.5 mg PO TID PRN (Reason: abdominal pain) 3 Days Qty: 12 0RF Primary Care Provider: Nunu Cortez Referrals: Nunu Cortez MD [Primary Care Provider] - As Needed Activity Restrictions/Additional Instructions: Use your nausea medication at home as needed. Plenty of fluids and rest. Follow-up with your GI doctors at [facility] for further evaluation [facility]. Disposition Disposition: Home, Self Care What to do if you have Problems For any increased pain, shortness of breath, bleeding, nausea or vomiting, chestpain, or any unexpected problems, contact your Primary Care Provider. Call [facility] ([phone]) or report to the closest Emergency Room. Call 911 if necessary. 06/16/23 1346 <Electronically signed by Branden Huang MD> Cosigner Signature (if applicable): CC: Dr. Nunu Cortez MD ~ Signed [facility] Work Phone: [phone]) 173-454302-06-2024 Telephone encounter Note* Telephone Encounter - CHRIS Mcmanus CNP - 06/01/2023 1:06 PM EST Reviewed. Thank you! [id number] Miscellaneous Notes* Telephone Encounter - CHRIS Mcmanus CNP - 06/01/2023 1:06 PM EST Reviewed. Thank you! * Telephone Encounter - Mi Anaya MA - 06/01/2023 11:37 AM EST Received records of CT patient had completed at [facility] Scanned into media for provider to review. Thank you! documented in this [facility]02-06-2024 Telephone encounter Note* Telephone Encounter - Mi Anaya MA - 06/01/2023 11:37 AM EST Received records of CT patient had completed at [facility] Scanned into media for provider to review. Thank you! [id number] History of Present illness Narrative* Mario Fernando, CHRIS - TREV - 05/26/2023 10:00 AM EST Images from the original note were not included. [facility] [address] [place] [facility] [address] Dept: [phone] Dept Loc: [phone] Visit type: New Reason for Visit: New Patient, Abdominal Pain, and Irritable Bowel Syndrome (States she has a current diagnosis/) Assessment and Plan Problem List Items Addressed This Visit None Visit Diagnoses Nausea and vomiting, unspecified vomiting type - Primary Relevant Orders NM gastric emptying solid Postprandial RUQ pain Relevant Orders NM hepatobiliary scan with pharm agent w/cck Irritable bowel syndrome with both constipation and diarrhea Unintentional weight loss --patient with multiple GI symptoms ongoing ~ 5 years, progressively worsening; symptoms affecting OQL and she has had significant associated reported weight- loss of ~ 50# --prior work-up at [facility] 2022-EGD, colonoscopy, RUQ US without findings to explain symptoms --request CT report from [facility] (CT A/P 02/2023) --04/20/2023 CBC, CMP, sed rate, and TSH-WNL --patient has tried numerous medications for IBS without improvement in sx- amitriptyline, nortriptyline, dicyclomine, levsin; most recently started Effexor with PCP --currently using zofran and phenergan for n/v --recommend 4 hour GES to r/o gastroparesis; if positive will refer to Gastroparesis clinic; patient does not want trial of metoclopramide --recommend HIDA to r/o biliary dyskinesia due to postprandial RUQ pain and intermittent flare ups of more severe pain, ?biliary colic --patient dissatisfied today's appointment is not with physician; discussed scheduling in [place] office with MD, patient prefers not to go to [place]; discussed alternative referral to [facility] vs [facility] main, patient declined at this time Advised patient to call office with new or worsening symptoms, questions, or concerns. Patient verbalized understanding and agreement of plan. Follow up in about 6 weeks (around 07/07/2023). Subjective HPI Patient is referred by Dr. Cortez, re: unspecified abdominal pain. Patient with pmhx Von Willebrand disease type 1-DDAVP responder. She is accompanied to visit by her mother. Patient with multiple GI symptoms ongoing for ~ 5 years, progressively worsening. Patient wanting to see MD, not JACKELYN. Expressed frustration no MD clinic in [place] office. She has previously been evaluated at [facility]-RUQ US, EGD and colonoscopy 2022 without findings to explain symptoms. Most recent GI visit at [facility] 10/01/22. HIDA ordered but not completed.Patient expresses frustration with lack of findings on prior testing and incurred cost. She had related ED visit at [facility] February 2023-CT A/P with contrast completed (report unavailable, but she provides impression on phone-dilated small bowel loops LUQ- possible enteritis-no obstruction). [facility] at [place] was consulted while in ED and capsule test was suggested. Presently patient reports nausea, vomiting, and abdominal pain. 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 is often post-prandial, more recently has been localized to RUQ. Symptoms are daily. Symptoms are interfering with sleepand affecting QOL. Patient often unable to participate in family events due to symptoms. Has early satiety, feels disproportionately full after eating small amount. Using zofran daily. Uses phenerganor Xanax 5 out of 7 nights per week. States she lost 50# over the past year due to symtpoms. Previously was having diarrhea, for the past couple months has been primarily having constipation. No hematochezia or melena. Has metamucil and Miralax at home-has not yet tried consistently-notes she had adverse reaction to prior laxative so is hesitant. Prior treatments: No improvement in amitriptyline or nortriptyline. Recently started on Effexor. Dicyclomine caused palpitations. Levsin lost efficacy. Does not think she took previously prescribed omeprazole-denies GERD/reflux sx. Cut out lactose-no change in sx. Tried low FODMAP-no change in sx. No family hx IBD or colon cancer. No NSAID use. No tobacco use. No marijuana use. Review of Systems Constitutional: Positive for appetite change and unexpected weight change. HENT: Negative for trouble swallowing and voice change. Respiratory: Negative for shortness of breath. Cardiovascular: Negative for chest pain. Gastrointestinal: Positive for abdominal pain, constipation, nausea and vomiting. Negative for abdominal distention, anal bleeding, blood in stool, diarrhea and rectal pain. Genitourinary: Negative for difficulty urinating. Skin: Negative for color change. Neurological: Negative for weakness. Allergies Allergen Reactions Aspirin Other Due to having a bleeding disorder Ibuprofen Other Due to having a bleeding disorder Nsaids Other Due to bleeding disorder. Hydrocodone-Acetaminophen Itching Makes face itch. Outpatient Medications Prior to Visit Medication Sig Dispense Refill acetaminophen (Tylenol) 325 MG tablet Take by mouth. ondansetron ODT (Zofran-ODT) 8 MG disintegrating tablet promethazine (Phenergan) 12.5 MG tablet Take 12.5 mg by mouth every 6 hours as needed. venlafaxine XR (Effexor XR) 150 MG 24 hr capsule dicyclomine (Bentyl) 20 MG tablet hyoscyamine (Levsin) 0.125 MG SL tablet DISSOLVE 1 TABLET UNDER THE TONGUE EVERY 4 HOURS NEEDED. mupirocin (Bactroban) 2 % ointment every 12 hours. No facility-administered medications prior to visit. Patient Active Problem List Diagnosis Date Noted Heart palpitations 06/18/2016 Overview Note: 06/17/16- [facility]/ Dr Tillman for cardiac palpitations and tachycardia. Taking Inderal 60mg daily. To schedule f/u appt in 3 months. pmc/hrr Von Willebrand disease (HCC) 06/05/2016 Overview Note: 11-19 Referral to [facility] Aw 11/21/15 - has type 1 disease (mild), uses ddavp and amicar prn procedures. appt w/ heme, dr wright 11/22/15. SS Consult scanned 12/24/15. pmc/hrr 11/21/15- [facility] appt 11/27/2015. [facility]/hrr 11/26 [facility] Von Willebrand Type I, mild symptoms, no hx of bleeding w multiple procedures 02/14/16- 18+wk scan- CL=3.4cm, echogenic focus left ventricle of heart. Pmc/hrr 05/22/16 Pt has letter from hem. Gives recommended treatment at delivery and for 1 weeks post delivery. Scanned in chart JG Genital warts 05/12/2016 Overview Note: 04/13/2016 she is very sensitive about having these. And if possible would like them removed prior to delivery. mallory 05/12/16- Appointment scheduled w/ Derm/ Dr Jocy Roman 06/16/16. pmc/hrr Vesicoureteral reflux 03/23/2016 Overview Note: 11-19 referral to [facility] Aw 11/21/15 - sees jermaine ring, dr trenton zavala. E coli uti on 1st pnl - macrobid sensitive. Consider daily prophylaxis w/ 2nd uti. SS 11/26 Recommend daily prophylaxis, shirley perform evaluation of renal function ( serum creatinine, creatinine clearance, baseline proteinuria) 01/10/16- 24hr Creat 0.7, Creatinine 0.58, CMP and CBC NL. Pmc/hrr 03/13/16- urine C&S- negative. pmc/hrr Social History Tobacco Use Smoking status: Former Packs/day: .5 Types: Cigarettes Quit date: 2018 Years since quittin.0 Smokeless tobacco: Never Substance Use Topics Alcohol use: No Family History Problem Relation Name Age of Onset High Blood Pressure Mother Multiple sclerosis Mother Cancer Paternal Grandmother Objective BP 104/73 Pulse 73 Ht 5' 1 (1.549 m) Wt 148 lb 3.2 oz (67.2 kg) BMI 28.00 kg/m Physical Exam Constitutional: Appearance: Normal appearance. She is ill-appearing. HENT: Head: Normocephalic. Eyes: General: No scleral icterus. Cardiovascular: Rate and Rhythm: Normal rate and regular rhythm. Pulmonary: Effort: Pulmonary effort is normal. Breath sounds: Normal breath sounds. Abdominal: General: Bowel sounds are normal. There is no distension. Palpations: Abdomen is soft. There is no mass. Tenderness: There is abdominal tenderness (epigastric ttp). There is no guarding or rebound. Hernia: No hernia is present. Skin: General: Skin is warm and dry. Coloration: Skin is not jaundiced. Neurological: General: No focal deficit present. Mental Status: She is alert and oriented to person, place, and time. Psychiatric: Mood and Affect: Mood normal. Behavior: Behavior normal. Data Reviewed and Summarized Labs: Labs from PCP (in media)-04/20/2023 CBC, CMP, sed rate, and TSH-WNL Lab Results Component Value Date WBC 9.2 07/06/2022 HGB 15.3 07/06/2022 HCT 42.7 07/06/2022 MCV 86.3 07/06/2022 PLT 248 07/06/2022 Lab Results Component Value Date GLUCOSE 80 07/06/2022 CALCIUM 9.3 07/06/2022 NA 139 07/06/2022 K 3.4 (L) 07/06/2022 CO2 29 07/06/2022 CL 104 07/06/2022 BUN 11 07/06/2022 CREATININE 0.70 07/06/2022 Lab Results Component Value Date ALT 30 07/06/2022 AST 35 07/06/2022 ALKPHOS 64 07/06/2022 BILITOT 0.6 07/06/2022 Lab Results Component Value Date LIPASE 38 07/06/2022 Imaging/Testin09/22/[address] Begum Pre-Op/Pre-Procedure Diagnosis: 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 with vomiting Bleeding [place] Post-Op/Post-Procedure Diagnosis: Normal gastroscopy. Biopsies taken to rule out celiac disease. Colonoscopy- small internal hemorrhoids FINAL DIAGNOSIS Duodenum, biopsy: - Benign small bowel mucosa with preserved villous architecture. - Changes of sprue, Whipple's disease or Giardia infection are not seen. 07/06/2022 CT Abdomen/Pelvis wo IV contrast IMPRESSION: 1. No acute intra-abdominal process. 2. Soft tissue stranding and some specks of gas noted in the right gluteal region. Clinical correlation for a history of injection is recommended. Report Dictated on Electronically Signed By: Mendez Mathis Electronically Signed Date/Time: 07/06/2022 4:38 PM EDT 06/10/2022 RUQ US IMPRESSION: Normal sonographic appearance of the right upper quadrant. Roll Tension Tester: GURPREET Transcribe Date/Time: Jun 11 2022 6:04P GEOVANNY Mcmanus 12:23 PM 05/26/23 documented in this [facility]01-31-2024 Instructions* Patient Instructions* Krystin Delarosa MA - 05/26/2023 10:00 AM EST --Please call office with any questions or concerns! [phone] --request copy of CT report from [facility] (Feb 2023) --Schedule radiology test (HIDA scan and 4 hour gastric emptying study) for further evaluation of the symptoms. --Please see handout provided regarding additional recommendations for the symptoms including when to seek emergency care or further treatment. --Follow-up with PCP, and in GI clinic in about 6 weeks following the above evaluation and recommendations. Call office once radiology tests have been scheduled to scheduled GI follow up for 6 weeks * Attachments The following attachments cannot be sent through Care Everywhere. * Irritable Bowel Syndrome (Salvadorean) * Nausea and Vomiting, Adult (Salvadorean) * Severe Abdominal Pain (Salvadorean) * Gastroparesis (Delayed Gastric Emptying) (Salvadorean) documented in this encounterSSouthern Ohio Medical [id number] Telephone encounter Note* Telephone Encounter - Krystin Delarosa MA - 04/22/2023 12:35 PM EST Noted. Thank you [facility] [id number] Miscellaneous Notes* Telephone Encounter - Krystin Delarosa MA - 04/22/2023 12:35 PM EST Noted. Thank you * Telephone Encounter - Kenya Sales - 04/22/2023 12:12 PM EST New Pt referral received from Patient's PCP for - Unspecified abdominal pain. Pt requested message be sent to provider re previous testing. Pt states Medical records from [facility] from 09/22/22 [facility] Pt states 02/2023 seen at [facility] for CT with contrast. States results showed non specificed fluid filled small bowels loops - mildly dilated bowel loop inupper left abdomen. No evidence of obstruction. Mild Sigmoid diverticulosis without evidence of acute diverticulitis. Pt states she will have [facility] records faxed or sent through her [facility] prior to her 05/26 PSYCHIATRIC SOCIAL WORKER SUPERVISOR appt. Thank you! documented in this encounterSSouthern Ohio Medical [id number] Telephone encounter Note* Telephone Encounter - Kenya Sales - 04/22/2023 12:12 PM EST New Pt referral received from Patient's PCP for - Unspecified abdominal pain. Pt requested message be sent to provider re previous testing. Pt states Medical records from [facility] from 09/22/22 colonoscopy / EGD can be seen in her [facility] chart. Pt states 02/2023 seen at [facility] for CT with contrast. States results showed non specificed fluid filled small bowels loops - mildly dilated bowel loop inupper left abdomen. No evidence of obstruction. Mild Sigmoid diverticulosis without evidence of acute diverticulitis. Pt states she will have [facility] records faxed or sent through her [facility] prior to her 05/26 PSYCHIATRIC SOCIAL WORKER SUPERVISOR appt. Thank you! [facility] [id number] Telephone encounter Note* Telephone Encounter - Jeanine Ring RN - 03/13/2023 11:41 AM EST S: Patient is calling the [facility] with a medication problem. B: Medication: Effexor XR 37.5 mg capsule extended release 24 hour), 1 capsule with food once a day, orally A: Patient was seen yesterday for chronic IBS and decision was made to trial Effexor. She has checked with the pharmacy and the script is not there. R: Pharmacy and allergies verified in the chart. Avoids NSAID's and ASA due to bleeding disorder. Reviewed eCW note from yesterday and it was ordered but it appears to not have transmitted to pharmacy. Called [facility] to verify and script not received, phones were down yesterday for a few minutes. Called Dr. Garcia directly, advised of situation, and he authorized the above script being called to pharmacy, 30 day supply, no refills. Script called to pharmacist, spoke to Mayra. Patient then notified. TE entered in eCW. Reason for Disposition [1] Prescription not at pharmacy AND [2] was prescribed by PCP recently (Exception: triager has access to EMR and prescription is recorded there. Go to Home Care and confirm for pharmacy.) Protocols used: Medication Question [id number] [facility] [id number] Miscellaneous Notes* Telephone Encounter - Jeanine Ring RN - 03/13/2023 11:41 AM EST S: Patient is calling the [facility] with a medication problem. B: Medication: Effexor XR 37.5 mg capsule extended release 24 hour), 1 capsule with food once a day, orally A: Patient was seen yesterday for chronic IBS and decision was made to trial Effexor. She has checked with the pharmacy and the script is not there. R: Pharmacy and allergies verified in the chart. Avoids NSAID's and ASA due to bleeding disorder. Reviewed eCW note from yesterday and it was ordered but it appears to not have transmitted to pharmacy. Called [facility] to verify and script not received, phones were down yesterday for a few minutes. Called Dr. Garcia directly, advised of situation, and he authorized the above script being called to pharmacy, 30 day supply, no refills. Script called to pharmacist, spoke to Mayra. Patient then notified. TE entered in eCW. Reason for Disposition [1] Prescription not at pharmacy AND [2] was prescribed by PCP recently (Exception: triager has access to EMR and prescription is recorded there. Go to Home Care and confirm for pharmacy.) Protocols used: Medication Question [id number] documented in this [facility]10-21-2023 Telephone encounter Note* Telephone Encounter - Alyssa Covington RN - 02/13/2023 11:50 AM EDT S: Patient spoke with [facility] nurse regarding covid positive B: Onset of symptoms/concern 02/11/2023 A: Patient tested positive today for covid. Patient has headaches, sinus pain, scratchy throat, muscle aches, chills, fatigue, no sense of smell or taste. Patient denies cough. Patient's symptoms are worse today. Patient denies sob, no wheezing. Patient had the covid vaccines. Patient denies high risk diseases, except obesity. No . Patient states other family members had covid this past week, both received paxlovid as they were former smokers. Patient is requesting to have the paxlovid. Patient has Von Willebrand disease. R: Per [facility] directives, patient was scheduled for a [facility] visit at 10:50 am with PCP on 02/15/2023.Patient instructed to call back with new or worsening symptoms. Best callback # for patient is . Reason for Disposition [1] COVID-19 diagnosed by positive lab test (e.g., PCR, rapid self-test kit) AND [2] mild symptoms (e.g., cough, fever, others) AND [3] no complications or SOB Protocols used: Coronavirus (COVID-19) Diagnosed or [id number] [employer] Plan [id number] Miscellaneous Notes* Telephone Encounter - Alyssa Covington RN - 02/13/2023 11:50 AM EDT S: Patient spoke with [facility] nurse regarding covid positive B: Onset of symptoms/concern 02/11/2023 A: Patient tested positive today for covid. Patient has headaches, sinus pain, scratchy throat, muscle aches, chills, fatigue, no sense of smell or taste. Patient denies cough. Patient's symptoms are worse today. Patient denies sob, no wheezing. Patient had the covid vaccines. Patient denies high risk diseases, except obesity. No . Patient states other family members had covid this past week, both received paxlovid as they were former smokers. Patient is requesting to have the paxlovid. Patient has Von Willebrand disease. R: Per [facility] directives, patient was scheduled for a [facility] visit at 10:50 am with PCP on 02/15/2023.Patient instructed to call back with new or worsening symptoms. Best callback # for patient is . Reason for Disposition [1] COVID-19 diagnosed by positive lab test (e.g., PCR, rapid self-test kit) AND [2] mild symptoms (e.g., cough, fever, others) AND [3] no complications or SOB Protocols used: Coronavirus (COVID-19) Diagnosed or [id number] documented in this [facility]10-18-2023 Miscellaneous Notes* Telephone Encounter - Johanna Tolbert - 02/10/2023 3:52 PM EDT Called [facility] [phone] with no answer. Office closed. Left message with request for procedure plan to assist with bleeding risks. documented in this encounterDiley [facility] Center10-[facility]-2023 Telephone encounter Note * Telephone Encounter - Morenita Loyd LPN - 01/25/2023 2:42 PM EDT Shirley from [facility] called looking for last Pap. She will have her sign ALANA and fax itto us. Advised of no records of pap [facility] [id number] Miscellaneous Notes* Telephone Encounter - Morenita Loyd LPN - 01/25/2023 2:42 PM EDT Shirley from [facility] called looking for last Pap. She will have her sign ALANA and fax itto us. Advised of no records of pap documented in this [facility]05-31-2023 History of Present illness Narrative* Bakari Silva MD - 09/23/2022 2:04 PM EDT Name: Jerrica Suggs Date of : 1995 PCP: Nunu Cortez MD Referring Provider: Danyell Elizabeth PA-C Date of Service: 09/23/2022 Diagnosis: Von Willebrand disease type I, diagnosed at age 17 at [facility], when prolonged PTTwas noted in preparation for tonsillectomy. In 02/2012, patient was characterized as a DDAVP responder. Jerrica's son has also been diagnosed with von Willebrand disease. Her mother has not presented fortesting but is suspected to also have the disease. - In 2012, for tonsillectomy, patient recalls having been prescribed Humate-P and Amicar. - In 2016, for her son's delivery, patient recalls having used Humate before and after delivery, and Stimate as well. Jerrica declines nasal DDAVP for her procedures in 2022 due to concern for adverse effects. - On 09/22/22, Jerrica received IV DDAVP 20 mcg prior to EGD and colonoscopy, and IV tranexamic [id number] mg prior to discharge. She was provided with a prescription for tranexamic acid 1300 mg PO every 8 hours (due to unavailability of aminocaproic acid 5000 mg PO q6h) for a 7-day course, which shecan discontinue in a few days if no persistent bleeding. She was given a second dose of IV DDAVP 20mcg on day 2 of the procedure. History of Present Illness: Jerrica Suggs is a 27 year old woman with von Willebrand disease type I, previously followed byDr. Martinez, who is seen in the infusion center today to while receiving day 2 of IV DDAVP. Jerrica reports increase in menstrual bleeding this past month, and increase in rectal bleeding that startedafter she got home from the colonoscopy yesterday; however the rectal bleeding appears partly controlled on PO tranexamic acid. PAST MEDICAL HISTORY Diagnosis Date Encounter for preoperative assessment 09/04/2022 H/O removal of cyst from back of head Ureteral reflux with re-implantation at 9 months Vesico-ureteral reflux Von Willebrand disease Type I diagnosed at age 17. PAST SURGICAL HISTORY Procedure Laterality Date COLONOSCOPY 09/22/2022 EGD W/O BRSH SPEC VARICIES INJ 09/22/2022 OTHER ureteral-reimplantation TONSILLECTOMY HX TOOTH EXTRACTION Current Outpatient Medications Medication Sig Dispense Refill aminocaproic acid (AMICAR) 250 mg/mL (25 %) solution Take 20 mL by mouth every 6 hours as needed (bleeding). 473 mL 1 omeprazole (PRILOSEC) 20 mg capsule Take 1 capsule by mouth once daily. 30 capsule 2 ondansetron orally disintegrating (ZOFRAN ODT) 8 mg disintegrating tablet Take 1 tablet by mouth every 8 hours as needed for nausea/vomiting. 60 tablet 1 tranexamic acid (LYSTEDA) 650 mg tablet Take 2 tablets by mouth every 8 hours for 3 days, THEN 2 tablets every 8 hours as needed (Visible GI bleeding) for up to 4 days. 13 tablet 0 acetaminophen (TYLENOL) 325 mg tablet Take by mouth as directed. aluminum chloride (DRYSOL) 20 % external solution hyoscyamine sublingual (LEVSIN/SL) 0.125 mg Dissolve 1 tablet under the tongue every 4 hours as needed. 60 tablet 2 promethazine (PHENERGAN) 12.5 mg tablet Take 1 tablet by mouth every 6 hours as needed. 60 tablet 1 dicyclomine (BENTYL) 20 mg tablet Take 1 tablet by mouth three times daily. 90 tablet 2 No current facility-administered medications for this visit. ALLERGIES Allergen Reactions Aluminum Aspirin Other: See Comments Ibuprofen Unknown, Other: See Comments Due to having a bleeding disorder Aspirin Other: See Comments Bleeding disorder Hydrocodone-Acetami* Unknown Nsaids (Non-Steroid* Other: See Comments Bleeding disorder FAMILY HISTORY Problem Relation Age of Onset other (MS) Mother other (Diverticulosis) Mother other (Other) Father Multiple Sclerosis Paternal Grandmother other (Limted information; brother; mother, grandmother don't want to be tested.) Other Social History Tobacco Use Smoking status: Former Smokeless tobacco: Never Vaping Use Vaping Use: Never used Substance Use Topics Alcohol use: No Drug use: No Review of Systems: With pertinent positives and/or negatives above. Laboratory Data: 08/28/22 Von Willebrand Panel: Ristocetin Co-Factor 72% Collagen Binding (CBA) 67% Factor VIII:C Assay 77% Von Willebrand Ag 79% RistoCetin/VWF Ratio 0.9 CBA/VWF Ratio 0.8 FVIII/VWF Ratio 1.0 Normal multimer intensity with normal distribution of multimer sizes. PT 10.7, PTT 36.1, fibrinogen 285 CBC Latest Ref Rng & Units 09/23/2022 WBC 3.70 - 11.00 k/uL 7.90 RBC 3.90 - 5.20 m/uL 4.95 HGB 11.7 - 14.7 g/dL - HEMOGLOBIN 11.5 - 15.5 g/dL 15.3 HEMATOCRIT 36.0 - 46.0 % 43.3 MCV 80.0 - 100.0 fL 87.5 MCH 26.0 - 34.0 pg 30.9 MCHC 30.5 - 36.0 g/dL 35.3 RDW 11.8 - 14.5 % - RDW-CV 11.5 - 15.0 % 11.7 PLATELETS 150 - 400 k/uL 228 MPV 9.0 - 12.7 fL 10.7 BASO% % 0.3 ABS NEUT (ANC) 1.45 - 7.50 k/uL 4.92 ABS LYMPH 1.00 - 4.00 k/uL 2.06 ABS MONO <0.87 k/uL 0.61 ABS EOSIN <0.46 k/uL 0.27 ABS BASO <0.11 k/uL <0.03 NRBC /100 WBC 0.0 CMP Latest Ref Rng & Units 09/23/2022 SODIUM 136 - 144 mmol/L 138 POTASSIUM 3.7 - 5.1 mmol/L 3.3(L) CHLORIDE 97 - 105 mmol/L 100 CO2 22 - 30 mmol/L 25 GLUCOSE 74 - 99 mg/dL 104(H) BUN 7 - 21 mg/dL 7 CREATININE 0.58 - 0.96 mg/dL 0.78 EGFR >=60 mL/min/1.73m 108 PROTEIN, TOTAL 6.3 - 8.0 g/dL 7.9 ALBUMIN 3.9 - 4.9 g/dL 4.8 CALCIUM, TOTAL 8.5 - 10.2 mg/dL 9.6 BILIRUBIN, TOTAL 0.2 - 1.3 mg/dL 0.7 AST 13 - 35 U/L 20 ALT 7 - 38 U/L 16 ALKALINE PHOSPHATASE 34 - 123 U/L 59 Assessment and Plan: Von Willebrand disease Type I - VWF panel with normal levels on 08/28/22 - Characterized as DDAVP responder in the past - s/p EGD and colonoscopy 09/22/22 with controlled, albeit persistent, rectal bleeding - Monitor for adverse effects including hyponatremia - Repeat VWF panel today, and follow up in 4 weeks Bakari Silva MD Hematology and Oncology [facility] documented in this encounterDiley [facility] Center05-31-2023 Instructions* Patient Instructions* Bakari Silva MD - 09/23/2022 11:49 AM EDT Please continue tranexamic acid, and call if you develop any additional issues with bleeding. Please return to see Dr. Silva (virtual/video) visit in 4 weeks at the [place] location. documented in this encounterDiley [facility] Medical Center05-30-2023 Miscellaneous Notes* Telephone Encounter - Migdalia Nugent MA - 09/22/2022 1:40 PM EDT Patient called office and wanted to speak to the activity manager. I got the call. Patient was VERY upset. She states what she and discussed on her virtual appointment did not happen. Patient states that they discussed patient having a dose of DDAVP the day before The day and the day after her EGD and Colonoscopy. Patient was also not happy that Amacar did not get called in until the day of her procedure and then she was unable to find medication so she had to be switched to another medication and play lithuanian rulet with her medications. Patient was upset with Hem/Onc, GI and hospital in general and voiced that she plans on making a complaint about all of the above. I did try and smooth things over for her including calling around to local pharmacies for her to try and find medication. I did schedule patient to come and see before her DDAVP as she wantedto have a private conversation with her. Migdalia Nugent MA documented in this encounterDiley [facility] Medical Center05-30-2023 Miscellaneous Notes* Discharge Instr - Nursing - Tacho Branham RN - 09/22/2022 10:57 AM EDT Follow up pathology Follow up with PSYCHIATRIC SOCIAL WORKER SUPERVISOR in GI clinic Amicar sent to [facility]- [address] [place] [address] -use if bleeding, up to 7 days documented in this encounterDiley Ridge Medical Center05-30-2023 Nurse Note* Lesley Dinero RN - 09/22/2022 10:30 AM EDT Patient has been very agitated. Complaining of high anxiety. Medicated with versed 2 mg at 9:01 and 9:40 with little to no relieve of anxiety. Dr. Mitchell aware. documented in this encounterDiley Ridge Medical Center05-30-2023 Surgical operation note* Operative Report - Lyubov Begum MD - 09/22/2022 10:22 AM EDT OPERATIVE/PROCEDURE REPORT LOG ID: [id number] Surgery/Procedure Date: Incision/Procedure Start Time: 10:32 AM Incision Close/Procedure End Time: 10:47 AM Surgeon(s)/Proceduralist(s) and Manager Etl(s): Lyubov Begum MD No Additional Staff Procedure(s): Esophagogastroduodenoscopy (EGD) with biopsy Colonoscopy Anesthesia: Monitored anesthesia Care (MAC) Brief History: 27/F with abdominal pain with vomiting for upper endoscopy. Also c/o- bleeding [place] for colonoscopy Procedure Details: The patient was placed in the left lateral decubitus position. A bite block was placed and medications administered as above. The Olympus gastroscope was used to intubate the oropharynx and esophagus with ease. Esophagus- No strictures; mucosa unremarkable; Diaphragmatic indentation at 35 cm, GE junction at 35 cm and Squamocolumnar junction at 35 cm from incisors. Stomach- Cardia- No masses Body- normal Antrum- normal; Fundus (during retroflexion)- normal Duodenum- Bulb- normal; Second part- normal; biopsy obtained The scope was then withdrawn and the patient tolerated the procedure well. The patient was placed in the left lateral decubitus position. A digital rectal exam was performed and this was normal. The Olympus colonoscope was introduced into the rectum and advanced to the cecum. The procedure was not technically difficult. The cecum was identified by the appendiceal orifice and the ileocecal valve. The bowel preparation was excellent and the total withdrawal time was 6 minutes. The scope was then slowly withdrawn and the mucosal folds examined in detail. Cecum- Prep- Polyps- none Terminal ileum- normal Ascending colon- Polyps- none; Hepatic flexure- Polyps- none; Transverse colon- Polyps- none; Splenic flexure- Polyps- none Descending colon- Polyps- none; Sigmoid colon- Polyps- none; Rectum- Polyps- none; Retroflexion- hemorrhoids small No diverticulosis Pre-Op/Pre-Procedure Diagnosis: 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 with vomiting Bleeding [place] Post-Op/Post-Procedure Diagnosis: Normal gastroscopy. Biopsies taken to rule out celiac disease. Colonoscopy- small internal hemorrhoids Specimens: See above EBL: None Complications: None Recommendations: Follow up pathology Follow up with PSYCHIATRIC SOCIAL WORKER SUPERVISOR in GI clinic I/primary surgeon/proceduralist performed the procedure with assistance. Lyubov Begum MD SIGNATURE: Lyubov Begum MD PATIENT NAME: Jerrica Suggs DATE: September 22, 2022 TIME: 10:50 AM PAGER/CONTACT #: [phone] documented in this encounterDiley Ridge Medical Center05-30-2023 History of Present illness Narrative* Cherry Barber APRN.TREV - 09/22/2022 8:30 AM EDT H&P completed by Bakari Silva MD at 09/22/2022 6:13 AM documented in this encounterDiley Ridge Medical Center05-12-2023 History of Present illness Narrative* Bakari Silva MD - 09/04/2022 11:49 AM EDT VIRTUAL VISIT PROGRESS NOTE This is a virtual visit using Youmiam video visit. It required patient-provider interaction for themedical decision making as documented below. I have communicated my name and active licensure. The patient's identity and physical location wereverified at the time of this visit. The patient has been informed of the risks and benefits of -- and alternatives to -- treatment through a remote evaluation and consents to proceed with the evaluation remotely. Name: Jerrica Suggs Date of : 1995 PCP: Nunu Cortez MD Referring Provider: Danyell Elizabeth PA-C Date of Service: September 04, 2022 Diagnosis: Von Willebrand disease type I, diagnosed at age 17 at [facility], when prolonged PTTwas noted in preparation for tonsillectomy. In 02/2012, patient was characterized as a DDAVP responder. Jerrica's son has also been diagnosed with von Willebrand disease. Her mother has not presented fortesting but is suspected to also have the disease. In 2012, for tonsillectomy, patient recalls having been prescribed Humate-P and Amicar. In 2016, for her son's delivery, patient recalls having used Humate before and after delivery, and Stimate as well. Jerrica declines nasal DDAVP for her procedures in 2022 due to concern for adverse effects. History of Present Illness: Jerrica Suggs is a 27 year old woman with von Willebrand disease type I, previously followed byDr. Martinez, who presents for a telemedicine (video visit) today to formalize a plan prior to her EGD and colonoscopy. These procedures are intended to determine the etiology of patient's daily abdominal pain, severe diarrhea, intermittent bloody stools, and unintentional weight loss. We reviewed today the normal results of Jerrica's von Willebrand panel, with VWF Ag level > 50% and normal factor III level. Jerrica reports no change in her gastrointestinal symptoms. She is scheduled for EGD and colonoscopy on 09/23/22 and will be holding her antidiarrheals for several days before. She remains reasonably concerned about her risks of bleeding surrounding her procedures. PAST MEDICAL HISTORY Diagnosis Date Encounter for preoperative assessment 09/04/2022 H/O removal of cyst from back of head Ureteral reflux with re-implantation at 9 months Vesico-ureteral reflux Von Willebrand disease Type I diagnosed at age 17. PAST SURGICAL HISTORY Procedure Laterality Date OTHER ureteral-reimplantation TONSILLECTOMY HX TOOTH EXTRACTION Current Outpatient Medications Medication Sig Dispense Refill aminocaproic acid (AMICAR) 250 mg/mL (25 %) solution Take 20 mL by mouth every 6 hours as needed for up to 7 days. 560 mL 0 acetaminophen (TYLENOL) 325 mg tablet Take by mouth as directed. aluminum chloride (DRYSOL) 20 % external solution hyoscyamine sublingual (LEVSIN/SL) 0.125 mg Dissolve 1 tablet under the tongue every 4 hours as needed. 60 tablet 2 promethazine (PHENERGAN) 12.5 mg tablet Take 1 tablet by mouth every 6 hours as needed. 60 tablet 1 ondansetron orally disintegrating (ZOFRAN ODT) 8 mg disintegrating tablet Take 1 tablet by mouth every 8 hours as needed for nausea/vomiting. 60 tablet 1 dicyclomine (BENTYL) 20 mg tablet Take 1 tablet by mouth three times daily. 90 tablet 2 No current facility-administered medications for this visit. ALLERGIES Allergen Reactions Aluminum Aspirin Other: See Comments Ibuprofen Unknown, Other: See Comments Due to having a bleeding disorder Aspirin Other: See Comments Bleeding disorder Hydrocodone-Acetami* Unknown Nsaids (Non-Steroid* Other: See Comments Bleeding disorder FAMILY HISTORY Problem Relation Age of Onset other (MS) Mother other (Diverticulosis) Mother other (Other) Father Multiple Sclerosis Paternal Grandmother other (Limted information; brother; mother, grandmother don't want to be tested.) Other Social History Tobacco Use Smoking status: Former Smokeless tobacco: Never Vaping Use Vaping Use: Never used Substance Use Topics Alcohol use: No Drug use: No Review of Systems: With pertinent positives and/or negatives above. Laboratory Data: 08/28/22 (resulted after clinic visit) Von Willebrand Panel: Ristocetin Co-Factor 72% Collagen Binding (CBA) 67% Factor VIII:C Assay 77% Von Willebrand Ag 79% RistoCetin/VWF Ratio 0.9 CBA/VWF Ratio 0.8 FVIII/VWF Ratio 1.0 Normal multimer intensity with normal distribution of multimer sizes. CBC Latest Ref Rng & Units 08/28/2022 WBC 3.70 - 11.00 k/uL 8.99 RBC 3.90 - 5.20 m/uL 5.02 HGB 11.7 - 14.7 g/dL - HEMOGLOBIN 11.5 - 15.5 g/dL 15.5 HEMATOCRIT 36.0 - 46.0 % 44.6 MCV 80.0 - 100.0 fL 88.8 MCH 26.0 - 34.0 pg 30.9 MCHC 30.5 - 36.0 g/dL 34.8 RDW 11.8 - 14.5 % - RDW-CV 11.5 - 15.0 % 11.8 PLATELETS 150 - 400 k/uL 233 MPV 9.0 - 12.7 fL 10.4 BASO% % 0.6 ABS NEUT (ANC) 1.45 - 7.50 k/uL 5.12 ABS LYMPH 1.00 - 4.00 k/uL 2.67 ABS MONO <0.87 k/uL 0.61 ABS EOSIN <0.46 k/uL 0.52(H) ABS BASO <0.11 k/uL 0.05 NRBC /100 WBC 0.0 CMP Latest Ref Rng & Units 08/28/2022 SODIUM 136 - 144 mmol/L 139 POTASSIUM 3.7 - 5.1 mmol/L 3.8 CHLORIDE 97 - 105 mmol/L 101 CO2 22 - 30 mmol/L 28 GLUCOSE 74 - 99 mg/dL 93 BUN 7 - 21 mg/dL 7 CREATININE 0.58 - 0.96 mg/dL 0.74 EGFR >=60 mL/min/1.73m 115 PROTEIN, TOTAL 6.3 - 8.0 g/dL 7.6 ALBUMIN 3.9 - 4.9 g/dL 4.7 CALCIUM, TOTAL 8.5 - 10.2 mg/dL 9.7 BILIRUBIN, TOTAL 0.2 - 1.3 mg/dL 0.5 AST 13 - 35 U/L 19 ALT 7 - 38 U/L 13 ALKALINE PHOSPHATASE 34 - 123 U/L 62 PT 10.7, PTT 36.1, fibrinogen 285 Assessment and Plan: Von Willebrand disease Type I - VWF panel with normal levels on 08/28/22. VWF Ag level is already > 50%. - Characterized as DDAVP responder in the past - Plan to administer IV DDAVP (as patient declines intranasal formulation) on the day of EGD and colonoscopy, prior to procedure at 20 mcg (0.3 mcg/kg), and to repeat the dose at 20 mcg on day 2 - Should patient develop intra-procedural bleeding, a 2nd dose on day 1 can be given at 8 to 12 hours from the first dose - Monitor for adverse effects including hyponatremia - Aminocaproic acid will also be prescribed prior to the procedure, with a dose of 5000 mg every 6 hours for up to 7 days total Above plan was discussed in detail with Jerrica. Bakari Silva MD Hematology and Oncology [facility] documented in this encounterDiley Ridge Medical Center05-01-2023 Miscellaneous Notes* Telephone Encounter - Johanna Uribe - 08/24/2022 6:54 PM EDT 11/22/2015 and notes scanned to chart. (Formerly Jerrica Hernandez). Scopes scheduled Wednesday09/22/2022. * Addendum Note - Danyell Elizabeth PA-C - 08/24/2022 1:20 PM EDTAddended by: DANYELL ELIZABETH on: 08/24/2022 01:20 PM Modules accepted: Orders, SmartSet * Telephone Encounter - Danyell Elizabeth PA-C - 08/24/2022 1:18 PM EDT Can we please get patient set up for her scopes at [facility]. New orders placed. * Telephone Encounter - Bakari Silva MD - 08/24/2022 1:08 PM EDT I see - would you please have the schedulers reach out to schedule her scopes and I will then schedule her treatment accordingly? * Telephone Encounter - Danyell Elizabeth PA-C - 08/24/2022 12:[address] Silva, I really appreciate you seeing Jerrica. I talked to my schedulers and we probably wouldn't be able to schedule her until September for her scopes. Danyell Elizabeth PA-C * Telephone Encounter - Bakari Silva MD - 08/24/2022 11:55 AM EDT Ms. Elizabeth, I met with Jerrica today and am comfortable writing for WF concentrates prior to her EGD and colonoscopy. Judging by our usual infusion schedules, we would be able to provide appointments within the next 2 to 3 weeks. How soon would Jerrica be able to have an EGD and colonoscopy locally, here in [place], as we would need to coordinate? Thank you. Dante and Hematology team at [facility]- please retrieve Dr. Wright' notes about this patient if at all possible, as patient was previously seeing Dr. Wright until the early . documented in this encounterDiley Ridge Medical Center05-01-2023 Instructions* Patient Instructions* Danyell Elizabeth PA-C - 08/24/2022 1:19 PM EDT Images from the original note were not included. Bowel Preparation Instructions for: Miralax-Gatorade Preparations IF YOU DO NOT FOLLOW THESE DIRECTIONS, YOUR COLONOSCOPY WILL BE CANCELLED. Chow Instructions: Your bowel must be empty so that your doctor can clearly view your colon. Follow all of the instructions in this handout EXACTLY as they are written. Do NOT eat any solid food the ENTIRE day before your colonoscopy. Buy your bowel preparation at least 5 days before your colonoscopy. Four (4) Dulcolax laxative tablets containing 5mg of bisacodyl each (NOT Dulcolax stool softener) One (1) 8.3oz. bottle Miralax (238 grams) or generic equivalent 2 x 32oz. Bottles of Gatorade (NOT RED) Diabetic Patients: Use G2 (Gatorade 2) TRANSPORTATION on the Day of Your Exam A responsible adult MUST be present with you at Check In prior to your colonoscopy and REMAIN in the endoscopy area until you are discharged. You are NOT ALLOWED to drive, take a taxi or bus, or leave the Endoscopy Center ALONE. If you do not have a responsible driver/sales workers (family member or friend) withyou to take you home, your exam cannot be done with sedation and will be cancelled. Please bring a list of all of your current medications, including any Oghe-dea-Ewqmslj medications with you. Medications If you take insulin, diabetic medications or blood thinners such as Coumadin (warfarin), Plavix (clopidogrel), Ticlid (ticlopidine hydrochloride), Agrylin (anagrelide), Xarelto (Rivaroxaban), Pradaxa(Dabigatran), Eliquis (Apixaban), and Effient (Prasugrel). You MUST call the doctors who orders those medicines for instructions on altering the dosage before your colonoscopy. All other medications should be taken the day of the exam with a sip of water including ASPIRIN. Five (5) Days Before Your Colonoscopy Do NOT take medicines that stop diarrhea - such as Imodium, Kaopectate, or Pepto Bismol. Do NOT take fiber supplements - such as Metamucil, Citrucel, or Perdiem. Do NOT take products that contain iron - such as multi-vitamins (the label lists what is in the products). Three (3) Days Before Your Colonoscopy Do NOT eat high-fiber foods - such as popcorn, beans, seeds (flax, sunflower, quinoa), multigrain bread, nuts, salad/vegetables, or fresh and dried fruit. 1 Bowel Preparation Instructions for: Miralax-Gatorade Preparations One (1) Day Before Your Colonoscopy Only drink clear liquids the ENTIRE DAY before your colonoscopy. Do NOT eat any solid foods. Drink at least 8 ounces of clear liquids every hour after waking up. The clear liquids you can drink include: Clear Liquid (NO RED LIQUIDS) DO NOT DRINK Gatorade, Pedialyte or Powerade Clear broth or bouillon Coffee or tea (no milk or non-dairy creamer) Carbonated and non-carbonated soft drinks Cruz-Aid or other fruit flavored drinks Strained fruit juices (no pulp) Jell-O, popsicles, hard candy Water Alcohol Milk or non-dairy creamers Noodles or vegetables in soup Juice with pulp Liquid you cannot see through Do not use tobacco/vaping products Mix 1/2 of Miralax bottle (119 grams) in each 32 ounces of Gatorade bottle until dissolved. Keep cool in the refrigerator. DO NOT ADD ICE. The bowel preparation solution will be consumed in two parts. Part 1 5:00 PM - Evening before your colonoscopy Take 4 Dulcolax tablets. 6 PM - Evening before your colonoscopy Drink 32 oz. of the mixed solution. Drink an 8 oz. glass of bowel preparation every 15 minutes for a total of 4 glasses. Fifteen (15) minutes later, drink an 8 oz. glass of of clear liquids every 15 minutes for a total of 2 glasses. You may continue to drink clear liquids till midnight. Part 2 On the day of your colonoscopy you may drink clear liquids up to (three) 3 hours prior to procedure. 4 1/2 hours before your colonoscopy Take another 32 oz. bottle of mixed solution. Drink an 8 oz. glass of bowel prep every 15 minutes for a total of 4 glasses. Fifteen (15) minutes later, drink an 8 oz. glass of clear liquids every 15 minutes for a total of 2glasses. You may continue to drink clear liquids up to (three) 3 hours before your exam. 2 03/2019 documented in this encounterDiley Ridge Medical Center05-01-2023 History of Present illness Narrative* Bakari Silva MD - 08/24/2022 11:04 AM EDT Name: Jerrica Suggs Date of : 1995 PCP: Nunu Cortez MD Referring Provider: Danyell Elizabeth PA-C Date of Service: August 24, 2022 Diagnosis/ Reason for Consultation: Von Willebrand disease type I, diagnosed at age 17 at [facility], when prolonged PTTwas noted in preparation for tonsillectomy. In 02/2012, patient was characterized as a DDAVP responder. History of Present Illness: Jerrica Suggs is a 27 year old woman with von Willebrand disease type I, previously followed byDr. Martinez, who presents in consultation to formalize a plan prior to her EGD and colonoscopy. These procedures are intended to determine the etiology of patient's daily abdominal pain, severe diarrhea, intermittent bloody stools, and unintentional weight loss. Jerrica's son has also been diagnosed with von Willebrand disease. Her mother has not presented fortesting but is suspected to also have the disease. In 2012, for tonsillectomy, patient recalls having been prescribed Humate-P and Amicar. In 2016, for her son's delivery, patient recalls having used Humate before and after delivery, and Stimate as well. Jerrica declines nasal DDAVP for her procedures in 2022 due to concern for adverse effects. PAST MEDICAL HISTORY Diagnosis Date Encounter for preoperative assessment 09/04/2022 H/O removal of cyst from back of head Ureteral reflux with re-implantation at 9 months Vesico-ureteral reflux Von Willebrand disease Type I diagnosed at age 17. PAST SURGICAL HISTORY Procedure Laterality Date OTHER ureteral-reimplantation TONSILLECTOMY HX TOOTH EXTRACTION Current Outpatient Medications Medication Sig Dispense Refill acetaminophen (TYLENOL) 325 mg tablet Take by mouth as directed. aluminum chloride (DRYSOL) 20 % external solution hyoscyamine sublingual (LEVSIN/SL) 0.125 mg Dissolve 1 tablet under the tongue every 4 hours as needed. 60 tablet 2 promethazine (PHENERGAN) 12.5 mg tablet Take 1 tablet by mouth every 6 hours as needed. 60 tablet 1 ondansetron orally disintegrating (ZOFRAN ODT) 8 mg disintegrating tablet Take 1 tablet by mouth every 8 hours as needed for nausea/vomiting. 60 tablet 1 dicyclomine (BENTYL) 20 mg tablet Take 1 tablet by mouth three times daily. 90 tablet 2 aminocaproic acid (AMICAR) 250 mg/mL (25 %) solution Take 20 mL by mouth every 6 hours as needed for up to 7 days. 560 mL 0 No current facility-administered medications for this visit. ALLERGIES Allergen Reactions Aluminum Aspirin Other: See Comments Ibuprofen Unknown, Other: See Comments Due to having a bleeding disorder Aspirin Other: See Comments Bleeding disorder Hydrocodone-Acetami* Unknown Nsaids (Non-Steroid* Other: See Comments Bleeding disorder FAMILY HISTORY Problem Relation Age of Onset other (MS) Mother other (Diverticulosis) Mother other (Other) Father Multiple Sclerosis Paternal Grandmother other (Limted information; brother; mother, grandmother don't want to be tested.) Other Social History Tobacco Use Smoking status: Former Smokeless tobacco: Never Vaping Use Vaping Use: Never used Substance Use Topics Alcohol use: No Drug use: No Review of Systems: With pertinent positives and/or negatives above. Physical Exam: BP 112/75[right arm[ Pulse 93 Temp (Src) 98.8 (Temporal) Ht 5' 2 (1.58m) Wt 169 lb (76.7kg) SpO2 99% LMP 04/05/2017 BMI 30.90 kg/(m^2). Physical Exam Constitutional: General: She is not in acute distress. HENT: Head: Normocephalic and atraumatic. Mouth/Throat: Pharynx: Oropharynx is clear. Eyes: General: No scleral icterus. Conjunctiva/sclera: Conjunctivae normal. Cardiovascular: Rate and Rhythm: Normal rate and regular rhythm. Pulmonary: Effort: No respiratory distress. Breath sounds: Normal breath sounds. Abdominal: General: There is no distension. Palpations: Abdomen is soft. Tenderness: There is no abdominal tenderness. Musculoskeletal: General: No swelling or tenderness. Cervical back: No rigidity or tenderness. Skin: General: Skin is warm and dry. Neurological: General: No focal deficit present. Mental Status: She is alert. Mental status is at baseline. Psychiatric: Mood and Affect: Mood normal. Thought Content: Thought content normal. Laboratory Data: 08/28/22 (resulted after clinic visit) Von Willebrand Panel: Ristocetin Co-Factor 72% Collagen Binding (CBA) 67% Factor VIII:C Assay 77% Von Willebrand Ag 79% RistoCetin/VWF Ratio 0.9 CBA/VWF Ratio 0.8 FVIII/VWF Ratio 1.0 Normal multimer intensity with normal distribution of multimer sizes. CBC Latest Ref Rng & Units 08/28/2022 WBC 3.70 - 11.00 k/uL 8.99 RBC 3.90 - 5.20 m/uL 5.02 HGB 11.7 - 14.7 g/dL - HEMOGLOBIN 11.5 - 15.5 g/dL 15.5 HEMATOCRIT 36.0 - 46.0 % 44.6 MCV 80.0 - 100.0 fL 88.8 MCH 26.0 - 34.0 pg 30.9 MCHC 30.5 - 36.0 g/dL 34.8 RDW 11.8 - 14.5 % - RDW-CV 11.5 - 15.0 % 11.8 PLATELETS 150 - 400 k/uL 233 MPV 9.0 - 12.7 fL 10.4 BASO% % 0.6 ABS NEUT (ANC) 1.45 - 7.50 k/uL 5.12 ABS LYMPH 1.00 - 4.00 k/uL 2.67 ABS MONO <0.87 k/uL 0.61 ABS EOSIN <0.46 k/uL 0.52(H) ABS BASO <0.11 k/uL 0.05 NRBC /100 WBC 0.0 CMP Latest Ref Rng & Units 08/28/2022 SODIUM 136 - 144 mmol/L 139 POTASSIUM 3.7 - 5.1 mmol/L 3.8 CHLORIDE 97 - 105 mmol/L 101 CO2 22 - 30 mmol/L 28 GLUCOSE 74 - 99 mg/dL 93 BUN 7 - 21 mg/dL 7 CREATININE 0.58 - 0.96 mg/dL 0.74 EGFR >=60 mL/min/1.73m 115 PROTEIN, TOTAL 6.3 - 8.0 g/dL 7.6 ALBUMIN 3.9 - 4.9 g/dL 4.7 CALCIUM, TOTAL 8.5 - 10.2 mg/dL 9.7 BILIRUBIN, TOTAL 0.2 - 1.3 mg/dL 0.5 AST 13 - 35 U/L 19 ALT 7 - 38 U/L 13 ALKALINE PHOSPHATASE 34 - 123 U/L 62 PT 10.7, PTT 36.1, fibrinogen 285 Assessment and Plan: Von Willebrand disease Type I - VWF panel with normal levels on 08/28/22. VWF Ag level is already > 50%. - Characterized as DDAVP responder in the past - Plan to administer IV DDAVP (as patient declines intranasal formulation) on the day of EGD and colonoscopy, prior to procedure at 20 mcg (0.3 mcg/kg), and to repeat the dose at 20 mcg on day 2 - Should patient develop intra-procedural bleeding, a 2nd dose on day 1 can be given at 8 to 12 hours from the first dose - Monitor for adverse effects including hyponatremia - Aminocaproic acid will also be prescribed prior to the procedure, with a dose of 5000 mg every 6 hours for up to 7 days total On the date of this encounter, I spent more than 60 minutes in reviewing pertinent data, examining patient, counseling regarding test results and treatment options, documenting and coordinating care. Bakari Silva MD Hematology and Oncology [facility] documented in this encounterDiley Ridge Medical Center04-12-2023 Miscellaneous Notes* Telephone Encounter - Milena Cottrell - 08/05/2022 2:32 PM EDT Patient called in upset her procedures have not been scheduled. Called [facility] and explained patient needing infusion prior to procedures. They needed ordered placed for the infusion. Patient did not see a [facility] [employer] so the order cannot be used. Called Dr. Moreira office and spoke with the nurses Amanda and Maddy. Asked if she would be able to have her infusion with them and then drive to a [facility] hospital to have the scopes after. Due to the timing constraints they stated she could not. They stated that Dr. Moreira had suggested her to see a specialist at [facility] regarding her [employer] and patient declined. After talking with Dr. Moreira office I called and found an appointment with [facility] Hematology on 08/20. I also called [facility] to see when there 1st available office appointment was (10/19). Called patient to give her the option to either establish with [facility] for Hematology or transfer care to [facility]. Patient was extremely upset that she doesn't understand why we can't take orders from another system. After explaining this to her she decided to take the appointment with Dr. Silva. We will then coordinate with Dr. Silva to get her scheduled for her colon and EGD at [facility] with Dr. Begum. Milena Cottrell * Telephone Encounter - Danyell Elizabeth PA-C - 08/05/2022 2:29 PM EDT New referral to Hematology with [facility] placed. documented in this encounterDiley Ridge Medical Center03-14-2023 History of Present illness Narrative* Jeff Purvis MD - 07/07/2022 10:15 AM EDT Patient ID: Jerrica Suggs is a 27 y.o. female. Referring Physician: No referring provider defined for this encounter. Primary Care Provider: Nunu Cortez MD Assessment and plan 27W with report of DDAVP responsive vw type 1 but modest decrease in vw labs as per 2012 values. Colonoscopy and upper endoscopy planned with possible biopsies. Counseled and discussed with the patient. I had discussed intra nasal DDAVP with the patient at length but she wishes to receive IV DDAVP. She had IV access issues in the ED yesterday, so we have ordered a PICC line for just prior to procedures. Our preliminary plan is to adminster IV DDAVP just before colonoscopy/upper endoscopy (20 mcg) We will continue IV DDAVP for two days, [id number], outpatient (two doses). We will also administer amicar - Amicar PO solution (25%) 15 mg q6h for one day before procedures and 6 days after. Review of notes we were able to obtain from 2017 imply amicar was helpful and didn't cause any excess gi tox as previously though. I also offered a referral to the patient to see an adult chrome polisher who specializes in bleeding disorders at [facility] or [facility]. Periprocedural Humate also an option and would be facilitate via picc line. All questions answered. FU 2-3 weeks, telemedicine ok. Have sent TE message to RN and pharm team in regards to above plan. I wore a face mask and goggle and gloves for the entire interview. Patient was seen today via Telehealth by agreement and consent in light of the current COVID-19 pandemic. I used the following Telehealth technology: Audio capability only. Total length of call 21 minutes. The patient was offered and advised video for a more comprehensive evaluation, but the patient declined or was unable to use video. Patient location: Home. This patient encounter is appropriateand reasonable under the circumstances given the patient's particular presentation at this time. The patient has been advised of the potential risks and limitations of this mode of treatment (including but not limited to the absence of in-person examination) and has agreed to be treated in a remote fashion in spite of them. Any and all of the patient's/patient's family's questions on this issue have been answered and I have made no promises or guarantees to the patient. The patient has also been advised to contact this office for worsening conditions or problems, and seek emergency medical katie atment and/or call 911 if the patient deems either necessary. The patient stated that they are currently in the state of [place]. If the patient is a minor, permission has been obtained by the parent orguardian for the patient to receive medical care at this visit. Subjective HPI Please note: some documentation pending. 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 She was characterized as a DDAVP responder; labs 2011 note this. However, she notes some hemorrhage issues after tonsillectomy in 2012 and a hospitalization; comment on GI side effects with amicar. She notes use of humate before and after c/s with son's delivery in [address]. [address] Darryn Wright at this time. Documentation not available on care everywhere. She has not had significant bleeding/bruising issues as of late. She is here now as the gi team in [place] is concern re: bx with planned egd and colonoscopy. Past medical and surgical history: Notes ureteral procedure as a child. Family and social history: Son with vw type 1. Review of Systems Constitutional: Negative. HENT: Negative. Eyes: Negative. Respiratory: Negative. Cardiovascular: Negative. Endocrine: Negative. Genitourinary: Negative. Neurological: Negative. Hematological: Negative. Objective BSA: There is no height or weight on file to calculate BSA. There were no vitals taken for this visit. Physical exam: telemedicine Performance Status: Asymptomatic Pain Scale: 0 Lab Results Component Value Date WBC 9.2 07/06/2022 HGB 15.3 07/06/2022 HCT 42.7 07/06/2022 PLT 248 07/06/2022 CREATININE 0.70 07/06/2022 AST 35 07/06/2022 Assessment/Plan Cancer Staging No matching staging information was found for the patient. There are no diagnoses linked to this encounter. [No matching plan found] documented in this [facility]03-13-2023 Emergency department Note* Renee Bearden RN - 07/06/2022 1:58 PM EDT Unable to establish IV access without success despite multiple attempts by multiple staff members. Physician aware and pt medicated per orders with IM medication. Pt is aware of plan of care with CT and agrees to additional attempts for IV insertion for fluids. Renee Bearden RN 07/06/22 1548 [id number] Emergency department Note* Renee Bearden RN - 07/06/2022 1:58 PM EDT Pt resting in cot with family at bedside. Warm blankets provided. Renee Bearden RN 07/06/22 1720 [facility] [id number] Emergency department Note* Jay Dave MD - 07/06/2022 1:58 PM EDT [facility] ED EMERGENCY DEPARTMENT ENCOUNTER Pt Name: Jerrica Suggs Birthdate 1995 Date of evaluation: 07/06/2022 Provider: Jay Dave MD CHIEF COMPLAINT Chief Complaint Patient presents with Abdominal Pain Diarrhea HISTORY OF PRESENT ILLNESS (Location/Symptom, Timing/Onset,Context/Setting, Quality, Duration, Modifying Factors, Severity) Note limiting factors. Jerrica Suggs is a 27 y.o. female who presents to the emergency department with nausea vomitingdiarrhea. She has had this off and on for over a year. She has a bleeding disorder for which she sees a chrome polisher in fact has appointment tomorrow. She is scheduled to see GI she has had ultrasound back in May that was negative looking at her gallbladder. She had persistent nausea vomiting and feels dehydrated worse over the weekend. Is been a longstanding problem. Zofran not helping. Sheis scheduled to have endoscopy and colonoscopy but they are trying to coordinate it with her bleeding disorder. HPI Historian is the patient Nurse's notes for past medical history, surgical history, social history were reviewed. Medicationsand allergies reviewed. 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 DICYCLOMINE (BENTYL) 20 MG TABLET HYOSCYAMINE (LEVSIN) 0.125 MG SL TABLET DISSOLVE 1 TABLET UNDER THE TONGUE EVERY 4 HOURS NEEDED. MUPIROCIN (BACTROBAN) 2 % OINTMENT every 12 hours. ONDANSETRON ODT (ZOFRAN-ODT) 8 MG DISINTEGRATING TABLET PROMETHAZINE (PHENERGAN) 12.5 MG TABLET Take 12.5 mg by mouth every 6 hours as needed. Aspirin, Ibuprofen, Nsaids, and Hydrocodone-acetaminophen FAMILY HISTORY Family History Problem Relation Name Age of Onset High Blood Pressure Mother Multiple sclerosis Mother Cancer Paternal Grandmother SOCIAL HISTORY Social History Socioeconomic History Marital status: Tobacco Use Smoking status: Former Packs/day: 0.50 Types: Cigarettes Quit date: 2018 Years since quittin.1 Smokeless tobacco: Never Vaping Use Vaping Use: Never used Substance and Sexual Activity Alcohol use: No Drug use: No SCREENINGS PHYSICAL EXAM (up to 7 for level 4, 8 or more for level 5) @EDTRIAGEVSS@ Appropriate PPE including n 95, gown, gloves, goggles where worn when appropriate with this patient. Physical Exam Vital signs reviewed general: Alert and oriented 3 head: Atraumatic eyes: Equal round reactive to light and accommodating, pupils are equal, round and reactive to light and accommodation oropharynx: Clear and well hydrated neck: Supple heart: Regular rate and rhythm, no murmurs lungs: Clear to auscultation bilaterally abdomen: Soft vague tenderness but no rebound or guarding. Positive bowel sounds, no peritoneal findings. Extremities: Moving all fours, no tenderness. Normal capillary refill. Skin: No rash or lesions -to the exposed skin neurologically: Alert and oriented 3, no focal deficit DIAGNOSTIC RESULTS RADIOLOGY: Interpretation per the Radiologist below, if availableat the time of this note: CT abdomen pelvis wo IV contrast Final Result 1. No acute intra-abdominal process. 2. Soft tissue stranding and some specks of gas noted in the right gluteal region. Clinical correlation for a history of injection is recommended. Report Dictated on Electronically Signed By: Mendez Mathis Electronically Signed Date/Time: 07/06/2022 4:38 PM EDT ED BEDSIDE ULTRASOUND: Performed by ED Physician - none LABS: Labs Reviewed COMPREHENSIVE METABOLIC PANEL - Abnormal Result Value SODIUM 139 POTASSIUM 3.4 (*) CHLORIDE 104 CARBON DIOXIDE 29 ANION GAP 5 UREA NITROGEN 11 CREATININE 0.70 GLUCOSE 80 CALCIUM 9.3 AST (SGOT) 35 ALT 30 ALKALINE PHOSPHATASE 64 ALBUMIN 4.6 BILIRUBIN, TOTAL 0.6 TOTAL PROTEIN 8.2 eGFR >90.0 CBC WITH AUTO DIFFERENTIAL - Abnormal Auto WBC 9.2 RBC 4.95 Hemoglobin 15.3 Hematocrit 42.7 MCV 86.3 MCH 30.9 MCHC 35.8 RDW 11.6 Platelets 248 MPV 10.4 Neutrophils Relative 62.1 Lymphocytes Relative 27.8 Monocytes Relative 6.8 Eosinophils Relative 2.6 Basophils Relative 0.4 Immature Grans % 0.3 (*) Neutrophils Absolute 5.7 Lymphocytes Absolute 2.6 Monocytes Absolute 0.6 Eosinophils Absolute 0.2 Basophils Absolute 0.0 Immature Grans Absolute 0.0 COMPLETE URINALYSIS - Abnormal Color, Urine Yellow Clarity, Urine Clear pH, Urine 6.0 Leukocytes, Urine Negative Nitrite, Urine Negative Protein, Urine 20 (*) Glucose, Urine Normal Bilirubin, Urine Negative Ketones, Urine >150 (*) Urobilinogen, Urine Normal Blood, Urine Negative Volume, Urine 12 mL RBC, Urine Negative WBC, Urine 0-2 Squamous Epithelial, Urine 0-2 Bacteria, Urine Negative SPECIFIC GRAVITY OF URINE (NUMERIC) 1.028 LIPASE - Normal LIPASE 38 COMPLETE URINALYSIS WITH REFLEX TO CULTURE Narrative: The following orders were created for panel order Urinalysis complete with reflex to Culture. Procedure Abnormality Status --------- ------ Complete Urinalysis[[id number]] Abnormal Final result Please view results for these tests on the individual orders. HCG QUALITATIVE URINE HCG,URINE QUAL Negative Narrative: is the most common reason for HCG in urine, although choriocarcinoma, hydatidiform mole, and certain nontrophoblastic malignancies also result in detectable urinary HCG levels. Sensitivity = 20mIU/mL. All other labs were within normal range or not returned as of thisdictation. EMERGENCYDEPARTMENT COURSE and DIFFERENTIAL DIAGNOSIS/MDM: Vitals: Vitals: 07/06/22 1418 BP: 117/77 Pulse: 108 Resp: 14 Temp: 37.2 C (99 F) TempSrc: Oral SpO2: 97% Medical Decision Making Amount and/or Complexity of Data Reviewed Labs: ordered. Radiology: ordered. Risk Prescription drug management. EMERGENCY DEPARTMENT COURSE and DIFFERENTIAL DIAGNOSIS/MDM: Vitals: Vitals: 07/06/22 1418 BP: 117/77 Pulse: 108 Resp: 14 Temp: 37.2 C (99 F) TempSrc: Oral SpO2: 97% The patient presented with a chief complaint of nausea vomiting diarrhea. The differential diagnosis associated with this patient's presentation includes bowel obstruction, pancreatitis, UTI, gastritis, dehydration, viral illness. Our workup consisted of ordering/reviewing labs and CT of abdomen pelvis. Labs reviewed. CT of the abdomen and pelvis negative. Ketones greater 150. hCG negative. Patient given 1 L of IV fluids. Patient given IM Phenergan as she has difficult venous access. She is also given IV Zofran. Phenergan 25 mg Zofran 4 mg. Repeat evaluation she feels better. She will be senthome with a short course of Phenergan suppository. Follow with her doctor. Return if any problems or concerns. Repeat examination abdomen soft no rebound or guarding. Diagnoses as of 07/06/22 1740 Generalized abdominal pain Nausea and vomiting, unspecified vomiting type Dehydration Diagnostics considered but not indicated based on history, physical, testing: Ultrasound however she had that done in May of 2022 External records reviewed: Outpatient notes outpatient records 06/10/2022 for ultrasound of the right upper quadrant which was negative. Radiologic diagnostics interpreted by in: film images such as CT, Ultrasound and MRI are read by the radiologist. Plain radiographic images are visualized and preliminarily interpreted by the emergency physician with the below findings: CT scan(s) CT no acute process. There is secondary air from injection in the right buttock. Discussions with other clinicians: none Chronic conditions impacting care: Bleeding disorder and chronic abdominal pain Social determinants of health affecting care: none Shared decision making: Patient agrees to treatment plan. ED Medications managed: Medications sodium chloride 0.9 % bolus 1,000 mL (0 mL IntraVENous Stopped 07/06/22 1655) ondansetron (Zofran) injection 4 mg (4 mg IntraVENous Given 07/06/22 1553) promethazine (Phenergan) injection 25 mg (25 mg IntraMUSCular Given 07/06/22 1533) Prescription drugs considered: Phenergan suppository 25 mg given 10 tablets PROCEDURES: Unless otherwise noted below, none Procedures IMPRESSION 1. Generalized abdominal pain 2. Nausea and vomiting, unspecified vomiting type 3. Dehydration DISPOSITION/PLAN DISPOSITION Discharge 07/06/2022 05:38:32 PM PATIENT REFERRED TO: No follow-up provider specified. DISCHARGE MEDICATIONS: New Prescriptions PROMETHAZINE (PHENERGAN) 25 MG SUPPOSITORY Insert 1 suppository (25 mg) into the rectum every 6 hours as needed for nausea or vomiting for up to 3 days. @[facility]([id number]:LAST:1)@ (Comment: Please notethis report has been produced using speech recognition software and may contain errors related to that system including errors in grammar, punctuation, and spelling, as well as words and phrases that may be inappropriate.If there is any questions or concerns please feel free tocontact the dictating provider for clarification). Jay Dave MD (electronically signed) Attending Emergency Physician Jay aDve MD 07/06/22 1450 * Renee Bearden RN - 07/06/2022 1:58 PM EDT Pt ambulatory to room 3 with c/o abdominal pain, nausea, vomiting and diarrhea. Pt reports that nikolas had symptoms intermittently for over a year with symptoms increasing in the last week and not improved with use of prescribed meds. Pt denies any blood noticed in stool/vomit. * Renee Bearden RN - 07/06/2022 1:58 PM EDT Unable to establish IV access without success despite multiple attempts by multiple staff members. Physician aware and pt medicated per orders with IM medication. Pt is aware of plan of care with CT and agrees to additional attempts for IV insertion for fluids. Renee Bearden RN 07/06/22 1545 * Renee Bearden RN - 07/06/2022 1:58 PM EDT Pt resting in cot with family at bedside. Warm blankets provided. Renee Bearden RN 07/06/22 1720 documented in this encounterSSouthern Ohio Medical [id number] Emergency department Triage note* Renee Bearden RN - 07/06/2022 1:58 PM EDT Pt ambulatory to room 3 with c/o abdominal pain, nausea, vomiting and diarrhea. Pt reports that nikolas had symptoms intermittently for over a year with symptoms increasing in the last week and not improved with use of prescribed meds. Pt denies any blood noticed in stool/vomit. [facility] [id number] Physician Emergency department Note* Jay Dave MD - 07/06/2022 1:58 PM EDT [facility] ED EMERGENCY DEPARTMENT ENCOUNTER Pt Name: Jerrica Suggs Birthdate 1995 Date of evaluation: 07/06/2022 Provider: Jay Dave MD CHIEF COMPLAINT Chief Complaint Patient presents with Abdominal Pain Diarrhea HISTORY OF PRESENT ILLNESS (Location/Symptom, Timing/Onset,Context/Setting, Quality, Duration, Modifying Factors, Severity) Note limiting factors. Jerrica Suggs is a 27 y.o. female who presents to the emergency department with nausea vomitingdiarrhea. She has had this off and on for over a year. She has a bleeding disorder for which she sees a chrome polisher in fact has appointment tomorrow. She is scheduled to see GI she has had ultrasound back in May that was negative looking at her gallbladder. She had persistent nausea vomiting and feels dehydrated worse over the weekend. Is been a longstanding problem. Zofran not helping. Sheis scheduled to have endoscopy and colonoscopy but they are trying to coordinate it with her bleeding disorder. HPI Historian is the patient Nurse's notes for past medical history, surgical history, social history were reviewed. Medicationsand allergies reviewed. 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 DICYCLOMINE (BENTYL) 20 MG TABLET HYOSCYAMINE (LEVSIN) 0.125 MG SL TABLET DISSOLVE 1 TABLET UNDER THE TONGUE EVERY 4 HOURS NEEDED. MUPIROCIN (BACTROBAN) 2 % OINTMENT every 12 hours. ONDANSETRON ODT (ZOFRAN-ODT) 8 MG DISINTEGRATING TABLET PROMETHAZINE (PHENERGAN) 12.5 MG TABLET Take 12.5 mg by mouth every 6 hours as needed. Aspirin, Ibuprofen, Nsaids, and Hydrocodone-acetaminophen FAMILY HISTORY Family History Problem Relation Name Age of Onset High Blood Pressure Mother Multiple sclerosis Mother Cancer Paternal Grandmother SOCIAL HISTORY Social History Socioeconomic History Marital status: Tobacco Use Smoking status: Former Packs/day: 0.50 Types: Cigarettes Quit date: 2018 Years since quittin.1 Smokeless tobacco: Never Vaping Use Vaping Use: Never used Substance and Sexual Activity Alcohol use: No Drug use: No SCREENINGS PHYSICAL EXAM (up to 7 for level 4, 8 or more for level 5) @EDTRIAGEVSS@ Appropriate PPE including n 95, gown, gloves, goggles where worn when appropriate with this patient. Physical Exam Vital signs reviewed general: Alert and oriented 3 head: Atraumatic eyes: Equal round reactive to light and accommodating, pupils are equal, round and reactive to light and accommodation oropharynx: Clear and well hydrated neck: Supple heart: Regular rate and rhythm, no murmurs lungs: Clear to auscultation bilaterally abdomen: Soft vague tenderness but no rebound or guarding. Positive bowel sounds, no peritoneal findings. Extremities: Moving all fours, no tenderness. Normal capillary refill. Skin: No rash or lesions -to the exposed skin neurologically: Alert and oriented 3, no focal deficit DIAGNOSTIC RESULTS RADIOLOGY: Interpretation per the Radiologist below, if availableat the time of this note: CT abdomen pelvis wo IV contrast Final Result 1. No acute intra-abdominal process. 2. Soft tissue stranding and some specks of gas noted in the right gluteal region. Clinical correlation for a history of injection is recommended. Report Dictated on Electronically Signed By: Mendez Mathis Electronically Signed Date/Time: 07/06/2022 4:38 PM EDT ED BEDSIDE ULTRASOUND: Performed by ED Physician - none LABS: Labs Reviewed COMPREHENSIVE METABOLIC PANEL - Abnormal Result Value SODIUM 139 POTASSIUM 3.4 (*) CHLORIDE 104 CARBON DIOXIDE 29 ANION GAP 5 UREA NITROGEN 11 CREATININE 0.70 GLUCOSE 80 CALCIUM 9.3 AST (SGOT) 35 ALT 30 ALKALINE PHOSPHATASE 64 ALBUMIN 4.6 BILIRUBIN, TOTAL 0.6 TOTAL PROTEIN 8.2 eGFR >90.0 CBC WITH AUTO DIFFERENTIAL - Abnormal Auto WBC 9.2 RBC 4.95 Hemoglobin 15.3 Hematocrit 42.7 MCV 86.3 MCH 30.9 MCHC 35.8 RDW 11.6 Platelets 248 MPV 10.4 Neutrophils Relative 62.1 Lymphocytes Relative 27.8 Monocytes Relative 6.8 Eosinophils Relative 2.6 Basophils Relative 0.4 Immature Grans % 0.3 (*) Neutrophils Absolute 5.7 Lymphocytes Absolute 2.6 Monocytes Absolute 0.6 Eosinophils Absolute 0.2 Basophils Absolute 0.0 Immature Grans Absolute 0.0 COMPLETE URINALYSIS - Abnormal Color, Urine Yellow Clarity, Urine Clear pH, Urine 6.0 Leukocytes, Urine Negative Nitrite, Urine Negative Protein, Urine 20 (*) Glucose, Urine Normal Bilirubin, Urine Negative Ketones, Urine >150 (*) Urobilinogen, Urine Normal Blood, Urine Negative Volume, Urine 12 mL RBC, Urine Negative WBC, Urine 0-2 Squamous Epithelial, Urine 0-2 Bacteria, Urine Negative SPECIFIC GRAVITY OF URINE (NUMERIC) 1.028 LIPASE - Normal LIPASE 38 COMPLETE URINALYSIS WITH REFLEX TO CULTURE Narrative: The following orders were created for panel order Urinalysis complete with reflex to Culture. Procedure Abnormality Status --------- ------ Complete Urinalysis[[id number]] Abnormal Final result Please view results for these tests on the individual orders. HCG QUALITATIVE URINE HCG,URINE QUAL Negative Narrative: is the most common reason for HCG in urine, although choriocarcinoma, hydatidiform mole, and certain nontrophoblastic malignancies also result in detectable urinary HCG levels. Sensitivity = 20mIU/mL. All other labs were within normal range or not returned as of thisdictation. EMERGENCYDEPARTMENT COURSE and DIFFERENTIAL DIAGNOSIS/MDM: Vitals: Vitals: 07/06/22 1418 BP: 117/77 Pulse: 108 Resp: 14 Temp: 37.2 C (99 F) TempSrc: Oral SpO2: 97% Medical Decision Making Amount and/or Complexity of Data Reviewed Labs: ordered. Radiology: ordered. Risk Prescription drug management. EMERGENCY DEPARTMENT COURSE and DIFFERENTIAL DIAGNOSIS/MDM: Vitals: Vitals: 07/06/22 1418 BP: 117/77 Pulse: 108 Resp: 14 Temp: 37.2 C (99 F) TempSrc: Oral SpO2: 97% The patient presented with a chief complaint of nausea vomiting diarrhea. The differential diagnosis associated with this patient's presentation includes bowel obstruction, pancreatitis, UTI, gastritis, dehydration, viral illness. Our workup consisted of ordering/reviewing labs and CT of abdomen pelvis. Labs reviewed. CT of the abdomen and pelvis negative. Ketones greater 150. hCG negative. Patient given 1 L of IV fluids. Patient given IM Phenergan as she has difficult venous access. She is also given IV Zofran. Phenergan 25 mg Zofran 4 mg. Repeat evaluation she feels better. She will be senthome with a short course of Phenergan suppository. Follow with her doctor. Return if any problems or concerns. Repeat examination abdomen soft no rebound or guarding. Diagnoses as of 07/06/22 1740 Generalized abdominal pain Nausea and vomiting, unspecified vomiting type Dehydration Diagnostics considered but not indicated based on history, physical, testing: Ultrasound however she had that done in May of 2022 External records reviewed: Outpatient notes outpatient records 06/10/2022 for ultrasound of the right upper quadrant which was negative. Radiologic diagnostics interpreted by in: film images such as CT, Ultrasound and MRI are read by the radiologist. Plain radiographic images are visualized and preliminarily interpreted by the emergency physician with the below findings: CT scan(s) CT no acute process. There is secondary air from injection in the right buttock. Discussions with other clinicians: none Chronic conditions impacting care: Bleeding disorder and chronic abdominal pain Social determinants of health affecting care: none Shared decision making: Patient agrees to treatment plan. ED Medications managed: Medications sodium chloride 0.9 % bolus 1,000 mL (0 mL IntraVENous Stopped 07/06/22 1655) ondansetron (Zofran) injection 4 mg (4 mg IntraVENous Given 3/13/23 1553) promethazine (Phenergan) injection 25 mg (25 mg IntraMUSCular Given 07/06/22 1533) Prescription drugs considered: Phenergan suppository 25 mg given 10 tablets PROCEDURES: Unless otherwise noted below, none Procedures IMPRESSION 1. Generalized abdominal pain 2. Nausea and vomiting, unspecified vomiting type 3. Dehydration DISPOSITION/PLAN DISPOSITION Discharge 07/06/2022 05:38:32 PM PATIENT REFERRED TO: No follow-up provider specified. DISCHARGE MEDICATIONS: New Prescriptions PROMETHAZINE (PHENERGAN) 25 MG SUPPOSITORY Insert 1 suppository (25 mg) into the rectum every 6 hours as needed for nausea or vomiting for up to 3 days. @[facility]([id number]:LAST:1)@ (Comment: Please notethis report has been produced using speech recognition software and may contain errors related to that system including errors in grammar, punctuation, and spelling, as well as words and phrases that may be inappropriate.If there is any questions or concerns please feel free tocontact the dictating provider for clarification). Jay Dave MD (electronically signed) Attending Emergency Physician Jay Dave MD 07/06/22 1060 [facility] [id number] Miscellaneous Notes* Telephone Encounter - Danyell Elizabeth PA-C - 07/06/2022 12:16 PM EDT Patient called stating that her symptoms are worsening. Does not need like the Levsin is helping and causing more side effects. Still having a lot of nausea, vomiting. Feeling like every thing is sitting in her stomach even in small amounts. Is losing some weight. Highly recommend completing stool testing as ordered. Having a hard time financially at this time. Due to patient not being able to keep fluids and meds down, I did recommend ER evaluation. She is going to think about it. Seeing Dr. Purvis tomorrow. [facility] Telephone encounter Note * Telephone Encounter - Izzy Guillermo - 06/30/2022 2:37 PM EST Received a call from Dante at [facility] endoscopy. She wanted to coordinate the infusions withthe endoscopy. [facility] [id number] Miscellaneous Notes* Telephone Encounter - Izzy Guillermo - 06/30/2022 2:37 PM EST Received a call from Dante at [facility] endoscopy. She wanted to coordinate the infusions withthe endoscopy. * Telephone Encounter - Maddy Calle RN - 06/29/2022 10:55 AM EST Pt has an appt on 07-07-22 to go over plan. * Telephone Encounter - Jeff Purvis MD - 06/29/2022 10:32 AM EST Was able to discuss with Javier Elizabeth of [facility] GI team. Prelim plan would be pre procedural DDAVP and then make sure patient has intranasal DDAVP for after. We may also go with just self administered ddavp; I will review [place] [facility] documentation. documented in this encounterSSouthern Ohio Medical [id number] Instructions* Patient Instructions* Danyell Elizabeth PA-C - 06/29/2022 2:47 PM EST Images from the original note were not included. Bowel Preparation Instructions for: Miralax-Gatorade Preparations IF YOU DO NOT FOLLOW THESE DIRECTIONS, YOUR COLONOSCOPY WILL BE CANCELLED. Chow Instructions: Your bowel must be empty so that your doctor can clearly view your colon. Follow all of the instructions in this handout EXACTLY as they are written. Do NOT eat any solid food the ENTIRE day before your colonoscopy. Buy your bowel preparation at least 5 days before your colonoscopy. Four (4) Dulcolax laxative tablets containing 5mg of bisacodyl each (NOT Dulcolax stool softener) One (1) 8.3oz. bottle Miralax (238 grams) or generic equivalent 2 x 32oz. Bottles of Gatorade (NOT RED) Diabetic Patients: Use G2 (Gatorade 2) TRANSPORTATION on the Day of Your Exam A responsible adult MUST be present with you at Check In prior to your colonoscopy and REMAIN in the endoscopy area until you are discharged. You are NOT ALLOWED to drive, take a taxi or bus, or leave the Endoscopy Center ALONE. If you do not have a responsible driver/sales workers (family member or friend) withyou to take you home, your exam cannot be done with sedation and will be cancelled. Please bring a list of all of your current medications, including any [id number] medications with you. Medications If you take insulin, diabetic medications or blood thinners such as Coumadin (warfarin), Plavix (clopidogrel), Ticlid (ticlopidine hydrochloride), Agrylin (anagrelide), Xarelto (Rivaroxaban), Pradaxa(Dabigatran), Eliquis (Apixaban), and Effient (Prasugrel). You MUST call the doctors who orders those medicines for instructions on altering the dosage before your colonoscopy. All other medications should be taken the day of the exam with a sip of water including ASPIRIN. Five (5) Days Before Your Colonoscopy Do NOT take medicines that stop diarrhea - such as Imodium, Kaopectate, or Pepto Bismol. Do NOT take fiber supplements - such as Metamucil, Citrucel, or Perdiem. Do NOT take products that contain iron - such as multi-vitamins (the label lists what is in the products). Three (3) Days Before Your Colonoscopy Do NOT eat high-fiber foods - such as popcorn, beans, seeds (flax, sunflower, quinoa), multigrain bread, nuts, salad/vegetables, or fresh and dried fruit. 1 Bowel Preparation Instructions for: Miralax-Gatorade Preparations One (1) Day Before Your Colonoscopy Only drink clear liquids the ENTIRE DAY before your colonoscopy. Do NOT eat any solid foods. Drink at least 8 ounces of clear liquids every hour after waking up. The clear liquids you can drink include: Clear Liquid (NO RED LIQUIDS) DO NOT DRINK Gatorade, Pedialyte or Powerade Clear broth or bouillon Coffee or tea (no milk or non-dairy creamer) Carbonated and non-carbonated soft drinks Cruz-Aid or other fruit flavored drinks Strained fruit juices (no pulp) Jell-O, popsicles, hard candy Water Alcohol Milk or non-dairy creamers Noodles or vegetables in soup Juice with pulp Liquid you cannot see through Do not use tobacco/vaping products Mix 1/2 of Miralax bottle (119 grams) in each 32 ounces of Gatorade bottle until dissolved. Keep cool in the refrigerator. DO NOT ADD ICE. The bowel preparation solution will be consumed in two parts. Part 1 5:00 PM - Evening before your colonoscopy Take 4 Dulcolax tablets. 6 PM - Evening before your colonoscopy Drink 32 oz. of the mixed solution. Drink an 8 oz. glass of bowel preparation every 15 minutes for a total of 4 glasses. Fifteen (15) minutes later, drink an 8 oz. glass of of clear liquids every 15 minutes for a total of 2 glasses. You may continue to drink clear liquids till midnight. Part 2 On the day of your colonoscopy you may drink clear liquids up to (three) 3 hours prior to procedure. 4 1/2 hours before your colonoscopy Take another 32 oz. bottle of mixed solution. Drink an 8 oz. glass of bowel prep every 15 minutes for a total of 4 glasses. Fifteen (15) minutes later, drink an 8 oz. glass of clear liquids every 15 minutes for a total of 2glasses. You may continue to drink clear liquids up to (three) 3 hours before your exam. 2 03/2019 [facility] Miscellaneous Notes* Telephone Encounter - Danyell Elizabeth PA-C - 06/29/2022 2:46 PM EST Received call from Dr. Purvis, [facility]. Clearing patient for EGD/colonoscopy but requestingIV DDAVP prior to procedures. Orders updated. Please let patient know, will need to be done at [facility] Main. documented in this encounterD[facility]03-[facility]23 Telephone encounter Note * Telephone Encounter - Maddy Calle RN - 06/29/2022 10:55 AM EST Pt has an appt on 07-07-22 to go over plan. [id number] Telephone encounter Note* Telephone Encounter - Jeff Purvis MD - 06/29/2022 10:32 AM EST Was able to discuss with Javier Elizabeth of [facility] GI team. Prelim plan would be pre procedural DDAVP and then make sure patient has intranasal DDAVP for after. We may also go with just self administered ddavp; I will review [facility] documentation. [employer] Work Phone: [phone] History of Present illness Narrative* Jeff Purvis MD - 06/23/2022 11:00 AM EST Patient ID: Jerrica Suggs is a 27 y.o. female. Referring Physician: No referring provider defined for this encounter. 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 However, she notes complications with tonsillectomy in 2012 and relatively straightforward c/s delivery in 2017. I will review this documentation. My inclination is to repeat plan of 2017. After this clinical encounter, I called [facility] at [phone] to discuss with Danyell Elizabeth. Left vm with LAWRENCE cisneros phone # FU 2 weeks, I will FU the above documentation. I wore a face mask and goggle and gloves for the entire interview. 62 minutes reviewing previous notes, test results and face to face with the patient discussing the diagnosis and importance of compliance with the treatment plan as well as documenting on the day of the visit. Subjective HPI Please note: some documentation pending. 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 She was characterized as a DDAVP responder; labs 2011 note this. However, she notes some hemorrhage issues after tonsillectomy in 2012 and a hospitalization; comment on GI side effects with amicar. She notes use of humate before and after c/s with son's delivery in [address]. Saw [address] Darryn Wright at this time. Documentation not available on care everywhere. She has not had significant bleeding/bruising issues as of late. She is here now as the gi team in [place] is concern re: bx with planned egd and colonoscopy. Past medical and surgical history: Notes ureteral procedure as a child. Family and social history: Son with vw type 1. Review of Systems Constitutional: Negative. HENT: Negative. Eyes: Negative. Respiratory: Negative. Cardiovascular: Negative. Endocrine: Negative. Genitourinary: Negative. Neurological: Negative. Hematological: Negative. Objective BSA: There is no height or weight on file to calculate BSA. There were no vitals taken for this visit. Physical Exam Constitutional: Appearance: Normal appearance. HENT: Head: Normocephalic and atraumatic. Nose: Nose normal. Mouth/Throat: Pharynx: Oropharynx is clear. Eyes: Extraocular Movements: Extraocular movements intact. Pupils: Pupils are equal, round, and reactive to light. Cardiovascular: Rate and Rhythm: Normal rate. Pulses: Normal pulses. Heart sounds: Normal heart sounds. Pulmonary: Effort: Pulmonary effort is normal. Abdominal: General: Abdomen is flat. Palpations: Abdomen is soft. Musculoskeletal: General: Normal range of motion. Cervical back: Normal range of motion. Skin: General: Skin is warm and dry. Neurological: General: No focal deficit present. Mental Status: She is alert. Performance Status: Asymptomatic Pain Scale: 0 No results found for: WBC, ADJUSTEDWBC, HGB, HCT, PLT, LDH, CREATININE, AST, CA125, CEA, AFPTM, CA199, HCGTM Assessment/Plan Cancer Staging No matching staging information was found for the patient. There are no diagnoses linked to this encounter. [No matching plan found] documented in this [facility]02-15-2023 History of Present illness Narrative* Jerrica Scott RDMS - 06/10/2022 10:45 AM EST Radiology Service Progress Note PATIENT NAME: Jerrica Suggs DATE OF SERVICE: June 10, 2022 TIME: 11:03 AM PATIENT IDENTITY VERIFICATION COMPLETED USING TWO (2) IDENTIFIERS: Name and Date of confirmedby patient verbally. FALL SCREENING: Has the patient had 2 falls in the last year or 1 fall with injury or currently using an Ambulatory Assistive Device (Walker, Cane, Wheelchair, Crutches, etc.)? No PATIENT GENDER DATA: Female. status: : No status: NO. PATIENT RELEVANT IMPLANT DATA REVIEWED: Not Applicable RADIOLOGY DEPARTMENT: Ultrasound PERIPHERAL IV DATA: Not applicable SIGNED BY: Jerrica Scott RDMS [facility] June 10, 2022 11:03 AM documented in this encounterDiley [facility]02-14-2023 Miscellaneous Notes* Addendum Note - Danyell Elizabeth PA-C - 06/09/2022 9:29 AM ESTAddended by: DANYELL ELIZBAETH on: 06/09/2022 09:29 AM Modules accepted: Orders * Telephone Encounter - Danyell Elizabeth PA-C - 06/09/2022 9:28 AM EST Phenergan 12.5 mg PRN q6H sent to pharmacy. Okay to alternate with Zofran. * Addendum Note - Danyell Elizabeth PA-C - 06/09/2022 9:22 AM ESTAddended by: DANYELL ELIZABETH on: 06/09/2022 09:22 AM Modules accepted: Orders * Telephone Encounter - Danyell Elizabeth PA-C - 06/09/2022 9:21 AM EST Stool testing ordered. * Telephone Encounter - Danyell Elizabeth PA-C - 06/09/2022 8:19 AM EST Will send Levsin to pharmacy. documented in this encounterD[facility]02-07-2023 Instructions* Patient Instructions* Danyell Elizabeth PA-C - 06/02/2022 11:23 AM EST Images from the original note were not included. Bowel Preparation Instructions for: Miralax-Gatorade Preparations IF YOU DO NOT FOLLOW THESE DIRECTIONS, YOUR COLONOSCOPY WILL BE CANCELLED. Chow Instructions: Your bowel must be empty so that your doctor can clearly view your colon. Follow all of the instructions in this handout EXACTLY as they are written. Do NOT eat any solid food the ENTIRE day before your colonoscopy. Buy your bowel preparation at least 5 days before your colonoscopy. Four (4) Dulcolax laxative tablets containing 5mg of bisacodyl each (NOT Dulcolax stool softener) One (1) 8.3oz. bottle Miralax (238 grams) or generic equivalent 2 x 32oz. Bottles of Gatorade (NOT RED) Diabetic Patients: Use G2 (Gatorade 2) TRANSPORTATION on the Day of Your Exam A responsible adult MUST be present with you at Check In prior to your colonoscopy and REMAIN in the endoscopy area until you are discharged. You are NOT ALLOWED to drive, take a taxi or bus, or leave the Endoscopy Center ALONE. If you do not have a responsible driver/sales workers (family member or friend) withyou to take you home, your exam cannot be done with sedation and will be cancelled. Please bring a list of all of your current medications, including any Dmur-lad-Jiozmhb medications with you. Medications If you take insulin, diabetic medications or blood thinners such as Coumadin (warfarin), Plavix (clopidogrel), Ticlid (ticlopidine hydrochloride), Agrylin (anagrelide), Xarelto (Rivaroxaban), Pradaxa(Dabigatran), Eliquis (Apixaban), and Effient (Prasugrel). You MUST call the doctors who orders those medicines for instructions on altering the dosage before your colonoscopy. All other medications should be taken the day of the exam with a sip of water including ASPIRIN. Five (5) Days Before Your Colonoscopy Do NOT take medicines that stop diarrhea - such as Imodium, Kaopectate, or Pepto Bismol. Do NOT take fiber supplements - such as Metamucil, Citrucel, or Perdiem. Do NOT take products that contain iron - such as multi-vitamins (the label lists what is in the products). Three (3) Days Before Your Colonoscopy Do NOT eat high-fiber foods - such as popcorn, beans, seeds (flax, sunflower, quinoa), multigrain bread, nuts, salad/vegetables, or fresh and dried fruit. 1 Bowel Preparation Instructions for: Miralax-Gatorade Preparations One (1) Day Before Your Colonoscopy Only drink clear liquids the ENTIRE DAY before your colonoscopy. Do NOT eat any solid foods. Drink at least 8 ounces of clear liquids every hour after waking up. The clear liquids you can drink include: Clear Liquid (NO RED LIQUIDS) DO NOT DRINK Gatorade, Pedialyte or Powerade Clear broth or bouillon Coffee or tea (no milk or non-dairy creamer) Carbonated and non-carbonated soft drinks Cruz-Aid or other fruit flavored drinks Strained fruit juices (no pulp) Jell-O, popsicles, hard candy Water Alcohol Milk or non-dairy creamers Noodles or vegetables in soup Juice with pulp Liquid you cannot see through Do not use tobacco/vaping products Mix 1/2 of Miralax bottle (119 grams) in each 32 ounces of Gatorade bottle until dissolved. Keep cool in the refrigerator. DO NOT ADD ICE. The bowel preparation solution will be consumed in two parts. Part 1 5:00 PM - Evening before your colonoscopy Take 4 Dulcolax tablets. 6 PM - Evening before your colonoscopy Drink 32 oz. of the mixed solution. Drink an 8 oz. glass of bowel preparation every 15 minutes for a total of 4 glasses. Fifteen (15) minutes later, drink an 8 oz. glass of of clear liquids every 15 minutes for a total of 2 glasses. You may continue to drink clear liquids till midnight. Part 2 On the day of your colonoscopy you may drink clear liquids up to (three) 3 hours prior to procedure. 4 1/2 hours before your colonoscopy Take another 32 oz. bottle of mixed solution. Drink an 8 oz. glass of bowel prep every 15 minutes for a total of 4 glasses. Fifteen (15) minutes later, drink an 8 oz. glass of clear liquids every 15 minutes for a total of 2glasses. You may continue to drink clear liquids up to (three) 3 hours before your exam. 2 03/2019 documented in this encounterD[facility]02-07-2023 History of Present illness Narrative* Danyell Elizabeth PA-C - 06/02/2022 11:04 AM EST CHIEF COMPLAINT: Patient presents with: Abdominal Pain: Everything she eats causes pain, diarrhea or vomiting. Has been talking to primary care about this possible crohns. This consult was requested by Self for an opinion regarding abdominal pain. My final recommendations will be communicated to the requesting health care provider by way of the shared medical record for internal providers or letter via the [employer] for external providers. HPI: Jerrica Suggs is a 27 year old female who presents for Abdominal Pain (Everything she eatscauses pain, diarrhea or vomiting. Has been talking to primary care about this possible crohns. ). PMHx of Von Willebrand disease Patient tells me that she has been dealing with significant abdominal pain and diarrhea with eatingfor the last year. Has been taking Bentyl 10 mg PRN which isn't help much. Going to the bathroom over 5x a day. Some form. Pain is not improved with a bowel movement. Does seen rectal bleeding with wiping a few times a month. Vomiting with the abdominal pain. Happening maybe once or twice a few times a week. Does vomit up bile. Heartburn has been significantly less for her. Lost a lot of weight since the summer time. Was 210 lb last year. Seeing Hematology on 06/23 for her Von Willebrand. Record Review: [facility] / Outside records reviewed. PAST MEDICAL HISTORY Diagnosis Date H/O removal of cyst from back of head Ureteral reflux with re-implantation at 9 months Vesico-ureteral reflux Von Willebrand disease Type I diagnosed at age 17. PAST SURGICAL HISTORY Procedure Laterality Date OTHER ureteral-reimplantation TONSILLECTOMY HX TOOTH EXTRACTION Allergies: ALLERGIES Allergen Reactions Aspirin Other: See Comments Bleeding disorder Hydrocodone-Acetami* Unknown Nsaids (Non-Steroid* Other: See Comments Bleeding disorder Medications: dicyclomine (BENTYL) 10 mg capsule ondansetron (ZOFRAN) 4 mg tablet aminocaproic acid (AMICAR) 250 mg/mL (25 %) solution Take 20 mL by mouth every hour for 8 doses. FAMILY HISTORY Problem Relation Age of Onset other (MS) Mother other (Diverticulosis) Mother other (Other) Father Multiple Sclerosis Paternal Grandmother other (Limted information; brother; mother, grandmother don't want to be tested.) Other Employer And Job Title: None on file Years Of Education Completed: Not specified Marital Status: Social History Tobacco Use Smoking status: Former Smokeless tobacco: Never Vaping Use Vaping Use: Never used Substance Use Topics Alcohol use: No Drug use: No Review of Systems: Review of Systems Constitutional: Positive for unexpected weight change. Gastrointestinal: Positive for abdominal distention, abdominal pain, constipation, diarrhea, nausea, rectal pain and vomiting. Heartburn All other systems reviewed and are negative. Are you taking any blood thinners? No Physical Examination: Pulse 104 Ht 5' 2 (1.58m) Wt 165 lb (74.8kg) LMP 04/05/2017 BMI 30.17 kg/(m^2). Physical Exam Constitutional: Appearance: Normal appearance. HENT: Head: Normocephalic and atraumatic. Eyes: General: No scleral icterus. Extraocular Movements: Extraocular movements intact. Conjunctiva/sclera: Conjunctivae normal. Pupils: Pupils are equal, round, and reactive to light. Cardiovascular: Rate and Rhythm: Normal rate and regular rhythm. Pulses: Normal pulses. Heart sounds: Normal heart sounds. Pulmonary: Effort: Pulmonary effort is normal. Breath sounds: Normal breath sounds. Abdominal: General: Abdomen is flat. Bowel sounds are normal. Palpations: Abdomen is soft. Tenderness: There is abdominal tenderness (epigastric pain on palpation). Musculoskeletal: General: Normal range of motion. Cervical back: Normal range of motion and neck supple. Skin: General: Skin is warm and dry. Coloration: Skin is not jaundiced. Neurological: General: No focal deficit present. Mental Status: She is alert and oriented to person, place, and time. Psychiatric: Mood and Affect: Mood normal. Behavior: Behavior normal. Thought Content: Thought content normal. Judgment: Judgment normal. Assessment/Plan (R11.14) Bilious vomiting with nausea (primary encounter diagnosis) (R10.84) Generalized abdominal pain (R19.7) Diarrhea, unspecified type (K62.5) Rectal bleeding 1. Bilious vomiting with nausea -- Patient with vomiting, abdominal pain, diarrhea for the last year. Gets so severe she misses work. -- Will give her Zofran -- Abd US r/o gallbladder pathology -- EGD for further evaluation - ondansetron orally disintegrating (ZOFRAN ODT) 8 mg disintegrating tablet; Take 1 tablet by mouthevery 8 hours as needed for nausea/vomiting. Dispense: 60 tablet; Refill: 1 - US ABD RT UPPER QUADRANT; Future - EGD DIAGNOSTIC; Future 2. Generalized abdominal pain -- Patient with vomiting, abdominal pain, diarrhea for the last year. Gets so severe she misses work. -- Will give her Zofran. Increase her Bentyl 20 mg PRN TID -- Abd US r/o gallbladder pathology -- EGD for further evaluation - dicyclomine (BENTYL) 20 mg tablet; Take 1 tablet by mouth three times daily. Dispense: 90 tablet;Refill: 2 - US ABD RT UPPER QUADRANT; Future - EGD DIAGNOSTIC; Future - COLONOSCOPY DIAGNOSTIC; Future 3. Diarrhea, unspecified type -- Patient with vomiting, abdominal pain, diarrhea for the last year. Gets so severe she misses work. -- Will give her Zofran. Increase her Bentyl 20 mg PRN TID -- Abd US r/o gallbladder pathology -- EGD for further evaluation - dicyclomine (BENTYL) 20 mg tablet; Take 1 tablet by mouth three times daily. Dispense: 90 tablet;Refill: 2 - US ABD RT UPPER QUADRANT; Future - COLONOSCOPY DIAGNOSTIC; Future 4. Rectal bleeding -- Patient with intermittent rectal bleeding with wiping. Does have Von Willebrand disease, seeing Hematology on 06/23 -- Plan for colonoscopy for further evaluation - COLONOSCOPY DIAGNOSTIC; Future Follow up in office PRN. Recommended to please call office/go to ER if fever, chills, chest pain, SOB, diarrhea, nausea, emesis, worsening abdominal pain, dehydration occurs I spent 20 minutes in the visit, with more than 50% of the total [id number]-[id number] time of the visit in counseling / coordination of care. I have confirmed and edited as necessary, the PFSH and ROS obtained by others. Danyell Elizabeth PA-C June 02, 2022 11:27 AM [facility] Diagnosis Bilious vomiting with nausea- Primary Generalized abdominal pain 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, generalized Diarrhea, unspecified type Rectal bleeding Hemorrhage of rectum and anus documented in this encounter [facility]* Diagnosis Generalized abdominal pain- Primary 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, generalized Diarrhea, unspecified type Bilious vomiting with nausea documented in this encounter [facility] note* Diagnosis Generalized abdominal pain 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, generalized Diarrhea, unspecified type documented in this encounter [facility] note* Diagnosis Generalized abdominal pain- Primary 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, generalized Diarrhea, unspecified type Rectal bleeding Hemorrhage of rectum and anus Bilious vomiting with nausea documented in this encounter [facility] note* Diagnosis Generalized abdominal pain- Primary 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, generalized Diarrhea, unspecified type Bilious vomiting with nausea documented in this encounter [facility] note* Diagnosis Von Willebrand disease- Primary Von Willebrand's disease documented in this encounter [facility] note* Diagnosis Von Willebrand disease Type I- Primary Von Willebrand's disease documented in this encounter [facility] note* Diagnosis Bilious vomiting without nausea- Primary Generalized abdominal pain 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, generalized Diarrhea, unspecified type Rectal bleeding Hemorrhage of rectum and anus documented in this encounter [facility] note* Diagnosis Encounter for preoperative assessment Von Willebrand disease Type I Von Willebrand's disease Bilious vomiting without nausea Generalized abdominal pain 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, generalized Diarrhea, unspecified type Rectal bleeding Hemorrhage of rectum and anus documented in this encounter [facility] note* Diagnosis Von Willebrand disease Type I Von Willebrand's disease Bilious vomiting without nausea Generalized abdominal pain 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, generalized Diarrhea, unspecified type Rectal bleeding Hemorrhage of rectum and anus documented in this encounter [facility] note* Diagnosis Bilious vomiting without nausea Generalized abdominal pain 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, generalized Diarrhea, unspecified type Rectal bleeding Hemorrhage of rectum and anus documented in this encounter [facility] note* Diagnosis Von Willebrand disease Type I- Primary Von Willebrand's disease Encounter for preoperative assessment documented in this encounter [facility] note* Diagnosis Anesthesia of skin Disturbance of skin sensation Paresthesia of skin documented in this encounter [facility] note* Diagnosis Von Willebrand disease Type I- Primary Von Willebrand's disease documented in this encounter [facility] note* Diagnosis Anesthesia of skin- Primary Disturbance of skin sensation Paresthesia of skin Anesthesia of skin Disturbance of skin sensation Paresthesia of skin documented in this encounter [facility] note* Diagnosis Bilious vomiting with nausea Generalized abdominal pain 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, generalized Diarrhea, unspecified type documented in this encounter [facility] note* Diagnosis Nausea and vomiting, unspecified vomiting type- Primary Postprandial RUQ pain Irritable bowel syndrome with both constipation and diarrhea Unintentional weight loss Loss of weight documented in this encounter [facility] note* Diagnosis Nausea and vomiting, unspecified vomiting type documented in this encounter [facility] noteNo assessment information availableWSt. Vincent Hospital Work Phone: [facility] [place] [facility]* Diagnosis Postprandial RUQ pain documented in this encounter [facility] note* Diagnosis 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, chronic, right upper quadrant- Primary Elevated lipase Nausea and vomiting, unspecified vomiting type documented in this encounter [facility] note* Diagnosis Postprandial epigastric pain- Primary Elevated lipase Pancreatic lesion Weight loss Loss of weight documented in this encounter [facility] note* Diagnosis Postprandial epigastric pain- Primary Elevated lipase Pancreatic lesion Weight loss Loss of weight documented in this encounter [facility] note* Diagnosis Postprandial epigastric pain Elevated lipase Pancreatic lesion documented in this encounter [facility] note* Diagnosis Postprandial epigastric pain documented in this encounter [facility] note* Diagnosis Postprandial epigastric pain Elevated lipase Pancreatic lesion documented in this encounter [facility] note* Diagnosis Von Willebrand disease (HCC)- Primary Von Willebrand's disease documented [facility]* Diagnosis Preop testing- Primary Unspecified pre-operative examination Epigastric pain 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, epigastric documented in this encounter [facility] note* Diagnosis Von Willebrand disease (HCC)- Primary Von Willebrand's disease Encounter for preoperative assessment documented in this encounter [facility] note* Diagnosis Von Willebrand disease Type I- Primary Von Willebrand's disease Encounter for preoperative assessment documented in this encounter [facility] note* Diagnosis Epigastric pain- Primary 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, epigastric Epigastric pain 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, epigastric Von Willebrand disease (HCC) Von Willebrand's disease documented in this encounter [facility] note* Diagnosis Encounter for postoperative care- Primary documented in this encounter [facility] note* Diagnosis Von Willebrand disease- Primary Von Willebrand's disease documented in this encounter [facility] note* Diagnosis Generalized abdominal pain- Primary 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, generalized Nausea and vomiting, unspecified vomiting type Dehydration documented in this encounter [facility] note* Diagnosis Von Willebrand disease Type I Von Willebrand's disease Encounter for preoperative assessment Von Willebrand disease Type I Von Willebrand's disease Acute cough documented in this encounter [facility] note* Diagnosis Von Willebrand disease Type I Von Willebrand's disease Encounter for preoperative assessment Von Willebrand disease Type I Von Willebrand's disease Von Willebrand disease (HCC)- Primary Von Willebrand's disease Rectal bleeding Hemorrhage of rectum and anus [facility] Additional Instructions Use your nausea medication at home as needed. Plenty of fluids and rest. Follow-up with your GI doctors at [facility] for further evaluation and your HIDA scan next week.[facility] Work Phone: Hospital Discharge instructions* Attachments The following attachments cannot be sent through Care Everywhere. * Dehydration Discharge Instructions, Adult (Salvadorean) * Nausea and Vomiting, Adult ED ([place]ad[place]) * Abdominal Pain, Adult ED ([place]) [facility] Outpatient Procedure (Routine) - Pending Review Specialty Diagnoses / Procedures Referred By Contsu t Referred To Contact [facility] Diagnoses Generalized abdominal pain Diarrhea, unspecified type Rectal bleeding Procedures COLONOSCOPY DIAGNOSTIC COLONOSCOPY FLX DX W/COLLJ SPEC WHEN PFRMD Danyell Elizabeth PA-C [address] [facility] [place] [address] [facility] [address] [place] [address] Referral ID Status Reason Start Date Expiration Date Visits Requested Visits Authorized [id number] Pending Review Auto-Generat ed Referral 06/02/2022 06/02/2023 1 1 * Outpatient Procedure (Routine) - Pending Review Specialty Diagnoses / Procedures Referred By Contac t Referred To Contact [facility] Diagnoses Bilious vomiting with nausea Generalized abdominal pain Procedures EGD DIAGNOSTIC ESOPHAGOGASTRODUODENOS COPY TRANSORAL DIAGNOSTIC Danyell Elizabeth PA-C [address] [place] [address] [place] [address] Referral ID Status Reason Start Date Expiration Date Visits Requested Visits Authorized [id number] Pending Review Auto-Generat ed Referral 06/02/2022 06/02/2023 1 1 * Diagnostic Procedure Only (Routine) - Authorized Specialty Diagnoses / Procedures Referred By Contac t Referred To Contact [facility] Diagnoses Bilious vomiting with nausea Generalized abdominal pain Diarrhea, unspecified type Procedures US ABD RT UPPER QUADRANT US ABDOMINAL REAL TIME W/IMAGE LIMITED Danyell Elizabeth PA-C [address] [place] [address] [facility] Referral ID Status Reason Start Date Expiration Date Visits Requested Visits Authorized [id number] Authorized Auto-Generat ed Referral 06/02/2022 07/02/2023 1 1 [facility] for referral (narrative)* Outpatient Procedure (Routine) - Pending Review Specialty Diagnoses / Procedures Referred By Contac t Referred To Contact [facility] Diagnoses Generalized abdominal pain Diarrhea, unspecified type Rectal bleeding Procedures COLONOSCOPY DIAGNOSTIC COLONOSCOPY FLX DX W/COLLJ SPEC WHEN PFRMD Danyell Elizabeth PA-C [address] [place] [address] [address] Referral ID Status Reason Start Date Expiration Date Visits Requested Visits Authorized [id number] Pending Review Auto-Generat ed Referral 06/29/2022 06/30/2023 1 1 * Outpatient Procedure (Routine) - Pending Review Specialty Diagnoses / Procedures Referred By Contac t Referred To Contact [facility] Diagnoses Generalized abdominal pain Bilious vomiting with nausea Procedures EGD DIAGNOSTIC ESOPHAGOGASTRODUODENOS COPY TRANSORAL DIAGNOSTIC Danyell Elizabeth PA-C [address] [place] [address] [facility] [address] [place] [address] Referral ID Status Reason Start Date Expiration Date Visits Requested Visits Authorized [id number] Pending Review Auto-Generat ed Referral 06/29/2022 06/30/2023 1 1 [facility] for referral (narrative)* Outpatient Procedure (Routine) - Pending Review Specialty Diagnoses / Procedures Referred By Contac t Referred To Contact [facility] Diagnoses Generalized abdominal pain Diarrhea, unspecified type Rectal bleeding Procedures COLONOSCOPY DIAGNOSTIC COLONOSCOPY FLX DX W/COLLJ SPEC WHEN PFRMD Danyell Elizabeth PA-C [address] [place] [address] [facility] [address] [place] [address] Referral ID Status Reason Start Date Expiration Date Visits Requested Visits Authorized [id number] Pending Review Auto-Generat ed Referral 08/24/2022 08/25/2023 1 1 * Outpatient Procedure (Routine) - Pending Review Specialty Diagnoses / Procedures Referred By Contac t Referred To Contact [facility] Diagnoses Bilious vomiting without nausea Generalized abdominal pain Procedures EGD DIAGNOSTIC ESOPHAGOGASTRODUODENOS COPY TRANSORAL DIAGNOSTIC Danyell Elizabeth PA-C [address] [place] [address] [facility] [address] [place] [address] Referral ID Status Reason Start Date Expiration Date Visits Requested Visits Authorized [id number] Pending Review Auto-Generat ed Referral 08/24/2022 08/25/2023 1 1 [facility] for referral (narrative)* Outpatient Procedure (Routine) - Closed Specialty Diagnoses / Procedures Referred By Contac t Referred To Contact Diagnoses Generalized abdominal pain Diarrhea, unspecified type Rectal bleeding Bilious vomiting Procedures COLONOSCOPY DIAGNOSTIC COLONOSCOPY FLX DX W/COLLJ SPEC WHEN PFRMD Danyell Elizabeth PA-C [address] [place] [address] [address] [place] [address] Referral ID Status Reason Start Date Expiration Date V isits Requested Visits Authorized [id number] Closed Auto-Generate d Referral 09/22/2022 12/21/2022 1 1 * Outpatient Procedure (Routine) - Closed Specialty Diagnoses / Procedures Referred By Contac t Referred To Contact Diagnoses Bilious vomiting without nausea Generalized abdominal pain Procedures EGD DIAGNOSTIC ESOPHAGOGASTRODUODENOSCOPY TRANSORAL DIAGNOSTIC Danyell Elizabeth PA-C [address] [place] [address] [address] [place] [address] Referral ID Status Reason Start Date Expiration Date V isits Requested Visits Authorized [id number] Closed Auto-Generate d Referral 08/24/2022 08/25/2023 1 1 [facility] for referral (narrative)* Diagnostic Procedure Only (Routine) - Closed Specialty Diagnoses / Procedures Referred By Contac t Referred To Contact [facility] Diagnoses Bilious vomiting with nausea Generalized abdominal pain Diarrhea, unspecified type Procedures US ABD RT UPPER QUADRANT US ABDOMINAL REAL TIME W/IMAGE LIMITED Danyell Gann PA-C [address] [place] [address] [place] [id number] Referral ID Status Reason Start Date Expiration Date V isits Requested Visits Authorized [id number] Closed Auto-Generate d Referral 06/02/2022 07/02/2023 1 1 [facility] for referral (narrative)* Consultation (Routine) - Pending Review Specialty Diagnoses / Procedures Referred By Contac t Referred To Contact General Surgery Diagnoses Postprandial epigastric pain Elevated lipase Pancreatic lesion Procedures [place] OFFICE/OUTPATIENT NEW HIGH MDM 60 MINUTES Rebecca Lorenzo PA-C [address] [place] [address] Son Rosario MD [address] [place] [id number] Referral ID Status Reason Start Date Expiration Date Visits Requested Visits Authorized [id number] Pending Review Specialty Services Required 07/05/2023 07/04/2024 1 1 * Imaging (Routine) - Pending Review Specialty Diagnoses / Procedures Referred By Contac t Referred To Contact Cardiology Diagnoses Postprandial epigastric pain Procedures Vascular US mesenteric artery duplex complete Rebecca Lorenzo PA-C [address] [place] [address] Referral ID Status Reason Start Date Expiration Date V isits Requested Visits Authorized [id number] Pending Review 07/05/2023 07/04/2024 1 1 [facility] for referral (narrative)* Consultation (Routine) - Pending Review Specialty Diagnoses / Procedures Referred By Contac t Referred To Contact General Surgery Diagnoses Postprandial epigastric pain Elevated lipase Pancreatic lesion Procedures [place] OFFICE/OUTPATIENT NEW HIGH MDM 60 MINUTES Rebecca Lorenzo PA-C [address] [place] [address] Son Rosario MD [address] [facility] [address] [facility] [address] [place] [address] Referral ID Status Reason Start Date Expiration Date Visits Requested Visits Authorized [id number] Pending Review Specialty Services Required 07/05/2023 07/04/2024 1 1 * Imaging (Routine) - Authorized Specialty Diagnoses / Procedures Referred By Gino sharpe Referred To Contact Cardiology Diagnoses Postprandial epigastric pain Procedures Vascular US mesenteric artery duplex complete Rebecca Lorenzo PA-C [address] [facility] [address] [place] [address] Referral ID Status Reason Start Date Expiration Date V isits Requested Visits Authorized [id number] Authorized 07/05/2023 07/04/2024 1 1 [facility] for referral (narrative)No reason for referral information [facility]WSt. [facility] Work Phone: Rewwqj for visit Narrative* Outpatient Procedure (Routine) - Closed Specialty Diagnoses / Procedures Referred By Gino sharpe Referred To Contact Diagnoses Generalized abdominal pain Diarrhea, unspecified type Rectal bleeding Bilious vomiting Procedures COLONOSCOPY DIAGNOSTIC COLONOSCOPY FLX DX W/COLLJ SPEC WHEN PFRMD Danyell Elizabeth PA-C [address] [place] [address] [facility] [address] [facility] [place] [address] Referral ID Status Reason Start Date Expiration Date V isits Requested Visits Authorized [id number] Closed Auto-Generate d Referral 09/22/2022 12/21/2022 1 1 [facility] Summary Purpose Family History No Family History Records FoundNo Family History Records FoundNo Family History Records FoundNo Family History Records FoundNo Family History Records FoundNo Family History Records FoundNo Family History Records FoundNo Family History Records FoundNo Family History Records Found Advance Directives No Advanced Directives Records FoundDocuments on File Type Date 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 Advance Directive(s) 04/05/2017 5:53 PM Advance Directive Response Recorded Date/ Time Living Will No June 16, 11:38am Power of Adult Ministries Director No June 16, 2023 11:38am Latest Code Status on File Code Status Date Activated Date Inactivated Comments Full Code 09/03/2023 2:03 PM 09/04/2023 1:57 PM Code Status History Code Status Date Activated Date Inactivated Comments Full Code 09/03/2023 9:44 AM 09/03/2023 2:03 PM Latest Code Status on File Code Status Date Activated Date Inactivated Comments Full Code 09/03/2023 2:03 PM 09/04/2023 1:57 PM Code Status History Code Status Date Activated Date Inactivated Comments Full Code 09/03/2023 9:44 AM 09/03/2023 2:03 PM Date Activated Date Inactivated Comments 09/03/2023 2:03 PM 09/04/2023 1:57 PM Date Activated Date Inactivated Comments 09/03/2023 9:44 AM 09/03/2023 2:03 PM Advance Directive Response Recorded Date/ Time Living Will No May 31 10:16am Do you have a Healthcare Power of Adult Ministries Director? No May 31, 2024 10:16am Do you have a Healthcare Power of Adult Ministries Director? No August 31, 2024 4:28pm Reason for Referral Specialty Diagnoses / Procedures Referred By Contsu t Referred To Contact Diagnoses Von Willebrand disease (HCC) Procedures CONSULT TO HEMATOLOGY/ONCOLOGY OFFICE/OUTPATIENT [facility] MDM 60-74 MINUTES Danyell Elizabeth PA-C [address] [place] [address] Referral ID Status Reason Start Date Expiration Date Visits Requested Visits Authorized [id number] Pending Review PCP Requested Referral 08/05/2022 08/05/2023 1 1 Specialty Diagnoses / Procedures Referred By Contac t Referred To Contact Radiology Diagnoses Anesthesia of skin Paresthesia of skin Procedures MR brain w and wo contrast Nunu Cortez MD [address] [place] [id number] Referral ID Status Reason Start Date Expiration Date Visits Re quested Visits Authorized [id number] Closed 11/26/2022 05/25/2023 1 1 Specialty Diagnoses / Procedures Referred By Contac t Referred To Contact Radiology Diagnoses Postprandial RUQ pain Procedures NM hepatobiliary scan with pharm agent w/cck TylerMario suero APRN - CHILD DAY CARE TEACHER [address] [facility] [address] [place] [address] Referral ID Status Reason Start Date Expiration Date V isits Requested Visits Authorized [id number] Pending Review 05/26/2023 05/25/2024 3 3 Specialty Diagnoses / Procedures Referred By Contac t Referred To Contact Radiology Diagnoses Nausea and vomiting, unspecified vomiting type Procedures NM gastric emptying solid Mario Fernando CIVIL RIGHTS INVESTIGATOR - CHILD DAY CARE TEACHER [address] [facility] [address] [place] [id number] Referral ID Status Reason Start Date Expiration Date V isits Requested Visits Authorized [id number] Pending Review 05/26/2023 05/25/2024 3 3 Referral ID Status Reason Start Date Expiration Date V isits Requested Visits Authorized [id number] Authorized 05/26/2023 05/25/2024 3 3 Referral ID Status Reason Start Date Expiration Date V isits Requested Visits Authorized [id number] Authorized 05/26/2023 05/25/2024 3 3 Specialty Diagnoses / Procedures Referred By Contac t Referred To Contact Radiology Diagnoses Postprandial epigastric pain Elevated lipase Pancreatic lesion Procedures MR abdomen w and wo contrast Son Rosario MD [address] [facility] [address] [place] [address] Referral ID Status Reason Start Date Expiration Date V isits Requested Visits Authorized [id number] Authorized 07/07/2023 07/06/2024 1 1 Specialty Diagnoses / Procedures Referred By Contac t Referred To Contact Cardiology Diagnoses Postprandial epigastric pain Procedures Vascular US mesenteric artery duplex complete Rebecca Lorenzo PA-C [address] [facility] [address] [place] [address] Referral ID Status Reason Start Date Expiration Date Visits Re quested Visits Authorized [id number] Closed 07/05/2023 07/04/2024 1 1 Referral ID Status Reason Start Date Expiration Date Visits Re quested Visits Authorized [id number] Closed 07/07/2023 07/06/2024 1 1 Medications Administered Section Inactive Administered Medications - up to 3 most recent administrations Medication Order MAR Action Action Date Dose Rate Site desmopressin 20 mcg in NaCl 0.9% 50 mL (DDAVP) 20 mcg (rounded from 17.73 mcg = 0.3 mcg/kg/dose 59.1 kg Adjusted weight), INTRAVENOUS, at 100 mL/hr, Administer over 30 Minutes, ONCE, 1 dose, On Wed09/22/22 at 0900 New Bag/Syringe/Bottle 09/22/2022 9:24 AM EDT 20 mcg 100 mL/hr lactated ringers iv infusion 30 mL/hr, INTRAVENOUS, CONTINUOUS, Starting on Wed09/22/22 at 0730, Until Wed09/22/22 at 1156, Preprocedure Continued by Anesthesia 09/22/2022 10:25 AM EDT 30 mL/hr New Bag/Syringe/Bottle 09/22/2022 8:30 AM EDT 30 mL/hr 3 0 mL/hr lidocaine (PF) 10 mg/mL (1 %) 20 mg injection (XYLOCAINE) 20 mg (2 mL), INTRADERMAL, ONCE, 1 dose, On Wed09/22/22 at 0900, Given pre IV by Dr. Mitchell, Intraprocedure Given 09/22/2022 8:25 AM EDT [address], Right midazolam 2 mg injection (VERSED) 2 mg, INTRAVENOUS, PRE-OP ONCE, 1 dose, On Wed09/22/22 at 0900, Preprocedure Given 09/22/2022 9:01 AM EDT 2 mg midazolam 2 mg injection (VERSED) 2 mg, INTRAVENOUS, PRE-OP PRN, Starting on Wed09/22/22 at 0900, Until Wed09/22/22 at 1059, Anxiety - Parenteral, See admin instructions, Agitation, Preprocedure Given 09/22/2022 9:40 AM EDT 2 mg ondansetron (PF) 4 mg injection (ZOFRAN) 4 mg, INTRAVENOUS, ONCE, 1 dose, On Wed09/22/22 at 1130, Give IV push over 2 minutes Given 09/22/2022 11:22 AM EDT 4 mg Inactive Administered Medications - up to 3 most recent administrations Medication Order MAR Action Action Date Dose Rate Site desmopressin 20 mcg in NaCl 0.9% 50 mL (DDAVP) 20 mcg, INTRAVENOUS, at 100 mL/hr, Administer over 30 Minutes, ONCE, 1 dose, On Wed09/23/22 at 1130, Max dose is 30 mcg New Bag/Syringe/Bottle 09/23/2022 11:48 AM EDT 20 mcg 100 mL/hr Chief Complaint and Reason for Visit Chief Complaint ABD PAIN ABD PAIN Chief Complaint Admit Date abd pain May 31, 2024 9 :03am GI BLEED August 31, 2024 1:35pm Additional Source Comments INFORMATION SOURCE (unrecogn ized section and content) DATE CREATED AUTHOR 10/13/2017 [facility] DATE CREATED AUTHOR AUTHOR'S ORGANIZ ATION 05/06/2018 [facility] DATE CREATED AUTHOR AUTHOR'S ORGANIZ ATION 09/25/2020 [facility] DATE CREATED AUTHOR AUTHOR'S ORGANIZ ATION 01/30/2023 [facility] DATE CREATED AUTHOR AUTHOR'S ORGANIZ ATION 06/06/2024 [facility] DATE CREATED AUTHOR AUTHOR'S ORGANIZ ATION 06/28/2024 [facility] DATE CREATED AUTHOR AUTHOR'S ORGANIZ ATION 09/22/2024 [facility] DATE CREATED AUTHOR AUTHOR'S ORGANIZ ATION 10/05/2024 [facility] DATE CREATED AUTHOR AUTHOR'S ORGANIZ ATION 10/21/2024 [facility] Source Comments (unrecognize d section and content) In the event this informatio n is protected by the Federal Confidentiality of Alcohol and Drug Abuse Patient Records regulations: The Federal rules restrict any use of the information to criminally investigate or prosecute any alcohol or drug abuse patient.[facility] the event this information is protected by the Federal Confidentiality of Alcohol and Drug Abuse Patient Records regulations: The Federal rules restrict any use of the information to criminally investigate or prosecute any alcohol or drug abuse patient.[facility] Center[facility] the event this information is protected by the Federal Confidentiality of Alcohol and Drug Abuse Patient Records regulations: The Federal rules restrict any use of the information to criminally investigate or prosecute any alcohol or drug abuse patient.[facility] Center[facility] the event this information is protected by the Federal Confidentiality of Alcohol and Drug Abuse Patient Records regulations: The Federal rules restrict any use of the information to criminally investigate or prosecute any alcohol or drug abuse patient.[facility] the event this information is protected by the Federal Confidentiality of Alcohol and Drug Abuse Patient Records regulations: The Federal rules restrict any use of the information to criminally investigate or prosecute any alcohol or drug abuse patient.[facility] Center[facility] the event this information is protected by the Federal Confidentiality of Alcohol and Drug Abuse Patient Records regulations: The Federal rules restrict any use of the information to criminally investigate or prosecute any alcohol or drug abuse patient.[facility] Center[facility] the event this information is protected by the Federal Confidentiality of Alcohol and Drug Abuse Patient Records regulations: The Federal rules restrict any use of the information to criminally investigate or prosecute any alcohol or drug abuse patient.[facility] Center[facility] the event this information is protected by the Federal Confidentiality of Alcohol and Drug Abuse Patient Records regulations: The Federal rules restrict any use of the information to criminally investigate or prosecute any alcohol or drug abuse patient.[facility] Center[facility] the event this information is protected by the Federal Confidentiality of Alcohol and Drug Abuse Patient Records regulations: The Federal rules restrict any use of the information to criminally investigate or prosecute any alcohol or drug abuse patient.[facility] Center[facility] the event this information is protected by the Federal Confidentiality of Alcohol and Drug Abuse Patient Records regulations: The Federal rules restrict any use of the information to criminally investigate or prosecute any alcohol or drug abuse patient.[facility] Center[facility] the event this information is protected by the Federal Confidentiality of Alcohol and Drug Abuse Patient Records regulations: The Federal rules restrict any use of the information to criminally investigate or prosecute any alcohol or drug abuse patient.[facility] Center[facility] the event this information is protected by the Federal Confidentiality of Alcohol and Drug Abuse Patient Records regulations: The Federal rules restrict any use of the information to criminally investigate or prosecute any alcohol or drug abuse patient.[facility] Center[facility] the event this information is protected by the Federal Confidentiality of Alcohol and Drug Abuse Patient Records regulations: The Federal rules restrict any use of the information to criminally investigate or prosecute any alcohol or drug abuse patient.[facility] CenterIn the event this information is protected by the Federal Confidentiality of Alcohol and Drug Abuse Patient Records regulations: The Federal rules restrict any use of the information to criminally investigate or prosecute any alcohol or drug abuse patient.[facility] CenterIn the event this information is protected by the Federal Confidentiality of Alcohol and Drug Abuse Patient Records regulations: The Federal rules restrict any use of the information to criminally investigate or prosecute any alcohol or drug abuse patient.[facility] CenterIn the event this information is protected by the Federal Confidentiality of Alcohol and Drug Abuse Patient Records regulations: The Federal rules restrict any use of the information to criminally investigate or prosecute any alcohol or drug abuse patient.[facility] CenterIn the event this information is protected by the Federal Confidentiality of Alcohol and Drug Abuse Patient Records regulations: The Federal rules restrict any use of the information to criminally investigate or prosecute any alcohol or drug abuse patient.[facility] CenterIn the event this information is protected by the Federal Confidentiality of Alcohol and Drug Abuse Patient Records regulations: The Federal rules restrict any use of the information to criminally investigate or prosecute any alcohol or drug abuse patient.[facility] CenterIn the event this information is protected by the Federal Confidentiality of Alcohol and Drug Abuse Patient Records regulations: The Federal rules restrict any use of the information to criminally investigate or prosecute any alcohol or drug abuse patient.[facility] CenterIn the event this information is protected by the Federal Confidentiality of Alcohol and Drug Abuse Patient Records regulations: The Federal rules restrict any use of the information to criminally investigate or prosecute any alcohol or drug abuse patient.[facility] CenterIn the event this information is protected by the Federal Confidentiality of Alcohol and Drug Abuse Patient Records regulations: The Federal rules restrict any use of the information to criminally investigate or prosecute any alcohol or drug abuse patient.[facility] CenterIn the event this information is protected by the Federal Confidentiality of Alcohol and Drug Abuse Patient Records regulations: The Federal rules restrict any use of the information to criminally investigate or prosecute any alcohol or drug abuse patient.[facility] CenterIn the event this information is protected by the Federal Confidentiality of Alcohol and Drug Abuse Patient Records regulations: The Federal rules restrict any use of the information to criminally investigate or prosecute any alcohol or drug abuse patient.[facility] CenterIn the event this information is protected by the Federal Confidentiality of Alcohol and Drug Abuse Patient Records regulations: The Federal rules restrict any use of the information to criminally investigate or prosecute any alcohol or drug abuse patient.[facility] CenterIn the event this information is protected by the Federal Confidentiality of Alcohol and Drug Abuse Patient Records regulations: The Federal rules restrict any use of the information to criminally investigate or prosecute any alcohol or drug abuse patient.[facility] CenterIn the event this information is protected by the Federal Confidentiality of Alcohol and Drug Abuse Patient Records regulations: The Federal rules restrict any use of the information to criminally investigate or prosecute any alcohol or drug abuse patient.[facility] CenterIn the event this information is protected by the Federal Confidentiality of Alcohol and Drug Abuse Patient Records regulations: The Federal rules restrict any use of the information to criminally investigate or prosecute any alcohol or drug abuse patient.[facility] CenterIn the event this information is protected by the Federal Confidentiality of Alcohol and Drug Abuse Patient Records regulations: The Federal rules restrict any use of the information to criminally investigate or prosecute any alcohol or drug abuse patient.[facility] CenterIn the event this information is protected by the Federal Confidentiality of Alcohol and Drug Abuse Patient Records regulations: The Federal rules restrict any use of the information to criminally investigate or prosecute any alcohol or drug abuse patient.[facility] CenterIn the event this information is protected by the Federal Confidentiality of Alcohol and Drug Abuse Patient Records regulations: The Federal rules restrict any use of the information to criminally investigate or prosecute any alcohol or drug abuse patient.[facility] CenterIn the event this information is protected by the Federal Confidentiality of Alcohol and Drug Abuse Patient Records regulations: The Federal rules restrict any use of the information to criminally investigate or prosecute any alcohol or drug abuse patient.[facility] CenterIn the event this information is protected by the Federal Confidentiality of Alcohol and Drug Abuse Patient Records regulations: The Federal rules restrict any use of the information to criminally investigate or prosecute any alcohol or drug abuse patient.[facility] Reason for Visit (unrecogniz ed section and content) Reason Onset Date Comments Trauma 01/15/2020 Reason Comments Abdominal Pain Everything she eats causes pain, diarrhea or vomiting. Has been talking to primary care about this possible crohns. Reason Comments Refill Request Reason Comments Orders Reason Comments Appointment Rescheduled Spoke with Dr. Home pate's office at [facility] regarding scheduling patient for EGD & colon after IV infusion of DDAVP for Von Willebrand. Dr. Purvis's office will call to coordinate schedules. Reason Comments Patient Update Reason Comments Follow-up Reason Comments Orders Patient Question Reason Comments Appointment Orders Reason Comments von willebrand disease Reason Comments Consult New patient - needs a colonoscopy order Specialty Diagnoses / Procedures Referred By Contac t Referred To Contact Diagnoses Von Willebrand disease (HCC) Procedures CONSULT TO HEMATOLOGY/ONCOLOGY OFFICE/OUTPATIENT NEW HIGH MDM 60-74 MINUTES Danyell Elizabeth PA-C [address] [place] [address] Referral ID Status Reason Start Date Expiration Date Visits Requested Visits Authorized [id number] Pending Review PCP Requested Referral 08/05/2022 08/05/2023 1 1 Reason Comments Infusion Specialty Diagnoses / Procedures Referred By Contac t Referred To Contact HEMONC INFUSION Diagnoses DDAVP Procedures 1STTREATMENT 1.5 HOURS Bakari Silva MD [address] [facility] [address] [place] [address] Kemal Treat [place] [address] [place] [address] Referral ID Status Reason Start Date Expiration Date Visits Requested Visits Authorized [id number] Pending Review Patient Cleared - Admin/Chair man/Directo r advise to proceed 09/23/2022 12/21/2022 1 1 Specialty Diagnoses / Procedures Referred By Contac t Referred To Contact Radiology Diagnoses Anesthesia of skin Paresthesia of skin Procedures MR brain w and wo contrast Nunu Cortez MD [address] [place] [address] Referral ID Status Reason Start Date Expiration Date Visits Re quested Visits Authorized [id number] Closed 11/26/2022 05/25/2023 1 1 Reason Onset Date Comments Records 01/25/2023 Reason Onset Date Comments covid positive 02/13/2023 Reason Comments Radiology US Specialty Diagnoses / Procedures Referred By Contac t Referred To Contact US IMAGING Diagnoses Bilious vomiting with nausea Generalized abdominal pain Diarrhea, unspecified type Procedures US ABD RT UPPER QUADRANT US ABDOMINAL REAL TIME W/IMAGE LIMITED Danyell Gann PA-C [address] [facility] [place] [address] [place] [address] Referral ID Status Reason Start Date Expiration Date V isits Requested Visits Authorized [id number] Closed Auto-Generate d Referral 06/02/2022 07/02/2023 1 1 Reason Onset Date Comments Medication Problem 03/13/2023 Reason Onset Date Comments New Patient 04/22/2023 New Pt appt sche duled for 05/26 at [facility] with Mignon Fernando. Reason Comments New Patient Abdominal Pain Irritable Bowel Syndrome States she has a current diagnosis Specialty Diagnoses / Procedures Referred By Contac t Referred To Contact Gastroenterology Diagnoses Unspecified abdominal pain Procedures GASTROINTESTINAL (GI) SERVICES-GENERAL Nunu Cortez MD [address] [place] [address] [facility] [address] [place] [phone] Referral ID Status Reason Start Date Expiration Date Visits Re quested Visits Authorized [id number] Closed 04/12/2023 04/12/2024 1 1 Reason Onset Date Comments Release of Information 06/01/2023 Specialty Diagnoses / Procedures Referred By Contac t Referred To Contact Radiology Diagnoses Nausea and vomiting, unspecified vomiting type Procedures NM gastric emptying solid Mario Fernando, CIVIL RIGHTS INVESTIGATOR - CHILD DAY CARE TEACHER [address] [place] [address] [place] [address] Referral ID Status Reason Start Date Expiration Date V isits Requested Visits Authorized [id number] Authorized 05/26/2023 05/25/2024 3 3 Specialty Diagnoses / Procedures Referred By Contac t Referred To Contact Radiology Diagnoses Postprandial RUQ pain Procedures NM hepatobiliary scan with pharm agent w/cck Mario Fernando, CIVIL RIGHTS INVESTIGATOR - CHILD DAY CARE TEACHER [address] [place] [address] Referral ID Status Reason Start Date Expiration Date V isits Requested Visits Authorized [id number] Authorized 05/26/2023 05/25/2024 3 3 Reason Comments Abdominal Pain Reason Comments 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 [place] [address] Melvin Posey MD [address] [facility] [address] [place] [address] Referral ID Status Reason Start Date Expiration Date V isits Requested Visits Authorized [id number] Closed Specialty Services Required 06/24/2023 06/23/2024 1 1 Reason Comments abdominal mass Abdominal mass Specialty Diagnoses / Procedures Referred By Contac t Referred To Contact General Surgery Diagnoses Postprandial epigastric pain Elevated lipase Pancreatic lesion Procedures [place] OFFICE/OUTPATIENT NEW HIGH MDM 60 MINUTES Rebecca Lorenzo PA-C [address] [facility] [address] [place] [address] Son Rosario MD [address] [facility] [address] [place] [address] Referral ID Status Reason Start Date Expiration Date Visits Requested Visits Authorized [id number] Pending Review Specialty Services Required 07/05/2023 07/04/2024 1 1 Reason Onset Date Comments Appointment Request 06/24/2023 06/24/23 refe rral for Dx: Postprandial RUQ pain Specialty Diagnoses / Procedures Referred By Contac t Referred To Contact Cardiology Diagnoses Postprandial epigastric pain Procedures Vascular US mesenteric artery duplex complete Rebecca Lorenzo PA-C [address] [facility] [address] [place] [address] Referral ID Status Reason Start Date Expiration Date Visits Re quested Visits Authorized [id number] Closed 07/05/2023 07/04/2024 1 1 Specialty Diagnoses / Procedures Referred By Contac t Referred To Contact Radiology Diagnoses Postprandial epigastric pain Elevated lipase Pancreatic lesion Procedures MR abdomen w and wo contrast Son Rosario MD [address] [place] [address] Referral ID Status Reason Start Date Expiration Date Visits Re quested Visits Authorized [id number] Closed 07/07/2023 07/06/2024 1 1 Reason Comments Established Patient Reason Comments Question Reason Onset Date Comments Results 08/03/2023 MRI Reason Onset Date Comments Appointment 08/10/2023 Reason Comments VWD Specialty Diagnoses / Procedures Referred By Contac t Referred To Contact Diagnoses Epigastric pain EPIGASTRIC PAIN Procedures [place] LAPAROSCOPY SURG CHOLECYSTECTOMY LAPAROSCOPIC CHOLECYSTECTOMY POSSIBLE OPEN Melvin Posey MD [address] [place] [address] [address] [facility] [place] [address] Referral ID Status Reason Start Date Expiration Date Visits Re quested Visits Authorized [id number] 1 1 Reason Comments Post-op ALS PO LAP HUYEN 08/24 Reason Onset Date Comments Appointment 12/17/2023 Reason Comments New Patient Von Willebrand Disea se Reason Onset Date Comments OTHER 06/29/2022 Reason Comments Abdominal Pain Diarrhea Reason Onset Date Comments Flank Pain 06/05/2024 Reason Comments Appointment Telephone Encounter - Dacia Yarbrough (Machine Designer Trev)TREV - 01/15/2020 4:49 PM EDT Miscellaneous Notes (unrecog nized section and content) She called and states that she thinks she broke her finger. It is swollen and bruised on one side. She tells me that [employer] is recalled currently. She was told if her finger continues to swell and bruise she will need to come in right away to see us Dacia Yarbrough APRN.CHILD DAY CARE TEACHER Electronically signed by Dacia Lion (Machine Designer Working Second Hand) TREV Yarbrough at 01/15/2020 4:50 PM EDTdocumented in this encounter Care Teams (unrecognized sec tion and content) Tooler Relationship Specialty Start Date End Date Nunu Cortez MD [address] [place] [address] [id number] PCP - General Family Medicine 04/29/22 [address] [facility] [place] [address] 02/23/17 Tooler Relationship Specialty Start Date End Date Nunu Cortez MD [address] [place] [address], [place] [address] PCP - General Family Medicine 04/29/22 [address] [place] [address] 02/23/17 Tooler Relationship Specialty Start Date End Date Nunu Cortez MD [address] [place] [address] PCP - General Family Medicine 04/29/22 Gordon [address] [place] [phone] 02/23/17 Tooler Relationship Specialty Start Date End Date Nunu Cortez MD [address] [place] [address] PCP - General Family Medicine 04/29/22 [address] [place] [address] 02/23/17 Tooler Relationship Specialty Start Date End Date Nunu Cortez MD [address] [place] [address] PCP - General Family Medicine 04/29/22 Gordon [address] [place] [phone] 02/23/17 Tooler Relationship Specialty Start Date End Date Nunu Cortez MD [address] [place] [address] PCP - General Family Medicine 04/29/22 Gordon [address] [place] [phone] 02/23/17 Tooler Relationship Specialty Start Date End Date Nunu Cortez MD [address] [place] [address] PCP - General Family Medicine 06/23/22 Jeff Purvis MD [address] [address] Consulting Physician Hematology and Oncology 06/23/22 Tooler Relationship Specialty Start Date End Date Nunu Cortez MD [address] [place] [address] PCP - General Family Medicine 04/29/22 [address] [place] [phone] 02/23/17 Tooler Relationship Specialty Start Date End Date Nunu Cortez MD [address] [place] [address] PCP - General Family Medicine 04/29/22 Gordon N[address] [place] [phone] 02/23/17 Tooler Relationship Specialty Start Date End Date Nunu Cortez MD [address] [place] [address] PCP - General Family Medicine 04/29/22 Gordon N[address] [place] [phone] 02/23/17 Tooler Relationship Specialty Start Date End Date Nunu Cortez MD [address] [place] [address] PCP - General Family Medicine 04/29/22 [address] [facility] [place] [address] 02/23/17 Tooler Relationship Specialty Start Date End Date Nunu Cortez MD [address] [place] [address] PCP - General Family Medicine 04/29/22 [address] [place] [address] 02/23/17 Tooler Relationship Specialty Start Date End Date Nunu Cortez MD [address] [place] [address] PCP - General Family Medicine 04/29/22 Gordon Nur Sr[address] [place] [address], [place] [address] 02/23/17 Tooler Relationship Specialty Start Date End Date Nunu Cortez MD [address] [place] [address] PCP - General Family Medicine 04/29/22 [address] [facility] [place] [address] 02/23/17 Tooler Relationship Specialty Start Date End Date Nunu Cortez MD [address] [place] [address] PCP - General Family Medicine 04/29/22 [address] [place] [address] 02/23/17 Tooler Relationship Specialty Start Date End Date Nunu Cortez MD [address] [place] [address] PCP - General Family Medicine 06/23/22 Jeff Purvis MD [address] [address] Consulting Physician Hematology and Oncology 06/23/22 Tooler Relationship Specialty Start Date End Date Nunu Cortez MD [address] [place] [address] PCP - General Family Medicine 06/23/22 Jeff Purvis MD [address] [address] Consulting Physician Hematology and Oncology 06/23/22 Tooler Relationship Specialty Start Date End Date Nunu Cortez MD [address] [place] [address] PCP - General Family Medicine 04/29/22 [address] [place] [address] 02/23/17 Tooler Relationship Specialty Start Date End Date Nunu Cortez MD [address] [place] [address] PCP - General Family Medicine 06/23/22 Jeff Purvis MD [address] [facility] [address] [place] [address] Consulting Physician Hematology and Oncology 06/23/22 Tooler Relationship Specialty Start Date End Date Nunu Cortez MD [address] [place] [address] PCP - General Family Medicine 04/29/22 [address] [place] [address] 02/23/17 Tooler Relationship Specialty Start Date End Date Nunu Cortez MD [address] [place] [address] PCP - General Family Medicine 04/29/22 [address] [place] [address] 02/23/17 Tooler Relationship Specialty Start Date End Date Nunu Cortez MD [address] [place] [address] PCP - General Family Medicine 06/23/22 Jeff Purvis MD [address] [address] Consulting Physician Hematology and Oncology 06/23/22 Tooler Relationship Specialty Start Date End Date Nunu Cortez MD [address] [place] [address] PCP - General Family Medicine 06/23/22 Jeff Purvis MD [address] [place] [place] [address] Consulting Physician Hematology and Oncology 06/23/22 Tooler Relationship Specialty Start Date End Date Nunu Cortez MD [address] [place] [place], [place] [address] PCP - General Family Medicine 06/23/22 Jeff Purvis MD [address] [place] [address] Consulting Physician Hematology and Oncology 06/23/22 Tooler Relationship Specialty Start Date End Date Nunu Cortez MD [address] [place] [address] PCP - General Family Medicine 06/23/22 Jeff Purvis MD [address] [place] [place] [address] Consulting Physician Hematology and Oncology 06/23/22 Tooler Relationship Specialty Start Date End Date Nunu Cortez MD [address] [place] [address] PCP - General Family Medicine 06/23/22 Jeff Purvis MD [address] [place] [address] Consulting Physician Hematology and Oncology 06/23/22 Team Status: Active Member Role Status Dates Dr. Nunu Cortez MD Primary Care Provider Active Team Status: Inactive Member Role Status Dates Dr. Nunu Cortez MD Primary Care Provider Active Dr. Ventura Bah DO Attending Provider, Emergency Provider Active Team Status: Inactive Member Role Status Dates Dr. Nunu Cortez MD Primary Care Provider Active Dr. Branden Huang MD Emergency Provider Active Tooler Relationship Specialty Start Date End Date Nunu Cortez MD [address] [place] [address] PCP - General Family Medicine 04/29/22 Gordon [address] [facility] [place] [address] 02/23/17 Tooler Relationship Specialty Start Date End Date Nunu Cortez MD [address] [place], [place] [address] PCP - General Family Medicine 06/23/22 Jeff Purvis MD [address] [address] Consulting Physician Hematology and Oncology 06/23/22 Tooler Relationship Specialty Start Date End Date Nunu Cortez MD [address] [place] [address] PCP - General Family Medicine 06/23/22 Bakari Silva MD [address] [place] [address] Hematology and Oncology 07/05/23 Tooler Relationship Specialty Start Date End Date Nunu Cortez MD [address] [place] [address] PCP - General Family Medicine 06/23/22 Bakari Silva MD [address] [place] [address] Hematology and Oncology 07/05/23 Tooler Relationship Specialty Start Date End Date Nunu Cortez MD [address] [place] [address] PCP - General Family Medicine 06/23/22 Bakari Silva MD [address] [place] [address] Hematology and Oncology 07/05/23 Tooler Relationship Specialty Start Date End Date Nunu Cortez MD [address] [place] [address] PCP - General Family Medicine 06/23/22 Jeff Purvis MD [address] [address] Consulting Physician Hematology and Oncology 06/23/22 07/04/23 Bakari Silva MD [address] [place] [address] Hematology and Oncology 07/05/23 Tooler Relationship Specialty Start Date End Date Nunu Cortez MD [address] [place] [address] PCP - General Family Medicine 06/23/22 Bakari Silva MD [address] [place] [address] Hematology and Oncology 07/05/23 Tooler Relationship Specialty Start Date End Date Nunu Cortez MD [address] [place] [address] PCP - General Family Medicine 04/29/22 Gordon Nur Sr[address] [place], [place] [address] [address] 02/23/17 Tooler Relationship Specialty Start Date End Date Nunu Cortez MD [address] [facility] [place] [address] PCP - General Family Medicine 06/23/22 Bakari Silva MD [address] [place] [address] Hematology and Oncology 07/05/23 Tooler Relationship Specialty Start Date End Date Nunu Cortez MD [address] [facility] [place] [address] PCP - General Family Medicine 06/23/22 Bakari Silva MD [address] [place] [address] Hematology and Oncology 07/05/23 Tooler Relationship Specialty Start Date End Date Nunu Cortez MD [address] [place] [address] PCP - General Family Medicine 04/29/22 Gordon Nur Sr[address] [place] [address] 02/23/17 Bakari Silva MD [address] [address] [place] [address] Hematology/Oncology 08/02/23 Melvin Posey [address] [place] [address] General Surgery 08/02/23 Tooler Relationship Specialty Start Date End Date Nunu Cortez MD [address] [place] [address] PCP - General Family Medicine 04/29/22 Gordon Nur Sr[address] [place] [address] 02/23/17 Bakari Silva MD [address] [place] [address] [place] [address] Hematology/Oncology 08/02/23 Melvin Posey [address] [place] [address] General Surgery 08/02/23 Tooler Relationship Specialty Start Date End Date Nunu Cortez MD [address] [place] [address] PCP - General Family Medicine 06/23/22 Bakari Silva MD [address] [place] [address] Hematology and Oncology 07/05/23 Tooler Relationship Specialty Start Date End Date Nunu Cortez MD [address] [place] [address] PCP - General Family Medicine 06/23/22 Bakari Silva MD [address] [place] [address] Hematology and Oncology 07/05/23 Tooler Relationship Specialty Start Date End Date Nunu Cortez MD [address] [place] [address] PCP - General Family Medicine 06/23/22 Bakari Silva MD [address] [place] [address] Hematology and Oncology 07/05/23 Tooler Relationship Specialty Start Date End Date Nunu Cortez MD [address] [place] [address] PCP - General Family Medicine 06/23/22 Bakari Silva MD [address] [place] [address] Hematology and Oncology 07/05/23 Tooler Relationship Specialty Start Date End Date Nunu Cortez MD [address] [place] [address] PCP - General Family Medicine 04/29/22 Gordon Nur Sr. [address] [facility] [place] [address] 02/23/17 Bakari Silva MD [address] [facility] [address] [place] [address] Hematology/Oncology 08/02/23 Melvin Posey [address] [place] [address] [place] [address] General Surgery 08/02/23 Tooler Relationship Specialty Start Date End Date Nunu Cortez MD [address] [place] [address] PCP - General Family Medicine 06/23/22 Bakari Silva MD [address] [place] [address] Hematology and Oncology 07/05/23 Tooler Relationship Specialty Start Date End Date Nunu Cortez MD [address] [place] [address] PCP - General Family Medicine 04/29/22 Gordon Nur Sr. [address] [place] [facility] [place] [address] 02/23/17 Bakari Silva MD [address] [place] [address] [place] [address] Hematology/Oncology 08/02/23 Melvin Posey [address] [place] [address] General Surgery 08/02/23 Tooler Relationship Specialty Start Date End Date Nunu Cortez MD [address] [place] [address] PCP - General Family Medicine 04/29/22 Gordon Nur Sr[address] [place] [address] 02/23/17 Bakari Silva MD [address] [address] [place] [address] Hematology/Oncology 08/02/23 Melvin Posey [address] [address] [place] [address] General Surgery 08/02/23 Tooler Relationship Specialty Start Date End Date Nunu Cortez MD [address] [place], [place] [address] PCP - General Family Medicine 06/23/22 Bakari Silva MD [address] [place], [place] [id number] Hematology and Oncology 07/05/23 Tooler Relationship Specialty Start Date End Date Nunu Cortez MD [address] [place], [place] [address] PCP - General Family Medicine 06/23/22 Bakari Silva MD [address] [place] [address] Hematology and Oncology 07/05/23 Tooler Relationship Specialty Start Date End Date Nunu Cortez MD [address] [place] [address] PCP - General Family Medicine 06/23/22 Bakari Silva MD [address] [place] [address] Hematology and Oncology 07/05/23 Tooler Relationship Specialty Start Date End Date Nunu Cortez MD [address] [place] [address] PCP - General Family Medicine 06/23/22 Jeff Puvris MD [address] [address] Consulting Physician Hematology and Oncology 06/23/22 Tooler Relationship Specialty Start Date End Date Nunu Cortez MD [address] [place] [address] PCP - General Family Medicine 06/23/22 Jeff Purvis MD [address] [facility] [address] [place] [address] Consulting Physician Hematology and Oncology 06/23/22 Tooler Relationship Specialty Start Date End Date Nunu Cortez MD [address] [place] [address] PCP - General Family Medicine 06/23/22 Jeff Purvis [facility] [address] [facility] [address] [place] [address] Consulting Physician Hematology and Oncology 06/23/22 Tooler Relationship Specialty Start Date End Date Nunu Cortez MD [address] [place] [address] PCP - General Family Medicine 06/23/22 Jeff Purvis MD [address] [facility] [address] [place] [address] Consulting Physician Hematology and Oncology 06/23/22 Tooler Relationship Specialty Start Date End Date Nunu Cortez MD [address] [place] [address] PCP - General Family Medicine 04/29/22 Gordon Nur Sr. [address] [facility] [place] [address] 02/23/17 Bakari Silva MD [address] [place] [address] [place] [address] Hematology/Oncology 08/02/23 Melvin Posey [address] [place] [address] [place] [address] General Surgery 08/02/23 Tooler Relationship Specialty Start Date End Date Nunu Cortez MD [address] [place] [address] PCP - General Family Medicine 04/29/22 Gordon Nur Sr. [address] [place] [facility] [place] [address] 02/23/17 Bakari Silva MD [address] [place] [address] [place] [address] Hematology/Oncology 08/02/23 Melvin Posey [address] [place] [address] [place] [address] General Surgery 08/02/23 Tooler Relationship Specialty Start Date End Date Nunu Cortez MD [address] [place] [address] PCP - General Family Medicine 04/29/22 Gordon Nur Sr. [address] [place] [address] 02/23/17 Bakari Silva MD [address] [place] [address] [place] [address] Hematology/Oncology 08/02/23 Melvin Posey [address] [place] [address] [place] [address] General Surgery 08/02/23 Team Status: Inactive Member Role Status Dates Dr. Nunu Cortez MD Primary Care Provider Active Start: May 31, 2024 End: May 31, 2024 Dr. Alonzo Argueta DO Attending Provider Active Start : May 31, 2024 End: May 31, 2024 Dr. Alonzo Argueta DO Emergency Provider Active Start : May 31, 2024 End: May 31, 2024 Team Status: Inactive Member Role Status Dates Dr. Nunu Cortez MD Primary Care Provider Active Start: August 31, 2024 End: August 31, 2024 Dr. Tom Garcia DO Referring Provider Active S tart: August 31, 2024 End: August 31, 2024 Dr. Tom Garcia DO Emergency Provider Active S tart: August 31, 2024 End: August 31, 2024 Tooler Relationship Specialty Start Date End Date Nunu Cortez MD [address] [place] [address] PCP - General Family Medicine 04/29/22 Gordon Nur Sr. [address] [place] [id number] 02/23/17 Bakari Silva MD [address] [facility] [place] [address] [place] [address] Hematology/Oncology 08/02/23 Melvin Posey [address] [facility] [place] [address] [place] [phone] General Surgery 08/02/23 Tooler Relationship Specialty Start Date End Date Nunu Cortez MD [address] [place] [address] PCP - General Family Medicine 04/29/22 Gordon Nur Sr. [address] [place] [id number] 02/23/17 Bakari Silva MD [address] [place] [address] [place] [address] Hematology/Oncology 08/02/23 Melvin Posey [address] [place] [address] [place] [address] General Surgery 08/02/23 Goals (unrecognized section and content) Goals may be documented in a n alternate sectionGoals may be documented in an alternate section Scheduled Active and Recently Administ ered Medications (unrecognized section and content) Medication Order 06/23/2023 06/24/2023 06/25/2023 diphenhydrAMINE (BENADryl) injection 25 mg (COMPLETED) 25 mg, IntraVENous, Once, On Wed06/25/23 at 0015, For 1 dose 0017 (Given - Provid er: Anna Mcdermott RN) metoclopramide (Reglan) injection 10 mg (COMPLETED) 10 mg, IntraVENous, Once, On Wed06/25/23 at 0015, For 1 dose 0017 (Given - Provid er: Anna Mcdermott RN) morphine injection 4 mg (COMPLETED) 4 mg, IntraVENous, Once, On Val 06/24/23 at 2200, For 1 dose, If oral and IV narcotics ordered, use oral first and only use IV if oral is ineffective or cannot take oral. Do Not give oral and IV within 1 hour of each other unless specifically ordered. 2234 (Given - Provider: Anna Mcdermott RN - Comment: spo2 100 rabp 109/75) ondansetron (Zofran) injection 4 mg (COMPLETED) 4 mg, IntraVENous, Once, On Val 06/24/23 at 2200, For 1 dose 2231 (Given - Provider: Anna Mcdermott, NEYMAR) sodium chloride 0.9 % bolus 1,000 mL (COMPLETED) 1,000 mL, IntraVENous, at 1,000 mL/hr, Administer over 1 Hours, Once, On Val 06/24/23 at 2155, For 1 dose 2230 (New Bag - Provider: Anna Mcdermott RN)2330 (Stopped - Provider: LACIE Leary) PRN Medication Order 06/23/2023 06/24/2023 06/25/2023 iopamidol (Isovue-370) 76 % injection 100 mL (COMPLETED) 100 mL, IntraVENous, IMG once PRN, contrast, Starting on Val 06/24/23 at 2356, For 1 dose 2356 (Given - Provider: Barbara Rose, RT (R)(CT)) Scheduled Medication Order 09/02/2023 09/03/2023 09/04/2023 acetaminophen (Tylenol) tablet 1,000 mg (COMPLETED) 1,000 mg, Oral, Once, On Wed09/03/23 at 0945, For 1 dose, Preprocedure, Maximum dose of acetaminophen is 4000 mg from all sources in 24 hours. Do not administer if patient has taken tylenol <6 hours earlier. Do not give if contraindicated ie. patient has active liver disease or cirrhosis. 1005 (Given - Provider: Germain Benavidez RN) antihemophilic factor-vwf (AlphaNATE) injection (dosed in VWF units) 3,330 VWF:RCo Units (COMPLETED) 3,330 VWF:RCo Units, IntraVENous, Once, On Wed09/03/23 at 0945, For 1 dose, Preprocedure 1020 (Given - Provider: Marco Antonio Stewart CRNA) antihemophilic factor-vwf (AlphaNATE) injection (dosed in VWF) 1,920 VWF:RCo Units (COMPLETED) 1,920 VWF:RCo Units, IntraVENous, Once, On Wed09/04/23 at 0930, For 1 dose 0919 (Given - Provid er: Anna Noble RN) ceFAZolin in dextrose 4% (Ancef) IVPB 2,000 mg (COMPLETED) 2,000 mg, IntraVENous, Administer over 30 Minutes, Escort Patients to O.R., On Wed09/03/23 at 0945, For 1 dose, Preprocedure, Administer within 1 hour prior to incision. Recommend to repeat in 3-4 hours after initial dose if still intra-op. premix bag, Suspected Indication (Select all that apply): Surgical Prophylaxis 1041 (Given - Provider: Marco Antonio Stewart CRNA) famotidine (Pepcid) tablet 20 mg (COMPLETED)(Linked Group 1) 20 mg, Oral, Once, On Wed09/03/23 at 0945, For 1 dose, Preprocedure, IV or ORAL 1005 (Given - Provider: Germain Benavidez RN) gabapentin (Neurontin) capsule 100 mg (COMPLETED) 100 mg, Oral, Once, On Wed09/03/23 at 0945, For 1 dose, Preprocedure, For Age >69 or Low GFR. 100 (Given - Provider: Germain Benavidez RN) venlafaxine XR (Effexor XR) 24 hr capsule 150 mg 150 mg, Oral, Nightly, First dose on Wed09/03/23 at 2100, Phase II/On Unit, Capsule may be swallowed whole, or may be opened and its contents sprinkled on applesauce if consumed immediately without chewing. Do not crush or chew. 2123 (Given - Provider: Quang Cheng RN) venlafaxine XR (Effexor XR) 24 hr capsule 37.5 mg 37.5 mg, Oral, Nightly, First dose on Wed09/03/23 at 2100, Phase II/On Unit, Capsule may be swallowed whole, or may be opened and its contents sprinkled on applesauce if consumed immediately without chewing. Do not crush or chew. 2123 (Given - Provider: Quang Cheng RN) Continuous Medication Order 09/02/2023 09/03/2023 09/04/2023 lactated Ringer's (LR) infusion 50 mL/hr, IntraVENous, Continuous, Starting on Wed09/03/23 at 0945, Preprocedure, Upon admission to sameday - please start iv if patient does not have iv access. Use 500ml NS for patients on dialysis. 1005 (New Bag - Provider: Katelyn Benavidez RN)1031 (Paused - Provider: Marco Antonio Stewart CRNA - Comment: Switch to gravity)1032 (Restarted - Provider: Marco Antonio Stewart CRNA)1116 (Stopped - Provider: Marco Antonio Stewart CRNA) PRN Medication Order 09/02/2023 09/03/2023 09/04/2023 acetaminophen (Tylenol) tablet 1,000 mg 1,000 mg, Oral, Every 8 hours PRN, mild pain (1-3), Starting on Wed09/03/23 at 1403, Phase II/On Unit, Maximum dose of acetaminophen is 4000 mg from all sources in 24 hours. ALPRAZolam (Xanax) tablet 0.25 mg 0.25 mg, Oral, Daily PRN, anxiety, Starting on Wed09/03/23 at 1403, Phase II/On Unit 2138 (Given - Provider: Quang Cheng RN) HYDROmorphone (Dilaudid) injection 0.25 mg(Linked Group 2) 0.25 mg, IntraVENous, Every 3 hours PRN, moderate pain (4-6), Starting on Wed09/03/23 at 1403, Phase II/On Unit, If oral and IV narcotics ordered, use oral first and only use IV if oral is ineffective or cannot take oral. Do Not give oral and IV within 1 hour of each other unless specifically ordered. 1812 (See Alternative - Provider: Kyara Gaines RN)2245 (See Alternative - Provider: Quang Cheng RN) 05 (See Alternative - Provider: Quang Cheng RN)1112 (See Alternative - Provider: Anna Noble, NEYMAR) HYDROmorphone (Dilaudid) injection 0.5 mg(Linked Group 2) 0.5 mg, IntraVENous, Every 3 hours PRN, severe pain (7-10), Starting on Wed09/03/23 at 1403, Phase II/On Unit, If oral and IV narcotics ordered, use oral first and only use IV if oral is ineffective or cannot take oral. Do Not give oral and IV within 1 hour of each other unless specifically ordered. 1812 (Given - Provider: Kyara Gaines RN)2245 (Given - Provider: Quang Cheng RN) 05 (Given - Provider: Quang Cheng RN)1112 (Given - Provider: Anna Noble, NEYMAR) HYDROmorphone (Dilaudid) injection 0.5 mg (CANCELED) 0.5 mg, IntraVENous, Every 5 min PRN, severe pain (7-10), Starting on Wed09/03/23 at 1200, For 4 doses, Recovery (only), Phase I and Phase II- Initial therapy for severe pain (7-10). Restricted to a 90 minute time frame starting when the patient can verbally state their pain score. If after 2 doses the pain score does not decrease by more than one point, then call the provider. If oral meds are utilized, do not return to initial therapy medications. 1203 (Given - Provider: Dacia Barrett, NEYMAR)1209 (Given - Provider: Dacia Barrett, NEYMAR) LORazepam (Ativan) injection 0.5 mg (COMPLETED) 0.5 mg, IntraVENous, Once PRN, for anxiety or muscle spasm., Starting on Wed09/03/23 at 1200, For 1 dose, Recovery (only), For IV doses dilute dose with 1ml NS. 1223 (Given - Provider: Dacia Barrett RN) naloxone (Narcan) injection 0.4 mg 0.4 mg, IntraVENous, Every 5 min PRN, opioid reversal, respiratory depression, Starting on Wed09/03/23 at 1409, +++ For RR <10, pinpoint pupils, over sedation for opioid reversal - MUST notify construction plumber provider immediately after first dose, may give IM or SQ if no IV access +++ ondansetron (Zofran) injection 4 mg(Linked Group 3) 4 mg, IntraVENous, Every 6 hours PRN, nausea, vomiting, Starting on Wed09/03/23 at 1403, Phase II/On Unit, 1st Line. Give IV if patient is unable to take orally. If inadequate response within 60 minutes, proceed to next-line agent or contact provider if no further options ordered. 1813 (Given - Provider: Kyara Gaines RN) 0055 (See Alternative - Provider: Quang Cehng RN) ondansetron (Zofran) injection 4 mg (COMPLETED) 4 mg, IntraVENous, Once PRN, nausea, Starting on Wed09/03/23 at 1200, For 1 dose, Recovery (only), Initial antiemetic therapy. 1208 (Given - Provider: Dacia Barrett RN) ondansetron ODT (Zofran-ODT) disintegrating tablet 4 mg(Linked Group 3) 4 mg, Oral, Every 8 hours PRN, nausea, vomiting, Starting on Wed09/03/23 at 1403, Phase II/On Unit, 1st Line. If inadequate response within 60 minutes, proceed to next-line agent or contact provider if no further options ordered. Patient should allow tablet to dissolve on tongue. Do not remove from blister pack until just before administering. 1813 (See Alternative - Provider: Kyara Gaines RN) 0055 (Given - Provider: Quang Cheng RN) oxyCODONE (Roxicodone) immediate release tablet 10 mg(Linked Group 4) 10 mg, Oral, Every 4 hours PRN, severe pain (7-10), Starting on Wed09/03/23 at 1403, Phase II/On Unit 1427 (Given - Provider: Kyara Gaines RN)2136 (Given - Provider: Quang Cheng, NEYMAR) 0739 (Given - Provider: Anna Noble, NEYMAR) oxyCODONE (Roxicodone) immediate release tablet 5 mg(Linked Group 4) 5 mg, Oral, Every 4 hours PRN, moderate pain (4-6), Starting on Wed09/03/23 at 1403, Phase II/On Unit 1427 (See Alternative - Provider: Kyara Gaines RN)2136 (See Alternative - Provider: Quang Cheng RN) 0739 (See Alternative - Provider: Anna Noble, NEYMAR) promethazine (Phenergan) tablet 12.5 mg 12.5 mg, Oral, Every 6 hours PRN, nausea, vomiting, as second line agent, Starting on Wed09/03/23 at 2156 2248 (Given - Provider: Quang Cheng RN) 0739 (Given - Provider: Anna Noble, NEYMAR) sterile water irrigation solution (CANCELED) As needed, Starting on Wed09/03/23 at 1013, Intraprocedure 1013 (Given - Provider: Melvin Posey MD - Comment: MARYSOL CRUZ) Linked Groups Order Group 1: famotidine (Pepcid) tablet 20 mg (COMPLETED)Jump to med 20 mg, Oral, Once, On Wed09/03/23 at 0945, For 1 dose, Preprocedure, IV or ORAL Or famotidine (Pepcid) 20 mg in sodium chloride (PF) 0.9 % 10 mL injection (COMPLETED) 20 mg, IntraVENous, Administer over 2 Minutes, Once, On Wed09/03/23 at 0945, For 1 dose, Preprocedure, IV or ORAL Group 2: HYDROmorphone (Dilaudid) injection 0.25 mgJump to med 0.25 mg, IntraVENous, Every 3 hours PRN, moderate pain (4-6), Starting on Wed09/03/23 at 1403, Phase II/On Unit, If oral and IV narcotics ordered, use oral first and only use IV if oral is ineffective or cannot take oral. Do Not give oral and IV within 1 hour of each other unless specifically ordered. Or HYDROmorphone (Dilaudid) injection 0.5 mgJump to med 0.5 mg, IntraVENous, Every 3 hours PRN, severe pain (7-10), Starting on Wed09/03/23 at 1403, Phase II/On Unit, If oral and IV narcotics ordered, use oral first and only use IV if oral is ineffective or cannot take oral. Do Not give oral and IV within 1 hour of each other unless specifically ordered. Group 3: ondansetron ODT (Zofran-ODT) disintegrating tablet 4 mgJump to med 4 mg, Oral, Every 8 hours PRN, nausea, vomiting, Starting on Wed09/03/23 at 1403, Phase II/On Unit, 1st Line. If inadequate response within 60 minutes, proceed to next-line agent or contact provider if no further options ordered. Patient should allow tablet to dissolve on tongue. Do not remove from blister pack until just before administering. Or ondansetron (Zofran) injection 4 mgJump to med 4 mg, IntraVENous, Every 6 hours PRN, nausea, vomiting, Starting on Wed09/03/23 at 1403, Phase II/On Unit, 1st Line. Give IV if patient is unable to take orally. If inadequate response within 60 minutes, proceed to next-line agent or contact provider if no further options ordered. Group 4: oxyCODONE (Roxicodone) immediate release tablet 5 mgJump to med 5 mg, Oral, Every 4 hours PRN, moderate pain (4-6), Starting on Wed09/03/23 at 1403, Phase II/On Unit Or oxyCODONE (Roxicodone) immediate release tablet 10 mgJump to med 10 mg, Oral, Every 4 hours PRN, severe pain (7-10), Starting on Wed09/03/23 at 1403, Phase II/On Unit Scheduled Medication Order 07/04/2022 07/05/2022 07/06/2022 ondansetron (Zofran) injection 4 mg (COMPLETED) 4 mg, IntraVENous, Once, On Wed07/06/22 at 1420, For 1 dose 1553 (Given - Provid er: Jerrica Bell) promethazine (Phenergan) injection 25 mg (COMPLETED) 25 mg, IntraMUSCular, Once, On Wed07/06/22 at 1515, For 1 dose, Only to be given as IM injection. 1533 (Given - Provid er: Renee Bearden RN) sodium chloride 0.9 % bolus 1,000 mL (COMPLETED) 1,000 mL, IntraVENous, at 1,000 mL/hr, Administer over 1 Hours, Once, On Wed07/06/22 at 1420, For 1 dose 1555 (New Bag - Prov ider: Jerrica Bell)1655 (Stopped - Provider: Renee Bearden RN) FOR RECORDS PERTAINING TO PATIENTS WHO ARE OR HAVE BEEN ENROLLED IN A CHEMICAL DEPENDENCY/SUBSTANCEABUSE PROGRAM, SOME INFORMATION MAY BE OMITTED. This clinical summary was aggregated from multiple sources. Caution should be exercised in using it in the provision of clinical care. This summary normalizes information from multiple sources, and as a consequence, information in this document may materially change the coding, format and clinical context of patient data. In addition, data may be omitted in some cases. CLINICAL DECISIONS SHOULD BE BASED ON THE PRIMARY CLINICAL RECORDS. [employer] provides no warranty or guarantee of the accuracy or completeness of information in this document.
--- OUTSIDE RECORDS SUMMARY | 2024-10-23 06:52 | XMS RPT_ITS | CCD ---
Author Organization [facility] CliniSytn Care Team Providers Care Clerical Manager Name Role Phone REHMUS, MIKAYLA H Unavailable [...] [place] Unavailable Unavailable Nur, Gordon Fernandez Unavailable Gordon Nur Primary Care Provider [phone] Gordon Nur Sr. Unavailable [phone] Nunu Cortez MD Primary Care Provider Jeff Purvis MD Unavailable Nunu Cortez MD Primary Care Provider Jeff Purvis MD Unavailable Nunu Cortez MD Primary Care Provider NO PRIMARY CARE, Primary Care Unavailable JARVIS CASAS Attending Unavailable REFERRED, SELF Referring Unavailable Bakari Silva MD Unavailable Jeff Purvis MD Unavailable Bakari Silva MD Unavailable Melvin Posey Unavailable Nunu Cortez MD Primary Care Provider MELVIN POSEY Attending Unavailable MELVIN POSEY Admitting Unavailable CORTEZ, NUNU Primary Care Unavailable CORTEZ, NUNU Primary Care Unavailable FORESTER, MARIO Attending Unavailable FORESTER, MARIO Referring Unavailable OCRTEZ, NUNU Primary Care Unavailable FORESTER, MARIO Attending [...] NUNU N Primary Care Unavailable Cortez Dr. [place] Nunu Primary Care Provider Dr. Alonzo Argueta DO Attending Provider Dr. Alonzo Argueta DO Emergency Provider Dr. Tom Garcia DO Referring Provider [phone] Dr. Tom Garcia DO Emergency Provider Tom [...] [HYDROCODONE-ACET AMINOPHEN] Drug Allergy 3 Unknown, Itching [facility] Rep[facility] (20 sources) aspirin; Translations: [ASPIRIN] Drug Allergy 2 Other: See Comments, Other [facility] (20 sources) NSAIDs; Translations: [NSAIDS (NON-STEROIDAL ANTI-INFLAMMATORY DRUG)] Propensity to adverse reactions (disorder) 3 Other: See Comments [facility] (20 sources) Ibuprofen; Translations: [IBUPROFEN] Drug Allergy 2 Other, Unknown, Other: See Comments [facility] (20 sources) Non-steroidal anti-inflammatory agent; Translations: [NSAIDS] Drug Allergy [address] [facility] (20 sources) Aluminum aspirin; Translations: [ALUMINUM ASPIRIN] Drug Allergy 2 Other: See Comments [facility] (20 sources) Dicyclomine; Translations: [DICYCLOMINE] Drug Allergy 4 Palpitations, Other: See Comments [facility] (20 sources) Naproxen Drug Allergy 1 Bleeding [facility] (7 sources) HYDROcodone Drug Allergy [address] [facility] (1 source) Acetaminophen Drug Allergy 5 [facility] Repository (1 source) Dicyclomine Drug Allergy 5 [facility] Repository (1 source) HYDROcodone Drug Allergy 5 [facility] Repository (1 source) Ibuprofen Drug Allergy 5 [facility] Repository (1 source) Naproxen Drug Allergy 5 [facility] Repository Medications Current Medications Medication Drug Class(es) [...] mouth every 6 hours as needed (bleeding). [id number] 200 actuat albuterol 0.09 mg/actuat metered dose [...] tongue every 4 hours as needed. levonorgestrel 0.091385 mg/hr intrauterine system (3 sources) Progestin, Progestin-containing [...] Comment on above: Take 1 capsule by [facility] once daily. promethazine hydrochloride 12.5 mg [...] on above: Take 2 tablets by mo [facility] every 8 hours for 3 days, THEN [...] 2024 3:22pm take 1 capsule by mo [facility] every twenty-four hours venlafaxine ER (EFFEXOR XR) [...] Reference Range Facility /YUMIon 10-20-2024 MR/PAT[facility] [place] [facility] [address] [place] [address] PAT - Anesthesia 10/20/24 1355 MR#: [id number] Acct: [id number] Name: JERRICA SUGGS Rep #: [id number] : 1995 29 From: Kwame Donaldson MD PCP: Dr. 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 Hx Hospitalization No 10/20/24 10:36 Any Problems [...] take am of surgery PONV PONV - architectural inspector: PONV - architectural inspector Female Yes 10/20/24 10:36 HX of Motion [...] 08/31/24 13:36 Respiratory Assessment Respiratory Assessment - architectural inspector: Respiratory Tract Infection Hx - architectural inspector Hx Respiratory Tract Infection No 10/20/24 10:36 STOP Sleep Apnea STOP Sleep Apnea - architectural inspector: STOP Sleep Apnea - architectural inspector Hx Hypertension No 10/20/24 10:36 Hx Sleep [...] Tobacco Use History Tobacco Use History - architectural inspector: Tobacco Use History - architectural inspector Tobacco Use Smoking Status Former smoker 10/20/24 10:36 Hx Tobacco Use No 10/20/24 10:36 Years Smoking Packs Smoked per Day Smoking Cessation Date was Yes - quit smoking within 15 10/20/24 10:36 within the last 15 years years Hx Smoking Cessation Date 04/26/21 10/20/24 10:36 Hx Smoking Cessation No 10/20/24 10:36 Counseling Hematologic Medial History Hematologic Hx - architectural inspector: Hematologic 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 Normal [facility] CNCOon 09-26-2024 CNCO Letter Text Normal [facility] CNPNon 09-26-2024 CNPN Telephone (HEMAPOB) JERRICA SUGGS ([id number]) 1995 F Date Time Provider Department 09/26/24 [...] 12:41 PM Signed Letter posted to patients [facility] [place], patient made aware. NEYMAR Randle Kristine 10/03/2024 11:49 AM Signed Received faxed clearance for scheduled 10/23/2024 colonoscopy with MAC sedation at [facility]. Allergies As of Date: 09/26/2024 Noted [...] Date Reviewed: 04/10/2024 Reviewed by: Dmitry Galvan APRN.[employer]IR [employer] W[employer] FILLER - Fully Assessed Order(s):aminocaproic acid (AMICAR) 250 [...] Status:Closed by BAKARI SILVA on 09/26/24 Normal [facility] CBC (INCLUDES DIFF/PLT)on Basophils (Bld) [#/Vol] 0.052 10*3/uL Normal 0-200 [facility] Comment on above: Performed By: #### 6 399, 73032 #### [facility] [place] [address] Radio Division Officer: Rafael Lundberg MD Basophils/100 WBC (Bld) 0.6 % Normal [facility] Comment on above: Performed By: #### 6 399, 24723 #### [facility] [place] [address] Radio Division Officer: Rafael Lundberg MD Eosinophils (Bld) [#/Vol] 0.461 10*3/uL Normal 15-500 [facility] Comment on above: Performed By: #### 6 399, 20989 #### [facility] [place] [address] Radio Division Officer: Rafael Lundberg MD Eosinophils/100 WBC (Bld) 5.3 % Normal [facility] Comment on above: Performed By: #### 6 399, 27925 #### [facility] [place] [address] Radio Division Officer: Rafael Lundberg MD Erythrocyte distribution width (RBC) [Ratio] 12.8 % Normal 11.0-15.0 [facility] Comment on above: Performed By: #### 6 399, 30984 #### [facility] of [address], [address] [place] [address] Radio Division Officer: Rafael Lundberg MD Hematocrit (Bld) [Volume fraction] 44.3 % Normal 35.0-45.0 [facility] Comment on above: Performed By: #### 6 399, 80244 #### [facility] of [address], [address] [place] [address] Radio Division Officer: Rafael Lundberg MD Hemoglobin (Bld) [Mass/Vol] 14.6 g/dL Normal 11.7-15.5 [facility] Comment on above: Performed By: #### 6 399, 54836 #### [facility] of [address], [address] [place] [address] Radio Division Officer: Rafael Lundberg MD Lymphocytes (Bld) [#/Vol] 2.488 10*3/uL Normal 850-3900 [facility] Comment on above: Performed By: #### 6 399, 92305 #### [facility] of [address], [address] [place] [address] Radio Division Officer: Rafael Lundberg MD Lymphocytes/100 WBC (Bld) 28.6 % Normal [facility] Comment on above: Performed By: #### 6 399, 12796 #### [facility] of [address], [address] [place] [address] Radio Division Officer: Rafael Lundberg MD MCH (RBC) [Entitic mass] 30.6 pg Normal 27.0-33.0 [facility] Comment on above: Performed By: #### 6 399, 45865 #### [facility] of [place] [address] Radio Division Officer: Rafael Lundberg MD MCHC (RBC) [Mass/Vol] 33.0 [...] clinical condition. Performed By: #### 6 399, 44003 #### [facility] of [place] [address] Radio Division Officer: Rafael Lundberg MD MCV (RBC) [Entitic vol] 92.9 fL Normal 80.0-100.0 [facility] Comment on above: Performed By: #### 6 399, 67890 #### [facility] of [address], [address] [place] [address] Radio Division Officer: Rafael Lundberg MD Monocytes (Bld) [#/Vol] 0.609 10*3/uL Normal 200-950 [facility] Comment on above: Performed By: #### 6 399, 15554 #### [facility] of [place] [address] Radio Division Officer: Rafael Lundberg MD Monocytes/100 WBC (Bld) 7.0 % Normal [facility] Comment on above: Performed By: #### 6 399, 87827 #### [facility] of [place] [address] Radio Division Officer: Rafael Lundberg MD Neutrophils (Bld) [#/Vol] 5.09 10*3/uL Normal 2020-7086 [facility] Comment on above: Performed By: #### 6 399, 50167 #### [facility] of [place] [address] Radio Division Officer: Rafael Lundberg MD Neutrophils/100 WBC (Bld) 58.5 % Normal [facility] Comment on above: Performed By: #### 6 399, 97377 #### [facility] of [place] [address] Radio Division Officer: Rafael Ludnberg MD Platelet mean volume (Bld) [Entitic vol] 10.9 fL Normal 7.5-12.5 [facility] Comment on above: Performed By: #### 6 399, 55633 #### [facility] of [address] [place] [address] Radio Division Officer: Rafael Lundberg MD Platelets (Bld) [#/Vol] 270 10*3/uL Normal 140-400 [facility] Comment on above: Performed By: #### 6 399, 11947 #### [facility] of [address], [address] [place] [address] Radio Division Officer: Rafael Lundberg MD RBC (Bld) [#/Vol] 4.77 10*6/uL Normal 3.80-5.10 [facility] Comment on above: Performed By: #### 6 399, 20038 #### [facility] of [address], [address] [place] [address] Radio Division Officer: Rafael Lundberg MD WBC (Bld) [#/Vol] 8.7 10*3/uL Normal 3.8-10.8 [facility] Comment on above: Performed By: #### 6 399, 04583 #### [facility] of [address], [address] [place] [address] Radio Division Officer: Rafael Lundberg MD [facility] METABOLIC [facility] 09-16-2024 ALBUMIN Normal [facility] Comment on above: Order Comment: 0; 0; 0 FASTING:NO FASTING: NO Performed By: #### 6 399, 96108 #### [facility] of [address], [address] [place] [address] Radio Division Officer: Rafael Lundberg MD ALBUMIN/GLOBULIN RATIO Normal [facility] Comment on above: Order Comment: 0; 0; 0 FASTING:NO FASTING: NO Performed By: #### 6 399, 26867 #### [facility] of [address], [address] [place] [address] Radio Division Officer: Rafael Lundberg MD ALKALINE PHOSPHATASE Normal [facility] Comment on above: Order Comment: 0; 0; 0 FASTING:NO FASTING: NO Performed By: #### 6 399, 88237 #### [facility] of [place] [address] Radio Division Officer: Rafael Lundberg MD ALT Normal [facility] Comment on above: Order Comment: 0; 0; 0 FASTING:NO FASTING: NO Performed By: #### 6 399, 83216 #### [facility] of [place] [address] Radio Division Officer: Rafael Lundberg MD AST Normal [facility] Comment on above: Order Comment: 0; 0; 0 FASTING:NO FASTING: NO Performed By: #### 6 399, 33952 #### [facility] of [place] [address] Radio Division Officer: Rafael Lundberg MD BILIRUBIN, TOTAL Normal [facility] Comment on above: Order Comment: 0; 0; 0 FASTING:NO FASTING: NO Performed By: #### 6 399, 03072 #### [facility] of [place] [address] Radio Division Officer: Rafael Lundberg MD BUN/CREATININE RATIO Normal [facility] Comment on above: Order Comment: 0; 0; 0 FASTING:NO FASTING: NO Performed By: #### 6 399, 87397 #### [facility] of [address], [address] [place] [address] Radio Division Officer: Rafael Lundberg MD CALCIUM Normal [facility] Comment on above: Order Comment: 0; 0; 0 FASTING:NO FASTING: NO Performed By: #### 6 399, 52194 #### [facility] of [place] [address] Radio Division Officer: Rafael Lundberg MD CARBON DIOXIDE Normal [facility] Comment on above: Order Comment: 0; 0; 0 FASTING:NO FASTING: NO Performed By: #### 6 399, 96437 #### [facility] of [place] [address] Radio Division Officer: Rafael Lundberg MD CHLORIDE Normal [facility] Comment on above: Order Comment: 0; 0; 0 FASTING:NO FASTING: NO Performed By: #### 6 399, 61414 #### [facility] of [address], [address] [place] [address] Radio Division Officer: Rafael Lundberg MD CREATININE Normal [facility] Comment on above: Order Comment: 0; 0; 0 FASTING:NO FASTING: NO Performed By: #### 6 399, 68654 #### [facility] of [address], [address] [place] [address] Radio Division Officer: Rafael Lundberg MD EGFR Normal [facility] Comment on above: Order Comment: 0; 0; 0 FASTING:NO FASTING: NO Performed By: #### 6 399, 58044 #### [facility] of [address], [address] [place] [address] Radio Division Officer: Rafael Lundberg MD GLOBULIN Normal [facility] Comment on above: Order Comment: 0; 0; 0 FASTING:NO FASTING: NO Performed By: #### 6 399, 44488 #### [facility] of [address], [address] [place] [address] Radio Division Officer: Rafael Lundberg MD GLUCOSE Normal [facility] Comment on above: Order Comment: 0; 0; 0 FASTING:NO FASTING: NO Performed By: #### 6 399, 40738 #### [facility] of [address], [address] [place] [address] Radio Division Officer: Rafael Lundberg MD POTASSIUM Normal [facility] Comment on above: Order Comment: 0; 0; 0 FASTING:NO FASTING: NO Performed By: #### 6 399, 82751 #### [facility] of [address], [address] [place] [address] Radio Division Officer: Rafael Lundberg MD PROTEIN, TOTAL Normal [facility] Comment on above: Order Comment: 0; 0; 0 FASTING:NO FASTING: NO Performed By: #### 6 399, 96468 #### [facility] of [address], [address] [place] [address] Radio Division Officer: Rafael Lundberg MD SODIUM Normal [facility] Comment on above: Order Comment: 0; 0; 0 FASTING:NO FASTING: NO Performed By: #### 6 399, 29631 #### [facility] of [address], [address] [place] [address] Radio Division Officer: Rafael Lundberg MD UREA NITROGEN (BUN) Normal [facility] Comment on above: Order Comment: 0; 0; 0 FASTING:NO FASTING: NO Performed By: #### 6 399, 20277 #### [facility] [address] [place] [address], [address] Radio Division Officer: Rafael Lundberg MD LIPASEon 09-16-2024 LIPASE Normal [facility] Comment on above: Performed By: #### 6 399, 20225 #### [facility] [address], [address] [place] [address] Radio Division Officer: Rafael Lundberg MD Gastroenterology Visit Repor [facility] 09-04-2024 Gastroenterology Visit Report [facility] [address] [place] [address] OFFICE VISIT Date of Service: 09/04/24 MR#: [id number] Acct: [id number] Name: JERRICA SUGGS Rep #: [id number] : 1995 Provider: SANDRA delarosa Age/Sex: 29/F [place] [facility] [place] Status: Signed Intake Vital Signs 08/31/24 13:36 [...] type I. She did speak with her simulation specialist who told her to take DDAVP which [...] mid pancreatic body - she is in [employer] school - Wednesday when at school she had BRB - left school and called simulation specialist took DDAVP - reports her stomach has [...] only thi (more content not included)... Normal [facility] Abdomen/Pelvis W IV Cont ONL Yon 08-31-2024 Abdomen/Pelvis W IV Cont ONLY [facility] Imaging Services [address] [place], [place] [id number] Abdomen/Pelvis W IV Cont ONLY MR#: [id number] Acct: [id number] Name: JERRICA SUGGS Rep #: [id number] : 1995 F 29 From: Quincy hernandez MD PCP: Dr. Nunu Cortez MD Status: REG ER Study: Abdomen/Pelvis W IV Cont ONLY Date of Exam: Exam# [id number] Ordering Dr: Tom Garcia DO PROCEDURE: ABDOMEN/PELVIS [...] Nunu Cortez MD; Dr. Tom Garcia DO Manager Land: Signed Normal [facility] Absolute lymphocyte countOrd ered By: ED PROVIDER on 08-31-2024 Lymphocytes Auto (Unsp spec) [#/Vol] 3.11 10*3/uL 0.83-4.51 [facility] Absolute neutrophil countOrd ered By: ED PROVIDER on 08-31-2024 Neutrophils (Bld) [#/Vol] 5.7 10*3/uL 2.0-7.7 [facility] Anion gap in Serum or Plasma Ordered By: ED PROVIDER on 08-31-2024 Anion gap [Moles/Vol] 11 mmol/L 5-15 [facility] Automated lymphocyte count a s percentage of total leukocytesOrdered By: ED PROVIDER on 08-31-2024 Lymphocytes/100 WBC Auto (Unsp spec) 31.1 % 19-41 [facility] BUN/creatinine ratioOrdered By: ED PROVIDER on 08-31-2024 Urea nitrogen/Creatinine [Mass ratio] 9.1 mg/mg Low 10-20 [facility] Basophil percentageOrdered B y: ED PROVIDER on 08-31-2024 Basophils/100 WBC (Bld) 0.7 % 0-1 [facility] Bilirubin, totalOrdered By: ED PROVIDER on 08-31-2024 Bilirubin [Mass/Vol] 0.59 mg/dL 0.00-1.30 [facility] CBC W/Diff, Automatedon Absolute Lymph 3.11 X10 3/uL Normal 0.83-4.51 [facility] Comment on above: Performed By: #### L 100.0100, L501.2450, L500.4050, L700.6800 #### [facility] Laboratory [address] [place], [address] Absolute Neut 5.7 X10 3/uL Normal 2.0-7.7 [facility] Comment on above: Performed By: #### L 100.0100, L501.2450, L500.4050, L700.6800 #### [facility] Laboratory [address] [place], [address] Basophils/100 WBC (Bld) 0.7 % Normal 0-1 [facility] Comment on above: Performed By: #### L 100.0100, L501.2450, L500.4050, L700.6800 #### [facility] Laboratory [address] [place], [address] Eosinophils/100 WBC (Bld) 2.8 % Normal 0-5 [facility] Comment on above: Performed By: #### L 100.0100, L501.2450, L500.4050, L700.6800 #### [facility] Laboratory [address] [place], [address] Erythrocyte distribution width (RBC) [Ratio] 11.8 % Normal 11.6-14.6 [facility] Comment on above: Performed By: #### L 100.0100, L501.2450, L500.4050, L700.6800 #### [facility] Laboratory [address] [place], [address] Hematocrit (Bld) [Volume fraction] 44.4 % Normal 37-47 [facility] Comment on above: Performed By: #### L 100.0100, L501.2450, L500.4050, L700.6800 #### [facility] Laboratory [address] [place], [address] Hemoglobin (Bld) [Mass/Vol] 15.7 g/dL High 12.0-15.0 [facility] Comment on above: Performed By: #### L 100.0100, L501.2450, L500.4050, L700.6800 #### [facility] [address] [place], [address] IG% 0.300 Normal 0.0-0.9 [facility] Comment on above: Result Comment: IG% - Immature Granulocytes (promyelocytes, myelocytes and metamyelocytes) > 1% indicates that a LEFT SHIFT is Present. Performed By: #### L 100.0100, L501.2450, L500.4050, L700.6800 #### [facility] [address] [place], [address] Lymphocytes/100 WBC (Bld) 31.1 % Normal 19-41 [facility] Comment on above: Performed By: #### L 100.0100, L501.2450, L500.4050, L700.6800 #### [facility] [address] [place], [address] MCH (RBC) [Entitic mass] 30.4 pg Normal 27.0-32.0 [facility] Comment on above: Performed By: #### L 100.0100, L501.2450, L500.4050, L700.6800 #### [facility] [address] [place], [address] MCHC (RBC) [Mass/Vol] 35.4 g/dL Normal 32-36 [facility] Comment on above: Performed By: #### L 100.0100, L501.2450, L500.4050, L700.6800 #### [facility] [address] [place], [address] MCV (RBC) [Entitic vol] 86.0 fL Normal 81-99 [facility] Comment on above: Performed By: #### L 100.0100, L501.2450, L500.4050, L700.6800 #### [facility] [address] [place], [address] Monocytes/100 WBC (Bld) 8.3 % Normal 0-10 [facility] Comment on above: Performed By: #### L 100.0100, L501.2450, L500.4050, L700.6800 #### [facility] [address] [place], [address] Neutrophils/100 WBC (Bld) 56.8 % Normal 47-70 [facility] Comment on above: Performed By: #### L 100.0100, L501.2450, L500.4050, L700.6800 #### [facility] [address] [place], [address] Nucleated RBC (Bld) [#/Vol] 0 10*3/uL Normal 0-5 [facility] Comment on above: Performed By: #### L 100.0100, L501.2450, L500.4050, L700.6800 #### [facility] Laboratory [address] [place], [address] Platelet mean volume (Bld) [Entitic vol] 10.5 fL Normal 6.2-12.0 [facility] Comment on above: Performed By: #### L 100.0100, L501.2450, L500.4050, L700.6800 #### [facility] [address] [place], [address] Platelets (Bld) [#/Vol] 260 10*3/uL Normal 150-450 [facility] Comment on above: Performed By: #### L 100.0100, L501.2450, L500.4050, L700.6800 #### [facility] [address] [place], [address] RBC (Bld) [#/Vol] 5.16 10*6/uL Normal 4.2-5.4 [facility] Comment on above: Performed By: #### L 100.0100, L501.2450, L500.4050, L700.6800 #### [facility] [address] [place], [address] RDW SD 37.3 fl Normal 35.1-43.9 [facility] Comment on above: Performed By: #### L 100.0100, L501.2450, L500.4050, L700.6800 #### [facility] [address] [place], [address] WBC (Bld) [#/Vol] 10.0 10*3/uL Normal 4.4-11.0 [facility] Comment on above: Performed By: #### L 100.0100, L501.2450, L500.4050, L700.6800 #### [facility] [address] [place], [address] Carbon dioxide, total [Moles /volume] in Central venous bloodOrdered By: ED PROVIDER on 08-31-2024 CO2 [Moles/Vol] 26.4 mmol/L 21.0-32.0 [facility] Chloride assayOrdered By: ED PROVIDER on 08-31-2024 Chloride [Moles/Vol] 101 mmol/L 98-108 [facility] Comprehensive Metabolic Prof ilon 08-31-2024 Albumin [Mass/Vol] 4.6 g/dL Normal 3.5-5.0 [facility] Comment on above: Performed By: #### M 100.637, M100.96 #### [facility] [address] [place], [address] Albumin/Globulin [Mass ratio] 1.4 {ratio} Normal 0.9-2.4 [facility] Comment on above: Performed By: #### M 100.637, M1.96 #### [facility] [address] [place], [address] ALK PHOS 68 U/L Normal 35-104 [facility] Comment on above: Performed By: #### M 100.637, M100.96 #### [facility] [address] [place], [address] ALT [Catalytic activity/Vol] 18 U/L Normal <=34 [facility] Comment on above: Performed By: #### M 100.637, M100.96 #### [facility] [address] [place], [address] AST [Catalytic activity/Vol] 24 U/L Normal <=31 [facility] Comment on above: Performed By: #### M 100.637, M100.6796 #### [facility] [address] [place], [address] Bilirubin [Mass/Vol] 0.59 mg/dL Normal 0.00-1.30 [facility] Comment on above: Performed By: #### M 100.637, M100.96 #### [facility] [address] [place], [address] BUN/CRE 9.1 RATIO Low 10-20 [facility] Comment on above: Performed By: #### M 100.637, M1.96 #### [facility] [address] [place], [address] Calcium [Mass/Vol] 9.2 mg/dL Normal 7.6-11.0 [facility] Comment on above: Performed By: #### M 100.637, M1.96 #### [facility] [address] [place], [address] Chloride [Moles/Vol] 101 mmol/L Normal 98-108 [facility] Comment on above: Performed By: #### M 100.637, M1.96 #### [facility] [address] [place], [address] CO2 [Moles/Vol] 26.4 mmol/L Normal 21.0-32.0 [facility] Comment on above: Performed By: #### M 100.637, M1.96 #### [facility] [address] [place], [address] Creatinine [Mass/Vol] 0.72 mg/dL Normal 0.70-1.20 [facility] Comment on above: Performed By: #### M 100.637, M1.96 #### [facility] [address] [place], [address] ECRCL 113.18 ml/min Normal 50-250 [facility] Comment on above: Performed By: #### M 100.637, M1.96 #### [facility] [address] [place], [address] GAP 11 Normal 5-15 [facility] Comment on above: Performed By: #### M 100.637, M1.96 #### [facility] [address] [place], [address] GFR/1.73 sq M.predicted among non-blacks MDRD (S/P/Bld) [Vol rate/Area] 117 mL/min/{1.73_m2} Normal >60 [facility] Comment on above: Result Comment: mL/m in/1.73m2 CKD-EPI Creatinine Equation (2020) Performed By: #### M 100.637, M1.96 #### [facility] [address] [place], [address] Globulin (S) [Mass/Vol] 3.3 g/dL Normal 2.2-4.2 [facility] Comment on above: Performed By: #### M 100.637, .96 #### [facility] [address] [place], [address] Glucose [Mass/Vol] 80 mg/dL Normal 70-99 [facility] Comment on above: Performed By: #### M 100.637, M1.96 #### [facility] [address] [place], [address] Potassium [Moles/Vol] 3.4 mmol/L Normal 3.3-5.1 [facility] Comment on above: Performed By: #### M 100.637, M1.96 #### [facility] [address] [place], [address] Sodium [Moles/Vol] 138 mmol/L Normal 133-145 [facility] Comment on above: Performed By: #### M 100.637, M1.96 #### [facility] [address] [place], [address] T PROT 7.9 g/dL Normal 5.9-8.4 [facility] Comment on above: Performed By: #### M 100.637, M100.6796 #### [facility] [address] [place], [address] Urea nitrogen [Mass/Vol] 7 mg/dL Normal 4-19 [facility] Comment on above: Performed By: #### M 100.637, M100.6796 #### [facility] [address] [place], [address] Emergency Department Summary on 08-31-2024 Emergency Department Summary [facility] Medical Records Department [address] [place] [address] Emergency Department Summary 08/31/24 MR#: [id number] Acct: [id number] Name: JERRICA SUGGS Rep #: [id number] : 1995 29 From: Tom Garcia DO [...] Willebrand's disease type I. She called her simulation specialist 2 days ago who told her to [...] She has had no nausea or vomiting. [facility] Medical History IBS (irritable bowel syndrome) Von [...] 98.7 F (more content not included)... Normal [facility] Eosinophil percentageOrdered By: ED PROVIDER on 08-31-2024 Eosinophils/100 WBC (Bld) 2.8 % 0-5 [facility] Erythrocyte distribution wid th ratioOrdered By: ED PROVIDER on 08-31-2024 Erythrocyte distribution width (RBC) [Ratio] 11.8 % 11.6-14.6 [facility] Erythrocyte distribution wid th standard deviationOrdered By: ED PROVIDER on 08-31-2024 Erythrocyte distribution width (RBC) [Ratio] 37.3 fl 35.1-43.9 [facility] Glomerular filtration rate ( GFR) estimation/1.73 sq m using serum, plasma, or whole bOrdered By: ED PROVIDER on 08-31-2024 GFR/1.73 sq M.predicted among non-blacks MDRD (S/P/Bld) [Vol rate/Area] 117 mL/min/{1.73_m2} >60 [facility] Comment on above: mL/min/1.73m2 CKD-EP I Creatinine Equation (2020) Hematocrit Auto (Bld) [Volum e fraction]Ordered By: ED PROVIDER on 08-31-2024 Hematocrit (Bld) [Volume fraction] 44.4 % 37-47 [facility] Hemoglobin measurementOrdere d By: ED PROVIDER on 08-31-2024 Hemoglobin (Bld) [Mass/Vol] 15.7 g/dL High 12.0-15.0 [facility] Immature granulocytes/100 WB C Auto (Bld)Ordered By: ED PROVIDER on 08-31-2024 Immature granulocytes/100 WBC (Bld) 0.300 % 0.0-0.9 [facility] Comment on above: IG% - Immature Granu locytes (promyelocytes, myelocytes and metamyelocytes) > 1% indicates that a LEFT SHIFT is Present. Laboratory - Chemistry and C hemistry - challengeOrdered By: ED PROVIDER on 08-31-2024 AST [Catalytic activity/Vol] 24 U/L <32 [facility] Lactic acid measurementOrder ed By: Tom Garcia on 08-31-2024 Lactate [Moles/Vol] mmol/L Normal 0.0-2.0 [facility] Comment on above: Order Comment: Y Performed By: #### L 503.6005 #### [facility] [address] [place], [address] Lipaseon 08-31-2024 Lipase [Catalytic activity/Vol] 253 U/L High 13-75 [facility] Comment on above: Result Comment: Lorraine marmolejo note: LIPASE revised reference range effective 22. New Lipase methodology. Expected to produce lower values than the previous assay method. NEW Reference Range: 13 - 75 U/L Performed By: #### M 100.637, M100.6796 #### [facility] [address] [place], [place], [address] Lipase measurementOrdered By : ED PROVIDER on 08-31-2024 Lipase [Catalytic activity/Vol] 253 U/L High 13-75 [facility] Comment on above: Please note:LIPASE r evised reference range effective 22. New Lipase methodology. Expected to produce lower values than the previous assay method. NEW Reference Range: 13 - 75 U/L MCV (mean corpuscular volume ) determinationOrdered By: ED PROVIDER on 08-31-2024 MCV (RBC) [Entitic vol] 86.0 fL 81-99 [facility] Mean corpuscular hemoglobin (MCH) determinationOrdered By: ED PROVIDER on 08-31-2024 MCH (RBC) [Entitic mass] 30.4 pg 27.0-32.0 [facility] Mean corpuscular hemoglobin concentration (MCHC) determinationOrdered By: ED PROVIDER on 08-31-2024 MCHC (RBC) [Mass/Vol] 35.4 g/dL 32-36 [facility] Mean platelet volume determi nationOrdered By: ED PROVIDER on 08-31-2024 Platelet mean volume (Bld) [Entitic vol] 10.5 fL 6.2-12.0 [facility] Monocyte percentageOrdered B y: ED PROVIDER on 08-31-2024 Monocytes/100 WBC (Bld) 8.3 % 0-10 [facility] Neutrophil percentageOrdered By: ED PROVIDER on 08-31-2024 Neutrophils/100 WBC (Bld) 56.8 % 47-70 [facility] Nucleated red blood cell per centageOrdered By: ED PROVIDER on 08-31-2024 Nucleated RBC/100 WBC (Bld) [Ratio] 0 % 0-5 [facility] Platelet countOrdered By: ED PROVIDER on 08-31-2024 Platelets (Bld) [#/Vol] 260 10*3/uL 150-450 [facility] Potassium measurement (mass/ volume)Ordered By: ED PROVIDER on 08-31-2024 Potassium (Unsp spec) [Mass/Vol] 3.4 mmol/L 3.3-5.1 [facility] ,Serum,hCG Quali.on 08-31-2024 HCG, SERUM QUAL Negative Normal [facility] Comment on above: Performed By: #### L 100.0100, L501.2450, L500.4050, L700.6800 #### [facility] [place] [address], [address] RBC Auto (Bld) [#/Vol]Ordere d By: ED PROVIDER on 08-31-2024 RBC (Bld) [#/Vol] 5.16 10*6/uL 4.2-5.4 [facility] Serum beta-hCG test, qualita tiveOrdered By: ED PROVIDER on 08-31-2024 Beta HCG ( test) Ql Negative [facility] Serum creatinine measurement (mass/volume)Ordered By: ED PROVIDER on 08-31-2024 Creatinine [Mass/Vol] 0.72 mg/dL 0.70-1.20 [facility] Serum globulin measurementOr dered By: ED PROVIDER on 08-31-2024 Globulin (S) [Mass/Vol] 3.3 g/dL 2.2-4.2 [facility] Serum glucose measurement (m ass/volume)Ordered By: ED PROVIDER on 08-31-2024 Glucose [Mass/Vol] 80 mg/dL 70-99 [facility] Serum or plasma alanine gtz otransferase (ALT) measurementOrdered By: ED PROVIDER on 08-31-2024 ALT [Catalytic activity/Vol] 18 U/L <35 [facility] Serum or plasma albumin eran urement (mass/volume)Ordered By: ED PROVIDER on 08-31-2024 Albumin [Mass/Vol] 4.6 g/dL 3.5-5.0 [facility] Serum or plasma albumin/glob ulin mass ratioOrdered By: ED PROVIDER on 08-31-2024 Albumin/Globulin [Mass ratio] 1.4 {ratio} 0.9-2.4 [facility] Serum or plasma alkaline demetrius sphatase measurementOrdered By: ED PROVIDER on 08-31-2024 ALP [Catalytic activity/Vol] 68 U/L 35-104 [facility] Serum or plasma calcium eran urement (mass/volume)Ordered By: ED PROVIDER on 08-31-2024 Calcium [Mass/Vol] 9.2 mg/dL 7.6-11.0 [facility] Serum or plasma urea nitroge n measurement (mass/volume)Ordered By: ED PROVIDER on 08-31-2024 Urea nitrogen [Mass/Vol] 7 mg/dL 4-19 [facility] Sodium levelOrdered By: PASCUAL SIMS on 08-31-2024 Sodium [Moles/Vol] 138 mmol/L 133-145 [facility] Total proteinOrdered By: ED PROVIDER on 08-31-2024 Protein [Mass/Vol] 7.9 g/dL 5.9-8.4 [facility] White blood cell (WBC) count Ordered By: ED PROVIDER on 08-31-2024 WBC (Bld) [#/Vol] 10.0 10*3/uL 4.4-11.0 [facility] CNCOon 08-30-2024 CNCO Letter Text Normal [facility] CNPNon 08-30-2024 CNPN Telephone (HEMAPOB) JERRICA SUGGS ([id number]) 1995 F Date Time Provider Department 08/30/24 [...] needs to get blood work done at [facility], faxed lab order fo [phone] NEYMAR Randle Sherry L, PA-C 08/31/2024 10:36 [...] Date Reviewed: 04/10/2024 Reviewed by: Dmitry Galvan APRN.[employer]ER - Fully Assessed Primary Visit Diagnosis:Von Willebrand disease (HCC) [D68.00] Other Visit Diagnosis:Rectal bleeding [K62.5] Order(s):VON WILLEBRAND DX PANEL [SQVWFPN] Order #: [id number] FUTURE Prescriptions as of 08/31/2024 - aminocaproic [...] Take 1 (more content not included)... Normal [facility] CULTURE, URINE, ROUTINEon CULTURE, URINE, ROUTINE SEE NOTE Normal [facility] Comment on above: Order Comment: 0 Result Comment: CULTURE, URINE, ROUTINE Micro Number: [id number] Test Status: Final Specimen Source: Urine, clean catch Specimen Quality: Adequate Result: No Growth Performed By: #### 3 95 #### [facility] [address] [place] [address], [address] [place] [address] Radio Division Officer: Rafael Austin 07-06-2024 TREVN Telephone (AGGASTW) JERRICA SUGGS ([id number]) 1995 F Date Time Provider Department 07/06/24 ESTEBAN SARMIENTO AGGASTRobert During your visit today, we recorded the following information about you: Hiren Mendez 07/06/2024 2:33 PM Signed Called to get pt booked based on referral pt wants near [facility] where lives Hiren Mendez [...] Date Reviewed: 04/10/2024 Reviewed by: Dmitry Galvan APRN.[employer]ER - Fully Assessed Reason for Visit: Appointment [...] Encounter Status:Closed by HIREN MENDEZ on 07/06/24 [facility] CBC W Auto Differential pane l (Bld)on 06-19-2024 Basophils (Bld) [#/Vol] 0.05 10*3/uL [facility] Basophils/100 WBC (Bld) 0.7 % [facility] Differential cell count method Nom (Bld) Auto [facility] Eosinophils (Bld) [#/Vol] 0.66 10*3/uL High [facility] Eosinophils/100 WBC (Bld) 8.8 % [facility] Erythrocyte distribution width (RBC) [Ratio] 11.9 % 11.5 - 15.0 % [facility] Hematocrit (Bld) [Volume fraction] 42.1 % 36.0 - 46.0 % [facility] Hemoglobin (Bld) [Mass/Vol] 14.4 g/dL 11.5 - 15.5 g/dL [facility] Immature granulocytes (Bld) [#/Vol] [facility] Immature granulocytes/100 WBC (Bld) 0.3 % [facility] Interpretation and review of laboratory results Abnormal [facility] Lymphocytes (Bld) [#/Vol] 2.34 10*3/uL [facility] Lymphocytes/100 WBC (Bld) 31 % [facility] MCH (RBC) [Entitic mass] 30 pg 26.0 - 34.0 pg [facility] MCHC (RBC) [Mass/Vol] 34.2 g/dL 30.5 - 36.0 g/dL [facility] MCV (RBC) [Entitic vol] 87.7 fL 80.0 - 100.0 fL [facility] Monocytes (Bld) [#/Vol] 0.6 10*3/uL [facility] Monocytes/100 WBC (Bld) 8 % [facility] Neutrophils (Bld) [#/Vol] 3.87 10*3/uL [facility] Neutrophils/100 WBC (Bld) 51.2 % [facility] Nucleated RBC (Bld) [#/Vol] [facility] Nucleated RBC/100 WBC (Bld) [Ratio] 0 % /100 WBC [facility] Platelet mean volume (Bld) [Entitic vol] 10.4 fL 9.0 - 12.7 fL [facility] Platelets (Bld) [#/Vol] 279 10*3/uL [facility] RBC (Bld) [#/Vol] 4.8 10*6/uL 3.90 - 5.20 m/uL [facility] WBC (Bld) [#/Vol] 7.54 10*3/uL [facility] Basophils (Bld) [#/Vol] 0.05 10*3/uL Normal <0.11 [facility] Comment on above: Order Comment: Speci men Type: BLOOD SPECIMEN Ordering Facility: [facility] Address: [address] [place] [address] Performed By: #### 5 7021-8 #### [facility] CLIA [id number] [address] [place] [address] [place] Basophils/100 WBC (Bld) 0.7 % Normal [facility] Comment on above: Order Comment: Speci men Type: BLOOD SPECIMEN Ordering Facility: [facility] Address: [address] [place] [address] Performed By: #### 5 7021-8 #### [facility] CLIA [id number] [address] [place] [address] [place] Differential cell count method Nom (Bld) Auto Normal [facility] Comment on above: Order Comment: Speci men Type: BLOOD SPECIMEN Ordering Facility: [facility] Address: [address] [place] [address] Performed By: #### 5 7021-8 #### [facility] CLIA [id number] [address] [place] [address] [place] Eosinophils (Bld) [#/Vol] 0.66 10*3/uL High <0.46 [facility] Comment on above: Order Comment: Speci men Type: BLOOD SPECIMEN Ordering Facility: [facility] Address: [address] [place] [address] Performed By: #### 5 7021-8 #### [facility] CLIA [id number] [address] [place] [address] [place] Eosinophils/100 WBC (Bld) 8.8 % Normal [facility] Comment on above: Order Comment: Speci men Type: BLOOD SPECIMEN Ordering Facility: [facility] Address: [address] [place] [address] Performed By: #### 5 7021-8 #### [facility] CLIA [id number] [address] [place] [address] [place] Erythrocyte distribution width (RBC) [Ratio] 11.9 % Normal 11.5-15.0 [facility] Comment on above: Order Comment: Speci men Type: BLOOD SPECIMEN Ordering Facility: [facility] Address: [address] [place] [address] Performed By: #### 5 7021-8 #### [facility] CLIA [id number] [address] [place] [address] [place] Hematocrit (Bld) [Volume fraction] 42.1 % Normal 36.0-46.0 [facility] Comment on above: Order Comment: Speci men Type: BLOOD SPECIMEN Ordering Facility: [facility] Address: [address] [place] [address] Performed By: #### 5 7021-8 #### [facility] CLIA [id number] [address] [place] [address] [place] Hemoglobin (Bld) [Mass/Vol] 14.4 g/dL Normal 11.5-15.5 [facility] Comment on above: Order Comment: Speci men Type: BLOOD SPECIMEN Ordering Facility: [facility] Address: [address] [place] [address] Performed By: #### 5 7021-8 #### [facility] CLIA [id number] [address] [place] [address] [place] Immature granulocytes (Bld) [#/Vol] 10*3/uL Normal <0.10 [facility] Comment on above: Order Comment: Speci men Type: BLOOD SPECIMEN Ordering Facility: [facility] Address: [address] [place] [address] Performed By: #### 5 7021-8 #### [facility] CLIA [id number] [address] [place] [address] [place] Immature granulocytes/100 WBC (Bld) 0.3 % Normal [facility] Comment on above: Order Comment: Speci men Type: BLOOD SPECIMEN Ordering Facility: [facility] Address: [address] [place] [address] Performed By: #### 5 7021-8 #### [facility] CLIA [id number] [address] [place] [address] [place] Lymphocytes (Bld) [#/Vol] 2.34 10*3/uL Normal 1.00-4.00 [facility] Comment on above: Order Comment: Speci men Type: BLOOD SPECIMEN Ordering Facility: [facility] Address: [address] [place] [address] Performed By: #### 5 7021-8 #### [facility] CLIA [id number] [address] [place] [address] [place] Lymphocytes/100 WBC (Bld) 31.0 % Normal [facility] Comment on above: Order Comment: Speci men Type: BLOOD SPECIMEN Ordering Facility: [facility] Address: [address] [place] [address] Performed By: #### 5 7021-8 #### [facility] CLIA [id number] [address] [place] [address] [place] MCH (RBC) [Entitic mass] 30.0 pg Normal 26.0-34.0 [facility] Comment on above: Order Comment: Speci men Type: BLOOD SPECIMEN Ordering Facility: [facility] Address: [address] [place] [address] Performed By: #### 5 7021-8 #### [facility] CLIA [id number] [address] [place] [address] [place] MCHC (RBC) [Mass/Vol] 34.2 g/dL Normal 30.5-36.0 [facility] Comment on above: Order Comment: Speci men Type: BLOOD SPECIMEN Ordering Facility: [facility] Address: [address] [place] [address] Performed By: #### 5 7021-8 #### [facility] CLIA [id number] [address] [place] [address] [place] MCV (RBC) [Entitic vol] 87.7 fL Normal 80.0-100.0 [facility] Comment on above: Order Comment: Speci men Type: BLOOD SPECIMEN Ordering Facility: [facility] Address: [address] [place] [address] Performed By: #### 5 7021-8 #### [facility] CLIA [id number] [address] [place] [address] [place] Monocytes (Bld) [#/Vol] 0.60 10*3/uL Normal <0.87 [facility] Comment on above: Order Comment: Speci men Type: BLOOD SPECIMEN Ordering Facility: [facility] Address: [address] [place] [address] Performed By: #### 5 7021-8 #### [facility] CLIA [id number] [address] [place] [address] [place] Monocytes/100 WBC (Bld) 8.0 % Normal [facility] Comment on above: Order Comment: Speci men Type: BLOOD SPECIMEN Ordering Facility: [facility] Address: [address] [place] [address] Performed By: #### 5 7021-8 #### [facility] CLIA [id number] [address] [place] [address] [place] Neutrophils (Bld) [#/Vol] 3.87 10*3/uL Normal 1.45-7.50 [facility] Comment on above: Order Comment: Speci men Type: BLOOD SPECIMEN Ordering Facility: [facility] Address: [address] [place] [address] Performed By: #### 5 7021-8 #### [facility] CLIA [id number] [address] [place] [address] [place] Neutrophils/100 WBC (Bld) 51.2 % Normal [facility] Comment on above: Order Comment: Speci men Type: BLOOD SPECIMEN Ordering Facility: [facility] Address: [address] [place] [address] Performed By: #### 5 7021-8 #### [facility] CLIA [id number] [address] [place] [address] [place] Nucleated RBC (Bld) [#/Vol] 10*3/uL Normal <0.01 [facility] Comment on above: Order Comment: Speci men Type: BLOOD SPECIMEN Ordering Facility: [facility] Address: [address] [place] [address] Performed By: #### 5 7021-8 #### [facility] CLIA [id number] [address] [place] [address] [place] Nucleated RBC/100 WBC (Bld) [Ratio] 0.0 /100 WBC Normal [facility] Comment on above: Order Comment: Speci men Type: BLOOD SPECIMEN Ordering Facility: [facility] Address: [address] [place] [address] Performed By: #### 5 7021-8 #### [facility] CLIA [id number] [address] [place] [address] [place] Platelet mean volume (Bld) [Entitic vol] 10.4 fL Normal 9.0-12.7 [facility] Comment on above: Order Comment: Speci men Type: BLOOD SPECIMEN Ordering Facility: [facility] Address: [address] [place] [address] Performed By: #### 5 7021-8 #### [facility] CLIA [id number] [address] [place] [address] [place] Platelets (Bld) [#/Vol] 279 10*3/uL Normal 150-400 [facility] Comment on above: Order Comment: Speci men Type: BLOOD SPECIMEN Ordering Facility: [facility] Address: [address] [place] [address] Performed By: #### 5 7021-8 #### [facility] CLIA [id number] [address] [place] [address] [place] RBC (Bld) [#/Vol] 4.80 10*6/uL Normal 3.90-5.20 [facility] Comment on above: Order Comment: Speci men Type: BLOOD SPECIMEN Ordering Facility: [facility] Address: [address] [place] [address] Performed By: #### 5 7021-8 #### [facility] CLIA [id number] [address] [place] [address] [place] WBC (Bld) [#/Vol] 7.54 10*3/uL Normal 3.70-11.00 [facility] Comment on above: Order Comment: Speci men Type: BLOOD SPECIMEN Ordering Facility: [facility] Address: [address] [place] [address] Performed By: #### 5 7021-8 #### [facility] CLIA [id number] [address] [place] [address] [place] CNCOon 06-19-2024 CNCO Letter Text Normal [facility] CNPNon 06-19-2024 CNPN Telephone (HEMAGRE) JERRICA SUGGS ([id number]) 1995 F Date Time Provider Department 06/19/24 [...] will be back to the group at [facility]- is she able to call them also to expedite (a follow-up appointment may be easier to obtain than a new referral)? Bushra Zamora RN 06/22/2024 8:34 AM Addendum She started with the rectal bleeding last Wednesday and last episode was yesterday. She will reach out to GI to schedule. 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 GI consult faxed. Bushra Zamora [...] Date Reviewed: 04/10/2024 Reviewed by: Dmitry Galvan APRN.AIR [employer] W[employer] FILLER - Fully Assessed Primary Visit Diagnosis:Von Willebrand disease (HCC) [D68.00] Other Visit Diagnosis:Rectal bleeding [K62.5] Order(s):VON WILLEBRAND DX PANEL [SQVWFPN] Order #: [id number] FUTURE COMPLETE BLOOD COUNT AND DIFFERENTIAL [SQCBCDIF] Order #: [id number] FUTURE VON WILLEBRAND DX PNL (LIMITED) [SQVWFPR] Order #: [id number] FUTURE aminocaproic acid (AMICAR) 250 mg/mL (25 %) solutionTake 20 mL by mouth every 6 hours as needed (bleeding).Disp: 473 mLRfl: 1 CONSULT TO GASTROENTEROLOGY [9010] Order #: [id number]: 1 FUTURE Prescriptions as of 06/22/2024 - [...] hyoscyamine sublingual (more content not included)... Normal [facility] PT panel Coag (PPP)on 2024 INR Coag (PPP) [Relative time] 1.0 {INR} Normal 0.9-1.3 [facility] Comment on above: Order Comment: Speci men Type: BLOOD SPECIMEN Ordering Facility: [facility] Address: [address] [place] [address] Result Comment: Dea min K Antagonist (VKA) Therapeutic Range: INR 2 to 3 (Target INR of 2.5) Note: For patients treated with VKA drugs, such as warfarin, the [employer] 2012 Guideline recommends [...] 70: 252-289 Performed By: #### 3 4528-0, 97213-3 #### [facility] CLIA [id number] [address] [place] [address] [place] PT Coag (PPP) [Time] 11.0 s Normal 9.7-13.0 [facility] Comment on above: Order Comment: Gian cornell Type: BLOOD SPECIMEN Ordering Facility: [facility] Address: [address] [place] [address] Performed By: #### 3 4528-0, 20493-6 #### [facility] CLIA [id number] [address] [place] [address] [place] VON WILLEBRAND DX PNL REFon 06-19-2024 Bound rFVIII/vWf Ag IA (P) [Relative ratio] 0.8 Normal >=0.5 [facility] Comment on above: Order Comment: Gian cornell Type: BLOOD SPECIMEN Ordering Facility: [facility] Address: [address] [place] [address] Performed By: #### V CAROLINE, [id number] #### [facility] CLIA [id number] [address] [place] [address] [place] Coagulation factor VIII activity actual/normal Coag (PPP) [Relative time] 60 % Normal 50-173 [facility] Comment on above: Order Comment: Gian cornell Type: BLOOD SPECIMEN Ordering Facility: [facility] Address: [address] [place] [address] Performed By: #### Kenrick VELAZQUEZ, [id number] #### [facility] CLIA [id number] [address] [place] [address] [place] GPIBM ACTIVITY 72 % Normal 44-156 [facility] Comment on above: Order Comment: Gian cornell Type: BLOOD SPECIMEN Ordering Facility: [facility] Address: [address] [place] [address] Result Comment: This test was developed, and its performance characteristics determined by [facility]. It has not been cleared or approved by the FDA. [facility] is regulated under CLIA as qualified to perform high-complexity testing. This test is used for clinical purposes. It should not be regarded as investigational or for research. Performed By: #### V OLIVERP, [id number] #### [facility] CLIA [id number] [address] [place] [address] [place] vWf Ag actual/normal IA (PPP) [Relative mass conc] 74 % Normal 50-173 [facility] Comment on above: Order Comment: Speci kraig Type: BLOOD SPECIMEN Ordering Facility: [facility] Address: [address] [place] [address] Performed By: #### Kenrick VELAZQUEZ [id number] #### [facility] CLIA [id number] [address] [place] [address] [place] vWf multimers Ql (PPP) Normal [facility] Comment on above: Order Comment: Speci men Type: BLOOD SPECIMEN Ordering Facility: [facility] Address: [address] [place] [address] Result Comment: Assa y of von Willebrand multimers was performed by an agarose gel electrophoresis followed by immunofixation with anti-von Willebrand factor antiserum. There is a normal multimer distribution with low intensity of bands. Reviewed by Lalita Figueroa M.D., Ph.D. This test was developed, and its performance characteristics determined by the [facility]. It has not been cleared or approved by the FDA. [facility] is regulated under CLIA as qualified to perform high-complexity testing. This test is used for clinical purposes. It should not be regarded as investigational or for research. Performed By: #### Kenrick VELAZQUEZ [id number] #### [facility] CLIA [id number] [address] [place] [address] [place] vWf ristocetin cofactor act/vWf Ag (PPP) [Ratio] 1.0 Normal >=0.5 [facility] Comment on above: Order Comment: Speci kraig Type: BLOOD SPECIMEN Ordering Facility: [facility] Address: [address] [place] [address] Performed By: #### Kenrick VELAZQUEZ [id number] #### [facility] CLIA [id number] [address] [place] [address] [place] vWf.collagen binding activity actual/normal IA (PPP) [Relative ratio] 60 % Normal 41-161 [facility] Comment on above: Order Comment: Gian cornell Type: BLOOD SPECIMEN Ordering Facility: [facility] Address: [address] [place] [address] Result Comment: This test was developed, and its performance characteristics determined by [facility]. It has not been cleared or approved by the FDA. [facility] is regulated under CLIA as qualified to perform high-complexity testing. This test is used for clinical purposes. It should not be regarded as investigational or for research. Performed By: #### Kenrick VELAZQUEZ, [id number] #### [facility] CLIA [id number] [address] [place] [address] [place] vWf.collagen binding activity/vWf Ag IA (PPP) [Ratio] 0.8 Normal >=0.6 [facility] Comment on above: Order Comment: Gian cornell Type: BLOOD SPECIMEN Ordering Facility: [facility] Address: [address] [place] [address] Performed By: #### Kenrick VELAZQUEZ, [id number] #### [facility] CLIA [id number] [address] [place] [address] [place] VWF DX PNL (VWFPR) INTERPon 06-19-2024 Pathologist name Reviewed by Elidia lane DO, MPH Normal [facility] Comment on above: Order Comment: Gian cornell Type: BLOOD SPECIMEN Ordering Facility: [facility] Address: [address] [place] [address] Performed By: #### Kenrick BOYDP, [id number] #### [facility] CLIA [id number] [address] [place] [address] [place] von Willebrand evaluation (PPP) [Interp] Normal [facility] Comment on above: Order Comment: Gian cornell Type: BLOOD SPECIMEN Ordering Facility: [facility] Address: [address] [place] [address] Result Comment: Godfrey al - see comment [...] 7:04 AM EST. Performed By: #### V [facility], [id number] #### [facility] CLIA [id number] [address] [place] [address] [place] aPTT PPPon 06-19-2024 aPTT Coag (PPP) [Time] 31.9 s Normal 23.0-32.4 [facility] Comment on above: Order Comment: Speci men Type: BLOOD SPECIMEN Ordering Facility: [facility] Address: [address] [place] [address] Result Comment: Froz en Plasma Aliquot Performed By: #### 3 4528-0, 80254-0 #### [facility] CLIA [id number] [address] [place] [address] [place] CULTURE, URINE, ROUTINEon CULTURE, URINE, ROUTINE SEE NOTE Normal [facility] Comment on above: Order Comment: 0 Result Comment: CULTURE, URINE, ROUTINE Micro Number: [id number] Test Status: Final Specimen Source: Urine Specimen Quality: Adequate Result: No Growth Performed By: #### 3 95 #### [facility] [address] [place] [address], [address] [place] [address] Radio Division Officer: Rafael Lundberg MD 36on 06-05-2024 36 S: [...] Protocols used: No Contact or Duplicate Contact Vswh-HFAYL-OT [facility] Urine Cultureon 06-02-2024 URC Mixed Gram Positive Organisms [place] Count 11,000-25,000 MIXC Mixed contaminants. Submit a new specimen if indicated. Normal [facility] Comment on above: Performed By: #### M 100.2200 #### [facility] Laboratory [address] [facility] [place], [place], [address] Abdomen/Pelvis W IV Cont ONL Yon 05-31-2024 Abdomen/Pelvis W IV Cont ONLY [facility] Services [address] [place], [place] [address] Abdomen/Pelvis W IV Cont ONLY MR#: [id number] Acct: [id number] Name: JERRICA SUGGS Rep #: [id number] : 1995 F 29 From: Saroj deal MD PCP: Dr. Nunu Cortez MD Status: REG ER Study: Abdomen/Pelvis W IV Cont ONLY Date of Exam: Exam# [id number] Ordering Dr: Alonzo Argueta DO PROCEDURE: ABDOMEN/PELVIS [...] use of iterative reconstruction technique). Reading Location: [place] [address] CC: Dr. Nunu Cortez MD; Dr. Alonzo Argueta DO Manager Land: Signed Normal [facility] Absolute lymphocyte countOrd ered By: Alonzo Argueta on 05-31-2024 Lymphocytes Auto (Unsp spec) [#/Vol] 2.26 10*3/uL 0.83-4.51 [facility] Absolute neutrophil countOrd ered By: Alonzo Argueta on 05-31-2024 Neutrophils (Bld) [#/Vol] 4.1 10*3/uL 2.0-7.7 [facility] Albumin to globulin ratioOrd ered By: Alonzo Argueta on 05-31-2024 Albumin/Globulin [Mass ratio] 1.0 {ratio} 0.9-2.4 [facility] Automated lymphocyte count a s percentage of total leukocytesOrdered By: Alonzo Argueta on 05-31-2024 Lymphocytes/100 WBC Auto (Unsp spec) 29.5 % 19-41 [facility] Basophil percentageOrdered B y: Alonzo Argueta on 05-31-2024 Basophils/100 WBC (Bld) 0.8 % 0-1 [facility] Bilirubin Test strip Ql (U)O rdered By: Alonzo Argueta on 05-31-2024 Bilirubin Ql (U) Negative Negative [facility] Bilirubin directOrdered By: Alonzo Argueta on 05-31-2024 Bilirubin.direct [Mass/Vol] 0.11 mg/dL 0.00-0.30 [facility] Bilirubin, totalOrdered By: Alonzo Argueta on 05-31-2024 Bilirubin [Mass/Vol] 0.60 mg/dL 0.20-1.00 [facility] Comment on above: For patients on eltr ombopag therapy, use of Dimension [place] TBIL is not recommended. Blood urea nitrogen (BUN)/cr eatinine ratioOrdered By: Alonzo Argueta on 05-31-2024 Urea nitrogen/Creatinine [Mass ratio] 11.2 mg/mg 10-20 [facility] CBC W/Diff, Automatedon Absolute Lymph 2.26 X10 3/uL Normal 0.83-4.51 [facility] Comment on above: Performed By: #### M 100.637, M1.96 #### [facility] [address] [place], [address] Absolute Neut 4.1 X10 3/uL Normal 2.0-7.7 [facility] Comment on above: Performed By: #### M 100.637, M196 #### [facility] [address] [place], [address] Basophils/100 WBC (Bld) 0.8 % Normal 0-1 [facility] Comment on above: Performed By: #### M 100.637, M1.96 #### [facility] [address] [place], [address] Eosinophils/100 WBC (Bld) 7.6 % High 0-5 [facility] Comment on above: Performed By: #### M 100.637, M1.96 #### [facility] [address] [place], [address] Erythrocyte distribution width (RBC) [Ratio] 11.9 % Normal 11.6-14.6 [facility] Comment on above: Performed By: #### M 100.637, M1.96 #### [facility] [address] [place], [address] Hematocrit (Bld) [Volume fraction] 44.6 % Normal 37-47 [facility] Comment on above: Performed By: #### M 100.637, M196 #### [facility] [address] [place], [address] Hemoglobin (Bld) [Mass/Vol] 15.3 g/dL High 12.0-15.0 [facility] Comment on above: Performed By: #### M 100.637, 96 #### [facility] [address] [place], [address] IG% 0.500 Normal 0.0-0.9 [facility] Comment on above: Result Comment: IG% - Immature Granulocytes (promyelocytes, myelocytes and metamyelocytes) > 1% indicates that a LEFT SHIFT is Present. Performed By: #### M 100.637, #### [facility] [address] [place], [address] Lymphocytes/100 WBC (Bld) 29.5 % Normal 19-41 [facility] Comment on above: Performed By: #### M 100.637, #### [facility] [address] [place], [address] MCH (RBC) [Entitic mass] 30.7 pg Normal 27.0-32.0 [facility] Comment on above: Performed By: #### M 100.637, #### [facility] [address] [place], [address] MCHC (RBC) [Mass/Vol] 34.3 g/dL Normal 32-36 [facility] Comment on above: Performed By: #### M 100.637, 96 #### [facility] [address] [place], [address] MCV (RBC) [Entitic vol] 89.4 fL Normal 81-99 [facility] Comment on above: Performed By: #### M 100.637, #### [facility] [address] [place], [address] Monocytes/100 WBC (Bld) 8.4 % Normal 0-10 [facility] Comment on above: Performed By: #### M 100.637, 96 #### [facility] [address] [place], [address] Neutrophils/100 WBC (Bld) 53.2 % Normal 47-70 [facility] Comment on above: Performed By: #### M 100.637, 96 #### [facility] [address] [place], [address] Nucleated RBC (Bld) [#/Vol] 0 10*3/uL Normal 0-5 [facility] Comment on above: Performed By: #### M 100.637, #### [facility] [address] [place], [address] Platelet mean volume (Bld) [Entitic vol] 10.2 fL Normal 6.2-12.0 [facility] Comment on above: Performed By: #### M 100.637, 96 #### [facility] [address] [place], [address] Platelets (Bld) [#/Vol] 250 10*3/uL Normal 150-450 [facility] Comment on above: Performed By: #### M 100.637, 96 #### [facility] [address] [place], [address] RBC (Bld) [#/Vol] 4.99 10*6/uL Normal 4.2-5.4 [facility] Comment on above: Performed By: #### M 100.637, 96 #### [facility] [address] [place], [address] RDW SD 38.7 fl Normal 35.1-43.9 [facility] Comment on above: Performed By: #### M 100.637, M100.96 #### [facility] [address] [place], [address] WBC (Bld) [#/Vol] 7.7 10*3/uL Normal 4.4-11.0 [facility] Comment on above: Performed By: #### M 100.637, M1.96 #### [facility] [address] [place], [address] CDIFF (PCR)on 05-31-2024 CDIFF Is the patient recei ving laxatives? N New/unexplained onset of 3 or more stools in past 24 hrs? Y Pending 027 027 NAP1-B1 Presumptive Negative *for epidemiolologic???use C. Diff PCR Negative- No toxigenic C. Diff Detected Normal [facility] Comment on above: Performed By: #### M 100.637, M196 #### [facility] [address] [place], [address] Carbon dioxide measurementOr dered By: Alonzo Argueta on 05-31-2024 CO2 [Moles/Vol] 27.0 mmol/L 21.0-32.0 [facility] Chloride measurementOrdered By: Alonzo Argueta on 05-31-2024 Chloride [Moles/Vol] 105 mmol/L 98-107 [facility] Clostridium difficile detect ion by polymerase chain reactionOrdered By: Alonzo Argueta on 05-31-2024 C. difficile DNA MACIEL+probe Ql (Unsp spec) [facility] Comprehensive Metabolic Prof ilon 05-31-2024 Albumin/Globulin [Mass ratio] 1.0 {ratio} Normal 0.9-2.4 [facility] Comment on above: Performed By: #### M 100.637, M100.6796 #### [facility] [address] [place], [address] BUN/CRE 11.2 RATIO Normal 10-20 [facility] Comment on above: Performed By: #### M 100.637, M1.96 #### [facility] [address] [place], [address] CA,Total 9.0 mg/dL Normal 8.5-10.1 [facility] Comment on above: Performed By: #### M 100.637, M1.96 #### [facility] [address] [place], [address] Chloride [Moles/Vol] 105 mmol/L Normal 98-107 [facility] Comment on above: Performed By: #### M 100.637, M196 #### [facility] [address] [place], [address] CO2 [Moles/Vol] 27.0 mmol/L Normal 21.0-32.0 [facility] Comment on above: Performed By: #### M 100.637, 96 #### [facility] [address] [place], [address] Creatinine [Mass/Vol] 0.71 mg/dL Normal 0.55-1.02 [facility] Comment on above: Result Comment: The validity of the calculated GFR GFRAA in patients over 70 years has not been determined. Clinical correlation is essential. Performed By: #### M 100.637, 96 #### [facility] [address] [place], [address] ECRCL 111.87 ml/min Normal [facility] Comment on above: Performed By: #### M 100.637, M196 #### [facility] [address] [place], [address] EST GFR - AA 125 mL/min Normal >60 [facility] Comment on above: Result Comment: Afri can Armenian GFR Calc Performed By: #### M 100.637, M196 #### [facility] [address] [place], [address] GAP 6 Normal 5-15 [facility] Comment on above: Performed By: #### M 100.637, M1.96 #### [facility] [address] [place], [address] GFR/1.73 sq M.predicted among non-blacks MDRD (S/P/Bld) [Vol rate/Area] 103 mL/min/{1.73_m2} Normal >60 [facility] Comment on above: Result Comment: Non- GFR Calc Performed By: #### M 100.637, M1.96 #### [facility] [address] [place], [address] Glucose [Mass/Vol] 88 mg/dL Normal 74-106 [facility] Comment on above: Performed By: #### M 100.637, M1.96 #### [facility] [address] [place], [address] Potassium [Moles/Vol] 3.5 mmol/L Normal 3.5-5.1 [facility] Comment on above: Performed By: #### M 100.637, M100.96 #### [facility] [address] [place], [address] Sodium [Moles/Vol] 138 mmol/L Normal 136-145 [facility] Comment on above: Performed By: #### M 100.637, M1.96 #### [facility] [address] [place], [address] Urea nitrogen [Mass/Vol] 8 mg/dL Normal 7-18 [facility] Comment on above: Performed By: #### M 100.637, M100.6796 #### [facility] [address] [place], [address] ENTERIC PATHOGEN PANEL STOOL on 02-05-2025 EP [...] VIBRIO Not Detected Yersinia Not Detected Normal [facility] Comment on above: Performed By: #### M 100.637, M100.6796 #### [facility] [address] [place], [address] Emergency Department Summary on 05-31-2024 Emergency Department Summary [facility] Medical Records Department [address] [place] [address] Emergency Department Summary 05/31/24 MR#: [id number] Acct: [id number] Name: JERRICA SUGGS Rep #: [id number] : 1995 29 From: Alonzo [place] PCP: [...] alert Skin (more content not included)... Normal [facility] Eosinophil percentageOrdered By: Alonzo Argueta on 05-31-2024 Eosinophils/100 WBC (Bld) 7.6 % High 0-5 [facility] Erythrocyte distribution wid th ratioOrdered By: Alonzo Argueta on 05-31-2024 Erythrocyte distribution width (RBC) [Ratio] 11.9 % 11.6-14.6 [facility] Erythrocyte distribution wid th standard deviationOrdered By: Alonzo Argueta on 05-31-2024 Erythrocyte distribution width (RBC) [Ratio] 38.7 fl 35.1-43.9 [facility] Glomerular filtration rate ( GFR) estimationOrdered By: Alonzo Argueta on 05-31-2024 GFR/1.73 sq M.predicted among non-blacks MDRD (S/P/Bld) [Vol rate/Area] 103 mL/min/{1.73_m2} >60 [facility] Comment on above: Non- GFR Calc Glucose measurementOrdered B y: Alonzo Elile on 05-31-2024 Glucose [Mass/Vol] 88 mg/dL 74-106 [facility] Hematocrit Auto (Bld) [Volum e fraction]Ordered By: Alonzo Argueta on 05-31-2024 Hematocrit (Bld) [Volume fraction] 44.6 % 37-47 [facility] Hemoglobin measurementOrdere d By: Alonzo Argueta on 05-31-2024 Hemoglobin (Bld) [Mass/Vol] 15.3 g/dL High 12.0-15.0 [facility] Immature granulocytes/100 WB C Auto (Bld)Ordered By: Alonzo Argueta on 05-31-2024 Immature granulocytes/100 WBC (Bld) 0.500 % 0.0-0.9 [facility] Comment on above: IG% - Immature Granu locytes (promyelocytes, myelocytes and metamyelocytes) > 1% indicates that a LEFT SHIFT is Present. Ketones Test strip Ql (U)Ord ered By: Alonzo Argueta on 05-31-2024 Ketones Ql (U) Negative Negative [facility] Laboratory - Chemistry and C hemistry - challengeOrdered By: Alonzo Argueta on 05-31-2024 AST [Catalytic activity/Vol] 17 U/L 15-37 [facility] Lipaseon 05-31-2024 Lipase [Catalytic activity/Vol] 24 U/L Normal 13-75 [facility] Comment on above: Result Comment: Lorraine marmolejo note: LIPASE revised reference range effective 22. New Lipase methodology. Expected to produce lower values than the previous assay method. NEW Reference Range: 13 - 75 U/L Performed By: #### M 100.637, M100.6796 #### [facility] [address] [place], [address] Lipase measurementOrdered By : Alonzo Argueta on 05-31-2024 Lipase [Catalytic activity/Vol] 24 U/L 13-75 [facility] Comment on above: Please note:LIPASE r evised reference range effective 22. New Lipase methodology. Expected to produce lower values than the previous assay method. NEW Reference Range: 13 - 75 U/L Liver Profileon 05-31-2024 Albumin [Mass/Vol] 3.8 g/dL Normal 3.2-5.0 [facility] Comment on above: Performed By: #### M 100.637, M100.96 #### [facility] [address] [place], [address] ALK P 63 U/L Normal 45-117 [facility] Comment on above: Performed By: #### M 100.637, M1.96 #### [facility] [address] [place], [address] ALT [Catalytic activity/Vol] 22 U/L Normal 13-56 [facility] Comment on above: Performed By: #### M 100.637, M1.96 #### [facility] [address] [place], [address] AST [Catalytic activity/Vol] 17 U/L Normal 15-37 [facility] Comment on above: Performed By: #### M 100.637, M1.96 #### [facility] [address] [place], [address] Bilirubin [Mass/Vol] 0.60 mg/dL Normal 0.20-1.00 [facility] Comment on above: Result Comment: For patients on eltrombopag therapy, use of Dimension [place] TBIL is not recommended. Performed By: #### M 100.637, M1.96 #### [facility] [address] [place], [address] Bilirubin.direct [Mass/Vol] 0.11 mg/dL Normal 0.00-0.30 [facility] Comment on above: Performed By: #### M 100.637, M100.6796 #### [facility] [address] [place], [address] Globulin (S) [Mass/Vol] 3.9 g/dL Normal 2.2-4.2 [facility] Comment on above: Performed By: #### M 100.637, M100.6796 #### [facility] [address] [place], [address] T PROT 7.7 g/dL Normal 6.4-8.2 [facility] Comment on above: Performed By: #### M 100.637, M100.6796 #### [facility] [address] [place], [address] MCV (mean corpuscular volume ) determinationOrdered By: Alonzo Argueta on 05-31-2024 MCV (RBC) [Entitic vol] 89.4 fL 81-99 [facility] Mean corpuscular hemoglobin (MCH) determinationOrdered By: Alonzo Argueta on 05-31-2024 MCH (RBC) [Entitic mass] 30.7 pg 27.0-32.0 [facility] Mean corpuscular hemoglobin concentration (MCHC) determinationOrdered By: Alonzo Argueta on 05-31-2024 MCHC (RBC) [Mass/Vol] 34.3 g/dL 32-36 [facility] Mean platelet volume determi nationOrdered By: Alonzo Argueta on 05-31-2024 Platelet mean volume (Bld) [Entitic vol] 10.2 fL 6.2-12.0 [facility] Microscopic analysis of urin e for red blood cells (RBC)Ordered By: Alonzo Argueta on 05-31-2024 Microscopic analysis of urine for red blood cells (RBC) 0-5 SEEN /hpf 0-5 [facility] Monocyte percentageOrdered B y: Alonzo Argueta on 05-31-2024 Monocytes/100 WBC (Bld) 8.4 % 0-10 [facility] Mucus LM Ql (Urine sed)Order ed By: Alonzo Argueta on 05-31-2024 Mucus Ql (Urine sed) 0 SEEN /hpf [facility] Neutrophil percentageOrdered By: Alonzo Argueta on 05-31-2024 Neutrophils/100 WBC (Bld) 53.2 % 47-70 [place] [facility] Nitrite Test strip Ql (U)Ord ered By: Alonzo Argueta on 05-31-2024 Nitrite Ql (U) Negative Negative [facility] Nucleated red blood cell per centageOrdered By: Alonzo Argueta on 05-31-2024 Nucleated RBC/100 WBC (Bld) [Ratio] 0 % 0-5 [facility] Platelet countOrdered By: Lele Argueta on 05-31-2024 Platelets (Bld) [#/Vol] 250 10*3/uL 150-450 [facility] Potassium measurementOrdered By: Alonzo Argueta on 05-31-2024 Potassium [Moles/Vol] 3.5 mmol/L 3.5-5.1 [facility] ,Urineon 05-31-2024 Beta HCG ( test) Ql (U) Negative Normal [facility] Comment on above: Order Comment: Result Comment: Very dilute urine specimens, as indicated by a low specific gravity, may not contain real estate representative levels of hCG. If is still suspected, a first morning urine specimen should be collected 48 hours later and tested. Performed By: #### M 100.637, M100.6796 #### [facility] [address] [place] [address]. [place], [address] Protein Test strip Ql (U)Ord ered By: Alonzo Argueta on 05-31-2024 Protein Ql (U) 15 mg/dl High Negative [facility] RBC Auto (Bld) [#/Vol]Ordere d By: Alonzo Argueta on 05-31-2024 RBC (Bld) [#/Vol] 4.99 10*6/uL 4.2-5.4 [facility] Serum anion gap measurementO rdered By: Alonzo Argueta on 05-31-2024 Anion gap [Moles/Vol] 6 mmol/L 5-15 [facility] Serum globulin measurementOr dered By: Alonzo Argueta on 05-31-2024 Globulin (S) [Mass/Vol] 3.9 g/dL 2.2-4.2 [facility] Serum or plasma alanine gtz otransferase (ALT) measurementOrdered By: Alonzo Argueta on 05-31-2024 ALT [Catalytic activity/Vol] 22 U/L 13-56 [facility] Serum or plasma albumin eran urement (mass/volume)Ordered By: Alonzo Argueta on 05-31-2024 Albumin [Mass/Vol] 3.8 g/dL 3.2-5.0 [facility] Serum or plasma alkaline demetrius sphatase measurementOrdered By: Alonzo Argueta on 05-31-2024 ALP [Catalytic activity/Vol] 63 U/L 45-117 [facility] Serum or plasma calcium eran urement (mass/volume)Ordered By: Alonzo Argueta on 05-31-2024 Calcium [Mass/Vol] 9.0 mg/dL 8.5-10.1 [facility] Serum or plasma creatinine m easurement (mass/volume)Ordered By: Alonzo Argueta on 05-31-2024 Creatinine [Mass/Vol] 0.71 mg/dL 0.55-1.02 [facility] Comment on above: The validity of the calculated GFR & GFRAA in patients over 70 years has not been determined. Clinical correlation is essential. Serum or plasma urea nitroge n measurement (mass/volume)Ordered By: Alonzo Argueta on 05-31-2024 Urea nitrogen [Mass/Vol] 8 mg/dL 7-18 [facility] Sodium levelOrdered By: Alonzo Argueta on 05-31-2024 Sodium [Moles/Vol] 138 mmol/L 136-145 [facility] Squamous epithelial cells de tection in urine sediment by light microscopyOrdered By: Alonzo Argueta on 05-31-2024 Epithelial cells.squamous LM Ql (Urine sed) 5-10 SEEN /hpf 5-10 [facility] Total proteinOrdered By: Dong Argueta on 05-31-2024 Protein [Mass/Vol] 7.7 g/dL 6.4-8.2 [facility] Urinalysis, Completeon 05-31 RBC 0-5 SEEN Normal 0-5 [facility] Comment on above: Order Comment: CLEAN CATCH Performed By: #### M 100.637, M100.4359 #### [facility] [address] [place], [address] WBC 0-5 SEEN Normal 0-5 [facility] Comment on above: Order Comment: CLEAN CATCH Performed By: #### M 100.637, M100.6796 #### [facility] [address] [place], [address] BACTERIA 2+ /hpf Normal None Seen [facility] Comment on above: Order Comment: CLEAN CATCH Performed By: #### M 100.637, M100.6796 #### [facility] [address] [place], [address] EPI,SQUAMOUS 5-10 SEEN Normal 5-10 [facility] Comment on above: Order Comment: CLEAN CATCH Performed By: #### M 100.637, M100.6796 #### [facility] [address] [place], [address] Mucus Ql (Urine sed) 0 SEEN Normal [facility] Comment on above: Order Comment: CLEAN CATCH Performed By: #### M 100.637, M100.6796 #### [facility] [address] [place], [address] Urine clarityOrdered By: Dong Argueta on 05-31-2024 Clarity (U) Sl. Cloudy Clear [facility] Urine color determinationOrd ered By: Alonzo Argueta on 05-31-2024 Color (U) Yellow Yellow [facility] Urine cultureOrdered By: Dong Argueta on 05-31-2024 Bacteria identified Cx Nom (U) Positive Abnormal [facility] Urine glucose detectionOrder ed By: Alonzo Argueta on 05-31-2024 Glucose Ql (U) Normal mg/dl Normal [facility] Urine leukocyte esterase det ection by dipstickOrdered By: Alonzo Argueta on 05-31-2024 Leukocyte esterase Test strip Ql (U) 25 /ul High Negative [facility] Urine pHOrdered By: Alonzo Argueta on 05-31-2024 pH (U) 7.0 [pH] 5.0 - 8.0 [facility] Urine testOrdered By: Alonzo Argueta on 05-31-2024 HCG ( test) Ql (U) Negative [facility] Comment on above: Very dilute urine sp ecimens, as indicated by a low specificgravity, may not contain real estate representative levels of hCG. If is still suspected, a first morning urinespecimen should be collected 48 hours later and tested. Urine sediment bacteria coun t by microscopy (number/high power field)Ordered By: Alonzo Argueta on 05-31-2024 Bacteria LM.HPF (Urine sed) [#/Area] 2 /[HPF] None Seen [facility] Urine specific gravity measu rementOrdered By: Alonzo Argueta on 05-31-2024 Specific gravity (U) [Rel density] 1.010 1.002-1.03 0 [facility] Urine urobilinogen measureme ntOrdered By: Alonzo Argueta on 05-31-2024 Urobilinogen Ql (U) Normal mg/dl Normal [facility] White blood cell (WBC) count Ordered By: Alonzo Argueta on 05-31-2024 WBC (Bld) [#/Vol] 7.7 10*3/uL 4.4-11.0 [facility] White blood cell countOrdere d By: Alonzo Argueta on 05-31-2024 White blood cell count 0-5 SEEN /hpf 0-5 [facility] CNOVon 04-10-2024 CN Office Visit (UCTR ) JERRICA SUGGS ([id number]) 1995 F Date Time Provider Department 04/10/24 8:15 AM DMITRY GALVAN RUST During your visit today, we recorded the following information about you: Temperature Pulse Respiration Blood pressure 98.5 degrees 93/minute 16/minute 122/72 Weight 77.5 kg Dmitry Galvan APRN.[employer] 04/10/2024 9:18 AM Signed Subjective HPI Nontoxic [...] respiratory dist (more content not included)... Normal [facility] XR CHEST 2V FRONTAL/LATon XR CHEST [...] RIGHT upper lobe opacities suggestive of pneumonia. Manager Land: GURPREET Transcribe Date/Time: Apr 10 2024 8:56A Dictated by : MARK JUAREZ DO This examination was interpreted and the report reviewed and electronically signed by: MARK JUAREZ DO on Apr 10 2024 9:02AM EST [id number] Normal [facility] XR Chest PA and Lateralon IMPRESSION: Patchy anterior RIGHT upper lobe opacities suggestive of pneumonia. Manager [place]: GURPREET Transcribe Date/Time: Apr 10 2024 8:56A [...] Unremarkable. DIVISION OF RADIOLOGY Provider, [facility] - 04/10/2024 * * *Final Report* [...] RIGHT upper lobe opacities suggestive of pneumonia. Manager [place]: GURPREET Transcribe Date/Time: Apr 10 2024 8:56A Dictated by : MARK JUAREZ DO This examination was interpreted and the report reviewed and electronically signed by: MARK JUAREZ DO on Apr 10 2024 9:02AM EST [facility] Radiology Study observation (narrative) [facility] XR Chest PA and LateralOrder ed By: [facility] Provider on 04-10-2024 [facility] 36on 12-17-2023 36 Jerrica called in re garding appointment scheduled 12/20/23 for her vaccination. States she was unaware while scheduling appointment it was being scheduled in [place] office opposed to [place]. Asked if it was possible to be completed in [place]. Please advise. Normal [facility] Office Visiton 09-15-2023 Follow-up visit [id number] Shelli Suggs 1995 F Date Provider Department Center 09/15/2023 [id number]-CSNIBKOREBECCA [facility] ALS None Family History Problem Relation Age of Onset High Blood Pressure Mother Multiple sclerosis Mother Cancer Paternal Grandmother Family Status - Relation Status Age at Mother Alive Father Alive Maternal Grandmother Alive Maternal Grandfather Paternal Grandmother Paternal Grandfather Alive Level of Service:52032 [place] [facility] FOLLOW UP VISIT RELATED TO ORIGINAL PX Reason for Visit and Comments: Post-op [483] - ALS PO LAP HUYEN 09/03/23 Normal [facility] Progress Noteon 09-15-2023 Progress Note [facility] Advanced Laparoscopic Surgery Patient Name: Jerrica Suggs [...] Medicine) Bakari Silva MD (Hematology and Oncology) [facility] BASIC METABOLIC PANELon 05- Anion gap [Moles/Vol] 10 mmol/L Normal 3-13 [facility] Comment on above: Performed By: #### L [id number] ####Radio Division Officer: ALEXX JAY ([id number])[facility] [place] [address] Calcium [Mass/Vol] 9.5 mg/dL Normal 8.4-10.4 [facility] Comment on above: Performed By: #### L [id number] ####Radio Division Officer: ALEXX JAY ([id number])[facility])[address] [place] [address] Chloride [Moles/Vol] 105 mmol/L Normal 98-107 [facility] Comment on above: Performed By: #### L AB15 ####Radio Division Officer: ALEXX JAY ([id number])[facility] ([facility])[address] [place] [address] CO2 [Moles/Vol] 22 mmol/L Normal 22-30 [facility] Comment on above: Performed By: #### L [id number] ####Radio Division Officer: ALEXX JAY ([id number])[facility] ([facility])[address] [place] [address] Creatinine [Mass/Vol] 0.52 mg/dL Normal 0.52-1.04 [facility] Comment on above: Performed By: #### L AB15 ####Radio Division Officer: ALEXX JAY ([id number])[facility])[address] [place] [address] GLOMERULAR FILTRATION RATE ML/MIN/1.73 SQ M.PREDICTED >90.0 Normal >60.0 [facility] Comment on above: Result Comment: Calc ulation based on the Chronic Kidney Disease Epidemiology Collaboration (CKD-EPI) equation refit without adjustment for race Performed By: #### L AB15 ####Radio Division Officer: ALEXX JAY ([id number])[facility] ([facility])[address] [place] [address] [place] Glucose [Mass/Vol] 156 mg/dL High 70-100 [facility] Comment on above: Performed By: #### L AB15 ####Radio Division Officer: ALEXX JAY ([id number])[facility] ([facility])[address] [place] [address] [place] Potassium [Moles/Vol] 4.4 mmol/L Normal 3.5-5.1 [facility] Comment on above: Performed By: #### L [id number] ####Radio Division Officer: ALEXX JAY ([id number])[facility] ([facility])[address] [place] [address] Sodium [Moles/Vol] 137 mmol/L Normal 135-145 [facility] Comment on above: Performed By: #### L AB15 ####Radio Division Officer: ALEXX JAY ([id number])[facility] ([facility])[address] [place] [address] Urea nitrogen [Mass/Vol] 5 mg/dL Low 7-17 [facility] Comment on above: Performed By: #### L AB15 ####Radio Division Officer: ALEXX JAY ([id number])[facility] ([facility])[address] [place] [address] Basic metabolic 1998 panelon 09-04-2023 Anion gap [Moles/Vol] 10 mmol/L 3 - 13 mmol/L [facility] Calcium [Mass/Vol] 9.5 mg/dL 8.4 - 10. 4 mg/dL [facility] Chloride [Moles/Vol] 105 mmol/L 98 - 10 7 mmol/L [facility] CO2 [Moles/Vol] 22 mmol/L 22 - 30 mmol/L [facility] Creatinine [Mass/Vol] 0.52 mg/dL 0.52 - 1.04 mg/dL [facility] GFR/1.73 sq M.predicted MDRD (S/P/Bld) [Vol rate/Area] - PINF [facility] Comment on above: Calculation based on the Chronic Kidney Disease Epidemiology Collaboration (CKD-EPI) equation refit without adjustment for race Glucose [Mass/Vol] 156 mg/dL High 70 - 100 mg/dL [facility] Interpretation and review of laboratory results Abnormal [facility] Potassium [Moles/Vol] 4.4 mmol/L 3.5 - 5.1 mmol/L [facility] Sodium [Moles/Vol] 137 mmol/L 135 - 145 mmol/L [facility] Urea nitrogen [Mass/Vol] 5 mg/dL Low 7 - 17 mg/dL [facility] CBC W Auto Differential pane l (Bld)on 09-04-2023 Basophils (Bld) [#/Vol] 0.0 10*3/uL 0.0 - 0.2 10*3/uL [facility] Basophils/100 WBC (Bld) 0.2 % 0.0 - 2.0 % [facility] Eosinophils (Bld) [#/Vol] 0.0 10*3/uL 0.0 - 0.5 10*3/uL [facility] Eosinophils/100 WBC (Bld) 0.0 % 0.0 - 6.0 % [facility] Erythrocyte distribution width (RBC) [Ratio] 11.7 % 11.5 - 15.0 % [facility] Hematocrit (Bld) [Volume fraction] 42.3 % 35.0 - 47.0 % [facility] Hemoglobin (Bld) [Mass/Vol] 14.5 g/dL 11.7 - 16.0 g/dL [facility] Immature granulocytes (Bld) [#/Vol] 0.1 10*3/uL High NINF - 0.1 10*3/uL [facility] Immature granulocytes/100 WBC (Bld) 0.5 % 0.0 - 2.0 % [facility] Interpretation and review of laboratory results Abnormal [facility] Lymphocytes (Bld) [#/Vol] 0.9 10*3/uL Low 1.0 - 4.3 10*3/uL [facility] Lymphocytes/100 WBC (Bld) 6.8 % Low 15.0 - 45.0 % [facility] MCH (RBC) [Entitic mass] 30.1 pg 26.0 - 34.[address] [facility] MCHC (RBC) [Mass/Vol] 34.3 % 30.5 - 36.0 % [facility] MCV (RBC) [Entitic vol] 87.8 fL 77.0 - 99.[address] [facility] Monocytes (Bld) [#/Vol] 0.7 10*3/uL 0.0 - 0.9 10*3/uL [facility] Monocytes/100 WBC (Bld) 5.1 % 5.0 - 13.0 % [facility] Neutrophils (Bld) [#/Vol] 11.3 10*3/uL High 1.8 - 7.5 10*3/uL [facility] Neutrophils/100 WBC (Bld) 87.4 % High 38.0 - 82.0 % [facility] Nucleated RBC/100 WBC (Bld) [Ratio] 0.0 % [facility] Platelet mean volume (Bld) [Entitic vol] 10.7 fL 9.0 - 12.[address] [facility] Platelets (Bld) [#/Vol] 260 10*3/uL 140 - 440 10*3/uL [facility] RBC (Bld) [#/Vol] 4.82 10*6/uL 3.80 - 5.20 10*6/uL [facility] WBC (Bld) [#/Vol] 12.9 10*3/uL High 3.6 - 10.7 10*3/uL [facility] CBC WITH AUTO DIFFERENTIALon 09-04-2023 Basophils (Bld) [#/Vol] 0.0 10*3/uL Normal 0.0-0.2 [facility] Comment on above: Performed By: #### L [id number] ####Radio Division Officer: ALEXX JAY ([phone])[facility])[address] [place] [address] Basophils/100 WBC (Bld) 0.2 % Normal 0.0-2.0 [facility] Comment on above: Performed By: #### L [id number] ####Radio Division Officer: ALEXX JAY ([id number])[facility])[address] [place] [address] Eosinophils (Bld) [#/Vol] 0.0 10*3/uL Normal 0.0-0.5 [facility] Comment on above: Performed By: #### L [id number] ####Radio Division Officer: ALEXX JAY ([id number])[facility])[address] [place] [address] Eosinophils/100 WBC (Bld) 0.0 % Normal 0.0-6.0 [facility] Comment on above: Performed By: #### L [id number] ####Radio Division Officer: ALEXX JAY ([id number])[facility])[address] [place] [address] Erythrocyte distribution width (RBC) [Ratio] 11.7 % Normal 11.5-15.0 [facility] Comment on above: Performed By: #### L [id number] ####Radio Division Officer: ALEXX JAY ([id number])[facility])[address] [place] [address] Hematocrit (Bld) [Volume fraction] 42.3 % Normal 35.0-47.0 [facility] Comment on above: Performed By: #### L [id number] ####Radio Division Officer: ALEXX JAY ([id number])[facility])[address] [place] [address] Hemoglobin (Bld) [Mass/Vol] 14.5 g/dL Normal 11.7-16.0 [facility] Comment on above: Performed By: #### L [id number] ####Radio Division Officer: ALEXX JAY ([id number])[facility])[address] [place] [address] IMMATURE GRANS % 0.5 % Normal 0.0-2.0 [facility] Comment on above: Performed By: #### L [id number] ####Radio Division Officer: ALEXX JAY ([id number])[facility])[address] [place] [address] IMMATURE GRANS ABSOLUTE 0.1 10*3/uL High <0.1 [facility] Comment on above: Performed By: #### L [id number] ####Radio Division Officer: ALEXX JAY ([id number])[facility])[address] [place] [address] Lymphocytes (Bld) [#/Vol] 0.9 10*3/uL Low 1.0-4.3 [facility] Comment on above: Performed By: #### L [id number] ####Radio Division Officer: ALEXX JAY ([id number])[facility])[address] [place] [address] Lymphocytes/100 WBC (Bld) 6.8 % Low 15.0-45.0 [facility] Comment on above: Performed By: #### L [id number] ####Radio Division Officer: ALEXX JAY ([id number])[facility])[address] [place] [address] MCH (RBC) [Entitic mass] 30.1 pg Normal 26.0-34.0 [facility] Comment on above: Performed By: #### L [id number] ####Radio Division Officer: ALEXX JAY ([id number])[facility])[address] [place] [address] MCHC 34.3 % Normal 30.5-36.0 [facility] Comment on above: Performed By: #### L [id number] ####Radio Division Officer: ALEXX JAY ([id number])[facility])[address] [place] [address] MCV (RBC) [Entitic vol] 87.8 fL Normal 77.0-99.0 [facility] Comment on above: Performed By: #### L [id number] ####Radio Division Officer: ALEXX JAY ([id number])[facility])[address] [place] [address] Monocytes (Bld) [#/Vol] 0.7 10*3/uL Normal 0.0-0.9 [facility] Comment on above: Performed By: #### L [id number] ####Radio Division Officer: ALEXX JAY ([id number])[facility])[address] [place] [address] Monocytes/100 WBC (Bld) 5.1 % Normal 5.0-13.0 [facility] Comment on above: Performed By: #### L [id number] ####Radio Division Officer: ALEXX JAY ([id number])[facility])[address] [place] [address] NEUTROPHILS ABSOLUTE 11.3 10*3/uL High 1.8-7.5 [facility] Comment on above: Performed By: #### L [id number] ####Radio Division Officer: ALEXX JAY ([id number])[facility] [place] [address] Neutrophils/100 WBC (Bld) 87.4 % High 38.0-82.0 [facility] Comment on above: Performed By: #### L [id number] ####Radio Division Officer: ALEXX JAY ([id number])[facility] ([facility])[address] [place] [address] NRBC 0.0 /100 WBCs Normal 0.0-2.0 [facility] Comment on above: Performed By: #### L [id number] ####Radio Division Officer: ALEXX JAY ([id number])[facility] ([facility])[address] [place] [address] Platelet mean volume (Bld) [Entitic vol] 10.7 fL Normal 9.0-12.7 [facility] Comment on above: Performed By: #### L [id number] ####Radio Division Officer: ALEXX JAY ([id number])[facility] ([facility])[address] [place] [address] Platelets (Bld) [#/Vol] 260 10*3/uL Normal 140-440 [facility] Comment on above: Performed By: #### L [id number] ####Radio Division Officer: ALEXX JAY ([id number])[facility] ([facility])[address] [place] [address] RBC (Bld) [#/Vol] 4.82 10*6/uL Normal 3.80-5.20 [facility] Comment on above: Performed By: #### L [id number] ####Radio Division Officer: ALEXX JAY ([id number])[facility] ([facility])[address] [place] [address] WBC (Bld) [#/Vol] 12.9 10*3/uL High 3.6-10.7 [facility] Comment on above: Performed By: #### L [id number] ####Radio Division Officer: ALEXX JAY ([id number])[facility] ([facility])[address] [place] [address] Laboratory - Coagulationon 0 09-04-2023 aPTT Coag (PPP) [Time] 28.0 s 20.0 - 30.[address] [facility] INR Coag (PPP) [Relative time] 1.0 {INR} 0.9 - 1.1 [facility] Comment on above: Recommended Anticoag [...] 11.1 s 9.0 - [address] [facility] No Panel Informationon 09-03 Interpretation and review of laboratory results Normal [facility] PROTIME AND APTTon aPTT Coag (Bld) [Time] 28.0 s Normal 20.0-30.5 [facility] Comment on above: Performed By: #### Rickey [id number] #### Radio Division Officer: ALEXX JAY ([id number]) [address] INR Coag (PPP) [Relative time] 1.0 {INR} Normal 0.9-1.1 [facility] Comment on above: Result Comment: Bharathi mmended [...] prevent Myocardial Infarction Performed By: #### L [id number] #### Radio Division Officer: ALEXX JAY ([id number]) [facility] ([facility]) [address] [place] [address] PT Coag (PPP) [Time] 11.1 s Normal 9.0-12.0 [facility] Comment on above: Performed By: #### L [id number] #### Radio Division Officer: ALEXX JAY ([id number]) [facility] ([facility]) [address] [place] [address] HCG ( test) Ql (U)o n 09-03-2023 Beta HCG ( test) Ql (U) 099050 [facility] Interpretation and review of laboratory results Normal [facility] NEGATIVE QC Pass [facility] POSITIVE QC Pass [facility] [employer] Preg Test, Ur Negative Negative [facility] Healt h [facility] Radiology Study observation (narrative) [facility] [employer] IDNon 09-03-2023 IDN Problem: Knowledge D eficit [...] of patient condition declining or worsening Normal [facility] Nursing Noteon 09-03-2023 Nursing Note Called report to H5 RN. Called and updated patient's mother. Normal [facility] Nursing Note Mother updated and a waiting a room assignment Normal [facility] Op Noteon 09-03-2023 Op Note Date: 09/03/2023 Loca tion: [facility] OR Name: Jerrica Suggs, : 1995, Diagnosis Pre-op Diagnosis * Epigastric pain [R10.13] Post-op Diagnosis * Epigastric pain [R10.13] Procedures LAPAROSCOPIC CHOLECYSTECTOMY 51196 - [place] LAPAROSCOPY SURG CHOLECYSTECTOMY Surgeons * Melvin Posey - Primary Procedure Summary Anesthesia: General ASA: II Estimated Blood Loss: 5 mL Drains: * None in log * Specimens ID Source Type Tests Collected By Collected At Frozen? Priority Lab ID 1 Gallbladder Tissue TISSUE EXAM Melvin Posey MD 09/03/23 1111 No Routine Description: GALLBLADDER Staff: Castings Drafter: Brenad Thompson RN Relief Castings Drafter: Sayra Najera RN Scrub Person: Andreea Fantasmasusiekaiden [...] hours if receiving Vancomycin or flouroquinolone) Normal [facility] Op Note MELVIN POSEY MD , F [facility], [facility] MINIMALLY INVASIVE & METABOLIC / BARIATRIC SURGERY [facility] OPERATIVE REPORT 09/03/2023 PATIENT: Jerrica Suggs DATE OF : 1995 PROCEDURE: 1. LAPAROSCOPIC CHOLECYSTECTOMY (75652) SURGEON: Melvin Posey MD DIRECTOR CRAFT CENTER: Tawny Leija MD PRE-OPERATIVE DIAGNOSES: Chronic cholecystitis [...] the entire duration of the procedure. Normal [facility] 36on 08-31-[address] Silva's note [...] patient's PTT at baseline is elevated. Normal [facility] [id number] 08-30-2023 [id number] Labs obtained on 1 a ttempt with 22 gauge needle at [facility] site. Patient tolerated well, site benign. Normal [facility] HEPATIC FUNCTION PANELon Albumin [Mass/Vol] 4.5 g/dL Normal 3.5-5.0 [facility] Comment on above: Performed By: #### L [id number] ####Radio Division Officer: ALEXX JAY ([id number])[facility])[address] [place] [address] ALP [Catalytic activity/Vol] 59 U/L Normal 38-126 [facility] Comment on above: Performed By: #### L [id number] ####Radio Division Officer: ALEXX JAY ([id number])[facility] ([facility])[address] [place] [address] ALT [Catalytic activity/Vol] 21 U/L Normal 0-34 [facility] Comment on above: Performed By: #### L [id number] ####Radio Division Officer: ALEXX JAY ([id number])[facility])[address] [place] [address] AST [Catalytic activity/Vol] 32 U/L Normal 15-46 [facility] Comment on above: Performed By: #### L [id number] ####Radio Division Officer: ALEXX JAY ([id number])[facility])[address] [place] [address] Bilirubin [Mass/Vol] 0.4 mg/dL Normal 0.2-1.3 [facility] Comment on above: Performed By: #### L [id number] ####Radio Division Officer: ALEXX JAY ([id number])[facility])[address] [place] [address] Bilirubin.indirect [Mass/Vol] 0.0 mg/dL Normal 0.0-0.3 [facility] Comment on above: Performed By: #### L [id number] ####Radio Division Officer: ALEXX JAY ([id number])[facility])[address] [place] [address] Protein [Mass/Vol] 7.7 g/dL Normal 6.3-8.2 [facility] Comment on above: Performed By: #### L [id number] ####Radio Division Officer: ALEXX JAY ([id number])[address] PREPROCINSon 08-30-2023 PREPROCINS Medication List Accurate [...] your scheduled surgery time. Please bring your [facility] Surgical folder and medication list [...] best for you, please speak with your PALLIATIVE CARE NURSE PRACTITIONER provider. [facility] PREPROCINS Medication List Accurate as of August [...] instructions given to you by Dr. TATY Msasey with an antibacterial soap such as Dial [...] your scheduled surgery time. Please bring your [facility] Surgical folder and medication list with you day of surgery. We encourage you to write down any questions you may have for the surgeon, anesthesiologist, or other members of the surgical team and bring it with you the day of surgery. Please bring photo ID and insurance information. Normal [facility] Progress Noteon 08-30-2023 Progress Note ADVANCED CARE PLANMEI QUANG Suggs : 1995 Primary Care Physician: Nunu Cortez MD The patient and/or family/surrogate voluntarily agreed to participate in ACP services. Patient?s cognitive capacity: A+Ox3 Code Status: [x] [FULL CODE - Continue all advanced life support: CPR,intubation,invasive procedures] [_] [DNR-CCA - DO NOT do CPR, intubation] [_] [DNR-SET RIDER - Comfort care only] [_] DNR form [...] patient and/or family/surrogate. Nasima Honeycutt APRN - [employer] AND WATER FILLER Acute care [facility] 08/30/2023, 1:[address] 08-27-[address] Silva's office updating of patient's schedule lap huyen on 09/02 with plans to keep her for observation. Requesting specific preop medications and dosing and specific postop recommendations for blood work/treatment. I spoke to our hematology department who recommends orders from patient's primary simulation specialist and would only recommend referral to our hematology in light of concerns or complications. LVM requesting callback to office with recommendations. [address] 08-13-[address] Posey and Dr. Umaña - plan will be to keep patient in the hospital for observation. I will contact Dr. Silva next week for specific instructions regarding preop dosing, etc. Spoke to patient and relayed the plan. She states that she required further treatment after a colonoscopy and is comfortable staying overnight in the hospital for obs. [address] 08-12-2023 36 I will contact her o nce I have a plan from hematology. [facility] 36 Patient called . She spoke to Dr Luke and is confused. She states the Dr Luke told her that we wanted her to see a [facility]. And that this may prolong her surgery date. I read the notes to her but she wants to speak to Jessee to get a clear picture of what the game plan is. She wants surgery soon and does not want for it to be prolonged [address] 08-10-2023 36 Call from patient - [...] be with her PCP. Patient expressed understanding. [place] [address] Called and lvm statt ing that we are waiting on a surgery date from Dr Posey [facility] 36 Jo, please conta ct patient and schedule lap huyen. I am still coordinating with heme/onc regarding perioperative management, but this should not prohibit scheduling. Thanks. [place] [address] Name of caller: Ginger griffin Contact phone number: [phone] Relationship to Patient: patient Provider: Dr. Posey [...] business hours to return their call: No [place] [id number] 36 Patient would like a call back with status of surgery and admission. Please call patient [place] [address]on 08-05-[address] Posey's desk for date [place] [address] Dr[address] Silva's office no te - received and in your box for review. [place] [address]on 08-04-[address] Silva's office note [...] work with Dr. Posey to schedule. Thanks! [place] [address] Rosario 's recommendations. Patient expressed understanding. Requests for Dr. Rosario to see her again if her PCP is unable to order testing. Patient instructed to call with any future questions. [place] [address] Son Rosario MD Y ou She is cleared to have surgery. 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 [facility] 36on 08-03-2023 36 Call from patient. Javier gr she already saw results and unclear why she needs to come in for appointment with Dr. Rosario when it says it is benign. Patient states she lives far away (30 minutes). Patient would just like clearance to have surgery with Dr. Posey. [facility] 36 Spoke with patient. Scheduled appt for 08/04/2023 [facility] 36 MD Astrid Coe MA Let see her in clinic. [facility] 36 ----- Message from A kylee Rosario MD sent at 08/02/2023 11:58 AM EDT ----- Let see her in clinic. [facility] 36on 08-02-2023 36 Patient called in [facility] that her Dr Bakari Silva [...] to have a Hematology Dr here at [facility] since her other is at [facility] if problems arise. DP [facility] No Panel InformationOrdered By: Anthony Ratliff on 07-16-2023 Ao prox AP 79.4 cm [facility] [employer] Work Phone: Ao prox PSV 79.4 cm/s [facility] [employer] Work Phone: Celiac Artery Inspiration PSV 223.1 cm/s [facility] Phone: Celiac PSV 225.1 cm/s [facility] [employer] Work Phone: Common Hepatic PSV 161.9 cm/s [facility] [employer] Work Phone: BUZZ PSV 100.2 cm/s [facility] [employer] Work Phone: Mid SMA PSV 57.4 cm/s [facility] [employer] Work Phone: Origin SMA PSV 220.0 cm/s [facility] Work Phone: Prox SMA PSV 176.0 cm/s [facility] Work Phone: Splenic PSV 43.2 cm/s [facility] Work Phone: No Panel Informationon 07-15 Mesenteric arteries are without evidence of significant stenosis. Limitations as described below. Mesenteric Mesenteric arteries are without evidence of significant stenosis. [place] Resistance Details A hassan scale, color Doppler imaging and spectral Doppler analysis ultrasound was performed. During the study longitudinal and transverse views were obtained. Pulsed wave doppler was performed. The exam was performed with the patient in the supine and decubitus position. Overall the study quality was technically difficult. Study was technically difficult due to: bowel gas. CV CPACS Office Visiton 07-07-2023 Follow-up visit [id number] Shelli Suggs michael Hernandez 1995 F Date Provider Department Center 07/07/2023 [id number]-EBPOCTC, SON [facility] HEP None Family History Problem Relation Age of Onset High Blood Pressure Mother Multiple sclerosis Mother Cancer Paternal Grandmother Family Status - Relation Status Age at Mother Alive Father Alive Maternal Grandmother Alive Maternal Grandfather Paternal Grandmother Paternal Grandfather Alive Level of Service:03500 [place] OFFICE/OUTPATIENT NEW MODERATE MDM 45 MINUTES Reason for Visit and Comments: abdominal mass [Other] - Abdominal mass Normal [facility] Office Visiton 07-05-2023 Follow-up visit [id number] Shelli Suggs michael Hernandez 1995 F Date Provider Department Center 07/05/2023 40971-JNGMELVIN SANDERS [facility] ALS None Family History Problem Relation Age of Onset High Blood Pressure Mother Multiple sclerosis Mother Cancer Paternal Grandmother Family Status - Relation Status Age at Mother Alive Father Alive Maternal Grandmother Alive Maternal Grandfather Paternal Grandmother Paternal Grandfather Alive Level of Service:58298 [place] OFFICE/OUTPATIENT NEW LOW MDM 30 MINUTES Reason for Visit and Comments: New Patient [542] - 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 FHx significant for MS in her [...] of pancreatic le (more content not included)... [facility] Progress Note Vascular US Mesenter ic Artery Duplex Complete is scheduled for: Date: 07/14/2023 Time: 8:20 am Location: [place] Information relayed to patient via mail, phone and [employer]. Orders in EPIC. Auth NAN [facility] CT ABDOMEN PELVIS W CONTRAST on 07-02-2023 [...] EST Patient Name: JERRICA SUGGS [facility] 1995 [id number] Exam Date/Time: 06/24/2023 23:57 Procedure: CT ABDOMEN [...] symptoms after having a HIDA scan at [facility] yesterday. Patient states that since the scan her extremities have been falling asleep. Patient is mostly complaining of abdominal pain, but wants to get the other strange symptoms checked out. Patient also states I feel like I have been getting electrocuted through my body today and that started this morning. Patient ambulatory through triage. [facility] CT ABDOMEN PELVIS WO IV CONT [facility] 07-02-2023 CT ABDOMEN PELVIS WO IV CONTRAST [...] EDT Patient Name: JERRICA SUGGS : 1995 [id number] Exam Date/Time: 07/06/2022 16:24 Procedure: CT ABDOMEN [...] of small (more content not included)... Normal [facility] 36on 06-28-2023 36 Pt seen a results vi a MyChart Thank you Normal [facility] 36 ----- Message from Home Jacinto PA-C sent at 06/23/2023 2:40 PM EST ----- HIDA scan shows normal biliary function in response to CCK. Normal [facility] CT Abdomen and Pelvis W cont rast Heather 06-25-2023 No acute abdominal o r pelvic findings to explain symptoms. 1.2 cm ovoid hypodense focus inferior to the mid pancreatic body, unchanged from prior exam. This may represent a prominent lymph node or peripancreatic cyst. Report Dictated on Electronically Signed By: Esvin Brower DO Electronically Signed Date/Time: 06/25/2023 12:15 AM [facility] Patient Name: JERRICA CEE : [...] lymphadenopathy: None. Osseous structures: No osseous abnormality. [facility] Esvin Brower DO - 06/25/2023 [...] Electronically Signed Date/Time: 06/25/2023 12:[address] [facility] [address] Abdomen and Pelvis W cont rast IVOrdered By: Esvin Brower on 06-25-2023 [facility] Work Phone: 36on 06-24-2023 36 Called and spoke wit h patient. She has already reached out to [facility] and was told someone will call her with 48hrs. Thank you Normal [facility] 36 Name of caller: Ginger griffin Contact phone number: [phone] (K) Relationship to Patient: patient Provider: Dr. Posey Practice: [facility] Chief Complaint/Reason for Call: Jerrica is requesting a call back to schedule a new patient appointment with 06/24/23 referral for Dx: Postprandial RUQ pain. Please contact Jerrica and advise. Best time of day caller can be reached: Any Patient advised that office/PCP has 24-48 business hours to return their call: Yes Normal [facility] CBC (HEMOGRAM)on 06-24-2023 Erythrocyte distribution width (RBC) [Ratio] 11.9 % Normal 11.5-15.0 [facility] Comment on above: Performed By: #### L [id number] ####Radio Division Officer: RADHA ANDRECER ([id number])[facility] ([facility])[address] Hematocrit (Bld) [Volume fraction] 43.0 % Normal 35.0-47.0 [facility] Comment on above: Performed By: #### L [id number] ####Radio Division Officer: RADHA CLAIRE ([id number])[facility] ([facility])[address] Hemoglobin (Bld) [Mass/Vol] 14.6 g/dL Normal 11.7-16.0 [facility] Comment on above: Performed By: #### L [id number] ####Radio Division Officer: RADHA CLAIRE ([id number])[facility] ([facility])[address] MCH (RBC) [Entitic mass] 30.4 pg Normal 26.0-34.0 [facility] Comment on above: Performed By: #### L [id number] ####Radio Division Officer: RADHA MCLEANMARÍA ELENA ([id number])[facility] ([facility])[address] [place] [address] MCHC 34.0 % Normal 30.5-36.0 [facility] Comment on above: Performed By: #### L [id number] ####Radio Division Officer: RADHA CLAIRE ([id number])[facility] ([facility])[address] MCV (RBC) [Entitic vol] 89.6 fL Normal 77.0-99.0 [facility] Comment on above: Performed By: #### L [id number] ####Radio Division Officer: RADHA CLAIRE ([id number])[facility] ([facility])[address] Platelet mean volume (Bld) [Entitic vol] 10.1 fL Normal 9.0-12.7 [facility] Comment on above: Performed By: #### L [id number] ####Radio Division Officer: RADHA CLAIRE ([id number])[facility] ([facility])[address] Platelets (Bld) [#/Vol] 259 10*3/uL Normal 140-440 [facility] Comment on above: Performed By: #### L [id number] ####Radio Division Officer: RADHA CLAIRE ([id number])[facility] ([facility])[address] RBC (Bld) [#/Vol] 4.80 10*6/uL Normal 3.80-5.20 [facility] Comment on above: Performed By: #### L [id number] ####Radio Division Officer: RADHA CLAIRE ([id number])[facility] ([facility])[address] [place] [address] WBC (Bld) [#/Vol] 8.7 10*3/uL Normal 3.6-10.7 [facility] Comment on above: Performed By: #### L [id number] ####Radio Division Officer: RADHA CLAIRE ([id number])[facility] ([facility])[address] [place] [address] CBC panel Auto (Bld)on Erythrocyte distribution width (RBC) [Ratio] 11.9 % 11.5 - 15.0 % [facility] Hematocrit (Bld) [Volume fraction] 43.0 % 35.0 - 47.0 % [facility] Hemoglobin (Bld) [Mass/Vol] 14.6 g/dL 11.7 - 16.0 g/dL [facility] Interpretation and review of laboratory results Normal [facility] MCH (RBC) [Entitic mass] 30.4 pg 26.0 - 34.[address] [facility] MCHC (RBC) [Mass/Vol] 34.0 % 30.5 - 36.0 % [facility] MCV (RBC) [Entitic vol] 89.6 fL 77.0 - 99.[address] [facility] Platelet mean volume (Bld) [Entitic vol] 10.1 fL 9.0 - 12.[address] [facility] Platelets (Bld) [#/Vol] 259 10*3/uL 140 - 440 10*3/uL [facility] RBC (Bld) [#/Vol] 4.80 10*6/uL 3.80 - 5.20 10*6/uL [facility] WBC (Bld) [#/Vol] 8.7 10*3/uL 3.6 - 10.7 10*3/uL [facility] COMPLETE URINALYSISon 2023 BILIRUBIN, TOTAL PRESENCE IN URINE Negative Normal Negative [facility] Comment on above: Performed By: #### L [id number] ####Radio Division Officer: RADHA CLAIRE ([id number])[facility] ([facility])[address] [place] [address] Clarity (U) Clear Normal Clear [facility] Comment on above: Performed By: #### L [id number] ####Radio Division Officer: RADHA CLAIRE ([id number])[facility] ([facility])[address] [place] [address] [place] Color (U) Light Yellow Normal Lt. Yellow [facility] Comment on above: Performed By: #### L [id number] ####Radio Division Officer: RADHA CLAIRE ([id number])[facility] ([facility])[address] [place] [address] [place] GLUCOSE (MG/DL) IN URINE Normal Normal Normal (<70) [facility] Comment on above: Performed By: #### L [id number] ####Radio Division Officer: RADHA CLAIRE ([id number])[facility] ([facility])[address] [place] [address] HEMOGLOBIN PRESENCE IN URINE Negative Normal Negative [facility] Comment on above: Performed By: #### L [id number] ####Radio Division Officer: RADHA CLAIRE ([id number])[facility] ([facility])[address] Ketones Ql (U) Negative Normal Negative [facility] Comment on above: Performed By: #### L [id number] ####Radio Division Officer: RADHA CLAIRE ([id number])[facility] MABRYRafal ([facility])[address] LEUKOCYTE ESTERASE PRESENCE IN URINE BY TEST STRIP Negative Normal Negative [facility] Comment on above: Performed By: #### L [id number] ####Radio Division Officer: RADHA CLAIRE ([id number])[facility] ([facility])[address] NITRITE PRESENCE IN URINE Negative Normal Negative [facility] Comment on above: Performed By: #### L [id number] ####Radio Division Officer: RADHA MCLEANMARÍA ELENA ([id number])[facility] ([facility])[address] pH (U) 7.0 [pH] Normal 5.0-8.0 [facility] Comment on above: Performed By: #### L AB347 ####Radio Division Officer: RADHA CLAIRE ([id number])[facility] ([facility])[address] Protein (U) [Mass/Vol] Negative Normal Negative [facility] Comment on above: Performed By: #### L [id number] ####Radio Division Officer: RADHA CLAIRE ([id number])[facility] ([facility])[address] Specific gravity (U) [Rel density] 1.014 Normal 1.005-1.03 0 [facility] Comment on above: Performed By: #### L [id number] ####Radio Division Officer: RADHA CLAIRE ([id number])[facility] ([facility])155 [address] [address] UROBILINOGEN (MG/DL) IN URINE Normal Normal Normal (0-1) [facility] Comment on above: Performed By: #### L [id number] ####Radio Division Officer: RADHA CLAIRE ([id number])[facility] ([facility])[address] COMPREHENSIVE METABOLIC PANE Ray 06-24-2023 Albumin [Mass/Vol] 4.0 g/dL Normal 3.5-5.0 [facility] Comment on above: Performed By: #### L [id number], LAB17, OUB240, LAB99 ####Radio Division Officer: RADHA CLAIRE ([id number])[facility] [place] (SB[facility])[address] ALP [Catalytic activity/Vol] 70 U/L Normal 38-126 [facility] Comment on above: Performed By: #### L [id number], LAB17, VPU834, LAB99 ####Radio Division Officer: RADHA CLAIRE ([id number])[facility] (SBHLAB)[address] ALT [Catalytic activity/Vol] 36 U/L High 0-34 [facility] Comment on above: Performed By: #### L AB143, LAB17, [id number], LAB99 ####Radio Division Officer: RADHA CLAIRE ([id number])[facility] ([facility] Anion gap [Moles/Vol] 9 mmol/L Normal 3-13 [facility] Comment on above: Performed By: #### L AB143, LAB17, [id number], LAB99 ####Radio Division Officer: RADHA CLAIRE ([id number])[facility] [place] (SB[facility])[address] AST [Catalytic activity/Vol] 30 U/L Normal 15-46 [facility] Comment on above: Performed By: #### L AB143, LAB17, SOL712, LAB99 ####Radio Division Officer: RADHA CLAIRE ([id number])[facility] (SBHLAB)[address] Bilirubin [Mass/Vol] 0.1 mg/dL Low 0.2-1.3 [facility] Comment on above: Performed By: #### L AB143, LAB17, PUV007, LAB99 ####Radio Division Officer: RADHA MCLEANMARÍA ELENA ([id number])[facility] (SBHLAB)[address] Calcium [Mass/Vol] 9.2 mg/dL Normal 8.4-10.4 [facility] Comment on above: Performed By: #### L AB143, LAB17, JBS711, LAB99 ####Radio Division Officer: RADHA CLAIRE ([id number])[facility] (SBHLAB)[address] Chloride [Moles/Vol] 102 mmol/L Normal 98-107 [facility] Comment on above: Performed By: #### Rickey AB143, LAB17, TQS265, LAB99 ####Radio Division Officer: RADHA CLAIRE ([id number])[facility] [place] (SBHLAB)[address] CO2 [Moles/Vol] 28 mmol/L Normal 22-30 [facility] Comment on above: Performed By: #### L AB143, LAB17, SLZ809, LAB99 ####Radio Division Officer: RADHA CLAIRE ([id number])[facility] (SBHLAB)[address] Creatinine [Mass/Vol] 0.74 mg/dL Normal 0.52-1.04 [facility] Comment on above: Performed By: #### L AB143, LAB17, CTG737, LAB99 ####Radio Division Officer: RADHA CLAIRE ([id number])[facility] [place] (SBHLAB)[address] GLOMERULAR FILTRATION RATE ML/MIN/1.73 SQ M.PREDICTED >90.0 Normal >60.0 [facility] Comment on above: Result Comment: Calc ulation based on the Chronic Kidney Disease Epidemiology Collaboration (CKD-EPI) equation refit without adjustment for race Performed By: #### L AB143, LAB17, IJB994, LAB99 ####Radio Division Officer: RADHA CLAIRE ([id number])[facility] [place] (SBHLAB)[address] Glucose [Mass/Vol] 123 mg/dL High 70-100 [facility] Comment on above: Performed By: #### L AB143, LAB17, ZIM744, LAB99 ####Radio Division Officer: RADHA CLAIRE ([id number])[facility] (SBHLAB)[address] Potassium [Moles/Vol] 3.5 mmol/L Normal 3.5-5.1 [facility] Comment on above: Performed By: #### L AB143, LAB17, LNR510, LAB99 ####Radio Division Officer: RADHA MCLEANMARÍA ELENA ([id number])[facility] (SBHLAB)[address] Protein [Mass/Vol] 7.1 g/dL Normal 6.3-8.2 [facility] Comment on above: Performed By: #### L AB143, LAB17, JCZ040, LAB99 ####Radio Division Officer: RADHA CLAIRE ([id number])[facility] (SBHLAB)[address] Sodium [Moles/Vol] 139 mmol/L Normal 135-145 [facility] Comment on above: Performed By: #### L AB143, LAB17, VQD862, LAB99 ####Radio Division Officer: RADHA CLAIRE ([id number])[facility] (SBHLAB)155 [place] [address] [place] Urea nitrogen [Mass/Vol] 8 mg/dL Normal 7-17 [facility] Comment on above: Performed By: #### L AB143, LAB17, DDO635, LAB99 ####Radio Division Officer: RADHA CLAIRE ([id number])[facility] (SBHLAB)[address] Abdomen and Pelvis W cont rast Heather 06-24-2023 Radiology Study observation (narrative) [facility] Comprehensive metabolic 1998 panelon 06-24-2023 Albumin [Mass/Vol] 4.0 g/dL 3.5 - 5.0 g/dL [facility] ALP [Catalytic activity/Vol] 70 U/L 38 - 126 U/L [facility] ALT [Catalytic activity/Vol] 36 U/L High 0 - 34 U/L [facility] Anion gap [Moles/Vol] 9 mmol/L 3 - 13 mmol/L [facility] AST [Catalytic activity/Vol] 30 U/L 15 - 46 U/L [facility] Bilirubin [Mass/Vol] 0.1 mg/dL Low 0.2 - 1 .3 mg/dL [facility] Calcium [Mass/Vol] 9.2 mg/dL 8.4 - 10. 4 mg/dL [facility] Chloride [Moles/Vol] 102 mmol/L 98 - 10 7 mmol/L [facility] CO2 [Moles/Vol] 28 mmol/L 22 - 30 mmol/L [facility] Creatinine [Mass/Vol] 0.74 mg/dL 0.52 - 1.04 mg/dL [facility] GFR/1.73 sq M.predicted MDRD (S/P/Bld) [Vol rate/Area] - PINF [facility] Comment on above: Calculation based on the Chronic Kidney Disease Epidemiology Collaboration (CKD-EPI) equation refit without adjustment for race Glucose [Mass/Vol] 123 mg/dL High 70 - 100 mg/dL [facility] Potassium [Moles/Vol] 3.5 mmol/L 3.5 - 5.1 mmol/L [facility] Protein [Mass/Vol] 7.1 g/dL 6.3 - 8.2 g/dL [facility] Sodium [Moles/Vol] 139 mmol/L 135 - 145 mmol/L [facility] Urea nitrogen [Mass/Vol] 8 mg/dL 7 - 17 mg/dL [facility] ED Nursing Noteon 06-24-2023 ED Nursing Note Per ED reg, patient states that the doctor is trying to poison her. Anyi Ruelas RN 06/24/23 2200 Normal [facility] ED Nursing Note Patient presents to the ED due to abdominal pain and other strange symptoms after having a HIDA scan at [facility] yesterday. Patient states that since the scan her extremities have been falling asleep. Patient is mostly complaining of abdominal pain, but wants to get the other strange symptoms checked out. Patient also states I feel like I have been getting electrocuted through my body today and that started this morning. Patient ambulatory through triage. [facility] ED Provider Noteon ED Provider Note EMERGENCY DEPARTMENT ENCOUNTER Pt Name: Jerriac Suggs Birthdate 1995 Date of evaluation: 06/24/2023 ED Provider: Ayad Fonseca APRN - [employer] I have evaluated this patient on my [...] normal. M (more content not included)... Normal [facility] HCG QUANTITATIVE BLOODon HCG QUANTITATIVE <2 Normal Females <=5 [facility] Comment on above: Result Comment: ORDE R [...] disease. Performed By: #### L AB143, LAB17, OSX612, LAB99 ####Radio Division Officer: RADHA CLAIRE ([id number])[facility] ([facility])[address] [place] [address] LACTIC ACID WITH REFLEXon Lactate [Moles/Vol] 1.5 mmol/L Normal 0.7-2.0 [facility] Comment on above: Performed By: #### L [id number] ####Radio Division Officer: RADHA CLAIRE ([id number])[facility] ([facility])[address] LIPASEon 06-24-2023 Lipase [Catalytic activity/Vol] 405 U/L High 23-300 [facility] Comment on above: Performed By: #### L AB143, LAB17, TOD465, LAB99 ####Radio Division Officer: RADHA CLAIRE ([id number])[facility] ([facility])[address] Laboratory - Chemistry and C hemistry - challengeon 06-24-2023 HCG.beta subunit Qn Females <=5 mIU/mL [facility] Lipase [Catalytic activity/Vol] 405 U/L High 23 - 300 U/L [facility] Magnesium [Mass/Vol] 1.9 mg/dL 1.6 - 2 .3 mg/dL [facility] Lactate [Moles/Vol] 1.5 mmol/L 0.7 - 2. 0 mmol/L [facility] MAGNESIUMon 06-24-2023 Magnesium [Mass/Vol] 1.9 mg/dL Normal 1.6-2.3 [facility] Comment on above: Performed By: #### L AB143, LAB17, DVO465, LAB99 ####Radio Division Officer: RADHA CLAIRE ([id number])[facility] ([facility])[address] [place] [address] Magnesium [Mass/Vol]on Interpretation and review of laboratory results Normal [facility] No Panel Informationon Values in [...] or monitor tumors or gestational trophoblastic disease. [facility] Interpretation and review of laboratory results Abnormal [facility] Interpretation and review of laboratory results Normal [facility] US ABDOMEN LIMITEDon 024 US ABDOMEN LIMITED [...] Signed Date/Time: 06/24/2023 11:03 PM EST Normal [facility] US Abdomen limitedon 024 1. No abnormality seen. Report Dictated on Electronically Signed By: Jeff James MD Electronically Signed Date/Time: 06/24/2023 11:03 PM EST [facility] Patient Name: JERRICA CEE : [...] 4.8 x 4.3 cm. Negative Nava sign. [facility] Jeff James MD - 06/24/2023 Patient Name: JERRICA SUGGS : 1995 [id number] Exam Date/Time: 06/24/2023 22:55 Procedure: US ABDOMEN [...] Electronically Signed Date/Time: 06/24/2023 11:03 PM EST [facility] [employer] Radiology Study observation (narrative) [facility] [employer] US Abdomen limitedOrdered By : Jeff James on 06-24-2023 [employer] Work Phone: Urinalysis complete panel (U )on 06-24-2023 Bilirubin Ql (U) Negative Negative mg/dL [facility] [employer] Clarity (U) Clear Clear [employer] Color (U) Light Yellow Lt. Yellow [facility] [employer] Glucose Ql (U) Normal Normal (<70) mg/dL [facility] [employer] Hemoglobin Ql (U) Negative Negative mg/dL [facility] Interpretation and review of laboratory results Normal [facility] Ketones (U) [Mass/Vol] Negative Negative mg/dL [facility] Leukocyte esterase Test strip Ql (U) Negative Negative Jeimy/uL [facility] Nitrite Ql (U) Negative Negative [facility] th pH (U) 7.0 [pH] 5.0 - 8.[address] [facility] Protein (U) [Mass/Vol] Negative Negative mg/dL [facility] Specific gravity (U) [Rel density] 1.014 1.005 - 1.030 [facility] Urobilinogen (U) [Mass/Vol] Normal Normal (0-1) mg/dL [facility] 36on 06-23-2023 36 Please advise Normal [facility] 36 Name of caller: Ginger griffin Contact phone number: [phone] Relationship to Patient: patient Provider: TREV Fernando Practice: [facility] Gastroenterology Chief Complaint/Reason for Call: Pt states [...] hours to return their call: No Normal [facility] NM Gallbladder Views W huyen cystokinin and W radionuclide Heather 06-23-2023 Normal biliary funct ion in response to CCK. Report Dictated on Electronically Signed By: Jeff Hart MD Electronically Signed Date/Time: 06/23/2023 2:33 PM [facility] Patient Name: JERRICA CEE : [...] normal range is 35 percent or greater. [facility] Jeff Hart MD - 06/23/2023 Patient Name: JERRICA SUGGS : 1995 [id number] Exam Date/Time: 06/23/2023 11:43 Procedure: NM HEPATOBILIARY [...] Electronically Signed Date/Time: 06/23/2023 2:[address] [facility] Radiology Study observation (narrative) [facility] [employer] NM Gallbladder Views W huyen cystokinin and W radionuclide IVOrdered By: Jeff Hart on 06-23-2023 [employer] Work Phone: Progress Noteon 06-23-2023 Progress Note HIDA scan shows norm al biliary function in response to CCK. Normal [facility] [employer] [facility] Absolute lymphocyte countOrd ered By: Branden Huang on 06-16-2023 Lymphocytes Auto (Unsp spec) [#/Vol] 1.66 10*3/uL 0.83-4.51 [facility] Automated lymphocyte count a s percentage of total leukocytesOrdered By: Branden Huang on 06-16-2023 Lymphocytes/100 WBC Auto (Unsp spec) 16.4 % 19-41 [facility] Basophil percentageOrdered B y: Branden Huang on 06-16-2023 Basophils/100 WBC (Bld) 0.6 % 0-1 [facility] Bilirubin [Mass/Vol] 0.50 mg/dL 0.20-1.00 [facility] Comment on above: For patients on eltr ombopag therapy, use of [employer] [place] TBIL is not recommended. Chloride [Moles/Vol] 108 mmol/L 98-107 [facility] Eosinophils/100 WBC (Bld) 2.8 % 0-5 [facility] Glucose [Mass/Vol] 86 mg/dL 74-106 [facility] Hemoglobin (Bld) [Mass/Vol] 15.2 g/dL 12.0-15.0 [facility] Monocytes/100 WBC (Bld) 5.7 % 0-10 [facility] Neutrophils (Bld) [#/Vol] 7.5 10*3/uL 2.0-7.7 [facility] Neutrophils/100 WBC (Bld) 74.1 % 47-70 [facility] Potassium [Moles/Vol] 3.6 mmol/L 3.5-5.1 [facility] Protein [Mass/Vol] 7.6 g/dL 6.4-8.2 [facility] Sodium [Moles/Vol] 139 mmol/L 136-145 [facility] WBC (Bld) [#/Vol] 10.2 10*3/uL 4.4-11.0 [facility] Determination of erythrocyte mean corpuscular volume (MCV)Ordered By: Branden Huang on 06-16-2023 MCV (RBC) [Entitic vol] 89.4 fL 81-99 [facility] Erythrocyte distribution wid th ratioOrdered By: Branden Huang on 06-16-2023 Erythrocyte distribution width (RBC) [Ratio] 11.9 % 11.6-14.6 [facility] Erythrocyte distribution wid th standard deviationOrdered By: Branden Huang on 06-16-2023 Erythrocyte distribution width (RBC) [Entitic vol] 38.6 fL 35.1-43.9 [facility] Hematocrit Auto (Bld) [Volum e fraction]Ordered By: Branden Huang on 06-16-2023 Hematocrit (Bld) [Volume fraction] 44.7 % 37-47 [facility] Immature granulocytes/100 WB C Auto (Bld)Ordered By: Branden Huang on 06-16-2023 Immature granulocytes/100 WBC (Bld) 0.400 % 0.0-0.9 [facility] Comment on above: IG% - Immature Granu locytes (promyelocytes, myelocytes and metamyelocytes) > 1% indicates that a LEFT SHIFT is Present. Laboratory - Chemistry and C hemistry - challengeOrdered By: Branden Huang on 06-16-2023 Albumin/Globulin [Mass ratio] 1.0 {ratio} 0.9-2.4 [facility] ALP [Catalytic activity/Vol] 68 U/L 45-117 [facility] ALT [Catalytic activity/Vol] 21 U/L 13-56 [facility] CO2 [Moles/Vol] 29.0 mmol/L 21.0-32.0 [facility] Globulin (S) [Mass/Vol] 3.8 g/dL 2.2-4.2 [facility] Lipase [Catalytic activity/Vol] 26 U/L 13-75 [facility] Comment on above: Please note:LIPASE r evised reference range effective 22. New Lipase methodology. Expected to produce lower values than the previous assay method. NEW Reference Range: 13 - 75 U/L Urea nitrogen/Creatinine [Mass ratio] 13.8 mg/mg 10-20 [facility] Laboratory - Hematology and Cell countsOrdered By: Branden Huang on 06-16-2023 MCH (RBC) [Entitic mass] 30.4 pg 27.0-32.0 [facility] MCHC (RBC) [Mass/Vol] 34.0 g/dL 32-36 [facility] Nucleated RBC/100 WBC (Bld) [Ratio] 0 % 0-5 [facility] Platelet mean volume (Bld) [Entitic vol] 10.9 fL 6.2-12.0 [facility] Platelets (Bld) [#/Vol] 260 10*3/uL 150-450 [facility] No Panel InformationOrdered By: Branden Huang on 06-16-2023 Estimated Creatinine Clearance Calc 114.49 ml/min [facility] Estimated GFR (MDRD) Amer 140 mL/min >60 [facility] Comment on above: GFR Calc Estimated GFR (MDRD) Non-Af Amer 116 mL/min >60 [facility] Comment on above: Non- GFR Calc RBC Auto (Bld) [#/Vol]Ordere d By: Branden Huang on 06-16-2023 RBC (Bld) [#/Vol] 5.00 10*6/uL 4.2-5.4 [facility] Serum or plasma calcium eran urement (mass/volume)Ordered By: Branden Huang on 06-16-2023 Calcium [Mass/Vol] 8.9 mg/dL 8.5-10.1 [facility] Serum or plasma creatinine m easurement (mass/volume)Ordered By: Branden Huang on 06-16-2023 Creatinine [Mass/Vol] 0.65 mg/dL 0.55-1.02 [facility] Comment on above: The validity of the calculated GFR & GFRAA in patients over 70 years has not been determined. Clinical correlation is essential. Serum or plasma urea nitroge n measurement (mass/volume)Ordered By: Branden Huang on 06-16-2023 Urea nitrogen [Mass/Vol] 9 mg/dL 7-18 [facility] Thin prep Papanicolaou smear with manual screeningOrdered By: Branden Huang on 06-16-2023 Thin prep Papanicolaou smear with manual screening 3.8 g/dL 3.2-5.0 [facility] Thin prep Papanicolaou smear with manual screening 18 U/L 15-37 [facility] Thin prep Papanicolaou smear with manual screening 2 5-15 [facility] NM Stomach Views for gastric emptying solid phase W radionuclide Justino 06-08-2023 Normal gastric emptying with solid meal. Report Dictated on Electronically Signed By: Jose Hurst MD Electronically Signed Date/Time: 06/08/2023 12:38 PM [facility] [employer] Patient Name: JERRICA CEE : 1995 [...] the stomach (normal 10 percent or less). [facility] Jose Hurst MD - 06/08/2023 Patient Name: [...] Electronically Signed Date/Time: 06/08/2023 12:[address] [facility] Radiology Study observation (narrative) [facility] NM Stomach Views for gastric emptying solid phase W radionuclide POOrdered By: Jose Hurst on 06-08-2023 [facility] Absolute lymphocyte countOrd ered By: Ventura Bah on 03-14-2023 Lymphocytes Auto (Unsp spec) [#/Vol] 2.13 10*3/uL 0.83-4.51 [facility] Basophil percentageOrdered B y: Ventura Bah on 03-14-2023 Basophil percentage 0 SEEN /hpf 0-5 [facility] Basophils/100 WBC (Bld) 0.4 % 0-1 [facility] Bilirubin [Mass/Vol] 0.70 mg/dL 0.20-1.00 [facility] Comment on above: For patients on eltr ombopag therapy, use of [employer] [place] TBIL is not recommended. Chloride [Moles/Vol] 103 mmol/L 98-107 [facility] Eosinophils/100 WBC (Bld) 2.0 % 0-5 [facility] Glucose [Mass/Vol] 93 mg/dL 74-106 [facility] Neutrophils (Bld) [#/Vol] 5.3 10*3/uL 2.0-7.7 [facility] Neutrophils/100 WBC (Bld) 64.3 % 47-70 [facility] Potassium [Moles/Vol] 3.2 mmol/L 3.5-5.1 [facility] Protein [Mass/Vol] 8.6 g/dL 6.4-8.2 [facility] Sodium [Moles/Vol] 139 mmol/L 136-145 [facility] WBC (Bld) [#/Vol] 8.2 10*3/uL 4.4-11.0 [facility] Beta hCG serum qualOrdered B y: Ventura Bah on 03-14-2023 Beta HCG ( test) Ql Negative [facility] Bilirubin Test strip Ql (U)O rdered By: Ventura Bah on 03-14-2023 Bilirubin Ql (U) Negative Negative [facility] Blood erythrocytes count (nu mber/volume)Ordered By: Ventura Bah on 03-14-2023 RBC (Bld) [#/Vol] 5.29 10*6/uL 4.2-5.4 [facility] Blood hemoglobin measurement (mass/volume)Ordered By: Ventura Bah on 03-14-2023 Hemoglobin (Bld) [Mass/Vol] 15.8 g/dL 12.0-15.0 [facility] Blood lymphocytes/100 leukoc ytesOrdered By: Ventura Bah on 03-14-2023 Lymphocytes/100 WBC (Bld) 26.0 % 19-41 [facility] Blood monocytes/100 leukocyt esOrdered By: Ventura Bah on 03-14-2023 Monocytes/100 WBC (Bld) 7.1 % 0-10 [facility] Blood platelet mean volumeOr dered By: Ventura Bah on 03-14-2023 Platelet mean volume (Bld) [Entitic vol] 11.0 fL 6.2-12.0 [facility] Determination of erythrocyte mean corpuscular volume (MCV)Ordered By: Ventura Bah on 03-14-2023 MCV (RBC) [Entitic vol] 86.0 fL 81-99 [facility] Direct bilirubinOrdered By: Ventura Bah on 03-14-2023 Bilirubin.direct [Mass/Vol] 0.19 mg/dL 0.00-0.30 [facility] Hematocrit Auto (Bld) [Volum e fraction]Ordered By: Ventuar Bah on 03-14-2023 Hematocrit (Bld) [Volume fraction] 45.5 % 37-47 [facility] Ketones Test strip Ql (U)Ord ered By: Ventura Bha on 03-14-2023 Ketones Ql (U) 15 mg/dl Negative [facility] Laboratory - Chemistry and C hemistry - challengeOrdered By: Ventura Bah on 03-14-2023 ALP [Catalytic activity/Vol] 66 U/L 45-117 [facility] ALT [Catalytic activity/Vol] 16 U/L 13-56 [facility] CO2 [Moles/Vol] 29.0 mmol/L 21.0-32.0 [facility] Globulin (S) [Mass/Vol] 4.2 g/dL 2.2-4.2 [facility] Lipase [Catalytic activity/Vol] 57 U/L 13-75 [facility] Comment on above: Please note:LIPASE r evised reference range effective 22. New Lipase methodology. Expected to produce lower values than the previous assay method. NEW Reference Range: 13 - 75 U/L Urea nitrogen/Creatinine [Mass ratio] 8.8 mg/mg 10-20 [facility] Laboratory - Hematology and Cell countsOrdered By: Ventura Bah on 03-14-2023 Erythrocyte distribution width (RBC) [Entitic vol] 37.0 fL 35.1-43.9 [facility] Erythrocyte distribution width (RBC) [Ratio] 11.8 % 11.6-14.6 [facility] Immature granulocytes/100 WBC (Bld) 0.200 % 0.0-0.9 [facility] Comment on above: IG% - Immature Granu locytes (promyelocytes, myelocytes and metamyelocytes) > 1% indicates that a LEFT SHIFT is Present. MCH (RBC) [Entitic mass] 29.9 pg 27.0-32.0 [facility] Nucleated RBC/100 WBC (Bld) [Ratio] 0 % 0-5 [facility] MCHC Auto (RBC) [Mass/Vol]Or dered By: Ventura Bah on 03-14-2023 MCHC (RBC) [Mass/Vol] 34.7 g/dL 32-36 [facility] Mucus LM Ql (Urine sed)Order ed By: Ventura Bah on 03-14-2023 Mucus Ql (Urine sed) 0 SEEN /hpf [facility] Nitrite Test strip Ql (U)Ord ered By: Ventura Bah on 03-14-2023 Nitrite Ql (U) Negative Negative [facility] No Panel InformationOrdered By: Ventura Bah on 03-14-2023 Estimated Creatinine Clearance Calc 76.82 ml/min [facility] Estimated GFR (MDRD) Amer 95 mL/min >60 [facility] Comment on above: GFR Calc Estimated GFR (MDRD) Non-Af Amer 79 mL/min >60 [facility] Comment on above: Non- GFR Calc Platelets bldOrdered By: Vernon Bah on 03-14-2023 Platelets (Bld) [#/Vol] 277 10*3/uL 150-450 [facility] Protein Test strip Ql (U)Ord ered By: Ventura Bah on 03-14-2023 Protein Ql (U) Negative Negative [facility] Serum or plasma albumin eran urement (mass/volume)Ordered By: Ventura Bah on 03-14-2023 Albumin [Mass/Vol] 4.4 g/dL 3.2-5.0 [facility] Serum or plasma calcium eran urement (mass/volume)Ordered By: Ventura Bah on 03-14-2023 Calcium [Mass/Vol] 9.6 mg/dL 8.5-10.1 [facility] Serum or plasma creatinine m easurement (mass/volume)Ordered By: Ventura Bah on 03-14-2023 Creatinine [Mass/Vol] 0.91 mg/dL 0.55-1.02 [facility] Comment on above: The validity of the calculated GFR & GFRAA in patients over 70 years has not been determined. Clinical correlation is essential. Serum or plasma urea nitroge n measurement (mass/volume)Ordered By: Ventura Bah on 03-14-2023 Urea nitrogen [Mass/Vol] 8 mg/dL 7-18 [facility] Squamous epithelial cells de tection in urine sediment by light microscopyOrdered By: Ventura Bah on 03-14-2023 Epithelial cells.squamous LM Ql (Urine sed) 0-5 SEEN /hpf 5-10 [facility] Thin prep Papanicolaou smear with manual screeningOrdered By: Ventura Bah on 03-14-2023 Thin prep Papanicolaou smear with manual screening 13 U/L 15-37 [facility] Thin prep Papanicolaou smear with manual screening 7 5-15 [facility] Urine blood detectionOrdered By: Ventura Bah on 03-14-2023 RBC Ql (U) Negative Negative [facility] RBC Ql (U) 0 SEEN /hpf 0-5 [facility] Urine clarityOrdered By: Vernon Bah on 03-14-2023 Clarity (U) Clear Clear [facility] Urine color determinationOrd ered By: Ventura Bah on 03-14-2023 Color (U) Yellow Yellow [facility] Urine glucose detectionOrder ed By: Ventura Bah on 03-14-2023 Glucose Ql (U) Normal mg/dl Normal [facility] Urine leukocyte esterase det ection by dipstickOrdered By: Ventura Bah on 11-19-2023 Leukocyte esterase Test strip Ql (U) Negative Negative [facility] Urine pHOrdered By: Ventura solitario on 03-14-2023 pH (U) 8.0 [pH] 5.0 - 8.0 [facility] Urine sediment bacteria coun t by microscopy (number/high power field)Ordered By: Ventura Bah on 03-14-2023 Bacteria LM.HPF (Urine sed) [#/Area] 0 /[HPF] None Seen [facility] Urine specific gravity measu rementOrdered By: Ventura Bah on 03-14-2023 Specific gravity (U) [Rel density] 1.010 1.002-1.03 0 [facility] Urobilinogen Auto test strip Ql (U)Ordered By: Ventura Bah on 03-14-2023 Urobilinogen Ql (U) Normal mg/dl Normal [facility] MR Brain WO and W contrast I Von 12-07-2022 Normal MRI examinati on of the brain. Report Dictated on Electronically Signed By: Surya Mathis MD Electronically Signed Date/Time: 12/07/2022 2:25 PM EDT [facility] [employer] Patient Name[facility] CEE [facility] 1995 [id number] Exam Date/Time: 12/07/2022 11:38 Procedure: MR BRAIN [...] sinus.. Mastoid air cells: Normal. Orbits: Normal. [facility] [employer] Surya Mathis MD - 12/07/2022 Patient Name: JERRICA SUGGS : 1995 [id number] Exam Date/Time: 12/07/2022 11:38 Procedure: MR BRAIN [...] Electronically Signed Date/Time: 12/07/2022 2:[address] [facility] Radiology Study observation (narrative) [facility] MR Brain WO and W contrast I VOrdered By: Surya Mathis on 12-07-2022 [facility] Work Phone: CBC W Auto Differential pane l (Bld)on 09-23-2022 Basophils (Bld) [#/Vol] <0.11 k/uL [facility] Basophils/100 WBC (Bld) 0.3 % [facility] Differential cell count method Nom (Bld) Auto [facility] Eosinophils (Bld) [#/Vol] 0.27 10*3/uL <0.46 k/uL [facility] Eosinophils/100 WBC (Bld) 3.4 % [facility] Erythrocyte distribution width (RBC) [Ratio] 11.7 % 11.5 - 15.0 % [facility] Hematocrit (Bld) [Volume fraction] 43.3 % 36.0 - 46.0 % [facility] Hemoglobin (Bld) [Mass/Vol] 15.3 g/dL 11.5 - 15.5 g/dL [facility] Immature granulocytes (Bld) [#/Vol] <0.10 k/uL [facility] Immature granulocytes/100 WBC (Bld) 0.3 % [facility] Lymphocytes (Bld) [#/Vol] 2.06 10*3/uL 1.00 - 4.00 k/uL [facility] Lymphocytes/100 WBC (Bld) 26.1 % [facility] MCH (RBC) [Entitic mass] 30.9 pg 26.0 - 34.0 pg [facility] MCHC (RBC) [Mass/Vol] 35.3 g/dL 30.5 - 36.0 g/dL [facility] MCV (RBC) [Entitic vol] 87.5 fL 80.0 - 100.0 fL [facility] Monocytes (Bld) [#/Vol] 0.61 10*3/uL <0.87 k/uL [facility] Monocytes/100 WBC (Bld) 7.7 % [facility] Neutrophils (Bld) [#/Vol] 4.92 10*3/uL 1.45 - 7.50 k/uL [facility] Neutrophils/100 WBC (Bld) 62.2 % [facility] Nucleated RBC (Bld) [#/Vol] <0.01 k/uL [facility] Nucleated RBC/100 WBC (Bld) [Ratio] 0.0 /100 WBC [facility] Platelet mean volume (Bld) [Entitic vol] 10.7 fL 9.0 - 12.7 fL [facility] Platelets (Bld) [#/Vol] 228 10*3/uL 150 - 400 k/uL [facility] RBC (Bld) [#/Vol] 4.95 10*6/uL 3.90 - 5.20 m/uL [facility] WBC (Bld) [#/Vol] 7.90 10*3/uL 3.70 - 11.00 k/uL [facility] Comprehensive metabolic 2000 panelon 09-23-2022 Albumin [Mass/Vol] 4.8 g/dL 3.9 - 4.9 g/dL [facility] ALP [Catalytic activity/Vol] 59 U/L 34 - 123 U/L [facility] ALT With P-5'-P [Catalytic activity/Vol] 16 U/L 7 - 38 U/L [facility] Anion gap [Moles/Vol] 13 mmol/L 9 - 18 mmol/L [facility] AST With P-5'-P [Catalytic activity/Vol] 20 U/L 13 - 35 U/L [facility] Bilirubin [Mass/Vol] 0.7 mg/dL 0.2 - 1 .3 mg/dL [facility] Calcium [Mass/Vol] 9.6 mg/dL 8.5 - 10. 2 mg/dL [facility] Chloride [Moles/Vol] 100 mmol/L 97 - 10 5 mmol/L [facility] CO2 [Moles/Vol] 25 mmol/L 22 - 30 mmol/L [facility] Creatinine [Mass/Vol] 0.78 mg/dL 0.58 - 0.96 mg/dL [facility] Estimated Glomerular Filtration Rate 108 mL/min/1.73m >=60 mL/min/1.7 3m [facility] Glucose [Mass/Vol] 104 mg/dL High 74 - 99 mg/dL [facility] Potassium [Moles/Vol] 3.3 mmol/L Low 3.7 - 5.1 mmol/L [facility] Protein [Mass/Vol] 7.9 g/dL 6.3 - 8.0 g/dL [facility] Sodium [Moles/Vol] 138 mmol/L 136 - 144 mmol/L [facility] Urea nitrogen [Mass/Vol] 7 mg/dL 7 - 21 mg/dL [facility] PLATELET FUNCTION SCon 09-23 Platelet function (closure time) collagen+ADP induced (Bld) [Time] 100 CT (seconds) <118 CT (seconds) [facility] Platelet function (closure time) collagen+EPINEPHrine induced (Bld) [Time] 122 CT (seconds) <194 CT (seconds) [facility] HCG ( test) Ql (U)o n 09-22-2022 Specific gravity (U) [Rel density] 1.025 1.005 - 1.030 [facility] HCG QUAL URon 09-22-2022 HCG ( test) Ql (U) Negative Negative [facility] ACTIVATED PTTon 08-28-2022 aPTT Coag (PPP) [Time] 36.1 s High 23.0 - 32.4 sec [facility] CBC W Auto Differential pane l (Bld)on 08-28-2022 Basophils (Bld) [#/Vol] 0.05 10*3/uL <0.11 k/uL [facility] Basophils/100 WBC (Bld) 0.6 % [facility] Differential cell count method Nom (Bld) Auto [facility] Eosinophils (Bld) [#/Vol] 0.52 10*3/uL High <0.46 k/uL [facility] Eosinophils/100 WBC (Bld) 5.8 % [facility] Erythrocyte distribution width (RBC) [Ratio] 11.8 % 11.5 - 15.0 % [facility] Hematocrit (Bld) [Volume fraction] 44.6 % 36.0 - 46.0 % [facility] Hemoglobin (Bld) [Mass/Vol] 15.5 g/dL 11.5 - 15.5 g/dL [facility] Immature granulocytes (Bld) [#/Vol] <0.10 k/uL [facility] Immature granulocytes/100 WBC (Bld) 0.2 % [facility] Lymphocytes (Bld) [#/Vol] 2.67 10*3/uL 1.00 - 4.00 k/uL [facility] Lymphocytes/100 WBC (Bld) 29.7 % [facility] MCH (RBC) [Entitic mass] 30.9 pg 26.0 - 34.0 pg [facility] MCHC (RBC) [Mass/Vol] 34.8 g/dL 30.5 - 36.0 g/dL [facility] MCV (RBC) [Entitic vol] 88.8 fL 80.0 - 100.0 fL [facility] Monocytes (Bld) [#/Vol] 0.61 10*3/uL <0.87 k/uL [facility] Monocytes/100 WBC (Bld) 6.8 % [facility] Neutrophils (Bld) [#/Vol] 5.12 10*3/uL 1.45 - 7.50 k/uL [facility] Neutrophils/100 WBC (Bld) 56.9 % [facility] Nucleated RBC (Bld) [#/Vol] <0.01 k/uL [facility] Nucleated RBC/100 WBC (Bld) [Ratio] 0.0 /100 WBC [facility] Platelet mean volume (Bld) [Entitic vol] 10.4 fL 9.0 - 12.7 fL [facility] Platelets (Bld) [#/Vol] 233 10*3/uL 150 - 400 k/uL [facility] RBC (Bld) [#/Vol] 5.02 10*6/uL 3.90 - 5.20 m/uL [facility] WBC (Bld) [#/Vol] 8.99 10*3/uL 3.70 - 11.00 k/uL [facility] Comprehensive metabolic 2000 panelon 08-28-2022 Albumin [Mass/Vol] 4.7 g/dL 3.9 - 4.9 g/dL [facility] ALP [Catalytic activity/Vol] 62 U/L 34 - 123 U/L [facility] ALT With P-5'-P [Catalytic activity/Vol] 13 U/L 7 - 38 U/L [facility] Anion gap [Moles/Vol] 10 mmol/L 9 - 18 mmol/L [facility] AST With P-5'-P [Catalytic activity/Vol] 19 U/L 13 - 35 U/L [facility] Bilirubin [Mass/Vol] 0.5 mg/dL 0.2 - 1 .3 mg/dL [facility] Calcium [Mass/Vol] 9.7 mg/dL 8.5 - 10. 2 mg/dL [facility] Chloride [Moles/Vol] 101 mmol/L 97 - 10 5 mmol/L [facility] CO2 [Moles/Vol] 28 mmol/L 22 - 30 mmol/L [facility] Creatinine [Mass/Vol] 0.74 mg/dL 0.58 - 0.96 mg/dL [facility] Estimated Glomerular Filtration Rate 115 mL/min/1.73m >=60 mL/min/1.7 3m [facility] Glucose [Mass/Vol] 93 mg/dL 74 - 99 mg/dL [facility] Potassium [Moles/Vol] 3.8 mmol/L 3.7 - 5.1 mmol/L [facility] Protein [Mass/Vol] 7.6 g/dL 6.3 - 8.0 g/dL [facility] Sodium [Moles/Vol] 139 mmol/L 136 - 144 mmol/L [facility] Urea nitrogen [Mass/Vol] 7 mg/dL 7 - 21 mg/dL [facility] FIBRINOGENon 08-28-2022 Fibrinogen Coag (PPP) [Mass/Vol] 285 mg/dL 200 - 400 mg/dL [facility] PT panel Coag (PPP)on 2022 INR Coag (PPP) [Relative time] 1.0 {INR} 0.9 - 1.3 [facility] PT Coag (PPP) [Time] 10.7 s 9.7 - 1 3.0 sec [facility] CBC W Auto Differential pane l (Bld)on 07-06-2022 Basophils (Bld) [#/Vol] 0.0 10*3/uL 0.0 - 0.2 10*3/uL [facility] [employer] Basophils/100 WBC (Bld) 0.4 % 0.0 - 2.0 % [facility] [employer] Eosinophils (Bld) [#/Vol] 0.2 10*3/uL 0.0 - 0.5 10*3/uL [facility] Eosinophils/100 WBC (Bld) 2.6 % 1.0 - 6.0 % [facility] [employer] Erythrocyte distribution width (RBC) [Ratio] 11.6 % 11.5 - 14.5 % [facility] [employer] Hematocrit (Bld) [Volume fraction] 42.7 % 35.0 - 47.0 % [facility] [employer] Hemoglobin (Bld) [Mass/Vol] 15.3 g/dL 11.7 - 16.0 g/dL [facility] [employer] Immature granulocytes (Bld) [#/Vol] 0.0 10*3/uL NINF - 0.0 10*3/uL [facility] [employer] Immature granulocytes/100 WBC (Bld) 0.3 % High NINF - 0.0 % [facility] [employer] Interpretation and review of laboratory results Abnormal [facility] [employer] Lymphocytes (Bld) [#/Vol] 2.6 10*3/uL 1.0 - 4.3 10*3/uL [facility] [employer] Lymphocytes/100 WBC (Bld) 27.8 % 20.0 - 40.0 % [facility] [employer] MCH (RBC) [Entitic mass] 30.9 pg 26.0 - 34.0 pg [facility] [employer] MCHC (RBC) [Mass/Vol] 35.8 % 32.0 - 36.0 % [facility] [employer] MCV (RBC) [Entitic vol] 86.3 fL 80.0 - 98.0 fL [facility] [employer] Monocytes (Bld) [#/Vol] 0.6 10*3/uL 0.0 - 0.8 10*3/uL [facility] [employer] Monocytes/100 WBC (Bld) 6.8 % 2.0 - 10.0 % [facility] [employer] Neutrophils (Bld) [#/Vol] 5.7 10*3/uL 1.8 - 7.0 10*3/uL [facility] Neutrophils/100 WBC (Bld) 62.1 % 40.0 - 80.0 % [facility] Platelet mean volume (Bld) [Entitic vol] 10.4 fL 7.4 - 12.4 fL [facility] [employer] Comment on above: MPV is a calculated measurement using platelet volume ratio Platelets (Bld) [#/Vol] 248 10*3/uL 140 - 440 10*3/uL [facility] [employer] RBC (Bld) [#/Vol] 4.95 10*6/uL 3.8 - 5.20 10*6/uL [facility] [employer] WBC (Bld) [#/Vol] 9.2 10*3/uL 3.6 - 10.7 10*3/uL [facility] CT Abdomen WO contraston 1. No acute intra-ab dominal process. 2. Soft tissue stranding and some specks of gas noted in the right gluteal region. Clinical correlation for a history of injection is recommended. Report Dictated on Electronically Signed By: Mendez Mathis Electronically Signed Date/Time: 07/06/2022 4:38 PM EDT [facility] Patient Name: JERRICA CEE : 1995 [id number] Exam Date/Time: 07/06/2022 16:24 Procedure: CT ABDOMEN [...] area as well (series 2, image 107). [facility] Mendez Mathis MD - 07/06/2022 Patient Name: JERRICA SUGGS : 1995 [facility] [id number] Exam Date/Time: 07/06/2022 16:24 Procedure: CT ABDOMEN [...] Electronically Signed Date/Time: 07/06/2022 4:38 PM EDT [facility] [employer] Radiology Study observation (narrative) [facility] [employer] CT Abdomen WO contrastOrdere d By: Mendez Mathis on 07-06-2022 [facility] [employer] Work Phone: Comprehensive metabolic 1998 panelon 07-06-2022 Albumin [Mass/Vol] 4.6 g/dL 3.5 - 5.0 g/dL [facility] [employer] ALP [Catalytic activity/Vol] 64 U/L 38 - 126 U/L [facility] [employer] ALT [Catalytic activity/Vol] 30 U/L 0 - 34 U/L [facility] [employer] Anion gap [Moles/Vol] 5 mmol/L 3 - 13 mmol/L [facility] AST [Catalytic activity/Vol] 35 U/L 15 - 46 U/L [facility] [employer] Bilirubin [Mass/Vol] 0.6 mg/dL 0.2 - 1 .3 mg/dL [facility] [employer] Calcium [Mass/Vol] 9.3 mg/dL 8.4 - 10. 4 mg/dL [facility] Chloride [Moles/Vol] 104 mmol/L 98 - 10 7 mmol/L [facility] CO2 [Moles/Vol] 29 mmol/L 22 - 30 mmol/L [facility] Creatinine [Mass/Vol] 0.70 mg/dL 0.52 - 1.04 mg/dL [facility] GFR/1.73 sq M.predicted MDRD (S/P/Bld) [Vol rate/Area] - PINF [facility] Comment on above: Calculation based on the Chronic Kidney Disease Epidemiology Collaboration (CKD-EPI) equation refit without adjustment for race Glucose [Mass/Vol] 80 mg/dL 70 - 100 mg/dL [facility] Interpretation and review of laboratory results Abnormal [facility] Potassium [Moles/Vol] 3.4 mmol/L Low 3.5 - 5.1 mmol/L [facility] Protein [Mass/Vol] 8.2 g/dL 6.3 - 8.2 g/dL [facility] Sodium [Moles/Vol] 139 mmol/L 135 - 145 mmol/L [facility] Urea nitrogen [Mass/Vol] 11 mg/dL 7 - 17 mg/dL [facility] Laboratory - Chemistry and C hemistry - challengeon 07-06-2022 Lipase [Catalytic activity/Vol] 38 U/L 23 - 300 U/L [facility] Laboratory - Chemistry and C hemistry - challengeOrdered By: Michelle Martell on 07-06-2022 Beta HCG ( test) Ql Negative Negative [facility] Comment on above: Please note: Very di lute urine specimens, as indicated by a low specific gravity, may not contain real estate representative levels of hCG. If is still suspected, a first morning urine specimen should be collected 48 hours later and tested. Beta HCG ( test) Ql (U) is the most common reason for HCG in urine, although choriocarcinoma, hydatidiform mole, and certain nontrophoblastic malignancies also result in detectable urinary HCG levels. Sensitivity = 20mIU/mL. [facility] Lipase [Catalytic activity/V ol]on 07-06-2022 Interpretation and review of laboratory results Normal [facility] No Panel Informationon 07-06 [facility] No Panel InformationOrdered By: Michelle Martell on 07-06-2022 [facility] Urinalysis complete panel (U )on 07-06-2022 Bacteria LM.HPF (Urine sed) [#/Area] Negative Negative /HPF [facility] Bilirubin Ql (U) Negative Negative mg/dL [facility] Clarity (U) Clear Clear [facility] Color (U) Yellow Lt. Yellow [facility] Epithelial cells.squamous LM.HPF (Urine sed) [#/Area] 0-2 [facility] Glucose Ql (U) Normal Normal (<70) mg/dL [facility] Hemoglobin Ql (U) Negative Negative mg/dL [facility] Interpretation and review of laboratory results Abnormal [facility] Ketones (U) [Mass/Vol] mg/dL Abnormal Negative mg/dL [facility] Leukocyte esterase Test strip Ql (U) Negative Negative Jeimy/uL [facility] Nitrite Ql (U) Negative Negative [facility] th pH (U) 6.0 [pH] 5.0 - 8.[address] [facility] Protein (U) [Mass/Vol] 20 mg/dL Abnormal Negative [facility] RBC LM.HPF (Urine sed) [#/Area] Negative [facility] Specific gravity (U) [Rel density] 1.028 1.005 - 1.030 [facility] Urobilinogen (U) [Mass/Vol] Normal Normal (0-1) mg/dL [facility] Volume, Urine 12 mL [facility] WBC LM.HPF (Urine sed) [#/Area] 0-2 [facility] US ABD RT UPPER QUADRANTon 0 06-10-2022 [facility] VWF GP1bM ACTIVITYon 021 VWF GP1bM ACTIVITY 76 IU/dL Normal 52 - 180 [facility] Comment on above: Result Comment: Inte rpretation [...] values in individuals who possess the common [id number].K1341O polymorphism, and may report higher levels than the VWF ristocetin cofactor assay in patients with type 2B VWD. # Saeed DELAROSA, et al. Haemophilia 2008; 14:171-232 This test was developed and its performance characteristics determined by [facility]. It has not been cleared or approved by the [place] Food and Drug Administration. This test is used for clinical purposes. It should not be regarded as investigational or for research. This laboratory is certified under the Clinical Laboratory Improvement Amendments (CLIA) as qualified to perform high complexity clinical laboratory testing. Performed By: #### V WF #### [employer] [address] [address] [place], [place] [id number] RISTOCETIN COFACTORon 2020 RISTOCETIN COFACTOR 57 % Normal 50-200 [facility] Comment on above: Performed By: #### R ISTC #### [facility] [address] [place], [place] [id number] PLATELET AGGREGATIONon 07-27 ADP 20 :ATP RELEASE 1.0 nM Normal 0.2 - 1.6 [facility] Comment on above: Performed By: #### P LAGG ####[facility] [address] ADP 20 MAX AGGREG 85 % MAX Normal 70 - 100 [facility] Comment on above: Performed By: #### P LAGG ####[facility] [id number], [place] [address] ADP MAX AGGREG 47 % MAX Low 70 - 100 [facility] Comment on above: Performed By: #### P LAGG ####[facility] [id number] [address] ADP:ATP RELEASE 0.2 nM Normal 0.2 - 1.6 [facility] Comment on above: Performed By: #### P LAGG ####[facility] [id number], [place] [address] ARACH MAX AGGREG 89 % MAX Normal 66 - 100 [facility] Comment on above: Performed By: #### P LAGG ####[facility] [id number] [address] ARACH:ATP RELEASE 1.90 nM High 0.00 - 1.30 [facility] Comment on above: Performed By: #### P LAGG ####[facility] [id number], [place] [address] COLLAGEN MAX AGGREG 98 % MAX Normal 70 - 100 [facility] Comment on above: Performed By: #### P LAGG ####[facility] [address] COLLAGEN:ATP RELEASE 1.30 nM Normal 0.40 - 1.90 [facility] Comment on above: Performed By: #### P LAGG ####[facility] [id number], [place] [address] EPINEPH 100 MAX AGGREG 9 % MAX Low 67 - 95 [facility] Comment on above: Performed By: #### P LAGG ####[facility] [id number], [place] [address] EPINEPH 100:ATP RELEASE 0.00 nM Low 0.30 - 1.70 [facility] Comment on above: Performed By: #### P LAGG ####[facility] [id number], [place] [address] EPINEPH MAX AGGREG 10 % MAX Low 67 - 95 [facility] Comment on above: Performed By: #### P LAGG ####[facility] [id number], [place] [address] EPINEPH:ATP RELEASE 0.00 nM Low 0.30 - 1.70 [facility] Comment on above: Performed By: #### P LAGG ####[facility] [place], [place] [address] [address] [address] INTERPRETATION ABNORMAL Normal [facility] Comment on above: Result Comment: SIGN IFICANT [...] MEDICATION HISTORY Performed By: #### P LAGG ####[facility] [address] PLT AGGREG REVIEW SEE BELOW Normal [facility] Comment on above: Result Comment: PERF ORMING PATHOLOGIST: DR KAE SILVA, Performed By: #### P LAGG ####[facility] [address] RISTO 1200 MAX AGG Canceled Normal [facility] Comment on above: Performed By: #### P LAGG ####[facility] [address] RISTO 1500 MAX AGG 87.0 % MAX Normal 75.0 - 100.0 [facility] Comment on above: Performed By: #### P LAGG ####[facility] [id number], [place] [address] RISTO 600 MAX AGG 5.0 % MAX Normal 0.0 - 26.0 [facility] Comment on above: Performed By: #### P LAGG ####[facility] [id number], [place] [address] RISTO 900 MAX AGG 83.0 % MAX Normal 0.0 - 90.0 [facility] Comment on above: Performed By: #### P LAGG ####[id number] [place] [address] FACTOR VIIon 07-26-2020 FACTOR VII 101 % Normal 50 - 150 [facility] Comment on above: Performed By: #### F AC7 #### [facility] [address] [place] [address] VON WILLEBRAND ANTIGENon VON WILLEBRAND ANTIGEN 76 % Normal 50 - 220 [facility] Comment on above: Performed By: #### V WFAC ####[id number] [place] [address] Clinic Note - Heme Onc-Benig n Heme [...] has seen Dr. Martinez from [facility] and [facility] for her VWD. Diagnosed with Von Willebrand's dx Type 1 at age 17 at [facility]. Was getting pre-op labs for T&A [...] Weight/Scale Type:Height: 25-Jul-2020 08:4092.8 kg / standing .2 cm 04-Jul-2020 10:0391.5 kg / standing tmidp646.2 cm Physical Exam: Constitutional: Looks well. awake/alert/oriented [...] 57.1 Lymphocyte (more content not included)... Normal [facility] Clinic Note - Intakeon 07-25 Clinic Note [...] Updated: 25-Jul-2020 09:07 by Nola Harvey) Normal [facility] COMPREHENSIVE PANELon 2020 Albumin [Mass/Vol] 4.4 g/dL Normal 3.4 - 5.0 [facility] Comment on above: Performed By: #### C MP #### [facility] [address] [place] [address] ALP [Catalytic activity/Vol] 62 U/L Normal 33 - 110 [facility] Comment on above: Performed By: #### C MP #### [facility] [address] [place] [address] ALT [Catalytic activity/Vol] 17 U/L Normal 7 - 45 [facility] Comment on above: Result Comment: Joann ents treated with Sulfasalazine may generate falsely decreased results for ALT. Performed By: #### C MP #### [facility] [address] [place] [address] Anion gap [Moles/Vol] 8 mmol/L Low 10 - 20 [facility] Comment on above: Performed By: #### C MP #### [facility] [address] [place] [address] AST [Catalytic activity/Vol] 17 U/L Normal 9 - 39 [facility] Comment on above: Performed By: #### C MP #### [facility] [address] [place] [address] Bilirubin [Mass/Vol] 0.3 mg/dL Normal 0.0 - 1.2 [facility] Comment on above: Performed By: #### C MP #### [facility] [address] [place] [address] Calcium [Mass/Vol] 9.2 mg/dL Normal 8.6 - 10.6 [facility] Comment on above: Performed By: #### C MP #### [facility] [address] [place] [address] Chloride [Moles/Vol] 106 mmol/L Normal 98 - 107 [facility] Comment on above: Performed By: #### C MP #### [facility] [address] [place] [address] Creatinine [Mass/Vol] 0.63 mg/dL Normal 0.50 - 1.05 [facility] Comment on above: Performed By: #### C MP #### [facility] [address] [place] [address] GFR- AM. >60 Normal >60 [facility] Comment on above: Result Comment: CALC ULATIONS OF ESTIMATED GFR ARE PERFORMED USING THE MDRD STUDY EQUATION FOR THE IDMS-TRACEABLE CREATININE METHODS. CLIN CHEM 2007;53:766-72 Performed By: #### C MP #### [facility] [address] [place] [address] GFR-NON AM. >60 Normal >60 [facility] Comment on above: Performed By: #### C MP #### [facility] [address] [place] [address] Glucose [Mass/Vol] 96 mg/dL Normal 74 - 99 [facility] Comment on above: Performed By: #### C MP #### [facility] [address] [place] [address] HCO3 (Bld) [Moles/Vol] 28 mmol/L Normal 21 - 32 [facility] Comment on above: Performed By: #### C MP #### [facility] [address] [place] [address] Potassium [Moles/Vol] 4.5 mmol/L Normal 3.5 - 5.3 [facility] Comment on above: Performed By: #### C MP #### [facility] [address] [place] [address] Protein [Mass/Vol] 6.9 g/dL Normal 6.4 - 8.2 [facility] Comment on above: Performed By: #### C MP #### [facility] [address] [place] [address] Sodium [Moles/Vol] 137 mmol/L Normal 136 - 145 [facility] Comment on above: Performed By: #### C MP #### [facility] [address] [place] [address] Urea nitrogen [Mass/Vol] 7 mg/dL Normal 6 - 23 [facility] Comment on above: Performed By: #### C MP #### [facility] [address] [place] [address] FERRITINon 07-05-2020 FERRITIN 43 ug/L Normal 8 - 150 [facility] Comment on above: Performed By: #### F ERRI #### [facility] [address] [place] [address] IRON + TIBCon 07-05-2020 % SATURATION 21 % Low 25 - 45 [facility] Comment on above: Performed By: #### I RONT #### [facility] [address] [place] [address] Iron [Mass/Vol] 71 ug/dL Normal 35 - 150 [facility] Comment on above: Performed By: #### I SANTA #### [facility] [address] [place] [address] TIBC 336 ug/dL Normal 240 - 445 [facility] Comment on above: Performed By: #### I SANTA #### [facility] [address] [place] [address] CBC AND DIFFERENTIALon 07-04 Basophils (Bld) [#/Vol] 0.04 10*3/uL Normal 0.00 - 0.10 [facility] Comment on above: Performed By: #### C BCDF #### [address] [address] Basophils/100 WBC (Bld) 0.5 % Normal 0.0 - 2.0 [facility] Comment on above: Performed By: #### C BCDF #### [address] [address] Eosinophils (Bld) [#/Vol] 0.35 10*3/uL Normal 0.00 - 0.70 [facility] Comment on above: Performed By: #### C BCDF #### [address] [address] Eosinophils/100 WBC (Bld) 4.1 % Normal 0.0 - 6.0 [facility] Comment on above: Performed By: #### C BCDF #### [address] [address] Erythrocyte distribution width (RBC) [Ratio] 12.5 % Normal 11.5 - 14.5 [facility] Comment on above: Performed By: #### C BCDF #### [address] [address] Hematocrit (Bld) [Volume fraction] 46.1 % High 36.0 - 46.0 [facility] Comment on above: Performed By: #### C BCDF #### [address] [address] Hemoglobin (Bld) [Mass/Vol] 15.3 g/dL Normal 12.0 - 16.0 [facility] Comment on above: Performed By: #### C BCDF #### [address] [address] Lymphocytes (Bld) [#/Vol] 2.59 10*3/uL Normal 1.20 - 4.80 [facility] Comment on above: Performed By: #### C BCDF #### [address] [address] Lymphocytes/100 WBC (Bld) 30.0 % Normal 13.0 - 44.0 [facility] Comment on above: Performed By: #### C BCDF #### [address] [address] MCHC (RBC) [Mass/Vol] 33.2 g/dL Normal 32.0 - 36.0 [facility] Comment on above: Performed By: #### C BCDF #### [address] [address] MCV (RBC) [Entitic vol] 91 fL Normal 80 - 100 [facility] Comment on above: Performed By: #### C BCDF #### [address] [address] Monocytes (Bld) [#/Vol] 0.72 10*3/uL Normal 0.10 - 1.00 [facility] Comment on above: Performed By: #### C BCDF #### [address] [address] Monocytes/100 WBC (Bld) 8.3 % Normal 2.0 - 10.0 [facility] Comment on above: Performed By: #### C BCDF #### [address] [address] Neutrophils (Bld) [#/Vol] 4.94 10*3/uL Normal 1.20 - 7.70 [facility] Comment on above: Result Comment: Perc ent differential counts (%) should be interpreted in the context of the absolute cell counts (cells/L). Performed By: #### C BCDF #### [address] [address] Neutrophils/100 WBC (Bld) 57.1 % Normal 40.0 - 80.0 [facility] Comment on above: Performed By: #### C BCDF #### [address] [address] Platelets (Bld) [#/Vol] 236 10*3/uL Normal 150 - 450 [facility] Comment on above: Performed By: #### C BCDF #### [address] [address] RBC 5.08 x10E12/L Normal 4.00 - 5.20 [facility] Comment on above: Performed By: #### C BCDF #### [address] [address] WBC (Bld) [#/Vol] 8.6 10*3/uL Normal 4.4 - 11.3 [facility] Comment on above: Performed By: #### C BCDF #### [address] [address] Clinic Note - Heme Onc-Benig n Heme [...] self-referred. Used to see Dr. Martinez from [facility] and [facility] for her VWD. Sees Dr Chávez with [facility] for kidney issues. Today, patient presents for initial consultation. Diagnosed with Von Willebrand's dx Type 1 at age 17 at [facility]. Was getting pre-op labs for T&A. [...] 04-Jul-2020 10:0391.5 kg / standing .2 cm Physical Exam: Constitutional: Well developed, awake/alert/oriented [...] self-referred. Used to see Dr. Martinez from [facility] and [facility] for her VWD. Sees Dr Chávez with [facility] for kidney issues. Today, patient presents for initial consultation/to establish care. Diagnosed with Von Willebrand's dx Type 1 at age 17 at [facility]. I reviewed patient's chart including bu (more content not included)... Normal [facility] Clinic Note - Intakeon 07-04 Clinic Note [...] Updated: 04-Jul-2020 10:10 by Wandy Mathews) Normal [facility] Add on test from HISon 04-27 Add on test from HIS Accepted Normal (In[facility] Comment on above: Result Comment: Spec imen available & acceptable for analysis. Performed By: #### H EMDF, BMP3, QWAL ####[address] [place] [address] Add on test from HIS Accepted Normal (In)[facility] Comment on above: Result Comment: Spec imen available & acceptable for analysis. Performed By: #### H EMDF, BMP3, QWAL ####[address] [place] [address] Basic Metabolic Panelon Calcium mass conc 10.1 mg/dL Normal 8.4-10.4 [facility] Comment on above: Performed By: #### B MP3, QWAL, HEMDF, MDIFF, MG3, TSH5, TROPN ####[address] [place] [address] Glucose mass conc 159 mg/dL High 70-100 [facility] Comment on above: Performed By: #### B MP3, QWAL, HEMDF, MDIFF, MG3, TSH5, TROPN ####[facility] [employer] [address] [facility] [place] [address] Urea nitrogen mass conc 6 mg/dL Low 7-20 [facility] Comment on above: Performed By: #### B MP3, QWAL, HEMDF, MDIFF, MG3, TSH5, TROPN ####[place] [address] [facility] [place] [address] Anion gap 3 molar conc 16 Normal [facility] Comment on above: Performed By: #### B MP3, QWAL, HEMDF, MDIFF, MG3, TSH5, TROPN ####[place] [address] [place] [address] CO2 molar conc 25 mmol/L Normal 22-30 [facility] Comment on above: Performed By: #### B MP3, QWAL, HEMDF, MDIFF, MG3, TSH5, TROPN ####[facility] [employer] [place] [address] [place] [address] Creatinine mass conc 0.62 mg/dL Normal 0.52-1.25 [facility] Comment on above: Performed By: #### B MP3, QWAL, HEMDF, MDIFF, MG3, TSH5, TROPN ####[place] [address] [facility] [place] [address] GFR/1.73 sq M predicted among blacks MDRD vol rate/area (S/P/Bld) mL/min/{1.73_m2} Normal >60 [facility] Comment on above: Performed By: #### B MP3, QWAL, HEMDF, MDIFF, MG3, TSH5, TROPN ####[facility] [employer] [address] [facility] [place] [address] GFR/1.73 sq M predicted among non-blacks MDRD vol rate/area (S/P/Bld) mL/min/{1.73_m2} Normal >60 [facility] Comment on above: Result Comment: Sour ce- MDRD equation with creatinine calibration to IDMS(NKDEP) eGFR not recommended for drug dose adjustment Performed By: #### B MP3, QWAL, HEMDF, MDIFF, MG3, TSH5, TROPN ####[facility] [facility] [place] [address] Potassium molar conc 2.9 mmol/L Low 3.5-5.1 [facility] Comment on above: Performed By: #### B MP3, QWAL, HEMDF, MDIFF, MG3, TSH5, TROPN ####[facility] [place] [address] Chloride molar conc 101 mmol/L Normal 98-107 [facility] Comment on above: Performed By: #### B MP3, QWAL, HEMDF, MDIFF, MG3, TSH5, TROPN ####[facility] [facility] [place] [address] Sodium molar conc 142 mmol/L Normal 135-145 [facility] Comment on above: Performed By: #### B MP3, QWAL, HEMDF, MDIFF, MG3, TSH5, TROPN ####[facility] [place] [address] CR Chest PA/LATon 04-27-2018 CR Chest PA/LAT Patient Name: JERRICA HERNANDEZ Diagnostic Radiology Exam Date/Time 04/26/2018 22:59:53 EST Exam CR Chest PA/LAT Ordering Physician KRYS DUMONT RYAN Accession Number [id number] CPT4 Codes 40582 () Reason For Exam cough Report CHEST [...] Transcribed Date and Time: 04/26/2018 11:07 Normal [facility] D-Dimer, Innovanceon 04-27-2 019 D-Dimer, Innovance 0.33 mg/L Normal 0.00-0.50 [facility] Comment on above: Result Comment: Inno hogn D-Dimer values of <0.50 mg/L FEU can be used incombination with a pre-test probability model (e.g. Well's)to exclude pulmonary embolism (PE) disease, as well as dario in the diagnosis of deep vein thrombosis (DVT). Performed By: #### H EMDF, BMP3, QWAL ####[place] [address] [place] [address] Drugs of Abuseon 04-27-2018 Phencyclidine (PCP), Ur Negative Normal [facility] Comment on above: Result Comment: The expected [...] Performed By: #### H EMDF, BMP3, QWAL ####[place] [address] [facility] [place] [address] Cocaine, Ur Negative Normal [facility] Comment on above: Performed By: #### H EMDF, BMP3, QWAL ####[facility] [facility] [place] [address] Opiates, Ur Negative Normal [facility] Comment on above: Performed By: #### H EMDF, BMP3, QWAL ####[place] [address] [place] [address] Amphetamines, Ur Negative Normal [facility] Comment on above: Performed By: #### H EMDF, BMP3, QWAL ####[place] [address] [place] [address] Methadone, Ur Negative Normal [facility] Comment on above: Performed By: #### H EMDF, BMP3, QWAL ####[place] [address] [place] [address] Benzodiazepines, Ur Negative Normal [facility] Comment on above: Performed By: #### H EMDF, BMP3, QWAL ####[place] [address] [facility] [place] [address] Barbiturates, Ur Negative Normal [facility] Comment on above: Performed By: #### H EMDF, BMP3, QWAL ####[place] [address] [place] [address] Oxycodone/Oxymorphine ,Ur Negative Normal [facility] Comment on above: Performed By: #### H EMDF, BMP3, QWAL ####[address] [place] [address] Hemogram w/ Autodiffon 04-27 Erythrocyte distribution width Auto Ratio (RBC) 13.1 % Normal 11.5-14.5 [facility] Comment on above: Performed By: #### B MP3, QWAL, HEMDF, MDIFF, MG3, TSH5, TROPN ####[address] [place] [address] Hematocrit Auto Volume Fraction (Bld) 45.8 % Normal 35.0-47.0 [facility] Comment on above: Performed By: #### B MP3, QWAL, HEMDF, MDIFF, MG3, TSH5, TROPN ####[address] [place] [address] Hemoglobin mass conc (Bld) 15.5 g/dL Normal 11.7-16.0 [facility] Comment on above: Performed By: #### B MP3, QWAL, HEMDF, MDIFF, MG3, TSH5, TROPN ####[address] [place] [address] MCH Auto Entitic mass (RBC) 29.4 pg Normal 26.0-34.0 [facility] Comment on above: Performed By: #### B MP3, QWAL, HEMDF, MDIFF, MG3, TSH5, TROPN ####[place] [address] [place] [address] MCHC Auto mass conc (RBC) 33.9 % Normal 32.0-36.0 [facility] Comment on above: Performed By: #### B MP3, QWAL, HEMDF, MDIFF, MG3, TSH5, TROPN ####[address] [place] [address] MCV Auto Entitic volume (RBC) 86.7 fL Normal 79.0-98.0 [facility] Comment on above: Performed By: #### B MP3, QWAL, HEMDF, MDIFF, MG3, TSH5, TROPN ####[address] [place] [address] Platelet mean volume Auto Entitic volume (Bld) 9.5 fL Normal 7.4-10.4 [facility] Comment on above: Performed By: #### B MP3, QWAL, HEMDF, MDIFF, MG3, TSH5, TROPN ####[address] [place] [address] Platelets Auto #/vol (Bld) 246 10*3/uL Normal 140-440 [facility] Comment on above: Performed By: #### B MP3, QWAL, HEMDF, MDIFF, MG3, TSH5, TROPN ####[address] [place] [address] RBC Auto #/vol (Bld) 5.28 10*6/uL High 3.80-5.20 [facility] Comment on above: Performed By: #### B MP3, QWAL, HEMDF, MDIFF, MG3, TSH5, TROPN ####[address] [place] [address] WBC Auto #/vol (Bld) 13.9 10*3/uL High 3.6-10.7 [facility] Comment on above: Performed By: #### B MP3, QWAL, HEMDF, MDIFF, MG3, TSH5, TROPN ####[address] [place] [address] Magnesiumon 04-27-2018 Magnesium mass conc 1.9 mg/dL Normal 1.6-2.3 [facility] Comment on above: Performed By: #### H EMDF, BMP3, QWAL ####[place] [address] [place] [address] Manual Diffon 04-27-2018 Bands 0 % Normal 0-3 [facility] Comment on above: Performed By: #### H EMDF, BMP3, QWAL ####[place] [address] [place] [address] Cells counted 100 Normal [facility] Comment on above: Performed By: #### H EMDF, BMP3, QWAL ####[facility] [employer] [place] [address] [place] [address] Abs Baso Cnt 0.1 10*3/uL Normal 0.0-0.2 [facility] Comment on above: Performed By: #### H EMDF, BMP3, QWAL ####[facility] [employer] [place] [address] [place] [address] Abs Eosin Cnt 0.0 10*3/uL Normal 0.0-0.5 [facility] Comment on above: Performed By: #### H EMDF, BMP3, QWAL ####[facility] [employer] [place] [address] [place] [address] Abs Lymph Cnt 1.1 10*3/uL Normal 1.1-4.5 [facility] Comment on above: Performed By: #### H EMDF, BMP3, QWAL ####[facility] [employer] [place] [address] [place] [address] Abs Monocyte Cnt 0.7 10*3/uL Normal 0.2-1.1 [facility] Comment on above: Performed By: #### H EMDF, BMP3, QWAL ####[facility] [employer] [place] [address] [place] [address] Abs Neutrophile Cnt 11.4 10*3/uL High 2.2-8.2 [facility] Comment on above: Performed By: #### H EMDF, BMP3, QWAL ####[facility] [employer] [place] [address] [place] [address] Atypical Lymphocytes 3 % Abnormal <1 [facility] Comment on above: Performed By: #### H EMDF, BMP3, QWAL ####[facility] [address] [facility] [place] [address] Basophils 1 % Normal 0-2 [facility] Comment on above: Performed By: #### H EMDF, BMP3, QWAL ####[facility] [address] [place] [address] Eosinophils 0 % Low 1-6 [facility] Comment on above: Performed By: #### H EMDF, BMP3, QWAL ####[facility] [employer] [address] [facility] [place] [address] Lymphocytes 8 % Low 20-40 [facility] Comment on above: Performed By: #### H EMDF, BMP3, QWAL ####[facility] [employer] [address] [place] [address] Metamyelocytes 1 % Abnormal <1 [facility] Comment on above: Performed By: #### H EMDF, BMP3, QWAL ####[facility] [employer] [address] [place] [address] Monocytes 5 % Normal 2-10 [facility] Comment on above: Performed By: #### H EMDF, BMP3, QWAL ####[facility] [employer] [address] [place] [address] RBC Morphology NORMAL Normal [facility] Comment on above: Performed By: #### H EMDF, BMP3, QWAL ####[facility] [employer] [address] [place] [address] Seg Neutrophils 82 % High 40-80 [facility] Comment on above: Performed By: #### H EMDF, BMP3, QWAL ####[facility] [address] [place] [address] RESPIRATORY PCR PANELon RESPIRATORY PCR PANEL RESPIRATORY PCR PA JAYCE --> Status: FPOSITIVE: Respiratory Syncytial Virus DETECTED.The [employer] Upper Respiratory Pathogens PCR Panel detects thefollowing targets:AdenovirusCoronavir us 229ECoronavirus NES1Dlumkkymyns DX17Ysmsfntmwvz RV23Vogig MetapneumovirusHuman Rhinovirus/EnterovirusInflu dallas AInfluenza BParainfluenza Virus 1Parainfluenza Virus 2Parainfluenza Virus 3Parainfluenza Virus 4Respiratory Syncytial VirusBordetella pertussisBordetella parapertussisChlamydia pneumoniaeMycoplasma pneumoniaeThe [employer] Upper Respiratory Pathogens PCR Panel detects thefollowing targets:AdenovirusCoronavir us 229ECoronavirus POZ8Lcipvdcikvp DL62Ydpyqehfqjy CU32Bftcw MetapneumovirusHuman Rhinovirus/EnterovirusInflu dallas AInfluenza BParainfluenza Virus 1Parainfluenza Virus 2Parainfluenza Virus 3Parainfluenza Virus 4Respiratory Syncytial VirusBordetella pertussisBordetella parapertussisChlamydia pneumoniaeMycoplasma pneumoniae Abnormal [facility] Comment on above: Order Comment: Speci men Source Comment:Nasopharyngeal Performed By: #### H EMDF, BMP3, QWAL ####[facility] [address] [facility] [place] [address] Rapid Flu A AND B, RNAon Rapid Influenza A Not Detected Normal Not Detected [facility] Comment on above: Performed By: #### H EMDF, BMP3, QWAL ####[facility] [address] [place] [address] Rapid Influenza B Not Detected Normal Not Detected [facility] Comment on above: Performed By: #### H EMDF, BMP3, QWAL ####[facility] [address] [place] [address] Thyroid Stim. Hormoneon Thyroid Stim. Hormone 0.547 u[IU]/mL Normal 0.46 5-4.68 0 [facility] Comment on above: Performed By: #### H EMDF, BMP3, QWAL ####[facility] [address] [place] [address] Troponin Ion 04-27-2018 Troponin I.cardiac mass conc ng/mL Normal 0.000-0.03 4 [facility] Comment on above: Result Comment: 0.04 6 - 0.400 = Indeterminate> 0.400 = Consider Myocardial Injury Performed By: #### H EMDF, BMP3, QWAL ####[place] [address] [place] [address] hCG Qual Pregon 04-27-2018 hCG Qual Preg Negative Normal [facility] Comment on above: Result Comment: REF RANGE:Negative .... < 3Questionable Rpt 48-72 HrPositive ..... > 10 Performed By: #### B MP3, QWAL, HEMDF, MDIFF, MG3, TSH5, TROPN ####[facility] [employer] [address] [place] [address] ED Provider Noteon 9 Protein mass conc [facility]Patient: Jerrica HernandezMRN: [id number]: 1995Date of Evaluation: 04/26/2018ED Supervising Physician: KANIKA [...] MD Acute Care SolutionsRowdy Redding MD04/27/18 0525 [facility] [place] [facility] Protein mass conc SHB DUGLAS Gupta [facility] dEPARTMENT eNCOUnterPt Name: Jerrica HernandezMRN: [id number] 1995Date of evaluation: 04/26/2018Provider: CHRIS Espinal have [...] PA/LAT Ordering Physician KRYS DUMONT RYANAccession Number [id number] CPT4 Codes 39822 () ReasonFor Exam cough Report CHEST X-RAY [...] within normal limits Narrative: Test Performed by [facility] [employer] [facility], [address] [place], [place], [id number] METABOLIC PANEL - Abnormal; Notable for the following: Potassium 2.9 (*) Glucose 159 (*) BUN 6 (*) All other components within normal limits Narrative: Test Performed by [facility], [address] [place] [id number] DIFFERENTIAL - Abnormal; Notable for the following: Seg Neutrophils 82 (*) Lymphocytes 8 (*) Atypical Lymphocytes 3 (*) Eosinophils 0 (*) Metamyelocytes 1 (*) Absolute Neut # 11.4 (*) All other components within normal limits Narrative: Test Performed by [facility], [address] [place] [id number] INFLUENZA A/B ANTIGENS Narrative: Test Performed by [facility], [address] [place] [id number] VIRUS PCR PANELHCG, SERUM, QUALITATIVE Narrative: Test Performed by [facility], [address] [place] [id number] ON LAB TEST Narrative: Test Performed by [facility], [address] [place] [id number] WITHOUT REFLEX Narrative: Test Performed by [facility], [address] [place] [id number] Narrative: Test Performed by [facility], [address] [place] [id number], QUANTITATIVE Narrative: Test Performed by [facility], [address] [id number] Narrative: Test Performed by [facility], [address] [place] [id number] WITHOUT REFLEXMAGNESIUMADD ON LAB TEST Narrative: CHECK [...] but occasionally words andphrases are mis-transcribed.)Form [id number] Dumnot APRN - [employer]ER (electronically signed)Emergency Medicine ProviderAttila Dumont APRN - TREV04/27/18 0247 [facility] [place] [facility] CT Maxillofacial w/ Contrast on 02-03-2018 CT Maxillofacial w/ Contrast Patient Name: JERRICA HERNANDEZ CT Exam Date/Time 01/12/2018 02:45:[address] Maxillofacial w/ Contrast Ordering Physician CAROLYNN NEVAREZ CHARLES G Accession Number [id number] CPT4 Codes 79659 (), Q9967 () Reason For Exam facial [...] Transcribed Date and Time: 01/12/2018 3:28 Normal [facility] Add on test from HISon 01-12 Add on test from HIS Accepted Normal [facility] Comment on above: Result Comment: Spec imen available & acceptable for analysis. Performed By: #### A DDON ####[place] [address] [facility] [place] [address] Basic Metabolic Panelon 12-25 Anion gap 3 molar conc 9 Normal [facility] Comment on above: Performed By: #### H EMDF, BMP3, QWAL ####[place] [address] [facility] [place] [address] Calcium mass conc 9.2 mg/dL Normal 8.4-10.4 [facility] Comment on above: Performed By: #### H EMDF, BMP3, QWAL ####[place] [address] [facility] [place] [address] CO2 molar conc 25 mmol/L Normal 22-30 [facility] Comment on above: Performed By: #### H EMDF, BMP3, QWAL ####[place] [address] [place] [address] Glucose mass conc 100 mg/dL Normal 70-100 [facility] Comment on above: Performed By: #### H EMDF, BMP3, QWAL ####[place] [address] [facility] [place] [address] Urea nitrogen mass conc 12 mg/dL Normal 7-20 [facility] Comment on above: Performed By: #### H EMDF, BMP3, QWAL ####[place] [address] [facility] [place] [address] Creatinine mass conc 0.67 mg/dL Normal 0.52-1.25 [facility] Comment on above: Performed By: #### H MINERVA WILSON3, QWAL ####[facility] [place] [address] [place] [address] GFR/1.73 sq M predicted among blacks MDRD vol rate/area (S/P/Bld) mL/min/{1.73_m2} Normal >60 [facility] Comment on above: Performed By: #### H MINERVA WILSON3, QWAL ####[place] [address] [place] [address] GFR/1.73 sq M predicted among non-blacks MDRD vol rate/area (S/P/Bld) mL/min/{1.73_m2} Normal >60 [facility] Comment on above: Result Comment: Sour ce- MDRD equation with creatinine calibration to IDMS(NKDEP) eGFR not recommended for drug dose adjustment Performed By: #### H MINERVA WILSON3, QWAL ####[facility] [place] [address] [place] [address] Chloride molar conc 104 mmol/L Normal 98-107 [facility] Comment on above: Performed By: #### H MINERVA WILSON3, QWAL ####[facility] [employer] [address] [place] [address] Potassium molar conc 4.1 mmol/L Normal 3.5-5.1 [facility] Comment on above: Performed By: #### H MINERVA WILSON3, QWAL ####[facility] [employer] [address] [place] [place] [address] Sodium molar conc 139 mmol/L Normal 137-145 [facility] Comment on above: Performed By: #### H MINERVA WILSON3, QWAL ####[facility] [address] [place] [address] ED Provider Noteon 8 Protein mass conc WENDIEB DUGLAS Gupta GENCY dEPARTMENT eNCOUnterPt Name: Jerrica HernandezMRN: [id number] 1995Date of evaluation: 01/11/2018Provider: Octavio SOMMER was [...] Temp Temp Source Pulse Resp SpO2 Height Uosdop133/83 98.2 ?F (36.8 ?C) Temporal 114 18 [...] (*) Absolute Neut # 7.5 (*) Absolute [place] # 0.9 (*) All other components within normal limits Narrative: Test Performed by [facility], [address] [place] JAIME [id number] METABOLIC PANEL Narrative: Test Performed by [facility], [address] [place] [id number] ON LAB TEST Narrative: Test Performed by [facility], [address] [place] [id number], SERUM, QUALITATIVE Narrative: Test Performed by [facility], [address] [place] JAIME [id number] other labs were within normal range or [...] (electronically signed)Emergency Medicine ProviderChaCAROLYNN Moser01/12/18 0250 Normal [facility] Hemogram w/ Autodiffon 01-12 Abs Baso Cnt 0.0 10*3/uL Normal 0.0-0.2 [facility] Comment on above: Performed By: #### H EMDF, BMP3, QWAL ####[facility] [place] [address] Abs Neutrophile Cnt 7.5 10*3/uL High 1.8-7.0 [facility] Comment on above: Performed By: #### H EMDF, BMP3, QWAL ####[facility] [place] [address] Basophils/100 WBC Auto (Bld) 0.4 % Normal 0.0-2.0 [facility] Comment on above: Performed By: #### H EMDF, BMP3, QWAL ####[facility] [place] [address] Eosinophils Auto #/vol (Bld) 0.3 10*3/uL Normal 0.0-0.5 [facility] Comment on above: Performed By: #### H EMDF, BMP3, QWAL ####[facility] [place] [address] Eosinophils/100 WBC Auto (Bld) 2.6 % Normal 1.0-6.0 [facility] Comment on above: Performed By: #### H EMDF, BMP3, QWAL ####[place] [address] [place] [address] Erythrocyte distribution width Auto Ratio (RBC) 13.7 % Normal 11.5-14.5 [facility] Comment on above: Performed By: #### H EMDF, BMP3, QWAL ####[place] [address] [place] [address] Granulocytes/100 WBC (Bld) 72.5 % Normal 40.0-80.0 [facility] Comment on above: Performed By: #### H EMDF, BMP3, QWAL ####[place] [address] [place] [address] Hematocrit Auto Volume Fraction (Bld) 42.2 % Normal 35.0-47.0 [facility] Comment on above: Performed By: #### H EMDF, BMP3, QWAL ####[place] [address] [place] [address] Hemoglobin mass conc (Bld) 14.3 g/dL Normal 11.7-16.0 [facility] Comment on above: Performed By: #### H EMDF, BMP3, QWAL ####[place] [address] [place] [address] Lymphocytes Auto #/vol (Bld) 1.6 10*3/uL Normal 1.0-4.3 [facility] Comment on above: Performed By: #### H EMDF, BMP3, QWAL ####[place] [address] [place] [address] Lymphocytes/100 WBC Auto (Bld) 15.6 % Low 20.0-40.0 [facility] Comment on above: Performed By: #### H EMDF, BMP3, QWAL ####[place] [address] [place] [address] MCH Auto Entitic mass (RBC) 29.8 pg Normal 26.0-34.0 [facility] Comment on above: Performed By: #### H EMDF, BMP3, QWAL ####[place] [address] [place] [address] MCHC Auto mass conc (RBC) 34.0 % Normal 32.0-36.0 [facility] Comment on above: Performed By: #### H EMDF, BMP3, QWAL ####[place] [address] [place] [address] MCV Auto Entitic volume (RBC) 87.5 fL Normal 79.0-98.0 [facility] Comment on above: Performed By: #### H EMDF, BMP3, QWAL ####[place] [address] [place] [address] Monocytes Auto #/vol (Bld) 0.9 10*3/uL High 0.0-0.8 [facility] Comment on above: Performed By: #### H EMDF, BMP3, QWAL ####[address] [place] [address] Monocytes/100 WBC Auto (Bld) 8.9 % Normal 2.0-10.0 [facility] Comment on above: Performed By: #### H EMDF, BMP3, QWAL ####[address] [place] [address] Platelet mean volume Auto Entitic volume (Bld) 9.1 fL Normal 7.4-10.4 [facility] Comment on above: Performed By: #### H EMDF, BMP3, QWAL ####[address] [place] [address] Platelets Auto #/vol (Bld) 206 10*3/uL Normal 140-440 [facility] Comment on above: Performed By: #### H EMDF, BMP3, QWAL ####[place] [address] [place] [address] RBC Auto #/vol (Bld) 4.82 10*6/uL Normal 3.80-5.20 [facility] Comment on above: Performed By: #### H EMDF, BMP3, QWAL ####[place] [address] [place] [address] WBC Auto #/vol (Bld) 10.4 10*3/uL Normal 3.6-10.7 [facility] Comment on above: Performed By: #### H EMDF, BMP3, QWAL ####[facility] [place] [address] hCG Qual Pregon 01-12-2018 hCG Qual Preg Negative Normal [facility] Comment on above: Result Comment: REF RANGE:Negative .... < 3Questionable Rpt 48-72 HrPositive ..... > 10 Performed By: #### H EMDF, BMP3, QWAL ####[facility] [place] [address] TOE AP/LAT/OBL RIGHTon 04-05 TOE AP/LAT/OBL RIGHT Performed at [facility] APPROVED BY: Demetrio Lawton MD EXAM [...] seen on the lateral view only. Normal [facility] Factor VIII Assayon 02-26-20 Factor VIII Interp See below Normal [facility] Comment on above: Performed By: #### F VIII ####[address] [address] Interp. by: See below Normal [facility] Comment on above: Result Comment: Ale Ritter M.D., PathologistNormal factor VIII activity. Performed By: #### F VIII ####[address] [address] von Willebrand Agon 02-26-20 17 von Willebrand Ag SEE BELOW Normal [facility] Comment on above: Result Comment: von Willebrand Ag 68 50-173 %Performing Laboratory:[facility] [place] [address] Performed By: #### V WAGX ####[address] [place] [address] Factor VIII Assayon 02-25-20 17 Factor VIII Assay 94.3 %Activity Normal 50.0-150.0 [facility] Comment on above: Performed By: #### F VIII ####[address] [address] Oncology Hemogram/Diffon Basophils Auto #/vol (Bld) 0.03 thou/cmm Normal 0.00-0.08 [facility] Comment on above: Result Comment: Test ing performed at: [facility], [address] [place] [address] Performed By: #### O CBCD ####[address] [address] Basophils/100 WBC Auto (Bld) 0.3 % Normal [facility] Comment on above: Performed By: #### O CBCD ####[address] [address] Eosinophils 0.24 thou/cmm Normal 0.00-0.36 [facility] Comment on above: Performed By: #### O CBCD ####[address] [address] Eosinophils/100 leukocytes 2.7 % Normal [facility] Comment on above: Performed By: #### O CBCD ####[address] [address] Erythrocyte distribution width Auto Ratio (RBC) 13.8 % Normal 11.8-14.5 [facility] Comment on above: Performed By: #### O CBCD ####[address] [address] Erythrocytes (RBC) 5.10 mil/cmm High 3.79-4.93 [facility] Comment on above: Performed By: #### O CBCD ####[address] [address] Hematocrit (HCT) 42.2 % Normal 34.7-43.3 [facility] Comment on above: Performed By: #### O CBCD ####[address] [address] Hemoglobin mass conc (Bld) 14.1 g/dL Normal 11.7-14.7 [facility] Comment on above: Performed By: #### O CBCD ####[facility] [place], [place] [address] Lymphocytes 2.72 thou/cmm Normal 0.68-2.93 [facility] Comment on above: Performed By: #### O CBCD ####[address] [address] Lymphocytes/100 leukocytes 30.2 % Normal [facility] Comment on above: Performed By: #### O CBCD ####[place] [address] MCH 27.6 pg Normal 27.4-32.8 [facility] Comment on above: Performed By: #### O CBCD ####[place] [address] MCHC mass conc (RBC) 33.4 % Normal 31.9-35.6 [facility] Comment on above: Performed By: #### O CBCD ####[place] [address] MCV 82.7 fL Normal 82.1-97.4 [facility] Comment on above: Performed By: #### O CBCD ####[address] [address] Monocytes 0.79 thou/cmm Normal 0.19-0.80 [facility] Comment on above: Performed By: #### O CBCD ####[place] [address] Monocytes/100 leukocytes 8.8 % Normal [facility] Comment on above: Performed By: #### O CBCD ####[place] [address] Platelet mean volume (PMV) 10.8 fL Normal 8.8-12.1 [facility] Comment on above: Performed By: #### O CBCD ####[place] [address] Platelets 259 thou/cmm Normal 150-370 [facility] Comment on above: Performed By: #### O CBCD ####[facility] [place], [place] [address] Seg Neutrophil 58.0 % Normal [facility] Comment on above: Performed By: #### O CBCD ####[facility] [place], [place] [address] Seg. Neut.# 5.22 thou/cmm Normal 1.35-7.21 [facility] Comment on above: Performed By: #### O CBCD ####[facility] [place], [place] [address] WBC (Leukocytes) 9.0 thou/cmm Normal 4.4-9.7 [facility] Comment on above: Performed By: #### O CBCD ####[address] [address] Vital Signs Date Time Vital Sign Value Performing Clinician Facility 08-31-2024 18:49-0400 Body temperature 98.7 [degF] Dr. Nunu Cortez MD Work Phone: [facility] 08-31-2024 18:49-0400 Diastolic blood pressure 73 mm[Hg] Dr. Nunu Cortez MD Work Phone: [facility] 08-31-2024 18:49-0400 Heart rate 84 /min Dr. Nunu Cortez MD Work Phone: [facility] 08-31-2024 18:49-0400 Respiratory rate 16 /min Dr. Nunu Cortez MD Work Phone: [facility] 08-31-2024 18:49-0400 SaO2% (BldA) [Mass fraction] 97 % Dr. Nunu Cortez MD Work Phone: [facility] 08-31-2024 18:49-0400 Systolic blood pressure 117 mm[Hg] Dr. Nunu Cortez MD Work Phone: [facility] 08-31-2024 13:36-0400 Body height 157.[address] Nunu Cortez MD Work Phone: [facility] 08-31-2024 13:36-0400 Body mass index (BMI) [Ratio] 31.8 kg/m2 Dr. Nunu Cortez MD Work Phone: [facility] 08-31-2024 13:36-0400 Body weight 78.[address] Nunu Cortez MD Work Phone: [facility] 05-31-2024 13:51-0500 Diastolic blood pressure 59 mm[Hg] Dr. Nunu Cortez MD Work Phone: [facility] 05-31-2024 13:51-0500 Systolic blood pressure 107 mm[Hg] Dr. Nunu Cortez MD Work Phone: [facility] 05-31-2024 13:00-0500 Heart rate 72 /min Dr. Nunu Cortez MD Work Phone: [facility] 05-31-2024 13:00-0500 Respiratory rate 18 /min Dr. Nunu Cortez MD Work Phone: [facility] 05-31-2024 13:00-0500 SaO2% (BldA) [Mass fraction] 100 % Dr. Nunu Cortez MD Work Phone: [facility] 05-31-2024 09:04-0500 Body mass index (BMI) [Ratio] 30.2 kg/m2 Dr. Nunu Cortez MD Work Phone: [facility] 05-31-2024 09:04-0500 Body temperature 98.9 [degF] Dr. Nunu Cortez MD Work Phone: [facility] 05-31-2024 09:04-0500 Body weight 75.[address] Nunu Cortez MD Work Phone: [facility] 09-15-2023 10:49-0400 Body height 157.5 cm Rebecca Lorenzo PA-C Work Phone: [employer] 09-15-2023 10:49-0400 Body mass index (BMI) [Ratio] 29.45 kg/m2 Rebecca Bj PA-C Work Phone: [facility] [employer] 09-15-2023 10:49-0400 Body temperature 97.81 [degF] Rebecca Bj PA-C Work Phone: [facility] [employer] 09-15-2023 10:49-0400 Body weight 73.03 kg Rebecca Bj PA-C Work Phone: [facility] [employer] 09-15-2023 10:49-0400 Diastolic blood pressure 59 mm[Hg] Rebecca Bj PA-C Work Phone: [facility] [employer] 09-15-2023 10:49-0400 Heart rate 107 /min Rebecca Bj PA-C Work Phone: [facility] [employer] 09-15-2023 10:49-0400 Systolic blood pressure 102 mm[Hg] Rebecca Bj PA-C Work Phone: [facility] [employer] 09-04-2023 09:31-0400 Body temperature 98.8 [degF] Melvin Posey MD Work Phone: [facility] [employer] 09-04-2023 09:31-0400 Diastolic blood pressure 80 mm[Hg] Melvin Posey MD Work Phone: [facility] 09-04-2023 09:31-0400 Heart rate 90 /min Melvin Posey MD Work Phone: [facility] 09-04-2023 09:31-0400 Respiratory rate 14 /min Melvin Posey MD Work Phone: [facility] [employer] 09-04-2023 09:31-0400 SaO2% (BldA) [Mass fraction] 96 % Melvin Posey MD Work Phone: [facility] 09-04-2023 09:31-0400 Systolic blood pressure 117 mm[Hg] Melvin Posey MD Work Phone: [facility] [employer] 09-03-2023 14:32-0400 Body height 157.5 cm Melvin Posey MD Work Phone: [facility] 09-03-2023 14:32-0400 Body mass index (BMI) [Ratio] 28.53 kg/m2 Melvin Posey MD Work Phone: [facility] 09-03-2023 14:32-0400 Body weight 70.76 kg Melvin Posey MD Work Phone: [facility] 08-02-2023 11:17-0400 Body height 156.2 cm Bakari Silva MD Work Phone: [facility] 08-02-2023 11:17-0400 Body temperature 97.2 [degF] Bakari Silva MD Work Phone: [facility] 08-02-2023 11:17-0400 Body weight 69.85 kg Bakari Silva MD Work Phone: [facility] 08-02-2023 11:17-0400 Diastolic blood pressure 72 mm[Hg] Bakari Silva MD Work Phone: [facility] 08-02-2023 11:17-0400 Heart rate 72 /min Bakari Silva MD Work Phone: [facility] 08-02-2023 11:17-0400 Respiratory rate 16 /min Bakari Silva MD Work Phone: [facility] 08-02-2023 11:17-0400 SaO2% (BldA) [Mass fraction] 100 % Bakari Silva MD Work Phone: [facility] 08-02-2023 11:17-0400 Systolic blood pressure 112 mm[Hg] Bakari Silva MD Work Phone: [facility] 07-05-2023 12:59-0400 Body height 157.5 cm Melvin Posey MD Work Phone: [facility] 07-05-2023 12:59-0400 Body mass index (BMI) [Ratio] 27.62 kg/m2 Melvin Posey MD Work Phone: [facility] 07-05-2023 12:59-0400 Body temperature 98.49 [degF] Melvin Posey MD Work Phone: [facility] [employer] 07-05-2023 12:59-0400 Body weight 68.49 kg Melvin Posey MD Work Phone: [facility] [employer] 07-05-2023 12:59-0400 Diastolic blood pressure 75 mm[Hg] Melvin Posey MD Work Phone: [facility] [employer] 07-05-2023 12:59-0400 Heart rate 116 /min Melvin Posey MD Work Phone: [facility] [employer] 07-05-2023 12:59-0400 Systolic blood pressure 107 mm[Hg] Melvin Posey MD Work Phone: [facility] [employer] 06-25-2023 00:02-0500 Diastolic blood pressure 58 mm[Hg] Jeff Purvis MD Work Phone: [facility] [employer] 06-25-2023 00:02-0500 Heart rate 106 /min Jeff Purvis MD Work Phone: [facility] [employer] 06-25-2023 00:02-0500 SaO2% (BldA) [Mass fraction] 97 % Jeff Purvis MD Work Phone: [facility] [employer] 06-25-2023 00:02-0500 Systolic blood pressure 106 mm[Hg] Jeff Purvis MD Work Phone: [facility] [employer] 06-24-2023 21:28-0500 Body temperature 98.49 [degF] Jeff Purvis MD Work Phone: [facility] [employer] 06-24-2023 21:28-0500 Respiratory rate 18 /min Jeff Purvis MD Work Phone: [facility] [employer] 06-23-2023 09:55-0500 Body height 160 cm [place] [employer] Work Phone: [facility] [employer] 06-23-2023 09:55-0500 Body mass index (BMI) [Ratio] 26.58 kg/m2 [place] [employer] Work Phone: [facility] [employer] 06-23-2023 09:55-0500 Body weight 68.04 kg [place] Scotter OUTLET MANAGER [employer] Work Phone: [facility] 06-16-2023 13:54-0500 Body temperature 97.4 [degF] [facility] 06-16-2023 13:54-0500 Diastolic blood pressure 65 mm[Hg] [facility] 06-16-2023 13:54-0500 Heart rate 89 /min [facility] 06-16-2023 13:54-0500 Respiratory rate 18 /min [facility] 06-16-2023 13:54-0500 SaO2% (BldA) [Mass fraction] 100 % [facility] 06-16-2023 13:54-0500 Systolic blood pressure 115 mm[Hg] [facility] 06-16-2023 11:04-0500 Body height 154.94 cm [facility] 06-16-2023 11:04-0500 Body mass index (BMI) [Ratio] 28.2 kg/m2 [facility] 06-16-2023 11:04-0500 Body weight 67.76 kg [facility] 05-26-2023 09:57-0500 Body height 154.9 cm [place] Tylerer OUTLET MANAGER [employer] Work Phone: [facility] 05-26-2023 09:57-0500 Body mass index (BMI) [Ratio] 28 kg/m2 [facility] [employer] Work Phone: [facility] 05-26-2023 09:57-0500 Body weight 67.22 kg [place] Forester OUTLET MANAGER [employer] Work Phone: [facility] 05-26-2023 09:57-0500 Diastolic blood pressure 73 mm[Hg] [place] Forester OUTLET MANAGER [employer] Work Phone: [facility] 05-26-2023 09:57-0500 Heart rate 73 /min [place] Tylerer OUTLET MANAGER - [employer] Work Phone: [facility] 05-26-2023 09:57-0500 Systolic blood pressure 104 mm[Hg] [place] Tylerer OUTLET MANAGER [employer] Work Phone: [facility] 03-14-2023 16:19-0500 Diastolic blood pressure 64 mm[Hg] [facility] 03-14-2023 16:19-0500 Heart rate 86 /min [facility] 03-14-2023 16:19-0500 Respiratory rate 16 /min [facility] 03-14-2023 16:19-0500 SaO2% (BldA) [Mass fraction] 99 % [facility] 03-14-2023 16:19-0500 Systolic blood pressure 116 mm[Hg] [facility] 03-14-2023 11:55-0500 Body mass index (BMI) [Ratio] 26.6 kg/m2 [facility] 03-14-2023 11:55-0500 Body temperature 97.5 [degF] [facility] 03-14-2023 11:55-0500 Body weight 68.22 kg [facility] 09-23-2022 10:56-0400 Body temperature 97 [degF] [facility] [place] 09-23-2022 10:56-0400 Body weight 73.[address] [facility] 09-23-2022 10:56-0400 Diastolic blood pressure 71 mm[Hg] [facility] 09-23-2022 10:56-0400 Heart rate 121 /min [facility] 09-23-2022 10:56-0400 Respiratory rate 18 /min [facility] [place] 09-23-2022 10:56-0400 Systolic blood pressure 126 mm[Hg] [facility] 09-22-2022 11:26-0400 Diastolic blood pressure 82 mm[Hg] Lyubov Begum MD Work Phone: [facility] 09-22-2022 11:26-0400 Heart rate 89 /min Lyubov Begum MD Work Phone: [facility] 09-22-2022 11:26-0400 Respiratory rate 20 /min Lyubov Begum MD Work Phone: [facility] 09-22-2022 11:26-0400 SaO2% (BldA) [Mass fraction] 100 % Lyubov Begum MD Work Phone: [facility] 09-22-2022 11:26-0400 Systolic blood pressure 121 mm[Hg] Lyubov Begum MD Work Phone: [facility] 09-22-2022 11:01-0400 Body temperature 97.3 [degF] Lyubov Begum MD Work Phone: [facility] 09-22-2022 07:39-0400 Body height 157.5 cm Lyubov Begum MD Work Phone: [facility] 09-22-2022 07:39-0400 Body weight 72.58 kg Lyubov Begum MD Work Phone: [facility] 08-24-2022 10:53-0400 Body height 157.5 cm Bakari Silva MD Work Phone: [facility] 08-24-2022 10:53-0400 Body temperature 98.8 [degF] Bakari Silva MD Work Phone: [facility] 08-24-2022 10:53-0400 Body weight 76.66 kg Bakari Silva MD Work Phone: [facility] 08-24-2022 10:53-0400 Diastolic blood pressure 75 mm[Hg] Bakari Silva MD Work Phone: [facility] 08-24-2022 10:53-0400 Heart rate 93 /min Bakari Silva MD Work Phone: [facility] 08-24-2022 10:53-0400 SaO2% (BldA) [Mass fraction] 99 % Bakari Silva MD Work Phone: [facility] 08-24-2022 10:53-0400 Systolic blood pressure 112 mm[Hg] Bakari Silva MD Work Phone: [facility] 07-06-2022 17:50-0400 Diastolic blood pressure 68 mm[Hg] Jay Dave MD Work Phone: [facility] 07-06-2022 17:50-0400 Heart rate 88 /min Jay Dave MD Work Phone: [employer] 07-06-2022 17:50-0400 Respiratory rate 14 /min Jay Dave MD Work Phone: [facility] [employer] 07-06-2022 17:50-0400 SaO2% (BldA) [Mass fraction] 100 % Jay Dave MD Work Phone: [facility] [employer] 07-06-2022 17:50-0400 Systolic blood pressure 104 mm[Hg] Jay Dave MD Work Phone: [facility] [employer] 07-06-2022 14:18-0400 Body temperature 99 [degF] Jay Dave MD Work Phone: [facility] [employer] 06-23-2022 11:17-0500 Body height 158.8 cm Jeff Purvis MD Work Phone: [employer] 06-23-2022 11:17-0500 Body mass index (BMI) [Ratio] 31.23 kg/m2 Jeff Purvis MD Work Phone: [employer] 06-23-2022 11:17-0500 Body temperature 96.8 [degF] Jeff Purvis MD Work Phone: [employer] 06-23-2022 11:17-0500 Body weight 78.7 kg Jeff Purvis MD Work Phone: [employer] 06-23-2022 11:17-0500 Diastolic blood pressure 73 mm[Hg] Jeff Purvis MD Work Phone: [employer] 06-23-2022 11:17-0500 Heart rate 90 /min Jeff Purvis MD Work Phone: [employer] 06-23-2022 11:17-0500 SaO2% (BldA) [Mass fraction] 100 % Jeff Purvis MD Work Phone: [employer] 06-23-2022 11:17-0500 Systolic blood pressure 116 mm[Hg] Jeff Purvis MD Work Phone: [employer] 06-02-2022 11:04-0500 Body height 157.5 cm Danyell Glenn PA-C Work Phone: [facility] 06-02-2022 11:04-0500 Body weight 74.84 kg Danyell Glenn PA-C Work Phone: [facility] 06-02-2022 11:04-0500 Diastolic blood pressure 78 mm[Hg] Danyell Glenn PA-C Work Phone: [facility] 06-02-2022 11:04-0500 Heart rate 104 /min Danyell Glenn PA-C Work Phone: [facility] 06-02-2022 11:04-0500 Systolic blood pressure 118 mm[Hg] Danyell Glenn PA-C Work Phone: [facility] Encounters Encounter Date Encounter Type Care Provider Facility Start: 10-23-2024 ambulatory [facility] Facility :[facility] Start: 10-20-2024 Encounter for other preprocedural examination [facility] Start: 09-26-2024 End: 09-26-2024 Telephone encounter Bakari iSlva MD Work Phone: [facility] Start: 09-25-2024 End: 09-26-2024 ambulatory Bakari Silva MD Work Phone: [facility] Comment on above: GI Bleed Start: 09-20-2024 ambulatory Mayra Saeed ty:LEELA Start: 09-04-2024 End: 09-04-2024 ambulatory Mayra Ren[place] [facility] Start: 09-01-2024 ambulatory MIKE [place] Facility:[facility] Start: 08-31-2024 End: 08-31-2024 Emergency department patient visit Dr. Nunu Cortez MD Work Phone: -Emergency Department Work Phone: Start: 08-30-2024 End: 08-30-2024 Telephone encounter Bakari Silva MD Work Phone: [facility] Start: 07-06-2024 End: 07-06-2024 Telephone encounter Esteban Sarmiento MD Work Phone: [facility] GA[facility]O DEPARTMENT Comment on above: Appointment Start: 06-19-2024 End: 06-22-2024 Telephone encounter Bakari Silva MD Work Phone: [facility] Start: 06-19-2024 End: 06-19-2024 ambulatory BAKARI SILVA Facility:[facility] Start: 06-05-2024 End: 06-05-2024 ambulatory Viki Fonseca RN [facility] Communication Start: 06-05-2024 End: 06-05-2024 Patient encounter procedure Viki Fonseca RN [facility] Clinical Communication Start: 05-31-2024 End: 05-31-2024 Emergency department patient visit Dr. Alonzo [place] -Emergency Department Work Phone: Start: 04-10-2024 End: 04-10-2024 Subsequent hospital visit by physician Izzy [facility] Work Phone: Radiology Comment on above: Acute cough [R05.1] Start: 04-10-2024 End: 04-10-2024 ambulatory NUNU Rafal [facility] Facility:[facility] Start: 12-17-2023 End: 12-17-2023 Telephone encounter Nunu Cortez MD Work Phone: [facility] Clinical Communication Comment on above: Appointment Start: 09-15-2023 End: 09-15-2023 ambulatory NUNU [facility] Start: 09-15-2023 End: 09-15-2023 Postop follow up visit related to original px Rebecca Lorenzo PA-C Work Phone: [facility] Advanced Laproscopic Surgery Comment on above: Encounter for postop erative care (Primary Dx) Start: 09-03-2023 End: 09-04-2023 Subsequent hospital visit by physician Melvin Posey MD Work Phone: [facility] Medical Surgical Unit MSU H5 Comment on above: Epigastric pain (Geri tray Dx); Von Willebrand disease (HCC) Start: 09-03-2023 End: 09-04-2023 Unknown MELVIN POSEY [facility] Start: 08-30-2023 End: 08-30-2023 ambulatory MELVIN POSEY [facility] Start: 08-27-2023 End: 08-27-2023 ambulatory Bakari Silva MD Work Phone: [facility] Hematology/Oncology Comment on above: Von Willebrand disea se Type I (Primary Dx); Encounter for preoperative assessment Start: 08-27-2023 End: 08-27-2023 Patient encounter status Bakari Silva MD Work Phone: [facility] Start: 08-27-2023 End: 08-27-2023 Telemedicine consultation with patient Bakari Silva MD Work Phone: [facility] Hematology/Oncology Start: 08-27-2023 Telephone encounter Bakari Silva MD Work Phone: [facility] General Hematology and Oncology Start: 08-18-2023 Admission to [facility] Rebecca Lorenzo PA-C Work Phone: [facility] Advanced Laproscopic Surgery Comment on above: Preop testing (Prima ry Dx) Start: 08-18-2023 ambulatory Rebecca kauffman PA-C Work Phone: [facility] Advanced Laproscopic Surgery Start: 08-18-2023 Patient encounter status Rebecca Lorenzo PA-C Work Phone: [facility] [employer] Work Phone: Start: 08-10-2023 ambulatory Bakari Silva MD Work Phone: [facility] General Hematology and Oncology Start: 08-10-2023 Patient encounter procedure Bakari Silva MD Work Phone: [facility] Hematology and Oncology Comment on above: Pre OP blood work Start: 08-10-2023 Patient encounter status Bakari Silva MD Work Phone: [facility] Start: 08-10-2023 Telephone encounter Melvin muniz MD Work Phone: [facility] Advanced Laproscopic Surgery Comment on above: Appointment Start: 08-03-2023 Telephone encounter Son ma MD Work Phone: [facility] General Surgery Comment on above: Results (MRI) Start: 08-02-2023 Telephone encounter Alyx Thorpe [facility] Advanced Laproscopic Surgery Comment on above: Question Start: 08-02-2023 End: 08-02-2023 ambulatory Bakari Silva MD Work Phone: [facility] Hematology and Oncology Comment on above: Von [...] Start: 07-28-2023 End: 07-28-2023 [facility] Start: 07-19-2023 ambulatory Bakari Silva MD Work Phone: [facility] Hematology/Oncology Comment on above: Gallbladder removal Start: 07-16-2023 End: 07-16-2023 Subsequent hospital visit by physician Rebecca Lorenzo PA-C Work Phone: [facility] Vascular Lab Comment on above: Postprandial epigast stewart pain Start: 07-16-2023 End: 07-16-2023 ambulatory REBECCA LORENZO [facility] Start: 07-07-2023 End: 07-07-2023 Office outpatient new 45 minutes Son Rosario MD Work Phone: [facility] General Surgery Comment on above: Postprandial epigast stewart pain; Elevated lipase; Pancreatic lesion Start: 07-07-2023 End: 07-07-2023 [facility] Start: 07-05-2023 End: 07-05-2023 Office outpatient new 30 minutes Melvin Posey MD Work Phone: [facility] Advanced Laproscopic Surgery Comment on above: Postprandial epigast stewart pain (Primary Dx); Elevated lipase; Pancreatic lesion; Weight loss Start: 07-05-2023 End: 07-05-2023 ambulatory MELVIN POSEY [facility] Start: 06-24-2023 End: 06-25-2023 Emergency department patient visit NUNU CORTEZ [facility] ED Comment on above: 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, diamond setter danny, 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); Elevated lipase; Nausea and vomiting, unspecified vomiting type Start: 06-24-2023 Telephone encounter Melvin muniz MD Work Phone: [facility] Advanced Laproscopic Surgery Comment on above: Appointment Request (06/24/23 referral for Dx: Postprandial RUQ pain) Start: 06-23-2023 End: 06-23-2023 Subsequent hospital visit by physician Mario Fernando APRN - [employer] Work Phone: [facility] Nuclear Medicine Comment on above: Postprandial RUQ kati n Start: 06-23-2023 End: 06-23-2023 ambulatory [facility] Start: 06-18-2023 Telephone encounter Bakari Silva MD Work Phone: [facility] Hematology/Oncology Start: 06-16-2023 End: 06-16-2023 Emergency department patient visit [facility]-Emergency Department Work Phone: Start: 06-08-2023 End: 06-08-2023 Subsequent hospital visit by physician Mario Fernando APRN - [employer] Work Phone: [facility] Nuclear Medicine Comment on above: Nausea and vomiting, unspecified vomiting type Start: 06-08-2023 End: 06-08-2023 ambulatory [facility] Start: 06-01-2023 Telephone encounter Mi Thorpe [facility] Gastroenterology Comment on above: Release of Informati on Start: 05-26-2023 End: 05-26-2023 Office outpatient new 45 minutes Mario Chandlernimo OUTLET MANAGER - [employer] Work Phone: [facility] Gastroenterology Comment on above: Nausea and vomiting, unspecified vomiting type (Primary Dx); Postprandial RUQ pain; Irritable bowel syndrome with both constipation and diarrhea; Unintentional weight loss Start: 04-22-2023 Telephone encounter Mario hodges OUTLET MANAGER - [employer] Work Phone: [facility] Gastroenterology Comment on above: New Patient (New Pt appt scheduled for 05/[facility] with Mignon Fernando. ) Start: 03-14-2023 End: 03-14-2023 Emergency department patient visit [facility]-Emergency Department Work Phone: Start: 03-13-2023 ambulatory Jeanine Ring RN [facility] Clinical Communication Start: 03-13-2023 Patient encounter procedure Jeanine Ring RN [facility] Clinical Communication Start: 02-13-2023 ambulatory Alyssa Covington RN [facility] Clinical Communication Start: 02-13-2023 Patient encounter procedure Alyssa Covington RN [facility] Clinical Communication Start: 02-03-2023 ambulatory Bakari Silva MD Work Phone: [facility] Hematology/Oncology Comment on above: Future Dental Work Start: 01-25-2023 End: 01-25-2023 ambulatory MD NO PRIMARY CARE [facility] Start: 01-25-2023 Telephone encounter Morenita HERNANDEZ [facility] Clinical Communication Comment on above: Records Start: 12-07-2022 End: 12-07-2022 Subsequent hospital visit by physician Nunu Cortez MD Work Phone: [facility] MRI Comment on above: Canceled (Other: Eloise m/Resource Maintenance) Start: 12-07-2022 End: 12-07-2022 Subsequent hospital visit by physician Nunu Cortez MD Work Phone: [facility] MRI Comment on above: Anesthesia of skin; Paresthesia of skin Start: 11-26-2022 Transcribe Orders Nunu Cortez MD Work Phone: [facility] Central Scheduling Comment on above: Anesthesia of skin ( Primary Dx); Paresthesia of skin Start: 09-23-2022 End: 09-23-2022 ambulatory Chair 1 [facility] Hematology/Oncology Comment on above: Von Willebrand disea se (HCC) (Primary Dx); Encounter for preoperative assessment; Von Willebrand disease Type I Von Willebrand disea se Type I (Primary Dx) Start: 09-23-2022 End: 09-23-2022 Patient encounter procedure Bakari Silva MD Work Phone: [facility] Start: 09-23-2022 End: 09-23-2022 Patient encounter status Chair [facility] Start: 09-22-2022 Telephone encounter Bakari Silva MD Work Phone: [facility] Hematology/Oncology Comment on above: Patient Update Start: 09-22-2022 End: 09-22-2022 Subsequent hospital visit by physician Lyubov Begum MD Work Phone: [facility] Comment on above: Bilious vomiting wit hout nausea [R11.14] Start: 09-04-2022 Preoperative state Xr Ursula Work Phone: [facility] Start: 09-04-2022 End: 09-04-2022 ambulatory Bakari Silva MD Work Phone: [facility] Hematology/Oncology Comment on above: Encounter for preope rative assessment; Von Willebrand disease Type I Start: 09-04-2022 End: 09-04-2022 Patient encounter status Bakari Silva MD Work Phone: [facility] Hematology/Oncology Start: 09-04-2022 End: 09-04-2022 Telemedicine consultation with patient Bakari Silva MD Work Phone: [facility] Start: 08-24-2022 Telephone encounter Bakari Silva MD Work Phone: [facility] Hematology and Oncology Comment on above: Appointment; Orders Start: 08-24-2022 End: 08-24-2022 ambulatory Bakari Silva MD Work Phone: [facility] Hematology and Oncology Comment on above: Von Willebrand disea se Type I Start: 08-24-2022 End: 08-24-2022 Patient encounter procedure Bakari Silva MD Work Phone: [facility] Start: 08-05-2022 Telephone encounter Danyell Elizabeth PA-C Work Phone: [facility] [place] Comment on above: Orders; Patient Ques tion Start: 07-23-2022 E-mail encounter chelle lion caregiver Danyell Elizabeth PA-C Work Phone: [facility] Start: 07-23-2022 Follow-up encounter Danyell Elizabeth PA-C Work Phone: [facility] Comment on above: Follow up Start: 07-07-2022 End: 07-07-2022 Office outpatient visit 15 minutes Jeff Purvis MD Work Phone: [facility] Oncology Comment on above: Von Willebrand disea se (Primary Dx) Start: 07-06-2022 End: 07-06-2022 Subsequent hospital visit by physician [facility] [address] Exam Room [address] [facility] [address] Comment on above: Arrived Start: 07-06-2022 End: 07-06-2022 Emergency department patient visit Jay Dave MD Work Phone: [facility] ED Comment on above: Generalized abdomina l pain (Primary Dx); Nausea and vomiting, unspecified vomiting type; Dehydration Start: 07-06-2022 Telephone encounter Danyell Elizabeth PA-C Work Phone: [facility] Comment on above: Patient Update Start: 06-30-2022 Telephone encounter Leslie Perales hand cloth folder Comment on above: Appointment Reschedu led (Spoke with Dr. Purvis's office at [facility] regarding scheduling patient for EGD & colon after IV infusion of DDAVP for Von Willebrand. Dr. Puvris's office will call to coordinate schedules.) Start: 06-29-2022 Telephone encounter Danyell Elizabeth PA-C Work Phone: [facility] Comment on above: Orders OTHER Start: 06-25-2022 Refill Danyell lyles PA-C Work Phone: [facility] Comment on above: Refill Request Start: 06-23-2022 End: 06-23-2022 Office outpatient new 60 minutes Jeff Purvis MD Work Phone: [facility] Oncology Comment on above: Von Willebrand disea se (Primary Dx) Start: 06-10-2022 End: 06-10-2022 Subsequent hospital visit by physician [facility] Work Phone: Radiology Comment on above: Bilious vomiting wit h nausea [R11.14] Start: 06-08-2022 ambulatory Danyell Baig rafal PERSON Work Phone: [facility] [place] Comment on above: New medicines Start: 06-02-2022 End: 06-02-2022 Patient encounter procedure Danyell Glenn PERSON Work Phone: [facility] [place] Comment on above: Bilious vomiting wit h nausea (Primary Dx); Generalized abdominal pain; Diarrhea, unspecified type; Rectal bleeding Start: 01-15-2020 End: 01-15-2020 Telephone encounter Dacia Mignon (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 And Truck Driver [employer]) Linnea Work Phone: [facility] Hematology/Oncology Comment on above: Trauma Start: 04-26-2018 Emergency department patient visit [facility] Start: 01-12-2018 Emergency department patient visit [facility] Start: 12-24-2017 Emergency department patient visit [facility] Start: 09-27-2017 Ambulatory MIKAYLA H REHMUS Facilit y:[facility] Start: 04-05-2017 End: 04-05-2017 Emergency department patient visit GORDON BANUELOS Facility:[facility] Start: 02-24-2017 End: 02-25-2017 Ambulatory DACIA YARBROUGH Facility:[facility] Start: 02-19-2017 Ambulatory MIKAYLA H REHMUS Facilit y:[facility] Procedures Date Procedure Procedure Detail Performing Clinician [...] exam ches t 2 views Dmitry Galvan OUTLET MANAGER.[employer] Work Phone: Start: 09-04-2023 Basic metabolic pane l calcium total Tawny Leija MD Work Phone: Start: 09-03-2023 End: 09-03-2023 Laparoscopy surg cholecystectomy Melvin Posey MD Work Phone: Start: 09-03-2023 Urine test visual color cmprsn meths Pushpa Capone OUTLET MANAGER - [employer] Work Phone: Start: 07-16-2023 Dup-scan artl nirmala abdl/pel/scrot&/rpr orgn lmt Rebecca Lorenzo PA-C Work Phone: Start: 06-24-2023 Ct abdomen & pelvis w/contrast material Ayad Fonseca OUTLET MANAGER - [employer] Work Phone: Start: 06-24-2023 Us abdominal real ti me w/image limited Ayad Fonseca OUTLET MANAGER - [employer] Work Phone: Start: 06-24-2023 Urinalysis complete panel - Urine Ayad Fonseca OUTLET MANAGER - [employer] Work Phone: Start: 06-24-2023 Urnls dip stick/tabl et rgnt auto w/o microscopy Ayad Fonseca OUTLET MANAGER - [employer] Work Phone: Start: 06-24-2023 Comprehensive metabo lic panel Ayad Fonseca OUTLET MANAGER - [facility] Work Phone: Start: 06-23-2023 Hepatobil syst imag inc gb w/pharma intervenj Mario Fernando OUTLET MANAGER - [facility] Work Phone: Start: 06-08-2023 [facility]: Start: 03-14-2023 Computed tomography of [...] for Adults (1 - 1-dose 75+ series) [facility] Start: 2056 RSV Immunization aged 60 or older (1 - 1-dose 60+ series) RSV Immunization aged 60 or older (1 - 1-dose 60+ series) [facility] Start: 01-31-2046 Zoster Vaccines (1 of 2) Zoster Vaccines (1 of 2) [facility] Start: 05-11-2026 DTaP/Tdap/Td Vaccines (2 - Td or Tdap) DTaP/Tdap/Td Vaccines (2 - Td or Tdap) [facility] Start: 05-11-2026 Urine microalbumin profile DTaP,Tdap,Td Vaccine (2 - Td or Tdap) [facility] Start: 12-25-2024 Influenza vaccination Influenza Vaccine (Season Ended) [facility] Start: 06-19-2024 End: 09-18-2024 VON WILLEBRAND DX PANEL VON WILLEBRAND DX PANEL Lab Routine Von Willebrand disease (HCC) Expected: 06/19/2024, Expires: 09/18/2024 [facility] Work Phone: Comment on above: Expected: 06/19/2024, Expires: Start: 06-19-2024 End: 09-18-2024 VON WILLEBRAND DX PNL (LIMITED) [facility] Comment on above: Expected: 06/19/2024, Expires: Start: 05-31-2024 [facility] Start: 05-31-2024 Enteric precautions [facility] Start: 12-26-2023 Covid-19 Vaccine ( season) Covid-19 Vaccine ( season) [facility] Start: 12-26-2023 Influenza vaccination Influenza Vaccine (#1) [facility] Start: 09-15-2023 End: 09-15-2023 Patient encounter procedure 09/15/2023 1:30 PM EDT Office Visit [facility] Advanced Laproscopic Surgery [address] [place] [address] [facility] Start: 09-03-2023 End: 09-03-2023 Admission to same day surgery center 09/03/2023 11:30 AM EDT - 09/03/2023 1:00 PM EDT Surgery [facility] MAIN OR [address] [place] [phone] Melvin Posey MD [address] [facility] [address] [place], [place] [id number] LAPAROSCOPIC CHOLECYSTECTOMY POSSIBLE OPEN [61739 (CPT )] [facility] OR Comment on above: LAPAROSCOPIC CHOLECYSTECTOMY POSSIBLE OP EN [72101 (CPT )] Start: 09-03-2023 End: 09-03-2023 Anesthesia consultation 09/03/2023 11:30 AM EDT Anesthesia Event [facility] MA[facility] OR [address] [place] [phone] Nasima Honeycutt, OUTLET MANAGER - [employer] [address] [place] [address] [facility] OR Start: 09-03-2023 End: 09-03-2023 Laparoscopy surg cholecystectomy LAPAROSCOPIC CHOLECYSTECTOMY Epigastric pain 09/03/2023 11:30 AM EDT [facility] Operating Room Start: 09-03-2023 Subsequent hospital visit by physician 09/03/2023 9:30 AM EDT Hospital Encounter [facility] OR [address] [place] [phone] Melvin Posey MD [address] [place] [phone] [facility] Start: 08-30-2023 End: 08-30-2023 Admission to establishment [facility] Pre-Admit Testing Start: 08-27-2023 End: 08-27-2023 ambulatory 08/27/2023 2:15 PM EDT Visit (SP) Office [facility] [address] [place], [place] [phone] Bakari Silva MD [address] [place], [place] [id number] pre surgical, results labs [facility] Comment on above: pre surgical, results labs Start: 08-20-2023 End: 11-19-2023 CBC W Auto Differential panel - Blood COMPLETE BLOOD COUNT AND DIFFERENTIAL Lab STAT Von Willebrand disease (HCC) Encounter for preoperative assessment Expected: 08/20/2023, Expires: 11/19/2023 [facility] Comment on above: Expected: 08/20/2023, Expires: Start: 08-20-2023 End: 11-19-2023 VON WILLEBRAND DX PANEL VON WILLEBRAND DX PANEL Lab Routine Von Willebrand disease (HCC) Encounter for preoperative assessment Expected: 08/20/2023, Expires: 11/19/2023 [facility] Work Phone: Comment on above: Expected: 08/20/2023, Expires: Start: 08-18-2023 End: 08-17-2024 Hepatic function 2000 panel - Serum or Plasma Hepatic function panel Lab Routine Preop testing Expected: 08/18/2023 (Approximate), Expires: 08/17/2024 [facility] Work Phone: Comment on above: Expected: 08/18/2023 (Approximate), Expi res: 08/17/2024 Start: 08-04-2023 End: 08-04-2023 Patient encounter procedure 08/04/2023 11:00 AM EDT Office Visit [facility] [address] [place] [phone] Son Rosario MD [address] [place] [id number] [facility] Start: 08-02-2023 End: 11-01-2023 CBC W Auto Differential panel - Blood CBC + DIFF Lab STAT Von Willebrand disease (HCC) Expected: 08/02/2023, Expires: 11/01/2023 [facility] Work Phone: Comment on above: Expected: 08/02/2023, Expires: Start: 08-02-2023 End: 11-01-2023 VON WILLEBRAND DX PANEL VON WILLEBRAND DX PANEL Lab Routine Von Willebrand disease (HCC) Expected: 08/02/2023, Expires: 11/01/2023 [facility] Work Phone: Comment on above: Expected: 08/02/2023, Expires: Start: 07-28-2023 End: 07-28-2023 Patient encounter procedure 07/28/2023 2:00 PM EDT Appointment [facility] [address] [place] [phone] Son Rosario MD [address] [place] [address] [facility] [address] Start: 07-16-2023 End: 07-16-2023 Patient encounter procedure 07/16/2023 9:20 AM EDT Appointment [facility] Vascular Lab [address] [place] [phone] Rebecca Lorenzo PA-C [address] [place] [address] [facility] Vascular Lab Start: 07-14-2023 End: 07-14-2023 Patient encounter procedure 07/14/2023 8:20 AM EDT Appointment [facility] V[facility] Lab [address] [place] [address] Rebecca Lorenzo PA-C [address] [facility] [address] [place] [address] [facility] Vascular Lab Start: 07-07-2023 End: 07-06-2024 MR Abdomen WO and W contrast IV MR abdomen w and wo contrast Imaging Routine Postprandial epigastric pain Elevated lipase Pancreatic lesion Expected: 07/07/2023 (Approximate), Expires: 07/06/2024 [facility] Work Phone: Comment on above: Expected: 07/07/2023 (Approximate), Expi res: 07/06/2024 Start: 06-23-2023 End: 06-23-2023 Patient encounter procedure 06/23/2023 9:30 AM EST Appointment [facility] Nuclear Medicine [address] [place] [phone] Mario Fernando APRN - CNP [address] [place] [address] [facility] Nuclear Medicine Start: 06-16-2023 [facility] Start: 06-08-2023 End: 06-08-2023 Patient encounter procedure 06/08/2023 8:00 AM EST Appointment [facility] Nuclear Medicine [address] [place] [phone] Mario Fernando APRN - [employer] W[employer]ER [address] [facility] [address] [place] [address] [facility] Nuclear Medicine Start: 05-26-2023 End: 05-26-2024 NM Gallbladder Views W cholecystokinin and W radionuclide IV NM hepatobiliary scan with pharm agent w/cck Imaging Routine Postprandial RUQ pain Expected: 05/26/2023, Expires: 05/26/2024 [facility] Comment on above: Expected: 05/26/2023, Expires: Start: 05-26-2023 End: 05-26-2024 NM Stomach Views for gastric emptying solid phase W radionuclide PO NM gastric emptying solid Imaging Routine Nausea and vomiting, unspecified vomiting type Expected: 05/26/2023, Expires: 05/26/2024 [facility] [employer] Work Phone: Comment on above: Expected: 05/26/2023, Expires: 5 Start: 05-26-2023 End: 05-26-2023 Patient encounter procedure 05/26/2023 10:00 AM EST Office Visit [facility] [address] [place] [address] Mario Fernando, OUTLET MANAGER - AIR AND WATER FILLER [address] [place] [address] [facility] Start: 04-26-2023 Behavioral Health Screening [facility] Start: 04-26-2023 Depression Assessment Depression Assessment [facility] Start: 03-14-2023 [facility] Start: 12-25-2022 Covid-19 Vaccine ( season) Covid-19 Vaccine ( season) [facility] Start: 12-25-[address] [facility] Start: 07-07-2022 End: 07-07-2022 Patient encounter procedure 07/07/2022 Office Visit Hematology and Oncology Jeff Purvis MD [address] [address] [facility] Start: 04-26-2022 DEPRESSION ASSESSMENT DEPRESSION ASSESSMENT [facility] Start: 11-20-2020 COVID-19 VACCINE (3 - Booster for Moderna series) COVID-19 VACCINE (3 - Booster for Moderna series) [facility] Start: 11-20-2020 COVID-19 VACCINE (3 - Moderna series) COVID-19 VACCINE (3 - Moderna series) [facility] Start: 12-26-2019 Influenza vaccination INFLUENZA (#1) [facility] Start: 01-31-2017 PAP TESTING PAP TESTING [facility] Start: 01-31-2017 Screening for malignant neoplasm of cervix [facility] Start: 01-31-2015 Hepatitis B Vaccine (1 of 3 - 19+ 3-dose series) Hepatitis B Vaccine (1 of 3 - 19+ 3-dose series) [facility] Start: 01-31-2015 Hepatitis B Vaccines (1 of 3 - 19+ 3-dose series) Hepatitis B Vaccines (1 of 3 - 19+ 3-dose series) [facility] Start: 01-31-2015 Urine microalbumin profile [facility] Start: 01-31-2014 Anxiety Screening Anxiety Screening [facility] Start: 01-31-2014 CHLAMYDIA SCREENING (18-24) CHLAMYDIA SCREENING (18-24) [facility] Start: 01-31-2014 Depression Screening Depression Screening [facility] Start: 01-31-2014 GC (GONORRHEA) SCREENING (18-24) GC (GONORRHEA) SCREENING (18-24) [facility] Start: 01-31-2014 HEPATITIS C SCREENING HEPATITIS C SCREENING [facility] Start: 01-31-2014 Hepatitis C screening Hepatitis C Screening [facility] Start: 01-31-2014 HIV SCREENING HIV SCREENING [facility] Start: 01-31-2014 HIV screening HIV Screening [facility] Start: 01-31-2010 PEDS TO ADULT TRANSITION ANNUAL ASSESSMENT PEDS TO ADULT TRANSITION ANNUAL ASSESSMENT [facility] Start: 01-31-2009 Varicella vaccination Varicella Vaccines (1 of 2 - 13+ 2-dose series) [facility] Start: 2008 Depression Screening Depression Screening [facility] Start: 2008 PEDS TO ADULT TRANSITION INITIAL DISCUSSION PEDS TO ADULT TRANSITION INITIAL DISCUSSION [facility] Start: 01-31-2007 HPV VACCINE (1 - 2-dose series) HPV VACCINE (1 - 2-dose series) [facility] Start: 01-31-2007 HPV Vaccines (1 - 2-dose series) HPV Vaccines (1 - 2-dose series) [facility] Start: 01-31-2006 Diabetic foot examination Diabetes: Foot Exam [facility] Start: 01-31-2006 Glaucoma screening Diabetes: Retinopathy Screening [facility] Start: 01-31-2006 Preventive dental service Diabetes: Dental Exam [facility] Start: 01-31-2005 HPV VACCINE (1 - 2-dose series) HPV VACCINE (1 - 2-dose series) [facility] Start: 01-31-1997 MMR Vaccines (1 of 1 - Standard series) MMR Vaccines (1 of 1 - Standard series) [facility] Start: 01-31-1997 Varicella vaccination Varicella Vaccines (1 of 2 - 2-dose childhood series) [facility] Start: 1996 Hemoglobin A1c measurement Diabetes: Hemoglobin A1C [facility] Start: 1996 HEPATITIS B (1 of 3 - 3-dose series) HEPATITIS B (1 of 3 - 3-dose series) [facility] Start: 1996 Hepatitis B Vaccine (1 of 3 - 3-dose series) Hepatitis B Vaccine (1 of 3 - 3-dose series) [facility] Start: 1996 Hepatitis B Vaccines (1 of 3 - 3-dose series) Hepatitis B Vaccines (1 of 3 - 3-dose series) [facility] Start: 1996 HIV screening HIV Screening [facility] Start: [address] [facility] aPTT in Platelet poo r plasma by Coagulation assay ACTIVATED PTT Lab STAT Von Willebrand disease (HCC) 09/23/2022 11:09 AM EDT [facility] Work Phone: Calprotectin [Mass/mass] in Stool CALPROTECTIN,FECAL Lab Routine Generalized abdominal pain Diarrhea, unspecified type Ordered: 06/09/2022 [facility] Work Phone: Comment on above: Ordered: 06/09/2022 Clostridioides difficile toxin genes [Presence] in Stool by MACIEL with probe detection C. DIFFICILE PCR Lab Routine Generalized abdominal pain Diarrhea, unspecified type Ordered: 06/09/2022 [facility] Work Phone: Comment on above: Ordered: 06/09/2022 End: 06-02-2023 COLONOSCOPY DIAGNOSTIC COLONOSCOPY DIAGNOSTIC Endoscopy Routine Generalized abdominal pain Diarrhea, unspecified type Rectal bleeding 1 Occurrences starting 06/02/2022 until 06/02/2023 [facility] Work Phone: Comment on above: 1 Occurrences starting 06/02/2022 until 06/02/2023 End: 06-30-2023 COLONOSCOPY DIAGNOSTIC COLONOSCOPY DIAGNOSTIC Endoscopy Routine Generalized abdominal pain Diarrhea, unspecified type Rectal bleeding 1 Occurrences starting 06/29/2022 until 06/30/2023 [facility] Work Phone: Comment on above: 1 Occurrences starting 06/29/2022 until 06/30/2023 End: 08-25-2023 COLONOSCOPY DIAGNOSTIC COLONOSCOPY DIAGNOSTIC Endoscopy Routine Generalized abdominal pain Diarrhea, unspecified type Rectal bleeding 1 Occurrences starting 08/24/2022 until 08/25/2023 [facility] Work Phone: Comment on above: 1 Occurrences starting 08/24/2022 until 08/25/2023 End: 09-22-2022 COLONOSCOPY DIAGNOSTIC COLONOSCOPY DIAGNOSTIC Endoscopy Routine Generalized abdominal pain Diarrhea, unspecified type Rectal bleeding 1 Occurrences starting 09/22/2022 until 09/22/2022 [facility] Work Phone: Comment on above: 1 Occurrences starting 09/22/2022 until 09/22/2022 End: 06-02-2023 EGD DIAGNOSTIC EGD DIAGNOSTIC Endoscopy Routine Bilious vomiting with nausea Generalized abdominal pain 1 Occurrences starting 06/02/2022 until 06/02/2023 [facility] Work Phone: Comment on above: 1 Occurrences starting 06/02/2022 until 06/02/2023 End: 06-30-2023 EGD DIAGNOSTIC EGD DIAGNOSTIC Endoscopy Routine Generalized abdominal pain Bilious vomiting with nausea 1 Occurrences starting 06/29/2022 until 06/30/2023 [facility] Work Phone: Comment on above: 1 Occurrences starting 06/29/2022 until 06/30/2023 End: 08-25-2023 EGD DIAGNOSTIC EGD DIAGNOSTIC Endoscopy Routine Bilious vomiting without nausea Generalized abdominal pain 1 Occurrences starting 08/24/2022 until 08/25/2023 [facility] Work Phone: Comment on above: 1 Occurrences starting 08/24/2022 until 08/25/2023 End: 09-22-2022 EGD DIAGNOSTIC EGD DIAGNOSTIC Endoscopy Routine Bilious vomiting without nausea Generalized abdominal pain 1 Occurrences starting 09/22/2022 until 09/22/2022 [facility] Work Phone: Comment on above: 1 Occurrences starting 09/22/2022 until 09/22/2022 ENTERIC BACTERIAL PA JAYCE BY PCR ENTERIC BACTERIAL PANEL BY PCR Lab Routine Generalized abdominal pain Diarrhea, unspecified type Ordered: 06/09/2022 [facility] Work Phone: Comment on above: Ordered: 06/09/2022 Giardia lamblia+Cryptosporidium sp Ag [Presence] in Stool by Immunoassay CRYPTOSPORIDIUM AND GIARDIA ANTIGENS BY EIA Microbiology Routine Generalized abdominal pain Diarrhea, unspecified type Ordered: 06/09/2022 [facility] Work Phone: Comment on above: Ordered: 06/09/2022 End: 07-28-2023 MR Abdomen WO and W contrast IV [facility] [employer] Work Phone: Comment on above: Once for 1 Occurrences starting 07/28/19 24 until 07/28/2023 OUTSIDE PROCEDURE SCAN OUTSIDE P ROCEDURE SCAN Procedures Ordered: 12/04/2022 [facility] Comment on above: Ordered: 12/04/2022 PANC ELASTASE, FECAL PANC ELASTA SE, FECAL Lab Routine Generalized abdominal pain Diarrhea, unspecified type Ordered: 06/09/2022 [facility] Work Phone: Comment on above: Ordered: 06/09/2022 Patient Education [facility] Work Phone: Patient referral [facility] Work Phone: PT panel - Platelet poor plasma by Coagulation assay PROTHROMBIN TIME/PT Lab STAT Von Willebrand disease (HCC) 09/23/2022 11:09 AM EDT [facility] Work Phone: SURGICAL PATHOLOGY [facility] Work Phone: Comment on above: Release Upon Ordering for 1 Occurrences starting 09/22/2022, 1 completed Tissue exam [facility] [employer] Work Phone: Comment on above: Release Upon Ordering for 1 Occurrences starting 09/03/2023 End: 07-02-2023 Us abdominal real time w/image limited US ABD RT UPPER QUADRANT Radiology Routine Bilious vomiting with nausea Generalized abdominal pain Diarrhea, unspecified type 1 Occurrences starting 06/02/2022 until 07/02/2023 [facility] Work Phone: Comment on above: 1 Occurrences starting 06/02/2022 until 07/02/2023 VON WILLEBRAND DX PANEL VON WILL EBRAND DX PANEL Lab STAT Von Willebrand disease (HCC) 09/23/2022 11:09 AM EDT [facility] Work Phone: VON WILLEBRAND PNL (VWFPN) VON WILLEBRAND PNL (VWFPN) Lab STAT Von Willebrand disease (HCC) 09/23/2022 11:09 AM EDT [facility] Work Phone: VWF PANEL (VWFPN) INTERP VWF PANEL (VWFPN) INTERP Lab STAT Von Willebrand disease (HCC) 09/23/2022 11:09 AM T [facility] Work Phone: [facility] Immunizations Immunization Date Immunization Notes Care Provider [facility] 01-25-2023 Influenza, injectabl e, quadrivalent, preservative free Melvin Posey MD Work Phone: [facility] 01-25-2023 influenza virus vacc ine, unspecified formulation Nunu Cortez MD Work Phone: [facility] 02-16-2022 Influenza, injectabl e, quadrivalent, preservative free Melvin Posey MD Work Phone: [facility] 02-16-2022 influenza virus vacc ine, unspecified formulation Nunu Cortez MD Work Phone: [facility] 01-03-2020 Influenza, injectabl e, Ruddy Lopez Canine Kidney, preservative free, quadrivalent Melvin Posey MD Work Phone: [facility] 02-24-2017 influenza, injectabl e, quadrivalent, preservative free [facility] 05-11-2016 tetanus toxoid, redu gabino diphtheria toxoid, and acellular pertussis vaccine, adsorbed Jeff Purvis MD Work Phone: [facility] 03-05-2016 Influenza, injectabl e, quadrivalent, preservative free Melvin Posey MD Work Phone: [facility] 02-19-2013 influenza, seasonal, injectable Melvin Posey MD Work Phone: [facility] 04-05-2003 influenza, seasonal, injectable Melvin Posey MD Work Phone: [facility] Payers Date Payer Category Payer Self-pay [id number] 2022 Commercial Managed Formerly [facility] [id number] 2022 Private Health Insurance [id number] 2022 Private Health Insurance [id number] 2017 Medicaid [employer] [id number] 2017-Present Medicaid [id number] 1996 Unknown [id number] 1996 Unknown [id number] 1996 Unknown [id number] 1996 Unknown [id number] Medicaid [id number] Private Health Insurance [employer] [id number] Unknown Unknown [id number] Unknown [id number] Unknown [id number] Unknown [id number] Unknown [id number] Unknown [id number] Unknown [id number] Social History Date Type Detail Facility Start: 04-05-2017 End: 06-02-2022 Tobacco smoking status NHIS Former smoker [facility] Start: 04-05-2017 End: 06-02-2022 Tobacco use and exposure Never used [facility] Start: 04-05-2017 End: 04-10-2024 Alcohol intake Current non-drinker of alcohol (finding) [facility] Start: 1995 Sex Assigned At Not on file [facility] Start: 04-26-2016 End: 04-26-2018 History of tobacco use Current smoker [facility] Start: 1995 Sex Assigned At Female C [facility] Start: 04-26-2016 End: 04-26-2018 History of tobacco use Cigarette Smoker [facility] Start: 06-23-2022 End: 09-04-2022 Cigarettes smoked current (pack per day) - Reported 0.5 [facility] Start: 06-26-2022 End: 07-06-2022 Exposure to SARS-CoV-2 (event) Not sure [facility] Start: 06-23-2022 End: 09-04-2022 Tobacco use panel [facility] Adult Depression Screening Assessment 0 [facility] Start: 06-01-2022 Gender identity Identifies as female gender (finding) [facility] Start: 06-01-2022 Sexual orientation Heterosexual (fin ding) [facility] Start: 06-16-2023 Tobacco smoking stat us NHIS Unknown if ever smoked [facility] Has the electric, [employer] ([employer]), oil, or water company threatened to shut off services in your home in past 12Mo No [facility] [employer] (I/We) worried wheth er (my/our) food would run out before (I/we) got money to buy more. Never true [facility] Start: 11-24-2021 Sex Female (finding) [facility] Clinical Notes 06-02-2022 to 09-26-2024 Telephone Encounter - Bakari Silva MD - 09/26/2024 [...] school for 09/25 and 09/26/24. Thank you. [facility] 09-26-2024 Miscellaneous Notes I spoke to Jerrica in the morning of 09/26/24 (see separate phone encounter). Oncology staff, please write a letter for Jerrica excusing her from school for 09/25 and 09/26/24. Thank you. documented in this encounter [facility] 09-26-2024 Telephone encounter Note Jerrica called the Answering Service and explained that she has had rectal bleeding since yesterday. I will prescribe Amicar again. She still has DDAVP. She will call the GI office today for an appointment. [facility] 09-26-2024 Miscellaneous Notes Jerrica called the Answering Service and explained that she has had rectal bleeding since yesterday. I will prescribe Amicar again. She still has DDAVP. She will call the GI office today for an appointment. documented in this encounter [facility] 08-31-2024 Radiology Diagnostic study note [facility] Imaging Services [address] [place] [address] Abdomen/Pelvis W IV Cont ONLY MR#: [id number] Acct: [id number] Name: JERRICA SUGGS Rep #: [id number] : 1995 F 29 From: [place] Carlson MD PCP: Dr. Nunu Cortez MD Status: REG E R Study:Abdomen/Pelvis W IV Cont ONLY Date of E xam: 08/31/24 Exam# [id number] Ordering Dr: Bettina Garcia DO PROCEDURE: ABDOMEN/PELVIS [...] concerning for acute infectious colitis. Reading [facility] CC: Dr. Nunu Cortez MD; Dr. Tom Garcia, DO ~ Manager Land: Signed [facility] 08-30-2024 Telephone encounter Note Letter sent to patients [facility] via her request. Tamie Whitney MA [facility] 08-30-2024 Miscellaneous Notes Letter sent to patients [facility] via her request. Tamie Whitney MA [...] Tamie Whitney MA documented in this encounter [facility] 08-30-2024 Telephone encounter Note I sent letter to your inbox. Thanks [facility] Work Phone: 08-30-2024 Telephone encounter Note Pt [...] of office this week? Tamie Whitney MA [facility] 07-06-2024 Telephone encounter Note Called to get pt booked based on referral pt wants near [facility] where lives Hiren Mendez [facility] 07-06-2024 Miscellaneous Notes Called to get pt booked based on referral pt wants near [facility] where lives Hiren Irene documented in this encounter [facility] 06-22-2024 Miscellaneous Notes She started with the rectal bleeding last Wednesday and last episode was yesterday. She will reach out to GI to schedule. 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 GI consult faxed. Bushra Zamora [...] will be back to the group at [facility]- is she able to call them [...] either. Message sent to Dr. Silva on 500px chat. Bushra Zamora RN documented in this encounter [facility] 06-22-2024 Telephone encounter Note She started with the rectal bleeding last Wednesday and last episode was yesterday. She will reach out to GI to schedule. 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 GI consult faxed. Bushra Zamora RN [facility] 06-22-2024 Telephone encounter Note I cannot tell [...] will be back to the group at [facility]- is she able to call them also to expedite (a follow-up appointment may be easier to obtain than a new referral)? [facility] 06-19-2024 Telephone encounter Note Called patient, she will get lab work drawn, she would like medication for bleeding and GI consult. Bushra Zamora RN [facility] 06-19-2024 Telephone encounter Note From a [...] bleeding from Jerrica was in 09/2022. [facility] 06-19-2024 Telephone encounter Note patient called [...] on bubble chat. Bushra Zamora RN [facility] 06-05-2024 Telephone encounter Note S: Patient [...] Protocols used: No Contact or Duplicate Contact [id number] 06-05-2024 Miscellaneous Notes S: Patient [...] Protocols used: No Contact or Duplicate Contact [id number] documented in this encounter [facility] 04-10-2024 History of Presen t [...] PATIENT PRESENTS WITH AN IMPLANTABLE OR ATTACHED SOIL AND PLANT SCIENTIST: No RADIOLOGY DEPARTMENT: General X-ray: Exam(s) Completed: Chest X-Ray PERIPHERAL IV DATA: Not applicable SIGNED BY: RT Wanda(R) April 10, 2024 8:48 AM documented in this encounter [facility] 04-10-2024 Note HNO ID: [id number] Author: GAGE CARABALLO RT(R) Service: ? Author Type: Blue Line Hanger Type: Progress Notes Filed: 04/10/2024 08:55 Note [...] PATIENT PRESENTS WITH AN IMPLANTABLE OR ATTACHED SOIL AND PLANT SCIENTIST: No RADIOLOGY DEPARTMENT: General X-ray: Exam(s) Completed: Chest X-Ray PERIPHERAL IV DATA: Not applicable SIGNED BY: RT Wanda(Gil) April 10, 2024 8:48 AM [facility] 04-10-2024 Note HNO ID: [id number] Author: DMITRY GALVAN APRN.AIR AND WATER FILLER Service: ? Author Type: Nurse Practitioner Type: [...] of motion and (more content not included)... [facility] 12-17-2023 Telephone encounter Note Jerrica called in regarding appointment scheduled 12/20/23 for her vaccination. States she was unaware while scheduling appointment it was being scheduled in [place] office opposed to [place]. Asked if it was possible to be completed in [place]. Please advise. [facility] 12-17-2023 Miscellaneous Notes Jerrica called in regarding appointment scheduled 12/20/23 for her vaccination. States she was unaware while scheduling appointment it was being scheduled in [place] office opposed to [place]. Asked if it was possible to be completed in [place]. Please advise. documented in this encounter [facility] 09-15-2023 History of Presen t illness Narrative Images from the original note were not included. [facility] Advanced Laparoscopic Surgery Patient Name: Jerrica Suggs [...] (Hematology and Oncology) documented in this encounter [facility] 09-04-2023 Note Discharge Summary Jerrica Suggs : 1995 ADMIT DATE: 09/03/2023 DISCHARGE DATE: 09/04/2023 PRIMARY CARE PHYSICIAN: Nunu Cortez VISIT STATUS: Observation CODE STATUS: Full Code DISCHARGE DIAGNOSES: Principal Problem: Epigastric pain HOSPITAL COURSE: Jerrica Suggs underwent laparoscopic cholecystectomy on 09/03/2023 and tolerated the procedure well. She has a hx of von willebrand's disease so her simulation specialist's recommendations were followed, given pre-op vWF and [...] Your Medications These medications were sent to [facility]/pharmacy #[id number] - [place] [id number] ondansetron 4 MG tablet oxyCODONE 5 MG immediate release tablet DIET: Adult diet Regular ACTIVITY: No heavy lifting. COMPLEXITY OF FOLLOW UP: [] Moderate Complexity: follow up within 7-14 calendar days (02336) [] Severe Complexity: follow up within 7 calendar days (91525) FOLLOW UP TESTING, PENDING RESULTS OR REFERRALS AT TRANSITIONAL CARE VISIT: [] Yes [] No PENDING STUDIES: Pathology DISPOSITION: Home FACILITY/HOME CARE AGENCY NAME: n/a Follow up with Melvin Posey MD [address] [place] [place] [address] [address] [facility] [address] Follow up in 2 week(s) INSTRUCTIONS TO [...] SIGNED: Angelica Warner MD 09/04/2023, 9:15 AM [facility] 09-04-2023 Hospital Discharg e instructions Angelica Warner [...] and/or NSAIDS, please take your opioid prescription (Vernon/vicodin/percocet have tylenol in them) as needed for [...] tablets if needed documented in this encounter [facility] [employer] 09-04-2023 Note Department of [facility] l Surgery Daily Progress Note [...] Dr. Taty Warner MD General Surgery PGY-5 [facility] 09-03-2023 Consult note Formatting of th is note is different from the original. Images from the original note were not included. 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 Electronically signed by CHRIS Rico CNP I have personally performed a face to face diagnostic evaluation on this patient. I have reviewed and agree with the care plan. My assessment/plan is the above Agree with plan. Pt will FU with Dr. Silva at [facility]. Dr. Daniel Rivera manager digital ad operations for hematology team this weekend. 45 minutes reviewing previous notes, test results and face to face with the patient discussing the diagnosis and importance of compliance with the treatment plan as well as documenting on the day of the visit. [facility] [employer] 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 [facility] 09-03-2023 Plan of care note Problem: Knowledge [...] risk of patient condition declining or worsening [facility] 09-03-2023 Consult note Formatting of th is note is different from the original. Images from the original note were not included. 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 Electronically signed by CHRIS Rico CNP I have personally performed a face to face diagnostic evaluation on this patient. I have reviewed and agree with the care plan. My assessment/plan is the above Agree with plan. Pt will FU with Dr. Silva at [facility]. Dr. Daniel Rivera manager digital ad operations for hematology team this weekend. 45 minutes reviewing previous notes, test results and face to face with the patient discussing the diagnosis and importance of compliance with the treatment plan as well as documenting on the day of the visit. documented in this encounter [facility] 09-03-2023 Miscellaneous Notes Problem: Knowledge [...] not included. MELVIN POSEY MD , FACS, [facility] MINIMALLY INVASIVE & METABOLIC / BARIATRIC SURGERY [facility] OPERATIVE REPORT 09/03/2023 PATIENT: Jerrica Suggs DATE OF : 1995 - PROCEDURE: 1. LAPAROSCOPIC CHOLECYSTECTOMY ([id number]) SURGEON: Melvin Posey MD DIRECTOR CRAFT CENTER: Tawny Leija MD PRE-OPERATIVE DIAGNOSES: Chronic cholecystitis [...] of the procedure. documented in this encounter [facility] 09-03-2023 Note Formatting of this n ote might be different from the original. Called report to H5 RN. Called and updated patient's mother. [facility] 09-03-2023 Note Formatting of this n ote might be different from the original. Called report to H5 RN. Called and updated patient's mother. [facility] 09-03-2023 Note Formatting of this n ote might be different from the original. Mother updated and awaiting a room assignment [facility] 09-03-2023 Note Formatting of this n ote might be different from the original. Mother updated and awaiting a room assignment [facility] 09-03-2023 Note Patient: Jerrica woodward Procedure Summary Date: 09/03/23 Room / Location: [address] Operating Room Anesthesia Start: 1031 Anesthesia [...] once all PACU criteria has been met. [facility] 09-03-2023 Note Patient: Jerrica woodward Procedure Summary Date: 09/03/23 Room / Location: [facility] OR [address] [place] [address] Operating Room Anesthesia Start: 1031 Anesthesia Stop: [...] opportunity for questions and acknowledgement of understanding. [facility] 09-03-2023 Note Airway Date/Time: 09/03/2023 10:39 AM Urgency: scheduled Airway not difficult General Information and Staff Patient location during procedure: Procedural Resident/BUTTER MELTER: Marco Antonio Stewart CRNA Performed: BUTTER MELTER Indications and Patient Condition Indications for airway [...] 21 Number of attempts at approach: 1 [facility] 09-03-2023 Note Peripheral Block Time Out: 09/03/2023 10:35 AM Patient location during procedure: Procedural Start time: 09/03/2023 10:35 AM End time: 09/03/2023 10:40 AM Reason for block: at surgeon's request and post-op pain management Staffing Performed: BUTTER MELTER Resident/BUTTER MELTER: CHRIS Durbin CRNA Preanesthetic Checklist Completed: patient [...] supine Prep: ChloraPrep Patient monitoring: heart rate, tetryl screen operator, continuous pulse ox and continuous capnometry O2: [...] plane. and Local anesthetic injected without difficultyMedications gswTTYLAlefzj-dvsabaibhoy-vfgfbk hrine (TAP) syringe - Injection 60 mL - 09/03/2023 10:35:00 AM [facility] 09-03-2023 Note Formatting of this n ote might be different from the original. Images from the original note were not included. MELVIN POSEY MD , FACS, [facility] MINIMALLY INVASIVE & METABOLIC / BARIATRIC SURGERY [facility] OPERATIVE REPORT 09/03/2023 PATIENT: Jerrica Suggs DATE OF : 1995 - PROCEDURE: 1. LAPAROSCOPIC CHOLECYSTECTOMY ([id number]) SURGEON: Melvin Posey MD DIRECTOR CRAFT CENTER: Tawny Leija MD PRE-OPERATIVE DIAGNOSES: Chronic cholecystitis [...] the entire duration of the procedure. T [facility] 09-03-2023 Note Formatting of this n ote might be different from the original. Images from the original note were not included. MELVIN POSEY MD , FACS, [facility] MINIMALLY INVASIVE & METABOLIC / BARIATRIC SURGERY [facility] OPERATIVE REPORT 09/03/2023 PATIENT: Jerrica Suggs DATE OF : 1995 - PROCEDURE: 1. LAPAROSCOPIC CHOLECYSTECTOMY ([id number]) SURGEON: Melvin Posey MD DIRECTOR CRAFT CENTER: Tawny Leija MD PRE-OPERATIVE DIAGNOSES: Chronic cholecystitis [...] for the entire duration of the procedure. [facility] 09-03-2023 Attending History and physical note H&P reviewed. The patient was examined and there are no changes to the H&P. Discussed with anesthesia personnel administration of blood products per hematology Source Note - Nasima Honeycutt APRN - [employer] - 08/30/2023 1:00 PM EDT Comprehensive Pre Surgical History and Physical ? Name: Jerrica Suggs : 1995 (Age-28 y.o.) Date of Service: Pt seen/examined on 08/30/2023 Procedure Information Date/Time: 09/03/23 1130 Procedure: LAPAROSCOPIC CHOLECYSTECTOMY POSSIBLE OPEN (Abdomen) - 90 MIN Location: [facility] OR Operating Room Surgeons: Melvin Posey [...] opioid use? NO ? Denies history of CA, CAD, CHF, TIA, CVA Past Medical History: [...] 97 % 08/30/23 1304 Labs: Collected in [facility] José Luis's Simple Cardiac Risk Index: JOSÉ LUIS'S SIMPLE CARDIAC RISK SCORE: 0 Interpretation: 0 Points Class I 0.5% 1 Point Class II 1.3% 2 Points Class III 3.6% 3+ Points Class IV 9.1% [facility] Pain Score: Pain Score: 5 - Moderate pain Postop Pain Management Plan (Pain consult ordered?): Pain consult not indicated at this time ? EKG: not indicated per [facility] protocol ECHO and EF:None on file No components found for: LVEF, LVEFMODE METS >4 Electronically signed by: CHRIS Hancock CNP Date: 08/30/2023 at 1:24 PM [facility] Work Phone: 09-03-2023 Note H&P reviewed. The pa livan was examined and there are no changes to the H&P. Discussed with anesthesia personnel administration of blood products per hematology [facility] [employer] [facility] 09-03-2023 History and physical note H&P reviewed. The patient was examined and there are no changes to the H&P. Discussed with anesthesia personnel administration of blood products per hematology Source Note - CHRIS Hancock CNP - 08/30/2023 1:00 PM EDT Comprehensive Pre Surgical History and Physical ? Name: Jerrica Suggs : 1995 (Age-28 y.o.) Date of Service: Pt seen/examined on 08/30/2023 Procedure Information Date/Time: 09/03/23 1130 Procedure: LAPAROSCOPIC CHOLECYSTECTOMY POSSIBLE OPEN (Abdomen) - 90 MIN Location: [facility] OR Operating Room Surgeons: Melvin Posey [...] opioid use? NO ? Denies history of CA, CAD, CHF, TIA, CVA Past Medical History: [...] 97 % 08/30/23 1304 Labs: Collected in [facility] José Luis's Simple Cardiac Risk Index: JOSÉ LUIS'S SIMPLE CARDIAC RISK SCORE: 0 Interpretation: 0 Points Class I 0.5% 1 Point Class II 1.3% 2 Points Class III 3.6% 3+ Points Class IV 9.1% [facility] Pain Score: Pain Score: 5 - Moderate pain Postop Pain Management Plan (Pain consult ordered?): Pain consult not indicated at this time ? EKG: not indicated per [facility] protocol ECHO and EF:None on file No components found for: LVEF, LVEFMODE METS >4 Electronically signed by: Nasima Honeycutt APRN - TREV Date: 08/30/2023 at 1:24 PM documented in this encounter [facility] 09-02-2023 Note Basic chart review [...] age of 9 months old TONSILLECTOMY (HISTORICAL) [facility] 09-02-2023 History of Presen t illness Narrative [...] old TONSILLECTOMY (HISTORICAL) documented in this encounter [facility] 08-31-2023 Telephone encounter Note Reviewed [...] Note patient's PTT at baseline is elevated. [facility] [employer] Phone: 08-31-[address] Silva's [...] department who recommends orders from patient's primary simulation specialist and would only recommend referral to our [...] Name of caller: Jerrica Contact phone number: [phone] Relationship to Patient: patient Provider: Dr. Posey [...] their call: No documented in this encounter [facility] 08-31-[address] [...] department who recommends orders from patient's primary simulation specialist and would only recommend referral to our [...] Name of caller: Jerrica Contact phone number: [phone] Relationship to Patient: patient Provider: Dr. Posey [...] their call: No documented in this encounter [facility] 08-30-2023 Note Patient: Jerrica woodward Procedure Information Date/Time: 09/03/23 1130 Procedure: LAPAROSCOPIC CHOLECYSTECTOMY POSSIBLE OPEN (Abdomen) - 90 MIN Location: [facility] OR Operating Room Surgeons: Melvin Posey [...] for the past 14 days 05/14/16 (Final) [facility] 08-30-2023 Note Comprehensive Pre Small rgical History and Physical ? Name: Jerrica Suggs : 1995 (Age-28 y.o.) Date of Service: Pt seen/examined on 08/30/2023 Procedure Information Date/Time: 09/03/23 1130 Procedure: LAPAROSCOPIC CHOLECYSTECTOMY POSSIBLE OPEN (Abdomen) - 90 MIN Location: [facility] OR Operating Room Surgeons: Melvin Posey [...] Hepatic panel drawn per surgeon's orders in [facility] Visit Type: Pre-Admission Testing Visit Labs Ordered: [...] opioid use? NO ? Denies history of CA, CAD, CHF, TIA, CVA Past Medical History: [...] reactive to light. (more content not included)... [facility] 08-30-2023 Note Comprehensive Pre Small rgical History and Physical ? Name: Jerrica Suggs : 1995 (Age-28 y.o.) Date of Service: Pt seen/examined on 08/30/2023 Procedure Information Date/Time: 09/03/23 1130 Procedure: LAPAROSCOPIC CHOLECYSTECTOMY POSSIBLE OPEN (Abdomen) - 90 MIN Location: [facility] OR Operating Room Surgeons: Melvin Posey [...] opioid use? NO ? Denies history of CA, CAD, CHF, TIA, CVA Past Medical History: [...] reactive to light. (more content not included)... [facility] 08-28-2023 Telephone encounter Note Please fax my most recent note from 08/27/23 to the requesting office. [facility] 08-28-2023 Miscellaneous Notes Please fax my most recent note from 08/27/23 to the requesting office. CAROLYNN Tao from [facility] would like to get pre-op and post- op recommendations for medications, lab orders etc.. . She is having surgery on September [address] Posey. They will keep her for over night observation after her surgery on 09/02. Rebecca Lorenzo - [phone] documented in this encounter [facility] 08-27-2023 History of Presen t illness Narrative Images from the original note were not included. VIRTUAL VISIT PROGRESS NOTE This is a virtual visit using [employer] Zoom Video Visit. 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. Jerrica had her labs drawn [...] Procedure Laterality Date COLONOSCOPY 09/22/2022 EGD W/O [facility] SPEC VARICIES INJ 09/22/2022 OTHER ureteral-reimplantation TONSILLECTOMY [...] - 4.00 k/uL 2.67 2.06 1.89 Abs Stanislaus <0.87 k/uL 0.61 0.61 0.46 Abs Eosin [...] surgery Bakari Silva MD Hematology and Oncology [facility] documented in this encounter [facility] 08-27-2023 Telephone encounter Note CAROLYNN Tao from [facility] would like to get pre-op and post- op recommendations for medications, lab orders etc.. . She is having surgery on September [address] Posey. They will keep her for over night observation after her surgery on 09/02. Rebecca Lorenzo - [phone] [facility] 08-27-2023 Telephone encounter Note LVM with Dr. Silva's office updating of patient's schedule lap huyen on 09/02 with plans to keep her for observation. Requesting specific preop medications and dosing and specific postop recommendations for blood work/treatment. I spoke to our hematology department who recommends orders from patient's primary simulation specialist and would only recommend referral to our hematology in light of concerns or complications. LVM requesting callback to office with recommendations. [facility] [employer] Work Phone: 08-27-2023 Miscellaneous Notes LVM with Dr. Silva's office updating of patient's schedule lap huyen on 09/02 with plans to keep her for observation. Requesting specific preop medications and dosing and specific postop recommendations for blood work/treatment. I spoke to our hematology department who recommends orders from patient's primary simulation specialist and would only recommend referral to our [...] her but she wants to speak to [facility] to get a clear picture of what [...] Name of caller: Jerrica Contact phone number: [phone] Relationship to Patient: patient Provider: Dr. Posey [...] their call: No documented in this encounter [facility] 08-20-2023 Telephone encounter Note Spoke with patient today. Lab work to be drawn Wednesday08/23/2023. Telemed visit scheduled 08/27/2023. [facility] 08-20-2023 Miscellaneous Notes Spoke with patient today. [...] Shirley Parrish LPN documented in this encounter [facility] 08-20-2023 Telephone encounter Note Please schedule a virtual visit with patient (phone or video) about 3 business days after whenever patient will plan to undergo lab testing. Please offer to patient again my sincere apologies for the delay in getting back to her message. [facility] 08-17-2023 Telephone encounter Note Pt calling today to ask exactly when her blood work needs completed before her gallbladder surgery by Dr. Posey on 09/03/23 at 11 am? Please advise. Shirley Parrish LPN [facility] 08-13-2023 Telephone encounter Note Spoke to Dr. [...] staying overnight in the hospital for obs. [facility] [facility] Phone: 08-13-2023 Miscellaneous Notes Spoke to Dr. [...] that we wanted her to see a [facility]. And that this may prolong her [...] Name of caller: Jerrica Contact phone number: [phone] Relationship to Patient: patient Provider: Dr. Posey [...] their call: No documented in this encounter [facility] 08-12-2023 Telephone encounter Note I will contact her once I have a plan from hematology. [facility] Work Phone: 08-12-2023 Miscellaneous Notes I will contact her once I have a plan from hematology. Patient called . She spoke to Dr Luke and is confused. She states the Dr Luke told her that we wanted her to see a [facility]. And that this may prolong her [...] Name of caller: Jerrica Contact phone number: [phone] Relationship to Patient: patient Provider: Dr. Posey [...] their call: No documented in this encounter [facility] [employer] 08-12-2023 Telephone encounter Note Patient called . She spoke to Dr Luke and is confused. She states the Dr Luke told her that we wanted her to see a [facility]. And that this may prolong her surgery date. I read the notes to her but she wants to speak to Jessee to get a clear picture of what the game plan is. She wants surgery soon and does not want for it to be prolonged [facility] 08-10-2023 Telephone encounter Note Call from patient [...] be with her PCP. Patient expressed understanding. [facility] 08-10-2023 Miscellaneous Notes Call from patient - [...] her in clinic. documented in this encounter [facility] 08-10-2023 Telephone encounter Note Called and lvm statting that we are waiting on a surgery date from Dr oPsey [facility] 08-10-2023 Telephone encounter Note Jo, please contact patient and schedule lap huyen. I am still coordinating with heme/onc regarding perioperative management, but this should not prohibit scheduling. Thanks. [facility] 08-10-2023 Telephone encounter Note Name of caller: Jerrica Contact phone number: [phone] Relationship to Patient: patient Provider: Dr. Posey [...] business hours to return their call: No [facility] 08-06-2023 Telephone encounter Note Patient would like a call back with status of surgery and admission. Please call patient [facility] [employer] 08-06-2023 Miscellaneous Notes Patient would like a [...] be kept outpatient, but would recommend consulting [facility]'s heme/onc to help coordinate f/u lab work. Otherwise, consider observation to ease f/u evaluation. Will discuss with Dr. Posey and let patient know POC. Called Dr. Silva's office and [facility] for city secretary, requesting recommendations for outpatient procedure, as [...] to have a Hematology Dr here at [facility] since her other is at [facility] if problems arise. DP documented in this encounter [facility] 08-05-2023 Telephone encounter Note Put on Dr Posey's desk for date [facility] 08-05-2023 Miscellaneous Notes Put on [...] be kept outpatient, but would recommend consulting [facility]'s heme/onc to help coordinate f/u lab work. Otherwise, consider observation to ease f/u evaluation. Will discuss with Dr. Posey and let patient know POC. Called Dr. Silva's office and [facility] for city secretary, requesting recommendations for outpatient procedure, as patients usually do not require overnight stays. Please take message and let me know, thanks. Patient called in stating that her Dr Bakari Silva [facility] Hematology Oncology spoke with her regarding surgery with us. Due to her bleeding disorder Dr Silva asked her to ask us if she could stay for an overnight observation for her surgery (Lap Huyen w Dr Posey) for medication purposes. Patient also was in question about if she may have to have a Hematology Dr here at [facility] since her other is at [facility] if problems arise. DP documented in this encounter [facility] 08-05-[address] Silva's office note - received and in your box for review. [facility] 08-04-2023 Telephone encounter Note Awaiting [...] work with Dr. Posey to schedule. Thanks! [facility] [employer] Work Phone: 08-04-[address] [...] be kept outpatient, but would recommend consulting [facility]'s heme/onc to help coordinate f/u lab work. Otherwise, consider observation to ease f/u evaluation. Will discuss with Dr. Posey and let patient know POC. Called Dr. Silva's office and [facility] for city secretary, requesting recommendations for outpatient procedure, as patients usually do not require overnight stays. Please take message and let me know, thanks. Patient called in stating that her Dr Bakari Silva [facility] Hematology Oncology spoke with her regarding surgery with us. Due to her bleeding disorder Dr Silva asked her to ask us if she could stay for an overnight observation for her surgery (Lap Huyen w Dr Posey) for medication purposes. Patient also was in question about if she may have to have a Hematology Dr here at [facility] since her other is at [facility] if problems arise. DP documented in this encounter [facility] 08-04-2023 Telephone encounter Note Reviewed Dr. Rosario's recommendations. Patient expressed understanding. Requests for Dr. Rosario to see her again if her PCP is unable to order testing. Patient instructed to call with any future questions. [facility] 08-04-2023 Telephone encounter Note Images from the original note were not included. Son Rosario MD You She is cleared to have surgery. 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 [facility] 08-03-2023 Telephone encounter Note Call from patient. States she already saw results and unclear why she needs to come in for appointment with Dr. Rosario when it says it is benign. Patient states she lives far away (30 minutes). Patient would just like clearance to have surgery with Dr. Posey. [facility] 08-03-2023 Miscellaneous Notes Call from [...] her in clinic. documented in this encounter [facility] 08-03-[address] Juju mccarty note being faxed over. She states that patient reports bleeding with previous procedures. Recommend DDAVP or factor preop and 8-12 hours following procedure to recheck labs. She states that she can be kept outpatient, but would recommend consulting [facility]'s heme/onc to help coordinate f/u lab work. Otherwise, consider observation to ease f/u evaluation. Will discuss with Dr. Posey and let patient know POC. [facility] 08-03-2023 Telephone encounter Note Spoke to Dr. Juju mccarty note being faxed over. She states that patient reports bleeding with previous procedures. Recommend DDAVP or factor preop and 8-12 hours following procedure to recheck labs. She states that she can be kept outpatient, but would recommend consulting [facility]'s heme/onc to help coordinate f/u lab work. Otherwise, consider observation to ease f/u evaluation. Will discuss with Dr. Posey and let patient know POC. [facility] 08-03-2023 Miscellaneous Notes I spoke to . Rebecca Bj regarding Jerrica, and discussed likely need for IV DDAVP or IV VWF prior to surgery. Because these infusions are typically repeated every 8 to 24 hours, it may be difficult, though not impossible, to coordinate care as outpatient. I also recommended referral to Hematology at [facility] so Hematology can be present within the same health care system as Dr. oPsey, patient's surgeon, for factor or DDAVP replacement prior to and after surgery. I have asked our clinic staff to also fax my latest clinic note (from yesterday) to Ms. Lorenzo and Dr. Posey. Received call from [facility] Surgery department (Rebecca PRADHAN [phone]). Request to speak regarding upcoming lap huyen. Patients are not usually admitted. They can administer pre op DDAVP. Recommendation to repeat lab work prior. documented in this encounter [facility] 08-03-2023 Telephone encounter Note Spoke with patient. Scheduled appt for 08/04/2023 [facility] 08-03-2023 Telephone encounter Note Images from the original note were not included. MD Casandra Coe MA Let see her in clinic. [facility] 08-03-2023 Telephone encounter Note ----- Message from Son Rosario MD sent at 08/02/2023 11:58 AM EDT ----- Let see her in clinic. [facility] 08-02-[address] Silva's of [facility] and [place] for city secretary, requesting recommendations for outpatient procedure, as patients usually do not require overnight stays. Please take message and let me know, thanks. [facility] 08-02-2023 Telephone encounter Note Called Dr. Silva's office and LVM for city secretary, requesting recommendations for outpatient procedure, as patients usually do not require overnight stays. Please take message and let me know, thanks. [facility] Work Phone: 08-02-[address] Silav's office and [place] for city secretary, requesting recommendations for outpatient procedure, as patients usually do not require overnight stays. Please take message and let me know, thanks. Patient called in stating that her Dr Bakari [facility] [facility] Hematology Oncology spoke with her regarding surgery with us. Due to her bleeding disorder Dr Silva asked her to ask us if she could stay for an overnight observation for her surgery (Stevie Posey) for medication purposes. Patient also was in question about if she may have to have a Hematology Dr castillo at [facility] since her other is at [facility] if problems arise. DP documented in this encounter [facility] 08-02-2023 Telephone encounter Note Patient called in stating that her Dr Bakari Silva [facility] Hematology Oncology spoke with her regarding surgery with us. Due to her bleeding disorder Dr Silva asked her to ask us if she could stay for an overnight observation for her surgery (Stevie Posey) for medication purposes. Patient also was in question about if she may have to have a Hematology Dr here at [facility] since her other is at [facility] if problems arise. DP [facility] 08-02-2023 Instructions Bakari Silva MD - 08/02/2023 11:49 AM EDT Please let us know when your surgery is scheduled, and how the surgery will take place. If you are being admitted, it would be best to have levels rechecked prior to surgery and to see Hematology at [facility]. documented in [facility] 08-02[facility]23 History of Presen t illness Narrative Images from the original note were not included. Name: Jerrica Suggs Date of : 1995 Date of Service: 08/02/23 Diagnosis: Von Willebrand disease type I, diagnosed at age 17 at [facility], when prolonged PTT was noted in [...] Procedure Laterality Date COLONOSCOPY 09/22/2022 EGD W/O [facility] SPEC VARICIES INJ 09/22/2022 OTHER ureteral-reimplantation TONSILLECTOMY [...] 1.00 - 4.00 k/uL 2.67 2.06 Abs Stanislaus <0.87 k/uL 0.61 0.61 Abs Eosin <0.46 [...] case inpatient Hematology can follow patient at [facility]. If patient does not get admitted per [...] weeks. Bakari Silva MD Hematology and Oncology [facility] documented in this encounter [facility] 07-07-2023 History of Presen t illness Narrative [...] recommended. Patient Name: JERRICA SUGGS [facility] 1995 [id number] Exam Date/Time: 06/24/2023 23:57 Procedure: CT ABDOMEN [...] was 45 minutes. documented in this encounter [facility] 07-07-2023 Note Patient is referred [...] recommended. Patient Name: JERRICA SUGGS : 1995 [id number] Exam Date/Time: 06/24/2023 23:57 Procedure: CT ABDOMEN [...] is anteverted and contains IUD in the agdaagux (more content not included)... [facility] 07-05-2023 History of Presen t illness Narrative Images from the original note were not included. MELVIN POSEY MD, FACS, [facility] ADVANCED LAPAROSCOPIC - ROBOTIC & BARIATRIC SURGERY [facility] HISTORY AND PHYSICAL 07/05/23 PATIENT: [...] 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 FHx significant for MS in her mother and paternal grandmother, who also of pancreatic cancer. PSH significant for open anti-ureteral reflux surgery at 9 months old, . Former smoker. Notes Reviewed: - ER, 06/24/23 - Charlee Fernando OUTLET MANAGER, 05/26/23 Data reviewed: - CT abd/pel, 06/24/23: [...] Medical risk stratification: hematology, Dr. Silva and [facility] clinic Additional work-up and pre-op testing: referral [...] benefits and options. IN POSEY MD, FACS, [facility] Radio Division Officer - Bariatric Care Center - Weight Management [place] Director Of Clinical Services - Advanced GI MIS and Bariatric Surgery Fellowship ---[facility]--- Patient Care Team: Nunu Cortez MD as PCP - General (Family Medicine) Bakari Silva MD (Hematology and Oncology) se documented in this encounter [facility] 07-05-2023 History of Presen t illness Narrative Images from the original note were not included. MELVIN POSEY MD, FACS, [facility] ADVANCED LAPAROSCOPIC - ROBOTIC & BARIATRIC SURGERY [facility] HISTORY AND PHYSICAL 07/05/23 PATIENT: Jerrica [...] 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 FHx significant for MS in her mother and paternal grandmother, who also of pancreatic cancer. PSH significant for open anti-ureteral reflux surgery at 9 months old, . Former smoker. Notes Reviewed: - ER, 06/24/23 - Charlee Fernando OUTLET MANAGER, 05/26/23 Data reviewed: - CT abd/pel, 06/24/23: [...] Medical risk stratification: hematology, Dr. Silva and [facility] clinic Additional work-up and pre-op testing: referral [...] risks, benefits and options. IN POSEY MD, [facility], [facility] Radio Division Officer - Bariatric Care Center - Weight Management [place] Director Of Clinical Services - Advanced GI MIS and Bariatric Surgery Fellowship ---[facility]--- Patient Care Team: Nunu Cortez MD as PCP - General (Family Medicine) Bakari Silva MD (Hematology and Oncology) se Vascular US Mesenteric Artery Duplex Complete is scheduled for: Date: 07/14/2023 Time: 8:20 am Location: [place] Information relayed to patient via mail, phone and [employer]. Orders in EPIC. Auth NAN documented in this encounter [facility] 07-05-2023 Instructions Rebecca Lorenzo PA-C - 07/05/2023 1:00 PM EDT Referral to hepatobiliary - Dr. Rosario or Dr. Rodriguez Schedule Mesenteric Duplex US documented in this encounter [facility] 07-05-2023 Instructions Rebecca Lorenzo PA-C - 07/05/2023 1:00 PM EDT Referral to hepatobiliary - Dr. Rosario or Dr. Rodriguez Schedule Mesenteric Duplex US documented in this encounter [facility] 07-05-2023 Note Referral to hepatobi liary - Dr. Rosario or Dr. Rodriguez Schedule Mesenteric Duplex US [facility] 06-24-2023 Hospital Discharg e instructions CHRIS Butt CNP - 06/24/2023 11:17 PM EST Your lipase was slightly elevated above the normal but your CT scan does not show any reason this would be or abnormalities that explain your pain. Please follow up with your PCP and with your surgery referral. The following attachments cannot be sent through Care Everywhere.Abdominal Pain, Adult ED (Thai)Nausea and Vomiting, Adult ED (Thai)documented in this encounter [facility] 06-24-2023 Emergency department Note Per ED reg, patient states that the doctor is trying to poison her. Anyi Ruelas RN 06/24/232199 [facility] 06-24-2023 Emergency department Note Per [...] Culture. Procedure Abnormality Status --------- ------ Complete Urinalysis[[id number]] Normal Final result Please view results for [...] AM PATIENT REFERRED TO: Nunu Cortez MD [facility] [place] [facility] [id number] Schedule an appointment as soon as possible [...] symptoms after having a HIDA scan at [facility] yesterday. Patient states that since the scan her extremities have been falling asleep. Patient is mostly complaining of abdominal pain, but wants to get the other strange symptoms checked out. Patient also states I feel like I have been getting electrocuted through my body today and that started this morning. Patient ambulatory through triage. documented in this encounter [facility] 06-24-2023 Emergency department Triage note [...] started this morning. Patient ambulatory through triage. [facility] 06-24-2023 Physician Emergency department Note EMERGENCY [...] Culture. Procedure Abnormality Status --------- ------ Complete Urinalysis[[id number]] Normal Final result Please view results for [...] AM PATIENT REFERRED TO: Nunu Cortez MD [facility] [place] [facility] [place] [address] Schedule an appointment as soon as possible [...] Emergency Medicine Provider CHRIS Butt CNP 06/25/2331 [facility] 06-24-2023 Telephone encounter Note Name of caller: Jerrica Contact phone number: [phone] (F) Relationship to Patient: patient Provider: Dr. Posey Practice: [facility] Chief Complaint/Reason for Call: Jerrica is requesting a call back to schedule a new patient appointment with 06/24/23 referral for Dx: Postprandial RUQ pain. Please contact Jerrica and advise. Best time of day caller can be reached: Any Patient advised that office/PCP has 24-48 business hours to return their call: Yes [facility] 06-24-2023 Miscellaneous Notes Name of caller: Jerrica Contact phone number: [phone] (F) Relationship to Patient: patient Provider: Dr. Posey Practice: [facility] Chief Complaint/Reason for Call: Jerrica is requesting a call back to schedule a new patient appointment with 06/24/23 referral for Dx: Postprandial RUQ pain. Please contact Jerrica and advise. Best time of day caller can be reached: Any Patient advised that office/PCP has 24-48 business hours to return their call: Yes documented in this encounter [facility] 06-24-2023 Note Talked with Jerrica. Wanting evaluation by surgeon as imaging as not found clear etiology of symptoms. Will place referral to ALS. [facility] 06-23-2023 Miscellaneous Notes HIDA scan shows normal biliary function in response to CCK. documented in this encounter [facility] 06-23-2023 Progress note Formatting of t his note might be different from the original. HIDA scan shows normal biliary function in response to CCK. [facility] Work Phone: 06-18-2023 Miscellaneous Notes Faxed clearance form. Will await dental extraction date and schedule DDAVP at [place]. The postdoctoral research fellow office (Pa Grant and Peggy) sent a [...] visit? Thank you. documented in [facility] encounter [facility] 06-16-2023 Discharge summary Note Date/Time June 16, 2023 12:03pm [facility] Medical Records Department [address] [place] [address] Emergency Department Summary 06/16/23 MR#: [id number] Acct: [id number] Name: JERRICA SUGGS Rep #:[id number] : 1995 28 From: Branden Huang MD [...] extensive workup by GI doctors at the [facility] and also currently seeing GI at [facility]. She had a CAT scan herein February that showed enteritis. She has had upper and lower endoscopy through the [facility] but was unremarkable with a biopsy. She had a recent gastric emptying study at [facility] which was negative and has a [...] care physician and her GI doctors at [facility]. History & Record Review Discussion w/independent [...] 74.1 H Lymph % (Auto) 16.4 L Stanislaus % (Auto) 5.7 Eos % (Auto) 2.8 [...] rest. Follow-up with your GI doctors at [facility] for further evaluation [facility]. Disposition Disposition: Home, Self Care What to do if you have Problems For any increased pain, shortness of breath, bleeding, nausea or vomiting, chestpain, or any unexpected problems, contact your Primary Care Provider. Call [facility] ([phone]) or report to the closest Emergency Room. Call 911 if necessary. 06/16/23 1346 <Electronically signed by Branden Huang MD> Cosigner Signature (if applicable): CC: Dr. Nunu Cortez MD ~ Signed [facility] Work Phone: [phone]) 251-922602-06-2024 Telephone encounter Note* Telephone Encounter - CHRIS Mcmanus CNP - 06/01/2023 1:06 PM EST Reviewed. Thank you! [facility] [id number] Miscellaneous Notes* Telephone Encounter - CHRIS Mcmanus CNP - 06/01/2023 1:06 PM EST Reviewed. Thank you! * Telephone Encounter - Mi Anaya MA - 06/01/2023 11:37 AM EST Received records of CT patient had completed at [facility] Scanned into media for provider to review. Thank you! documented in this [facility]02-06-2024 Telephone encounter Note* Telephone Encounter - Mi Anaya MA - 06/01/2023 11:37 AM EST Received records of CT patient had completed at [facility] Scanned into media for provider to review. Thank you! [facility] [id number] History of Present illness Narrative* Mario Fernando, CHRIS - TREV - 05/26/2023 10:00 AM EST Images from the original note were not included. [facility] GASTROENTEROLOGY [address] [facility] [address] Dept: [phone] Dept Loc: [phone] Visit type: New Reason for Visit: New [...] loss of ~ 50# --prior work-up at [facility] 2022-EGD, colonoscopy, RUQ US without findings to explain symptoms --request CT report from [facility] (CT A/P 02/2023) --04/20/2023 CBC, CMP, [...] is not with physician; discussed scheduling in [place] office with MD, patient prefers not to go to [place]; discussed alternative referral to [facility] vs [facility] main, patient [...] JACKELYN. Expressed frustration no MD clinic in [place] office. She has previously been evaluated at [facility]-RUQ US, EGD and colonoscopy 2022 without findings to explain symptoms. Most recent GI visit at [facility] 10/01/22. HIDA ordered but not completed.Patient expresses frustration with lack of findings on prior testing and incurred cost. She had related ED visit at [facility] February 2023-CT A/P with contrast completed (report unavailable, but she provides impression on phone-dilated small bowel loops LUQ- possible enteritis-no obstruction). [facility] GI at [place] was consulted while in ED and capsule [...] Heart palpitations 06/18/2016 Overview Note: 06/17/16- Saw Protective Signal Operations Supervisor/ Dr Tillman for cardiac palpitations and tachycardia. Taking Inderal 60mg daily. To schedule f/u appt in 3 months. pmc/hrr Von Willebrand disease (HCC) 06/05/2016 Overview Note: 11-19 Referral to [facility] Aw 11/21/15 - has type 1 disease (mild), uses ddavp and amicar prn procedures. appt w/ heme, dr wright 11/22/15. [facility] Consult scanned 12/24/15. pmc/hrr 11/21/15- [facility] appt 11/27/2015. [facility] 11/26 [facility] Von Willebrand Type I, mild symptoms, [...] reflux 03/23/2016 Overview Note: 11-19 referral to [facility] Aw 11/21/15 - sees jermaine ring, [...] Pre-Op/Pre-Procedure Diagnosis: 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 with vomiting Bleeding [place] Post-Op/Post-Procedure Diagnosis: Normal gastroscopy. Biopsies taken to [...] sonographic appearance of the right upper quadrant. Manager Land: GURPREET Transcribe Date/Time: Jun 11 2022 6:04P GEOVANNY Mcmanus 12:23 PM 05/26/23 documented in this [facility]01-31-2024 Instructions* Patient Instructions* Krystin Delarosa MA - 05/26/2023 10:00 AM EST --Please call office with any questions or concerns! [phone] --request copy of CT report from [facility] (Feb 2023) --Schedule radiology test (HIDA [...] through Care Everywhere. * Irritable Bowel Syndrome (Thai) * Nausea and Vomiting, Adult (Thai) * Severe Abdominal Pain (Thai) * Gastroparesis (Delayed Gastric Emptying) (Thai) documented in this encounterSLutheran [id number] Telephone encounter Note* Telephone Encounter - Krystin Delarosa MA - 04/22/2023 12:35 PM EST Noted. Thank you [facility] [id number] Miscellaneous Notes* Telephone Encounter - Krystin Delarosa MA - 04/22/2023 12:35 PM EST Noted. Thank you * Telephone Encounter - Kenya Sales - 04/22/2023 12:12 PM EST New Pt referral received from Patient's PCP for - Unspecified abdominal pain. Pt requested message be sent to provider re previous testing. Pt states [facility] Pt states 02/2023 seen at [facility] for CT with contrast. States results showed non specificed fluid filled small bowels loops - mildly dilated bowel loop inupper left abdomen. No evidence of obstruction. Mild Sigmoid diverticulosis without evidence of acute diverticulitis. Pt states she will have [place] records faxed or sent through her [employer] prior to her 05/26 [facility] appt. Thank you! documented in this encounterSLutheran HospitalDlvgku01-23-1461 Telephone encounter Note* Telephone Encounter - Kenya Sales - 04/22/2023 12:12 PM EST New Pt referral received from Patient's PCP for - Unspecified abdominal pain. Pt requested message be sent to provider re previous testing. Pt states Medical records [facility] from 09/22/22 colonoscopy / EGD can be seen in her [facility] chart. Pt states 02/2023 seen at [facility] for CT with contrast. States results showed non specificed fluid filled small bowels loops - mildly dilated bowel loop inupper left abdomen. No evidence of obstruction. Mild Sigmoid diverticulosis without evidence of acute diverticulitis. Pt states she will have [place] records faxed or sent through her [employer] prior to her 05/26 [facility] appt. Thank you! [facility] [id number] Telephone encounter Note* Telephone Encounter - Jeanine Ring RN - 03/13/2023 11:41 AM EST S: Patient is calling the [facility] with a medication problem. B: Medication: [...] to not have transmitted to pharmacy. Called [facility] to verify and script not received, [...] confirm for pharmacy.) Protocols used: Medication Question [id number] [facility] [id number] Miscellaneous Notes* Telephone Encounter - Jeanine Ring RN - 03/13/2023 11:41 AM EST S: Patient is calling the [facility] with a medication problem. B: Medication: [...] to not have transmitted to pharmacy. Called [facility] to verify and script not received, [...] confirm for pharmacy.) Protocols used: Medication Question [id number] documented in this [facility]10-21-2023 Telephone encounter Note* Telephone Encounter - Alyssa Covington RN - 02/13/2023 11:50 AM EDT S: Patient spoke with [facility] nurse regarding covid positive B: Onset [...] Patient has Von Willebrand disease. R: Per [facility] directives, patient was scheduled for a [facility] [...] SOB Protocols used: Coronavirus (COVID-19) Diagnosed or [id number] [place] [id number] Miscellaneous Notes* Telephone Encounter - Alyssa Covington RN - 02/13/2023 11:50 AM EDT S: Patient spoke with [facility] nurse regarding covid positive B: Onset [...] Patient has Von Willebrand disease. R: Per [facility] directives, patient was scheduled for a [facility]al[facility] [...] SOB Protocols used: Coronavirus (COVID-19) Diagnosed or [id number] documented in this [facility]10-18-2023 Miscellaneous Notes* Telephone Encounter - Johanna Tolbert - 02/10/2023 3:52 PM EDT Called [facility] [phone] with no answer. Office closed. Left message with request for procedure plan to assist with bleeding risks. [facility] Telephone encounter Note * Telephone Encounter - Morenita Loyd LPN - 01/25/2023 2:42 PM EDT Shirley from [facility] called looking for last Pap. She will have her sign ALANA and fax itto us. Advised of no records of pap [facility] [id number] Miscellaneous Notes* Telephone Encounter - Morenita Loyd LPN - 01/25/2023 2:42 PM EDT Shirley from [facility] called looking for last Pap. She will have her sign ALANA and fax itto us. Advised of no records of pap documented in this [facility]05-31-2023 History of Present illness Narrative* Bakari Silva MD - 09/23/2022 2:04 PM EDT Name: Jerrica Suggs Date of : 1995 PCP: Nunu Cortez MD Referring Provider: Danyell Elizabeth PA-C Date of Service: 09/23/2022 Diagnosis: Von Willebrand disease type I, diagnosed at age 17 at [facility], when prolonged PTTwas noted in preparation [...] to EGD and colonoscopy, and IV tranexamic [id number] mg prior to discharge. She was provided [...] weeks Bakari Silva MD Hematology and Oncology [facility] documented in this encounterCity Hospital05-31-2023 Instructions* Patient Instructions* Bakari Silva MD - 09/23/2022 11:49 AM EDT Please continue tranexamic acid, and call if you develop any additional issues with bleeding. Please return to see Dr. Silva (virtual/video) visit in 4 weeks at the [place] location. documented in this encounterCity Hospital05-30-2023 Miscellaneous Notes* Telephone Encounter - Migdalia Nugent MA - 09/22/2022 1:40 PM EDT Patient called office and wanted to speak to the transaction manager. I got the call. Patient was [...] be switched to another medication and play chilean rulet with her medications. Patient was upset [...] her. Migdalia Nugent MA documented in this encounterCity Hospital05-30-2023 Miscellaneous Notes* Discharge Instr - Nursing - Tacho Branham RN - 09/22/2022 10:57 AM EDT Follow up pathology Follow up with [facility] in GI clinic Amicar sent to [facility]- [address] [place] [address] -use if bleeding, up to 7 days documented in this encounterCity Hospital05-30-2023 Nurse Note* Lesley Dinero RN - 09/22/2022 10:30 AM EDT Patient has been very agitated. Complaining of high anxiety. Medicated with versed 2 mg at 9:01 and 9:40 with little to no relieve of anxiety. Dr. Mitchell aware. documented in this encounterCity Hospital05-30-2023 Surgical operation note* Operative Report - Lyubov Begum MD - 09/22/2022 10:22 AM EDT OPERATIVE/PROCEDURE REPORT LOG ID: [id number] Surgery/Procedure Date: Incision/Procedure Start Time: 10:32 AM Incision Close/Procedure End Time: 10:47 AM Surgeon(s)/Proceduralist(s) and Perinatal Coordinator(s): Lyubov Begum MD No Additional Staff Procedure(s): Esophagogastroduodenoscopy (EGD) with biopsy Colonoscopy Anesthesia: Monitored anesthesia Care (MAC) Brief History: 27/F with abdominal pain with vomiting for upper endoscopy. Also c/o- bleeding [place] for colonoscopy Procedure Details: The patient was [...] Pre-Op/Pre-Procedure Diagnosis: 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 with vomiting Bleeding [place] Post-Op/Post-Procedure Diagnosis: Normal gastroscopy. Biopsies taken to rule out celiac disease. Colonoscopy- small internal hemorrhoids Specimens: See above EBL: None Complications: None Recommendations: Follow up pathology Follow up with [facility] in GI clinic I/primary surgeon/proceduralist performed the procedure with assistance. Lyubov Begum MD SIGNATURE: Lyubov Begum MD PATIENT NAME: Jerrica Suggs DATE: September 22, 2022 TIME: 10:50 AM PAGER/CONTACT #: [phone] documented in this encounterCity Hospital05-30-2023 History of Present illness Narrative* Cherry Barber APRN.TREV - 09/22/2022 8:30 AM EDT H&P completed by Bakari Silva MD at 09/22/2022 6:13 AM documented in this encounterCity Hospital05-12-2023 History of Present illness Narrative* Bakari Silva MD - 09/04/2022 11:49 AM EDT VIRTUAL VISIT PROGRESS NOTE This is a virtual visit using [employer] video visit. It required patient-provider interaction for [...] PCP: Nunu Cortez MD Referring Provider: Danyell Elizbaeth PA-C Date of Service: September 04, 2022 Diagnosis: Von Willebrand disease type I, diagnosed at age 17 at [facility], when prolonged PTTwas noted in preparation [...] Jerrica. Bakari Silva MD Hematology and Oncology [facility] documented in this encounterCity Hospital05-01-2023 Miscellaneous Notes* Telephone Encounter - Johanna Uribe [...] patient set up for her scopes at [facility]. New orders placed. * Telephone Encounter - [...] an EGD and colonoscopy locally, here in [place], as we would need to coordinate? Thank you. Dante and Hematology team at [facility]- please retrieve Dr. Wright' notes about this patient if at all possible, as patient was previously seeing Dr. Wright until the early . documented in this encounterCity Hospital05-01-2023 Instructions* Patient Instructions* Danyell Elizabeth PA-C - [...] If you do not have a responsible gravel truck driver (family member or friend) withyou to take you home, your exam cannot be done with sedation and will be cancelled. Please bring a list of all of your current medications, including any Vxrg-ypv-Oryriyv medications with you. Medications If you take [...] your exam. 2 03/2019 documented in this encounterCity Hospital05-01-2023 History of Present illness Narrative* Bakari Silva MD - 08/24/2022 11:04 AM EDT Name: Jerrica Suggs Date of : 1995 PCP: Nunu Cortez MD Referring Provider: Danyell Elizabeth PA-C Date of Service: August 24, 2022 Diagnosis/ Reason for Consultation: Von Willebrand disease type I, diagnosed at age 17 at [facility], when prolonged PTTwas noted in preparation [...] care. Bakari Silva MD Hematology and Oncology [facility] documented in this encounterCity Hospital04-12-2023 Miscellaneous Notes* Telephone Encounter - Milena Cottrell - 08/05/2022 2:32 PM EDT Patient called in upset her procedures have not been scheduled. Called [facility] and explained patient needing infusion prior to procedures. They needed ordered placed for the infusion. Patient did not see a [facility] Diagnostic Radiologic Technologist so the order cannot be used. Called Dr. Moreira office and spoke with the nurses Amanda and Maddy. Asked if she would be able to have her infusion with them and then drive to a [facility] hospital to have the scopes after. Due to the timing constraints they stated she could not. They stated that Dr. Moreira had suggested her to see a specialist at [facility] regarding her [employer] and patient declined. After talking with Dr. Moreira office I called and found an appointment with [facility] Hematology on 08/20. I also called [facility] to see when there 1st available office appointment was (10/19). Called patient to give her the option to either establish with [facility] for Hematology or transfer care to [facility]. Patient was extremely upset that she doesn't understand why we can't take orders from another system. After explaining this to her she decided to take the appointment with Dr. Silva. We will then coordinate with Dr. Silva to get her scheduled for her colon and EGD at [facility] with Dr. Begum. Milena Cottrell * Telephone Encounter - Danyell Elizabeth PA-C - 08/05/2022 2:29 PM EDT New referral to Hematology with [facility] placed. documented in this encounterCity Hospital03-14-2023 History of Present illness Narrative* Jeff Purvis [...] will continue IV DDAVP for two days, [id number], outpatient (two doses). We will also administer amicar - Amicar PO solution (25%) 15 mg q6h for one day before procedures and 6 days after. Review of notes we were able to obtain from 2017 imply amicar was helpful and didn't cause any excess gi tox as previously though. I also offered a referral to the patient to see an adult simulation specialist who specializes in bleeding disorders at [facility] or [facility]. Periprocedural Humate also an option and [...] they are currently in the state of [place]. If the patient is a minor, permission has been obtained by the parent orguardian for the patient to receive medical care at this visit. Subjective HPI Please note: some documentation pending. 27W first diagnosed with vw type 1 2011 at [facility]. She was characterized as a DDAVP [...] here now as the gi team in [place] is concern re: bx with planned egd [...] [No matching plan found] documented in this [facility]03-13-2023 Emergency department Note* Renee Bearden RN - 07/06/2022 1:58 PM EDT Unable to establish IV access without success despite multiple attempts by multiple staff members. Physician aware and pt medicated per orders with IM medication. Pt is aware of plan of care with CT and agrees to additional attempts for IV insertion for fluids. Renee Bearden RN 07/06/[address] [facility] [id number] Emergency department Note* Renee Bearden RN - 07/06/2022 1:58 PM EDT Pt resting in cot with family at bedside. Warm blankets provided. Renee Bearden RN 07/06/[address] [facility] [id number] Emergency department Note* Jay Dave MD - 07/06/2022 1:58 PM EDT [facility] ED EMERGENCY DEPARTMENT ENCOUNTER Pt Name: Jerrica [...] bleeding disorder for which she sees a simulation specialist in fact has appointment tomorrow. She is [...] Culture. Procedure Abnormality Status --------- ------ Complete Urinalysis[[id number]] Abnormal Final result Please view results for [...] which was negative. Radiologic diagnostics interpreted by nh: film images such as CT, Ultrasound and [...] or vomiting for up to 3 days. @[facility]([id number]:LAST:1)@ (Comment: Please notethis report has been produced using speech recognition software and may contain errors related to that system including errors in grammar, punctuation, and spelling, as well as words and phrases that may be inappropriate.If there is any questions or concerns please feel free tocontact the dictating provider for clarification). Jay Dave MD (electronically signed) Attending Emergency Physician Jay Dave MD 07/06/22 4230 * Renee Bearden RN - 07/06/2022 1:58 [...] insertion for fluids. Renee Bearden RN 07/06/22 1544 * Renee Bearden RN - 07/06/2022 1:58 PM EDT Pt resting in cot with family at bedside. Warm blankets provided. Renee Bearden RN 07/06/22 1720 documented in this encounterSLutheran [id number] Emergency department Triage note* Renee Bearden RN - 07/06/2022 1:58 PM EDT Pt ambulatory to room 3 with c/o abdominal pain, nausea, vomiting and diarrhea. Pt reports that nikolas had symptoms intermittently for over a year with symptoms increasing in the last week and not improved with use of prescribed meds. Pt denies any blood noticed in stool/vomit. [facility] [id number] Physician Emergency department Note* Jay Dave MD - 07/06/2022 1:58 PM EDT [facility] ED EMERGENCY DEPARTMENT ENCOUNTER Pt Name: Jerrica [...] bleeding disorder for which she sees a simulation specialist in fact has appointment tomorrow. She is [...] Culture. Procedure Abnormality Status --------- ------ Complete Urinalysis[[id number]] Abnormal Final result Please view results for [...] which was negative. Radiologic diagnostics interpreted by nh: film images such as CT, Ultrasound and [...] or vomiting for up to 3 days. @[facility]([id number]:LAST:1)@ (Comment: Please notethis report has been produced using speech recognition software and may contain errors related to that system including errors in grammar, punctuation, and spelling, as well as words and phrases that may be inappropriate.If there is any questions or concerns please feel free tocontact the dictating provider for clarification). Jay Dave MD (electronically signed) Attending Emergency Physician Jay Dave MD 07/06/[address] [facility] [id number] Miscellaneous Notes* Telephone Encounter - Danyell Elizabeth [...] Seeing Dr. Purvis tomorrow. documented in this encounterCity Hospital03-07-2023 Telephone encounter Note * Telephone Encounter - Izzy Guillermo - 06/30/2022 2:37 PM EST Received a call from Dante at [facility] endoscopy. She wanted to coordinate the infusions withthe endoscopy. [facility] [id number] Miscellaneous Notes* Telephone Encounter - Izzy Giullermo - 06/30/2022 2:37 PM EST Received a call from Dante at [facility] endoscopy. She wanted to coordinate the infusions withthe endoscopy. * Telephone Encounter - Maddy Calle RN - 06/29/2022 10:55 AM EST Pt has an appt on 07-07-22 to go over plan. * Telephone Encounter - Jeff Purvis MD - 06/29/2022 10:32 AM EST Was able to discuss with Javier Elizabeth of [facility] GI team. Prelim plan would be pre procedural DDAVP and then make sure patient has intranasal DDAVP for after. We may also go with just self administered ddavp; I will review [facility] documentation. documented in this encounterSLutheran [id number] Instructions* Patient Instructions* Danyell Elizabeth PA-C - [...] If you do not have a responsible gravel truck driver (family member or friend) withyou to take you home, your exam cannot be done with sedation and will be cancelled. Please bring a list of all of your current medications, including any Akgt-rsv-Gxeojif medications with you. Medications If you take [...] your exam. 2 03/2019 documented in this encounterCity Hospital03-06-2023 Miscellaneous Notes* Telephone Encounter - Danyell Elizabeth PA-C - 06/29/2022 2:46 PM EST Received call from Dr. Purvis, [facility] Hematology. Clearing patient for EGD/colonoscopy but requestingIV DDAVP prior to procedures. Orders updated. Please let patient know, will need to be done at [facility] Main. documented in this encounterCity Hospital03-06-2023 Telephone encounter Note * Telephone Encounter - Maddy Calle RN - 06/29/2022 10:55 AM EST Pt has an appt on 07-07-22 to go over plan. [id number] Telephone encounter Note* Telephone Encounter - Jeff Purvis MD - 06/29/2022 10:32 AM EST Was able to discuss with Javier Elizabeth of [facility] GI team. Prelim plan would be pre procedural DDAVP and then make sure patient has intranasal DDAVP for after. We may also go with just self administered ddavp; I will review [facility] documentation. [facility] Work Phone: [phone]) 775-345302-28-2023 History of Present illness Narrative* Jeff Purvis [...] 2017. After this clinical encounter, I called [facility] at [phone] to discuss with Danyell Elizabeth. Left vm [...] diagnosed with vw type 1 2011 at [facility]. She was characterized as a DDAVP [...] here now as the gi team in [place] is concern re: bx with planned egd [...] [No matching plan found] documented in this [facility]02-15-2023 History of Present illness Narrative* Jerrica [...] Not applicable SIGNED BY: Jerrica Scott RDMS [facility] June 10, 2022 11:03 AM documented in this encounterCity Hospital02-14-2023 Miscellaneous Notes* Addendum Note - Danyell Elizabeth PA-C - 06/09/2022 9:29 AM ESTAddended by: DANYELL ELIZABETH on: 06/09/2022 09:29 AM Modules accepted: Orders [...] send Levsin to pharmacy. documented in this encounterCity Hospital02-07-2023 Instructions* Patient Instructions* Danyell Elizabeth PA-C - [...] If you do not have a responsible gravel truck driver (family member or friend) withyou to take you home, your exam cannot be done with sedation and will be cancelled. Please bring a list of all of your current medications, including any Bpxr-vgb-Sslgzyr medications with you. Medications If you take [...] your exam. 2 03/2019 documented in this encounterCity Hospital02-07-2023 History of Present illness Narrative* Danyell Elizabeth [...] for internal providers or letter via the [employer] for external providers. HPI: Jerrica [...] with more than 50% of the total fyvw-tx-bcxq time of the visit in counseling / coordination of care. I have confirmed and edited as necessary, the PFSH and ROS obtained by others. Danyell Elizabeth PA-C June 02, 2022 11:27 AM documented [facility]* Diagnosis Bilious vomiting with nausea- Primary Generalized abdominal pain 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, generalized Diarrhea, unspecified type Rectal bleeding Hemorrhage of rectum and anus documented in this [facility]* Diagnosis Generalized abdominal pain- Primary 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, generalized Diarrhea, unspecified type Bilious vomiting with nausea documented in this [facility]* Diagnosis Generalized abdominal pain 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, generalized Diarrhea, unspecified type documented in this encounter [facility] note* Diagnosis Generalized abdominal pain- Primary 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, generalized Diarrhea, unspecified type Rectal bleeding Hemorrhage of rectum and anus Bilious vomiting with nausea documented in this encounter [facility] note* Diagnosis Generalized abdominal pain- Primary 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, generalized Diarrhea, unspecified type Bilious vomiting with nausea documented in this encounter [facility] note* Diagnosis Von Willebrand disease- Primary Von Willebrand's disease documented in this encounter [facility] note* Diagnosis Von Willebrand disease Type I- Primary Von Willebrand's disease documented in this encounter [facility] note* Diagnosis Bilious vomiting without nausea- Primary Generalized abdominal pain 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, generalized Diarrhea, unspecified type Rectal bleeding Hemorrhage of rectum and anus documented in this encounter [facility] note* Diagnosis Encounter for preoperative assessment Von Willebrand disease Type I Von Willebrand's disease Bilious vomiting without nausea Generalized abdominal pain 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, generalized Diarrhea, unspecified type Rectal bleeding Hemorrhage of rectum and anus documented in this encounter [facility] note* Diagnosis Von Willebrand disease Type I Von Willebrand's disease Bilious vomiting without nausea Generalized abdominal pain 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, generalized Diarrhea, unspecified type Rectal bleeding Hemorrhage of rectum and anus documented in this encounter [facility] note* Diagnosis Bilious vomiting without nausea Generalized abdominal pain 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, generalized Diarrhea, unspecified type Rectal bleeding Hemorrhage of rectum and anus documented in this encounter [facility] note* Diagnosis Von Willebrand disease Type I- Primary Von Willebrand's disease Encounter for preoperative assessment documented in this encounter [facility] note* Diagnosis Anesthesia of skin Disturbance of skin sensation Paresthesia of skin documented in this encounter [facility] note* Diagnosis Von Willebrand disease Type I- Primary Von Willebrand's disease documented in this encounter [facility] note* Diagnosis Anesthesia of skin- Primary Disturbance of skin sensation Paresthesia of skin Anesthesia of skin Disturbance of skin sensation Paresthesia of skin documented in this encounter [facility] note* Diagnosis Bilious vomiting with nausea Generalized abdominal pain 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, generalized Diarrhea, unspecified type documented in this encounter [facility] note* Diagnosis Nausea and vomiting, unspecified vomiting type- Primary Postprandial RUQ pain Irritable bowel syndrome with both constipation and diarrhea Unintentional weight loss Loss of weight documented in this encounter [facility] note* Diagnosis Nausea and vomiting, unspecified vomiting type documented in this encounter [facility] noteNo assessment information availableWCleveland Clinic [facility] Work Phone: [facility]* Diagnosis Postprandial RUQ pain documented in this encounter [facility] note* Diagnosis 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, chronic, right upper quadrant- Primary Elevated lipase Nausea and vomiting, unspecified vomiting type documented in this encounter [facility] note* Diagnosis Postprandial epigastric pain- Primary Elevated lipase Pancreatic lesion Weight loss Loss of weight documented in this encounter [facility] note* Diagnosis Postprandial epigastric pain- Primary Elevated lipase Pancreatic lesion Weight loss Loss of weight documented in this encounter [facility] note* Diagnosis Postprandial epigastric pain Elevated lipase Pancreatic lesion documented in this encounter [facility] note* Diagnosis Postprandial epigastric pain documented in this encounter [facility] note* Diagnosis Postprandial epigastric pain Elevated lipase Pancreatic lesion documented in this encounter [facility] note* Diagnosis Von Willebrand disease (HCC)- Primary Von Willebrand's disease documented in this encounter [facility] note* Diagnosis Preop testing- Primary Unspecified pre-operative examination Epigastric pain 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, epigastric documented in this encounter [facility] note* Diagnosis Von Willebrand disease (HCC)- Primary Von Willebrand's disease Encounter for preoperative assessment documented in this encounter [facility] note* Diagnosis Von Willebrand disease Type I- Primary Von Willebrand's disease Encounter for preoperative assessment documented in this encounter [facility] note* Diagnosis Epigastric pain- Primary 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, epigastric Epigastric pain 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, epigastric Von Willebrand disease (HCC) Von Willebrand's disease documented in this encounter [facility] note* Diagnosis Encounter for postoperative care- Primary documented in this encounter [facility] note* Diagnosis Von Willebrand disease- Primary Von Willebrand's disease documented in this encounter [facility] note* Diagnosis Generalized abdominal pain- Primary 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, generalized Nausea and vomiting, unspecified vomiting type Dehydration documented in this encounter [facility] note* Diagnosis Von Willebrand disease Type I Von Willebrand's disease Encounter for preoperative assessment Von Willebrand disease Type I Von Willebrand's disease Acute cough documented in this encounter [facility] note* Diagnosis Von Willebrand disease Type I Von Willebrand's disease Encounter for preoperative assessment Von Willebrand disease Type I Von Willebrand's disease Von Willebrand disease (HCC)- Primary Von Willebrand's disease Rectal bleeding Hemorrhage of rectum and anus [facility] Additional Instructions Use your nausea medication at home as needed. Plenty of fluids and rest. Follow-up with your GI doctors at [facility] for further evaluation and your HIDA scan next week.[facility] Work Phone: Hospital Discharge instructions* Attachments The following attachments cannot be sent through Care Everywhere. * Dehydration Discharge Instructions, Adult (Thai) * Nausea and Vomiting, Adult ED (Thai) * Abdominal Pain, Adult ED (Thai) documented in this [facility] for [facility] (narrative)* Outpatient Procedure (Routine) - Pending Review Specialty Diagnoses / Procedures Referred By Contsu t Referred To Contact [facility] Diagnoses Generalized abdominal pain Diarrhea, unspecified type Rectal bleeding Procedures COLONOSCOPY DIAGNOSTIC COLONOSCOPY FLX DX W/COLLJ SPEC WHEN PFRMD Danyell Elizabeth PA-C [address] [facility] [place] [place] [address] [facility] [place] [address] [place] [address] Referral ID Status Reason Start Date Expiration Date Visits Requested Visits Authorized [id number] Pending Review Auto-Generat ed Referral 06/02/2022 06/02/2023 1 1 * Outpatient Procedure (Routine) - Pending Review Specialty Diagnoses / Procedures Referred By Contac t Referred To Contact [facility] Diagnoses Bilious vomiting with nausea Generalized abdominal pain Procedures EGD DIAGNOSTIC ESOPHAGOGASTRODUODENOS COPY TRANSORAL DIAGNOSTIC Danyell Elizabeth PA-C [address] [place] [address] [place] [address] Referral ID Status Reason Start Date Expiration Date Visits Requested Visits Authorized [id number] Pending Review Auto-Generat ed Referral 06/02/2022 06/02/2023 1 1 * Diagnostic Procedure Only (Routine) - Authorized Specialty Diagnoses / Procedures Referred By Contac t Referred To Contact [facility] Diagnoses Bilious vomiting with nausea Generalized abdominal pain Diarrhea, unspecified type Procedures US ABD RT UPPER QUADRANT US ABDOMINAL REAL TIME W/IMAGE LIMITED Danyell Elizabeth PA-C [address] [place] [address] [facility] Referral ID Status Reason Start Date Expiration Date Visits Requested Visits Authorized [id number] Authorized Auto-Generat ed Referral 06/02/2022 07/02/2023 1 1 [facility] for referral (narrative)* Outpatient Procedure (Routine) - Pending Review Specialty Diagnoses / Procedures Referred By Contac t Referred To Contact [facility] Diagnoses Generalized abdominal pain Diarrhea, unspecified type Rectal bleeding Procedures COLONOSCOPY DIAGNOSTIC COLONOSCOPY FLX DX W/COLLJ SPEC WHEN PFRMD Danyell Elizabeth PA-C [address] [place] [address] [address] Referral ID Status Reason Start Date Expiration Date Visits Requested Visits Authorized [id number] Pending Review Auto-Generat ed Referral 06/29/2022 06/30/2023 1 1 * Outpatient Procedure (Routine) - Pending Review Specialty Diagnoses / Procedures Referred By Contac t Referred To Contact [facility] Diagnoses Generalized abdominal pain Bilious vomiting with nausea Procedures EGD DIAGNOSTIC ESOPHAGOGASTRODUODENOS COPY TRANSORAL DIAGNOSTIC Danyell Elizabeth PA-C [address] [place] [address] [facility] [address] [place] [address] Referral ID Status Reason Start Date Expiration Date Visits Requested Visits Authorized [id number] Pending Review Auto-Generat ed Referral 06/29/2022 06/30/2023 1 1 [facility] for referral (narrative)* Outpatient Procedure (Routine) - Pending Review Specialty Diagnoses / Procedures Referred By Contac t Referred To Contact [facility] Diagnoses Generalized abdominal pain Diarrhea, unspecified type Rectal bleeding Procedures COLONOSCOPY DIAGNOSTIC COLONOSCOPY FLX DX W/COLLJ SPEC WHEN PFRMD Danyell Elizabeth PA-C [address] [place] [address] [facility] [address] [place] [address] Referral ID Status Reason Start Date Expiration Date Visits Requested Visits Authorized [id number] Pending Review Auto-Generat ed Referral 08/24/2022 08/25/2023 1 1 * Outpatient Procedure (Routine) - Pending Review Specialty Diagnoses / Procedures Referred By Contac t Referred To Contact [facility] Diagnoses Bilious vomiting without nausea Generalized abdominal pain Procedures EGD DIAGNOSTIC ESOPHAGOGASTRODUODENOS COPY TRANSORAL DIAGNOSTIC Danyell Elizabeth PA-C [address] [place] [address] [facility] [place] [address] [place] [address] Referral ID Status Reason Start Date Expiration Date Visits Requested Visits Authorized [id number] Pending Review Auto-Generat ed Referral 08/24/2022 08/25/2023 1 1 [facility] for referral (narrative)* Outpatient Procedure (Routine) - Closed Specialty Diagnoses / Procedures Referred By Contac t Referred To Contact Diagnoses Generalized abdominal pain Diarrhea, unspecified type Rectal bleeding Bilious vomiting Procedures COLONOSCOPY DIAGNOSTIC COLONOSCOPY FLX DX W/COLLJ SPEC WHEN PFRMD Danyell Elizabeth PA-C [address] [place] [address] [address] [place] [address] Referral ID Status Reason Start Date Expiration Date V isits Requested Visits Authorized [id number] Closed Auto-Generate d Referral 09/22/2022 12/21/2022 1 1 * Outpatient Procedure (Routine) - Closed Specialty Diagnoses / Procedures Referred By Contac t Referred To Contact Diagnoses Bilious vomiting without nausea Generalized abdominal pain Procedures EGD DIAGNOSTIC ESOPHAGOGASTRODUODENOSCOPY TRANSORAL DIAGNOSTIC Danyell Elizabeth PA-C [address] [place] [address] [address] [place] [address] Referral ID Status Reason Start Date Expiration Date V isits Requested Visits Authorized [id number] Closed Auto-Generate d Referral 08/24/2022 08/25/2023 1 1 [facility] for referral (narrative)* Diagnostic Procedure Only (Routine) - Closed Specialty Diagnoses / Procedures Referred By Contac t Referred To Contact US IMAGING Diagnoses Bilious vomiting with nausea Generalized abdominal pain Diarrhea, unspecified type Procedures US ABD RT UPPER QUADRANT US ABDOMINAL REAL TIME W/IMAGE LIMITED Danyell Gann PA-C [address] [place] [address] [place] [address] Referral ID Status Reason Start Date Expiration Date V isits Requested Visits Authorized [id number] Closed Auto-Generate d Referral 06/02/2022 07/02/2023 1 1 [facility] for referral (narrative)* Consultation (Routine) - Pending Review Specialty Diagnoses / Procedures Referred By Contac t Referred To Contact General Surgery Diagnoses Postprandial epigastric pain Elevated lipase Pancreatic lesion Procedures [place] OFFICE/OUTPATIENT NEW HIGH MDM 60 MINUTES Rebecca Lorenzo PA-C [address] [place] [address] Son Rosario MD [address] [place] [id number] Referral ID Status Reason Start Date Expiration Date Visits Requested Visits Authorized [id number] Pending Review Specialty Services Required 07/05/2023 07/04/2024 1 1 * Imaging (Routine) - Pending Review Specialty Diagnoses / Procedures Referred By Contac t Referred To Contact Cardiology Diagnoses Postprandial epigastric pain Procedures Vascular US mesenteric artery duplex complete Rebecca Lorenzo PA-C [address] [place] [address] Referral ID Status Reason Start Date Expiration Date V isits Requested Visits Authorized [id number] Pending Review 07/05/2023 07/04/2024 1 1 [facility] for referral (narrative)* Consultation (Routine) - Pending Review Specialty Diagnoses / Procedures Referred By Contac t Referred To Contact General Surgery Diagnoses Postprandial epigastric pain Elevated lipase Pancreatic lesion Procedures [place] OFFICE/OUTPATIENT NEW HIGH MDM 60 MINUTES Rebecca Lorenzo PA-C [address] [place] [address] Son Rosario MD [address] [facility] [address] [place] [address] Referral ID Status Reason Start Date Expiration Date Visits Requested Visits Authorized [id number] Pending Review Specialty Services Required 07/05/2023 07/04/2024 1 1 * Imaging (Routine) - Authorized Specialty Diagnoses / Procedures Referred By Gino sharpe Referred To Contact Cardiology Diagnoses Postprandial epigastric pain Procedures Vascular US mesenteric artery duplex complete Rebecca Lorenzo PA-C [address] [facility] [address] [place] [address] Referral ID Status Reason Start Date Expiration Date V isits Requested Visits Authorized [id number] Authorized 07/05/2023 07/04/2024 1 1 [facility] for referral (narrative)No reason for referral information [facility]WC[facility]: Reqkjn for visit Narrative* Outpatient Procedure (Routine) - Closed Specialty Diagnoses / Procedures Referred By Gino sharpe Referred To Contact Diagnoses Generalized abdominal pain Diarrhea, unspecified type Rectal bleeding Bilious vomiting Procedures COLONOSCOPY DIAGNOSTIC COLONOSCOPY FLX DX W/COLLJ SPEC WHEN PFRMD Danyell Elizabeth PA-C [address] [place] [address] [facility] 1 [facility] [place] [address] Referral ID Status Reason Start Date Expiration Date V isits Requested Visits Authorized [id number] Closed Auto-Generate d Referral 09/22/2022 12/21/2022 1 1 [facility] Summary Purpose Family History No Family History Records FoundNo Family History Records FoundNo Family History Records FoundNo Family History Records FoundNo Family History Records FoundNo Family History Records FoundNo Family History Records FoundNo Family History Records FoundNo Family History Records Found Advance Directives No Advanced Directives Records FoundDocuments on File Type Date 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 No May 31, 2024 10:16am Do you have a Healthcare Power of Clinical Systems Educator? No August 31, 2024 4:28pm Reason for Referral Specialty Diagnoses / Procedures Referred By Contsu t Referred To Contact Diagnoses Von Willebrand disease (HCC) Procedures CONSULT TO HEMATOLOGY/ONCOLOGY OFFICE/OUTPATIENT [facility] MDM 60-74 MINUTES Danyell Elizabeth PA-C [address] [place] [address] Referral ID Status Reason Start Date Expiration Date Visits Requested Visits Authorized [id number] Pending Review PCP Requested Referral 08/05/2022 08/05/2023 1 1 Specialty Diagnoses / Procedures Referred By Contac t Referred To Contact Radiology Diagnoses Anesthesia of skin Paresthesia of skin Procedures MR brain w and wo contrast Nunu Cortez MD [address] [place] [phone] Referral ID Status Reason Start Date Expiration Date Visits Re quested Visits Authorized [id number] Closed 11/26/2022 05/25/2023 1 1 Specialty Diagnoses / Procedures Referred By Contac t Referred To Contact Radiology Diagnoses Postprandial RUQ pain Procedures NM hepatobiliary scan with pharm agent w/cck TylerMario suero APRN - AIR AND WATER FILLER [address] [facility] [address] [place] [address] Referral ID Status Reason Start Date Expiration Date V isits Requested Visits Authorized [id number] Pending Review 05/26/2023 05/25/2024 3 3 Specialty Diagnoses / Procedures Referred By Contac t Referred To Contact Radiology Diagnoses Nausea and vomiting, unspecified vomiting type Procedures NM gastric emptying solid Mario Fernando OUTLET MANAGER - AIR AND WATER FILLER [address] [facility] [address] [place] [id number] Referral ID Status Reason Start Date Expiration Date V isits Requested Visits Authorized [id number] Pending Review 05/26/2023 05/25/2024 3 3 Referral ID Status Reason Start Date Expiration Date V isits Requested Visits Authorized [id number] Authorized 05/26/2023 05/25/2024 3 3 Referral ID Status Reason Start Date Expiration Date V isits Requested Visits Authorized [id number] Authorized 05/26/2023 05/25/2024 3 3 Specialty Diagnoses / Procedures Referred By Contac t Referred To Contact Radiology Diagnoses Postprandial epigastric pain Elevated lipase Pancreatic lesion Procedures MR abdomen w and wo contrast Son Rosario MD [address] [facility] [address] [place] [address] Referral ID Status Reason Start Date Expiration Date V isits Requested Visits Authorized [id number] Authorized 07/07/2023 07/06/2024 1 1 Specialty Diagnoses / Procedures Referred By Contac t Referred To Contact Cardiology Diagnoses Postprandial epigastric pain Procedures Vascular US mesenteric artery duplex complete Rebecca Lorenzo PA-C [address] [facility] [address] [place] [address] Referral ID Status Reason Start Date Expiration Date Visits Re quested Visits Authorized [id number] Closed 07/05/2023 07/04/2024 1 1 Referral ID Status Reason Start Date Expiration Date Visits Re quested Visits Authorized [id number] Closed 07/07/2023 07/06/2024 1 1 Medications Administered [...] section and content) DATE CREATED AUTHOR 10/13/2017 [facility] DATE CREATED AUTHOR AUTHOR'S ORGANIZ ATION 05/06/2018 [facility] DATE CREATED AUTHOR AUTHOR'S ORGANIZ ATION 09/25/2020 [facility] DATE CREATED AUTHOR AUTHOR'S ORGANIZ ATION 01/30/2023 [facility] DATE CREATED AUTHOR AUTHOR'S ORGANIZ ATION 06/06/2024 [facility] DATE CREATED AUTHOR AUTHOR'S ORGANIZ ATION 06/28/2024 [facility] DATE CREATED AUTHOR AUTHOR'S ORGANIZ ATION 09/22/2024 [facility] DATE CREATED AUTHOR AUTHOR'S ORGANIZ ATION 10/05/2024 [facility] DATE CREATED AUTHOR AUTHOR'S ORGANIZ ATION 10/21/2024 [facility] Source Comments (unrecognize d section and content) In the event this informatio n is protected by the Federal Confidentiality of Alcohol and Drug Abuse Patient Records regulations: The Federal rules restrict any use of the information to criminally investigate or prosecute any alcohol or drug abuse patient.[facility] HospitalIn the event this information is protected by the Federal Confidentiality of Alcohol and Drug Abuse Patient Records regulations: The Federal rules restrict any use of the information to criminally investigate or prosecute any alcohol or drug abuse patient.[facility] HospitalIn the event this information is protected by the Federal Confidentiality of Alcohol and Drug Abuse Patient Records regulations: The Federal rules restrict any use of the information to criminally investigate or prosecute any alcohol or drug abuse patient.[facility] HospitalIn the event this information is protected by the Federal Confidentiality of Alcohol and Drug Abuse Patient Records regulations: The Federal rules restrict any use of the information to criminally investigate or prosecute any alcohol or drug abuse patient.[facility] HospitalIn the event this information is protected by the Federal Confidentiality of Alcohol and Drug Abuse Patient Records regulations: The Federal rules restrict any use of the information to criminally investigate or prosecute any alcohol or drug abuse patient.[facility] HospitalIn the event this information is protected by the Federal Confidentiality of Alcohol and Drug Abuse Patient Records regulations: The Federal rules restrict any use of the information to criminally investigate or prosecute any alcohol or drug abuse patient.[facility] HospitalIn the event this information is protected by the Federal Confidentiality of Alcohol and Drug Abuse Patient Records regulations: The Federal rules restrict any use of the information to criminally investigate or prosecute any alcohol or drug abuse patient.[facility] HospitalIn the event this information is protected by the Federal Confidentiality of Alcohol and Drug Abuse Patient Records regulations: The Federal rules restrict any use of the information to criminally investigate or prosecute any alcohol or drug abuse patient.[facility] HospitalIn the event this information is protected by the Federal Confidentiality of Alcohol and Drug Abuse Patient Records regulations: The Federal rules restrict any use of the information to criminally investigate or prosecute any alcohol or drug abuse patient.[facility] HospitalIn the event this information is protected by the Federal Confidentiality of Alcohol and Drug Abuse Patient Records regulations: The Federal rules restrict any use of the information to criminally investigate or prosecute any alcohol or drug abuse patient.[facility] HospitalIn the event this information is protected by the Federal Confidentiality of Alcohol and Drug Abuse Patient Records regulations: The Federal rules restrict any use of the information to criminally investigate or prosecute any alcohol or drug abuse patient.[facility] HospitalIn the event this information is protected by the Federal Confidentiality of Alcohol and Drug Abuse Patient Records regulations: The Federal rules restrict any use of the information to criminally investigate or prosecute any alcohol or drug abuse patient.[facility] HospitalIn the event this information is protected by the Federal Confidentiality of Alcohol and Drug Abuse Patient Records regulations: The Federal rules restrict any use of the information to criminally investigate or prosecute any alcohol or drug abuse patient.[facility] HospitalIn the event this information is protected by the Federal Confidentiality of Alcohol and Drug Abuse Patient Records regulations: The Federal rules restrict any use of the information to criminally investigate or prosecute any alcohol or drug abuse patient.[facility] HospitalIn the event this information is protected by the Federal Confidentiality of Alcohol and Drug Abuse Patient Records regulations: The Federal rules restrict any use of the information to criminally investigate or prosecute any alcohol or drug abuse patient.[facility] HospitalIn the event this information is protected by the Federal Confidentiality of Alcohol and Drug Abuse Patient Records regulations: The Federal rules restrict any use of the information to criminally investigate or prosecute any alcohol or drug abuse patient.[facility] HospitalIn the event this information is protected by the Federal Confidentiality of Alcohol and Drug Abuse Patient Records regulations: The Federal rules restrict any use of the information to criminally investigate or prosecute any alcohol or drug abuse patient.[facility] HospitalIn the event this information is protected by the Federal Confidentiality of Alcohol and Drug Abuse Patient Records regulations: The Federal rules restrict any use of the information to criminally investigate or prosecute any alcohol or drug abuse patient.[facility] HospitalIn the event this information is protected by the Federal Confidentiality of Alcohol and Drug Abuse Patient Records regulations: The Federal rules restrict any use of the information to criminally investigate or prosecute any alcohol or drug abuse patient.[facility] HospitalIn the event this information is protected by the Federal Confidentiality of Alcohol and Drug Abuse Patient Records regulations: The Federal rules restrict any use of the information to criminally investigate or prosecute any alcohol or drug abuse patient.City HospitalIn the event this information is protected by the Federal Confidentiality of Alcohol and Drug Abuse Patient Records regulations: The Federal rules restrict any use of the information to criminally investigate or prosecute any alcohol or drug abuse patient.City HospitalIn the event this information is protected by the Federal Confidentiality of Alcohol and Drug Abuse Patient Records regulations: The Federal rules restrict any use of the information to criminally investigate or prosecute any alcohol or drug abuse patient.City HospitalIn the event this information is protected by the Federal Confidentiality of Alcohol and Drug Abuse Patient Records regulations: The Federal rules restrict any use of the information to criminally investigate or prosecute any alcohol or drug abuse patient.City HospitalIn the event this information is protected by the Federal Confidentiality of Alcohol and Drug Abuse Patient Records regulations: The Federal rules restrict any use of the information to criminally investigate or prosecute any alcohol or drug abuse patient.City HospitalIn the event this information is protected by the Federal Confidentiality of Alcohol and Drug Abuse Patient Records regulations: The Federal rules restrict any use of the information to criminally investigate or prosecute any alcohol or drug abuse patient.[facility] HospitalIn the event this information is protected by the Federal Confidentiality of Alcohol and Drug Abuse Patient Records regulations: The Federal rules restrict any use of the information to criminally investigate or prosecute any alcohol or drug abuse patient.City HospitalIn the event this information is protected by the Federal Confidentiality of Alcohol and Drug Abuse Patient Records regulations: The Federal rules restrict any use of the information to criminally investigate or prosecute any alcohol or drug abuse patient.City HospitalIn the event this information is protected by the Federal Confidentiality of Alcohol and Drug Abuse Patient Records regulations: The Federal rules restrict any use of the information to criminally investigate or prosecute any alcohol or drug abuse patient.[facility] HospitalIn the event this information is protected by the Federal Confidentiality of Alcohol and Drug Abuse Patient Records regulations: The Federal rules restrict any use of the information to criminally investigate or prosecute any alcohol or drug abuse patient.City HospitalIn the event this information is protected by the Federal Confidentiality of Alcohol and Drug Abuse Patient Records regulations: The Federal rules restrict any use of the information to criminally investigate or prosecute any alcohol or drug abuse patient.City HospitalIn the event this information is protected by the Federal Confidentiality of Alcohol and Drug Abuse Patient Records regulations: The Federal rules restrict any use of the information to criminally investigate or prosecute any alcohol or drug abuse patient.City HospitalIn the event this information is protected by the Federal Confidentiality of Alcohol and Drug Abuse Patient Records regulations: The Federal rules restrict any use of the information to criminally investigate or prosecute any alcohol or drug abuse patient.[facility] Reason for Visit (unrecogniz ed section and content) Reason Onset Date Comments Trauma 01/15/2020 Reason Comments Abdominal Pain Everything she eats causes pain, diarrhea or vomiting. Has been talking to primary care about this possible crohns. Reason Comments Refill Request Reason Comments Orders Reason Comments Appointment Rescheduled Spoke with Dr. Home pate's office at [facility] regarding scheduling patient for EGD & colon [...] HIGH MDM 60-74 MINUTES Danyell Elizabeth PA-C [address] [place] [address] Referral ID Status Reason Start Date Expiration Date Visits Requested Visits Authorized [id number] Pending Review PCP Requested Referral 08/05/2022 08/05/2023 1 1 Reason Comments Infusion Specialty Diagnoses / Procedures Referred By Contac t Referred To Contact HEMONC INFUSION Diagnoses DDAVP Procedures 1STTREATMENT 1.5 HOURS Bakari Silva MD [address] [facility] [address] [place] [address] Kemal Treat Heber Pob [address] [place] [address] Referral ID Status Reason Start Date Expiration Date Visits Requested Visits Authorized [id number] Pending Review Patient Cleared - Admin/Chair man/Directo r advise to proceed 09/23/2022 12/21/2022 1 1 Specialty Diagnoses / Procedures Referred By Contac t Referred To Contact Radiology Diagnoses Anesthesia of skin Paresthesia of skin Procedures MR brain w and wo contrast Nunu Cortez MD [address] [place] [address] Referral ID Status Reason Start Date Expiration Date Visits Re quested Visits Authorized [id number] Closed 11/26/2022 05/25/2023 1 1 Reason Onset Date Comments Records 01/25/2023 Reason Onset Date Comments covid positive 02/13/2023 Reason Comments Radiology US Specialty Diagnoses / Procedures Referred By Contac t Referred To Contact US IMAGING Diagnoses Bilious vomiting with nausea Generalized abdominal pain Diarrhea, unspecified type Procedures US ABD RT UPPER QUADRANT US ABDOMINAL REAL TIME W/IMAGE LIMITED Danyell Gann PA-C [address] [facility] [address] [place] [address] Referral ID Status Reason Start Date Expiration Date V isits Requested Visits Authorized [id number] Closed Auto-Generate d Referral 06/02/2022 07/02/2023 1 1 Reason Onset Date Comments Medication Problem 03/13/2023 Reason Onset Date Comments New Patient 04/22/2023 New Pt appt sche duled for 05/26 at [facility] with Mignon Fernando. Reason Comments New Patient Abdominal Pain Irritable Bowel Syndrome States she has a current diagnosis Specialty Diagnoses / Procedures Referred By Contac t Referred To Contact Gastroenterology Diagnoses Unspecified abdominal pain Procedures GASTROINTESTINAL (GI) SERVICES-GENERAL Nunu Cortez MD [address] [place] [address] [facility] [address] [place] [phone] Referral ID Status Reason Start Date Expiration Date Visits Re quested Visits Authorized [id number] Closed 04/12/2023 04/12/2024 1 1 Reason Onset Date Comments Release of Information 06/01/2023 Specialty Diagnoses / Procedures Referred By Contac t Referred To Contact Radiology Diagnoses Nausea and vomiting, unspecified vomiting type Procedures NM gastric emptying solid Mario Fernando, OUTLET MANAGER - AIR AND WATER FILLER [address] [place] [address] Referral ID Status Reason Start Date Expiration Date V isits Requested Visits Authorized [id number] Authorized 05/26/2023 05/25/2024 3 3 Specialty Diagnoses / Procedures Referred By Contac t Referred To Contact Radiology Diagnoses Postprandial RUQ pain Procedures NM hepatobiliary scan with pharm agent w/cck Mario Fernando, OUTLET MANAGER - AIR AND WATER FILLER [address] [place] [address] Referral ID Status Reason Start Date Expiration Date V isits Requested Visits Authorized [id number] Authorized 05/26/2023 05/25/2024 3 3 Reason Comments Abdominal Pain Reason Comments 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 [place] [address] Melvin Posey MD [address] [facility] [address] [place] [address] Referral ID Status Reason Start Date Expiration Date V isits Requested Visits Authorized [id number] Closed Specialty Services Required 06/24/2023 06/23/2024 1 1 Reason Comments abdominal mass Abdominal mass Specialty Diagnoses / Procedures Referred By Contac t Referred To Contact General Surgery Diagnoses Postprandial epigastric pain Elevated lipase Pancreatic lesion Procedures [place] OFFICE/OUTPATIENT NEW HIGH MDM 60 MINUTES Rebecca Lorenzo PA-C [address] [facility] [address] [place] [address] Son Rosario MD [address] [facility] [address] [place] [address] Referral ID Status Reason Start Date Expiration Date Visits Requested Visits Authorized [id number] Pending Review Specialty Services Required 07/05/2023 07/04/2024 1 1 Reason Onset Date Comments Appointment Request 06/24/2023 06/24/23 refe rral for Dx: Postprandial RUQ pain Specialty Diagnoses / Procedures Referred By Contac t Referred To Contact Cardiology Diagnoses Postprandial epigastric pain Procedures Vascular US mesenteric artery duplex complete Rebecca Lorenzo PA-C [address] [facility] [address] [place] [address] Referral ID Status Reason Start Date Expiration Date Visits Re quested Visits Authorized [id number] Closed 07/05/2023 07/04/2024 1 1 Specialty Diagnoses / Procedures Referred By Contac t Referred To Contact Radiology Diagnoses Postprandial epigastric pain Elevated lipase Pancreatic lesion Procedures MR abdomen w and wo contrast Son Rosario MD [address] [place] [address] Referral ID Status Reason Start Date Expiration Date Visits Re quested Visits Authorized [id number] Closed 07/07/2023 07/06/2024 1 1 Reason Comments Established Patient Reason Comments Question Reason Onset Date Comments Results 08/03/2023 MRI Reason Onset Date Comments Appointment 08/10/2023 Reason Comments VWD Specialty Diagnoses / Procedures Referred By Contac t Referred To Contact Diagnoses Epigastric pain EPIGASTRIC PAIN Procedures [place] LAPAROSCOPY SURG CHOLECYSTECTOMY LAPAROSCOPIC CHOLECYSTECTOMY POSSIBLE OPEN Melvin Posey MD [address] [place] [address] [address] [facility] [place] [address] Referral ID Status Reason Start Date Expiration Date Visits Re quested Visits Authorized [id number] 1 1 Reason Comments Post-op ALS PO LAP HUYEN 08/24 Reason Onset Date Comments Appointment 12/17/2023 Reason Comments New Patient Von Willebrand Disea se Reason Onset Date Comments OTHER 06/29/2022 Reason Comments Abdominal Pain Diarrhea Reason Onset Date Comments Flank Pain 06/05/2024 Reason Comments Appointment Telephone Encounter - Dacia Yarbrough (Operator And Truck Driver Trev)TREV - 01/15/2020 4:49 PM EDT Miscellaneous [...] right away to see us Dacia Yarbrough APRN.AIR AND WATER FILLER Electronically signed by Dacia Lion (Operator And Truck Driver Supervisor [employer]) TREV Yarbrough at 01/15/2020 4:50 PM EDTdocumented in this encounter Care Teams (unrecognized sec tion and content) Clerical Manager Relationship Specialty Start Date End Date Nunu Cortez MD [address] [place] [address] [id number] PCP - General Family Medicine 04/29/22 Gordon Nur Sr. [address] [place] [address] 02/23/17 Clerical Manager Relationship Specialty Start Date End Date Nunu Cortez MD [address] [place] [address], [place] [address] PCP - General Family Medicine 04/29/22 Gordon Nur Sr. [address] [place] [address] 02/23/17 Clerical Manager Relationship Specialty Start Date End Date Nunu Cortez MD [address] [place] [address] PCP - General Family Medicine 04/29/22 Gordon Nur Sr. [address] [place] [phone] 02/23/17 Clerical Manager Relationship Specialty Start Date End Date Nunu Cortez MD [address] [place] [address] PCP - General Family Medicine 04/29/22 Gordon Nur Sr. [address] [place] [address] 02/23/17 Clerical Manager Relationship Specialty Start Date End Date Nunu Cortez MD [address] [place] [address] PCP - General Family Medicine 04/29/22 Gordon Nur Sr. [address] [place] [phone] 02/23/17 Clerical Manager Relationship Specialty Start Date End Date Nunu Cortez MD [address] [place] [address] PCP - General Family Medicine 04/29/22 Gordon Nur Sr. [address] [place] [phone] 02/23/17 Clerical Manager Relationship Specialty Start Date End Date Nunu Cortez MD [address] [place] [address] PCP - General Family Medicine 06/23/22 Jeff Purvis MD [address] [address] Consulting Physician Hematology and Oncology 06/23/22 Clerical Manager Relationship Specialty Start Date End Date Nunu Cortez MD [address] [place] [address] PCP - General Family Medicine 04/29/22 Gordon Nur Sr. [address] [place] [phone] 02/23/17 Clerical Manager Relationship Specialty Start Date End Date Nunu Cortez MD [address] [place] [address] PCP - General Family Medicine 04/29/22 Gordon Nur Sr. [address] [place] [phone] 02/23/17 Clerical Manager Relationship Specialty Start Date End Date Nunu Cortez MD [address] [place] [address] PCP - General Family Medicine 04/29/22 Gordon Nur Sr. [address] [place] [phone] 02/23/17 Clerical Manager Relationship Specialty Start Date End Date Nunu Cortez MD [address] [place] [address] PCP - General Family Medicine 04/29/22 Gordon Nur Sr. [address] [place] [address] 02/23/17 Clerical Manager Relationship Specialty Start Date End Date Nunu Cortez MD [address] [place] [address] PCP - General Family Medicine 04/29/22 Gordon Nur Sr. [address] [place] [address] 02/23/17 Clerical Manager Relationship Specialty Start Date End Date Nunu Cortez MD [address] [place] [address] PCP - General Family Medicine 04/29/22 Gordon Nur Sr. [address] [place] [address], [place] [address] 02/23/17 Clerical Manager Relationship Specialty Start Date End Date Nunu Cortez MD [address] [place] [address] PCP - General Family Medicine 04/29/22 Gordon Nur Sr. [address] [place] [address] 02/23/17 Clerical Manager Relationship Specialty Start Date End Date Nunu Cortez MD [address] [place] [address] PCP - General Family Medicine 04/29/22 Gordon Nur Sr. [address] [place] [address] 02/23/17 Clerical Manager Relationship Specialty Start Date End Date Nunu Cortez MD [address] [place] [address] PCP - General Family Medicine 06/23/22 Jeff Purvis MD [address] [address] Consulting Physician Hematology and Oncology 06/23/22 Clerical Manager Relationship Specialty Start Date End Date Nunu Cortez MD [address] [place] [address] PCP - General Family Medicine 06/23/22 Jeff Purvis MD [address] [address] Consulting Physician Hematology and Oncology 06/23/22 Clerical Manager Relationship Specialty Start Date End Date Nunu Cortez MD [address] [place] [address] PCP - General Family Medicine 04/29/22 Gordon Nur Sr. [address] [place] [address] 02/23/17 Clerical Manager Relationship Specialty Start Date End Date Nunu Cortez MD [address] [place] [address] PCP - General Family Medicine 06/23/22 Jeff Purvis MD 161 N [facility] [address] [place] [address] Consulting Physician Hematology and Oncology 06/23/22 Clerical Manager Relationship Specialty Start Date End Date Nunu Cortez MD [address] [place] [address] PCP - General Family Medicine 04/29/22 Gordon Nur Sr. [address] [place] [phone] 02/23/17 Clerical Manager Relationship Specialty Start Date End Date Nunu Cortez MD [address] [place] [address] PCP - General Family Medicine 04/29/22 Gordon Nur Sr. [address] [place] [address] 02/23/17 Clerical Manager Relationship Specialty Start Date End Date Nunu Cortez MD [address] [place] [address] PCP - General Family Medicine 06/23/22 Jeff Purvis MD [address] [address] Consulting Physician Hematology and Oncology 06/23/22 Clerical Manager Relationship Specialty Start Date End Date Nunu Cortez MD [address] [place] [address] PCP - General Family Medicine 06/23/22 Jeff Purvis MD [address] [place] [address] [place] [address] Consulting Physician Hematology and Oncology 06/23/22 Clerical Manager Relationship Specialty Start Date End Date Nunu Cortez MD [address] [place], [place] [address] PCP - General Family Medicine 06/23/22 Jeff Purvis MD [address] [facility] [address] [place] [address] Consulting Physician Hematology and Oncology 06/23/22 Clerical Manager Relationship Specialty Start Date End Date Nunu Cortez MD [address] [place] [address] PCP - General Family Medicine 06/23/22 Jeff Purvis MD [address] [facility] [address] [place] [address] Consulting Physician Hematology and Oncology 06/23/22 Clerical Manager Relationship Specialty Start Date End Date Nunu Cortez MD [address] [place] [address] PCP - General Family Medicine 06/23/22 Jeff Purvis MD [address] [facility] [address] [place] [address] Consulting Physician Hematology and Oncology 06/23/22 Team [...] Dr. Branden Huang MD Emergency Provider Active Clerical Manager Relationship Specialty Start Date End Date Nunu Cortez MD [address] [place] [address] PCP - General Family Medicine 04/29/22 Gordon Nur Sr. [address] [facility] [place] [place] [address] 02/23/17 Clerical Manager Relationship Specialty Start Date End Date Nunu Cortez MD [address] [place], [place] [address] PCP - General Family Medicine 06/23/22 Jeff Purvis MD [address] [address] Consulting Physician Hematology and Oncology 06/23/22 Clerical Manager Relationship Specialty Start Date End Date Nunu Cortez MD [address] [place] [address] PCP - General Family Medicine 06/23/22 Bakari Silva MD [address] [address] Hematology and Oncology 07/05/23 Clerical Manager Relationship Specialty Start Date End Date Nunu Cortez MD [address] [place] [address] PCP - General Family Medicine 06/23/22 Bakari Silva MD [address] [place] [address] Hematology and Oncology 07/05/23 Clerical Manager Relationship Specialty Start Date End Date Nunu Cortez MD [address] [place] [address] PCP - General Family Medicine 06/23/22 Bakari Silva MD [address] [place] [address] Hematology and Oncology 07/05/23 Clerical Manager Relationship Specialty Start Date End Date Nunu Cortez MD [address] [place] [address] PCP - General Family Medicine 06/23/22 Jeff Purvis MD [address] [address] Consulting Physician Hematology and Oncology 06/23/22 07/04/23 Bakari Silva MD [address] [place] [address] Hematology and Oncology 07/05/23 Clerical Manager Relationship Specialty Start Date End Date Nunu Cortez MD [address] [place] [address] PCP - General Family Medicine 06/23/22 Bakari Silva MD [address] [place] [address] Hematology and Oncology 07/05/23 Clerical Manager Relationship Specialty Start Date End Date Nunu Cortez MD [address] [place] [address] PCP - General Family Medicine 04/29/22 Gordon Nur Sr. [address] [place] [address] [address] 02/23/17 Clerical Manager Relationship Specialty Start Date End Date Nunu Cortez MD [address] [facility] [place] [address] PCP - General Family Medicine 06/23/22 Bakari Silva MD [address] [place] [address] Hematology and Oncology 07/05/23 Clerical Manager Relationship Specialty Start Date End Date Nunu Cortez MD [address] [facility] [place] [address] PCP - General Family Medicine 06/23/22 Bakari Silva MD [address] [place] [address] Hematology and Oncology 07/05/23 Clerical Manager Relationship Specialty Start Date End Date Nunu Cortez MD [address] [place] [address] PCP - General Family Medicine 04/29/22 Gordon Nur Sr. [address] [place] [address] 02/23/17 Bakari Silva MD [address] [place] [address] [place] [address] Hematology/Oncology 08/02/23 Melvin Posey [address] [place] [address] [place] [address] General Surgery 08/02/23 Clerical Manager Relationship Specialty Start Date End Date Nunu Cortez MD [address] [place] [address] PCP - General Family Medicine 04/29/22 Gordon Nur Sr. [address] [place] [address] 02/23/17 Bakari Silva MD [address] [place] [address] [place] [address] Hematology/Oncology 08/02/23 Melvin Posey [address] [place] [address] [place] [address] General Surgery 08/02/23 Clerical Manager Relationship Specialty Start Date End Date Nunu Cortez MD [address] [place] [address] PCP - General Family Medicine 06/23/22 Bakari Silva MD [address] [place] [address] Hematology and Oncology 07/05/23 Clerical Manager Relationship Specialty Start Date End Date Nunu Cortez MD [address] [place] [address] PCP - General Family Medicine 06/23/22 Bakari Silva MD [address] [place] [address] Hematology and Oncology 07/05/23 Clerical Manager Relationship Specialty Start Date End Date Nunu Cortez MD [address] [place] [address] PCP - General Family Medicine 06/23/22 Bakari Silva MD 1 [place] [address] Hematology and Oncology 07/05/23 Clerical Manager Relationship Specialty Start Date End Date Nunu Cortez MD [address] [place] [address] PCP - General Family Medicine 06/23/22 Bakari Silva MD 1 [place] [address] Hematology and Oncology 07/05/23 Clerical Manager Relationship Specialty Start Date End Date Nunu Cortez MD [address] [place] [address] PCP - General Family Medicine 04/29/22 Gordon Nur Sr. [address] [facility] [place] [address] 02/23/17 Bakari Silva MD [address] [facility] [place] [address] [place] [address] Hematology/Oncology 08/02/23 Melvin Posey [address] [place] [address] [place] [address] General Surgery 08/02/23 Clerical Manager Relationship Specialty Start Date End Date Nunu Cortez MD [address] [place] [address] PCP - General Family Medicine 06/23/22 Bakari Silva MD [address] [place] [address] Hematology and Oncology 07/05/23 Clerical Manager Relationship Specialty Start Date End Date Nunu Cortez MD [address] [place] [address] PCP - General Family Medicine 04/29/22 Gordon Nur Sr. [address] [facility] [place] [place] [address] 02/23/17 Bakari Silva MD [address] [place] [address] [place] [address] Hematology/Oncology 08/02/23 Melvin Posey [address] [place] [address] [place] [address] General Surgery 08/02/23 Clerical Manager Relationship Specialty Start Date End Date Nunu Cortez MD [address] [place] [address] PCP - General Family Medicine 04/29/22 Gordon Nur Sr. [address] [place] [address] 02/23/17 Bakari Silva MD [address] [place] [address] [place] [address] Hematology/Oncology 08/02/23 Melvin Posey [address] [place] [address] [place] [address] General Surgery 08/02/23 Clerical Manager Relationship Specialty Start Date End Date Nunu Cortez MD [address] [place], [place] [address] PCP - General Family Medicine 06/23/22 Bakari Silva MD 1 [place], [place] [phone] Hematology and Oncology 07/05/23 Clerical Manager Relationship Specialty Start Date End Date Nunu Cortez MD [address] [place], [place] [address] PCP - General Family Medicine 06/23/22 Bakari Silva MD 1 [place] [address] Hematology and Oncology 07/05/23 Clerical Manager Relationship Specialty Start Date End Date Nunu Cortez MD [address] [place] [address] PCP - General Family Medicine 06/23/22 Bakari Silva MD 1 [place] [address] Hematology and Oncology 07/05/23 Clerical Manager Relationship Specialty Start Date End Date Nunu Cortez MD [address] [place] [address] PCP - General Family Medicine 06/23/22 Jeff Purvis MD [address] [address] Consulting Physician Hematology and Oncology 06/23/22 Clerical Manager Relationship Specialty Start Date End Date Nunu Cortez MD [address] [place] [address] PCP - General Family Medicine 06/23/22 Jeff Purvis MD 161 N [facility] [address] [place] [address] Consulting Physician Hematology and Oncology 06/23/22 Clerical Manager Relationship Specialty Start Date End Date Nunu Cortez MD [address] [place] [address] PCP - General Family Medicine 06/23/22 Jeff Purvis MD [address] [facility] [address] [place] [address] Consulting Physician Hematology and Oncology 06/23/22 Clerical Manager Relationship Specialty Start Date End Date Nunu Cortez MD [address] [place] [address] PCP - General Family Medicine 06/23/22 Jeff Purvis MD [address] N [facility] [address] [place] [address] Consulting Physician Hematology and Oncology 06/23/22 Clerical Manager Relationship Specialty Start Date End Date Nunu Cortez MD [address] [place] [address] PCP - General Family Medicine 04/29/22 Gordon Nur Sr. [address] [facility] [address] [place] [address] 02/23/17 Bakari Silva MD [address] [place] [address] [place] [address] Hematology/Oncology 08/02/23 Melvin Posey [address] [place] [address] [place] [address] General Surgery 08/02/23 Clerical Manager Relationship Specialty Start Date End Date Nunu Cortez MD [address] [place] [address] PCP - General Family Medicine 04/29/22 Gordon Nur Sr. [address] [facility] [place] [place] [address] 02/23/17 Bakari Silva MD [address] [place] [address] [place] [address] Hematology/Oncology 08/02/23 Melvin Posey [address] [place] [address] [place] [address] General Surgery 08/02/23 Clerical Manager Relationship Specialty Start Date End Date Nunu Cortez MD [address] [place] [address] PCP - General Family Medicine 04/29/22 Gordon Nur Sr. [address] [place] [facility] [address] 02/23/17 Bakari Silva MD [address] [place] [address] [place] [address] Hematology/Oncology 08/02/23 Melvin Posey [address] [place] [address] [place] [address] General Surgery 08/02/23 Team Status: Inactive Member [...] August 31, 2024 End: August 31, 2024 Clerical Manager Relationship Specialty Start Date End Date Nunu Cortez MD [address] [place] [address] PCP - General Family Medicine 04/29/22 Gordon Nur Sr. [address] [place] [address] 02/23/17 Bakari Silva MD 224 [facility] [place] [address] [place] [address] Hematology/Oncology 08/02/23 Melvin Posey 95 [facility] [place] [address] [place] [phone] General Surgery 08/02/23 Clerical Manager Relationship Specialty Start Date End Date Nunu Cortez MD [address] [place] [address] PCP - General Family Medicine 04/29/22 Gordon Nur Sr[address] [place] [address] 02/23/17 Bakari Silva MD [address] [place] [address] [place] [address] Hematology/Oncology 08/02/23 Melvin Posey [address] [place] [address] [place] [address] General Surgery 08/02/23 Goals (unrecognized [...] 2,000 mg, IntraVENous, Administer over 30 Minutes, Nylon Winder to O.R., On Wed09/03/23 at 0945, For [...] sedation for opioid reversal - MUST notify manager digital ad operations provider immediately after first dose, may give [...] RN) 0055 (See Alternative - Provider: Quang Cheng RN) ondansetron (Zofran) injection 4 mg (COMPLETED) [...] BE BASED ON THE PRIMARY CLINICAL RECORDS. [employer] provides no warranty or guarantee of the accuracy or completeness of information in this document.
[2024-10-23] MEDS: Desmopressin Acetate 40 MCG/10 ML Vial 20 MCG IV (07:00)
[2024-10-23 07:20] LABS: Internal QC Validated? YES +Cl - CLEAR BKGD; Pregnancy, Urine Negative Negative
[2024-10-23] MEDS: 0.9% Normal Saline (1000mL) 1,000 ML 15 ML IV (07:43)
[2024-10-23] MEDS: TRANEXAMIC ACID 2,000 MG in 0.9% Normal Saline (100mL Bag) 100 ML 280 MG IV (07:43)
--- NOTE | 2024-10-23 08:10 | SUR.PREOP ---
CALLS FOR NURSING, NAUSEA & VOMITING AFTER TXA INFUSION RUNNING, ORDER FOR ZOFRAN 4 MG IV OBTAINED FROM DR VIRGEN, GIVEN.
--- NOTE | 2024-10-23 08:10 | SUR.PREOP ---
CALLS FOR NURSING, NAUSEA & VOMITING AFTER TXA INFUSION RUNNING, ORDER FOR ZOFRAN 4 MG IV OBTAINED FROM DR VIRGEN, GIVEN.
--- NOTE | 2024-10-23 08:13 | HP.PCM_ITS ---
[facility] - General General Date of Admission: 10/23/24 Date of Service: 10/23/24 Chief Complaint: 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 and rectal bleeding with abnormal CT scan. [facility] Narrative MELINDA RAYMOND, is a 29 F who presents for the evaluation of abdominal pain and lower GI bleeding along with abnormal CT scan. 29-year-old female presents for initial consultation after being seen in the emergency department on 08/31/2024 with complaints of abdominal pain and rectal bleeding. PMH is significant for IBS and von Willebrand's disease type I. She did speak with her cotton gin yard supervisor who told her to take DDAVP which she did and the bleeding seemed to slow down a bit. Labs reveal normal WBC, hemoglobin of 15.7, normal transaminases and lipase 253. CT scan with IV contrast revealed descending and rectosigmoid wall thickening with mild submucosal hyperemia and surrounding mesenteric soft tissue stranding. Findings concerning for infectious colitis. No stool studies were performed. She was prescribed Augmentin twice daily for 10 days and Xanax 0.5 mg twice daily as needed anxiety. ED workup included: Labs: WBC normal, hemoglobin 15.7, normal transaminases, lipase elevated 253 CT abdomen and pelvis with IV contrast revealed wall thickening of the descending and rectosigmoid colon, mild to moderate submucosal hyperemia, and mesenteric soft tissue stranding, concerning for infectious colitis No stool studies performed Treatment initiated: Augmentin twice daily x 10 days Xanax 0.5 mg twice daily as needed for anxiety HISTORICAL IMAGING: CT 05/31/2024 Mild distended fluid-filled small bowel loops in left upper quadrant. Fluid and fecal material seen in the right hemicolon. CT 03/14/2023 1. Nonspecific fluid-filled small bowel loops without evidence of bowel obstruction. Enteritis is possible. CT 07/02/2023 1.2 cm ovoid hypodense nodule inferior to the mid pancreatic body - she is in [employer] - Wednesday when at school she had BRB - left school and called cotton gin yard supervisor took DDAVP - reports her stomach has been hurting bad worse than normal - seen in ED on 08/31 - reports she was laying on the bathroom floor due to pain - has chronic pain, comes in waves of intensity, can double her over - prior to onset of bleeding she did not have any onset of severe pain, cramping - reports she typically has soft/loose stools, several times a day - diarrhea is no worse post CCX - pain never resolved with CCX - hyoscyamine PRN - does not slow down stools, slightly decreases abdominal pain to a more tolerable level - Xanax is the only thing that completely knocks it out - promethazine infrequent use - ondansetron couple times a day - denies any fevers - reports - she reports she saw GI prior to CCX - [facility] - X - [facility] - Dr. Garibay - reports a history of abdominal pain/diarrhea for the past 3-4 years - prior to CCX she reports she was very thin, vomiting frequently - reports HIDA revealed 80% EF and underwent CCX for hyperkinetic GB - GES per patient was normal - EGD - per patient was normal - [facility] August 2022 - Colon - per patient was normal - [facility] August 2022 - denies any family h/o crohn's or colitis - Paternal GM with colon CA - she is not taking a probiotic - CT July 2023 revealed a 1.4cm cystic, presumed benign pancreatic lesion - per patient was advised to f/u in 1 year PFSH Medical History PTSD (post-traumatic stress disorder) Anxiety Marijuana use Anemia Dietary restriction History of GI bleed History of diverticulitis Gastric reflux Former smoker Tachycardia Vesico-ureteral reflux IBS (irritable bowel syndrome) Von Willebrand disease Gastroenteritis Home Medications ?Medication ?Instructions ?Recorded ?Last Taken ?Type ondansetron 8 mg disintegrating 8 mg PO Q12H PRN nause a and 03/14/23 10/22/24 History tablet vomiting escitalopram oxalate 20 mg tablet 20 mg PO QHS 5 10/22/24 History hyoscyamine sulfate 0.125 mg 0.125 - 0.25 mg sublingua l TID PRN 08/31/24 Unknown History sublingual tablet dyspepsia promethazine 12.5 mg tablet 12.5 mg PO TID PRN nausea and 08/31/24 Unknown History vomiting alprazolam 0.5 mg tablet (Xanax) 0.5 mg PO ONCE PRN an xiety 09/04/24 10/23/24 History aminocaproic acid 250 mg/mL (25 %) 5,000 mg PO Q6H PRN PRN FOR 10/20/24 Unknown History oral solution BLEEDING acetaminophen 325 mg tablet (Pain 650 mg PO Q4H PRN pa in 10/23/24 Unknown History Relief (acetaminophen)) Allergy/AdvReac Type Severity Reaction Status Date / Time hydrocodone (From Vicodin) Allergy Intermediate Hives Verified 10/23/24 07:23 dicyclomine Allergy Mild palpitation Verified 10/23/24 07:23 s aspirin AdvReac Severe Bleeding Verified 10/23/24 07:23 ibuprofen AdvReac Severe Bleeding Verified 10/23/24 07:23 naproxen AdvReac Severe Bleeding Verified 10/23/24 07:23 Surgical History History of esophagogastroduodenoscopy (EGD) Hx of nevus excision Hx laparoscopic cholecystectomy H/O adenoidectomy Hx of section Hx of tonsillectomy Social History Smoking Status: Former smoker ROS Constitutional Constitutional: Denies fatigue, fever(s), poor appetite, weight gain or weight loss Gastrointestinal Gastrointestinal: Denies belching, bloating, change in bowel habits, change in stool character, chewing difficulty, coffee ground emesis, constipation, cramping, diarrhea, dyspepsia, dysphagia, early satiety, excessive flatus, fecal incontinence, heartburn, hematemesis, hematochezia, hemorrhoids, loose stools, melena, nausea, odynophagia, rectal bleeding, tenesmus, vomiting or weight changes Vital Signs Vital Signs Vital Signs: 10/23/24 07:27 10/23/24 07:27 Temperature 99.7 F H Temperature Source Temporal Pulse Rate 91 Respiratory Rate 16 Respiratory Pattern Normal Blood Pressure 104/66 Blood Pressure Mean 78 Blood Pressure Source Monitor Blood Pressure Position Sitting Blood Pressure Location Right Arm Pulse Ox 97 Oxygen Delivery Method Room Air Weight Weight: 176 lb 5.917 oz Body Mass Index (BMI) 32.2 Physical Exam Const alert, oriented x3, no apparent distress and healthy appearing General Appearance: cooperative GI normal to inspection, nondistended, normoactive bowel sounds, soft to palpation, non-tender and non-distended Percussion: normal to percussion Rectal Exam: deferred Results Lab / Micro Data Labs: Laboratory Results - last 24 hr 10/23/24 07:05: Urine Test Negative Assessment & Plan Assessment/Plan (1) Rectal bleeding: (2) Elevated lipase: (3) Gastroenteritis: PLAN: Assessment and Plan Assessment and Plan (1) Pancreatic lesion: Status: Acute (2) Elevated lipase: Status: Acute Orders: Orders Abdomen without Contrast Today K86.9 - Disease of pancreas, unspecified Lipase Today K86.9 - Disease of pancreas, unspecified, R74.8 - Abnormal levels of other serum enzymes Plan 29-year-old female with a history of IBS and von Willebrand disease type I, presenting for evaluation following an ED visit for abdominal pain and rectal bleeding. Imaging revealed descending and rectosigmoid colitis with surrounding mesenteric stranding, most consistent with infectious colitis. Her hemoglobin is stable at 15.7, and there is no leukocytosis. The mild lipase elevation (253) is of unclear significance but may represent a reactive process. No stool studies were obtained during her ED visit. Given her underlying bleeding disorder, it is reassuring that symptoms improved with DDAVP, suggesting mucosal friability likely exacerbated by inflammation. At this time, infectious colitis remains the most likely diagnosis, though other causes such as IBD or ischemic colitis should be considered if symptoms persist or worsen. Given the clinical presentation and imaging findings concerning for infectious colitis, I will obtain stool studies including a GI PCR panel, C. Diff, O&P, and fecal calprotectin to help differentiate infectious from inflammatory etiologies. If symptoms do not improve or recur after completing her 10-day course of Augmentin, we will consider colonoscopy to evaluate for IBD, ischemic colitis, or other structural causes. She should continue DDAVP as directed by hematology if bleeding recurs, and we will coordinate with her cotton gin yard supervisor as needed for future management or procedures. Supportive care with hydration and dietary modifications is advised. A follow-up appointment should be scheduled in 2 weeks to assess clinical response and review results. CT scan completed June 2024 revealed a 1.2cm ovoid hypodense nodule inferior to the mid pancreatic body; while likely benign; given this incidental findings and an elevated Lipase (253), further charecterization with pancreatic protocol MRI is warranted to assess for underlying pancreatic pathology and to better define the nature of this lesion. Note: [employer] speech recognition dispatcher bus and trolley software was used to create portions of this document. Sound-alike and misspelled words, as well as other dispatcher bus and trolley errors may be contained in the documentation. Patient Instructions: Complete ATB Complete stool testing - stool kit provided at [facility] today (GI PCR, C. Diff, H. Pylori, Calprotectin, O&P) MRI pancreas to f/u incidental lesion noted on prior CT Patient to call [facility] film room to obtain copy of CT to hand carry to MRI appt for comparison Follow-up in 2 weeks Plan Details Forms: Work Excuse
--- NOTE | 2024-10-23 08:13 | HP.PCM_ITS ---
[facility] - General General Date of Admission: 10/23/24 Date of Service: 10/23/24 Chief Complaint: 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 and rectal bleeding with abnormal CT scan. [facility] Narrative MELINDA RAYMOND, is a 29 F who presents for the evaluation of abdominal pain and lower GI bleeding along with abnormal CT scan. 29-year-old female presents for initial consultation after being seen in the emergency department on 08/31/2024 with complaints of abdominal pain and rectal bleeding. PMH is significant for IBS and von Willebrand's disease type I. She did speak with her fiscal manager who told her to take DDAVP which she did and the bleeding seemed to slow down a bit. Labs reveal normal WBC, hemoglobin of 15.7, normal transaminases and lipase 253. CT scan with IV contrast revealed descending and rectosigmoid wall thickening with mild submucosal hyperemia and surrounding mesenteric soft tissue stranding. Findings concerning for infectious colitis. No stool studies were performed. She was prescribed Augmentin twice daily for 10 days and Xanax 0.5 mg twice daily as needed anxiety. ED workup included: Labs: WBC normal, hemoglobin 15.7, normal transaminases, lipase elevated 253 CT abdomen and pelvis with IV contrast revealed wall thickening of the descending and rectosigmoid colon, mild to moderate submucosal hyperemia, and mesenteric soft tissue stranding, concerning for infectious colitis No stool studies performed Treatment initiated: Augmentin twice daily x 10 days Xanax 0.5 mg twice daily as needed for anxiety HISTORICAL IMAGING: CT 05/31/2024 Mild distended fluid-filled small bowel loops in left upper quadrant. Fluid and fecal material seen in the right hemicolon. CT 03/14/2023 1. Nonspecific fluid-filled small bowel loops without evidence of bowel obstruction. Enteritis is possible. CT 07/02/2023 1.2 cm ovoid hypodense nodule inferior to the mid pancreatic body - she is in [employer] - Wednesday when at school she had BRB - left school and called fiscal manager took DDAVP - reports her stomach has been hurting bad worse than normal - seen in ED on 08/31 - reports she was laying on the bathroom floor due to pain - has chronic pain, comes in waves of intensity, can double her over - prior to onset of bleeding she did not have any onset of severe pain, cramping - reports she typically has soft/loose stools, several times a day - diarrhea is no worse post CCX - pain never resolved with CCX - hyoscyamine PRN - does not slow down stools, slightly decreases abdominal pain to a more tolerable level - Xanax is the only thing that completely knocks it out - promethazine infrequent use - ondansetron couple times a day - denies any fevers - reports - she reports she saw GI prior to CCX - [facility] - X - [facility] - Dr. Garibay - reports a history of abdominal pain/diarrhea for the past 3-4 years - prior to CCX she reports she was very thin, vomiting frequently - reports HIDA revealed 80% EF and underwent CCX for hyperkinetic GB - GES per patient was normal - EGD - per patient was normal - [facility] August 2022 - Colon - per patient was normal - [facility] August 2022 - denies any family h/o crohn's or colitis - Paternal GM with colon CA - she is not taking a probiotic - CT July 2023 revealed a 1.4cm cystic, presumed benign pancreatic lesion - per patient was advised to f/u in 1 year PFSH Medical History PTSD (post-traumatic stress disorder) Anxiety Marijuana use Anemia Dietary restriction History of GI bleed History of diverticulitis Gastric reflux Former smoker Tachycardia Vesico-ureteral reflux IBS (irritable bowel syndrome) Von Willebrand disease Gastroenteritis Home Medications ?Medication ?Instructions ?Recorded ?Last Taken ?Type ondansetron 8 mg disintegrating 8 mg PO Q12H PRN nause a and 03/14/23 10/22/24 History tablet vomiting escitalopram oxalate 20 mg tablet 20 mg PO QHS 5 10/22/24 History hyoscyamine sulfate 0.125 mg 0.125 - 0.25 mg sublingua l TID PRN 08/31/24 Unknown History sublingual tablet dyspepsia promethazine 12.5 mg tablet 12.5 mg PO TID PRN nausea and 08/31/24 Unknown History vomiting alprazolam 0.5 mg tablet (Xanax) 0.5 mg PO ONCE PRN an xiety 09/04/24 10/23/24 History aminocaproic acid 250 mg/mL (25 %) 5,000 mg PO Q6H PRN PRN FOR 10/20/24 Unknown History oral solution BLEEDING acetaminophen 325 mg tablet (Pain 650 mg PO Q4H PRN pa in 10/23/24 Unknown History Relief (acetaminophen)) Allergy/AdvReac Type Severity Reaction Status Date / Time hydrocodone (From Vicodin) Allergy Intermediate Hives Verified 10/23/24 07:23 dicyclomine Allergy Mild palpitation Verified 10/23/24 07:23 s aspirin AdvReac Severe Bleeding Verified 10/23/24 07:23 ibuprofen AdvReac Severe Bleeding Verified 10/23/24 07:23 naproxen AdvReac Severe Bleeding Verified 10/23/24 07:23 Surgical History History of esophagogastroduodenoscopy (EGD) Hx of nevus excision Hx laparoscopic cholecystectomy H/O adenoidectomy Hx of section Hx of tonsillectomy Social History Smoking Status: Former smoker ROS Constitutional Constitutional: Denies fatigue, fever(s), poor appetite, weight gain or weight loss Gastrointestinal Gastrointestinal: Denies belching, bloating, change in bowel habits, change in stool character, chewing difficulty, coffee ground emesis, constipation, cramping, diarrhea, dyspepsia, dysphagia, early satiety, excessive flatus, fecal incontinence, heartburn, hematemesis, hematochezia, hemorrhoids, loose stools, melena, nausea, odynophagia, rectal bleeding, tenesmus, vomiting or weight changes Vital Signs Vital Signs Vital Signs: 10/23/24 07:27 10/23/24 07:27 Temperature 99.7 F H Temperature Source Temporal Pulse Rate 91 Respiratory Rate 16 Respiratory Pattern Normal Blood Pressure 104/66 Blood Pressure Mean 78 Blood Pressure Source Monitor Blood Pressure Position Sitting Blood Pressure Location Right Arm Pulse Ox 97 Oxygen Delivery Method Room Air Weight Weight: 176 lb 5.917 oz Body Mass Index (BMI) 32.2 Physical Exam Const alert, oriented x3, no apparent distress and healthy appearing General Appearance: cooperative GI normal to inspection, nondistended, normoactive bowel sounds, soft to palpation, non-tender and non-distended Percussion: normal to percussion Rectal Exam: deferred Results Lab / Micro Data Labs: Laboratory Results - last 24 hr 10/23/24 07:05: Urine Test Negative Assessment & Plan Assessment/Plan (1) Rectal bleeding: (2) Elevated lipase: (3) Gastroenteritis: PLAN: Assessment and Plan Assessment and Plan (1) Pancreatic lesion: Status: Acute (2) Elevated lipase: Status: Acute Orders: Orders Abdomen without Contrast Today K86.9 - Disease of pancreas, unspecified Lipase Today K86.9 - Disease of pancreas, unspecified, R74.8 - Abnormal levels of other serum enzymes Plan 29-year-old female with a history of IBS and von Willebrand disease type I, presenting for evaluation following an ED visit for abdominal pain and rectal bleeding. Imaging revealed descending and rectosigmoid colitis with surrounding mesenteric stranding, most consistent with infectious colitis. Her hemoglobin is stable at 15.7, and there is no leukocytosis. The mild lipase elevation (253) is of unclear significance but may represent a reactive process. No stool studies were obtained during her ED visit. Given her underlying bleeding disorder, it is reassuring that symptoms improved with DDAVP, suggesting mucosal friability likely exacerbated by inflammation. At this time, infectious colitis remains the most likely diagnosis, though other causes such as IBD or ischemic colitis should be considered if symptoms persist or worsen. Given the clinical presentation and imaging findings concerning for infectious colitis, I will obtain stool studies including a GI PCR panel, C. Diff, O&P, and fecal calprotectin to help differentiate infectious from inflammatory etiologies. If symptoms do not improve or recur after completing her 10-day course of Augmentin, we will consider colonoscopy to evaluate for IBD, ischemic colitis, or other structural causes. She should continue DDAVP as directed by hematology if bleeding recurs, and we will coordinate with her fiscal manager as needed for future management or procedures. Supportive care with hydration and dietary modifications is advised. A follow-up appointment should be scheduled in 2 weeks to assess clinical response and review results. CT scan completed June 2024 revealed a 1.2cm ovoid hypodense nodule inferior to the mid pancreatic body; while likely benign; given this incidental findings and an elevated Lipase (253), further charecterization with pancreatic protocol MRI is warranted to assess for underlying pancreatic pathology and to better define the nature of this lesion. Note: [employer] speech recognition signal operator software was used to create portions of this document. Sound-alike and misspelled words, as well as other signal operator errors may be contained in the documentation. Patient Instructions: Complete ATB Complete stool testing - stool kit provided at [facility] today (GI PCR, C. Diff, H. Pylori, Calprotectin, O&P) MRI pancreas to f/u incidental lesion noted on prior CT Patient to call [facility] film room to obtain copy of CT to hand carry to MRI appt for comparison Follow-up in 2 weeks Plan Details Forms: Work Excuse
--- NOTE | 2024-10-23 08:30 | COLBX_PTH ---
PATIENT: MELINDA RAYMOND LOC: [facility] U#:[id number] AGE/SX: 29/F ROOM: RE10/23/[address]: Dr. Jagjit Mcmillan DO : 1995 BED: DIS: 10/23/2024 SPEC #: [id number] RECD: 10/23/24 11:16 STATUS: BOAZ REDenisse #: [id number] JAIME: 10/23/24 08:[address]: Jagjit Mcmillan DEPT: SURGICAL PATHOLOGY RECD BY: Germán Aiken ENTERED: 10/23/24 14:00 SP TYPE: COLON BX OTHR DR: Dr. Marlene Lara MD Tissues: A - Ileum, NOS B - COLON BIOPSY C - Rectum, NOS Procedures: Surgery Specimen Level IV HEADER OPERATION: Colonoscopy with biopsy PRE-OP DIAGNOSIS: Rectal bleeding, elevated lipase, gastroenteritis, pancreatic lesion TISSUE SUBMITTED: A- Terminal ileum biopsy, B- Random colon biopsy, C- Rectal ulcer biopsy MICROSCOPIC DIAGNOSIS A. Terminal ileum, biopsy: - Normal villous architecture with prominent mucosal lymphoid tissue, favor reactive. - Fragment of benign colonic mucosa. B. Colon, random, biopsy: - No specific pathologic change. - The histologic features of microscopic colitis are not demonstrated. C. Rectum, ulcer, biopsy: - Colorectal mucosa with acute inflammation, superficial erosion, and prolapse changes - see note. Note: The histologic differential diagnosis includes so-called solitary rectal ulcer syndrome as well as ischemia and infection. Recommend correlation with clinical and endoscopic findings. MICROSCOPIC DESCRIPTION Slides are reviewed. GROSS DESCRIPTION A. Received in fixative is one container labeled with the patient's name and designated Terminal ileum biopsy. The specimen consists of multiple irregular fragments of light kim soft tissue that in aggregate measure <0.1 to 0.4 cm. The specimen is totally submitted in one cassette. B. Received in fixative is one container labeled with the patient's name and designated Random colon biopsy. The specimen consists of multiple irregular fragments of light kim soft tissue that in aggregate measure 1.5 x 0.5 x 0.2 cm. The specimen is totally submitted in one cassette. C. Received in fixative is one container labeled with the patient's name and designated Rectal ulcer biopsy. The specimen consists of multiple irregular fragments of light kim soft tissue that in aggregate measure 0.1 to 0.3 cm. The specimen is totally submitted in one cassette. ROXANNE/ 10/23/2024 CPT:52562s4
--- NOTE | 2024-10-23 08:30 | COLBX_PTH ---
PATIENT: MELINDA RAYMOND LOC: [facility] U#:[id number] AGE/SX: 29/F ROOM: RE10/23/[address]: Dr. Jagjit Mcmillan DO : 1995 BED: DIS: 10/23/2024 SPEC #: [id number] RECD: 10/23/24 11:16 STATUS: BOAZ REDenisse #: [id number] JAIME: 10/23/24 08:[address]: Jagjit Mcmillan DEPT: SURGICAL PATHOLOGY RECD BY: Germán Aiken ENTERED: 10/23/24 14:00 SP TYPE: COLON BX OTHR DR: Dr. Marlene Lara MD Tissues: A - Ileum, NOS B - COLON BIOPSY C - Rectum, NOS Procedures: Surgery Specimen Level IV HEADER OPERATION: Colonoscopy with biopsy PRE-OP DIAGNOSIS: Rectal bleeding, elevated lipase, gastroenteritis, pancreatic lesion TISSUE SUBMITTED: A- Terminal ileum biopsy, B- Random colon biopsy, C- Rectal ulcer biopsy MICROSCOPIC DIAGNOSIS A. Terminal ileum, biopsy: - Normal villous architecture with prominent mucosal lymphoid tissue, favor reactive. - Fragment of benign colonic mucosa. B. Colon, random, biopsy: - No specific pathologic change. - The histologic features of microscopic colitis are not demonstrated. C. Rectum, ulcer, biopsy: - Colorectal mucosa with acute inflammation, superficial erosion, and prolapse changes - see note. Note: The histologic differential diagnosis includes so-called solitary rectal ulcer syndrome as well as ischemia and infection. Recommend correlation with clinical and endoscopic findings. MICROSCOPIC DESCRIPTION Slides are reviewed. GROSS DESCRIPTION A. Received in fixative is one container labeled with the patient's name and designated Terminal ileum biopsy. The specimen consists of multiple irregular fragments of light kim soft tissue that in aggregate measure <0.1 to 0.4 cm. The specimen is totally submitted in one cassette. B. Received in fixative is one container labeled with the patient's name and designated Random colon biopsy. The specimen consists of multiple irregular fragments of light kim soft tissue that in aggregate measure 1.5 x 0.5 x 0.2 cm. The specimen is totally submitted in one cassette. C. Received in fixative is one container labeled with the patient's name and designated Rectal ulcer biopsy. The specimen consists of multiple irregular fragments of light kim soft tissue that in aggregate measure 0.1 to 0.3 cm. The specimen is totally submitted in one cassette. ROXANNE/ 10/23/2024 CPT:57258t7
--- NOTE | 2024-10-23 08:31 | PCM.PRE.AN2 ---
ASA Classification* ASA Classification ASA Classification: 3 Assessment & Plan Anesthesia* Anesthesia Assessment Anesthesia Assessment: Discussed sedation and/or anesthesia options, risks, benefits, and alternatives with patient/parents/legal guardian/POA. Questions invited. The patient/parents/legal guardian/POA seems to understand and agrees to proceed with anesthesia plan. Reviewed the physical assessment, medical history, allergy history and patient home medications list prior to surgery/procedure/anesthetic and documented any changes. Performed airway and anesthesia risk assessments. Anesthesia Type Anesthesia Type: MAC History Source History Obtained from:: Patient and Chart Anesthesia Focused Assessment* Temperature: 99.7 F Pulse Rate: 91 Blood Pressure: 104/66 Respiratory Rate: 16 Pulse Ox: 97 Oxygen Delivery Method: Room Air Airway Assessment Mouth opens: >3 cm Mallampati Score: III Teeth Condition: Chipped/Broken (Patient has several broken teeth.) and Missing (Patient has several missing teeth.) Neck Range of motion (ROM): Full ROM Labs Anesthesia Preop lab: CBC WBC 10.0 K/mm3 (4.4-11.0) 08/31/24 14:05 08/31/24 RBC 5.16 M/mm3 (4.2-5.4) 08/31/24 14:05 08/31/24 Hgb 15.7 g/dL (12.0-15.0) H 08/31/24 14:05 08/31/24 Hct 44.4 % (37-47) 08/31/24 14:05 08/31/24 Plt Count 260 K/mm3 (150-450) 08/31/24 14:05 08/31/24 CHEMISTRY Potassium 3.4 mmol/L (3.3-5.1) 08/31/24 14:05 08/31/24 Sodium 138 mmol/L (133-145) 08/31/24 14:05 08/31/24 BUN 7 mg/dL (4-19) 08/31/24 14:05 08/31/24 Creatinine 0.72 mg/dL (0.70-1.20) 08/31/24 14:05 08/31/24 Glucose 80 mg/dL (70-99) 08/31/24 14:05 08/31/24 COAG Urine Test Negative Negative 10/23/24 07:05 10/23/24 Pre-Assessment Diagnosis/Proposed Procedure Planned Operative Procedure(s): CSCOPE Anesthesia History 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 When Was Last Pacemaker Check QUESTION #4 FULL TEXT: You/Your Family Experience fever (hyperthermia) with Anesthesia Last Oral Intake Last Oral intake: Last Oral Intake NPO since 06:00 10/23/24 07:27 Meds taken in AM with sips of Yes 10/23/24 07:27 water? Meds patient instructed to XANAX 10/23/24 07:27 take am of surgery Any additional information?: Yes NPO since: 06:00 (Patient had a Xanax at 6 AM.) Meds taken in AM with sips of water?: Yes PONV PONV - airport shuttle driver: PONV - airport shuttle driver Female Yes 10/20/24 10:36 HX of Motion Sickness Yes 10/20/24 10:36 HX of N/V After Surgery Yes 10/20/24 10:36 Non-Smoker Yes 10/20/24 10:36 Duration of Surgery greater No 10/20/24 10:36 than 60 minutes Number of Risk Factors 4 10/20/24 10:36 PONV Score Severe Risk 10/20/24 10:36 Height & Weight Height & Weight: Anesthesia: Height & Weight Height 5 ft 2 in 10/23/24 07:27 Weight: 80 kg 10/23/24 07:27 Body Mass Index (BMI) 32.2 10/23/24 07:27 Respiratory Assessment Respiratory Assessment - airport shuttle driver: Respiratory Tract Infection Hx - airport shuttle driver Hx Respiratory Tract Infection No 10/20/24 10:36 STOP Sleep Apnea STOP Sleep Apnea - airport shuttle driver: STOP Sleep Apnea - airport shuttle driver Hx Hypertension No 10/20/24 10:36 Hx Sleep Apnea No 10/20/24 10:36 CPAP BIPAP Do you snore loudly (louder No 10/20/24 10:36 than talking or can be heard Do you often feel tired/ Yes 10/20/24 10:36 fatigued/ sleepy during daytime? Has anyone observed you stop No 10/20/24 10:36 breathing during sleep? STOP Results Negative 10/20/24 10:36 QUESTION #5 FULL TEXT : Do you snore loudly (louder than talking or can be heard through closed doors)? 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 Tobacco Use Smoking Status Former smoker 10/20/24 10:36 Hx Tobacco Use No 10/20/24 10:36 Years Smoking Packs Smoked per Day Smoking Cessation Date was Yes - quit smoking within 15 10/20/24 10:36 within the last 15 years years Hx Smoking Cessation Date 04/26/21 10/20/24 10:36 Hx Smoking Cessation No 10/20/24 10:36 Counseling Hematologic Medial History Hematologic Hx - airport shuttle driver: Hematologic Medical Hx - documentation consultant Hx of Blood Transfusion No 10/20/24 10:36 Hx of Transfusion in last 3 No 10/20/24 10:36 Months Date of Last Transfusion (if within last 3 months) Ever experience any problems No 10/20/24 10:36 with transfusion(s)? 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 confused, unrespo /Reproduction History /Reproductive History - airport shuttle driver: /Reproductive Hx- airport shuttle driver Hx Now No 10/20/24 10:36 Gestational Age (in weeks): EDC: Hx Hx Para Hx Section SAB No 10/20/24 10:36 Active Medications Active Medications: Current Medications Generic Name Dose Route Start Last Admin Trade Name Freq PRN Reason Stop Dose Admin Tranexamic Acid 2,000 mg/ 120 mls @ 280 mls/hr 10/23/24 07:00 10/23/24 07:43 Sodium Chloride IV 280 mls/hr X1 MARYLU Administration Sodium Chloride 1,000 mls @ 15 mls/hr 10/23/24 07:05 10/23/24 07:43 IV 15 mls/hr .Q48H MARYLU Administration PFSH Medical History PTSD (post-traumatic stress disorder) Anxiety Marijuana use Anemia Dietary restriction History of GI bleed History of diverticulitis Gastric reflux Former smoker Tachycardia Vesico-ureteral reflux IBS (irritable bowel syndrome) Von Willebrand disease Gastroenteritis Home Medications ?Medication ?Instructions ?Recorded ?Last Taken ?Type ondansetron 8 mg disintegrating 8 mg PO Q12H PRN nausea and 03/14/23 10/22/24 History tablet vomiting escitalopram oxalate 20 mg tablet 20 mg PO QHS 08/31/24 10/22/24 History hyoscyamine sulfate 0.125 mg 0.125 - 0.25 mg sublingual TID PRN 08/31/24 Unknown History sublingual tablet dyspepsia promethazine 12.5 mg tablet 12.5 mg PO TID PRN nausea and 08/31/24 Unknown History vomiting alprazolam 0.5 mg tablet (Xanax) 0.5 mg PO ONCE PRN anxiety 09/04/24 10/23/24 History aminocaproic acid 250 mg/mL (25 %) 5,000 mg PO Q6H PRN PRN FOR 10/20/24 Unknown History oral solution BLEEDING acetaminophen 325 mg tablet (Pain 650 mg PO Q4H PRN pain 10/23/24 Unknown History Relief (acetaminophen)) Allergy/AdvReac Type Severity Reaction Status Date / Time hydrocodone (From Vicodin) Allergy Intermediate Hives Verified 10/23/24 07:23 dicyclomine Allergy Mild palpitation Verified 10/23/24 07:23 s aspirin AdvReac Severe Bleeding Verified 10/23/24 07:23 ibuprofen AdvReac Severe Bleeding Verified 10/23/24 07:23 naproxen AdvReac Severe Bleeding Verified 10/23/24 07:23 Surgical History History of esophagogastroduodenoscopy (EGD) Hx of nevus excision Hx laparoscopic cholecystectomy H/O adenoidectomy Hx of section Hx of tonsillectomy Social History Smoking Status: Former smoker Review of Systems (Anesthesia) ROS Narrative System reviewed and no additional complaints, except as documented.
--- NOTE | 2024-10-23 08:31 | PCM.PRE.AN2 ---
ASA Classification* ASA Classification ASA Classification: 3 Assessment & Plan Anesthesia* Anesthesia Assessment Anesthesia Assessment: Discussed sedation and/or anesthesia options, risks, benefits, and alternatives with patient/parents/legal guardian/POA. Questions invited. The patient/parents/legal guardian/POA seems to understand and agrees to proceed with anesthesia plan. Reviewed the physical assessment, medical history, allergy history and patient home medications list prior to surgery/procedure/anesthetic and documented any changes. Performed airway and anesthesia risk assessments. Anesthesia Type Anesthesia Type: MAC History Source History Obtained from:: Patient and Chart Anesthesia Focused Assessment* Temperature: 99.7 F Pulse Rate: 91 Blood Pressure: 104/66 Respiratory Rate: 16 Pulse Ox: 97 Oxygen Delivery Method: Room Air Airway Assessment Mouth opens: >3 cm Mallampati Score: III Teeth Condition: Chipped/Broken (Patient has several broken teeth.) and Missing (Patient has several missing teeth.) Neck Range of motion (ROM): Full ROM Labs Anesthesia Preop lab: CBC WBC 10.0 K/mm3 (4.4-11.0) 08/31/24 14:05 08/31/24 RBC 5.16 M/mm3 (4.2-5.4) 08/31/24 14:05 08/31/24 Hgb 15.7 g/dL (12.0-15.0) H 08/31/24 14:05 08/31/24 Hct 44.4 % (37-47) 08/31/24 14:05 08/31/24 Plt Count 260 K/mm3 (150-450) 08/31/24 14:05 08/31/24 CHEMISTRY Potassium 3.4 mmol/L (3.3-5.1) 08/31/24 14:05 08/31/24 Sodium 138 mmol/L (133-145) 08/31/24 14:05 08/31/24 BUN 7 mg/dL (4-19) 08/31/24 14:05 08/31/24 Creatinine 0.72 mg/dL (0.70-1.20) 08/31/24 14:05 08/31/24 Glucose 80 mg/dL (70-99) 08/31/24 14:05 08/31/24 COAG Urine Test Negative Negative 10/23/24 07:05 10/23/24 Pre-Assessment Diagnosis/Proposed Procedure Planned Operative Procedure(s): CSCOPE Anesthesia History 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 When Was Last Pacemaker Check QUESTION #4 FULL TEXT: You/Your Family Experience fever (hyperthermia) with Anesthesia Last Oral Intake Last Oral intake: Last Oral Intake NPO since 06:00 10/23/24 07:27 Meds taken in AM with sips of Yes 10/23/24 07:27 water? Meds patient instructed to XANAX 10/23/24 07:27 take am of surgery Any additional information?: Yes NPO since: 06:00 (Patient had a Xanax at 6 AM.) Meds taken in AM with sips of water?: Yes PONV PONV - molding and trim installer: PONV - molding and trim installer Female Yes 10/20/24 10:36 HX of Motion Sickness Yes 10/20/24 10:36 HX of N/V After Surgery Yes 10/20/24 10:36 Non-Smoker Yes 10/20/24 10:36 Duration of Surgery greater No 10/20/24 10:36 than 60 minutes Number of Risk Factors 4 10/20/24 10:36 PONV Score Severe Risk 10/20/24 10:36 Height & Weight Height & Weight: Anesthesia: Height & Weight Height 5 ft 2 in 10/23/24 07:27 Weight: 80 kg 10/23/24 07:27 Body Mass Index (BMI) 32.2 10/23/24 07:27 Respiratory Assessment Respiratory Assessment - molding and trim installer: Respiratory Tract Infection Hx - molding and trim installer Hx Respiratory Tract Infection No 10/20/24 10:36 STOP Sleep Apnea STOP Sleep Apnea - molding and trim installer: STOP Sleep Apnea - molding and trim installer Hx Hypertension No 10/20/24 10:36 Hx Sleep Apnea No 10/20/24 10:36 CPAP BIPAP Do you snore loudly (louder No 10/20/24 10:36 than talking or can be heard Do you often feel tired/ Yes 10/20/24 10:36 fatigued/ sleepy during daytime? Has anyone observed you stop No 10/20/24 10:36 breathing during sleep? STOP Results Negative 10/20/24 10:36 QUESTION #5 FULL TEXT : Do you snore loudly (louder than talking or can be heard through closed doors)? Tobacco Use History Tobacco Use History - molding and trim installer: Tobacco Use History - molding and trim installer Tobacco Use Smoking Status Former smoker 10/20/24 10:36 Hx Tobacco Use No 10/20/24 10:36 Years Smoking Packs Smoked per Day Smoking Cessation Date was Yes - quit smoking within 15 10/20/24 10:36 within the last 15 years years Hx Smoking Cessation Date 04/26/21 10/20/24 10:36 Hx Smoking Cessation No 10/20/24 10:36 Counseling Hematologic Medial History Hematologic Hx - molding and trim installer: Hematologic Medical Hx - cash register balancer Hx of Blood Transfusion No 10/20/24 10:36 Hx of Transfusion in last 3 No 10/20/24 10:36 Months Date of Last Transfusion (if within last 3 months) Ever experience any problems No 10/20/24 10:36 with transfusion(s)? 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 confused, unrespo /Reproduction History /Reproductive History - molding and trim installer: /Reproductive Hx- molding and trim installer Hx Now No 10/20/24 10:36 Gestational Age (in weeks): EDC: Hx Hx Para Hx Section SAB No 10/20/24 10:36 Active Medications Active Medications: Current Medications Generic Name Dose Route Start Last Admin Trade Name Freq PRN Reason Stop Dose Admin Tranexamic Acid 2,000 mg/ 120 mls @ 280 mls/hr 10/23/24 07:00 10/23/24 07:43 Sodium Chloride IV 280 mls/hr X1 MARYLU Administration Sodium Chloride 1,000 mls @ 15 mls/hr 10/23/24 07:05 10/23/24 07:43 IV 15 mls/hr .Q48H MARYLU Administration PFSH Medical History PTSD (post-traumatic stress disorder) Anxiety Marijuana use Anemia Dietary restriction History of GI bleed History of diverticulitis Gastric reflux Former smoker Tachycardia Vesico-ureteral reflux IBS (irritable bowel syndrome) Von Willebrand disease Gastroenteritis Home Medications ?Medication ?Instructions ?Recorded ?Last Taken ?Type ondansetron 8 mg disintegrating 8 mg PO Q12H PRN nausea and 03/14/23 10/22/24 History tablet vomiting escitalopram oxalate 20 mg tablet 20 mg PO QHS 08/31/24 10/22/24 History hyoscyamine sulfate 0.125 mg 0.125 - 0.25 mg sublingual TID PRN 08/31/24 Unknown History sublingual tablet dyspepsia promethazine 12.5 mg tablet 12.5 mg PO TID PRN nausea and 08/31/24 Unknown History vomiting alprazolam 0.5 mg tablet (Xanax) 0.5 mg PO ONCE PRN anxiety 09/04/24 10/23/24 History aminocaproic acid 250 mg/mL (25 %) 5,000 mg PO Q6H PRN PRN FOR 10/20/24 Unknown History oral solution BLEEDING acetaminophen 325 mg tablet (Pain 650 mg PO Q4H PRN pain 10/23/24 Unknown History Relief (acetaminophen)) Allergy/AdvReac Type Severity Reaction Status Date / Time hydrocodone (From Vicodin) Allergy Intermediate Hives Verified 10/23/24 07:23 dicyclomine Allergy Mild palpitation Verified 10/23/24 07:23 s aspirin AdvReac Severe Bleeding Verified 10/23/24 07:23 ibuprofen AdvReac Severe Bleeding Verified 10/23/24 07:23 naproxen AdvReac Severe Bleeding Verified 10/23/24 07:23 Surgical History History of esophagogastroduodenoscopy (EGD) Hx of nevus excision Hx laparoscopic cholecystectomy H/O adenoidectomy Hx of section Hx of tonsillectomy Social History Smoking Status: Former smoker Review of Systems (Anesthesia) ROS Narrative System reviewed and no additional complaints, except as documented.
--- NOTE | 2024-10-23 09:32 | PCM.POST.ANE ---
Anesthesia: Postop Eval I Current Vital Signs Temperature: 97.4 F Pulse Rate: 94 Blood Pressure: 96/61 Respiratory Rate: 16 Pulse Ox: 100 Assessment Airway patent: Yes Spontaneous unlabored respirations: Yes nausea: No Vomiting: No Anesthesia Complication: No Fluid Hydration Crystalloid volume administer (ml): 600 Total IV fluid infused: 600 Progress Note Anesthesia document: Postop Eval 1 completed: Yes
--- NOTE | 2024-10-23 09:33 | OP.CCLET_ITS ---
10/23/2024 Marlene Lara Md Re : Colonoscopy procedure for Jerrica Suggs Dear Dr. Lara This procedure was performed on Wednesday, October 23, 2024. My impressions and recommendations are as follows: Impressions : - A single (solitary) ulcer in the rectum. Biopsied. - Mild inflammation was found in the ileum secondary to ileitis. Biopsied. Recommendations : - Discharge patient to home. - Resume previous diet. - Continue present medications. - Await pathology results. - Repeat colonoscopy for surveillance based on pathology results. My findings are described in the full procedure note, which is enclosed. If I can be of further assistance, please feel free to contact me at . Sincerely, Jagjit Mcmillan, 10/23/2024 9:33:07 AM This report has been signed electronically.
--- NOTE | 2024-10-23 09:33 | OP.COLON_ITS ---
Patient Name: Jerrica Suggs Procedure Date: 10/23/2024 8:57 AM Date of : 1995 Age: 29 Procedure: Colonoscopy Indications: Hematochezia Providers: Jagjit Mcmillan DO Referring MD: Marlene Lara Md Medicines: Monitored Anesthesia Care Patient Profile: Last Colonoscopy: none. The patient's first colonoscopy is today. Complications: No immediate complications. Procedure: Pre-Anesthesia Assessment: - Prior to the procedure, a History and Physical was performed, and patient medications and allergies were reviewed. The patient is competent. The risks and benefits of the procedure and the sedation options and risks were discussed with the patient. All questions were answered and informed consent was obtained. Patient identification and proposed procedure were verified by the physician in the pre-procedure area. Mental Status Examination: alert and oriented. Airway Examination: normal oropharyngeal airway and neck mobility. Respiratory Examination: clear to auscultation. CV Examination: normal. Prophylactic Antibiotics: The patient does not require prophylactic antibiotics. Prior Anticoagulants: The patient has taken no anticoagulant or antiplatelet agents. ASA Grade Assessment: II - A patient with mild systemic disease. After reviewing the risks and benefits, the patient was deemed in satisfactory condition to undergo the procedure. The anesthesia plan was to use monitored anesthesia care (MAC). Immediately prior to administration of medications, the patient was re-assessed for adequacy to receive sedatives. The heart rate, respiratory rate, oxygen saturations, blood pressure, adequacy of pulmonary ventilation, and response to care were monitored throughout the procedure. The physical status of the patient was re-assessed after the procedure. After I obtained informed consent, the scope was passed under direct vision. Throughout the procedure, the patient's blood pressure, pulse, and oxygen saturations were monitored continuously. The colonoscope was introduced through the anus and advanced to the terminal ileum. The colonoscopy was performed without difficulty. The patient tolerated the procedure well. The quality of the bowel preparation was adequate. The terminal ileum, ileocecal valve, appendiceal orifice, and rectum were photographed. Scope In: 9:10:49 AM Scope Withdrawal Time 0 hours 9 minutes 35 seconds Scope Out: 9:23:26 AM Total Procedure Duration Time 0 hours 12 minutes 37 seconds Findings: The perianal and digital rectal examinations were normal. A single (solitary) six mm ulcer was found in the rectum. No bleeding was present. Stigmata of recent bleeding were present. Biopsies were taken with a cold forceps for histology. Verification of patient identification for the specimen was done. Estimated blood loss was minimal. Patchy mild inflammation characterized by erosions, erythema and friability was found in the distal ileum, in the terminal ileum and in the ileocecal valve. Biopsies were taken with a cold forceps for histology. Verification of patient identification for the specimen was done. Estimated blood loss was minimal. Impression: - A single (solitary) ulcer in the rectum. Biopsied. - Mild inflammation was found in the ileum secondary to ileitis. Biopsied. Recommendation: - Discharge patient to home. - Resume previous diet. - Continue present medications. - Await pathology results. - Repeat colonoscopy for surveillance based on pathology results. Procedure Code(s): --- Professional --- 43027, Colonoscopy, flexible; with biopsy, single or multiple CPT copyright 2021 [employer]. All rights reserved. The codes documented in this report are preliminary and upon belly packer review may be revised to meet current compliance requirements. Jagjit Mcmillan DO 10/23/2024 9:33:07 AM This report has been signed electronically. Number of Addenda: 0 Note Initiated On: 10/23/2024 8:57 AM
--- NOTE | 2024-10-23 09:33 | OP.COLON_ITS ---
Patient Name: Jerrica Suggs Procedure Date: 10/23/2024 8:57 AM Date of : 1995 Age: 29 Procedure: Colonoscopy Indications: Hematochezia Providers: Jagjit Mcmillan DO Referring MD: Marlene Lara Md Medicines: Monitored Anesthesia Care Patient Profile: Last Colonoscopy: none. The patient's first colonoscopy is today. Complications: No immediate complications. Procedure: Pre-Anesthesia Assessment: - Prior to the procedure, a History and Physical was performed, and patient medications and allergies were reviewed. The patient is competent. The risks and benefits of the procedure and the sedation options and risks were discussed with the patient. All questions were answered and informed consent was obtained. Patient identification and proposed procedure were verified by the physician in the pre-procedure area. Mental Status Examination: alert and oriented. Airway Examination: normal oropharyngeal airway and neck mobility. Respiratory Examination: clear to auscultation. CV Examination: normal. Prophylactic Antibiotics: The patient does not require prophylactic antibiotics. Prior Anticoagulants: The patient has taken no anticoagulant or antiplatelet agents. ASA Grade Assessment: II - A patient with mild systemic disease. After reviewing the risks and benefits, the patient was deemed in satisfactory condition to undergo the procedure. The anesthesia plan was to use monitored anesthesia care (MAC). Immediately prior to administration of medications, the patient was re-assessed for adequacy to receive sedatives. The heart rate, respiratory rate, oxygen saturations, blood pressure, adequacy of pulmonary ventilation, and response to care were monitored throughout the procedure. The physical status of the patient was re-assessed after the procedure. After I obtained informed consent, the scope was passed under direct vision. Throughout the procedure, the patient's blood pressure, pulse, and oxygen saturations were monitored continuously. The colonoscope was introduced through the anus and advanced to the terminal ileum. The colonoscopy was performed without difficulty. The patient tolerated the procedure well. The quality of the bowel preparation was adequate. The terminal ileum, ileocecal valve, appendiceal orifice, and rectum were photographed. Scope In: 9:10:49 AM Scope Withdrawal Time 0 hours 9 minutes 35 seconds Scope Out: 9:23:26 AM Total Procedure Duration Time 0 hours 12 minutes 37 seconds Findings: The perianal and digital rectal examinations were normal. A single (solitary) six mm ulcer was found in the rectum. No bleeding was present. Stigmata of recent bleeding were present. Biopsies were taken with a cold forceps for histology. Verification of patient identification for the specimen was done. Estimated blood loss was minimal. Patchy mild inflammation characterized by erosions, erythema and friability was found in the distal ileum, in the terminal ileum and in the ileocecal valve. Biopsies were taken with a cold forceps for histology. Verification of patient identification for the specimen was done. Estimated blood loss was minimal. Impression: - A single (solitary) ulcer in the rectum. Biopsied. - Mild inflammation was found in the ileum secondary to ileitis. Biopsied. Recommendation: - Discharge patient to home. - Resume previous diet. - Continue present medications. - Await pathology results. - Repeat colonoscopy for surveillance based on pathology results. Procedure Code(s): --- Professional --- 54670, Colonoscopy, flexible; with biopsy, single or multiple CPT copyright 2021 [employer]. All rights reserved. The codes documented in this report are preliminary and upon senior staff psychologist review may be revised to meet current compliance requirements. Jagjit Mcmillan DO 10/23/2024 9:33:07 AM This report has been signed electronically. Number of Addenda: 0 Note Initiated On: 10/23/2024 8:57 AM
--- NOTE | 2024-10-23 10:53 | POSTOPAN2_ITS ---
Anesthesia Postop Eval I Sum Postop Eval Completion status Anesthesia document: Postop Eval 1 completed: Yes Anesthesia Postop Eval I Summary Anesthesia Postop Eval I Summary: Anesthesia Postop Eval I: Assessment Summary Airway patent Yes 10/23/24 09:32 [email or web address] Spontaneous unlabored Yes 10/23/24 09:32 YARDAGE CONTROL [email or web address] respirations Mental status nausea No 10/23/24 09:32 YARDAGE CONTROL [email or web address] Vomiting No 10/23/24 09:32 YARDAGE CONTROL [email or web address] Anesthesia Postop Eval I: Fluid Summary Crystalloid volume administer 600 10/23/24 09:32 YARDAGE CONTROL [email or web address] (ml) Colloids volume administered ( ml) Blood Product volume administered (ml) Total IV fluid infused 600 10/23/24 09:32 YARDAGE CONTROL [email or web address] Anesthesia Postop Eval I: Summary Notes Anesthesia Complication No 10/23/24 09:32 YARDAGE CONTROL [email or web address] Anesthesia Complication Comment: Post-operative progress note Anesthesia: Postop Eval II Evaluation Mental status: Awake Pain Level: 1 nausea: No Vomiting: No
--- NOTE | 2024-10-23 10:53 | POSTOPAN2_ITS ---
Anesthesia Postop Eval I Sum Postop Eval Completion status Anesthesia document: Postop Eval 1 completed: Yes Anesthesia Postop Eval I Summary Anesthesia Postop Eval I Summary: Anesthesia Postop Eval I: Assessment Summary Airway patent Yes 10/23/24 09:32 WELDING MACHINE OPERATOR [email or web address] Spontaneous unlabored Yes 10/23/24 09:32 WELDING MACHINE OPERATOR [email or web address] respirations Mental status nausea No 10/23/24 09:32 WELDING MACHINE OPERATOR [email or web address] Vomiting No 10/23/24 09:32 WELDING MACHINE OPERATOR [email or web address] Anesthesia Postop Eval I: Fluid Summary Crystalloid volume administer 600 10/23/24 09:32 WELDING MACHINE OPERATOR [email or web address] (ml) Colloids volume administered ( ml) Blood Product volume administered (ml) Total IV fluid infused 600 10/23/24 09:32 WELDING MACHINE OPERATOR [email or web address] Anesthesia Postop Eval I: Summary Notes Anesthesia Complication No 10/23/24 09:32 WELDING MACHINE OPERATOR [email or web address] Anesthesia Complication Comment: Post-operative progress note Anesthesia: Postop Eval II Evaluation Mental status: Awake Pain Level: 1 nausea: No Vomiting: No
--- NOTE | 2024-10-23 10:53 | PCM.POSTANE2 ---
Anesthesia Postop Eval I Sum Postop Eval Completion status Anesthesia document: Postop Eval 1 completed: Yes Anesthesia Postop Eval I Summary Anesthesia Postop Eval I Summary: Anesthesia Postop Eval I: Assessment Summary Airway patent Yes 10/23/24 09:32 UNIT [email or web address] Spontaneous unlabored Yes 10/23/24 09:32 UNIT [email or web address] respirations Mental status nausea No 10/23/24 09:32 UNIT [email or web address] Vomiting No 10/23/24 09:32 UNIT [email or web address] Anesthesia Postop Eval I: Fluid Summary Crystalloid volume administer 600 10/23/24 09:32 UNIT [email or web address] (ml) Colloids volume administered ( ml) Blood Product volume administered (ml) Total IV fluid infused 600 10/23/24 09:32 UNIT [email or web address] Anesthesia Postop Eval I: Summary Notes Anesthesia Complication No 10/23/24 09:32 UNIT [email or web address] Anesthesia Complication Comment: Post-operative progress note Anesthesia: Postop Eval II Evaluation Mental status: Awake Pain Level: 1 nausea: No Vomiting: No
--- NOTE | 2024-10-23 10:53 | PCM.POSTANE2 ---
Anesthesia Postop Eval I Sum Postop Eval Completion status Anesthesia document: Postop Eval 1 completed: Yes Anesthesia Postop Eval I Summary Anesthesia Postop Eval I Summary: Anesthesia Postop Eval I: Assessment Summary Airway patent Yes 10/23/24 09:32 [email or web address] Spontaneous unlabored Yes 10/23/24 09:32 GLASS [email or web address] respirations Mental status nausea No 10/23/24 09:32 GLASS [email or web address] Vomiting No 10/23/24 09:32 GLASS [email or web address] Anesthesia Postop Eval I: Fluid Summary Crystalloid volume administer 600 10/23/24 09:32 GLASS [email or web address] (ml) Colloids volume administered ( ml) Blood Product volume administered (ml) Total IV fluid infused 600 10/23/24 09:32 GLASS [email or web address] Anesthesia Postop Eval I: Summary Notes Anesthesia Complication No 10/23/24 09:32 GLASS [email or web address] Anesthesia Complication Comment: Post-operative progress note Anesthesia: Postop Eval II Evaluation Mental status: Awake Pain Level: 1 nausea: No Vomiting: No
== END 2024-10-23 10:15 | disposition home or self-care (01) ==
LOC: EN 06:48 → AC 06:49
PROVIDERS: Anesthesiology; PCP Family Medicine; Referring Provider Family Medicine; Visit Provider Internal Medicine Gastroenterology
PROC: 0DJD8ZZ Inspection of Lower Intestinal Tract, Via Natural or Artificial Opening Endoscopic (ICD-10-PCS; CPT 45378; principal; 2024-10-23 08:25)
DX: K62.6 Ulcer of anus and rectum (principal); D68.01 Von Willebrand disease, type 1; K86.9 Disease of pancreas, unspecified; K21.9 Gastro-esophageal reflux disease without esophagitis; K58.9 Irritable bowel syndrome, unspecified; F41.9 Anxiety disorder, unspecified; F43.10 Post-traumatic stress disorder, unspecified; Z87.19 Personal history of other diseases of the digestive system; Z90.49 Acquired absence of other specified parts of digestive tract; Z79.899 Other long term (current) drug therapy; Z87.891 Personal history of nicotine dependence
CPT/HCPCS: 45380; 81025; 88305; 88342; J2405; J2597

== ENCOUNTER → 2024-11-02 | Outpatient (CLI) | payer OTHER, SELFPAY ==
[2024-11-02 14:19] LABS: Hematocrit 45.2 % (37-47); Hemoglobin 15.5 g/dL (12.0-15.0); Immature Granulocytes Count 0.020 X10^3/uL (0.0-0.0); Mean Corp Hgb Conc 34.3 g/dL (32-36); Mean Corpuscular Volume 88.8 fL (81-99); Mean Platelet Vol. 10.3 fl (6.2-12.0); NRBC Flagged by Analyzer 0 % (0-5); Platelet Count 271 K/mm3 (150-450); RBC Distribution Width CV 11.9 % (11.6-14.6); RBC Distribution Width SD 38.7 fl (35.1-43.9); Red Blood Count 5.09 M/mm3 (4.2-5.4); White Blood Count 8.1 K/mm3 (4.4-11.0)
[2024-11-02 15:21] LABS: CRP < 3.00 mg/L (0.0-3.0); Lipase 20 U/L (13-75)
== END | disposition home or self-care (01) ==
LOC: LAB 14:00
PROVIDERS: PCP Family Medicine; Referring Provider Nurse Practitioner Acute Care; Visit Provider Nurse Practitioner Acute Care
DX: K62.5 Hemorrhage of anus and rectum (principal); R74.8 Abnormal levels of other serum enzymes; K86.9 Disease of pancreas, unspecified
CPT/HCPCS: 36415; 83690; 85025; 86140

== ENCOUNTER → 2024-11-13 | Outpatient (CLI) | payer OTHER, SELFPAY ==
--- NOTE | 2024-11-13 14:21 | MRI_ITS ---
PROCEDURE: MRI ABD WITH AND W/O CONTRAST, 11/13/2024 REASON FOR EXAM: PANC LESION TECHNIQUE: Multiplanar multisequence MRI abdomen was performed with and without IV contrast. IV contrast: 15 mL Clariscan COMPARISON: 08/31/2024 FINDINGS: Variable overall mild motion limitation. A few sequences are moderately motion degraded. Note some abdominal viscera are excluded from the field of view as the exam was optimized for evaluation of the pancreas. Diffusion and MRCP were not performed. Liver: Unremarkable. Spleen: Unremarkable. Gallbladder: Gallbladder not visualized presumably post cholecystectomy. Pancreas: No focal lesion or ductal dilatation identified. Adrenals: 1.7 x 2.4 x 1.9 cm probably retroperitoneal nonenhancing simple appearing unilocular cystic structure most closely abutting the LEFT adrenal cranially and laterally and jejunal loops medially and also abutting the splenic vein inferiorly is of uncertain etiology and significance, however was present previously and has enlarged slightly from roughly 1.1 x 1.9 x 1.4 cm on 03/14/2023. No solid adrenal lesion identified. Kidneys: Unremarkable. Bowel: As above. Otherwise not well evaluated by MRI; no gross bowel dilatation.. Lymph nodes: Unremarkable. Vasculature: As above. Peritoneum: Unremarkable. Bones: Grossly unremarkable. MRI/MRI Abd WITH and W/O Contrast IMPRESSION: 1. Slightly limited exam as above. 2. No clear acute or suspicious pancreatic findings allowing for limitations. Correlate with the reported imaging demonstrating a pancreatic lesion. No suspicious ductal dilatation. 3. 2.4 cm probably retroperitoneal simple appearing cystic lesion most closely abutting the LEFT adrenal gland has enlarged minimally from 1.9 cm on 03/14/2023 and is of uncertain origin but doubtful cli nical significance given simple appearance and relatively slow rate of change. 4. Additional description as above. Reading Location: [id number]
== END | disposition home or self-care (01) ==
LOC: MRI 14:08
PROVIDERS: PCP Family Medicine; Referring Provider Nurse Practitioner Acute Care; Visit Provider Nurse Practitioner Acute Care
DX: R74.8 Abnormal levels of other serum enzymes (principal); K86.9 Disease of pancreas, unspecified
CPT/HCPCS: 74183; A9575; A4216